=== PATIENT | female | born 1960 | race Caucasian/White ===

== ENCOUNTER → 2018-01-24 14:02 | Outpatient (CLI) | payer MEDICARE, MEDICAID, SELFPAY ==
--- NOTE | 2018-01-24 14:07 | CT_ITS ---
STUDY: CT ABDOMEN AND PELVIS WITH CONTRAST REASON FOR EXAM: Female, 57 years old. Lower abdominal pain history of necrotizing fasciitis, hysterectomy cholecystectomy gastric bypass partial colectomy and small bowel surgery. RADIATION DOSAGE (If Supplied By Facility): CTDIvol = ( 26.17 ) mGy, DLP = ( 1982.56 ) mGycm TECHNIQUE: Transaxial images were obtained from the dome of the diaphragm to the symphysis pubis without oral contrast. 100 ml of Isovue 300 contrast was administered. Sagittal and coronal images were reconstructed. Individualized dose optimization techniques were used for this CT. COMPARISON: May 03, 2012 CT scan abdomen and pelvis FINDINGS: The visualized lung bases are unremarkable. The visualized portions of the heart are within normal limits. Normal liver. There are surgical clips in the gallbladder fossa consistent with a prior cholecystectomy. Normal spleen. There is diffuse atrophy of the pancreas. Normal bilateral adrenal glands. There is a small focus of cortical thinning in the right kidney suggesting old infection or infarction. There are least 2 stones in the lower pole of the right kidney each measuring approximately 4.3 mm. There is mild right-sided pelviectasis tortuosity of the right ureter without evidence of stone along the course of the ureter. Normal left kidney. There is postoperative change at the gastroesophageal junction and stomach which appears to be peristaltic and similar in contour when compared to the prior study. There is a patulous partially contrasted appearance of the duodenum. There is also contrast within the small bowel. There is fairly dense contrast within the colon with a somewhat chronic stasis appearance. There is a moderate amount of stool in the colon. There is postoperative change adjacent to the left side of the distal colon/rectum. There is lobulated focal fat, adjacent to the right side of the sigmoid and rectum. Since prior study there is been development of a anterior lower abdominal wall hernia possibly within a postoperative site for which the large bowel herniates down into the left side of the zackery pubis best appreciated on the sagittal view image #103 where the bowel is anterior to the symphysis pubis. This is also seen on image #122. This area suggestive of the cecum allowing for the remaining bowel. There is no visualize colon on the left side and is been removed. There is postoperative change in the small bowel within the pelvis proximal to this hernia. The opening measures approximately 5.2 cm and is directly above the symphysis pubis. The herniation measures approximately 9.3 x 5.7 cm. The bowel appears distended but not necessarily obstructed at this time. There is non-visualization of the appendix. Normal abdominal aorta. Normal inferior vena cava. There are a few nonspecific perinephric lymph nodes. Bladder is decompressed and low lying. There is absence of the uterus consistent with a prior hysterectomy. There is a visualized scarring in the abdominal wall and a absent or atrophied appearance of the rectus muscle in the lower abdominal wall. Normal osseous structures. CT/Abdomen/Pelvis WITH Contrast IMPRESSION: In an area of prior surgical site or scarring in anterior pelvic wall, there is a hernia above the symphysis pubis extending into the mons pubis region with neck of 5.2 cm, through which large bowel and small bowel herniate up to 9.3 x 5.7 cm. Recommend consideration for surgical consult. Status post operative change stomach, status post partial colectomy, status post cholecystectomy Status post hysterectomy and postoperative change anterior abdominal wall. Nonobstructing lower pole right renal stones. Electronically Signed: Alyssa Quinones MD at 9:21 EDT Tel , Service support ,
== END ==
PROVIDERS: Family Provider Internal Medicine; PCP Internal Medicine
DX: R10.30 Lower abdominal pain, unspecified (principal)
CPT/HCPCS: 74177; Q9967

== ENCOUNTER → 2018-06-09 12:09 | Outpatient (CLI) | payer MEDICARE, MEDICAID, SELFPAY ==
[2018-06-09 12:31] LABS: International Normalized Ratio 2.2; Prothrombin Time (Protime)PT. 24.7 SECONDS (11.7-14.9)
== END ==
PROVIDERS: Family Provider Internal Medicine; PCP Internal Medicine; Referring Provider Internal Medicine; Visit Provider Internal Medicine
DX: I26.99 Other pulmonary embolism without acute cor pulmonale (principal)
CPT/HCPCS: 85610

== ENCOUNTER → 2018-07-04 12:04 | Outpatient (CLI) | payer MEDICARE, MEDICAID, SELFPAY ==
[2018-07-04 12:18] LABS: International Normalized Ratio 1.4; Prothrombin Time (Protime)PT. 17.5 SECONDS (11.7-14.9)
--- OUTSIDE RECORDS SUMMARY | 2018-09-08 01:26 | XMS RPT_ITS ---
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 Jones for large incisional hernia. ?Biomarkers were negative. ?No evidence of right heart strain on CT. LE venous duplex negative. Patient discharged on Lovenox to coumadin bridge to be followed by Marcella OWEN. She is here today for follow up. Subjective: She is here today with . Activity: Back to normal. No plan for surgery in the future. States this was her 47th and final abdominal surgery. Back to driving. Admissions/ED visits since last seen: 06/06 for abdominal discomfort, prescribed flexeril, since has resolved She follows with Marcella OWEN. Last INR 1.3 on 06/26. Home dosage Saturday/Saturday 7.5mg, 5mg daily, next check this Saturday. Missed dosage: none Denies chest pain, SOB, worsening abdominal discomfort, UE/LE swelling. Endorses periodic wheezing while lying down but quickly resolved without medication. Appetite is good. Bleeding: Denies epistaxis, hemoptysis, hematemesis, hematuria, hematochezia or melena. Objective: BP 106/66 (BP Site: Left Arm, BP Cuff Size: Regular Adult) Pulse 110 Temp 36.8 ?C (98.2 ?F) (Oral) Ht 177.8 cm (5' 10) Wt 96.7 kg (213 lb 3.2 oz) SpO2 98% BMI 30.59 kg/m? General: Alert and oriented, in no acute distress, pleasant mood. Skin: Healthy, intact, no ulcerations, no rashes. HEENT: Head normocephalic, neck supple, no JVD, no carotid bruit. Cardiovascular: Heart has a regular rate and rhythm without murmur. Respiratory: Lungs clear auscultation bilaterally. Gastrointestinal: Abdomen soft and nontender. No abdominal bruit or palpable mass. Wearing binder Musculoskeletal: No cyanosis or clubbing. Peripheral vascular: Dorsalis pedis and posterior tibial pulses 2+/2 bilaterally. Feet and toes warm pink and well perfused. Lower extremities: No UE/LE swelling Labs Component INR (POCT) Internal Quality Check Latest Ref Rng AND Units 0.8 - 1.2 06/02/2018 1.4 (H) Acceptable 06/13/2018 2.8 (H) Acceptable 06/20/2018 1.8 (H) Acceptable 06/26/2018 1.3 (H) Acceptable Imaging 05/26/2018 CT Chest PE IMPRESSION: 1. ?The study is positive for pulmonary thromboemboli as described. 2. ?There are bilateral pleural effusions, right greater than left, with associated dependent airspace opacities in both lower lobes most commonly secondary to nonspecific atelectasis. 3. . There is a hiatal hernia. ?The intrathoracic esophagus is mildly distended and fluid-filled. ?Sequelae of a motility disorder such as GERD must be considered. Evaluation for thromboembolic disease: ?? ? - Right heart chambers: ?No thromboembolic disease. ?? ? - Main pulmonary arteries: ?No thromboembolic disease. ?? ? - Lobar pulmonary arteries: ?No thromboembolic disease. ?? ? - Segmental/subsegmental pulmonary arteries: There is an intraluminal filling defect in the anterior segmental artery of the left upper lobe (image 86) with probable extension into subsegmental arteries. ?Filling defects are also suspected in the distal apico-posterior segmental artery of the left upper lobe extending into subsegmental arteries (images 62-72). 05/27/2018 LE Venous Duplex IMPRESSION ? RIGHT SIDE - DEEP VEINS Negative for acute deep vein thrombosis. Only segments visualized of the posterior tibial veins and peroneal veins. RIGHT SIDE - SUPERFICIAL VEINS Unable to visualize the small saphenous vein. ? LEFT SIDE - DEEP VEINS Technically limited study. Negative for acute deep vein thrombosis in vessels visualized. Unable to visualize the peroneal veins. Only segments visualized of the posterior tibial veins. Assessment: 57 year old female found to have provoked PE (left segmental/subsegmental) on 05/26/2018 in the setting of abdominal surgery. LE venous duplex was negative. Currently on coumadin and tolerating. No clinical signs of bleeding. Follows with Marcella CC, INR's have been mostly subtherapeutic. Dose adjusted with next scheduled INR on Saturday. Denies any issues with bleeding. No LE/UE symptoms. Plan: _Continue coumadin being followed by Marcella [facility] -Target INR 2.0-3.0 _Continue to monitor for bleeding _Duration of treatment: at least 3 months for provoked VTE (VTE event 05/26/2018) _Follow up with Dr. Webster in 2 months to discuss duration of treatment JESSICA Pérez Referring Provider: MELINA MAGALLON (JESSICA) [[id number]] Allergies As of Date: 07/02/2018 Noted Allergy Reaction BACTRIM (SULFAMETHOXAZOLE) 08/13/2011 14 - Other: See Comments Comments: Cardiac issues, CIPRO IV only CIPRO I.V. (CIPROFLOXACIN) 06/28/2006 4 - Hives 12 - Shortness of Breath DIMETAPP (PSEUDOEPHEDRINE-DM) 12/04/2005 11 - Vomiting Comments: violently ill when overdosed on it as child ERYTHROMYCIN 11/29/2005 Comments: hives ok with zithromax KEFLEX (CEPHALEXIN) 11/29/2005 Comments: OK to give zosyn per MD 1-12-07 LATEX 11/29/2005 2 - Rash Comments: rash, breaks out everywhere, n/v , feels weak Can still eat food that is considered for latex allergies No allergic to latex foods per patient isaak 05/07/11 TETRACYCLINE 02/05/2006 Comments: hives Date Reviewed: 07/02/2018 Reviewed by: Melina Agarwal) JESSICA Magallon - Fully Assessed Reason for Visit: Follow Up [171] Cmt: PE - hosp f/u Primary Visit Diagnosis:Acute pulmonary embolism without acute cor pulmonale, unspecified pulmonary embolism type (HCC) [I26.99] Other Visit Diagnosis:Anticoagulation management encounter [Z51.81, Z79.01] Prescriptions as of 07/02/2018 Sig: WARFARIN 5 MG TABLET Take 1 tablet by mouth once d* Patient taking differently: Take 5 mg by mouth once daily* CYCLOBENZAPRINE 10 MG TABLET Take 1 tablet by mouth three * ONDANSETRON HCL 4 MG TABLET Take 1 tablet by mouth every * COMPOUNDED PRESCRIPTION KNEE HIGH COMPRESSION STOCKIN* DIAPER,BRIEF,ADULT,DISPOSABLE 1 Each as needed. Dx: N36.0,* ONDANSETRON HCL 4 MG TABLET Take 1 tablet by mouth every * PANTOPRAZOLE 40 MG TABLET,DEL* Take 1 tablet by mouth twice * GABAPENTIN 100 MG CAPSULE 300 mg daily at bedtime METOPROLOL SUCCINATE ER 25 MG* Take 1 tablet by mouth every * FESOTERODINE ER 8 MG TABLET,E* Take 1 tablet by mouth once d* LOSARTAN 50 MG TABLET Take 1 tablet by mouth every * ASPIRIN 81 MG TABLET,DELAYED * Take 1 tablet by mouth every * AMLODIPINE 5 MG TABLET Take 2 tablets by mouth every* INSULIN GLARGINE (U-100) 100 * Inject 10 Units subcutaneousl* MELOXICAM 15 MG TABLET Take 1 tablet by mouth every * QUETIAPINE 100 MG TABLET Take 1 tablet by mouth every * ZOLPIDEM 5 MG TABLET Take 1 tablet by mouth at bed* ESTRADIOL 0.01% (0.1 MG/GRAM)* 1/2 inch of cream to lower va* CLONAZEPAM 1 MG TABLET Take 1 tablet by mouth daily * INSULIN ASPART U-100 100 UNI* 15 units before meals + 2 u p* DULOXETINE 60 MG CAPSULE,JAG* Take 1 capsule by mouth daily* POTASSIUM CHLORIDE ER 10 MEQ * Take 1 tablet by mouth twice * BLOOD SUGAR DIAGNOSTIC STRIPS TEST BLOOD SUGAR 6 TO 8 TIMES* LANCETS Use as instructed to test blo* BLOOD-GLUCOSE METER KIT As directed PEN NEEDLE, DIABETIC 33 GAUGE* 1 Each as directed. Use with * LANCETS REGULAR MISC 1 Each as directed. Use 6 x d* CHOLECALCIFEROL (VITAMIN D3) * Take 1 capsule by mouth once * MULTIVITAMIN WITH CALCIUM AND* Take 1 tablet by mouth twice * BLOOD SUGAR DIAGNOSTIC, DISC * 1 Each as directed. 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 Essential Hypertension, Benign [I10] INVALID FOR* More... Hyperpotassemia [E87.5] INVALID FOR*04/15/2017 Abdominal pain, left lower quadrant [R10.32] INVALID FOR*04/15/2017 Abdominal pain, right lower quadrant [R10.31] INVALID FOR*04/15/2017 Abdominal Pain, Generalized [R10.84] INVALID FOR* HTN (hypertension) [I10] 04/15/2017 More... GERD (Gastroesophageal Reflux Disease) [K21.9] More... Irritable Bowel Syndrome [K58.9] RSD lower limb [G90.529] 04/15/2017 Open wound of abdominal wall, anterior, complic* 04/15/2017 Depressive disorder, not elsewhere classified [* More... Morbid obesity (HCC) [E66.01] INVALID FOR*12/25/2016 Dietary surveillance and counseling [Z71.3] INVALID FOR*04/15/2017 Gastric bypass status for obesity [Z98.84] INVALID FOR*04/15/2017 More... Nausea AND vomiting [R11.2] INVALID FOR*04/15/2017 Other and unspecified postsurgical nonabsorptio*INVALID FOR*04/15/2017 Osteoporosis [M81.0] INVALID FOR*08/20/2013 On total parenteral nutrition (TPN) [Z78.9] INVALID FOR*04/15/2017 Malabsorption [K90.9] INVALID FOR* Fracture [T14.8XXA] INVALID FOR*04/15/2017 Hernia of abdominal wall [K43.9] INVALID FOR* H/O hyperglycemia [Z86.39] INVALID FOR*04/15/2017 Diarrhea [R19.7] INVALID FOR* Insomnia [G47.00] INVALID FOR* More... Diabetic neuropathy, painful (HCC) [E11.40] INVALID FOR* More... DM (diabetes mellitus) (HCC) [E11.9] INVALID FOR* More... Unspecified intestinal malabsorption [K90.9] INVALID FOR* More... Osteoporosis [M81.0] INVALID FOR* More... Vitamin D deficiency [E55.9] INVALID FOR* More... Post-operative state [Z98.890] INVALID FOR*04/15/2017 Obesity (BMI 30.0-34.9) [E66.9] INVALID FOR* More... Chronic pain in right shoulder [M25.511, G89.29]INVALID FOR* More... Impingement syndrome of right shoulder [M75.41] INVALID FOR* More... Migraines [G43.909] INVALID FOR* DDD (degenerative disc disease), lumbar [M51.36]INVALID FOR* Acute pain of right shoulder [M25.511] INVALID FOR* Ventral hernia without obstruction or gangrene *INVALID FOR* More... Mixed stress and urge urinary incontinence [N39*INVALID FOR* Incisional hernia [K43.2] INVALID FOR* Ventral hernia [K43.9] INVALID FOR* Acute pulmonary embolism (HCC) [I26.99] INVALID FOR* Disposition: Return in about 2 months (around 08/30/2018) for Dr. Webster. Follow-up and Disposition History Recorded Encounter Status:Closed by MELINA MAGALLON on 07/02/18 PROGRESS Observed: 07/01/2018 Status: COMPLETED Source: [place] 2:46 PM [facility] REPOSITORY HNO ID: [id number] Author: Melina Lamb (Jessica) JESSICA Magallon Service: (none) Author Type: Physician Programs Assistant Type: Progress Notes Filed: 07/02/2018 1:20 PM Note Text: [facility] [place] [facility] Department of Cardiovascular Medicine SECTION OF VASCULAR MEDICINE OUTPATIENT VISIT DATE July 02, 2018 OUTPATIENT VISIT TYPE ESTABLISHED Follow up regarding: Provoked PE (left segmental/subsegmental) in the setting of surgery 05/26/2018 Allergies: is allergic to bactrim [sulfamethoxazole]; cipro i.v. [ciprofloxacin]; dimetapp [pseudoephedrine-dm]; erythromycin; keflex [cephalexin]; latex; and tetracycline. Medications: warfarin (COUMADIN) 5 mg tablet Take 1 tablet by mouth once daily. cyclobenzaprine (FLEXERIL) 10 mg tablet Take 1 tablet by mouth three times daily as needed for Muscle Spasm or Pain. ondansetron (ZOFRAN) 4 mg tablet Take 1 tablet by mouth every 8 hours as needed for Nausea/Vomiting. Compression Knee Highs KNEE HIGH COMPRESSION STOCKINGS 30- 40 MM. DX: EDEMA Diaper,Brief, Adult,Disposable (PREVAIL ADJUST UNDERWEAR KIMBERLEY- ) misc 1 Each as needed. Dx: N36.0, K58.9 ondansetron (ZOFRAN) 4 mg tablet Take 1 tablet by mouth every 8 hours as needed (for nausea.). pantoprazole DR (PROTONIX) 40 mg tablet Take 1 tablet by mouth twice daily before meals (0600/1600). gabapentin (NEURONTIN) 100 mg capsule 300 mg daily at bedtime metoprolol succinate ER (TOPROL XL) 25 mg 24 hr tablet Take 1 tablet by mouth every evening. Fesoterodine (TOVIAZ) 8 mg Tb24 Take 1 tablet by mouth once daily. losartan (COZAAR) 50 mg tablet Take 1 tablet by mouth every evening. aspirin, enteric coated (ASPIRIN, ENTERIC COATED) 81 mg EC tablet Take 1 tablet by mouth every evening. amLODIPine (NORVASC) 5 mg tablet Take 2 tablets by mouth every evening. insulin glargine (BASAGLAR KWIKPEN U-100 INSULIN) 100 unit/mL (3 mL) inpn Inject 10 Units subcutaneously every 12 hours. 20 units sq twice daily meloxicam (MOBIC) 15 mg tablet Take 1 tablet by mouth every evening. QUEtiapine (SEROQUEL) 100 mg tablet Take 1 tablet by mouth every evening. zolpidem (AMBIEN) 5 mg tablet Take 1 tablet by mouth at bedtime as needed (for insomnia.) for up to 180 days. estradiol (ESTRACE) 0.01 % (0.1 mg/gram) vaginal cream 1/2 inch of cream to lower vagina qhs twice weekly clonazePAM (KLONOPIN) 1 mg tablet Take 1 tablet by mouth daily at bedtime for 30 days. insulin aspart U-100 (NOVOLOG) 100 unit/mL inpn 15 units before meals + 2 u per 50 >200 TDD 75 units DULoxetine (CYMBALTA) 60 mg capsule Take 1 capsule by mouth daily at bedtime. potassium chloride (K-TAB) 10 mEq tablet Take 1 tablet by mouth twice daily. blood sugar diagnostic (ONETOUCH ULTRA TEST) test strip TEST BLOOD SUGAR 6 TO 8 TIMES DAILY Dx: E11.9 Insulin:yes Lancets lancets Use as instructed to test blood sugars 8 times daily E11.9 Blood-Glucose Meter (ONETOUCH ULTRA2) monitoring kit As directed pen needle, diabetic 33 gauge x 5/32 ndle 1 Each as directed. Use with injections 4x daily E11.9 LANCETS REGULAR MISC 1 Each as directed. Use 6 x daily cholecalciferol, Vitamin D3, (VITAMIN D3) 50,000 unit cap capsule Take 1 capsule by mouth once each week. Take with your largest meal of the day Multivits,CalciumAND Minerals-FA 267 mcg tab Take 1 tablet by mouth twice daily. Centrum Adult Chewables MVI with minerals is preferred; must be chewable Blood Sugar Diagnostic, Disc strp 1 Each as directed. CHECK BLOOD GLUCOSE EIGHT TIMES PER DAY/ Review of history: 57 year old female with PMH of multiple abdominal surgeries, DM, GERD, HTN, obesity s/p gastric bypass found to have provoked PE on chest CT in the setting of?bilateral myofasical flap with mesh repair on 05/21/[address] Jones for large incisional hernia. ?Biomarkers were negative. ?No evidence of right heart strain on CT. LE venous duplex negative. Patient discharged on Lovenox to coumadin bridge to be followed by Marcella OWEN. She is here today for follow up. Subjective: She is here today with . Activity: Back to normal. No plan for surgery in the future. States this was her 47th and final abdominal surgery. Back to driving. Admissions/ED visits since last seen: 06/06 for abdominal discomfort, prescribed flexeril, since has resolved She follows with Marcella OWEN. Last INR 1.3 on 06/26. Home dosage Saturday/Saturday 7.5mg, 5mg daily, next check this Saturday. Missed dosage: none Denies chest pain, SOB, worsening abdominal discomfort, UE/LE swelling. Endorses periodic wheezing while lying down but quickly resolved without medication. Appetite is good. Bleeding: Denies epistaxis, hemoptysis, hematemesis, hematuria, hematochezia or melena. Objective: BP 106/66 (BP Site: Left Arm, BP Cuff Size: Regular Adult) Pulse 110 Temp 36.8 ?C (98.2 ?F) (Oral) Ht 177.8 cm (5' 10) Wt 96.7 kg (213 lb 3.2 oz) SpO2 98% BMI 30.59 kg/m? General: Alert and oriented, in no acute distress, pleasant mood. Skin: Healthy, intact, no ulcerations, no rashes. HEENT: Head normocephalic, neck supple, no JVD, no carotid bruit. Cardiovascular: Heart has a regular rate and rhythm without murmur. Respiratory: Lungs clear auscultation bilaterally. Gastrointestinal: Abdomen soft and nontender. No abdominal bruit or palpable mass. Wearing binder Musculoskeletal: No cyanosis or clubbing. Peripheral vascular: Dorsalis pedis and posterior tibial pulses 2+/2 bilaterally. Feet and toes warm pink and well perfused. Lower extremities: No UE/LE swelling Labs Component INR (POCT) Internal Quality Check Latest Ref Rng AND Units 0.8 - 1.2 06/02/2018 1.4 (H) Acceptable 06/13/2018 2.8 (H) Acceptable 06/20/2018 1.8 (H) Acceptable 06/26/2018 1.3 (H) Acceptable Imaging 05/26/2018 CT Chest PE IMPRESSION: 1. ?The study is positive for pulmonary thromboemboli as described. 2. ?There are bilateral pleural effusions, right greater than left, with associated dependent airspace opacities in both lower lobes most commonly secondary to nonspecific atelectasis. 3. . There is a hiatal hernia. ?The intrathoracic esophagus is mildly distended and fluid-filled. ?Sequelae of a motility disorder such as GERD must be considered. Evaluation for thromboembolic disease: ?? ? - Right heart chambers: ?No thromboembolic disease. ?? ? - Main pulmonary arteries: ?No thromboembolic disease. ?? ? - Lobar pulmonary arteries: ?No thromboembolic disease. ?? ? - Segmental/subsegmental pulmonary arteries: There is an intraluminal filling defect in the anterior segmental artery of the left upper lobe (image 86) with probable extension into subsegmental arteries. ?Filling defects are also suspected in the distal apico-posterior segmental artery of the left upper lobe extending into subsegmental arteries (images 62-72). 05/27/2018 LE Venous Duplex IMPRESSION ? RIGHT SIDE - DEEP VEINS Negative for acute deep vein thrombosis. Only segments visualized of the posterior tibial veins and peroneal veins. RIGHT SIDE - SUPERFICIAL VEINS Unable to visualize the small saphenous vein. ? LEFT SIDE - DEEP VEINS Technically limited study. Negative for acute deep vein thrombosis in vessels visualized. Unable to visualize the peroneal veins. Only segments visualized of the posterior tibial veins. Assessment: 57 year old female found to have provoked PE (left segmental/subsegmental) on 05/26/2018 in the setting of abdominal surgery. LE venous duplex was negative. Currently on coumadin and tolerating. No clinical signs of bleeding. Follows with Marcella OWEN, INR's have been mostly subtherapeutic. Dose adjusted with next scheduled INR on Saturday. Denies any issues with bleeding. No LE/UE symptoms. Plan: _Continue coumadin being followed by Marcella OWEN -[facility] INR 2.0-3.0 _Continue to monitor for bleeding _Duration of treatment: at least 3 months for provoked VTE (VTE event 05/26/2018) _Follow up with Dr. Webster in 2 months to discuss duration of treatment JESSICA Pérez PROGRESS Observed: 06/26/2018 Status: COMPLETED Source: [place] 4:18 PM [facility] REPOSITORY HNO ID: [id number] Author: Paulina Rea LPN Service: (none) Author Type: (none) Type: Progress Notes Filed: 06/26/2018 4:21 PM Note Text: Phoned patient and went over coumadin instructions from Ibrahima Sarkar MOUNTER 5 mg daily except Saturday 7.5 mg and recheck INR in one week with understanding. Patient said I have to take so many pills but said coumadin tablets are 5 mg explained to take one and one half pills to make 7.5 mg she thought her pills were lower dose pills. Scheduled appt coumadin clinic for 07/03/2018. PROGRESS Observed: 06/26/2018 Status: COMPLETED Source: [place] 3:41 PM [facility] REPOSITORY HNO ID: [id number] Author: Ibrahima Sarkar Service: (none) Author Type: Nurse Practitioner Type: Progress Notes Filed: 06/26/2018 4:21 PM Note Text: Please have patient begin taking 5mg daily except take 7.5mg on Saturday. Recheck INR in 1 week. Ibrahima Sarkar APRN.CNP PROGRESS Observed: 06/26/2018 Status: COMPLETED Source: [place] 2:21 PM [facility] REPOSITORY HNO ID: [id number] Author: Francoise Zhao RN Service: (none) Author Type: (none) Type: Progress Notes Filed: 06/26/2018 2:23 PM Note Text: patient had inr completed at [facility] patients inr is 1.3(patients inr range is 2.0-3.0) patient is currently taking 2.5mg Sun and 5mg all other days patients last dose change was on 06/20/18 due to a low level of 1.8 (dose at that time was 2.5mg Sat,Sun and 5mg all other days) patient has had no changes in medication except for couamdin and no missed doses and no change in diet Advised patient that they would be contacted regarding medication dose and when to follow up after information is reviewed by provider. After provider review please contact the patient with information and schedule follow up appointment with coumadin clinic. PROGRESS Observed: 06/20/2018 Status: COMPLETED Source: [place] 5:17 PM [facility] REPOSITORY HNO ID: [id number] Author: Francoise Zhao RN Service: (none) Author Type: (none) Type: Progress Notes Filed: 06/20/2018 5:17 PM Note Text: PATIENT NOTIFIED OF INFORMATION PROGRESS Observed: 06/20/2018 Status: COMPLETED Source: [place] 5:01 PM [facility] REPOSITORY HNO ID: [id number] Author: Leon Jimenez Service: (none) Author Type: Physician Type: Progress Notes Filed: 06/20/2018 5:17 PM Note Text: Please ask the patient to take 2.5 mgs only on sundays and 5 mgs the rest of the week Recheck in a couple weeks PROGRESS Observed: 06/20/2018 Status: COMPLETED Source: [place] 2:44 PM [facility] REPOSITORY HNO ID: [id number] Author: Francoise Zhao RN Service: (none) Author Type: (none) Type: Progress Notes Filed: 06/20/2018 2:45 PM Note Text: patient had inr completed at [facility] patients inr is 1.8 (patients inr range is 2.0-3.0) patient is currently taking 2.5mg Sat,Sun and 5mg all other days patients last dose change was on 06/13/18 due to provider choice (level was normal at 2.8, dose was 5mg daily) patient has had no changes in medication except for coumadin and no missed doses and no change in diet Advised patient that they would be contacted regarding medication dose and when to follow up after information is reviewed by provider. After provider review please contact the patient with information and schedule follow up appointment with coumadin clinic. FYI - patient has been scheduled for a 1 week follow up inr on 06/26/18 CNOV Observed: 06/16/2018 Status: COMPLETED Source: [place] 3:20 PM [facility] REPOSITORY Office Visit (GENSMN) ADRI GOYAL ([id number]) 1960 F TPN Date Time Provider Department 06/16/18 3:20 PM DALIA JONES During your visit today, we recorded the following information about you: DALIA JONES MD 06/16/2018 3:16 PM Signed Adri Mcginnis Jay Jay is here for a post-op visit after open ventral hernia repair with mesh on 05/21. Her post-op course was complicated by a PE. she is doing very well and has no complaints. her incision has healed well and there is no evidence of hernia recurrence. We removed her drain, sutures and rona in clinic. I will see her back in 3 months for her next post- operative visit. Referring Provider: LEON JIMENEZ [[id number]] Allergies As of Date: 06/16/2018 Noted Allergy Reaction BACTRIM (SULFAMETHOXAZOLE) 08/13/2011 14 - Other: See Comments Comments: Cardiac issues, CIPRO IV only CIPRO I.V. (CIPROFLOXACIN) 06/28/2006 4 - Hives 12 - Shortness of Breath DIMETAPP (PSEUDOEPHEDRINE-DM) 12/04/2005 11 - Vomiting Comments: violently ill when overdosed on it as child ERYTHROMYCIN 11/29/2005 Comments: hives ok with zithromax KEFLEX (CEPHALEXIN) 11/29/2005 Comments: OK to give zosyn per MD 1--07 LATEX 11/29/2005 2 - Rash Comments: rash, breaks out everywhere, n/v , feels weak Can still eat food that is considered for latex allergies No allergic to latex foods per patient isaak 05/07/11 TETRACYCLINE 02/05/2006 Comments: hives Date Reviewed: 06/16/2018 Reviewed by: Dalia Jones - Fully Assessed Primary Visit Diagnosis:Ventral hernia without obstruction or gangrene [K43.9] Prescriptions as of 06/16/2018 Sig: AMLODIPINE 5 MG TABLET Take 2 tablets by mouth every* ASPIRIN 81 MG TABLET,DELAYED * Take 1 tablet by mouth every * BLOOD SUGAR DIAGNOSTIC STRIPS TEST BLOOD SUGAR 6 TO 8 TIMES* BLOOD SUGAR DIAGNOSTIC, DISC * 1 Each as directed. CHECK BLO* BLOOD-GLUCOSE METER KIT As directed CHOLECALCIFEROL (VITAMIN D3) * Take 1 capsule by mouth once * CLONAZEPAM 1 MG TABLET Take 1 tablet by mouth daily * COMPOUNDED PRESCRIPTION KNEE HIGH COMPRESSION STOCKIN* CYCLOBENZAPRINE 10 MG TABLET Take 1 tablet by mouth three * DIAPER,BRIEF,ADULT,DISPOSABLE 1 Each as needed. Dx: N36.0,* DULOXETINE 60 MG CAPSULE,JAG* Take 1 capsule by mouth daily* ESTRADIOL 0.01% (0.1 MG/GRAM)* 1/2 inch of cream to lower va* FESOTERODINE ER 8 MG TABLET,E* Take 1 tablet by mouth once d* GABAPENTIN 100 MG CAPSULE 300 mg daily at bedtime INSULIN ASPART U-100 100 UNI* 15 units before meals + 2 u p* INSULIN GLARGINE (U-100) 100 * Inject 10 Units subcutaneousl* LANCETS Use as instructed to test blo* LANCETS REGULAR MISC 1 Each as directed. Use 6 x d* LOSARTAN 50 MG TABLET Take 1 tablet by mouth every * MELOXICAM 15 MG TABLET Take 1 tablet by mouth every * METOPROLOL SUCCINATE ER 25 MG* Take 1 tablet by mouth every * MULTIVITAMIN WITH CALCIUM AND* Take 1 tablet by mouth twice * ONDANSETRON HCL 4 MG TABLET Take 1 tablet by mouth every * ONDANSETRON HCL 4 MG TABLET Take 1 tablet by mouth every * PANTOPRAZOLE 40 MG TABLET,DEL* Take 1 tablet by mouth twice * PEN NEEDLE, DIABETIC 33 GAUGE* 1 Each as directed. 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 Essential Hypertension, Benign [I10] INVALID FOR* More... Hyperpotassemia [E87.5] INVALID FOR*04/15/2017 Abdominal pain, left lower quadrant [R10.32] INVALID FOR*04/15/2017 Abdominal pain, right lower quadrant [R10.31] INVALID FOR*04/15/2017 Abdominal Pain, Generalized [R10.84] INVALID FOR* HTN (hypertension) [I10] 04/15/2017 More... GERD (Gastroesophageal Reflux Disease) [K21.9] More... Irritable Bowel Syndrome [K58.9] RSD lower limb [G90.529] 04/15/2017 Open wound of abdominal wall, anterior, complic* 04/15/2017 Depressive disorder, not elsewhere classified [* More... Morbid obesity (HCC) [E66.01] INVALID FOR*12/25/2016 Dietary surveillance and counseling [Z71.3] INVALID FOR*04/15/2017 Gastric bypass status for obesity [Z98.84] INVALID FOR*04/15/2017 More... Nausea AND vomiting [R11.2] INVALID FOR*04/15/2017 Other and unspecified postsurgical nonabsorptio*INVALID FOR*04/15/2017 Osteoporosis [M81.0] INVALID FOR*08/20/2013 On total parenteral nutrition (TPN) [Z78.9] INVALID FOR*04/15/2017 Malabsorption [K90.9] INVALID FOR* Fracture [T14.8XXA] INVALID FOR*04/15/2017 Hernia of abdominal wall [K43.9] INVALID FOR* H/O hyperglycemia [Z86.39] INVALID FOR*04/15/2017 Diarrhea [R19.7] INVALID FOR* Insomnia [G47.00] INVALID FOR* More... Diabetic neuropathy, painful (HCC) [E11.40] INVALID FOR* More... DM (diabetes mellitus) (HCC) [E11.9] INVALID FOR* More... Unspecified intestinal malabsorption [K90.9] INVALID FOR* More... Osteoporosis [M81.0] INVALID FOR* More... Vitamin D deficiency [E55.9] INVALID FOR* More... Post-operative state [Z98.890] INVALID FOR*04/15/2017 Obesity (BMI 30.0-34.9) [E66.9] INVALID FOR* More... Chronic pain in right shoulder [M25.511, G89.29]INVALID FOR* More... Impingement syndrome of right shoulder [M75.41] INVALID FOR* More... Migraines [G43.909] INVALID FOR* DDD (degenerative disc disease), lumbar [M51.36]INVALID FOR* Acute pain of right shoulder [M25.511] INVALID FOR* Ventral hernia without obstruction or gangrene *INVALID FOR* More... Mixed stress and urge urinary incontinence [N39*INVALID FOR* Incisional hernia [K43.2] INVALID FOR* Ventral hernia [K43.9] INVALID FOR* Acute pulmonary embolism (HCC) [I26.99] INVALID FOR* Encounter Status:Closed by DALIA JONES MD on 06/16/18 PROGRESS Observed: 06/16/2018 Status: COMPLETED Source: [place] 3:12 PM [facility] REPOSITORY HNO ID: [id number] Author: Dalia Jones Service: (none) Author Type: Physician Type: Progress Notes Filed: 06/16/2018 3:16 PM Note Text: Adri Goyal is here for a post-op visit after open ventral hernia repair with mesh on 05/21. Her post-op course was complicated by a PE. she is doing very well and has no complaints. her incision has healed well and there is no evidence of hernia recurrence. We removed her drain, sutures and rona in clinic. I will see her back in 3 months for her next post-operative visit. PROGRESS Observed: 06/13/2018 Status: COMPLETED Source: [place] 4:20 PM [facility] REPOSITORY HNO ID: [id number] Author: Ashley Albarran LPN Service: (none) Author Type: (none) Type: Progress Notes Filed: 06/13/2018 4:21 PM Note Text: patient notified with understanding. PROGRESS Observed: 06/13/2018 Status: COMPLETED Source: [place] 3:22 PM [facility] REPOSITORY HNO ID: [id number] Author: Ibrahima Sarkar Service: (none) Author Type: Nurse Practitioner Type: Progress Notes Filed: 06/13/2018 4:21 PM Note Text: Please have patient begin taking 2.5mg on Saturday and Sundays and 5mg all other days and repeat INR in 1 week as scheduled. Ibrahima Sarkar APRN.KIRT PROGRESS Observed: 06/13/2018 Status: COMPLETED Source: [place] 1:48 PM [facility] REPOSITORY HNO ID: [id number] Author: Francoise Zhao RN Service: (none) Author Type: (none) Type: Progress Notes Filed: 06/13/2018 1:50 PM Note Text: patient had inr completed at [facility] patients inr is 2.8 (patients inr range is 2.0-3.0) patient is currently taking 5mg daily patients last dose change was on 06/09/18 due to therapeutic level (lovenox was stopped and pt continued 5mg coumadin daily) patient has had no changes in medication except for stopping lovenox and no missed doses and no change in diet Advised patient to continue on the same dose(s) and that they would only be contacted regarding dosage and follow up instructions after review with provider, if a change is needed. Written instructions given and patient verbalized understanding. Presently scheduled in 1 week (06/20/18) for follow up INR. PROTIME Collected: 06/09/2018 Status: F Source: [place] 11:23 AM [facility] REPOSITORY TYPE CODE TESTS RESULT OUT OF REFERENCE UNITS RANGE LAB PSEC 9.7-13.0 sec Test PT sent to [facility]. Result Comment: Account Credited HIDE LAB INR 0.9-1.3 Test sent to PT INR [facility]. Result Comment: Account Credited HIDE PROTHROMBIN TIME W/INR Collected: 06/09/2018 Status: F Source: [place] 11:23 AM [facility] REPOSITORY TYPE CODE TESTS RESULT OUT OF RANGE REFERENCE UNITS LAB L300.4150 11.7-14.9 SECONDS High PROTIME 24.7 LAB L300.4200 Normal INR 2.2 Performed By: #### L300.3900 #### [facility] [address] [place], [address] ED PROV NOTE Observed: 06/06/2018 Status: COMPLETED Source: [place] 6:08 PM [facility] REPOSITORY HNO ID: [id number] Author: Saba Porras MD Service: Emergency Medicine Author Type: Physician Type: ED Provider Notes Filed: 06/08/2018 12:14 AM Note Text: ED Provider Note Patient Name: Adri Goyal SERVICE DATE: 06/06/18 History Patient presents with: Wound Check: Post op incision on ABD for hernia repair. Noticed increase in drainage, low grade fever and chills. HPI 57 year old female with PMH of multiple abdominal surgeries for bowel section and reconstruction of abdominal wall after necrotizing fascitis who underwent abdominal hernia repair w/ mesh on 05/21 post-operative course c/b PE on lovenox to warfarin bridge that presents to emergency department per recommendations of outpatient general surgeon for evaluation of abdominal pain and nausea that has not improved since operation and hospital discharge. Reports 09/24 sharp incisional abdominal pain that worsens with direct pressure and has not resolved despite tylenol and oxycodone. She also endorses subjective low grade fevers 99-100F, severe nausea and vomiting with clear emesis that has resulted in poor PO intake. Does not take an anti-emetic medications. She has one JUVENTINO drain that has stable output of 2-3 ounces per day of serosanguinous drainage. PAST MEDICAL HISTORY Diagnosis Date - Abdominal pain, generalized CHRONIC PAIN MANAGEMENT - Bacterial overgrowth syndrome - Bowel disease - Depressive disorder, not elsewhere classified on cymbalta - Diabetes mellitus (HCC) 1980s on insulin since 1982 - Fracture - GERD (gastroesophageal reflux disease) resolved since 2004 - HTN (hypertension) resolved since 2004 - Incisional hernia without mention of obstruction or gangrene - Irritable bowel syndrome - Necrotizing fasciitis (HCC) - Obesity, unspecified 05-23-10 STATED BMI 35.91 Ht: 70 Wt: 250 lbs - Open wound of abdominal wall, anterior, complicated 1 - PMH - PAST MEDICAL HISTORY OF irritable bowel syndrome, necrotizing fasciitis, hypertension, diabetes, GERD, gastritis, - PMH - PAST MEDICAL HISTORY OF 09/2009 left foot break - RSD lower limb seen by pain management PAST SURGICAL HISTORY Procedure Laterality Date - ARTHROS SHLDR DX W/WO SYNV BX Right 05/03/2017 Right shoulder arthroscopy, glenoid chondroplasty - FEEDING TUBE-SPECIFY J-tube - GASTRIC BYPASS, LION-EN-Y 04/27/11 - HYSTERECTOMY HX 2003 - MIDLINE INSERTION/CONSULT 05/25/2018 - PAST SURGICAL HISTORY OF colostomy, partial colectomy,OSMAR/BSO, right hand tendon rplaced, fatty tumor excision back and thigh,ulnar nreve surgery bilaterally, tonsillectomy - PAST SURGICAL HISTORY OF 2005 repair of fistulas - PAST SURGICAL HISTORY OF 2005 translupe colostomy - PAST SURGICAL HISTORY OF 2004 debredement due to necratizing fascitis - PAST SURGICAL HISTORY OF 2005 hysterectomy - PAST SURGICAL HISTORY OF STATES > 113 ABDOMINAL SURGERIES - PAST SURGICAL HISTORY OF resversal of colostomy - PAST SURGICAL HISTORY OF 10/2015 hernia repair/abdominal muscle repair - REPAIR COMPL ROTATOR CUFF AVULSN,CHR Right 05/03/2017 Glenoid chondroplasty, labtral debridement, SAD - TONSILLECTOMY HX 1977 FAMILY HISTORY Problem Relation Age of Onset - other (Bipolar) Mother - Diabetes Father Type 2 - Heart Father hypertension - Colon Cancer Paternal Grandfather dx'd age 61? - Hypertension Paternal Grandfather - Diabetes Paternal Grandfather Type 2 - Heart Daughter - Breast Cancer Paternal Aunt - other (Hypoplastic Left heart) Son Social History Social History Main Topics - Smoking status: Never Smoker - Smokeless tobacco: Never Used - Alcohol use No - Drug use: No - Sexual activity: Yes Partners: Male ALLERGIES Allergen Reactions - Bactrim [Sulfametho* Other: See Comments Cardiac issues, CIPRO IV only - Cipro I.V. [Ciprofl* Hives, Shortness of Breath - Dimetapp [Pseudoeph* Vomiting violently ill when overdosed on it as child - Erythromycin hives ok with zithromax - Keflex [Cephalexin] OK to give zosyn per 06-28-06 - Latex Rash rash, breaks out everywhere, n/v , feels weak Can still eat food that is considered for latex allergies No allergic to latex foods per patient [facility] 05/07/11 - Tetracycline hives Review of Systems Constitutional: Positive for appetite change, chills, fatigue and fever. HENT: Negative. Eyes: Negative. Respiratory: Negative for cough and shortness of breath. Cardiovascular: Negative for chest pain and leg swelling. Gastrointestinal: Positive for abdominal pain, diarrhea (chronic), nausea and vomiting. Negative for abdominal distention and blood in stool. Endocrine: Negative. Genitourinary: Negative. Musculoskeletal: Negative. Skin: Negative. Allergic/Immunologic: Negative. Neurological: Negative for dizziness, syncope, weakness, light-headedness and numbness. Hematological: Negative. Psychiatric/Behavioral: Negative. Physical Exam BP 158/84 Pulse 92 Temp (Src) 98.4 (Oral) Resp 17 Ht 5' 10 (1.78m) Wt 220 lb (99.8kg) SpO2 100% BMI 31.57 kg/(m2). Physical Exam Constitutional: She is oriented to person, place, and time. She appears well-developed and well-nourished. No distress. HENT: Head: Normocephalic and atraumatic. Eyes: Pupils are equal, round, and reactive to light. Conjunctivae and EOM are normal. Neck: Normal range of motion. Neck supple. Cardiovascular: Normal rate, regular rhythm, normal heart sounds and intact distal pulses. Exam reveals no gallop and no friction rub. No murmur heard. Pulmonary/Chest: Effort normal and breath sounds normal. No respiratory distress. Abdominal: Bowel sounds are normal. Extensive surgical incision noted that is clear, dry and intact without drainage. Slightly erythema peripheral to incision site. Severe tenderness to palpation along incision. JUVENTINO drainage with serosanguinous fluid. Musculoskeletal: Normal range of motion. She exhibits no edema or tenderness. Neurological: She is alert and oriented to person, place, and time. Skin: Skin is warm and dry. Diagnostic Testing ED Labs Ordered and Reviewed COMP METABOLIC PANEL - Abnormal; Notable for the following: Result Value Ref Range Protein, Total 6.0 (*) 6.3 - 8.0 g/dL Albumin 3.4 (*) 3.9 - 4.9 g/dL Glucose 122 (*) 74 - 99 mg/dL Potassium 3.4 (*) 3.7 - 5.1 mmol/L All other components within normal limits CBC + DIFF - Abnormal; Notable for the following: RBC 3.41 (*) 3.90 - 5.20 m/uL Hemoglobin 9.5 (*) 11.5 - 15.5 g/dL Hematocrit 29.7 (*) 36.0 - 46.0 % Platelet Count 452 (*) 150 - 400 k/uL All other components within normal limits URINALYSIS WITH MICROSCOPIC Procedures ED Course / Clinical Impression Clinical Impressions as of Jun 06 1841 Post-operative pain Ventral hernia without obstruction or gangrene MDM / Disposition / Plan MDM Patient with extensive abdominal surgical history most recently abdominal hernia repair with mesh 2 weeks ago who presents to ER per recommendations of outpatient general surgeon for evaluation of persistent abdominal pain, nausea and subjective low grade fevers. Patient is non-ill appearing and physical exam reveals soft, tender abdominal with intact tender incision without drainage. General surgery was consulted and upon evaluation stated no current indications for re-imaging or admission. CBC and CMP were unremarkable. Symptoms improved with IV fluids, zofran and flexeril. Patient was medical stable and, per general surgery recommendations, discharge home with zofran, flexeril and 3 days of oxycodone. Patient advised if further pain medications needed to contact surgery team or primary care physician. The patient was DISCHARGED: Counseled patient regarding lab results AND suspected diagnosis AND need for follow-up. Discharged home with verbal and written instructions. They were instructed to return as needed for persistent or worsening symptoms or any new concerns. Condition at time of disposition: improved SIGNATURE: DO Nilay Lindsay (Ezekiel) Gunnar Resident 06/06/18 [id number] Attending Note I evaluated the patient and personally participated in the palomo components. I agree with the resident's findings and plan as documented and have discussed the case and management of the patient's care with the resident. 57 yo F s/p repeated abdominal mesh surgery on 05/21 and discharged from [facility] on 05/31 here with her from [facility] because her pain has not improved since discharge and appetitie not good. She is taking PO and is passing stool and flatus. Abd is soft, incision C/D/I. Pain meds and [facility] consult. Patient care endorsed to Dr. Chang at 18:15, pending their consult. Signature: Saba Porras MD Date: 06/08/2018 Time: 12:07 AM Saba Porras MD 06/08/18 0014 CBC AND DIFFERENTIAL Collected: 06/06/2018 Status: F Source: [place] 5:51 PM [facility] TYPE CODE TESTS RESULT OUT OF REFERENCE UNITS RANGE LAB WBC 3.70-11.00 k/uL WBC 6.17 LAB RBC 3.90-5.20 m/uL Low RBC 3.41 LAB HGB 11.5-15.5 g/dL Low Hemoglobin 9.5 LAB HCT 36.0-46.0 % Low Hematocrit 29.7 LAB MCV 80.0-100.0 fL MCV 87.1 LAB MCH 26.0-34.0 pG MCH 27.9 LAB MCHC 30.5-36.0 g/dL MCHC 32.0 LAB RDWCV 11.5-15.0 % RDW-CV 14.8 LAB PLTCT 150-400 k/uL Platelet High Count 452 LAB MPV 9.0-12.7 fL MPV 9.1 LAB ANEUT % Neut% 65.6 LAB AANEUT 1.45-7.50 k/uL Abs Neut 4.05 LAB ALYMP % Lymph% 20.4 LAB AALYMP 1.00-4.00 k/uL Abs Lymph 1.26 LAB AMONO % [place]% 8.3 LAB AAMONO <0.87 k/uL Abs [place] 0.51 LAB AEOS % Eosin% 5.2 LAB AAEOS <0.46 k/uL Abs Eosin 0.32 LAB ABASO % Baso% 0.5 LAB AABASO <0.11 k/uL Abs Baso 0.03 LAB AUNRBC 0 /100 WBC NRBCs 0.0 LAB ABNRBC <0.01 k/uL Absolute nRBC <0.01 LAB DTYP DTYPE Auto Diff Performed By: #### CBCDIF, CMP #### [facility] [address] [place], [place] [address] COMP METABOLIC PANEL Collected: 06/06/2018 Status: F Source: [place] 5:51 PM [facility] REPOSITORY TYPE CODE TESTS RESULT OUT OF REFERENCE UNITS RANGE LAB TP 6.3-8.0 g/dL Low Protein, Total 6.0 LAB ALB 3.9-4.9 g/dL Low Albumin 3.4 LAB CA 8.5-10.2 mg/dL Calcium, Total 8.6 LAB TBIL 0.2-1.3 mg/dL Bilirubin, Total 0.3 LAB ALKP 34-123 U/L Alkaline Phosphatase 81 LAB AST 13-35 U/L AST 14 LAB GLU 74-99 mg/dL Glucose High 122 Result Comment: The [place] [employer] (ADA) provides guidance for cutoff values for fasting glucose and random glucose. The ADA defines fasting as no caloric intake for at least 8 hours. Fas ting plasma glucose results between 100 to 125 mg/dL indicate increased risk for diabetes (prediabetes). Fasting plasma glucose results greater than or equal to 126 mg/dL meet the criteria for diagnosis of diabetes. In the absence of unequivocal hyperglycemia, results should be confirmed by repeat testing. In a patient with classic symptoms of hyperglycemia or hyperglycemic crisis, random plasma glucose results greater than or equal to 200 mg/dL meet the criteria for diagnosis of diabetes. Reference: Standards of Medical Care in Diabetes 2016, [place] [employer]. Diabetes Care. 2016.39(Suppl 1). LAB BUN 7-21 mg/dL BUN 8 LAB CRET 0.58-0.96 mg/dL Creatinine 0.65 LAB NA 136-144 mmol/L Sodium 142 LAB K 3.7-5.1 mmol/L Potassium Low 3.4 LAB CL 97-105 mmol/L Chloride 105 LAB CO2 22-30 mmol/L CO2 25 LAB AGAP 9-18 mmol/L Anion Gap 12 LAB ALT 7-38 U/L ALT 12 LAB GFRAA eGFR- Amer. >60 LAB GFRNAA . eGFR-All Other Races >60 Result Comment: eGFR (Estimated GFR) Units of measure: mL/min/1.73 meters squared eGFR is derived from the reexpressed MDRD Study equation using the following parameters: serum creatinine, age, gender and race. The creatinine assay has been calibrated to be traceable to IDMS. An eGFR <60 mL/min/1.73m2 for >3 months is consistent with chronic kidney disease. Refer to KDOQI guidelines for clinical interpretation. In patients with unstable renal function, e.g. those with acute kidney injury, the eGFR may not accurately reflect actual GFR. Performed By: #### CBCDIF, CMP #### [facility] [address] [place] [address] CONSULT Observed: 06/06/2018 Status: COMPLETED Source: [place] 5:23 PM [facility] REPOSITORY HNO ID: [id number] Author: Shantel Rosenberg Service: General Surgery Author Type: Resident Type: Consults Filed: 06/06/2018 5:32 PM Note Text: CONSULT INITIAL - SURGICAL SERVICES PATIENT NAME: Adri Goyal SERVICE DATE: 06/06/2018 ASSESSMENT AND PLAN 57 year old F hx of RYGB c/b failure to thrive s/p gastric bypass reversal 04/2013. Developed a large ventral hernia s/p primary repair with intestinal transplant team 10/2015 c/b recurrence. Underwent VHR with mesh, b/l TAR with Dr. Jones 05/21/18. Presents to ED with left sided abdomina pain and mild nausea -pain likely MSK d/t transfascial sutures -check CBC. If no leukocytosis and H/H stable, ok for discharge -script for oxycodone, Flexeril, and zofran -follow up in office on 06/16/18 at 3:[address] Jones SUBJECTIVE HISTORY OF PRESENT ILLNESS: Ms. Goyal is a 57 year old female with complex surgical hx. Hx of RYGB c/b failure to thrive s/p gastric bypass reversal 04/2013. Developed a large ventral hernia s/p primary repair with intestinal transplant team 10/2015 c/b recurrence. Underwent VHR with mesh, b/l TAR with Dr. Jones 05/21/18. Post-op course c/b PE--discharged on Lovenox to coumadin bridge. Presents today with left sided abdominal pain. Improved with oxycodone, but she states she is almost out of pain pills. The pain is at site of left transfascial suture and is cramping, nonradiating. Also reports some nausea that started on car ride here. No emesis. No chills or objective fevers. States had Tmax 99F at home. No wound issues. No erythema or drainage. Denies SOB. No chest pain. PAST MEDICAL HISTORY: has a past medical history of Abdominal pain, generalized; Bacterial overgrowth syndrome; Bowel disease; Depressive disorder, not elsewhere classified; Diabetes mellitus (HCC) (); Fracture; GERD (gastroesophageal reflux disease); HTN (hypertension); Incisional hernia without mention of obstruction or gangrene; Irritable bowel syndrome; Necrotizing fasciitis ([facility]); Obesity, unspecified (05-23-10); Open wound of abdominal wall, anterior, complicated (1); PMH - PAST MEDICAL HISTORY OF; PMH - PAST MEDICAL HISTORY OF (09/2009); and RSD lower limb. She also has no past medical history of Asthma; Bleeding ulcer; Chronic obstructive pulmonary disease (COPD) ([facility]); Chronic renal insufficiency; Congestive heart failure (HCC); Dyslipidemia; Myocardial infarct, old; Peripheral vascular disease ([facility]); Personal history of unspecified urinary disorder; Seizures ([facility]); Stroke ([facility]); or Thyroid disorder. PAST SURGICAL HISTORY: has a past surgical history that includes past surgical history of; past surgical history of (2005); past surgical history of (2005); past surgical history of (2004); past surgical history of (2004); past surgical history of; gastric bypass, lion-en-y (04/27/11); past surgical history of; feeding tube-specify; past surgical history of (10/2015); arthros shldr dx w/wo synv bx (Right, 05/03/2017); repair compl rotator cuff avulsn,chr (Right, 05/03/2017); tonsillectomy hx (1977); hysterectomy hx (2003); and midline insertion/consult (05/25/2018). FAMILY HISTORY: family history includes Bipolar in her mother; Breast Cancer in her paternal aunt; Colon Cancer in her paternal grandfather; Diabetes in her father and paternal grandfather; Heart in her daughter and father; Hypertension in her paternal grandfather; Hypoplastic Left heart in her son. SOCIAL HISTORY: Social History Substance Use Topics - Smoking status: Never Smoker - Smokeless tobacco: Never Used - Alcohol use No MEDICATIONS: (Not in a hospital admission) Current hospital medications: cyclobenzaprine 5 mg tab(s) (FLEXERIL) 5 mg ORAL ONCE denosumab 60 mg injection (PROLIA) 60 mg SUBCUTANEOUS Q 6 MONTH NaCl 0.9% 1,000 mL iv bolus 1,000 mL INTRAVENOUS ONCE ALLERGIES: ALLERGIES Allergen Reactions - Bactrim [Sulfametho* Other: See Comments Cardiac issues, CIPRO IV only - Cipro I.V. [Ciprofl* Hives, Shortness of Breath - Dimetapp [Pseudoeph* Vomiting violently ill when overdosed on it as child - Erythromycin hives ok with zithromax - Keflex [Cephalexin] OK to give zosyn per 06-28-06 - Latex Rash rash, breaks out everywhere, n/v , feels weak Can still eat food that is considered for latex allergies No allergic to latex foods per patient isaak 05/07/11 - Tetracycline hives COMPLETE REVIEW OF SYSTEMS: Consitutional: no fevers/chills, no weight loss HEENT: no JUNIOR, no vision changes CV: no chest pain, no palpitations Pulm: no dyspnea, no cough GI: see HPI : no hematuria, no dysuria MSK: no back pain, no joint pain Skin: no rashes/lesions Neuro: no dizziness/syncope, no numbness/tingling Heme: +hx of DVT/PE. Bridging to coumadin. OBJECTIVE PHYSICAL EXAM: BP 158/84 Pulse (!) 104 Temp 36.9 ?C (98.4 ?F) (Oral) Resp 18 Ht 177.8 cm (5' 10) Wt 99.8 kg (220 lb) SpO2 100% BMI 31.57 kg/m? Body mass index is 31.57 kg/m?. General: no acute distress, alert, oriented CV: RRR, wwp Pulm: nonlabored on RA, symmetrical rise Abdomen: soft, non-distended, tender on left side of abdomen near transfascial suture site. Incision intact with sutures in place. No cellulitis or drainage. 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 Pt presents to ED with concerns regarding recent hernia repair. Serous drainage seen in JUVENTINO drain LUQ, drain insertion site free from erythema or drainage. Surgical incision clean and dry, no drainage noted. Sutures and rona in place, no drainage seen from closure sites. Pt denies vomiting. Reports Tmax of 100F today, took Tylenol at 1330. PROGRESS Observed: 06/03/2018 Status: COMPLETED Source: [place] 1:36 PM [facility] REPOSITORY HNO ID: [id number] Author: Ibrahima Sarkar Service: (none) Author Type: Nurse Practitioner Type: Progress Notes Filed: 06/03/2018 3:10 PM Note Text: CC/HPI In follow-up of hospitalization, Adri Goyal is a 57 year old female with the chief complaint s/p bilateral myofasical flap with mesh repair on 05/21/[address] Jones at [facility]. Patient did require overnight intubation and ICU admission. She was transferred to [facility] and experienced chest pain, tachycardia and increased oxygen needs. CT revealed PE. Patient was started on Lovenox and Coumadin bridging. Discharged home with on 05/31/18. Today patient presents with complaints of feeling tired and mildly SOB. She denies any fever, chills, chest pain, or wheezing. Notes phlegm producing cough. Using incentive spirometry at home. Also complains of continued generalized edema, notes it has improved. Weight down ~6lbs since hospital admission. Alternating Tylenol and oxycodone for pain relief. Sutures in place with x1 JUVENTINO drain. Wearing abdominal binder. Appetite is down, but is tolerating small meals. Drinking adequate. Bowels are moving as before surgery. Notes some mild nausea, no vomiting. I have reviewed the patient?s last hospital course including diagnostic testing performed during this hospitalization, their discharge medications, and my assessment and plan with the patient and any family members present at today?s visit. REVIEW OF SYSTEMS GENERAL: Fatigue, Negative for significant weight loss, fever RESPIRATORY: Negative for hemoptysis, wheezing, Positive See HPI CARDIOVASCULAR: Negative for chest pain, hypertension, or palpitations See HPI GI: See HPI : Negative for dysuria and frequency, Positive for incontinence chronic wears depends HEMATOLOGY/LYMPHOLOGY: Negative for prolonged bleeding, bruising easily or swollen nodes PAST MEDICAL HISTORY: Reviewed and updated ALLERGIES: Reviewed and updated MEDICATIONS: Reviewed and updated SOCIAL HISTORY: Reviewed and updated FAMILY HISTORY: Reviewed and updated All other systems reviewed and negative, other than HPI. PHYSICAL EXAMINATION BP 124/78 Pulse 101 Temp (Src) 97.2 (Temporal Artery) Resp 16 Wt 234 lb (106.1kg) SpO2 98% General appearance: well appearing, alert, in no acute distress and well-hydrated, well nourished, motor and sensory appear to be normal Lungs: clear to auscultation no wheezing or rhonchi Heart: Tachycardic RR without murmur, gallop, or rubs. No ectopy Abdomen: Bowel sounds active. Surgically tender. Abdominal binder in place. Positive findings: Drains: Socrates-Harkins - Drainage: serosanguinous left abdomen- large vertical incision extending the length of abdomen with sutures in place, well approximated. Minimal serous drainage from distal aspect of incision. Mild erythema to distal edges of incision without evidence of infection. Extremities: Pulses: 2+, Edema: Generalized non-pitting edema to all extremities 1. I have reviewed the patient record including associated test results during the last hospitalization Yes 2. I have reviewed Lab test Yes 3. I have reviewed Radiology test Yes 4. I reviewed assessment/plan with the patient/family member Yes ASSESSMENT/PLAN: 1. Hospital discharge follow-up - ICD9: V67.59, ICD10: Z09 (primary diagnosis) - Progressing as expected - Requires coumadin therapy r/t post-op PE, repeat INR scheduled in 1 week - Reviewed dietary restrictions and safety precautions with anticoagulants, patient verbalizes understanding - Follow up with surgery and vascular as planned - Routine follow up in 3 months 2. S/P hernia surgery - ICD9: V45.89, ICD10: Z98.890, Z87.19 - Post op follow ups as scheduled - SHOWER CHAIR - CBC 3. Other acute pulmonary embolism without acute cor pulmonale (HCC) - ICD9: 415.19, ICD10: I26.99 - Lovenox with coumadin bridging. INR subtherapeutic yesterday 1.4. Coumadin dosing adjusted accordingly with repeat INR Saturday, 06/09 - Continue incentive spirometry and compression stockings - Discussed red flag s/s and when to seek immediate medical attention - Follow up in 3 months 4. Generalized edema - ICD9: 782.3, ICD10: R60.1 - Discussed post operative etiology and course of resolution - Recommend compression stockings and daily weights - Diuretic therapy used during hospitalization, continued therapy not necessary at this time - Discussed daily weight monitoring and when to notify office - Follow up in 3 months, sooner for new or worsening symptoms - Labs as ordered 5. Postoperative anemia - ICD9: 285.9, ICD10: D64.9 - CBC Ibrahima Sarkar APRN.KIRT June 03, 2018 1:36 PM CNOV Observed: 06/03/2018 Status: COMPLETED Source: [place] 1:20 PM [facility] REPOSITORY Office Visit (INTMWS) ADRI GOYAL ([id number]) 1960 F TPN Date Time Provider Department 06/03/18 1:20 PM IBRAHIMA SARKAR ([facility]) INTMWS During your visit today, we recorded the following information about you: Temperature Pulse Respiration Blood pressure 97.2 degrees 101/minute 16/minute 124/78 Weight 106.1 kg Ibrahima Sarkar APRN.CNP 06/03/2018 3:10 PM Signed CC/HPI In follow-up of hospitalization, Adri Goyal is a 57 year old female with the chief complaint s/p bilateral myofasical flap with mesh repair on 05/21/[address] Jones at [facility]. Patient did require overnight intubation and ICU admission. She was transferred to [facility] and experienced chest pain, tachycardia and increased oxygen needs. CT revealed PE. Patient was started on Lovenox and Coumadin bridging. Discharged home with on 05/31/18. Today patient presents with complaints of feeling tired and mildly SOB. She denies any fever, chills, chest pain, or wheezing. Notes phlegm producing cough. Using incentive spirometry at home. Also complains of continued generalized edema, notes it has improved. Weight down ~6lbs since hospital admission. Alternating Tylenol and oxycodone for pain relief. Sutures in place with x1 JUVENTINO drain. Wearing abdominal binder. Appetite is down, but is tolerating small meals. Drinking adequate. Bowels are moving as before surgery. Notes some mild nausea, no vomiting. I have reviewed the patient?s last hospital course including diagnostic testing performed during this hospitalization, their discharge medications, and my assessment and plan with the patient and any family members present at today?s visit. REVIEW OF SYSTEMS GENERAL: Fatigue, Negative for significant weight loss, fever RESPIRATORY: Negative for hemoptysis, wheezing, Positive See HPI CARDIOVASCULAR: Negative for chest pain, hypertension, or palpitations See HPI GI: See HPI : Negative for dysuria and frequency, Positive for incontinence chronic wears depends HEMATOLOGY/LYMPHOLOGY: Negative for prolonged bleeding, bruising easily or swollen nodes PAST MEDICAL HISTORY: Reviewed and updated ALLERGIES: Reviewed and updated MEDICATIONS: Reviewed and updated SOCIAL HISTORY: Reviewed and updated FAMILY HISTORY: Reviewed and updated All other systems reviewed and negative, other than HPI. PHYSICAL EXAMINATION BP 124/78 Pulse 101 Temp (Src) 97.2 (Temporal Artery) Resp 16 Wt 234 lb (106.1kg) SpO2 98% General appearance: well appearing, alert, in no acute distress and well-hydrated, well nourished, motor and sensory appear to be normal Lungs: clear to auscultation no wheezing or rhonchi Heart: Tachycardic RR without murmur, gallop, or rubs. No ectopy Abdomen: Bowel sounds active. Surgically tender. Abdominal binder in place. Positive findings: Drains: Socrates-Hakrins - Drainage: serosanguinous left abdomen- large vertical incision extending the length of abdomen with sutures in place, well approximated. Minimal serous drainage from distal aspect of incision. Mild erythema to distal edges of incision without evidence of infection. Extremities: Pulses: 2+, Edema: Generalized non-pitting edema to all extremities 1. I have reviewed the patient record including associated test results during the last hospitalization Yes 2. I have reviewed Lab test Yes 3. I have reviewed Radiology test Yes 4. I reviewed assessment/plan with the patient/family member Yes ASSESSMENT/PLAN: 1. Hospital discharge follow-up - ICD9: V67.59, ICD10: Z09 (primary diagnosis) - Progressing as expected - Requires coumadin therapy r/t post-op PE, repeat INR scheduled in 1 week - Reviewed dietary restrictions and safety precautions with anticoagulants, patient verbalizes understanding - Follow up with surgery and vascular as planned - Routine follow up in 3 months 2. S/P hernia surgery - ICD9: V45.89, ICD10: Z98.890, Z87.19 - Post op follow ups as scheduled - SHOWER CHAIR - CBC 3. Other acute pulmonary embolism without acute cor pulmonale (HCC) - ICD9: 415.19, ICD10: I26.99 - Lovenox with coumadin bridging. INR subtherapeutic yesterday 1.4. Coumadin dosing adjusted accordingly with repeat INR Saturday, 06/09 - Continue incentive spirometry and compression stockings - Discussed red flag s/s and when to seek immediate medical attention - Follow up in 3 months 4. Generalized edema - ICD9: 782.3, ICD10: R60.1 - Discussed post operative etiology and course of resolution - Recommend compression stockings and daily weights - Diuretic therapy used during hospitalization, continued therapy not necessary at this time - Discussed daily weight monitoring and when to notify office - Follow up in 3 months, sooner for new or worsening symptoms - Labs as ordered 5. Postoperative anemia - ICD9: 285.9, ICD10: D64.9 - CBC Ibrahima Sarkar APRN.WATER ATTENDANT June 03, 2018 1:36 PM Ibrahima Sarkar APRN.WATER ATTENDANT 06/03/2018 2:18 PM Signed Continue working on your breathing machines. Weigh yourself daily at the same time. Please notify office if you have a weight gain of more than 5 lbs in 24 hours, may need to consider short term water pill. Compression stockings during the day. Elevate legs as much as possible while resting. Should be voiding around 3 times a day. Make sure that you are eating small regular meals/snacks at least 3x a day. Referring Provider: SELF [[id number]] Allergies As of Date: 06/03/2018 Noted Allergy Reaction BACTRIM (SULFAMETHOXAZOLE) 08/13/2011 14 - Other: See Comments Comments: Cardiac issues, CIPRO IV only CIPRO I.V. (CIPROFLOXACIN) 06/28/2006 4 - Hives 12 - Shortness of Breath DIMETAPP (PSEUDOEPHEDRINE-DM) 12/04/2005 11 - Vomiting Comments: violently ill when overdosed on it as child ERYTHROMYCIN 11/29/2005 Comments: hives ok with zithromax KEFLEX (CEPHALEXIN) 11/29/2005 Comments: OK to give zosyn per MD 1--07 LATEX 11/29/2005 2 - Rash Comments: rash, breaks out everywhere, n/v , feels weak Can still eat food that is considered for latex allergies No allergic to latex foods per patient isaak 05/07/11 TETRACYCLINE 02/05/2006 Comments: hives Date Reviewed: 06/03/2018 Reviewed by: Ana Luisa Talley Ma - Fully Assessed Reason for Visit: Recheck [92] Cmt: [facility] follow up, hernia repair and developed PE, patient states trouble breathing Primary Visit Diagnosis:Hospital discharge follow-up [Z09] Other Visit Diagnoses:S/P hernia surgery [Z98.890, Z87.19] Other acute pulmonary embolism without acute cor pulmonale (HCC) [I26.99] Generalized edema [R60.1] Postoperative anemia [D64.9] Order(s):SHOWER CHAIR [3117190] Order #: [id number] Compression Knee HighsKNEE HIGH COMPRESSION STOCKINGS 30-40 MM. DX: EDEMADisp: 1 PackageRfl: 0 Diaper,Brief, Adult,Disposable (PREVAIL ADJUST UNDERWEAR JETT) misc1 Each as needed. Dx: N36.0, K58.9Disp: 250 EachRfl: 11 CBC [SQCBC] Order #: [id number] FUTURE BASIC METABOLIC PNL [SQBMP] Order #: [id number] FUTURE Prescriptions as of 06/03/2018 Sig: AMLODIPINE 5 MG TABLET Take 2 tablets by mouth every* ASPIRIN 81 MG TABLET,DELAYED * Take 1 tablet by mouth every * BLOOD SUGAR DIAGNOSTIC STRIPS TEST BLOOD SUGAR 6 TO 8 TIMES* BLOOD SUGAR DIAGNOSTIC, DISC * 1 Each as directed. CHECK BLO* BLOOD-GLUCOSE METER KIT As directed CHOLECALCIFEROL (VITAMIN D3) * Take 1 capsule by mouth once * CLONAZEPAM 1 MG TABLET Take 1 tablet by mouth daily * COMPOUNDED PRESCRIPTION KNEE HIGH COMPRESSION STOCKIN* DIAPER,BRIEF,ADULT,DISPOSABLE 1 Each as needed. Dx: N36.0,* DULOXETINE 60 MG CAPSULE,JAG* Take 1 capsule by mouth daily* ENOXAPARIN SODIUM 120 MG/0.8 * Inject 0.7 mL subcutaneously * ESTRADIOL 0.01% (0.1 MG/GRAM)* 1/2 inch of cream to lower va* FESOTERODINE ER 8 MG TABLET,E* Take 1 tablet by mouth once d* GABAPENTIN 100 MG CAPSULE 300 mg daily at bedtime INSULIN ASPART U-100 100 UNI* 15 units before meals + 2 u p* INSULIN GLARGINE (U-100) 100 * Inject 10 Units subcutaneousl* LANCETS Use as instructed to test blo* LANCETS REGULAR MISC 1 Each as directed. Use 6 x d* LOSARTAN 50 MG TABLET Take 1 tablet by mouth every * MELOXICAM 15 MG TABLET Take 1 tablet by mouth every * METOPROLOL SUCCINATE ER 25 MG* Take 1 tablet by mouth every * MULTIVITAMIN WITH CALCIUM AND* Take 1 tablet by mouth twice * ONDANSETRON HCL 4 MG TABLET Take 1 tablet by mouth every * OXYCODONE 5 MG TABLET Take 1-2 tablets by mouth january* PANTOPRAZOLE 40 MG TABLET,DEL* Take 1 tablet by mouth twice * PEN NEEDLE, DIABETIC 33 GAUGE* 1 Each as directed. 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 Essential Hypertension, Benign [I10] INVALID FOR* More... Hyperpotassemia [E87.5] INVALID FOR*04/15/2017 Abdominal pain, left lower quadrant [R10.32] INVALID FOR*04/15/2017 Abdominal pain, right lower quadrant [R10.31] INVALID FOR*04/15/2017 Abdominal Pain, Generalized [R10.84] INVALID FOR* HTN (hypertension) [I10] 04/15/2017 More... GERD (Gastroesophageal Reflux Disease) [K21.9] More... Irritable Bowel Syndrome [K58.9] RSD lower limb [G90.529] 04/15/2017 Open wound of abdominal wall, anterior, complic* 04/15/2017 Depressive disorder, not elsewhere classified [* More... Morbid obesity (HCC) [E66.01] INVALID FOR*12/25/2016 Dietary surveillance and counseling [Z71.3] INVALID FOR*04/15/2017 Gastric bypass status for obesity [Z98.84] INVALID FOR*04/15/2017 More... Nausea AND vomiting [R11.2] INVALID FOR*04/15/2017 Other and unspecified postsurgical nonabsorptio*INVALID FOR*04/15/2017 Osteoporosis [M81.0] INVALID FOR*08/20/2013 On total parenteral nutrition (TPN) [Z78.9] INVALID FOR*04/15/2017 Malabsorption [K90.9] INVALID FOR* Fracture [T14.8XXA] INVALID FOR*04/15/2017 Hernia of abdominal wall [K43.9] INVALID FOR* H/O hyperglycemia [Z86.39] INVALID FOR*04/15/2017 Diarrhea [R19.7] INVALID FOR* Insomnia [G47.00] INVALID FOR* More... Diabetic neuropathy, painful (HCC) [E11.40] INVALID FOR* More... DM (diabetes mellitus) (HCC) [E11.9] INVALID FOR* More... Unspecified intestinal malabsorption [K90.9] INVALID FOR* More... Osteoporosis [M81.0] INVALID FOR* More... Vitamin D deficiency [E55.9] INVALID FOR* More... Post-operative state [Z98.890] INVALID FOR*04/15/2017 Obesity (BMI 30.0-34.9) [E66.9] INVALID FOR* More... Chronic pain in right shoulder [M25.511, G89.29]INVALID FOR* More... Impingement syndrome of right shoulder [M75.41] INVALID FOR* More... Migraines [G43.909] INVALID FOR* DDD (degenerative disc disease), lumbar [M51.36]INVALID FOR* Acute pain of right shoulder [M25.511] INVALID FOR* Ventral hernia without obstruction or gangrene *INVALID FOR* More... Mixed stress and urge urinary incontinence [N39*INVALID FOR* Incisional hernia [K43.2] INVALID FOR* Ventral hernia [K43.9] INVALID FOR* Acute pulmonary embolism (HCC) [I26.99] INVALID FOR* Other instructions from your clinician: Continue working on your breathing machines. Weigh yourself daily at the same time. Please notify office if you have a weight gain of more than 5 lbs in 24 hours, may need to consider short term water pill. Compression stockings during the day. Elevate legs as much as possible while resting. Should be voiding around 3 times a day. Make sure that you are eating small regular meals/snacks at least 3x a day. Prescriptions ordered this encounter Disp Refills Start End COMPOUNDED PRESCRIPTION 1 Pa* 0 06/03/2018 Class: Print RX Sig: KNEE HIGH COMPRESSION STOCKINGS 30-40 MM. DX: EDEMA DIAPER,BRIEF,ADULT,DISPOSABLE 250 * 11 06/03/2018 Class: Print RX Route: Misc Si Each as needed. Dx: N36.0, K58.9 Medications Discontinued During This Encounter Diaper,Brief, Adult,Disposable (PREV* 250 * 11 06/26/2017 06/03/2018 Class: Print RX Route: Miscell. (Med.Supl.;Non-Drugs) Si Each as needed. Dx: N36.0, K58.9 Disc: Reason for discontinue is not on file. Disposition: Return in about 3 months (around 2018). Follow-up and Disposition History Recorded Encounter Status:Closed by IBRAHIMA SARKAR CNP on 06/03/18 PROGRESS Observed: 06/02/2018 Status: COMPLETED Source: [place] 5:10 PM [facility] REPOSITORY HNO ID: [id number] Author: Ibrahima Sarkar Service: (none) Author Type: Nurse Practitioner Type: Progress Notes Filed: 06/03/2018 8:57 AM Note Text: New order filed for lab work on 06/09/18. Ibrahima Sarkar APRN.CNP PROGRESS Observed: 06/02/2018 Status: COMPLETED Source: [place] 5:06 PM [facility] HNO ID: [id number] Author: Ana Luisa Talley Ma Service: (none) Author Type: (none) Type: Progress Notes Filed: 06/03/2018 8:57 AM Note Text: Patient notified that both are to be taken and to come to the lab on Saturday. PROGRESS Observed: 06/02/2018 Status: COMPLETED Source: [place] 4:57 PM [facility] REPOSITORY HNO ID: [id number] Author: Ana Luisa Talley Ma Service: (none) Author Type: (none) Type: Progress Notes Filed: 06/03/2018 8:57 AM Note Text: Patient notified and wants to verify that she is to take both lovenox and Coumadin as written below? Also, patient is scheduled for Saturday for INR, coumadin clinic is closed on Saturday, would have to go to lab. Should patient keep Saturday appointment or go to Lab? Please advise PROGRESS Observed: 06/02/2018 Status: COMPLETED Source: [place] 4:51 PM [facility] REPOSITORY HNO ID: [id number] Author: Ibrahima Sarkar Service: (none) Author Type: Nurse Practitioner Type: Progress Notes Filed: 06/03/2018 8:57 AM Note Text: Please have patient take 1.5 tabs or 7.5mg on Mondays including today and 5 mg all other days and repeat INR in 1 week. Ibrahima Sarkar APRN.CNP PROGRESS Observed: 06/02/2018 Status: COMPLETED Source: [place] 4:16 PM [facility] RE[facility]IT[facility] HNO ID: [id number] Author: Francoise Zhao RN Service: (none) Author Type: (none) Type: Progress Notes Filed: 06/02/2018 4:18 PM Note Text: patient had inr completed at [facility] patients inr is 1.4 (patient inr range is 2.0-3.0) patient is currently taking lovenox once daily and 5mg coumadin daily patients last dose change unknown as patient is a new start to medication, patient was discharged on this dosing patient has had no changes in medication and no missed doses and no change in diet Advised patient that they would be contacted regarding medication dose and when to follow up after information is reviewed by provider. After provider review please contact the patient with information and schedule follow up appointment with coumadin clinic. FYI - patient has been scheduled for an inr follow up for this Saturday (06/06/18) CNDS Observed: 05/31/2018 Status: COMPLETED Source: [place] 5:25 PM [facility] RE[facility]IT[facility] HNO ID: [id number] Author: Mehdi Clayton Service: General Surgery Author Type: Resident Type: Discharge Summaries Filed: 05/31/2018 7:54 PM Note Text: DISCHARGE SUMMARY PATIENT NAME: Adri Goyal ADMISSION DATE: 05/21/2018 DISCHARGE DATE: 05/31/2018 ATTENDING PHYSICIAN: No att. providers found Code Status: Not on file Highest Readmission Risk Score: 18 The 30 day readmissions risk score is derived from an internally validated risk model which evaluates patient level characteristics, utilization history, medication orders and lab results up until the day of discharge. Patients with a score of 40 or above are considered highest risk for readmission. Specific patient level drivers will be listed at the bottom of the summary. REASON FOR HOSPITALIZATION: Ventral hernia repair OPERATIONS DURING HOSPITALIZATION: Bilateral TAR and mesh placement PROCEDURES DURING HOSPITALIZATION: Midline placement HOSPITAL COURSE: 57 y/o female with history of ventral hernia admitted on 05/21 for a bilateral TAR with mesh placement. Patient was kept intubated and was transferred to SICU that day, and remained intubated on POD1 and was later extubated later that day and started on a HAND MOLDER AND CASTER. She was transferred to [facility] on POD2 and was started on sips of clears, and was advanced to clear liquid diet on POD3. On POD5 patient had return of BF and was advanced to GISoft and later AMET was called for chest pain and increased O2, CT PE positive for PE and vascular medicine was consulted. She was started on therapeutic Loevnox and bridging to coumadin was initiated. HAND MOLDER AND CASTER was stopped on POD6. Drains were progressively removed and NC was wean off. Patient was discharged with one subcutaneous drain left in, tolerating a diet, pain under control and with Lovenox and Coumadin. Transitions of Care Critical Issues: IMAGING FOLLOW-UP: None LABS AND PROCEDURES PENDING AT DISCHARGE: No pending results. CONSULTING TEAMS DURING HOSPITALIZATION: Vascular medicine PATIENT CONDITION AT DISCHARGE: Stable DISCHARGE DISPOSITION: Home/Self Care Discharge Physical Exam: VITAL SIGNS: BP 122/58 Pulse 93 Temp 36.4 ?C (97.5 ?F) (Oral) Resp 16 Ht 177.8 cm (5' 10) Wt 113 kg (249 lb 1.9 oz) SpO2 93% BMI 35.74 kg/m? GENERAL: Alert, no distress, cooperative SKIN: Skin color, texture, turgor normal. No rashes or lesions. LUNGS: Lungs clear to auscultation, Good diaphragmatic excursion CARDIAC: Normal S1 and S2; no rubs, murmurs, or gallops ABDOMEN: Abdomen soft, non-tender, BS normal, No masses or organomegaly WOUND: Clean, dry and intact DIET: Resume pre-hospital diet ACTIVITY: Lifting is restricted to: 10-15 lbs for 6 weeks WOUND/SURGICAL SITE CARE: Will need to have stitches removed in clinic ALLERGIES Allergen Reactions - Bactrim [Sulfametho* Other: See Comments Cardiac issues, CIPRO IV only - Cipro I.V. [Ciprofl* Hives, Shortness of Breath - Dimetapp [Pseudoeph* Vomiting violently ill when overdosed on it as child - Erythromycin hives ok with zithromax - Keflex [Cephalexin] OK to give zosyn per MD 06-28-06 - Latex Rash rash, breaks out everywhere, n/v , feels weak Can still eat food that is considered for latex allergies No allergic to latex foods per patient isaak 05/07/11 - Tetracycline hives DISCHARGE MEDICATION: Discharge Medication List as of 05/31/2018 4:05 PM START taking these medications enoxaparin (LOVENOX) 120 mg/0.8 mL injection Inject 0.7 mL subcutaneously every 12 hours for 10 days. Print RX, Disp-20 Syringe, R-1 warfarin (COUMADIN) 5 mg tablet Take 1 tablet by mouth once daily. Print RX, Disp-60 tablet, R-2, Long-term CONTINUE these medications which have CHANGED ondansetron (ZOFRAN) 4 mg tablet Take 1 tablet by mouth every 8 hours as needed (for nausea.). Print RX, Disp-30 tablet, R-0 oxyCODONE IR (ROXICODONE) 5 mg immediate release tablet Take 1-2 tablets by mouth every 6 hours as needed for up to 7 days. Earliest Fill Date: 05/31/18 Print RX, Disp-28 tablet, R-0 Dx: 1. Postoperative pain pantoprazole DR (PROTONIX) 40 mg tablet Take 1 tablet by mouth twice daily before meals (0600/1600). Print RX, Disp-60 tablet, R-1, Long-term CONTINUE these medications which have NOT CHANGED amLODIPine (NORVASC) 5 mg tablet Take 2 tablets by mouth every evening. Med Update, Long-term aspirin, enteric coated (ASPIRIN, ENTERIC COATED) 81 mg EC tablet Take 1 tablet by mouth every evening. Med Update, Long-term blood sugar diagnostic (ONETOUCH ULTRA TEST) test strip TEST BLOOD SUGAR 6 TO 8 TIMES DAILY Dx: E11.9 Insulin:yes Normal, Disp-800 Strip, R-3 Please consider 90 day supplies to promote better adherence Dx: 1. 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 CHECK BLOOD GLUCOSE EIGHT TIMES PER DAY/ Historical Med Blood-Glucose Meter (ONETOUCH ULTRA2) monitoring kit As directed Normal, Disp-1 Each, R-0 Dx: 1. 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 Take with your largest meal of the day Normal, Disp-12 capsule, R-4 Dx: 1. Vitamin D deficiency clonazePAM (KLONOPIN) 1 mg tablet Take 1 tablet by mouth daily at bedtime for 30 days. Print RX, Disp-30 tablet, R-3, Long-term Dx: 1. JONATHAN (generalized anxiety disorder) Diaper,Brief, Adult,Disposable (PREVAIL ADJUST UNDERWEAR SHABANA LARA) misc 1 Each as needed. Dx: N36.0, K58.9 Print RX, Disp-250 Each, R-11 Dx: 1. Urethral fistula DULoxetine (CYMBALTA) 60 mg capsule Take 1 capsule by mouth daily at bedtime. Normal, Disp-90 capsule, R-3, Long-term estradiol (ESTRACE) 0.01 % (0.1 mg/gram) vaginal cream 1/2 inch of cream to lower vagina qhs twice weekly Normal, Disp-1 Tube, R-1, Long-term Dx: 1. Urinary frequency 2. Postmenopausal atrophic vaginitis 3. Dyspareunia, female Fesoterodine (TOVIAZ) 8 mg Tb24 Take 1 tablet by mouth once daily. Print RX, Disp-30 tablet, R-11, Long-term gabapentin (NEURONTIN) 100 mg capsule 300 mg daily at bedtime Normal, Disp-90 capsule, R-11, Long-term Please be advised that this is a resubmission of a previous prescription. insulin aspart U-100 (NOVOLOG) 100 unit/mL inpn 15 units before meals + 2 u per 50 >200 TDD 75 units Med Update, Disp-10 Pen, R-11, Long-term Dx: 1. 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 20 units sq twice daily Med Update, Disp-5 Pen, R-5, Long-term Dx: 1. 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 Lancets lancets Use as instructed to test blood sugars 8 times daily E11.9 Normal, Disp-800 Each, R-3 Dx: 1. 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 LANCETS REGULAR MISC 1 Each as directed. Use 6 x daily Historical Med losartan (COZAAR) 50 mg tablet Take 1 tablet by mouth every evening. Med Update, Long-term Dx: 1. Essential hypertension, benign meloxicam (MOBIC) 15 mg tablet Take 1 tablet by mouth every evening. Med Update metoprolol succinate ER (TOPROL XL) 25 mg 24 hr tablet Take 1 tablet by mouth every evening. Normal, Disp-30 tablet, R-11, Long-term Multivits,CalciumAND Minerals-FA 267 mcg tab Take 1 tablet by mouth twice daily. Centrum Adult Chewables MVI with minerals is preferred; must be chewable Normal, Disp-60 tablet, R-99 Dx: 1. Gastric bypass status for obesity 2. Ventral hernia, recurrence not specified pen needle, diabetic 33 gauge x 5/32 ndle 1 Each as directed. Use with injections 4x daily E11.9 Normal, Disp-400 Each, R-3 Dx: 1. 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 Normal, Disp-60 tablet, R-6 QUEtiapine (SEROQUEL) 100 mg tablet Take 1 tablet by mouth every evening. Med Update, Long-term zolpidem (AMBIEN) 5 mg tablet Take 1 tablet by mouth at bedtime as needed (for insomnia.) for up to 180 days. Med Update, Long-term Dx: 1. Insomnia, unspecified type !! - Potential duplicate medications found. Please discuss with provider. STOP taking these medications omeprazole (PRILOSEC) 20 mg capsule Comments: Reason for Stopping: FUTURE APPOINTMENTS: Future Appointments Date Time Provider Department Center 06/02/2018 3:45 PM [facility] 06/03/2018 1:20 PM Ibra[facility]ima Beyer) [facility] 07/02/2018 12:45 PM Melina Agarwal) JESSICA Magallon J/S Bld 07/29/2018 2:30 PM NURSE [facility] JOSE GLOUCESTER JAMARI The patient's risk for 30-day readmission is determined using the following contributing factors: Pt variables contributing to increased readmission risk: 9 Most Recent BUN Result 8.2 First Resulted Calcium During Admission 1 Insurance - Medicare 1 Discharge Disposition - Home 1 Active Anticoagulant TIME OF CARE: Discharge Management: I personally spent greater than 30 minutes involved in the discharge management of this patient. SIGNATURE: Mehdi Clayton MD PAGER/CONTACT #: DATE: May 31, 2018 TIME: 7:41 PM PLAN OF CARE Observed: 05/31/2018 Status: COMPLETED Source: [place] 3:33 PM [facility] REPOSITORY O ID: [id number] Author: Erin Casanova (Hydrochloric Manufacturing Supervisor) Service: (none) Author Type: (none) Type: Plan of Care Filed: 05/31/2018 3:34 PM Note Text: PHARMACY BEDSIDE DELIVERY SERVICE Patient Name: Adri Goyal The marked outpatient medications were Filled at: [facility] and delivered to the patient's bedside to patient Medication List START taking these medications enoxaparin 120 mg/0.8 mL injection X Delivered Commonly known as: LOVENOX Inject 0.7 mL subcutaneously every 12 hours for 10 days. ondansetron 4 mg tablet Commonly known as: ZOFRAN Take 1 tablet by mouth every 8 hours as needed (for nausea.). oxyCODONE IR 5 mg immediate release tablet Commonly known as: ROXICODONE Take 1-2 tablets by mouth every 6 hours as needed for up to 7 days. Earliest Fill Date: 05/31/[address] 40 mg tablet Commonly known as: PROTONIX Take 1 tablet by mouth twice daily before meals (0600/1600). warfarin 5 mg tablet X Delivered Commonly known as: COUMADIN Take 1 tablet by mouth once daily. CONTINUE taking these medications amLODIPine 5 mg tablet Commonly known as: NORVASC Take 2 tablets by mouth every evening. aspirin, enteric coated 81 mg EC tablet Commonly known as: ASPIRIN, ENTERIC COATED Take 1 tablet by mouth every evening. blood sugar diagnostic test strip Commonly known as: ONEPitchEngineUCH ULTRA TEST TEST BLOOD SUGAR 6 TO 8 TIMES DAILY Dx: E11.9 Insulin:yes Blood Sugar Diagnostic, Disc Strp Blood-Glucose Meter monitoring kit Commonly known as: ONETOUCH ULTRA2 As directed cholecalciferol (Vitamin D3) 50,000 unit Cap capsule Commonly known as: VITAMIN D3 Take 1 capsule by mouth once each week. Take with your largest meal of the day clonazePAM 1 mg tablet Commonly known as: KlonoPIN Take 1 tablet by mouth daily at bedtime for 30 days. Diaper,Brief, Adult,Disposable Misc Commonly known as: PREVAIL ADJUST UNDERWEAR SM-MD 1 Each as needed. Dx: N36.0, K58.9 DULoxetine 60 mg capsule Commonly known as: CYMBALTA Take 1 capsule by mouth daily at bedtime. estradiol 0.01 % (0.1 mg/gram) vaginal cream Commonly known as: ESTRACE 1/2 inch of cream to lower vagina qhs twice weekly Fesoterodine 8 mg Tb24 Commonly known as: TOVIAZ Take 1 tablet by mouth once daily. gabapentin 100 mg capsule Commonly known as: NEURONTIN 300 mg daily at bedtime insulin aspart U-100 100 unit/mL Inpn Commonly known as: NovoLOG 15 units before meals + 2 u per 50 >200 TDD 75 units insulin glargine 100 unit/mL (3 mL) Inpn Commonly known as: BASAGLAR KWIKPEN U-100 INSULIN Inject 10 Units subcutaneously every 12 hours. 20 units sq twice daily * Lancets lancets Use as instructed to test blood sugars 8 times daily E11.9 * LANCETS REGULAR MISC losartan 50 mg tablet Commonly known as: COZAAR Take 1 tablet by mouth every evening. meloxicam 15 mg tablet Commonly known as: MOBIC Take 1 tablet by mouth every evening. metoprolol succinate ER 25 mg 24 hr tablet Commonly known as: TOPROL XL Take 1 tablet by mouth every evening. Multivits,CalciumAND Minerals-FA 267 mcg Tab Take 1 tablet by mouth twice daily. Centrum Adult Chewables MVI with minerals is preferred; must be chewable pen needle, diabetic 33 gauge x 5/32 Ndle 1 Each as directed. Use with injections 4x daily E11.9 potassium chloride 10 mEq tablet Commonly known as: K-TAB Take 1 tablet by mouth twice daily. QUEtiapine 100 mg tablet Commonly known as: SEROquel Take 1 tablet by mouth every evening. zolpidem 5 mg tablet Commonly known as: AMBIEN Take 1 tablet by mouth at bedtime as needed (for insomnia.) for up to 180 days. * This list has 2 medication(s) that are the same as other medications prescribed for you. Read the directions carefully, and ask your doctor or other care provider to review them with you. You might also be taking other medications not listed above. If you have questions about any of your other medications, talk to the person who prescribed them or your Primary Care Provider. STOP taking these medications omeprazole 20 mg capsule Commonly known as: Yas Casanova (Zhitu) PAGER: [phone] May 31, 2018 3:33 PM CONSULT PROG Observed: 05/31/2018 Status: COMPLETED Source: [place] 9:41 AM [facility] RE[facility]IT[facility] HNO ID: [id number] Author: Michell Webster Service: Vascular Medicine Author Type: Physician Type: Consult Progress Note Filed: 05/31/2018 11:26 AM Note Text: Vascular Medicine Consult Follow-Up Note: CC/ID: Ms Adri Goyal is a 57 year-old woman with history of multiple abdominal surgeries, DM2, GERD, HTN, obesity s/p gastric bypass found to have provoked PE in the setting of?bilateral myofasical flap with mesh repair on 05/21/2018 for a large incisional hernia. Vascular Medicine was consulted for assistance with AC recommendations. S/IE: - No acute events overnight - Primary team plans on discharging today - Labs this AM: Hgb 9.9 --> 9.4, Plts 301 --> 306, INR 1.1, sCr 0.59. 05/30/18 2129 05/31/18 0325 05/31/18 0608 05/31/18 0929 BP: 147/73 150/69 144/69 128/56 Pulse: 101 106 99 104 Resp: Temp: 37.3 ?C (99.1 ?F) 37.2 ?C (99 ?F) 36.9 ?C (98.5 ?F) TempSrc: Oral Oral Oral SpO2: 96% 94% 93% Weight: Height: General: sitting in bed in NAD, conversational without dyspnea, pleasant HEENT: NCAT, anicteric sclerae Neck: supple Chest: CTAB CV: RRR, nl S1/S2, no M/R/G's ABD: +BS, soft, NT/ND, no rebound or guarding Extremities: WWP, trace LE edema 2+ DP/PT/Radial pulses bilaterally Neuro: AANDOx3 Pertinent Labs, Imaging, AND Studies: CBC, Coags, BMP, Mg, Phos Recent Labs 05/31/18 0551 05/30/18 1100 05/30/18 0606 05/29/18 0821 WBC 5.42 -- 6.85 5.84 HB 9.4* -- 9.9* 9.0* HCT 29.6* -- 31.5* 28.3* PLT 306 -- 301 291 INR 1.1 1.1 -- 1.0 NA 141 -- 141 139 K 3.7 -- 4.4 3.3* CHLOR 100 -- 99 100 CO2 24 -- 22 22 BUN 9 -- 7 7 CREAT 0.59 -- 0.60 0.53* GLUC 155* -- 174* 199* CA 8.3* -- 8.5 8.2* MG 1.8 -- 2.0 1.6* P 4.0 -- 2.7 2.0* Liver Function, Amylase, AND Lipase Impression: Ms Adri Goyal is a 57 year-old woman with history of multiple abdominal surgeries, DM2, GERD, HTN, obesity s/p gastric bypass found to have provoked PE in the setting of?bilateral myofasical flap with mesh repair on 05/21/2018 for a large incisional hernia. Vascular Medicine was consulted for assistance with AC recommendations. Recommendations: - continue therapeutic Lovenox to Coumadin bridge - continue SQ Lovenox 105mg BID (~1mg/kg BID dosing) - Day 5 of Warfarin, INR 1.1 (target 2-3): please order Warfarin 5mg this evening 05/31/18 - SQ Lovenox and Coumadin should overlap for a minimum of 5 days and then continue to be overlapped x24 hours once INR therapeutic before Lovenox may be D/C'd - continue to monitor for bleeding - continue to check daily CBC, BMP (Cr), and INR If the Ms Goyal is being discharged, please ensure she is able to obtain Lovenox and she must continue on SQ Lovenox 105mg BID and Warfarin 5mg daily until her INR is followed up on at the follow-ing outpatient appointment: - Ibrahima Sarkar NP 06/03 @ 1:20pm [facility] CC 06/02 @ 3:45pm Will require at least 3 months of therapeutic AC for a provoked PE Signed: Jose Kidd MD Vascular Medicine Fellow Pager [phone] May 31, 2018 9:41 AM [facility] STAFF PHYSICIAN NOTE OF PERSONAL INVOLVEMENT IN CARE I have reviewed the note obtained and documented by the fellow and I personally participated in the palomo components. I have discussed the case and management of the patient's care. The following comments revise or confirm relevant palomo components of the note. If to be discharged today Please give Warfarin 7.5 mg X 1 tonight and Warfarin 7.5 mg X 1 Saturday evening, INR check Saturday morning. Michell Webster MD PROGRESS Observed: 05/31/2018 Status: COMPLETED Source: [place] 9:31 AM [facility] REPOSITORY HNO ID: [id number] Author: Mehdi Clayton Service: General Surgery Author Type: Resident Type: Progress Notes Filed: 05/31/2018 9:32 AM Note Text: General Surgery Progress Note Service Date: May 31, 2018 Patient Name: Adri Goyal Assessment and Plan: Adri Goyal is a 57 year old female with history of multiple abdominal surgeries complicated by large incisional hernia now s/p bilateral TAR with mesh placement on 05/21. Remained intubated and admitted to SICU. Extubated on 05/22. Transferred to [facility] on 05/23. AM[facility] called on 05/26 for chest pain, tachycardia and increased O2 requirement: CT PE showed subacute on chronic PE, currently on Lovenox bridging to coumadin Neuro/Pain: Flexeril + PO pain meds. Continue home seroquel and cymbalta. Continue gabapentin Cardio/Resp: Continue incentive spirometry, FEN/GI: LR @ 50cc/h. Replete Lytes. Diet: GISoft. Zofran available. Protonix 40 BID, Tums PRN Renal: Strict I/Os. Urine output adequate Heme/DVT PPx: ICDs. Appreciate vascular medicine recs, Lovenox 105 BID brdging with coumadin. Drains: continue JUVENTINO in subQ, remove JP2 (on top of mesh) Wound/ID: No abx Endo: On SSI scale 3 Dispo: Possible DC today pending vascular medicine recs Mehdi Clayton MD General Surgery, PGY-1 Pager: [phone] (Gen Surg Pager) May 31, 2018 9:31 AM Subjective: No acute events overnight. Having issues with heartburn with PO intake. Passing gas, and having BM. Physical Exam: BP 144/69 Pulse 99 Temp 36.9 ?C (98.5 ?F) (Oral) Resp 18 Ht 177.8 cm (5' 10) Wt 113 kg (249 lb 1.9 oz) SpO2 93% BMI 35.74 kg/m? GENERAL/NEURO: Sedated HEENT: Normocephalic, Atraumatic CHEST: Unlabored breathing on RA ABDOMEN: Soft, mildly tender, mildly distended, Incision c/d/i, JPs yielding SS fluid EXTREMITIES: warm, well perfused Labs: CBC, Coags, BMP, Mg, Phos Recent Labs 05/31/18 0551 05/30/18 1100 05/30/18 0606 05/29/18 0821 WBC 5.42 -- 6.85 5.84 HB 9.4* -- 9.9* 9.0* HCT 29.6* -- 31.5* 28.3* PLT 306 -- 301 291 INR 1.1 1.1 -- 1.0 NA 141 -- 141 139 K 3.7 -- 4.4 3.3* CHLOR 100 -- 99 100 CO2 24 -- 22 22 BUN 9 -- 7 7 CREAT 0.59 -- 0.60 0.53* GLUC 155* -- 174* 199* CA 8.3* -- 8.5 8.2* MG 1.8 -- 2.0 1.6* P 4.0 -- 2.7 2.0* Liver Function, Amylase, AND Lipase Intake and Output: Date 05/21/18699 - 05/22/1859 05/22/18 07 - 05/23/18 0659 Shift 0856-5552 7994-9620 8984-9288 24 Hour Total 8825-0217 6563-3021 4804-0202 24 Hour Total I N T A K E IV 4050 891 4941 LR 150 707 857 OR Crystalloid intake (mL) 3900 3900 Propofol IV 184 184 Shift Total 4050 891 4941 O U T P U T Urine 450 395 845 OR Urine Output 160 160 Tube Output ( Indwelling Urinary Catheter 05/21/18 1145 Hong 16 Fr) 290 395 685 Tubes 205 220 425 Drain/Tube Output (Drain/Tube 05/21/18 1524 Socrates Harkins Left Upper Quadrant Drain #1) 40 50 90 Drain/Tube Output (Drain/Tube 05/21/18 1524 Socrates Harkins Left Lower Quadrant Abdomen Drain #2) 90 85 175 Drain/Tube Output (Drain/Tube 05/21/18 1621 Socrates Harkins Right Upper Quadrant Abdomen Drain #3) 20 15 35 Drain/Tube Output (Drain/Tube 05/21/18 1621 Socrates Harkins Right Lower Quadrant Abdomen Drain #4) 55 70 125 Blood 100 100 Estimated Blood loss 100 100 Shift Total 378 265 1946 Weight (kg) 110.7 110.7 110.7 110.7 110.7 110.7 Current Medications: Current hospital medications: acetaminophen 1,000 mg tab(s) (TYLENOL) 1,000 mg ORAL q 6 H aluminum-magnesium hydroxide-simethicone 200-200-20 mg/5 mL 30 mL (MAALOX,MYLANTA,MAG-AL PLUS) 30 mL ORAL q 6 H PRN amLODIPine 10 mg tab(s) (NORVASC) 10 mg ORAL DAILY calcium carbonate 500-1,000 mg chewable tab(s) (TUMS) 500- 1,000 mg ORAL TID PRN cyclobenzaprine 5 mg tab(s) (FLEXERIL) 5 mg ORAL TID PRN dextrose 40 % 15 g 15 g ORAL PRN dextrose 50 % 12.5 g injection 12.5 g INTRAVENOUS PRN diphenhydrAMINE 12.5 mg CUP (BENADRYL) 12.5 mg ORAL q 6 H PRN docusate sodium 100 mg cap(s) (COLACE) 100 mg ORAL BID docusate sodium 100 mg cap(s) (COLACE) 100 mg ORAL BID DULoxetine 60 mg cap(s) (CYMBALTA) 60 mg ORAL AT BEDTIME enoxaparin 105 mg injection (LOVENOX) 1 mg/kg/dose (Order-Specific) SUBCUTANEOUS q 12 HR gabapentin 300 mg cap(s) (NEURONTIN) 300 mg ORAL AT BEDTIME glucagon 1 mg injection (GLUCAGEN) 1 mg INTRAMUSCULAR PRN hydrALAZINE 5 mg injection (APRESOLINE) 5 mg INTRAVENOUS q 6 H PRN HYDROmorphone 0.2 mg injection (DILAUDID) 0.2 mg INTRAVENOUS q 3 H PRN insulin glargine 10 Units pen (long acting) (LANTUS SOLOSTAR, BASAGLAR KWIKPEN) 10 Units SUBCUTANEOUS DAILY (8 AM) insulin lispro injection (rapid acting) (HumaLOG) SUBCUTANEOUS w MEALS AND HS ipratropium-albuterol 3 mL nebulizer solution (DUONEB) 3 mL INHALATION q 4 H while awake losartan 50 mg tab(s) (COZAAR) 50 mg ORAL DAILY metoprolol tartrate (short acting) 12.5 mg tab(s) (LOPRESSOR) 12.5 mg ORAL q 12 H NaCl 0.9% 10 mL 10 mL INTRAVENOUS q 12 H NaCl 0.9% 20 mL 20 mL INTRAVENOUS PRN NaCl 0.9% 3-5 mL 3-5 mL INTRAVENOUS q 12 H ondansetron (PF) 4 mg injection (ZOFRAN) 4 mg INTRAVENOUS q 6 H PRN oxyCODONE IR 5-10 mg tab(s) (ROXICODONE) 5-10 mg ORAL q [address] 40 mg tab(s) (PROTONIX) 40 mg ORAL BID AC (0600/1600) polyethylene glycol 3350 17 g packet (MIRALAX, GLYCOLAX) 17 g ORAL DAILY QUEtiapine 100 mg tab(s) (SEROquel) 100 mg ORAL AT BEDTIME senna 8.6 mg tab(s) (SENOKOT) 8.6 mg ORAL BID warfarin order for discharge OTHER PRN Prior to Admission Medications: amLODIPine (NORVASC) 5 mg tablet Take 2 tablets by mouth every evening. DULoxetine (CYMBALTA) 60 mg capsule Take 1 capsule by mouth daily at bedtime. gabapentin (NEURONTIN) 100 mg capsule 300 mg daily at bedtime insulin aspart U-100 (NOVOLOG) 100 unit/mL inpn 15 units before meals + 2 u per 50 >200 TDD 75 units insulin glargine (BASAGLAR KWIKPEN U-100 INSULIN) 100 unit/mL (3 mL) inpn Inject 10 Units subcutaneously every 12 hours. 20 units sq twice daily Lancets lancets Use as instructed to test blood sugars 8 times daily E11.9 LANCETS REGULAR MISC 1 Each as directed. Use 6 x daily losartan (COZAAR) 50 mg tablet Take 1 tablet by mouth every evening. metoprolol succinate ER (TOPROL XL) 25 mg 24 hr tablet Take 1 tablet by mouth every evening. omeprazole (PRILOSEC) 20 mg capsule Take 1 capsule by mouth every evening. QUEtiapine (SEROQUEL) 100 mg tablet Take 1 tablet by mouth every evening. zolpidem (AMBIEN) 5 mg tablet Take 1 tablet by mouth at bedtime as needed (for insomnia.) for up to 180 days. aspirin, enteric coated (ASPIRIN, ENTERIC COATED) 81 mg EC tablet Take 1 tablet by mouth every evening. blood sugar diagnostic (Budding BiologistTOUCH ULTRA TEST) test strip TEST BLOOD SUGAR 6 TO 8 TIMES DAILY Dx: E11.9 Insulin:yes Blood Sugar Diagnostic, Disc strp 1 Each as directed. CHECK BLOOD GLUCOSE EIGHT TIMES PER DAY/ Blood-Glucose Meter (Budding BiologistTOUCH ULTRA2) monitoring kit As directed cholecalciferol, Vitamin D3, (VITAMIN D3) 50,000 unit cap capsule Take 1 capsule by mouth once each week. Take with your largest meal of the day clonazePAM (KLONOPIN) 1 mg tablet Take 1 tablet by mouth daily at bedtime for 30 days. Diaper,Brief, Adult,Disposable (PREVAIL ADJUST UNDERWEAR SHABANA LARA) misc 1 Each as needed. Dx: N36.0, K58.9 enoxaparin (LOVENOX) 120 mg/0.8 mL injection Inject 0.7 mL subcutaneously every 12 hours for 10 days. estradiol (ESTRACE) 0.01 % (0.1 mg/gram) vaginal cream 1/2 inch of cream to lower vagina qhs twice weekly Fesoterodine (TOVIAZ) 8 mg Tb24 Take 1 tablet by mouth once daily. meloxicam (MOBIC) 15 mg tablet Take 1 tablet by mouth every evening. Multivits,CalciumAND Minerals-FA 267 mcg tab Take 1 tablet by mouth twice daily. Centrum Adult Chewables MVI with minerals is preferred; must be chewable pen needle, diabetic 33 gauge x 5/32 ndle 1 Each as directed. Use with injections 4x daily E11.9 potassium chloride (K-TAB) 10 mEq tablet Take 1 tablet by mouth twice daily. Patient Active Hospital Problem List: Ventral hernia without obstruction or gangrene (03/26/2018) Incisional hernia (05/21/2018) Ventral hernia (05/21/2018) Acute pulmonary embolism (HCC) (05/27/2018) CBC Collected: 05/31/2018 Status: F Source: [place] 5:51 AM [facility] REPOSITORY TYPE CODE TESTS RESULT OUT OF REFERENCE UNITS RANGE LAB WBC 3.70-11.00 k/uL WBC 5.42 LAB RBC 3.90-5.20 m/uL Low RBC 3.24 LAB HGB 11.5-15.5 g/dL Low Hemoglobin 9.4 LAB HCT 36.0-46.0 % Low Hematocrit 29.6 LAB MCV 80.0-100.0 fL MCV 91.4 LAB MCH 26.0-34.0 pG MCH 29.0 LAB MCHC 30.5-36.0 g/dL MCHC 31.8 LAB RDWCV 11.5-15.0 % RDW-CV High 15.8 LAB PLTCT 150-400 k/uL Platelet Count 306 LAB MPV 9.0-12.7 fL MPV 9.1 LAB ABSNUC <0.01 k/uL Absolute High nRBC 0.02 Performed By: #### CBC, PT, BMP, MG1, PHOS #### [facility] [address] [place], [place] [address] PROTIME Collected: 05/31/2018 Status: F Source: [place] 5:51 AM [facility] REPOSITORY TYPE CODE TESTS RESULT OUT OF RANGE REFERENCE UNITS LAB PSEC 9.7-13.0 sec PT Sec 11.9 LAB INR 0.9-1.3 PT INR 1.1 Result Comment: Vitamin K Antagonist (VKA) Therapeutic Range: INR 2 to 3 (Target INR of 2.5) Note: For patients treated with VKA drugs, such as warfarin, the [place] [employer] 2012 Guideline recommends a therapeutic INR range of 2 to 3 (target INR of 2.5). This recommendation includes high-risk patients with antiphospholipid syndrome with previous arterial or venous thromboembolism, current-generation mechanical or bioprosthetic aortic heart valve replacement. Note: Patients with mechanical aortic valve replacement and additional risk factors for thromboembolic events (atrial fibrillation, previous thromboembolism, LV dysfunction, hypercoagulable conditions) or an older generation mechanical AVR (i.e., ball in-Cage) or any mechanical MVR should have a INR therapeutic range of 2.5 to 3.5 (target INR of 3). Guyatt GH, et al. Chest 2012, 141:7S-47S Gurpreet RA, et al. [facility] 2017, 70: 252-289 Performed By: #### CBC, PT, BMP, MG1, PHOS #### [facility] [address] [place], [place] [address] BASIC METABOLIC PANL Collected: 05/31/2018 Status: F Source: [place] 5:51 AM [facility] REPOSITORY TYPE CODE TESTS RESULT OUT OF REFERENCE UNITS RANGE LAB GLU 74-99 mg/dL High Glucose 155 Result Comment: The [place] [employer] (ADA) provides guidance for cutoff values for fasting glucose and random glucose. The ADA defines fasting as no caloric intake for at least 8 hours. Fas ting plasma glucose results between 100 to 125 mg/dL indicate increased risk for diabetes (prediabetes). Fasting plasma glucose results greater than or equal to 126 mg/dL meet the criteria for diagnosis of diabetes. In the absence of unequivocal hyperglycemia, results should be confirmed by repeat testing. In a patient with classic symptoms of hyperglycemia or hyperglycemic crisis, random plasma glucose results greater than or equal to 200 mg/dL meet the criteria for diagnosis of diabetes. Reference: Standards of Medical Care in Diabetes 2016, [place] [employer]. Diabetes Care. 2016.39(Suppl 1). LAB BUN 7-21 mg/dL BUN 9 LAB CRET 0.58-0.96 mg/dL Creatinine 0.59 LAB NA 136-144 mmol/L Sodium 141 LAB K 3.7-5.1 mmol/L Potassium 3.7 LAB CL 97-105 mmol/L Chloride 100 LAB CO2 22-30 mmol/L CO2 24 LAB AGAP 9-18 mmol/L Anion Gap 17 LAB CA 8.5-10.2 mg/dL Calcium, Low Total 8.3 LAB GFRAA eGFR- Amer. >60 LAB GFRNAA . eGFR-All Other Races >60 Result Comment: eGFR (Estimated GFR) Units of measure: mL/min/1.73 meters squared eGFR is derived from the reexpressed MDRD Study equation using the following parameters: serum creatinine, age, gender and race. The creatinine assay has been calibrated to be traceable to IDMS. An eGFR <60 mL/min/1.73m2 for >3 months is consistent with chronic kidney disease. Refer to KDOQI guidelines for clinical interpretation. In patients with unstable renal function, e.g. those with acute kidney injury, the eGFR may not accurately reflect actual GFR. Performed By: #### CBC, PT, BMP, MG1, PHOS #### [facility] [address] [address] MAGNESIUM Collected: 05/31/2018 Status: F Source: [place] 5:51 AM [facility] REPOSITORY TYPE CODE TESTS RESULT OUT OF REFERENCE UNITS RANGE LAB MG 1.7-2.3 mg/dL Magnesium 1.8 Performed By: #### CBC, PT, BMP, MG1, PHOS #### [facility] [address] [place] [id number] PHOSPHORUS Collected: 05/31/2018 Status: F Source: [place] 5:51 AM [facility] REPOSITORY TYPE CODE TESTS RESULT OUT OF REFERENCE UNITS RANGE LAB PHOS 2.7-4.8 mg/dL Phosphorus 4.0 Performed By: #### CBC, PT, BMP, MG1, PHOS #### [facility] [address] [place], [place] [address] PLAN OF CARE Observed: 05/30/2018 Status: COMPLETED Source: [place] 12:48 PM [facility] REPOSITORY HNO ID: [id number] Author: Barbra Krueger (Hydrochloric Manufacturing Supervisor) Service: (none) Author Type: (none) Type: Plan of Care Filed: 05/30/2018 12:48 PM Note Text: LOCOMOTIVE REPAIRER DIESEL BEDSIDE DELIVERY SURVEY 1. Patient to use [facility] Bedside Delivery - YES 2. If fax, patient would like us to fax prescriptions to Pharmacy of choice a. Pharmacy: b. Location: c. Phone: 3. Insurance card on file - YES 4. Credit card for payment - N/A No prescriptions yet. Please page [phone] upon discharge. CASE MANAGEM Observed: 05/30/2018 Status: COMPLETED Source: [place] 12:32 PM [facility] REPOSITORY HNO ID: [id number] Author: Becky GonzalezRn) FERNIE Ledesma Service: Care Management Author Type: Registered Nurse Type: Care Mgt Progress Note Filed: 05/30/2018 12:39 PM Note Text: CARE MANAGEMENT PROGRESS NOTE SERVICE DATE: 05/30/2018 SERVICE TIME: 12:32 PM LOS: 9 days Needs Prior to Discharge: Ready for Discharge from case management standpoint. Likely discharge this weekend. No skilled needs identified at this time. You may page weekend associate merchandise planner at #[phone] if immediate needs should arise. DC Plan: Patient will discharge to home - family to transport Patient tolerating room air. Care management team is following patient for skilled needs and coordination of discharge planning. SIGNATURE: Becky Ledesma RN PATIENT NAME: Adri Goyal DATE: May 30, 2018 TIME: 12:32 PM PAGER/CONTACT #: [phone] CASE MANAGEM Observed: 05/30/2018 Status: COMPLETED Source: [place] 11:41 AM [facility] REPOSITORY HNO ID: [id number] Author: Anastasia Snow Service: Care Management Author Type: Adventure Therapist Type: Care Mgt Progress Note Filed: 05/30/2018 11:42 AM Note Text: CARE MANAGEMENT PROGRESS NOTE SERVICE DATE: 05/30/2018 SERVICE TIME: 1038 LOS: 9 days IM letter given to patient on 05/30/2018. SIGNATURE: Anastasia Snow, PATIENT NAME: Adri Goyal DATE: May 30, 2018 TIME: 11:41 AM PAGER/CONTACT #: [phone] PROTIME Collected: 05/30/2018 Status: F Source: [place] 11:00 AM [facility] REPOSITORY TYPE CODE TESTS RESULT OUT OF RANGE REFERENCE UNITS LAB PSEC 9.7-13.0 sec PT Sec 11.4 LAB INR 0.9-1.3 PT INR 1.1 Result Comment: Vitamin K Antagonist (VKA) Therapeutic Range: INR 2 to 3 (Target INR of 2.5) Note: For patients treated with VKA drugs, such as warfarin, the [place] [employer] 2012 Guideline recommends a therapeutic INR range of 2 to 3 (target INR of 2.5). This recommendation includes high-risk patients with antiphospholipid syndrome with previous arterial or venous thromboembolism, current-generation mechanical or bioprosthetic aortic heart valve replacement. Note: Patients with mechanical aortic valve replacement and additional risk factors for thromboembolic events (atrial fibrillation, previous thromboembolism, LV dysfunction, hypercoagulable conditions) or an older generation mechanical AVR (i.e., ball in-Cage) or any mechanical MVR should have a INR therapeutic range of 2.5 to 3.5 (target INR of 3). David GH, et al. Chest 2012, 141:7S-47S Gurpreet RA, et al. [facility] 2017, 70: 252-289 Performed By: #### PT #### [facility] [address] [address] CONSULT PROG Observed: 05/30/2018 Status: COMPLETED Source: [place] 7:59 AM [facility] REPOSITORY HNO ID: [id number] Author: JESSICA Pérez (Pa) Service: Vascular Medicine Author Type: Physician Programs Assistant Type: Consult Progress Note Filed: 05/30/2018 1:49 PM Note Text: VASCMED CONSULT PROGRESS NOTE Subjective Follow Up Regarding: PE INTERVAL HPI and PERTINENT ROS: No acute overnight events. SOB improved today, oxygen requirement decreased now on 1L NC, trial off oxygen today. Appetite continues to improve. No nausea or vomiting. Denies chest pain or clinical signs of bleeding. +BM Having a difficult time with blood draw for INR today. Hb.9 Platelets: 301 Creatinine: 0.60 INR:pending Estimated Creatinine Clearance: 163.4 mL/min (A) (based on SCr of 0.53 mg/dL (L)). Current Facility-Administered Medications: acetaminophen 1,000 mg tab(s) (TYLENOL) 1,000 mg ORAL q 6 H aluminum-magnesium hydroxide-simethicone 200-200-20 mg/5 mL 30 mL (MAALOX,MYLANTA,MAG-AL PLUS) 30 mL ORAL q 6 H PRN amLODIPine 10 mg tab(s) (NORVASC) 10 mg ORAL DAILY calcium carbonate 500-1,000 mg chewable tab(s) (TUMS) 500- 1,000 mg ORAL TID PRN cyclobenzaprine 5 mg tab(s) (FLEXERIL) 5 mg ORAL TID PRN dextrose 40 % 15 g 15 g ORAL PRN Or glucagon 1 mg injection (GLUCAGEN) 1 mg INTRAMUSCULAR PRN Or dextrose 50 % 12.5 g injection 12.5 g INTRAVENOUS PRN diphenhydrAMINE 12.5 mg CUP (BENADRYL) 12.5 mg ORAL q 6 H PRN docusate sodium 100 mg cap(s) (COLACE) 100 mg ORAL BID docusate sodium 100 mg cap(s) (COLACE) 100 mg ORAL BID DULoxetine 60 mg cap(s) (CYMBALTA) 60 mg ORAL AT BEDTIME enoxaparin 105 mg injection (LOVENOX) 1 mg/kg/dose (Order-Specific) SUBCUTANEOUS q 12 HR furosemide 20 mg injection (LASIX) 20 mg INTRAVENOUS ONCE gabapentin 300 mg cap(s) (NEURONTIN) 300 mg ORAL AT BEDTIME hydrALAZINE 5 mg injection (APRESOLINE) 5 mg INTRAVENOUS q 6 H PRN HYDROmorphone 0.2 mg injection (DILAUDID) 0.2 mg INTRAVENOUS q 3 H PRN insulin lispro injection (rapid acting) (HumaLOG) SUBCUTANEOUS w MEALS AND HS ipratropium-albuterol 3 mL nebulizer solution (DUONEB) 3 mL INHALATION q 4 H while awake losartan 50 mg tab(s) (COZAAR) 50 mg ORAL DAILY metoprolol tartrate (short acting) 12.5 mg tab(s) (LOPRESSOR) 12.5 mg ORAL q 12 H NaCl 0.9% 10 mL 10 mL INTRAVENOUS q 12 H NaCl 0.9% 20 mL 20 mL INTRAVENOUS PRN NaCl 0.9% 3-5 mL 3-5 mL INTRAVENOUS q 12 H ondansetron (PF) 4 mg injection (ZOFRAN) 4 mg INTRAVENOUS q 6 H PRN oxyCODONE IR 5-10 mg tab(s) (ROXICODONE) 5-10 mg ORAL q [address] 40 mg tab(s) (PROTONIX) 40 mg ORAL BID AC (0600/1600) polyethylene glycol 3350 17 g packet (MIRALAX, GLYCOLAX) 17 g ORAL DAILY QUEtiapine 100 mg tab(s) (SEROquel) 100 mg ORAL AT BEDTIME senna 8.6 mg tab(s) (SENOKOT) 8.6 mg ORAL BID warfarin order for discharge OTHER PRN Objective PHYSICAL EXAM: BP 132/67 Pulse 98 Temp 36.9 ?C (98.4 ?F) (Oral) Resp 18 Ht 177.8 cm (5' 10) Wt 113 kg (249 lb 1.9 oz) SpO2 98% BMI 35.74 kg/m? General: alert AND oriented x3, NAD Neck: supple Cardiac: RRR, no murmur Respiratory: CTA anteriorly, 3LNC Abdominal/GI: diffuse tenderness, JUVENTINO drains serosanguinous x3, binder in place Extremity: mild LE swelling Skin: warm, dry Pulse/vascular exam: bilateral +2 radial/ulnar/dp/pt DATA: Diagnostic tests reviewed for today's visit: Most recent labs and imaging results. CBC, Coags, BMP, Mg, Phos Recent Labs 05/30/18 0606 05/29/18 0821 05/28/18 1417 05/28/18 0659 05/27/18 1653 WBC 6.85 5.84 7.25 5.87 < > -- HB 9.9* 9.0* 10.5* 8.4* < > -- HCT 31.5* 28.3* 33.4* 26.7* < > -- PLT 301 291 347 267 < > -- INR -- 1.0 -- 1.0 -- 1.0 NA -- 139 -- 142 -- -- K -- 3.3* -- 3.7 -- -- CHLOR -- 100 -- 100 -- -- CO2 -- 22 -- 24 -- -- BUN -- 7 -- 9 -- -- CREAT -- 0.53* -- 0.55* -- -- GLUC -- 199* -- 146* -- -- CA -- 8.2* -- 8.0* -- -- MG -- 1.6* -- 1.7 -- -- P -- 2.0* -- 2.3* -- -- < > = values in this interval not displayed. Impression/Recommendations 57 year old female with PMH of multiple abdominal surgeries, DM, GERD, HTN, obesity s/p gastric bypass found to have provoked PE on chest CT in the setting of?bilateral myofasical flap with mesh repair on 05/21/[address] Jones for large incisional hernia. Biomarkers were negative. No evidence of right heart strain on CT. LE venous duplex negative. Hemoglobin anemic but stable. Platelets normal. No clinical signs of bleeding. Estimated Creatinine Clearance: 163.4 mL/min (A) (based on SCr of 0.53 mg/dL (L)). Plan discussed with Michell Webster MD: _Continue Lovenox 105mg BID to Coumadin bridge _Day 4 Coumadin: INR pending (INR target 2.0-3.0) -Will dose coumadin once INR results _Lovenox and Coumadin should overlap for a minimum of 5 days and until INR is therapeutic x 24 hrs before Lovenox can be discontinued. _Monitor for bleeding _Daily CBC/platelet, creatinine, INR in the AM _10-day supply Lovenox $0.00 co-pay _Dr. Leon Jimenez PCP will act as referring physician to [facility]. _Appointments have been made pending discharge: -Ibrahima Sarkar NP 06/03 @ 1:20pm [facility] 06/02 @ 3:45pm _Okay from a vascular medicine standpoint to finish bridge as an outpatient _Duration: at least 3 months for situational VTE _Follow up scheduled with vascular medicine _Following Addendum Component Latest Ref Rng AND Units 05/30/2018 PT Sec 9.7 - 13.0 sec 11.4 PT INR 0.9 - 1.3 1.1 Will give coumadin 5mg x 1 tonight _If patient gets discharged over the weekend, please write for Coumadin 5mg tablets (#60, 2 refills) JESSICA Pérez 1:49 PM SIGNATURE: JESSICA Pérez PATIENT NAME: Adri Goyal DATE: May 30, 2018 TIME: 10:58 AM PAGER/CONTACT #: [phone] . CBC Collected: 05/30/2018 Status: F Source: [place] 6:06 AM [facility] REPOSITORY TYPE CODE TESTS RESULT OUT OF RANGE REFERENCE UNITS LAB WBC 3.70-11.00 k/uL WBC 6.85 Result Comment: Microtainer specimen LAB RBC 3.90-5.20 m/uL RBC Low 3.45 LAB HGB 11.5-15.5 g/dL Hemoglobin Low 9.9 LAB HCT 36.0-46.0 % Hematocrit Low 31.5 LAB MCV 80.0-100.0 fL MCV 91.3 LAB MCH 26.0-34.0 pG MCH 28.7 LAB MCHC 30.5-36.0 g/dL MCHC 31.4 LAB RDWCV 11.5-15.0 % RDW-CV High 15.7 LAB PLTCT 150-400 k/uL Platelet Count 301 LAB MPV 9.0-12.7 fL MPV 9.6 LAB ABSNUC <0.01 k/uL Absolute nRBC <0.01 Performed By: #### CBC, BMP, MG1, PHOS #### [facility] [address] [id number] BASIC METABOLIC PANL Collected: 05/30/2018 Status: F Source: [place] 6:06 AM [facility] REPOSITORY TYPE CODE TESTS RESULT OUT OF REFERENCE UNITS RANGE LAB GLU 74-99 mg/dL High Glucose 174 Result Comment: The [place] [employer] (ADA) provides guidance for cutoff values for fasting glucose and random glucose. The ADA defines fasting as no caloric intake for at least 8 hours. Fas ting plasma glucose results between 100 to 125 mg/dL indicate increased risk for diabetes (prediabetes). Fasting plasma glucose results greater than or equal to 126 mg/dL meet the criteria for diagnosis of diabetes. In the absence of unequivocal hyperglycemia, results should be confirmed by repeat testing. In a patient with classic symptoms of hyperglycemia or hyperglycemic crisis, random plasma glucose results greater than or equal to 200 mg/dL meet the criteria for diagnosis of diabetes. Reference: Standards of Medical Care in Diabetes 2016, [place] [employer]. Diabetes Care. 2016.39(Suppl 1). LAB BUN 7-21 mg/dL BUN 7 LAB CRET 0.58-0.96 mg/dL Creatinine 0.60 LAB NA 136-144 mmol/L Sodium 141 LAB K 3.7-5.1 mmol/L Potassium 4.4 LAB CL 97-105 mmol/L Chloride 99 LAB CO2 22-30 mmol/L CO2 22 LAB AGAP 9-18 mmol/L Anion Gap High 20 LAB CA 8.5-10.2 mg/dL Calcium, Total 8.5 LAB GFRAA eGFR- Amer. >60 LAB GFRNAA . eGFR-All Other Races >60 Result Comment: eGFR (Estimated GFR) Units of measure: mL/min/1.73 meters squared eGFR is derived from the reexpressed MDRD Study equation using the following parameters: serum creatinine, age, gender and race. The creatinine assay has been calibrated to be traceable to IDMS. An eGFR <60 mL/min/1.73m2 for >3 months is consistent with chronic kidney disease. Refer to KDOQI guidelines for clinical interpretation. In patients with unstable renal function, e.g. those with acute kidney injury, the eGFR may not accurately reflect actual GFR. Performed By: #### CBC, BMP, MG1, PHOS #### [facility] [address] [address] MAGNESIUM Collected: 05/30/2018 Status: F Source: [place] 6:06 AM [facility] REPOSITORY TYPE CODE TESTS RESULT OUT OF REFERENCE UNITS RANGE LAB MG 1.7-2.3 mg/dL Magnesium 2.0 Performed By: #### CBC, BMP, MG1, PHOS #### [facility] [address] [address] PHOSPHORUS Collected: 05/30/2018 Status: F Source: [place] 6:06 AM [facility] REPOSITORY TYPE CODE TESTS RESULT OUT OF REFERENCE UNITS RANGE LAB PHOS 2.7-4.8 mg/dL Phosphorus 2.7 Performed By: #### CBC, BMP, MG1, PHOS #### [facility] [address] [place] [id number] PROGRESS Observed: 05/30/2018 Status: COMPLETED Source: [place] 5:55 AM [facility] REPOSITORY HNO ID: [id number] Author: eMhdi (Torsten Clayton Service: General Surgery Author Type: Resident Type: Progress Notes Filed: 05/30/2018 7:02 AM Note Text: General Surgery Progress Note Service Date: May 30, 2018 Patient Name: Adri Goyal Assessment and Plan: Adri Goyal is a 57 year old female with history of multiple abdominal surgeries complicated by large incisional hernia now s/p bilateral TAR with mesh placement on 05/21. Remained intubated and admitted to SICU. Extubated on 05/22. Transferred to [facility] on 05/23. AM[facility] called on 05/26 for chest pain, tachycardia and increased O2 requirement: CT PE showed subacute on chronic PE, currently on Lovenox bridging to coumadin Neuro/Pain: Flexeril + PO pain meds. Continue home seroquel and cymbalta. Continue gabapentin Cardio/Resp: Continue incentive spirometry, NC PRN, attempt to wean off O2, Consult respiratory therapy. Will give a dose of Lasix today. FEN/GI: LR @ 50cc/h. Replete Lytes. Diet: GISoft. Zofran available. Protonix 40 BID, Tums PRN Renal: Strict I/Os. Urine output adequate Heme/DVT PPx: ICDs. Appreciate vascular medicine recs, Lovenox 105 BID brdging with coumadin. Drains: continue JUVENTINO to bulb suction Wound/ID: No abx Endo: On SSI scale 3 Dispo: Continue [facility] Mehdi Clayton MD General Surgery, PGY-1 Pager: [phone] (Gen Surg Pager) May 30, 2018 5:56 AM Subjective: No acute events overnight. Having issues with heartburn with PO intake. Passing gas, and having BM. Physical Exam: BP 132/67 Pulse 98 Temp 36.9 ?C (98.4 ?F) (Oral) Resp 18 Ht 177.8 cm (5' 10) Wt 113 kg (249 lb 1.9 oz) SpO2 98% BMI 35.74 kg/m? GENERAL/NEURO: Sedated HEENT: Normocephalic, Atraumatic CHEST: Unlabored breathing on RA ABDOMEN: Soft, mildly tender, mildly distended, Incision c/d/i, JPs yielding SS fluid EXTREMITIES: warm, well perfused Labs: CBC, Coags, BMP, Mg, Phos Recent Labs 05/29/18 0821 05/28/18 1417 05/28/18 0659 05/27/18 1653 05/27/18 0611 WBC 5.84 7.25 5.87 -- 9.78 HB 9.0* 10.5* 8.4* -- 10.3* HCT 28.3* 33.4* 26.7* -- 32.8* PLT 291 347 267 -- 336 INR 1.0 -- 1.0 1.0 -- APTT -- -- -- -- 51.8* NA 139 -- 142 -- 138 K 3.3* -- 3.7 -- 4.1 CHLOR 100 -- 100 -- 99 CO2 22 -- 24 -- 25 BUN 7 -- 9 -- 13 CREAT 0.53* -- 0.55* -- 0.63 GLUC 199* -- 146* -- 170* CA 8.2* -- 8.0* -- 8.4* MG 1.6* -- 1.7 -- 2.0 P 2.0* -- 2.3* -- 2.6* Liver Function, Amylase, AND Lipase Intake and Output: Date 05/21/18699 - 05/22/1865805/22/18 07 - 05/23/18 0659 Shift 6491-9117 7881-4256 4867-7948 24 Hour Total 1754-8877 9247-2164 1789-0692 24 Hour Total I N T A K E IV 4050 891 4941 LR 150 707 857 OR Crystalloid intake (mL) 3900 3900 Propofol IV 184 184 Shift Total 4050 891 4941 O U T P U T Urine 450 395 845 OR Urine Output 160 160 Tube Output ( Indwelling Urinary Catheter 05/21/18 1145 Hong 16 Fr) 290 395 685 Tubes 205 220 425 Drain/Tube Output (Drain/Tube 05/21/18 1524 Socrates Harkins Left Upper Quadrant Drain #1) 40 50 90 Drain/Tube Output (Drain/Tube 05/21/18 1524 Socrates Harkins Left Lower Quadrant Abdomen Drain #2) 90 85 175 Drain/Tube Output (Drain/Tube 05/21/18 1621 Socrates Harkins Right Upper Quadrant Abdomen Drain #3) 20 15 35 Drain/Tube Output (Drain/Tube 05/21/18 1621 Socrates Harkins Right Lower Quadrant Abdomen Drain #4) 55 70 125 Blood 100 100 Estimated Blood loss 100 100 Shift Total 658 188 1246 Weight (kg) 110.7 110.7 110.7 110.7 110.7 110.7 Current Medications: Current hospital medications: acetaminophen 1,000 mg tab(s) (TYLENOL) 1,000 mg ORAL q 6 H aluminum-magnesium hydroxide-simethicone 200-200-20 mg/5 mL 30 mL (MAALOX,MYLANTA,MAG-AL PLUS) 30 mL ORAL q 6 H PRN amLODIPine 10 mg tab(s) (NORVASC) 10 mg ORAL DAILY calcium carbonate 500-1,000 mg chewable tab(s) (TUMS) 500- 1,000 mg ORAL TID PRN cyclobenzaprine 5 mg tab(s) (FLEXERIL) 5 mg ORAL TID PRN dextrose 40 % 15 g 15 g ORAL PRN dextrose 50 % 12.5 g injection 12.5 g INTRAVENOUS PRN diphenhydrAMINE 12.5 mg CUP (BENADRYL) 12.5 mg ORAL q 6 H PRN docusate sodium 100 mg cap(s) (COLACE) 100 mg ORAL BID docusate sodium 100 mg cap(s) (COLACE) 100 mg ORAL BID DULoxetine 60 mg cap(s) (CYMBALTA) 60 mg ORAL AT BEDTIME enoxaparin 105 mg injection (LOVENOX) 1 mg/kg/dose (Order-Specific) SUBCUTANEOUS q 12 HR gabapentin 300 mg cap(s) (NEURONTIN) 300 mg ORAL AT BEDTIME glucagon 1 mg injection (GLUCAGEN) 1 mg INTRAMUSCULAR PRN hydrALAZINE 5 mg injection (APRESOLINE) 5 mg INTRAVENOUS q 6 H PRN HYDROmorphone 0.2 mg injection (DILAUDID) 0.2 mg INTRAVENOUS q 3 H PRN insulin lispro injection (rapid acting) (HumaLOG) SUBCUTANEOUS w MEALS AND HS ipratropium-albuterol 3 mL nebulizer solution (DUONEB) 3 mL INHALATION q 4 H while awake losartan 50 mg tab(s) (COZAAR) 50 mg ORAL DAILY metoprolol tartrate (short acting) 12.5 mg tab(s) (LOPRESSOR) 12.5 mg ORAL q 12 H NaCl 0.9% 10 mL 10 mL INTRAVENOUS q 12 H NaCl 0.9% 20 mL 20 mL INTRAVENOUS PRN NaCl 0.9% 3-5 mL 3-5 mL INTRAVENOUS q 12 H ondansetron (PF) 4 mg injection (ZOFRAN) 4 mg INTRAVENOUS q 6 H PRN oxyCODONE IR 5-10 mg tab(s) (ROXICODONE) 5-10 mg ORAL q [address] 40 mg tab(s) (PROTONIX) 40 mg ORAL BID AC (0600/1600) polyethylene glycol 3350 17 g packet (MIRALAX, GLYCOLAX) 17 g ORAL DAILY QUEtiapine 100 mg tab(s) (SEROquel) 100 mg ORAL AT BEDTIME senna 8.6 mg tab(s) (SENOKOT) 8.6 mg ORAL BID warfarin order for discharge OTHER PRN Prior to Admission Medications: amLODIPine (NORVASC) 5 mg tablet Take 2 tablets by mouth every evening. DULoxetine (CYMBALTA) 60 mg capsule Take 1 capsule by mouth daily at bedtime. gabapentin (NEURONTIN) 100 mg capsule 300 mg daily at bedtime insulin aspart U-100 (NOVOLOG) 100 unit/mL inpn 15 units before meals + 2 u per 50 >200 TDD 75 units insulin glargine (BASAGLAR KWIKPEN U-100 INSULIN) 100 unit/mL (3 mL) inpn Inject 10 Units subcutaneously every 12 hours. 20 units sq twice daily Lancets lancets Use as instructed to test blood sugars 8 times daily E11.9 LANCETS REGULAR MISC 1 Each as directed. Use 6 x daily losartan (COZAAR) 50 mg tablet Take 1 tablet by mouth every evening. metoprolol succinate ER (TOPROL XL) 25 mg 24 hr tablet Take 1 tablet by mouth every evening. omeprazole (PRILOSEC) 20 mg capsule Take 1 capsule by mouth every evening. QUEtiapine (SEROQUEL) 100 mg tablet Take 1 tablet by mouth every evening. zolpidem (AMBIEN) 5 mg tablet Take 1 tablet by mouth at bedtime as needed (for insomnia.) for up to 180 days. aspirin, enteric coated (ASPIRIN, ENTERIC COATED) 81 mg EC tablet Take 1 tablet by mouth every evening. blood sugar diagnostic (ONETOUCH ULTRA TEST) test strip TEST BLOOD SUGAR 6 TO 8 TIMES DAILY Dx: E11.9 Insulin:yes Blood Sugar Diagnostic, Disc strp 1 Each as directed. CHECK BLOOD GLUCOSE EIGHT TIMES PER DAY/ Blood-Glucose Meter (Budding BiologistTOUCH ULTRA2) monitoring kit As directed cholecalciferol, Vitamin D3, (VITAMIN D3) 50,000 unit cap capsule Take 1 capsule by mouth once each week. Take with your largest meal of the day clonazePAM (KLONOPIN) 1 mg tablet Take 1 tablet by mouth daily at bedtime for 30 days. Diaper,Brief, Adult,Disposable (PREVAIL ADJUST UNDERWEAR SHABANA LARA) misc 1 Each as needed. Dx: N36.0, K58.9 enoxaparin (LOVENOX) 120 mg/0.8 mL injection Inject 0.7 mL subcutaneously every 12 hours for 10 days. estradiol (ESTRACE) 0.01 % (0.1 mg/gram) vaginal cream 1/2 inch of cream to lower vagina qhs twice weekly Fesoterodine (TOVIAZ) 8 mg Tb24 Take 1 tablet by mouth once daily. meloxicam (MOBIC) 15 mg tablet Take 1 tablet by mouth every evening. Multivits,CalciumAND Minerals-FA 267 mcg tab Take 1 tablet by mouth twice daily. Centrum Adult Chewables MVI with minerals is preferred; must be chewable pen needle, diabetic 33 gauge x 5/32 ndle 1 Each as directed. Use with injections 4x daily E11.9 potassium chloride (K-TAB) 10 mEq tablet Take 1 tablet by mouth twice daily. Patient Active Hospital Problem List: Ventral hernia without obstruction or gangrene (03/26/2018) Incisional hernia (05/21/2018) Ventral hernia (05/21/2018) Acute pulmonary embolism (HCC) (05/27/2018) CONSULT PROG Observed: 05/29/2018 Status: COMPLETED Source: [place] 2:59 PM [facility] REPOSITORY HNO ID: [id number] Author: May Lo (Kirt) Ethan Service: Vascular Medicine Author Type: Nurse Practitioner Type: Consult Progress Note Filed: 05/29/2018 3:11 PM Note Text: VASCMED CONSULT PROGRESS NOTE Subjective Follow Up Regarding: PE INTERVAL HPI and PERTINENT ROS: INR 1 platelet 291 hgb 9 creatinine 0.53 S: Sitting up in bed. denies hemoptysis, epistaxis, hematuria, hematochezia, or melena had some nausea, small amt of emesis w/am pills and oral potassium supplements. previously tolerating meals ok Current Facility-Administered Medications: acetaminophen 1,000 mg tab(s) (TYLENOL) 1,000 mg ORAL q 6 H aluminum-magnesium hydroxide-simethicone 200-200-20 mg/5 mL 30 mL (MAALOX,MYLANTA,MAG-AL PLUS) 30 mL ORAL q 6 H PRN amLODIPine 10 mg tab(s) (NORVASC) 10 mg ORAL DAILY calcium carbonate 500-1,000 mg chewable tab(s) (TUMS) 500- 1,000 mg ORAL TID PRN cyclobenzaprine 5 mg tab(s) (FLEXERIL) 5 mg ORAL TID PRN dextrose 40 % 15 g 15 g ORAL PRN Or glucagon 1 mg injection (GLUCAGEN) 1 mg INTRAMUSCULAR PRN Or dextrose 50 % 12.5 g injection 12.5 g INTRAVENOUS PRN diphenhydrAMINE 12.5 mg CUP (BENADRYL) 12.5 mg ORAL q 6 H PRN docusate sodium 100 mg cap(s) (COLACE) 100 mg ORAL BID docusate sodium 100 mg cap(s) (COLACE) 100 mg ORAL BID DULoxetine 60 mg cap(s) (CYMBALTA) 60 mg ORAL AT BEDTIME enoxaparin 105 mg injection (LOVENOX) 1 mg/kg/dose (Order-Specific) SUBCUTANEOUS q 12 HR gabapentin 300 mg cap(s) (NEURONTIN) 300 mg ORAL AT BEDTIME hydrALAZINE 5 mg injection (APRESOLINE) 5 mg INTRAVENOUS q 6 H PRN HYDROmorphone 0.2 mg injection (DILAUDID) 0.2 mg INTRAVENOUS q 3 H PRN insulin lispro injection (rapid acting) (HumaLOG) SUBCUTANEOUS w MEALS AND HS ipratropium-albuterol 3 mL nebulizer solution (DUONEB) 3 mL INHALATION q 4 H while awake losartan 50 mg tab(s) (COZAAR) 50 mg ORAL DAILY metoprolol tartrate (short acting) 12.5 mg tab(s) (LOPRESSOR) 12.5 mg ORAL q 12 H NaCl 0.9% 10 mL 10 mL INTRAVENOUS q 12 H NaCl 0.9% 20 mL 20 mL INTRAVENOUS PRN NaCl 0.9% 3-5 mL 3-5 mL INTRAVENOUS q 12 H ondansetron (PF) 4 mg injection (ZOFRAN) 4 mg INTRAVENOUS q 6 H PRN oxyCODONE IR 5-10 mg tab(s) (ROXICODONE) 5-10 mg ORAL q 3 H PRN pantoprazole DR 40 mg tab(s) (PROTONIX) 40 mg ORAL BID AC (0600/1600) polyethylene glycol 3350 17 g packet (MIRALAX, GLYCOLAX) 17 g ORAL DAILY potassium chloride ER 40 mEq tab(s) (K-DUR, KLOR-CON) 40 mEq ORAL ONCE potassium chloride iv piggyback 20 mEq/100 mL 20 mEq INTRAVENOUS q 1 H QUEtiapine 100 mg tab(s) (SEROquel) 100 mg ORAL AT BEDTIME senna 8.6 mg tab(s) (SENOKOT) 8.6 mg ORAL BID sodium glycerophosphate 30 mmol in D5W 250 mL (GLYCOPHOS) 30 mmol INTRAVENOUS ONCE warfarin 4 mg tab(s) (COUMADIN) 4 mg ORAL ONCE - WARFARIN warfarin order for discharge OTHER PRN Objective PHYSICAL EXAM: BP 141/70 Pulse 94 Temp 36.7 ?C (98 ?F) (Oral) Resp 18 Ht 177.8 cm (5' 10) Wt 113 kg (249 lb 1.9 oz) SpO2 94% BMI 35.74 kg/m? General: alert AND oriented x3 Cardiac: RRR, no murmur Respiratory: clear b/l Abdominal/GI: diffuse tenderness, JUVENTINO drains x3, serosanguinous drainage, abdominal binder in place Extremity: +2 B/L LE swelling Skin: warm, dry Pulse/vascular exam: B/L + 2 rad/dp DATA: Diagnostic tests reviewed for today's visit: Most recent labs and imaging results. CBC, Coags, BMP, Mg, Phos Recent Labs 05/29/18 0821 05/28/18 1417 05/28/18 0659 05/27/18 1653 05/27/18 0611 05/26/18 1827 WBC 5.84 7.25 5.87 -- 9.78 < > -- HB 9.0* 10.5* 8.4* -- 10.3* < > -- HCT 28.3* 33.4* 26.7* -- 32.8* < > -- PLT 291 347 267 -- 336 < > -- INR 1.0 -- 1.0 1.0 -- -- -- APTT -- -- -- -- 51.8* -- -- NA 139 -- 142 -- 138 < > -- K 3.3* -- 3.7 -- 4.1 < > -- CHLOR 100 -- 100 -- 99 < > -- CO2 22 -- 24 -- 25 < > -- BUN 7 -- 9 -- 13 < > -- CREAT 0.53* -- 0.55* -- 0.63 < > -- GLUC 199* -- 146* -- 170* < > -- IC -- -- -- -- -- -- 1.12 CA 8.2* -- 8.0* -- 8.4* < > -- MG 1.6* -- 1.7 -- 2.0 -- -- P 2.0* -- 2.3* -- 2.6* -- -- < > = values in this interval not displayed. Impression/Recommendations 57 year old female with PMH of multiple abdominal surgeries, obesity s/p remote gastric bypass s/p?bilateral myofasical flap with mesh repair on 05/21/[address] Jones for large incisional hernia. Post op on 05/26 found to have PE (ADAM segmental/subsegmental). Cardiac biomarkers were negative. No evidence of right heart strain on CT. LE venous duplex negative. She was started on IV UFH, and transitioned to lovenox. Bridging started. Some mild fluctuations in h/h likely in the setting of post-op setting and diuresis. No signs of bleeding on exam. Pt has not been transfused post-op. Hgb fluctuating between 9-10.5. INR 1, Estimated Creatinine Clearance: 163.4 mL/min (A) (based on SCr of 0.53 mg/dL (L)). Plan discussed with Dr. Webster: Continue Lovenox 105 mg SC every 12 hrs Day 3: Coumadin 4 mg x1 Lovenox and Coumadin should overlap for a minimum of 5 days and until INR is therapeutic x 24 hrs before Lovenox can be discontinued. Daily CBC/platelet, creatinine, INR in house 10-day supply Lovenox $0.00 co-pay Duration: at least 3 months for situational VTE INR check Saturday [facility] CC 06/02 @ 3:45pm hospital f/[facility] Sarkar NP 06/03 @ 1:20pm [place] SIGNATURE: May Long APRN.CNP PATIENT NAME: Adri Goyal DATE: May 29, 2018 TIME: 11:30 am PAGER/CONTACT #: [phone] . PROTIME Collected: 05/29/2018 Status: F Source: [place] 8:21 AM [facility] REPOSITORY TYPE CODE TESTS RESULT OUT OF RANGE REFERENCE UNITS LAB PSEC 9.7-13.0 sec PT Sec 10.8 LAB INR 0.9-1.3 PT INR 1.0 Result Comment: Vitamin K Antagonist (VKA) Therapeutic Range: INR 2 to 3 (Target INR of 2.5) Note: For patients treated with VKA drugs, such as warfarin, the [place] [employer] 2012 Guideline recommends a therapeutic INR range of 2 to 3 (target INR of 2.5). This recommendation includes high-risk patients with antiphospholipid syndrome with previous arterial or venous thromboembolism, current-generation mechanical or bioprosthetic aortic heart valve replacement. Note: Patients with mechanical aortic valve replacement and additional risk factors for thromboembolic events (atrial fibrillation, previous thromboembolism, LV dysfunction, hypercoagulable conditions) or an older generation mechanical AVR (i.e., ball in-Cage) or any mechanical MVR should have a INR therapeutic range of 2.5 to 3.5 (target INR of 3). Guyatt GH, et al. Chest 2012, 141:7S-47S Gurpreet RA, et al. JACC 2017, 70: 252-289 Performed By: #### PT, CBC, BMP, MG1, PHOS #### [facility] [address] [address] CBC Collected: 05/29/2018 Status: F Source: [place] 8:21 AM [facility] REPOSITORY TYPE CODE TESTS RESULT OUT OF REFERENCE UNITS RANGE LAB WBC 3.70-11.00 k/uL WBC 5.84 LAB RBC 3.90-5.20 m/uL Low RBC 3.08 LAB HGB 11.5-15.5 g/dL Low Hemoglobin 9.0 LAB HCT 36.0-46.0 % Low Hematocrit 28.3 LAB MCV 80.0-100.0 fL MCV 91.9 LAB MCH 26.0-34.0 pG MCH 29.2 LAB MCHC 30.5-36.0 g/dL MCHC 31.8 LAB RDWCV 11.5-15.0 % RDW-CV High 15.8 LAB PLTCT 150-400 k/uL Platelet Count 291 LAB MPV 9.0-12.7 fL MPV 9.4 LAB ABSNUC <0.01 k/uL Absolute nRBC <0.01 Performed By: #### PT, CBC, BMP, MG1, PHOS #### [facility] [address] [id number] BASIC METABOLIC PANL Collected: 05/29/2018 Status: F Source: [place] 8:21 AM [facility] REPOSITORY TYPE CODE TESTS RESULT OUT OF REFERENCE UNITS RANGE LAB GLU 74-99 mg/dL High Glucose 199 Result Comment: The [place] [employer] (ADA) provides guidance for cutoff values for fasting glucose and random glucose. The ADA defines fasting as no caloric intake for at least 8 hours. Fas ting plasma glucose results between 100 to 125 mg/dL indicate increased risk for diabetes (prediabetes). Fasting plasma glucose results greater than or equal to 126 mg/dL meet the criteria for diagnosis of diabetes. In the absence of unequivocal hyperglycemia, results should be confirmed by repeat testing. In a patient with classic symptoms of hyperglycemia or hyperglycemic crisis, random plasma glucose results greater than or equal to 200 mg/dL meet the criteria for diagnosis of diabetes. Reference: Standards of Medical Care in Diabetes 2016, [place] [employer]. Diabetes Care. 2016.39(Suppl 1). LAB BUN 7-21 mg/dL BUN 7 LAB CRET 0.58-0.96 mg/dL Creatinine Low 0.53 LAB NA 136-144 mmol/L Sodium 139 LAB K 3.7-5.1 mmol/L Potassium Low 3.3 LAB CL 97-105 mmol/L Chloride 100 LAB CO2 22-30 mmol/L CO2 22 LAB AGAP 9-18 mmol/L Anion Gap 17 LAB CA 8.5-10.2 mg/dL Calcium, Low Total 8.2 LAB GFRAA eGFR- Amer. >60 LAB GFRNAA . eGFR-All Other Races >60 Result Comment: eGFR (Estimated GFR) Units of measure: mL/min/1.73 meters squared eGFR is derived from the reexpressed MDRD Study equation using the following parameters: serum creatinine, age, gender and race. The creatinine assay has been calibrated to be traceable to IDMS. An eGFR <60 mL/min/1.73m2 for >3 months is consistent with chronic kidney disease. Refer to KDOQI guidelines for clinical interpretation. In patients with unstable renal function, e.g. those with acute kidney injury, the eGFR may not accurately reflect actual GFR. Performed By: #### PT, CBC, BMP, MG1, PHOS #### [facility] [address] [address] MAGNESIUM Collected: 05/29/2018 Status: F Source: [place] 8:21 AM [facility] REPOSITORY TYPE CODE TESTS RESULT OUT OF REFERENCE UNITS RANGE LAB MG 1.7-2.3 mg/dL Low Magnesium 1.6 Performed By: #### PT, CBC, BMP, MG1, PHOS #### [facility] [address] [address] PHOSPHORUS Collected: 05/29/2018 Status: F Source: [place] 8:21 AM [facility] REPOSITORY TYPE CODE TESTS RESULT OUT OF REFERENCE UNITS RANGE LAB PHOS 2.7-4.8 mg/dL Low Phosphorus 2.0 Performed By: #### PT, CBC, BMP, MG1, PHOS #### [facility] [address] [address] PROGRESS Observed: 05/29/2018 Status: COMPLETED Source: [place] 6:19 AM [facility] REPOSITORY HNO ID: [id number] Author: Mehdi Clayton Service: General Surgery Author Type: Resident Type: Progress Notes Filed: 05/29/2018 6:58 AM Note Text: General Surgery Progress Note Service Date: May 29, 2018 Patient Name: Adri Goyal Assessment and Plan: Adri Goyal is a 57 year old female with history of multiple abdominal surgeries complicated by large incisional hernia now s/p bilateral TAR with mesh placement on 05/21. Remained intubated and admitted to SICU. Extubated on 05/22. Transferred to [facility] on 05/23. [facility] called on 05/26 for chest pain, tachycardia and increased O2 requirement: CT PE showed subacute on chronic PE, currently on Lovenox bridging to coumadin Neuro/Pain: Flexeril + PO pain meds. Continue home seroquel and cymbalta. Continue gabapentin Cardio/Resp: Continue incentive spirometry, NC PRN, attempt to wean off O2, Consult respiratory therapy. Will give a dose of Lasix. FEN/GI: LR @ 50cc/h. Replete Lytes. Diet: GISoft. Zofran available. Protonix 40 BID, Tums PRN Renal: Strict I/Os. Urine output adequate Heme/DVT PPx: ICDs. Appreciate vascular medicine recs, Lovenox 105 BID brdging with coumadin. Drains: continue JUVENTINO to bulb suction Wound/ID: No abx Endo: On SSI scale 3 Dispo: Continue [facility] Mehdi Clayton MD General Surgery, PGY-1 Pager: [phone] (Gen Surg Pager) May 29, 2018 6:19 AM Subjective: No acute events overnight. Having issues with heartburn with PO intake. Passing gas, and having BM Physical Exam: BP 121/65 Pulse 99 Temp 36.9 ?C (98.4 ?F) (Oral) Resp 18 Ht 177.8 cm (5' 10) Wt 113 kg (249 lb 1.9 oz) SpO2 98% BMI 35.74 kg/m? GENERAL/NEURO: Sedated HEENT: Normocephalic, Atraumatic CHEST: Unlabored breathing on RA ABDOMEN: Soft, mildly tender, mildly distended, Incision c/d/i, JPs yielding SS fluid EXTREMITIES: warm, well perfused Labs: CBC, Coags, BMP, Mg, Phos Recent Labs 05/28/18 1417 05/28/18 0659 05/27/18 1653 05/27/18 0611 05/26/18 2104 05/26/18 1827 WBC 7.25 5.87 -- 9.78 8.90 < > -- HB 10.5* 8.4* -- 10.3* 10.2* < > -- HCT 33.4* 26.7* -- 32.8* 32.9* < > -- PLT 347 267 -- 336 269 < > -- INR -- 1.0 1.0 -- -- -- -- APTT -- -- -- 51.8* -- -- -- NA -- 142 -- 138 139 -- -- K -- 3.7 -- 4.1 4.2 -- -- CHLOR -- 100 -- 99 98 -- -- CO2 -- 24 -- 25 24 -- -- BUN -- 9 -- 13 17 -- -- CREAT -- 0.55* -- 0.63 0.70 -- -- GLUC -- 146* -- 170* 185* -- -- IC -- -- -- -- -- -- 1.12 CA -- 8.0* -- 8.4* 8.1* -- -- MG -- 1.7 -- 2.0 -- -- -- P -- 2.3* -- 2.6* -- -- -- < > = values in this interval not displayed. Liver Function, Amylase, AND Lipase Recent Labs 05/26/18 1827 LACT 1.4 Intake and Output: Date 05/21/18 07 - 05/22/1859 05/22/18 07 - 05/23/18 0659 Shift 3603-6921 1106-3642 6708-9351 24 Hour Total 5500-0481 5685-8009 7063-8348 24 Hour Total I N T A K E IV 4050 891 4941 LR 150 707 857 OR Crystalloid intake (mL) 3900 3900 Propofol IV 184 184 Shift Total 4050 891 4941 O U T P U T Urine 450 395 845 OR Urine Output 160 160 Tube Output ( Indwelling Urinary Catheter 05/21/18 1145 Hong 16 Fr) 290 395 685 Tubes 205 220 425 Drain/Tube Output (Drain/Tube 05/21/18 1524 Socrates Harkins Left Upper Quadrant Drain #1) 40 50 90 Drain/Tube Output (Drain/Tube 05/21/18 1524 Socrates Harkins Left Lower Quadrant Abdomen Drain #2) 90 85 175 Drain/Tube Output (Drain/Tube 05/21/18 1621 Socrates Harkins Right Upper Quadrant Abdomen Drain #3) 20 15 35 Drain/Tube Output (Drain/Tube 05/21/18 1621 Socrates Harkins Right Lower Quadrant Abdomen Drain #4) 55 70 125 Blood 100 100 Estimated Blood loss 100 100 Shift Total 263 025 1068 Weight (kg) 110.7 110.7 110.7 110.7 110.7 110.7 Current Medications: Current hospital medications: acetaminophen 1,000 mg tab(s) (TYLENOL) 1,000 mg ORAL q 6 H aluminum-magnesium hydroxide-simethicone 200-200-20 mg/5 mL 30 mL (MAALOX,MYLANTA,MAG-AL PLUS) 30 mL ORAL q 6 H PRN aluminum-magnesium hydroxide-simethicone 200-200-20 mg/5 mL 30 mL (MAALOX,MYLANTA,MAG-AL PLUS) 30 mL ORAL q 6 H PRN amLODIPine 10 mg tab(s) (NORVASC) 10 mg ORAL DAILY calcium carbonate 500-1,000 mg chewable tab(s) (TUMS) 500- 1,000 mg ORAL TID PRN cyclobenzaprine 5 mg tab(s) (FLEXERIL) 5 mg ORAL TID PRN dextrose 40 % 15 g 15 g ORAL PRN dextrose 50 % 12.5 g injection 12.5 g INTRAVENOUS PRN diphenhydrAMINE 12.5 mg CUP (BENADRYL) 12.5 mg ORAL q 6 H PRN docusate sodium 100 mg cap(s) (COLACE) 100 mg ORAL BID docusate sodium 100 mg cap(s) (COLACE) 100 mg ORAL BID DULoxetine 60 mg cap(s) (CYMBALTA) 60 mg ORAL AT BEDTIME enoxaparin 105 mg injection (LOVENOX) 1 mg/kg/dose (Order-Specific) SUBCUTANEOUS q 12 HR gabapentin 300 mg cap(s) (NEURONTIN) 300 mg ORAL AT BEDTIME glucagon 1 mg injection (GLUCAGEN) 1 mg INTRAMUSCULAR PRN hydrALAZINE 5 mg injection (APRESOLINE) 5 mg INTRAVENOUS q 6 H PRN HYDROmorphone 0.2 mg injection (DILAUDID) 0.2 mg INTRAVENOUS q 3 H PRN insulin lispro injection (rapid acting) (HumaLOG) SUBCUTANEOUS w MEALS AND HS ipratropium-albuterol 3 mL nebulizer solution (DUONEB) 3 mL INHALATION q 4 H while awake lactated ringers infusion 50 mL/hr INTRAVENOUS CONTINUOUS losartan 50 mg tab(s) (COZAAR) 50 mg ORAL DAILY metoprolol tartrate (short acting) 12.5 mg tab(s) (LOPRESSOR) 12.5 mg ORAL q 12 H NaCl 0.9% 10 mL 10 mL INTRAVENOUS q 12 H NaCl 0.9% 20 mL 20 mL INTRAVENOUS PRN NaCl 0.9% 3-5 mL 3-5 mL INTRAVENOUS q 12 H ondansetron (PF) 4 mg injection (ZOFRAN) 4 mg INTRAVENOUS q 6 H PRN oxyCODONE IR 5-10 mg tab(s) (ROXICODONE) 5-10 mg ORAL q [address] 40 mg tab(s) (PROTONIX) 40 mg ORAL BID AC (0600/1600) polyethylene glycol 3350 17 g packet (MIRALAX, GLYCOLAX) 17 g ORAL DAILY QUEtiapine 100 mg tab(s) (SEROquel) 100 mg ORAL AT BEDTIME senna 8.6 mg tab(s) (SENOKOT) 8.6 mg ORAL BID warfarin order for discharge OTHER PRN Prior to Admission Medications: amLODIPine (NORVASC) 5 mg tablet Take 2 tablets by mouth every evening. DULoxetine (CYMBALTA) 60 mg capsule Take 1 capsule by mouth daily at bedtime. gabapentin (NEURONTIN) 100 mg capsule 300 mg daily at bedtime insulin aspart U-100 (NOVOLOG) 100 unit/mL inpn 15 units before meals + 2 u per 50 >200 TDD 75 units insulin glargine (BASAGLAR KWIKPEN U-100 INSULIN) 100 unit/mL (3 mL) inpn Inject 10 Units subcutaneously every 12 hours. 20 units sq twice daily Lancets lancets Use as instructed to test blood sugars 8 times daily E11.9 LANCETS REGULAR MISC 1 Each as directed. Use 6 x daily losartan (COZAAR) 50 mg tablet Take 1 tablet by mouth every evening. metoprolol succinate ER (TOPROL XL) 25 mg 24 hr tablet Take 1 tablet by mouth every evening. omeprazole (PRILOSEC) 20 mg capsule Take 1 capsule by mouth every evening. QUEtiapine (SEROQUEL) 100 mg tablet Take 1 tablet by mouth every evening. zolpidem (AMBIEN) 5 mg tablet Take 1 tablet by mouth at bedtime as needed (for insomnia.) for up to 180 days. aspirin, enteric coated (ASPIRIN, ENTERIC COATED) 81 mg EC tablet Take 1 tablet by mouth every evening. blood sugar diagnostic (ONETOUCH ULTRA TEST) test strip TEST BLOOD SUGAR 6 TO 8 TIMES DAILY Dx: E11.9 Insulin:yes Blood Sugar Diagnostic, Disc strp 1 Each as directed. CHECK BLOOD GLUCOSE EIGHT TIMES PER DAY/ Blood-Glucose Meter (Budding BiologistTOUCH ULTRA2) monitoring kit As directed cholecalciferol, Vitamin D3, (VITAMIN D3) 50,000 unit cap capsule Take 1 capsule by mouth once each week. Take with your largest meal of the day clonazePAM (KLONOPIN) 1 mg tablet Take 1 tablet by mouth daily at bedtime for 30 days. Diaper,Brief, Adult,Disposable (PREVAIL ADJUST UNDERWEAR SHABANA LARA) misc 1 Each as needed. Dx: N36.0, K58.9 enoxaparin (LOVENOX) 120 mg/0.8 mL injection Inject 0.7 mL subcutaneously every 12 hours for 10 days. estradiol (ESTRACE) 0.01 % (0.1 mg/gram) vaginal cream 1/2 inch of cream to lower vagina qhs twice weekly Fesoterodine (TOVIAZ) 8 mg Tb24 Take 1 tablet by mouth once daily. meloxicam (MOBIC) 15 mg tablet Take 1 tablet by mouth every evening. Multivits,CalciumAND Minerals-FA 267 mcg tab Take 1 tablet by mouth twice daily. Centrum Adult Chewables MVI with minerals is preferred; must be chewable pen needle, diabetic 33 gauge x 5/32 ndle 1 Each as directed. Use with injections 4x daily E11.9 potassium chloride (K-TAB) 10 mEq tablet Take 1 tablet by mouth twice daily. Patient Active Hospital Problem List: Ventral hernia without obstruction or gangrene (03/26/2018) Incisional hernia (05/21/2018) Ventral hernia (05/21/2018) Acute pulmonary embolism (HCC) (05/27/2018) CBC Collected: 05/28/2018 Status: F Source: [place] 2:17 PM [facility] REPOSITORY TYPE CODE TESTS RESULT OUT OF REFERENCE UNITS RANGE LAB WBC 3.70-11.00 k/uL WBC 7.25 LAB RBC 3.90-5.20 m/uL Low RBC 3.64 LAB HGB 11.5-15.5 g/dL Low Hemoglobin 10.5 LAB HCT 36.0-46.0 % Low Hematocrit 33.4 LAB MCV 80.0-100.0 fL MCV 91.8 LAB MCH 26.0-34.0 pG MCH 28.8 LAB MCHC 30.5-36.0 g/dL MCHC 31.4 LAB RDWCV 11.5-15.0 % RDW-CV High 15.9 LAB PLTCT 150-400 k/uL Platelet Count 347 LAB MPV 9.0-12.7 fL MPV 9.6 LAB ABSNUC <0.01 k/uL Absolute nRBC <0.01 Performed By: #### CBC #### [facility] [address] [id number] PT ED Observed: 05/28/2018 Status: COMPLETED Source: [place] 1:36 PM [facility] REPOSITORY HNO ID: [id number] Author: Rosa Joseph (Pharmacist) Service: Pharmacy Author Type: Pharmacist Type: Patient Education Filed: 05/29/2018 7:22 AM Note Text: PHARMACY WARFARIN EDUCATION Patient Name: Adri Goyal Account #: Data Unavailable Admission Date: 05/21/2018 9:27 AM Date of Contact: May 28, 2018 Time of Contact: 1:36 PM Patient new to warfarin? Yes Outpatient follow-up plan: Follow-up in Anticoagulation Clinic: [facility] ([phone]) Indication for warfarin: pulmonary embolus Target INR range: 2.0 - 3.0 (Target 2.5) Patient received full warfarin education. Initial patient education included: * Reason for taking warfarin * How warfarin works * What the INR test is, frequency of testing, and the importance of monitoring warfarin with scheduled PT/INR blood draws or finger sticks * Information about plans to monitor warfarin post-discharge was reviewed * When to take warfarin and what to do if a dose is missed * Identifying tablet(s) and to notify the doctor/anticoagulation clinic if there is a change in tablet color, shape, or markings * Drug interactions (Rx, OTC, herbal) and importance of notifying the doctor/anticoagulation clinic with any changes. * Do not take or discontinue any medication or over the counter medication except on the advice of the physician or pharmacist because certain medications can affect the PT/INR. * Potential duration of therapy * Signs/symptoms of bleeding and what to do if they occur because warfarin increases the risk of bleeding * Precautionary measures to decrease trauma/bleeding * Signs/symptoms of thrombosis and what to do if they occur * Need to limit or avoid EtOH consumption * Dietary considerations discussing that a ?consistent amount? of foods with vitamin K rather than avoidances should be advised and to avoid major changes in dietary habits, or notify health professional before changing habits because diet can affect the PT/INR * Carrying identification * Importance of notifying healthcare provider and [facility] when hospitalizations occur and when another healthcare provider has asked them to stop/hold warfarin before any procedure * Importance of notifying all healthcare providers they are taking warfarin * Use of control measures if applicable * The importance of taking warfarin as instructed and the potential ramifications of non- compliance were explained to the patient. The patient was provided ?Understanding the Anticoagulant Medication Warfarin? education booklet which includes the following : compliance Issues, dietary advice, follow-up with physician, follow- up monitoring, potential adverse drug reactions and interactions. READINESS TO LEARN COGNITIVE ABILITY: Alert and oriented MOTIVATION TO LEARN: Eager Interested FAMILY SUPPORT: High - Very involved in pt care INSTRUCTION PROVIDED TO: Patient PATIENT LEARNS BEST BY: Individual Instruction FACTORS AFFECTING LEARNING: None PHYSICAL LIMITATIONS AFFECTING LEARNING: None LEARNING RESPONSE DIAGNOSIS: SEE INDICATION(S) ABOVE PATIENT/FAMILY RESPONSE: Verbalizes understanding of: Accurate knowledge of prescribed medication prior to discharge. METHOD OF INSTRUCTION: Individual instruction SUPPLEMENTAL MATERIAL PROVIDED: Warfarin booklet: FURTHER RECOMMENDATIONS (if any) NA EVIDENCE OF LEARNING Outcomes met: Describes/able to restate information and Indicates understanding of topic Outcomes not met: N/A Outpatient Follow-up: [facility] ROSA JOSEPH PHARMACIST BRIGIDA Collected: 05/28/2018 Status: F Source: [place] 6:59 AM [facility] RE[facility] TYPE CODE TESTS RESULT OUT OF RANGE REFERENCE UNITS LAB PSEC 9.7-13.0 sec PT Sec 10.3 LAB INR 0.9-1.3 PT INR 1.0 Result Comment: Vitamin K Antagonist (VKA) Therapeutic Range: INR 2 to 3 (Target INR of 2.5) Note: For patients treated with VKA drugs, such as warfarin, the [place] [employer] 2012 Guideline recommends a therapeutic INR range of 2 to 3 (target INR of 2.5). This recommendation includes high-risk patients with antiphospholipid syndrome with previous arterial or venous thromboembolism, current-generation mechanical or bioprosthetic aortic heart valve replacement. Note: Patients with mechanical aortic valve replacement and additional risk factors for thromboembolic events (atrial fibrillation, previous thromboembolism, LV dysfunction, hypercoagulable conditions) or an older generation mechanical AVR (i.e., ball in-Cage) or any mechanical MVR should have a INR therapeutic range of 2.5 to 3.5 (target INR of 3). David GH, et al. Chest 2012, 141:7S-47S Gurpreet RA, et al. [facility] 2017, 70: 252-289 Performed By: #### PT, CBC, BMP, MG1, PHOS #### [facility] [address] [place], [place] [address] CBC Collected: 05/28/2018 Status: F Source: [place] 6:59 AM [facility] REPOSITORY TYPE CODE TESTS RESULT OUT OF REFERENCE UNITS RANGE LAB WBC 3.70-11.00 k/uL WBC 5.87 LAB RBC 3.90-5.20 m/uL Low RBC 2.97 LAB HGB 11.5-15.5 g/dL Low Hemoglobin 8.4 LAB HCT 36.0-46.0 % Low Hematocrit 26.7 LAB MCV 80.0-100.0 fL MCV 89.9 LAB MCH 26.0-34.0 pG MCH 28.3 LAB MCHC 30.5-36.0 g/dL MCHC 31.5 LAB RDWCV 11.5-15.0 % RDW-CV High 15.8 LAB PLTCT 150-400 k/uL Platelet Count 267 LAB MPV 9.0-12.7 fL MPV 9.3 LAB ABSNUC <0.01 k/uL Absolute nRBC <0.01 Performed By: #### PT, CBC, BMP, MG1, PHOS #### [facility] [address] [place], [place] [address] BASIC METABOLIC PANL Collected: 05/28/2018 Status: F Source: [place] 6:59 AM [facility] REPOSITORY TYPE CODE TESTS RESULT OUT OF REFERENCE UNITS RANGE LAB GLU 74-99 mg/dL High Glucose 146 Result Comment: The [place] [employer] (ADA) provides guidance for cutoff values for fasting glucose and random glucose. The ADA defines fasting as no caloric intake for at least 8 hours. Fas ting plasma glucose results between 100 to 125 mg/dL indicate increased risk for diabetes (prediabetes). Fasting plasma glucose results greater than or equal to 126 mg/dL meet the criteria for diagnosis of diabetes. In the absence of unequivocal hyperglycemia, results should be confirmed by repeat testing. In a patient with classic symptoms of hyperglycemia or hyperglycemic crisis, random plasma glucose results greater than or equal to 200 mg/dL meet the criteria for diagnosis of diabetes. Reference: Standards of Medical Care in Diabetes 2016, [place] [employer]. Diabetes Care. 2016.39(Suppl 1). LAB BUN 7-21 mg/dL BUN 9 LAB CRET 0.58-0.96 mg/dL Creatinine Low 0.55 LAB NA 136-144 mmol/L Sodium 142 LAB K 3.7-5.1 mmol/L Potassium 3.7 LAB CL 97-105 mmol/L Chloride 100 LAB CO2 22-30 mmol/L CO2 24 LAB AGAP 9-18 mmol/L Anion Gap 18 LAB CA 8.5-10.2 mg/dL Calcium, Low Total 8.0 LAB GFRAA eGFR- Amer. >60 LAB GFRNAA . eGFR-All Other Races >60 Result Comment: eGFR (Estimated GFR) Units of measure: mL/min/1.73 meters squared eGFR is derived from the reexpressed MDRD Study equation using the following parameters: serum creatinine, age, gender and race. The creatinine assay has been calibrated to be traceable to IDMS. An eGFR <60 mL/min/1.73m2 for >3 months is consistent with chronic kidney disease. Refer to KDOQI guidelines for clinical interpretation. In patients with unstable renal function, e.g. those with acute kidney injury, the eGFR may not accurately reflect actual GFR. Performed By: #### PT, CBC, BMP, MG1, PHOS #### [facility] [address] [place], [place] [address] MAGNESIUM Collected: 05/28/2018 Status: F Source: [place] 6:59 AM [facility] REPOSITORY TYPE CODE TESTS RESULT OUT OF REFERENCE UNITS RANGE LAB MG 1.7-2.3 mg/dL Magnesium 1.7 Performed By: #### PT, CBC, BMP, MG1, PHOS #### [facility] [address] [place], [place] [id number] PHOSPHORUS Collected: 05/28/2018 Status: F Source: [place] 6:59 AM [facility] REPOSITORY TYPE CODE TESTS RESULT OUT OF REFERENCE UNITS RANGE LAB PHOS 2.7-4.8 mg/dL Low Phosphorus 2.3 Performed By: #### PT, CBC, BMP, MG1, PHOS #### [facility] [address], [place] [address] CONSULT PROG Observed: 05/28/2018 Status: COMPLETED Source: [place] 6:48 AM [facility] REPOSITORY HNO ID: [id number] Author: Melina Agarwal) JESSICA Magallon Service: Vascular Medicine Author Type: Physician Programs Assistant Type: Consult Progress Note Filed: 05/28/2018 2:50 PM Note Text: VASCMED CONSULT PROGRESS NOTE Subjective Follow Up Regarding: PE INTERVAL HPI and PERTINENT ROS: No acute overnight events. SOB improved today, oxygen requirement decreased now on 3L NC. Appetite is low but eating. She will try to increase today. No nausea or vomiting. Denies chest pain or clinical signs of bleeding. +BM Hb.4<<<10.3, repeating this afternoon Platelets: 267 Creatinine: 0.55 INR:1.0 Estimated Creatinine Clearance: 157.5 mL/min (A) (based on SCr of 0.55 mg/dL (L)). Current Facility-Administered Medications: acetaminophen 1,000 mg tab(s) (TYLENOL) 1,000 mg ORAL q 6 H aluminum-magnesium hydroxide-simethicone 200-200-20 mg/5 mL 30 mL (MAALOX,MYLANTA,MAG-AL PLUS) 30 mL ORAL q 6 H PRN amLODIPine 10 mg tab(s) (NORVASC) 10 mg ORAL DAILY calcium carbonate 500-1,000 mg chewable tab(s) (TUMS) 500- 1,000 mg ORAL TID PRN cyclobenzaprine 5 mg tab(s) (FLEXERIL) 5 mg ORAL TID PRN dextrose 40 % 15 g 15 g ORAL PRN Or glucagon 1 mg injection (GLUCAGEN) 1 mg INTRAMUSCULAR PRN Or dextrose 50 % 12.5 g injection 12.5 g INTRAVENOUS PRN diphenhydrAMINE 12.5 mg CUP (BENADRYL) 12.5 mg ORAL q 6 H PRN docusate sodium 100 mg cap(s) (COLACE) 100 mg ORAL BID DULoxetine 60 mg cap(s) (CYMBALTA) 60 mg ORAL AT BEDTIME enoxaparin 105 mg injection (LOVENOX) 1 mg/kg/dose (Order-Specific) SUBCUTANEOUS q 12 HR gabapentin 300 mg cap(s) (NEURONTIN) 300 mg ORAL AT BEDTIME hydrALAZINE 5 mg injection (APRESOLINE) 5 mg INTRAVENOUS q 6 H PRN HYDROmorphone 0.2 mg injection (DILAUDID) 0.2 mg INTRAVENOUS q 3 H PRN insulin lispro injection (rapid acting) (HumaLOG) SUBCUTANEOUS w MEALS AND HS ipratropium-albuterol 3 mL nebulizer solution (DUONEB) 3 mL INHALATION q 4 H while awake lactated ringers infusion 50 mL/hr INTRAVENOUS CONTINUOUS losartan 50 mg tab(s) (COZAAR) 50 mg ORAL DAILY metoprolol tartrate (short acting) 12.5 mg tab(s) (LOPRESSOR) 12.5 mg ORAL q 12 H NaCl 0.9% 10 mL 10 mL INTRAVENOUS q 12 H NaCl 0.9% 20 mL 20 mL INTRAVENOUS PRN NaCl 0.9% 3-5 mL 3-5 mL INTRAVENOUS q 12 H ondansetron (PF) 4 mg injection (ZOFRAN) 4 mg INTRAVENOUS q 6 H PRN oxyCODONE IR 5-10 mg tab(s) (ROXICODONE) 5-10 mg ORAL q [address] 40 mg tab(s) (PROTONIX) 40 mg ORAL BID AC (0600/1600) polyethylene glycol 3350 17 g packet (MIRALAX, GLYCOLAX) 17 g ORAL DAILY QUEtiapine 100 mg tab(s) (SEROquel) 100 mg ORAL AT BEDTIME senna 8.6 mg tab(s) (SENOKOT) 8.6 mg ORAL BID warfarin order for discharge OTHER PRN Objective PHYSICAL EXAM: BP 132/67 Pulse 98 Temp 36.6 ?C (97.8 ?F) (Oral) Resp 18 Ht 177.8 cm (5' 10) Wt 113 kg (249 lb 1.9 oz) SpO2 98% BMI 35.74 kg/m? General: alert AND oriented x3, NAD Neck: supple Cardiac: RRR, no murmur Respiratory: CTA anteriorly, 3LNC Abdominal/GI: diffuse tenderness, JUVENTINO drains serosanguinous, binder in place Extremity: mild LE swelling Skin: warm, dry Pulse/vascular exam: bilateral +2 radial/ulnar/dp/pt DATA: Diagnostic tests reviewed for today's visit: Most recent labs and imaging results. CBC, Coags, BMP, Mg, Phos Recent Labs 05/28/18 0659 05/27/18 1653 05/27/18 0611 05/26/18 2104 05/26/18 1827 05/26/18 0311 WBC 5.87 -- 9.78 8.90 -- 7.56 HB 8.4* -- 10.3* 10.2* -- 9.9* HCT 26.7* -- 32.8* 32.9* -- 31.5* PLT 267 -- 336 269 -- 306 INR 1.0 1.0 -- -- -- -- APTT -- -- 51.8* -- -- -- NA 142 -- 138 139 -- 137 K 3.7 -- 4.1 4.2 -- 4.2 CHLOR 100 -- 99 98 -- 97 CO2 24 -- 25 24 -- 26 BUN 9 -- 13 17 -- 19 CREAT 0.55* -- 0.63 0.70 -- 1.02* GLUC 146* -- 170* 185* -- 171* IC -- -- -- -- 1.12 -- CA 8.0* -- 8.4* 8.1* -- 8.2* MG 1.7 -- 2.0 -- -- 2.9* P 2.3* -- 2.6* -- -- 2.1* Impression/Recommendations 57 year old female with PMH of multiple abdominal surgeries, DM, GERD, HTN, obesity s/p gastric bypass found to have provoked PE on chest CT in the setting of?bilateral myofasical flap with mesh repair on 05/21/[address] Jones for large incisional hernia. Biomarkers were negative. No evidence of right heart strain on CT. LE venous duplex negative. She was started on IV UFH, difficult peripheral sticks for accurate aPTT's transitioned to Lovenox. Patient is on soft diet and tolerating. Platelets normal. No clinical signs of bleeding. Estimated Creatinine Clearance: 137.5 mL/min (based on SCr of 0.63 mg/dL). Lovenox to coumadin bridge commenced 05/27/2018. Drop in hemoglobin today, discussed with primary team. No clinical signs of bleeding, may be 2/2 fluid overload. Will repeat CBC. Plan discussed with Michell Webster MD: _Continue Lovenox 105mg BID to Coumadin bridge _Day 2 Coumadin: INR 1.0 (INR target 2.0-3.0) _Will give Coumadin 2.5mg x 1 tonight _Lovenox and Coumadin should overlap for a minimum of 5 days and until INR is therapeutic x 24 hrs before Lovenox can be discontinued. _Monitor for bleeding _Daily CBC/platelet, creatinine, INR in the AM _10-day supply Lovenox $0.00 co-pay _Awaiting return call from PCP in regards to monitoring coumadin at discharge -patient not to be discharged from a vascular medicine standpoint until plan in place _Duration: at least 3 months for situational VTE _Will schedule follow up with closer to discharge _Following Addendum: Dr. Leon Jimenez PCP will act as referring physician to [facility]. Appointments have been made pending discharge: -Ibrahima Sarkar NP 06/03 @ 1:20pm [facility] 06/02 @ 3:45pm JESSICA Pérez 2:50 PM SIGNATURE: JESSICA Pérez PATIENT NAME: Adri Goyal DATE: May 28, 2018 TIME: 9:52 AM PAGER/CONTACT #: [phone] . PROGRESS Observed: 05/28/2018 Status: COMPLETED Source: [place] 5:56 AM [facility] REPOSITORY HNO ID: [id number] Author: Mehdi Clayton Service: General Surgery Author Type: Resident Type: Progress Notes Filed: 05/28/2018 6:43 AM Note Text: General Surgery Progress Note Service Date: May 28, 2018 Patient Name: Adri Goyal Assessment and Plan: Adri Goyal is a 57 year old female with history of multiple abdominal surgeries complicated by large incisional hernia now s/p bilateral TAR with mesh placement on 05/21. Remained intubated and admitted to SICU. Extubated on 05/22. Transferred to [facility] on 05/23. AMET called on 05/26 for chest pain, tachycardia and increased O2 requirement: CT PE showed subacute on chronic PE, was started on hep gtt. Neuro/Pain: Flexeril + PO pain meds. Continue home seroquel and cymbalta. Continue gabapentin Cardio/Resp: Continue incentive spirometry, NC PRN, attempt to wean off O2, Consult respiratory therapy FEN/GI: LR @ 50cc/h. Replete Lytes. Diet: GISoft. Zofran available. Protonix 40 BID, Tums PRN Renal: Strict I/Os. Urine output adequate Heme/DVT PPx: ICDs. Appreciate vascular medicine recs, Lovenox 105 BID brdging with coumadin. Drains: continue JUVENTINO to bulb suction Wound/ID: No abx Endo: On SSI scale 3 Dispo: Continue RNF Mehdi Clayton MD General Surgery, PGY-1 Pager: [phone] (Gen Surg Pager) May 28, 2018 5:59 AM Subjective: No acute events overnight. Having issues with heartburn. Passing gas, and had liquid bowel movement. Physical Exam: BP 132/67 Pulse 98 Temp 36.6 ?C (97.8 ?F) (Oral) Resp 18 Ht 177.8 cm (5' 10) Wt 113 kg (249 lb 1.9 oz) SpO2 98% BMI 35.74 kg/m? GENERAL/NEURO: Sedated HEENT: Normocephalic, Atraumatic CHEST: Unlabored breathing on RA ABDOMEN: Soft, mildly tender, mildly distended, Incision c/d/i, JPs yielding SS fluid EXTREMITIES: warm, well perfused Labs: CBC, Coags, BMP, Mg, Phos Recent Labs 05/27/18 1653 05/27/18 0611 05/26/18 2104 05/26/18 1827 05/26/18 0311 05/25/18 0602 WBC -- 9.78 8.90 -- 7.56 6.56 HB -- 10.3* 10.2* -- 9.9* 9.9* HCT -- 32.8* 32.9* -- 31.5* 31.0* PLT -- 336 269 -- 306 291 INR 1.0 -- -- -- -- -- APTT -- 51.8* -- -- -- -- NA -- 138 139 -- 137 137 K -- 4.1 4.2 -- 4.2 4.1 CHLOR -- 99 98 -- 97 97 CO2 -- 25 24 -- 26 25 BUN -- 13 17 -- 19 13 CREAT -- 0.63 0.70 -- 1.02* 0.86 GLUC -- 170* 185* -- 171* 176* IC -- -- -- 1.12 -- -- CA -- 8.4* 8.1* -- 8.2* 8.4* MG -- 2.0 -- -- 2.9* 2.9* P -- 2.6* -- -- 2.1* 1.7* Liver Function, Amylase, AND Lipase Recent Labs 05/26/18 1827 LACT 1.4 Intake and Output: Date 05/21/18 0700 - 05/22/18 0659 05/22/18 0700 - 05/23/18 0659 Shift 8291-5111 7931-3263 2570-7260 24 Hour Total 2531-7100 5843-1789 8992-4475 24 Hour Total I N T A K E IV 4050 891 4941 LR 150 707 857 OR Crystalloid intake (mL) 3900 3900 Propofol IV 184 184 Shift Total 4050 891 4941 O U T P U T Urine 450 395 845 OR Urine Output 160 160 Tube Output ( Indwelling Urinary Catheter 05/21/18 1145 Hong 16 Fr) 290 395 685 Tubes 205 220 425 Drain/Tube Output (Drain/Tube 05/21/18 1524 Socrates Harkins Left Upper Quadrant Drain #1) 40 50 90 Drain/Tube Output (Drain/Tube 05/21/18 1524 Socrates Harkins Left Lower Quadrant Abdomen Drain #2) 90 85 175 Drain/Tube Output (Drain/Tube 05/21/18 1621 Socrates Harkins Right Upper Quadrant Abdomen Drain #3) 20 15 35 Drain/Tube Output (Drain/Tube 05/21/18 1621 Socrates Harkins Right Lower Quadrant Abdomen Drain #4) 55 70 125 Blood 100 100 Estimated Blood loss 100 100 Shift Total 602 871 3891 Weight (kg) 110.7 110.7 110.7 110.7 110.7 110.7 Current Medications: Current hospital medications: acetaminophen 1,000 mg tab(s) (TYLENOL) 1,000 mg ORAL q 6 H amLODIPine 10 mg tab(s) (NORVASC) 10 mg ORAL DAILY calcium carbonate 500-1,000 mg chewable tab(s) (TUMS) 500- 1,000 mg ORAL TID PRN cyclobenzaprine 5 mg tab(s) (FLEXERIL) 5 mg ORAL TID PRN dextrose 40 % 15 g 15 g ORAL PRN dextrose 50 % 12.5 g injection 12.5 g INTRAVENOUS PRN diphenhydrAMINE 12.5 mg CUP (BENADRYL) 12.5 mg ORAL q 6 H PRN docusate sodium 100 mg cap(s) (COLACE) 100 mg ORAL BID DULoxetine 60 mg cap(s) (CYMBALTA) 60 mg ORAL AT BEDTIME enoxaparin 105 mg injection (LOVENOX) 1 mg/kg/dose (Order-Specific) SUBCUTANEOUS q 12 HR gabapentin 300 mg cap(s) (NEURONTIN) 300 mg ORAL AT BEDTIME glucagon 1 mg injection (GLUCAGEN) 1 mg INTRAMUSCULAR PRN hydrALAZINE 5 mg injection (APRESOLINE) 5 mg INTRAVENOUS q 6 H PRN HYDROmorphone 0.2 mg injection (DILAUDID) 0.2 mg INTRAVENOUS q 3 H PRN insulin lispro injection (rapid acting) (HumaLOG) SUBCUTANEOUS w MEALS AND HS ipratropium-albuterol 3 mL nebulizer solution (DUONEB) 3 mL INHALATION q 4 H while awake lactated ringers infusion 50 mL/hr INTRAVENOUS CONTINUOUS losartan 50 mg tab(s) (COZAAR) 50 mg ORAL DAILY metoprolol tartrate (short acting) 12.5 mg tab(s) (LOPRESSOR) 12.5 mg ORAL q 12 H NaCl 0.9% 10 mL 10 mL INTRAVENOUS q 12 H NaCl 0.9% 20 mL 20 mL INTRAVENOUS PRN NaCl 0.9% 3-5 mL 3-5 mL INTRAVENOUS q 12 H ondansetron (PF) 4 mg injection (ZOFRAN) 4 mg INTRAVENOUS q 6 H PRN oxyCODONE IR 5-10 mg tab(s) (ROXICODONE) 5-10 mg ORAL q [address] 40 mg tab(s) (PROTONIX) 40 mg ORAL BID AC (0600/1600) polyethylene glycol 3350 17 g packet (MIRALAX, GLYCOLAX) 17 g ORAL DAILY QUEtiapine 100 mg tab(s) (SEROquel) 100 mg ORAL AT BEDTIME senna 8.6 mg tab(s) (SENOKOT) 8.6 mg ORAL BID warfarin order for discharge OTHER PRN Prior to Admission Medications: amLODIPine (NORVASC) 5 mg tablet Take 2 tablets by mouth every evening. DULoxetine (CYMBALTA) 60 mg capsule Take 1 capsule by mouth daily at bedtime. gabapentin (NEURONTIN) 100 mg capsule 300 mg daily at bedtime insulin aspart U-100 (NOVOLOG) 100 unit/mL inpn 15 units before meals + 2 u per 50 >200 TDD 75 units insulin glargine (BASAGLAR KWIKPEN U-100 INSULIN) 100 unit/mL (3 mL) inpn Inject 10 Units subcutaneously every 12 hours. 20 units sq twice daily Lancets lancets Use as instructed to test blood sugars 8 times daily E11.9 LANCETS REGULAR MISC 1 Each as directed. Use 6 x daily losartan (COZAAR) 50 mg tablet Take 1 tablet by mouth every evening. metoprolol succinate ER (TOPROL XL) 25 mg 24 hr tablet Take 1 tablet by mouth every evening. omeprazole (PRILOSEC) 20 mg capsule Take 1 capsule by mouth every evening. QUEtiapine (SEROQUEL) 100 mg tablet Take 1 tablet by mouth every evening. zolpidem (AMBIEN) 5 mg tablet Take 1 tablet by mouth at bedtime as needed (for insomnia.) for up to 180 days. aspirin, enteric coated (ASPIRIN, ENTERIC COATED) 81 mg EC tablet Take 1 tablet by mouth every evening. blood sugar diagnostic (Virtugo SoftwareUCH ULTRA TEST) test strip TEST BLOOD SUGAR 6 TO 8 TIMES DAILY Dx: E11.9 Insulin:yes Blood Sugar Diagnostic, Disc strp 1 Each as directed. CHECK BLOOD GLUCOSE EIGHT TIMES PER DAY/ Blood-Glucose Meter (ONETOUCH ULTRA2) monitoring kit As directed cholecalciferol, Vitamin D3, (VITAMIN D3) 50,000 unit cap capsule Take 1 capsule by mouth once each week. Take with your largest meal of the day clonazePAM (KLONOPIN) 1 mg tablet Take 1 tablet by mouth daily at bedtime for 30 days. Diaper,Brief, Adult,Disposable (PREVAIL ADJUST UNDERWEAR SHABANA LARA) misc 1 Each as needed. Dx: N36.0, K58.9 enoxaparin (LOVENOX) 120 mg/0.8 mL injection Inject 0.7 mL subcutaneously every 12 hours for 10 days. estradiol (ESTRACE) 0.01 % (0.1 mg/gram) vaginal cream 1/2 inch of cream to lower vagina qhs twice weekly Fesoterodine (TOVIAZ) 8 mg Tb24 Take 1 tablet by mouth once daily. meloxicam (MOBIC) 15 mg tablet Take 1 tablet by mouth every evening. Multivits,CalciumAND Minerals-FA 267 mcg tab Take 1 tablet by mouth twice daily. Centrum Adult Chewables MVI with minerals is preferred; must be chewable pen needle, diabetic 33 gauge x 5/32 ndle 1 Each as directed. Use with injections 4x daily E11.9 potassium chloride (K-TAB) 10 mEq tablet Take 1 tablet by mouth twice daily. Patient Active Hospital Problem List: Ventral hernia without obstruction or gangrene (03/26/2018) Incisional hernia (05/21/2018) Ventral hernia (05/21/2018) Acute pulmonary embolism (HCC) (05/27/2018) NURSING PROG Observed: 05/27/2018 Status: COMPLETED Source: [place] 5:15 PM [facility] RE[facility] HNO ID: [id number] Author: Tahira (Rn) FERNIE Wiley Service: (none) Author Type: Registered Nurse Type: Nursing Progress Note Filed: 05/27/2018 6:10 PM Note Text: Nursing Progress Note Patient Name: Adri Goyal Patient Location: H071 001/H071-01 Daily Note: Patient stating heartburn is unbearable and is asking for something other than tums. Notified Dr. Clayton. This note was completed by: Tahira Wiley RN PROTIME Collected: 05/27/2018 Status: F Source: [place] 4:53 PM [facility] [place] REPOSITORY TYPE CODE TESTS RESULT OUT OF RANGE REFERENCE UNITS LAB PSEC 9.7-13.0 sec PT Sec 10.2 LAB INR 0.9-1.3 PT INR 1.0 Result Comment: Vitamin K Antagonist (VKA) Therapeutic Range: INR 2 to 3 (Target INR of 2.5) Note: For patients treated with VKA drugs, such as warfarin, the [place] [employer] 2012 Guideline recommends a therapeutic INR range of 2 to 3 (target INR of 2.5). This recommendation includes high-risk patients with antiphospholipid syndrome with previous arterial or venous thromboembolism, current-generation mechanical or bioprosthetic aortic heart valve replacement. Note: Patients with mechanical aortic valve replacement and additional risk factors for thromboembolic events (atrial fibrillation, previous thromboembolism, LV dysfunction, hypercoagulable conditions) or an older generation mechanical AVR (i.e., ball in-Cage) or any mechanical MVR should have a INR therapeutic range of 2.5 to 3.5 (target INR of 3). David VARGHESE, et al. Chest 2012, 141:7S-47S Gurpreet RA, et al. [facility] 2017, 70: 252-289 Performed By: #### PT #### [facility] [address] [place], [place] [address] NUTRITION Observed: 05/27/2018 Status: COMPLETED Source: [place] 2:24 PM [facility] REPOSITORY HNO ID: [id number] Author: Lesly Wynn (Diet-T) Service: Nutrition Therapy Author Type: Hat Liner Type: Nutrition Filed: 05/27/2018 2:26 PM Note Text: NUTRITION THERAPY FOLLOW-UP NOTE SERVICE DATE: 05/27/2018 SERVICE TIME: 1055 Anthropometrics: Height: 177.8 cm (5' 10) Current Weight: Weight: 113 kg (249 lb 1.9 oz) Body mass index is 35.74 kg/m?. Loss of lean body mass/visual muscle wasting: no Admitting Diagnosis: Ventral hernia without obstruction or gangrene [K43.9] Present Diet Order: Gastrointestinal GISoft Is the patient having any pain that is interfering with oral/enteral intake? No Allergies: ALLERGIES Allergen Reactions - Bactrim [Sulfametho* Other: See Comments Cardiac issues, CIPRO IV only - Cipro I.V. [Ciprofl* Hives, Shortness of Breath - Dimetapp [Pseudoeph* Vomiting violently ill when overdosed on it as child - Erythromycin hives ok with zithromax - Keflex [Cephalexin] OK to give zosyn per MD 06-28-06 - Latex Rash rash, breaks out everywhere, n/v , feels weak Can still eat food that is considered for latex allergies No allergic to latex foods per patient [facility] 05/07/11 - Tetracycline hives Reason for Visit: Nutrition screen: LOS > 6 days Nutrient intake assessment: Current intake of meals: 0 Patient concerns/Issues: the patient diet was just advanced. The patient states she was eating fine prior to admit. She did eat this am. Snacks were declined. Supplements of G2 were pended. Diet education for gi soft was declined. Will continue to monitor. Education needs: Readiness to learn: No/patient declines and Patient provided with diet education materials to review before education is completed Nursing Admission Assessment Malnutrition Score Tool: 0 Plan of Care: Recommendation No problems noted at this time. Will screen again within 7 days Discharge Plan: Gi soft MNT Billing Type: Routine Care/15 min 1 unit SIGNATURE: Lesly Wynn DTR CD PATIENT NAME: Adri Goyal DATE: May 27, 2018 TIME: 2:24 PM PAGER: [phone] PT ED Observed: 05/27/2018 Status: COMPLETED Source: [place] 2:23 PM [facility] REPOSITORY [facility] ID: [id number] Author: Lesly Wynn (Diet-T) Service: Nutrition Therapy Author Type: Hat Liner Type: Patient Education Filed: 05/27/2018 2:24 PM Note Text: NUTRITION PATIENT EDUCATION TOPIC: Survival Skills: Diet PATIENT NAME: Adri Goyal SERVICE DATE: May 27, 2018 Diagnosis: ADULT: ventral hernia with obstruction or gangrene EXEMPTION FROM DIET EDUCATION Patient/family refusal of diet education due to receipt of previous instructions Supplemental Material Provided to Patient: Nutrition Therapy instruction material: Eating Right and Avoiding Dehydration after Bowel Surgery Referral (Recommendation): Nutrition - Outpatient MNT Billing Type: Routine Care/15 min 1 unit Lesly Wynn DTR CDM Pager: [phone] May 27, 2018 2:23 PM CASE MANAGEM Observed: 05/27/2018 Status: COMPLETED Source: [place] 1:24 PM [facility] REPOSITORY HNO ID: [id number] Author: Alia GonzalezRn) FERNIE Corbin Service: Care Management Author Type: Registered Nurse Type: Care Mgt Progress Note Filed: 05/27/2018 1:29 PM Note Text: CARE MANAGEMENT PROGRESS NOTE SERVICE DATE: 05/27/2018 SERVICE TIME: 1:30pm LOS: 6 days AMET called on 05/26 for chest pain, tachycardia and increased O2 requirement: CT PE showed subacute on chronic PE, was started on hep gtt. Possible d/c needs Lovenox and pt may need a desat study. SIGNATURE: Alia Corbin RN PATIENT NAME: Adri Goyal DATE: May 27, 2018 TIME: 1:27 PM PAGER/CONTACT #: [phone] PLAN OF CARE Observed: 05/27/2018 Status: COMPLETED Source: [place] 12:48 PM [facility] REPOSITORY HNO ID: [id number] Author: Barbra Krueger (Hydrochloric Manufacturing Supervisor) Service: (none) Author Type: (none) Type: Plan of Care Filed: 05/27/2018 12:51 PM Note Text: LOCOMOTIVE REPAIRER DIESEL BEDSIDE DELIVERY SURVEY 1. Patient to use [facility] Bedside Delivery - YES DILLARD CHECK 2. If fax, patient would like us to fax prescriptions to Pharmacy of choice a. Pharmacy: b. Location: c. Phone: 3. Insurance card on file - YES 4. Credit card for payment - N/A DILLARD CHECK FOR ENOXAPARIN 120MG/0.8ML 20 SYRINGES/ 10 DAY SUPPLY CO-PAY AMT $0.00. THERAPY NT Observed: 05/27/2018 Status: COMPLETED Source: [place] 12:02 PM [facility] REPOSITORY HNO ID: [id number] Author: Margret Pink) Jose Service: Occupational Therapy Author Type: Mission Assessment Specialist Type: Therapy (PT/OT/Speech/Resp) Filed: 05/27/2018 12:12 PM Note Text: Attestation signed by ROCIO Cano at 05/27/2018 12:49 PM I reviewed and agree with the documentation corresponding to this therapy visit. SIGNATURE: ROCIO Cano DATE: May 27, 2018 TIME: 12:49 PM Occupational Therapy Treatment SERVICE DATE: 05/27/2018 SERVICE TIME: 848 to 928 ROOM: [place] [address] Recommended Discharge Disposition: Home Recommended Discharge Disposition Comments: with 24 hr assist Anticipated Discharge Needs: Physical Assist at Home Physical Assist at Home for: Cleaning;Laundry;Meals Recommended Discharge Equipment: ADL Kit OT Recommendations to Nursing: ADL?s in chair;OOB for meals;Transfer to Chair;With assist of 1 person (progress to bathroom as able with WR) OT 6 Clicks Score: 18 Precautions/Activity Restrictions: Abdominal;Lines/Tubes/Drains Precaution/Activity Restriction Comments: Binder ASSESSMENT: Patient presents with c/o increase ABD during adl transfers and unable to perform le adls post instructions. Pt education on ABD precautions with all functional activities/mobility. Pt rated pain 8/10 with OOB activities. Pt able reported her daughters are able to A as needed. Recommended use of hip kit. 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 Patient Disposition at Start of Session: Supine in Bed;Call Olguin in Reach;Bed Alarm;SCDs Patient Disposition at End of Session: Supine in Bed;Call Olguin in Reach;Bed Alarm;SCDs Tolerated Full Session Occupational Therapy Problem List: Education Deficit;Pain;Impaired Self Care;Decreased Activity Tolerance;Decreased Strength;Functional Mobility Impairment Patient /Caregiver Goals: Go Home;Care For Self Goals for Plan of Care: Upper Body Bathing with: Minimal Assistance Upper Body Dressing with: Minimal Assistance Lower Body Bathing with: Minimal Assistance Lower Body Dressing with: Minimal Assistance Toilet Hygiene with: Modified Independent Chair Transfer with: Supervision Demonstrate Positive Coping Strategies with: Independent Demonstrate Competence With Education with: Independent Progress Toward Goals: Progressing as expected Rehab Potential: Good PLAN: Treatment Frequency (times per week): 2 Treatment Interventions: Education;Self Care / Home Management;Energy Conservation Training;Functional Mobility Training Plan of Care developed with: Patient TREATMENT INTERVENTIONS: Therapy Diagnosis: Reduced mobility-other;Decreased activities of daily living (ADL) Interventions Provided: Self Prison Management (00455) Self Prison Management (21809) Treatment Minutes: 40 3 units Skilled Intervention(s): Pt education on role/benefits of OT and reviewed goals/POC/dc recommendations. Instructed pt on ABD precautions, positioning, safety, body mechanics, energy conservation/work simplification, use of AE, DME. Pt education on use of AE/DME for le adls and lower level functional activities. Provided pt with verbal cues in stance at sink for grooming task. Pt MOD I toilet hygiene post cues for technique seated Provided instruction, cuing and facilitation for upper body dressing seated EOB Provided instruction for lower body dressing/bahting with AE for adherence of ABD precautions. Pt unable to perform task post instructions due to c/o increase ABD pain. Recommended AE for le adls. Instructed patient in log roll technique, supine <--> sit pushing with upper extremities using safe, effective technique and good body mechanics within ABD precautions. HOB elevated for transitioning to/from edge of bed. Recommended use of bed wedge at home. Instruction in sit to stand technique with proper hand placement and body positioning at edge of bed/toilet Instruction in stand to sit technique with lower extremities touching toilet/bed and reaching back for surface for controlled descend Education for adl transfer/chair transfer/functional mobility with IV Pole, cues for hand placement, safety, posture, balance and pacing. Total Timed Code Treatment Minutes: 40 Total Treatment Time (minutes): 40 FUNCTIONAL G CODE: OT 6 Clicks Score: 18 (05/27/18 2906) Self Care Current Status (G8987): CK (05/24/18 1010) Self Care Goal Status (G8988): CJ (05/24/18 1010) Based on clinical assessment and the score on the 6 Clicks Functional Assessment Tool, the G code and corresponding severity modifiers are documented above. SUBJECTIVE: Current Hospital Course: Chart reviewed and no significant medical updates relevant to therapy were noted Reason for Occupational Therapy Consult: Safety, ADLs Relevant Past Medical History: Multiple abdominal sx. DM. HTN. IBS Patient Report: I am having so much pain. Home Environment Patient Lives With: Significant Other Assistance Available: 24 Hour Entry To Home: No Stairs Number Of Stairs To Bed/Bath: 0 Prior Functional Level: (Spouse assists with some dressing - bra and socks) OBJECTIVE: Cognition/Communication Deficits Responsiveness: Alert;Awake Follows Commands: 3-step Commands Cognitive Clinical Tests and Screens: (Cognition WF) Clock Draw Test: 2-Normal Word Recall: 3-recalled words Mini Cog Score: 5 CURRENT FUNCTIONAL STATUS: Current Activities of Daily Living Assist Level Feeding Independent Grooming Verbal Cues Only (Standing) Bathing Upper Body Supervision Bathing Lower Body Dressing Upper Body Stand By Assistance Dressing Lower Body Total Assistance Toileting Modified Independent Instrumental Activities of Daily Living Assist Level Meal/Beverage Prep Light Cleaning Laundry Medication Management with Strategies Functional Mobility Assist Level Rolling Minimal Assistance Supine to Sit Moderate Assistance Sit to Supine Moderate Assistance Scooting Verbal Cues Only Sit to Stand Stand By Assistance Stand to Sit Stand By Assistance Bed to Chair Stand By Assistance Wheeled Walker Toilet/Commode Stand By Assistance Functional Mobility Stand By Assistance IV Pole Balance: Dynamic Standing Dynamic Standing Balance: Contact Guard Assistance Activity Tolerance: Standing Activity;Sitting Activity Sitting Activity: ADLs in chair Sitting Activity Tolerance (in minutes): 20 Standing Activity: 5 Please see discipline specific clinical documentation flowsheet for complete details for this therapy evaluation/treatment. SIGNATURE: MARY JO Camejo PATIENT NAME: Adri Goyal DATE: May 27, 2018 TIME: 12:02 PM CONSULT Observed: 05/27/2018 Status: COMPLETED Source: [place] 10:14 AM [facility] REPOSITORY HNO ID: [id number] Author: Michell Webster Service: Vascular Medicine Author Type: Physician Type: Consults Filed: 05/27/2018 4:31 PM Note Text: VASCULAR MEDICINE INITIAL CONSULT SERVICE DATE: 05/27/2018 SERVICE TIME: PE Subjective CHIEF COMPLAINT: Incisional hernia HPI: This is a 57 year old female who presents with history of multiple abdominal surgeries c/b large incisional hernia now s/p bilateral myofasical flap with mesh repair on 05/21/[address] Jones. She has a PMH of DM type I, GERD, HTN, migraines, depression on cymbalta and obesity s/p gastric bypass with reversal ~2002, uterine/cervical CA s/p hysterectomy c/b necrotizing fascitis 2004. Transferred to [facility] on 05/23. AMET was called yesterday for chest pain, tachycardia and increased oxygen requirements. CT chest PE obtained which showed pulmonary embolism within the anterior segmental/subsegmental artery of the left upper lobe and apico-posterior segmental/subsegmental artery of the left upper lobe. Cardiac biomarkers negative. EKG showed sinus tachycardia with possible anteriory MD (age undetermined). No right heart strain on CT chest. Currently on 6L NC. Patient was started on IV UFH by standard nomogram by primary team. Vascular medicine consulted for home going anticoagulation management. She denies any personal/family VTE history. Has history of requiring at least 20 transfusion over her surgical history (X47 surgical history). Last transfusion ~4 years ago. No history of GI bleed. No thrombophilia's to report. Currently endorses chest pain with swallowing. SOB stable. Still on 6L nasal cannula. Denies any clinical issue with bleeding. Notes bilateral LE swelling since surgery. On soft diet. Up to date on cancer screenings. PAST MEDICAL HISTORY Diagnosis Date - Abdominal pain, generalized CHRONIC PAIN MANAGEMENT - Bacterial overgrowth syndrome - Bowel disease - Depressive disorder, not elsewhere classified on cymbalta - Diabetes mellitus (HCC) 1980s on insulin since 1982 - Fracture - GERD (gastroesophageal reflux disease) resolved since 2004 - HTN (hypertension) resolved since 2004 - Incisional hernia without mention of obstruction or gangrene - Irritable bowel syndrome - Necrotizing fasciitis (HCC) - Obesity, unspecified 05-23-10 STATED BMI 35.91 Ht: 70 Wt: 250 lbs - Open wound of abdominal wall, anterior, complicated 1 - PMH - PAST MEDICAL HISTORY OF irritable bowel syndrome, necrotizing fasciitis, hypertension, diabetes, GERD, gastritis, - PMH - PAST MEDICAL HISTORY OF 09/2009 left foot break - RSD lower limb seen by pain management PAST SURGICAL HISTORY Procedure Laterality Date - ARTHROS SHLDR DX W/WO SYNV BX Right 05/03/2017 Right shoulder arthroscopy, glenoid chondroplasty - FEEDING TUBE-SPECIFY J-tube - GASTRIC BYPASS, LION-EN-Y 04/27/11 - HYSTERECTOMY HX 2003 - MIDLINE INSERTION/CONSULT 05/25/2018 - PAST SURGICAL HISTORY OF colostomy, partial colectomy,OSMAR/BSO, right hand tendon rplaced, fatty tumor excision back and thigh,ulnar nreve surgery bilaterally, tonsillectomy - PAST SURGICAL HISTORY OF 2005 repair of fistulas - PAST SURGICAL HISTORY OF 2005 translupe colostomy - PAST SURGICAL HISTORY OF 2004 debredement due to necratizing fascitis - PAST SURGICAL HISTORY OF 2004 hysterectomy - PAST SURGICAL HISTORY OF STATES > 113 ABDOMINAL SURGERIES - PAST SURGICAL HISTORY OF resversal of colostomy - PAST SURGICAL HISTORY OF 10/2015 hernia repair/abdominal muscle repair - REPAIR COMPL ROTATOR CUFF AVULSN,CHR Right 05/03/2017 Glenoid chondroplasty, labtral debridement, SAD - TONSILLECTOMY HX 1977 FAMILY HISTORY: Mother: No VTE history or CA history, maternal grandfather kidney/liver Father: NO VTE history, +colon cancer Siblings: yes believe +brother colon cancer SOCIAL HISTORY: Smoking: No Drink alcohol: no : yes Children: yes healthy amLODIPine (NORVASC) 5 mg tablet Take 2 tablets by mouth every evening. DULoxetine (CYMBALTA) 60 mg capsule Take 1 capsule by mouth daily at bedtime. gabapentin (NEURONTIN) 100 mg capsule 300 mg daily at bedtime insulin aspart U-100 (NOVOLOG) 100 unit/mL inpn 15 units before meals + 2 u per 50 >200 TDD 75 units insulin glargine (BASAGLAR KWIKPEN U-100 INSULIN) 100 unit/mL (3 mL) inpn Inject 10 Units subcutaneously every 12 hours. 20 units sq twice daily Lancets lancets Use as instructed to test blood sugars 8 times daily E11.9 LANCETS REGULAR MISC 1 Each as directed. Use 6 x daily losartan (COZAAR) 50 mg tablet Take 1 tablet by mouth every evening. metoprolol succinate ER (TOPROL XL) 25 mg 24 hr tablet Take 1 tablet by mouth every evening. omeprazole (PRILOSEC) 20 mg capsule Take 1 capsule by mouth every evening. QUEtiapine (SEROQUEL) 100 mg tablet Take 1 tablet by mouth every evening. zolpidem (AMBIEN) 5 mg tablet Take 1 tablet by mouth at bedtime as needed (for insomnia.) for up to 180 days. aspirin, enteric coated (ASPIRIN, ENTERIC COATED) 81 mg EC tablet Take 1 tablet by mouth every evening. blood sugar diagnostic (ONETOUCH ULTRA TEST) test strip TEST BLOOD SUGAR 6 TO 8 TIMES DAILY Dx: E11.9 Insulin:yes Blood Sugar Diagnostic, Disc strp 1 Each as directed. CHECK BLOOD GLUCOSE EIGHT TIMES PER DAY/ Blood-Glucose Meter (Budding BiologistTOUCH ULTRA2) monitoring kit As directed cholecalciferol, Vitamin D3, (VITAMIN D3) 50,000 unit cap capsule Take 1 capsule by mouth once each week. Take with your largest meal of the day clonazePAM (KLONOPIN) 1 mg tablet Take 1 tablet by mouth daily at bedtime for 30 days. Diaper,Brief, Adult,Disposable (PREVAIL ADJUST UNDERWEAR HSABANA LARA) misc 1 Each as needed. Dx: N36.0, K58.9 enoxaparin (LOVENOX) 120 mg/0.8 mL injection Inject 0.7 mL subcutaneously every 12 hours for 10 days. estradiol (ESTRACE) 0.01 % (0.1 mg/gram) vaginal cream 1/2 inch of cream to lower vagina qhs twice weekly Fesoterodine (TOVIAZ) 8 mg Tb24 Take 1 tablet by mouth once daily. meloxicam (MOBIC) 15 mg tablet Take 1 tablet by mouth every evening. Multivits,CalciumAND Minerals-FA 267 mcg tab Take 1 tablet by mouth twice daily. Centrum Adult Chewables MVI with minerals is preferred; must be chewable pen needle, diabetic 33 gauge x 5/32 ndle 1 Each as directed. Use with injections 4x daily E11.9 potassium chloride (K-TAB) 10 mEq tablet Take 1 tablet by mouth twice daily. Current Facility-Administered Medications: acetaminophen 1,000 mg tab(s) (TYLENOL) 1,000 mg ORAL q 6 H amLODIPine 10 mg tab(s) (NORVASC) 10 mg ORAL DAILY calcium carbonate 500-1,000 mg chewable tab(s) (TUMS) 500- 1,000 mg ORAL TID PRN cyclobenzaprine 5 mg tab(s) (FLEXERIL) 5 mg ORAL TID PRN dextrose 40 % 15 g 15 g ORAL PRN Or glucagon 1 mg injection (GLUCAGEN) 1 mg INTRAMUSCULAR PRN Or dextrose 50 % 12.5 g injection 12.5 g INTRAVENOUS PRN diphenhydrAMINE 12.5 mg CUP (BENADRYL) 12.5 mg ORAL q 6 H PRN docusate sodium 100 mg cap(s) (COLACE) 100 mg ORAL BID DULoxetine 60 mg cap(s) (CYMBALTA) 60 mg ORAL AT BEDTIME enoxaparin 105 mg injection (LOVENOX) 1 mg/kg/dose (Order-Specific) SUBCUTANEOUS q 12 HR gabapentin 300 mg cap(s) (NEURONTIN) 300 mg ORAL AT BEDTIME hydrALAZINE 5 mg injection (APRESOLINE) 5 mg INTRAVENOUS q 6 H PRN HYDROmorphone 0.2 mg injection (DILAUDID) 0.2 mg INTRAVENOUS q 3 H PRN influenza vaccine 60 mcg (Patients 3 to 64 years) (PF) (FLUZONE ) 0.5 mL INTRAMUSCULAR ONCE (IMMUNIZATION) insulin lispro injection (rapid acting) (HumaLOG) SUBCUTANEOUS w MEALS AND HS ipratropium-albuterol 3 mL nebulizer solution (DUONEB) 3 mL INHALATION q 4 H while awake lactated ringers infusion 50 mL/hr INTRAVENOUS CONTINUOUS losartan 50 mg tab(s) (COZAAR) 50 mg ORAL DAILY metoprolol tartrate (short acting) 12.5 mg tab(s) (LOPRESSOR) 12.5 mg ORAL q 12 H NaCl 0.9% 10 mL 10 mL INTRAVENOUS q 12 H NaCl 0.9% 20 mL 20 mL INTRAVENOUS PRN NaCl 0.9% 3-5 mL 3-5 mL INTRAVENOUS q 12 H ondansetron (PF) 4 mg injection (ZOFRAN) 4 mg INTRAVENOUS q 6 H PRN oxyCODONE IR 5-10 mg tab(s) (ROXICODONE) 5-10 mg ORAL q [address] 40 mg tab(s) (PROTONIX) 40 mg ORAL BID AC (0600/1600) phosphorus 500 mg tab(s) (K PHOS NEUTRAL) 500 mg ORAL PC and HS polyethylene glycol 3350 17 g packet (MIRALAX, GLYCOLAX) 17 g ORAL DAILY QUEtiapine 100 mg tab(s) (SEROquel) 100 mg ORAL AT BEDTIME senna 8.6 mg tab(s) (SENOKOT) 8.6 mg ORAL BID ALLERGIES Allergen Reactions - Bactrim [Sulfametho* Other: See Comments Cardiac issues, CIPRO IV only - Cipro I.V. [Ciprofl* Hives, Shortness of Breath - Dimetapp [Pseudoeph* Vomiting violently ill when overdosed on it as child - Erythromycin hives ok with zithromax - Keflex [Cephalexin] OK to give zosyn per MD 06-28-06 - Latex Rash rash, breaks out everywhere, n/v , feels weak Can still eat food that is considered for latex allergies No allergic to latex foods per patient [facility] 05/07/11 - Tetracycline hives CANCER SCREENING QUESTIONS: Colon cancer colonoscopy screening done? Yes, 2-3 years ago Mammogram screening done? Yes, 2 months ago Pap Smear screening done? Yest, 1 year ago Objective REVIEW OF SYSTEMS: GENERAL: Fever: No Chills: No Night sweats: No Changes in weight: No NEUROLOGICAL: Headaches: No Seizures: No Passing out: No Numbness, tingling or sensation of pins and needles: No HEAD, EYES, EARS, NOSE, AND THROAT: Changes in hearing: No Changes in vision: No Nose bleeds: No CARDIOVASCULAR: Chest pain or pressure: No Palpitations: No Irregular heart rate: No RESPIRATORY: Cough: No Wheezing: No Shortness of breath: Some Shortness of breath with exertion: Some Coughing up blood: No GASTROINTESTINAL: Abdominal discomfort: YES Nausea: Some Vomiting: No Diarrhea: No Constipation: No Difficulty swallowing: YES Pain with swallowing: No, Yes Stomach pain after eating: Some Passing blood with bowel movement: No Black tarry stool: No GENITOURINARY: Pain with urination: No Blood in urine: No MONITORING COORDINATOR: Abnormal vaginal bleeding: No History of loss: No EXTREMITY: Edema (swelling): Some Pain with walking: No MUSCULOSKELETAL: Joint pain: No Joint swelling: No Back pain: Some Muscle pain or ache: No SKIN: Rash: No Lesions: No Sores: No Ulcers: No Tenderness: No Skin cancer: No HEMATOLOGY: Easy bruising: No Blood transfusions: YES PSYCHOLOGICAL: Do you ever feel blue or nervous: Some, on Cymbalta OTHER: none PHYSICAL EXAM: Vital Signs: BP 116/63 Pulse 94 Temp 36.7 ?C (98 ?F) (Oral) Resp 18 Ht 177.8 cm (5' 10) Wt 113 kg (249 lb 1.9 oz) SpO2 98% BMI 35.74 kg/m? General: alert AND oriented x3, NAD, on 6L nasal Neck: supple Cardiac: RRR, no murmur Respiratory: CTA anteriorly Abdominal/GI: diffusely tender, in binder, +3 drains serosanguinous Extremity: mild LE swelling, UE bruising at blood draw sites Skin: warm, dry Pulse/vascular exam: +2 radial/ulnar/DP/PT DATA: Diagnostic tests reviewed for today's visit: Most recent labs and imaging results. CBC, Coags, BMP, Mg, Phos Recent Labs 05/27/18 0611 05/26/18 2104 05/26/18 1827 05/26/18 0311 05/25/18 0602 WBC 9.78 8.90 -- 7.56 6.56 HB 10.3* 10.2* -- 9.9* 9.9* HCT 32.8* 32.9* -- 31.5* 31.0* PLT 336 269 -- 306 291 APTT 51.8* -- -- -- -- NA 138 139 -- 137 137 K 4.1 4.2 -- 4.2 4.1 CHLOR 99 98 -- 97 97 CO2 25 24 -- 26 25 BUN 13 17 -- 19 13 CREAT 0.63 0.70 -- 1.02* 0.86 GLUC 170* 185* -- 171* 176* IC -- -- 1.12 -- -- CA 8.4* 8.1* -- 8.2* 8.4* MG 2.0 -- -- 2.9* 2.9* P 2.6* -- -- 2.1* 1.7* Component Latest Ref Rng AND Units 05/26/2018 CK 42 - 196 U/L 663 (H) MB <4.3 ng/mL 4.1 CK MB % 0.0 - 4.0 % 0.6 Troponin T 0.000 - 0.029 ng/mL <0.010 Component Latest Ref Rng AND Units 05/23/2018 Protein, Total 6.3 - 8.0 g/dL 5.8 (L) Albumin 3.9 - 4.9 g/dL 3.4 (L) Calcium 8.5 - 10.2 mg/dL 7.6 (L) Bilirubin, Total 0.2 - 1.3 mg/dL 1.5 (H) Alkaline Phosphatase 34 - 123 U/L 60 AST 13 - 35 U/L 62 (H) Glucose 74 - 99 mg/dL 183 (H) BUN 7 - 21 mg/dL 9 Creatinine 0.58 - 0.96 mg/dL 0.61 Sodium 136 - 144 mmol/L 136 Potassium 3.7 - 5.1 mmol/L Unable to assay. Specimen significantly hemolyzed. Chloride 97 - 105 mmol/L 103 CO2 22 - 30 mmol/L 23 Anion Gap 9 - 18 mmol/L 10 ALT 7 - 38 U/L 29 eGFR- >60 eGFR-All Other Races . >60 05/26/2018 CT chest PE IMPRESSION: 1. ?The study is positive for pulmonary thromboemboli as described. 2. ?There are bilateral pleural effusions, right greater than left, with associated dependent airspace opacities in both lower lobes most commonly secondary to nonspecific atelectasis. 3. . There is a hiatal hernia. ?The intrathoracic esophagus is mildly distended and fluid-filled. ?Sequelae of a motility disorder such as GERD must be considered. Evaluation for thromboembolic disease: ?? ? - Right heart chambers: ?No thromboembolic disease. ?? ? - Main pulmonary arteries: ?No thromboembolic disease. ?? ? - Lobar pulmonary arteries: ?No thromboembolic disease. ?? ? - Segmental/subsegmental pulmonary arteries: There is an intraluminal filling defect in the anterior segmental artery of the left upper lobe (image 86) with probable extension into subsegmental arteries. ?Filling defects are also suspected in the distal apico-posterior segmental artery of the left upper lobe extending into subsegmental arteries (images 62-72). ?? ? - Subsegmental pulmonary arteries: ?See above. ?No additional subsegmental pulmonary thrombi visualized, given limitations. Impression/Recommendations 57 year old female with PMH of multiple abdominal surgeries, DM, GERD, HTN, obesity s/p gastric bypass found to have provoked PE on chest CT in the setting of bilateral myofasical flap with mesh repair on 05/21/[address] Jones for large incisional hernia. Biomarkers were negative. No evidence of right heart strain on CT. She was started on IV UFH, difficult peripheral sticks for accurate aPTT's. She is now POD#6 and primary team ready for homegoing anticoagulation recommendations. Discussed lovenox and okay with transitioning due to difficulty with blood draws. Hemoglobin anemic but stable. Platelets normal. No clinical signs of bleeding. Estimated Creatinine Clearance: 137.5 mL/min (based on SCr of 0.63 mg/dL). Patient is on soft diet and tolerating. Recommendations discussed with Michell Webster MD: _Transition to Lovenox 105mg every 12 hours -Discontinue IV UFH 1 hour after first injection -orders complete _Recommend LE Venous duplex -ordered by primary team _Given patient in acute post operative setting and history of gastric bypass, would not recommend DOAC _Homegoing AC choice would be coumadin, will start bridge tonight -Will give Coumadin 2.5mg x 1 -Lovenox and Coumadin should overlap for a minimum of 5 days and until INR is therapeutic x 24 hrs before lovenox can be discontinued. _Daily CBC/platelet, INR, creatinine in the AM _Continue to monitor for bleeding _Please check on [facility] for Lovenox 120mg syringes for 1-day supply to make sure affordable option if patient is medically cleared before discharge to complete bridge as an outpatient _Will contact PCP for monitoring _Discussed plan with primary team _Following Dr. Webster to make additional comments and recommendations SIGNATURE: JESSICA Pérez PATIENT NAME: Adri Goyal DATE: May 27, 2018 TIME: 10:14 AM PAGER/CONTACT #: [phone] . [facility] STAFF PHYSICIAN NOTE OF PERSONAL INVOLVEMENT IN CARE I have reviewed the note obtained and documented by the PA and I personally participated in the palomo components. I have discussed the case and management of the patient's care. The following comments revise or confirm relevant palomo components of the note. As event was provoked, please consider 3-6 month anticoagulation course, patient to be evaluated prior to discontinuation of anticoagulation at the end of the therapeutic course. Michell Webster MD PROGRESS Observed: 05/27/2018 Status: COMPLETED Source: [place] 6:33 AM [facility] REPOSITORY HNO ID: [id number] Author: Mehdi Clayton Service: General Surgery Author Type: Resident Type: Progress Notes Filed: 05/27/2018 6:38 AM Note Text: General Surgery Progress Note Service Date: May 27, 2018 Patient Name: Adri Goyal Assessment and Plan: Adri Goyal is a 57 year old female with history of multiple abdominal surgeries complicated by large incisional hernia now s/p bilateral TAR with mesh placement on 05/21. Remained intubated and admitted to SICU. Extubated on 05/22. Transferred to [facility] on 05/23. AMET called on 05/26 for chest pain, tachycardia and increased O2 requirement: CT PE showed subacute on chronic PE, was started on hep gtt. 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 Continue home seroquel and cymbalta. Continue gabapentin Cardio/Resp: Incentive spirometry, Wean off O2 FEN/GI: LR @ 50cc/h. Replete Lytes. Diet: GISoft. Zofran available. Protonix 40 BID, Tums PRN Renal: Strict I/Os. Urine output inadequate, give 500cc NS Heme/DVT PPx: ICDs, Hep gtt Drains: continue JUVENTINO to bulb suction, Right drain placed on top of mesh was removed today Wound/ID: No abx Endo: On SSI Dispo: Continue [facility] Mehdi Clayton MD General Surgery, PGY-1 Pager: [phone] (Gen Surg Pager) May 27, 2018 6:33 AM Subjective: Had an episode of chest pain yesterday, no acute events overnight. Having issues with heartburn. Passing gas, no BM. Physical Exam: BP 130/66 Pulse 101 Temp 37 ?C (98.6 ?F) (Oral) Resp 18 Ht 177.8 cm (5' 10) Wt 113 kg (249 lb 1.9 oz) SpO2 97% BMI 35.74 kg/m? GENERAL/NEURO: Sedated HEENT: Normocephalic, Atraumatic CHEST: Unlabored breathing on RA ABDOMEN: Soft, moderately tender, mildly distended, Incision c/d/i, JPs yielding SS fluid EXTREMITIES: warm, well perfused Labs: CBC, Coags, BMP, Mg, Phos Recent Labs 05/26/18 2104 05/26/18 1827 05/26/18 0311 05/25/18 0602 WBC 8.90 -- 7.56 6.56 HB 10.2* -- 9.9* 9.9* HCT 32.9* -- 31.5* 31.0* PLT 269 -- 306 291 NA 139 -- 137 137 K 4.2 -- 4.2 4.1 CHLOR 98 -- 97 97 CO2 24 -- 26 25 BUN 17 -- 19 13 CREAT 0.70 -- 1.02* 0.86 GLUC 185* -- 171* 176* IC -- 1.12 -- -- CA 8.1* -- 8.2* 8.4* MG -- -- 2.9* 2.9* P -- -- 2.1* 1.7* Liver Function, Amylase, AND Lipase Recent Labs 05/26/18 1827 LACT 1.4 Intake and Output: Date 05/21/18 0700 - 05/22/18 0659 05/22/18 0700 - 05/23/18 0659 Shift 0211-9510 8284-4026 4270-9282 24 Hour Total 9213-2911 8270-3814 9976-2472 24 Hour Total I N T A K E IV 4050 891 4941 LR 150 707 857 OR Crystalloid intake (mL) 3900 3900 Propofol IV 184 184 Shift Total 4050 891 4941 O U T P U T Urine 450 395 845 OR Urine Output 160 160 Tube Output ( Indwelling Urinary Catheter 05/21/18 1145 Hong 16 Fr) 290 395 685 Tubes 205 220 425 Drain/Tube Output (Drain/Tube 05/21/18 1524 Socrates Harkins Left Upper Quadrant Drain #1) 40 50 90 Drain/Tube Output (Drain/Tube 05/21/18 1524 Socratse Harkins Left Lower Quadrant Abdomen Drain #2) 90 85 175 Drain/Tube Output (Drain/Tube 05/21/18 1621 Socrates Harkins Right Upper Quadrant Abdomen Drain #3) 20 15 35 Drain/Tube Output (Drain/Tube 05/21/18 1621 Socrates Harkins Right Lower Quadrant Abdomen Drain #4) 55 70 125 Blood 100 100 Estimated Blood loss 100 100 Shift Total 108 349 3819 Weight (kg) 110.7 110.7 110.7 110.7 110.7 110.7 Current Medications: Current hospital medications: HYDROmorphone 0.2 mg injection (DILAUDID) 0.2 mg INTRAVENOUS q [address] 40 mg tab(s) (PROTONIX) 40 mg ORAL BID AC (0600/1600) insulin lispro injection (rapid acting) (HumaLOG) SUBCUTANEOUS w MEALS AND HS senna 8.6 mg tab(s) (SENOKOT) 8.6 mg ORAL BID oxyCODONE IR 5-10 mg tab(s) (ROXICODONE) 5-10 mg ORAL q 3 H PRN ipratropium-albuterol 3 mL nebulizer solution (DUONEB) 3 mL INHALATION q 4 H while awake iv contrast (radiology procedure) INTRAVENOUS DIRECTED PRN iv contrast (radiology procedure) INTRAVENOUS DIRECTED PRN heparin iv infusion (STANDARD NOMOGRAM) 25,000 units in NaCl 0.45% 250 mL PREMIX 0-3,000 Units/hr INTRAVENOUS CONTINUOUS heparin RATE CHANGE bolus 1,000-10,000 Units for subtherapeutic aptt results 1,000-10,000 Units INTRAVENOUS PRN NaCl 0.9% 10 mL 10 mL INTRAVENOUS q 12 H NaCl 0.9% 20 mL 20 mL INTRAVENOUS PRN cyclobenzaprine 5 mg tab(s) (FLEXERIL) 5 mg ORAL TID PRN diphenhydrAMINE 12.5 mg CUP (BENADRYL) 12.5 mg ORAL q 6 H PRN amLODIPine 10 mg tab(s) (NORVASC) 10 mg ORAL DAILY losartan 50 mg tab(s) (COZAAR) 50 mg ORAL DAILY acetaminophen 1,000 mg tab(s) (TYLENOL) 1,000 mg ORAL q 6 H metoprolol tartrate (short acting) 12.5 mg tab(s) (LOPRESSOR) 12.5 mg ORAL q 12 H DULoxetine 60 mg cap(s) (CYMBALTA) 60 mg ORAL AT BEDTIME gabapentin 300 mg cap(s) (NEURONTIN) 300 mg ORAL AT BEDTIME mupirocin 2% 0.5 g nasal ointment (BACTROBAN) 0.5 g NASAL BID QUEtiapine 100 mg tab(s) (SEROquel) 100 mg ORAL AT BEDTIME lactated ringers infusion 50 mL/hr INTRAVENOUS CONTINUOUS docusate sodium 100 mg cap(s) (COLACE) 100 mg ORAL BID ondansetron (PF) 4 mg injection (ZOFRAN) 4 mg INTRAVENOUS q 6 H PRN hydrALAZINE 5 mg injection (APRESOLINE) 5 mg INTRAVENOUS q 6 H PRN NaCl 0.9% 3-5 mL 3-5 mL INTRAVENOUS q 12 H dextrose 40 % 15 g 15 g ORAL PRN glucagon 1 mg injection (GLUCAGEN) 1 mg INTRAMUSCULAR PRN dextrose 50 % 12.5 g injection 12.5 g INTRAVENOUS PRN Prior to Admission Medications: gabapentin (NEURONTIN) 100 mg capsule 300 mg daily at bedtime metoprolol succinate ER (TOPROL XL) 25 mg 24 hr tablet Take 1 tablet by mouth every evening. losartan (COZAAR) 50 mg tablet Take 1 tablet by mouth every evening. amLODIPine (NORVASC) 5 mg tablet Take 2 tablets by mouth every evening. insulin glargine (BASAGLAR KWIKPEN U-100 INSULIN) 100 unit/mL (3 mL) inpn Inject 10 Units subcutaneously every 12 hours. 20 units sq twice daily omeprazole (PRILOSEC) 20 mg capsule Take 1 capsule by mouth every evening. QUEtiapine (SEROQUEL) 100 mg tablet Take 1 tablet by mouth every evening. zolpidem (AMBIEN) 5 mg tablet Take 1 tablet by mouth at bedtime as needed (for insomnia.) for up to 180 days. insulin aspart U-100 (NOVOLOG) 100 unit/mL inpn 15 units before meals + 2 u per 50 >200 TDD 75 units DULoxetine (CYMBALTA) 60 mg capsule Take 1 capsule by mouth daily at bedtime. Lancets lancets Use as instructed to test blood sugars 8 times daily E11.9 LANCETS REGULAR MISC 1 Each as directed. Use 6 x daily Fesoterodine (TOVIAZ) 8 mg Tb24 Take 1 tablet by mouth once daily. aspirin, enteric coated (ASPIRIN, ENTERIC COATED) 81 mg EC tablet Take 1 tablet by mouth every evening. meloxicam (MOBIC) 15 mg tablet Take 1 tablet by mouth every evening. estradiol (ESTRACE) 0.01 % (0.1 mg/gram) vaginal cream 1/2 inch of cream to lower vagina qhs twice weekly clonazePAM (KLONOPIN) 1 mg tablet Take 1 tablet by mouth daily at bedtime for 30 days. potassium chloride (K-TAB) 10 mEq tablet Take 1 tablet by mouth twice daily. Diaper,Brief, Adult,Disposable (PREVAIL ADJUST UNDERWEAR SHABANA LARA) misc 1 Each as needed. Dx: N36.0, K58.9 blood sugar diagnostic (ONETOUCH ULTRA TEST) test strip TEST BLOOD SUGAR 6 TO 8 TIMES DAILY Dx: E11.9 Insulin:yes Blood-Glucose Meter (ONETOUCH ULTRA2) monitoring kit As directed pen needle, diabetic 33 gauge x 5/32 ndle 1 Each as directed. Use with injections 4x daily E11.9 cholecalciferol, Vitamin D3, (VITAMIN D3) 50,000 unit cap capsule Take 1 capsule by mouth once each week. Take with your largest meal of the day Multivits,CalciumAND Minerals-FA 267 mcg tab Take 1 tablet by mouth twice daily. Centrum Adult Chewables MVI with minerals is preferred; must be chewable Blood Sugar Diagnostic, Disc strp 1 Each as directed. CHECK BLOOD GLUCOSE EIGHT TIMES PER DAY/ Patient Active Hospital Problem List: Ventral hernia without obstruction or gangrene (03/26/2018) Incisional hernia (05/21/2018) Ventral hernia (05/21/2018) CBC Collected: 05/27/2018 Status: F Source: [place] 6:11 AM [facility] REPOSITORY TYPE CODE TESTS RESULT OUT OF REFERENCE UNITS RANGE LAB WBC 3.70-11.00 k/uL WBC 9.78 LAB RBC 3.90-5.20 m/uL Low RBC 3.64 LAB HGB 11.5-15.5 g/dL Low Hemoglobin 10.3 LAB HCT 36.0-46.0 % Low Hematocrit 32.8 LAB MCV 80.0-100.0 fL MCV 90.1 LAB MCH 26.0-34.0 pG MCH 28.3 LAB MCHC 30.5-36.0 g/dL MCHC 31.4 LAB RDWCV 11.5-15.0 % RDW-CV High 15.5 LAB PLTCT 150-400 k/uL Platelet Count 336 LAB MPV 9.0-12.7 fL MPV 9.6 LAB ABSNUC <0.01 k/uL Absolute High nRBC 0.02 Performed By: #### CBC, BMP, MG1, PHOS #### [facility] [address] [place], [place] [address] BASIC METABOLIC PANL Collected: 05/27/2018 Status: F Source: [place] 6:11 AM [facility] REPOSITORY TYPE CODE TESTS RESULT OUT OF REFERENCE UNITS RANGE LAB GLU 74-99 mg/dL High Glucose 170 Result Comment: The [place] [employer] (ADA) provides guidance for cutoff values for fasting glucose and random glucose. The ADA defines fasting as no caloric intake for at least 8 hours. Fas ting plasma glucose results between 100 to 125 mg/dL indicate increased risk for diabetes (prediabetes). Fasting plasma glucose results greater than or equal to 126 mg/dL meet the criteria for diagnosis of diabetes. In the absence of unequivocal hyperglycemia, results should be confirmed by repeat testing. In a patient with classic symptoms of hyperglycemia or hyperglycemic crisis, random plasma glucose results greater than or equal to 200 mg/dL meet the criteria for diagnosis of diabetes. Reference: Standards of Medical Care in Diabetes 2016, [place] [employer]. Diabetes Care. 2016.39(Suppl 1). LAB BUN 7-21 mg/dL BUN 13 LAB CRET 0.58-0.96 mg/dL Creatinine 0.63 LAB NA 136-144 mmol/L Sodium 138 LAB K 3.7-5.1 mmol/L Potassium 4.1 LAB CL 97-105 mmol/L Chloride 99 LAB CO2 22-30 mmol/L CO2 25 LAB AGAP 9-18 mmol/L Anion Gap 14 LAB CA 8.5-10.2 mg/dL Calcium, Low Total 8.4 LAB GFRAA eGFR- Amer. >60 LAB GFRNAA . eGFR-All Other Races >60 Result Comment: eGFR (Estimated GFR) Units of measure: mL/min/1.73 meters squared eGFR is derived from the reexpressed MDRD Study equation using the following parameters: serum creatinine, age, gender and race. The creatinine assay has been calibrated to be traceable to IDMS. An eGFR <60 mL/min/1.73m2 for >3 months is consistent with chronic kidney disease. Refer to KDOQI guidelines for clinical interpretation. In patients with unstable renal function, e.g. those with acute kidney injury, the eGFR may not accurately reflect actual GFR. Performed By: #### CBC, BMP, MG1, PHOS #### [facility] [address] [place], [place] [address] MAGNESIUM Collected: 05/27/2018 Status: F Source: [place] 6:11 AM [facility] REPOSITORY TYPE CODE TESTS RESULT OUT OF REFERENCE UNITS RANGE LAB MG 1.7-2.3 mg/dL Magnesium 2.0 Performed By: #### CBC, BMP, MG1, PHOS #### [facility] [address] [place], [place] [address] PHOSPHORUS Collected: 05/27/2018 Status: F Source: [place] 6:11 AM [facility] REPOSITORY TYPE CODE TESTS RESULT OUT OF REFERENCE UNITS RANGE LAB PHOS 2.7-4.8 mg/dL Low Phosphorus 2.6 Performed By: #### CBC, BMP, MG1, PHOS #### [address] [place], [place] [address] PTT,ANTICOAG THERAPY Collected: 05/27/2018 Status: F Source: [place] 6:11 AM [facility] REPOSITORY TYPE CODE TESTS RESULT OUT OF RANGE REFERENCE UNITS LAB APTT 23.0-32.4 sec High APTT 51.8 Result Comment: Unfractionated Heparin Therapeutic Ranges: Standard Heparin Nomogram: 53 to 78 seconds (anti-Xa level of 0.3 to 0.7 U/ml) Low Dose/ACS Nomogram: 49 to 67 seconds (anti-Xa level of 0.2 to 0.5 U/ml) Stroke Treatment Nomogram: 49 to 67 seconds (anti-Xa level of 0.2 to 0.5 U/ml) Note: The APTT therapeutic range has been determined for the current lot of laboratory APTT reagent in use throughout the [facility]. Performed By: #### PTTAC #### [address] [address] TROPONIN T Collected: 05/27/2018 Status: F Source: [place] 6:11 AM [facility] REPOSITORY TYPE CODE TESTS RESULT OUT OF REFERENCE UNITS RANGE LAB TROPT 0.000-0.029 ng/mL Troponin T <0.010 Performed By: #### BRITTANY #### [address] [place], [place] [address] CBC Collected: 05/26/2018 Status: F Source: [place] 9:04 PM [facility] REPOSITORY TYPE CODE TESTS RESULT OUT OF RANGE REFERENCE UNITS LAB WBC 3.70-11.00 k/uL WBC 8.90 Result Comment: Less than optimal volume of specimen received and tested. LAB RBC 3.90-5.20 m/uL RBC Low 3.56 LAB HGB 11.5-15.5 g/dL Hemoglobin Low 10.2 LAB HCT 36.0-46.0 % Hematocrit Low 32.9 LAB MCV 80.0-100.0 fL MCV 92.4 LAB MCH 26.0-34.0 pG MCH 28.7 LAB MCHC 30.5-36.0 g/dL MCHC 31.0 LAB RDWCV 11.5-15.0 % RDW-CV High 15.3 LAB PLTCT 150-400 k/uL Platelet Count 269 LAB MPV 9.0-12.7 fL MPV 9.6 LAB ABSNUC <0.01 k/uL Absolute High nRBC 0.01 Performed By: #### CBC, BMP, CKCKMB, BRITTANY #### [facility] [address] [place], [place] [address] BASIC METABOLIC PANL Collected: 05/26/2018 Status: F Source: [place] 9:04 PM [facility] REPOSITORY TYPE CODE TESTS RESULT OUT OF REFERENCE UNITS RANGE LAB GLU 74-99 mg/dL High Glucose 185 Result Comment: The [place] Diabetes [employer] (ADA) provides guidance for cutoff values for fasting glucose and random glucose. The ADA defines fasting as no caloric intake for at least 8 hours. Fas ting plasma glucose results between 100 to 125 mg/dL indicate increased risk for diabetes (prediabetes). Fasting plasma glucose results greater than or equal to 126 mg/dL meet the criteria for diagnosis of diabetes. In the absence of unequivocal hyperglycemia, results should be confirmed by repeat testing. In a patient with classic symptoms of hyperglycemia or hyperglycemic crisis, random plasma glucose results greater than or equal to 200 mg/dL meet the criteria for diagnosis of diabetes. Reference: Standards of Medical Care in Diabetes 2016, [place] [employer]. Diabetes Care. 2016.39(Suppl 1). LAB BUN 7-21 mg/dL BUN 17 LAB CRET 0.58-0.96 mg/dL Creatinine 0.70 LAB NA 136-144 mmol/L Sodium 139 LAB K 3.7-5.1 mmol/L Potassium 4.2 LAB CL 97-105 mmol/L Chloride 98 LAB CO2 22-30 mmol/L CO2 24 LAB AGAP 9-18 mmol/L Anion Gap 17 LAB CA 8.5-10.2 mg/dL Calcium, Low Total 8.1 LAB GFRAA eGFR- Amer. >60 LAB GFRNAA . eGFR-All Other Races >60 Result Comment: eGFR (Estimated GFR) Units of measure: mL/min/1.73 meters squared eGFR is derived from the reexpressed MDRD Study equation using the following parameters: serum creatinine, age, gender and race. The creatinine assay has been calibrated to be traceable to IDMS. An eGFR <60 mL/min/1.73m2 for >3 months is consistent with chronic kidney disease. Refer to KDOQI guidelines for clinical interpretation. In patients with unstable renal function, e.g. those with acute kidney injury, the eGFR may not accurately reflect actual GFR. Performed By: #### CBC, BMP, CKCKMB, BRITTANY #### [address] [address] CK, TOTAL AND CKMB Collected: 05/26/2018 Status: F Source: [place] 9:04 [facility] REPOSITORY TYPE CODE TESTS RESULT OUT OF REFERENCE UNITS RANGE LAB CK 42-196 U/L High CK 663 LAB MB <4.3 ng/mL MB 4.1 LAB CKMBRI 0.0-4.0 % CK MB % 0.6 Performed By: #### CBC, BMP, CKCKMB, BRITTANY #### [address] [place], [place] [address] TROPONIN T Collected: 05/26/2018 Status: F Source: [place] 9:04 PM [facility] REPOSITORY TYPE CODE TESTS RESULT OUT OF REFERENCE UNITS RANGE LAB TROPT 0.000-0.029 ng/mL Troponin T <0.010 Performed By: #### CBC, BMP, CKCKMB, BRITTANY #### [address] [place], [place] [address] NURSING PROG Observed: 05/26/2018 Status: COMPLETED Source: [place] 7:57 PM [facility] REPOSITORY HNO ID: [id number] Author: Dana (Rn) FERNIE Woo Service: (none) Author Type: Registered Nurse Type: Nursing Progress Note Filed: 05/27/2018 3:53 AM Note Text: Nursing Progress Note Patient Name: Adri Goyal Patient Location: [facility] [id number]/[id number] Daily Note: Phlebotomy and nursing staff unable to draw scheduled labs. On-call ([phone]) notified. Will see if AMET can attempt. Paged on-call MD ([phone]) regarding CT chest results to discuss plan of care. MD returned page, no further orders at this time. Will continue to monitor. Patient resting in bed and denies SOB or difficulty breathing. 2300: Orders placed for continuous heparin gtt. Patient updated on plan of care. This note was completed by: Dana Woo RN CT ABD/PEL W IVCON Observed: 05/26/2018 Status: F Source: [place] 7:29 PM [facility] REPOSITORY * * *Final Report* * * DATE OF EXAM: May 26 2018 7:29PM [facility] 0530 - CT ABD/PEL W IVCON / PROCEDURE REASON: Post operative complication suspected * * * * Physician Interpretation * * * * EXAMINATION: CT ABDOMEN AND PELVIS WITH IV CONTRAST CLINICAL HISTORY: 57 year old female with history of multiple abdominal surgeries complicated by large incisional hernia now s/p bilateral TAR with mesh placement on 05/21, evaluate for postoperative complication TECHNIQUE: CT of the abdomen and pelvis was performed using standard technique, scanning from just above the dome of the diaphragm to the symphysis pubis. MQ: CTAP_3 Contrast: IV: 146 ml of Omnipaque 300 Oral: 900 ml of 50ML Omnipaque [address] Radiation dose: Integrated Dose-length product (DLP) for this visit = 1645 mGy*cm. CT Dose Reduction Employed: Automated exposure control (AEC) COMPARISON: 01/24/2018 RESULT: Liver: No mass. Biliary: Status post cholecystectomy. Mild dilatation the common bile duct, tapers to normal distally. No intrahepatic biliary ductal dilation. Spleen: No mass. No splenomegaly. Pancreas: No mass or duct dilation. Adrenals: No mass. Kidneys: Subcentimeter lesions that are too small to characterize but likely benign. No calculus or hydronephrosis. GI tract: There are colorectal and coloanal anastomoses. Additional suture line noted in the LEFT abdomen. Diffuse fluid-filled mildly dilated colonic loops measuring up to 7.2 cm. There are mildly dilated loops of small bowel measuring up to 3.3 cm. Discrete transition point is not identified. There is no pneumatosis or free intraperitoneal air. Small hiatal hernia, likely type II. Lymph nodes: No abdominal or pelvic lymphadenopathy. Mesentery/Peritoneum: Trace fluid and mild stranding in the mesentery. Retroperitoneum: No mass. Vasculature: The celiac axis and SMA are patent. The portal vein and branches, splenic vein, SMV, and hepatic veins are patent. Pelvis: No mass, ascites or fluid collection. Bones/Soft Tissues: Status post ventral hernia repair ventral hernia repair. Surgical drainage catheters terminate in the ventral abdominal wall. There is subcutaneous infiltration and small amount of fluid. Lower thorax: Trace bilateral pleural effusions and bibasilar atelectasis and/or consolidation. IMPRESSION: FINDINGS FAVORING COLONIC ILEUS. NO INTRA-ABDOMINAL FLUID COLLECTION. TRACE BILATERAL PLEURAL EFFUSIONS AND BIBASILAR ATELECTASIS AND/OR CONSOLIDATION. Warehouse Hand: PSCB Transcribe Date/Time: May 26 2018 7:52P Dictated by : MAX DUGGAN MD This examination was interpreted and the report reviewed and electronically signed by: MAX DUGGAN MD on May 26 2018 8:19PM EST [id number] CT CHEST W IVCON PE Observed: 05/26/2018 Status: F Source: [place] 7:29 PM [facility] REPOSITORY * * *Final Report* * * DATE OF EXAM: May 26 2018 7:29PM [facility] 0540 - CT CHEST W IVCON PE / PROCEDURE REASON: Shortness of breath * * * * Physician Interpretation * * * * EXAMINATION: CHEST CT WITH CONTRAST (PULMONARY EMBOLISM PROTOCOL) CLINICAL HISTORY: Shortness of breath. Assess for pulmonary thromboemboli Technique: Spiral CT acquisition of the chest from the thoracic inlet to the upper abdomen following IV contrast. MQ: CTCPE_4 Contrast: 146 mL Omnipaque [address] Dose-Length Product: 1645 mGy*cm CT Dose Reduction Employed: Automated exposure control (AEC) Comparison: Chest x-ray 05/26/2018, CT chest 05/06/2013 RESULT: Limitations: There is moderately good, but suboptimal opacification of the pulmonary to vasculature. Assessment is also compromised by respiratory motion. Within these limitations -- Evaluation for thromboembolic disease: - Right heart chambers: No thromboembolic disease. - Main pulmonary arteries: No thromboembolic disease. - Lobar pulmonary arteries: No thromboembolic disease. - Segmental/subsegmental pulmonary arteries: There is an intraluminal filling defect in the anterior segmental artery of the left upper lobe (image 86) with probable extension into subsegmental arteries. Filling defects are also suspected in the distal apico-posterior segmental artery of the left upper lobe extending into subsegmental arteries (images 62-72). - Subsegmental pulmonary arteries: See above. No additional subsegmental pulmonary thrombi visualized, given limitations. Lines, tubes, and devices: None. Lung parenchyma and pleura: The trachea and central airways appear patent and devoid of endobronchial lesion. There is slight narrowing of the AP diameter of the intrathoracic trachea and both mainstem bronchi which may be secondary to imaging during expiration. Small bilateral low-density pleural effusions layer dependently, right larger than left. There are associated dependent airspace opacities in both lower lobes most commonly secondary to nonspecific atelectasis. Subsegmental atelectasis of the lingula and right upper lobe are also noted. There is a calcified granuloma in the left lower lobe (image 21). There is relative elevation of the right hemidiaphragm with passive atelectasis of the right lung base. No pneumothorax is identified. Thoracic inlet, heart, and mediastinum: The visualized thyroid gland appears unremarkable. No supraclavicular lymphadenopathy is identified. There is no region of intrathoracic lymphadenopathy, including the axillae. The thoracic aorta appears normal in course and caliber. The left vertebral artery arises from aortic arch, a normal anatomic variant. The main and central pulmonary arteries are within normal limits of diameter. No specific cardiac chamber enlargement is identified. There is nonspecific thickening of the pericardial sac. There are postsurgical changes involving the EG junction. A hiatal hernia is present. The intrathoracic esophagus is mildly distended and fluid-filled. Sequelae of a motility disorder such as GERD must be considered. Bones and soft tissues: The vertebral body heights appear symmetric and well-maintained. No lytic or destructive osseous lesion is identified. The soft tissues of the chest wall appear unremarkable. Upper abdomen: CT examination of the abdomen and pelvis has been interpreted separately. IMPRESSION: 1. The study is positive for pulmonary thromboemboli as described. 2. There are bilateral pleural effusions, right greater than left, with associated dependent airspace opacities in both lower lobes most commonly secondary to nonspecific atelectasis. 3. . There is a hiatal hernia. The intrathoracic esophagus is mildly distended and fluid-filled. Sequelae of a motility disorder such as GERD must be considered. CRITICAL TEST/RESULTS: Pulmonary thromboemboli Communicated with Dr. Gomez on 05/26/2018 at 2117. Warehouse Hand: PSCPollo Transcribe Date/Time: May 26 2018 9:41P Dictated by : LUCY POP MD This examination was interpreted and the report reviewed and electronically signed by: JOSE DAVID STATON MD on May 27 2018 8:11AM EST [id number] CRITICAL!! PROGRESS Observed: 05/26/2018 Status: COMPLETED Source: [place] 6:42 PM [facility] REPOSITORY HNO ID: [id number] Author: Radha Prakash) Franco Flores Service: Radiology Author Type: Director Of Market Intelligence Type: Progress Notes Filed: 05/26/2018 7:16 PM Note Text: Radiology Service Progress Note PATIENT NAME: Adri Goyal DATE OF SERVICE: May 26, 2018 TIME: 6:42 PM PATIENT IDENTITY VERIFICATION COMPLETED USING TWO (2) METHODS: Patient confirmed name verbally and ID band matches.. PATIENT GENDER DATA: Female. status: : No status: NO. PATIENT RELEVANT IMPLANT DATA REVIEWED: Yes RADIOLOGY DEPARTMENT: CT; Exam(s) Completed: Abdomen/Pelvis and PE Study PERIPHERAL IV DATA: Site assessment: Clean,Dry and Intact, Site disposition Left in for next appointment SIGNED BY: Franco Appiah May 26, 2018 6:42 PM GASA + ALL Collected: 05/26/2018 Status: F Source: [facility] 6:27 PM [facility] REPOSITORY TYPE CODE TESTS RESULT OUT OF REFERENCE UNITS RANGE LAB PH 7.35-7.45 pH 7.42 LAB PCO2 34-46 mm Hg pCO2 37 LAB PO2 85-95 mm Hg pO2 71 Low LAB BE mmol/L Base Excess 0 LAB HCO3 22-26 mmol/L Bicarbonate 24 LAB CO2CT 22.0-28.0 mmol/L CO2 Content 25 LAB O2HB 95-98 % 93 Low Oxyhemoglobin, Art. LAB COHB 0-5.0 % 0.2 Carboxyhemoglobin ,Art LAB MHGB 0.4-1.5 % 0.9 Methemoglobin LAB TEMP C 37.0 Temperature, Body LAB PHTC 7.35-7.45 pH, Temp 7.42 Corrected LAB PCO2T 34-46 mm Hg pCO2, Temp 37 Correct LAB PO2T mm Hg pO2, Temp 71 Corrected LAB NAB 132-148 mmol/L 137 Sodium,Whole Bld LAB KWB 3.5-5.0 mmol/L Potassium, 3.6 Whole Bld LAB HGBB 11.5-15.5 g/dL 9.5 Low Hemoglobin,Total, ACL LAB HCTB 36.0-46.0 % Hematocrit, 29 Low ACL LAB IC 1.08-1.30 mmol/L Calcium, 1.12 Ion, WB LAB GLB 60-105 mg/dL 202 High Glucose,Whole Bld LAB LACT 0.5-2.2 mmol/L Lactate 1.4 LAB ABGCOM Blood Gas O2 Comm, Art Administration Result Comment: 40% Performed By: #### ALLBG #### [facility] [address] [place] [id number] MEDICAL MARIANNA Observed: 05/26/2018 Status: COMPLETED Source: [place] 5:55 PM [facility] RE[facility]IT[facility] HNO ID: [id number] Author: Rj Kearney Service: Critical Care Author Type: Nurse Practitioner Type: Chg in Clinical Condition Filed: 05/26/2018 6:06 PM Note Text: MEDICAL EMERGENCY TEAM AMET Date of MET Page: May 26, 2018 Time of MET Page: 1724 hours Time of LIP Arrival: 1728 hours Requesting Provider: [facility] Nursing Unit SUMMARY DIAGNOSIS, ASSESSMENT and RECOMMENDATIONS PLAN, DISPOSITION and OUTCOME Patient to remain on [facility] History of Present Illness: This is a 57 year old woman with a history of multiple abdominal surgeries complicated by large incisional hernia now s/p bilateral TAR with mesh placement on 05/21. Today she developed chest pain on the regular nursing floor and AMET was activated. Upon arrival the patient described her pain as ongoing for the past 15 minutes, starting in the left sternum and radiating to the left chest, accompanied by nausea, 6/10 in severity. She stated it was originally stabbing but then became burning acid. She stated it was improved when she coughed and when she pushed down on her chest. Of note, patient also tachycardic with an increasing oxygen requirement from 3 liters to 5 liters nasal cannula. ECG performed and unchanged from prior except rate increased. Primary team responded to bedside. Primary team stated they intend to draw labs (including cardiac enzymes), ABG, and perform CT PE. Primary team to assume management; no further AMET needs at this time. Bedside nurse notified to contact AMET if any further concerns. PRIMARY REASON FOR CALL Cardiac: Patient complaint of Chest Pain PAST MEDICAL / SURGICAL HISTORY PAST MEDICAL HISTORY Diagnosis Date - Abdominal pain, generalized CHRONIC PAIN MANAGEMENT - Bacterial overgrowth syndrome - Bowel disease - Depressive disorder, not elsewhere classified on cymbalta - Diabetes mellitus (HCC) 1980s on insulin since 1982 - Fracture - GERD (gastroesophageal reflux disease) resolved since 2004 - HTN (hypertension) resolved since 2004 - Incisional hernia without mention of obstruction or gangrene - Irritable bowel syndrome - Necrotizing fasciitis (HCC) - Obesity, unspecified 05-23-10 STATED BMI 35.91 Ht: 70 Wt: 250 lbs - Open wound of abdominal wall, anterior, complicated 1 - PMH - PAST MEDICAL HISTORY OF irritable bowel syndrome, necrotizing fasciitis, hypertension, diabetes, GERD, gastritis, - PMH - PAST MEDICAL HISTORY OF 09/2009 left foot break - RSD lower limb seen by pain management , PAST SURGICAL HISTORY Procedure Laterality Date - ARTHROS SHLDR DX W/WO SYNV BX Right 05/03/2017 Right shoulder arthroscopy, glenoid chondroplasty - FEEDING TUBE-SPECIFY J-tube - GASTRIC BYPASS, LION-EN-Y 04/27/11 - HYSTERECTOMY HX 2003 - MIDLINE INSERTION/CONSULT 05/25/2018 - PAST SURGICAL HISTORY OF colostomy, partial colectomy,OSMAR/BSO, right hand tendon rplaced, fatty tumor excision back and thigh,ulnar nreve surgery bilaterally, tonsillectomy - PAST SURGICAL HISTORY OF 2005 repair of fistulas - PAST SURGICAL HISTORY OF 2005 translupe colostomy - PAST SURGICAL HISTORY OF 2004 debredement due to necratizing fascitis - PAST SURGICAL HISTORY OF 2005 hysterectomy - PAST SURGICAL HISTORY OF STATES > 113 ABDOMINAL SURGERIES - PAST SURGICAL HISTORY OF resversal of colostomy - PAST SURGICAL HISTORY OF 10/2015 hernia repair/abdominal muscle repair - REPAIR COMPL ROTATOR CUFF AVULSN,CHR Right 05/03/2017 Glenoid chondroplasty, labtral debridement, SAD - TONSILLECTOMY HX 1977 MEDICATIONS Current Facility-Administered Medications: HYDROmorphone 0.2 mg injection (DILAUDID) 0.2 mg INTRAVENOUS q [address] 40 mg tab(s) (PROTONIX) 40 mg ORAL BID AC (0600/1600) insulin lispro injection (rapid acting) (HumaLOG) SUBCUTANEOUS w MEALS AND HS senna 8.6 mg tab(s) (SENOKOT) 8.6 mg ORAL BID oxyCODONE IR 5-10 mg tab(s) (ROXICODONE) 5-10 mg ORAL q 3 H PRN ipratropium-albuterol 3 mL nebulizer solution (DUONEB) 3 mL INHALATION q 4 H while awake iv contrast (radiology procedure) INTRAVENOUS DIRECTED PRN iv contrast (radiology procedure) INTRAVENOUS DIRECTED PRN NaCl 0.9% 10 mL 10 mL INTRAVENOUS q 12 H NaCl 0.9% 20 mL 20 mL INTRAVENOUS PRN cyclobenzaprine 5 mg tab(s) (FLEXERIL) 5 mg ORAL TID PRN diphenhydrAMINE 12.5 mg CUP (BENADRYL) 12.5 mg ORAL q 6 H PRN amLODIPine 10 mg tab(s) (NORVASC) 10 mg ORAL DAILY losartan 50 mg tab(s) (COZAAR) 50 mg ORAL DAILY acetaminophen 1,000 mg tab(s) (TYLENOL) 1,000 mg ORAL q 6 H enoxaparin 40 mg injection (LOVENOX) 40 mg SUBCUTANEOUS q 24 HR metoprolol tartrate (short acting) 12.5 mg tab(s) (LOPRESSOR) 12.5 mg ORAL q 12 H DULoxetine 60 mg cap(s) (CYMBALTA) 60 mg ORAL AT BEDTIME gabapentin 300 mg cap(s) (NEURONTIN) 300 mg ORAL AT BEDTIME mupirocin 2% 0.5 g nasal ointment (BACTROBAN) 0.5 g NASAL BID QUEtiapine 100 mg tab(s) (SEROquel) 100 mg ORAL AT BEDTIME lactated ringers infusion 50 mL/hr INTRAVENOUS CONTINUOUS docusate sodium 100 mg cap(s) (COLACE) 100 mg ORAL BID ondansetron (PF) 4 mg injection (ZOFRAN) 4 mg INTRAVENOUS q 6 H PRN hydrALAZINE 5 mg injection (APRESOLINE) 5 mg INTRAVENOUS q 6 H PRN NaCl 0.9% 3-5 mL 3-5 mL INTRAVENOUS q 12 H dextrose 40 % 15 g 15 g ORAL PRN Or glucagon 1 mg injection (GLUCAGEN) 1 mg INTRAMUSCULAR PRN Or dextrose 50 % 12.5 g injection 12.5 g INTRAVENOUS PRN ALLERGIES ALLERGIES Allergen Reactions - Bactrim [Sulfametho* Other: See Comments Cardiac issues, CIPRO IV only - Cipro I.V. [Ciprofl* Hives, Shortness of Breath - Dimetapp [Pseudoeph* Vomiting violently ill when overdosed on it as child - Erythromycin hives ok with zithromax - Keflex [Cephalexin] OK to give zosyn per MD 06-28-06 - Latex Rash rash, breaks out everywhere, n/v , feels weak Can still eat food that is considered for latex allergies No allergic to latex foods per patient isaak 05/07/11 - Tetracycline hives PERTINENT PHYSICAL EXAM and INITIAL ASSESSMENT (For vital signs prior and during MET call, see nursing documentation) Pertinent Vital Signs at Time of MET Call: HR 118, BP 179/95, Resp 20, O2 sat 96% on 5L nasal cannula Appearance: Awake but frequently with eyes closed Airway Patent: Yes Breathing Evaluation: Unlabored Breathing Adequate: Yes Circulation Evaluation: Heart Sounds tachycardic rate, regular rhythm, no murmurs, rubs or gallops detected Circulation Adequate: Yes Neurologic Evaluation: Appropriate and interactive Additional Physical Exam Findings: Skin: Warm Lungs: Clear but diminished in the bilateral bases Abdomen: Soft with ongoing tenderness Extremities: edema: Trace PERTINENT DIAGNOSTICS Labs (Reviewed and include): BMP Recent Labs 05/26/18 0311 GLUC 171* K 4.2 NA 137 CHLOR 97 CO2 26 CREAT 1.02* BUN 19 ANION 14 CA 8.2* CBC Recent Labs 05/26/18 031 HB 9.9* HCT 31.5* RBC 3.46* WBC 7.56 PLT 306 Bedside POC: N/A EKG: Unchanged from previous EKG except increased rate Imaging: N/A INTERVENTIONS ECG performed,monitoring, communication with primary team Intervention Response: No intervention except initiation of work-up; further management per primary team Primary Team Aware/Notified: Yes SIGNATURE: Rj Kearney APRN.CNP PATIENT NAME: Adri Goyal DATE: May 26, 2018 TIME: 5:55 PM PAGER: [phone] [id number] Observed: 05/26/2018 Status: F Source: [place] 5:38 PM [facility] REPOSITORY NAME : ADRI GOYAL PID : [id number] : 1960 Gender : Female Race : ORD : Procedure Date : May 26 2018 17:38:46 Edit Date : May 27 2018 14:52:57 Diagnosis:SINUS TACHYCARDIA POSSIBLE ANTERIOR MYOCARDIAL INFARCTION , AGE UNDETERMINED CANNOT EXCLUDE INFERIOR MYOCARDIAL INFARCTION , AGE UNDETERMINED ABNORMAL ECG Confirmed by MD ALISSON, PhD, MARCIA ([id number]) on 05/27/2018 2:52:54 PM Ventricular Rate : 118 BPM Atrial Rate : 118 BPM P-R Interval : 128 ms QRS Duration : 82 ms Q-T Interval : 322 ms QTC Calculation(Bezet) : 451 ms P [place] : 39 degrees R [place] : -24 degrees T [place] : -17 degrees Test Reason : AMET Location : 74 : H71 1 Overread By : MD ALISSON, PhD,MARCIA Edited By : MD ALISSON, PhD,MARCIA Referred By : , Acquired by : JAVON FONG NURSING PROG Observed: 05/26/2018 Status: COMPLETED Source: [place] 5:28 PM [facility] REPOSITORY HNO ID: [id number] Author: Tahira (Rn) FERNIE Wiley Service: (none) Author Type: Registered Nurse Type: Nursing Progress Note Filed: 05/26/2018 6:05 PM Note Text: Nursing Progress Note Patient Name: Adri Goyal Patient Location: H071 001/H071-01 Daily Note: AMET activated for crushing and stabbing chest pain, 6/10, non radating and nausea. Medicated with zofran, flexeral, and hydralazine. New orders for labs, EKG, ABGs, CT PE and tele This note was completed by: Tahira Wiley RN XR CHEST 1V FRONTAL Observed: 05/26/2018 Status: F Source: [facility] 2:06 PM [facility] REPOSITORY * * *Final Report* * * DATE OF EXAM: May 26 2018 2:06PM RISHABH [id number] - XR CHEST 1V FRONTAL PORT / PROCEDURE REASON: Shortness of breath * * * * Physician Interpretation * * * * EXAMINATION: CHEST RADIOGRAPH (PORTABLE SINGLE VIEW AP) Exam Date/Time: 05/26/2018 2:06 PM Clinical History: Shortness of breath, MQ: [id number] Comparison: 05/21/2018 RESULT: See impression. IMPRESSION: Lines, tubes, and devices: Endotracheal tube out Lungs and pleura: Lung volumes slightly diminished in the interval, mild basal opacities which may represent atelectasis. Obscured bronchovascular margins may be secondary to mild edema or could be accentuated by technique. Cardiomediastinal silhouette: Stable and mildly prominent Other: . Warehouse Hand: PSCB Transcribe Date/Time: May 26 2018 2:57P Dictated by : RAGHAVENDRA PATTERSON MD This examination was interpreted and the report reviewed and electronically signed by: RAGHAVENDRA PATTERSON MD on May 26 2018 2:58PM EST [id number] THERAPY NT Observed: 05/26/2018 Status: COMPLETED Source: [place] 12:45 PM [facility] REPOSITORY HNO ID: [id number] Author: Arielle GonzalezPtAngie Heaton PT Service: Physical Therapy Author Type: Physical Therapist Type: Therapy (PT/OT/Speech/Resp) Filed: 05/26/2018 12:50 PM Note Text: Physical Therapy Treatment SERVICE DATE: 05/26/2018 SERVICE TIME: 1034 to 1057 ROOM: [place] [address] Recommended Discharge Disposition: Home Anticipated Discharge Needs: Physical Assist at Home Physical Assist at Home for: Cleaning;Laundry;Meals Recommended Discharge Equipment: No equipment needs anticipated PT Recommendations to Nursing: Ambulate with device;With assist of 1 person Device: Wheeled Walker PT 6 Clicks Score: 19 Precautions/Activity Restrictions: Abdominal;Lines/Tubes/Drains Precaution/Activity Restriction Comments: Binder ASSESSMENT : The patient was able to ambulate using a rolling walker in the halls. She is very familiar with her post operative precautions/protocol and will have assist from spouse as needed. Updated discharge recommendation to home with a walking program, no skilled PT needs. Will continue to follow during acute care stay. Patient Disposition at Start of Session: Supine in Bed;Call Olguin in Reach Patient Disposition at End of Session: OOB in Chair;Call Olguin in Reach Tolerated Full Session Without limitations Physical Therapy Problem List: Education Deficit;Pain;Decreased Activity Tolerance;Functional Mobility Impairment;Balance Impaired Patient /Caregiver Goals: Go Home Goals for Plan of Care: Rolling with: Independent Transfer supine to/from sit with: Independent Transfer sit to/from stand with: Independent Ambulate with: Independent Distance: 200ft Rehab Potential: Good PLAN: Treatment Frequency (times per week): 2 Current admission Treatment Interventions: Education;Functional Mobility Training Plan of Care developed with: Patient TREATMENT INTERVENTIONS: Therapy Diagnosis: Reduced mobility-other Interventions Provided: Therapeutic Activity (42769);Gait Training (98174) Therapeutic Activity (31129) Treatment Minutes: 12 1 unit Skilled Intervention(s): Instructed patient in supine to sit pushing with upper extremities to sit up Instruction in sit to and from stand technique with proper hand placement and body positioning at edge of bed/chair Patient educated on post op protocol/precautions Patient encouraged to sit up for meals and to ambulate with nursing as able Discussed discharge planning Safety for in bed and out of bed activity Patient educated on antiembolics and use of pneumatic pumps to decrease edema and risk of DVT's. Gait Training (41605) Treatment Minutes: 11 1 unit Skilled Intervention(s): Instruction in use of equipment, cues for sequence and pattern. Fit and adjust the walker for ease with use. Educated the patient in the difference between using the IV poll and a rolling walker. Verbal cues given to correct posture. Total Timed Code Treatment Minutes: 23 Total Treatment Time (minutes): 23 FUNCTIONAL G CODE: PT 6 Clicks Score: 19 (05/26/18 1034) Mobility: Walking and Moving Around Current Status (G8978): CK (05/26/18 1034) Mobility: Walking and Moving Around Goal Status (G8979): CI (05/26/18 1034) Based on clinical assessment and the score on the 6 Clicks Functional Assessment Tool, the G code and corresponding severity modifiers are documented above. SUBJECTIVE: Current Hospital Course: Chart reviewed and no significant medical updates relevant to therapy were noted Reason for Physical Therapy Consult : Crtical care therapy. Relevant Past Medical History: Multiple abdominal sx. DM. HTN. IBS Patient Report: I want to go home. Home Environment Patient Lives With: Significant Other Assistance Available: 24 Hour Entry To Home: No Stairs Number Of Stairs To Bed/Bath: 0 Prior Functional Level: (Spouse assists with some dressing - bra and socks) OBJECTIVE: Mini Cog Score: 5 (05/23/18922) CURRENT FUNCTIONAL STATUS: Current Functional Mobility Assist Level Additional Information Rolling Minimal Assistance Supine to Sit Minimal Assistance Sit to Supine (did not perform) Scooting Stand By Assistance Sit to Stand Contact Guard Assistance Stand to Sit Contact Guard Assistance Bed to Chair Toilet/Commode Gait Stand By Assistance Gait Device: Wheeled Walker Gait Distance (feet): 20 ft x 1, 80 ft x 1 Stairs Curb Step Car Transfer General Gait Deviations: Flexed trunk posture Balance: Static Standing;Dynamic Standing Static Standing Balance: Supervision Dynamic Standing Balance: Stand By Assistance JH-HLM: 7: Walk 25 feet or more Please see discipline specific clinical documentation flowsheet for complete details for this therapy evaluation/treatment. SIGNATURE: Arielle Heaton PT, DPT PATIENT NAME: Adri Goyal DATE: May 26, 2018 TIME: 12:45 PM CASE MANAGEM Observed: 05/26/2018 Status: COMPLETED Source: [place] 11:06 AM [facility] REPOSITORY HNO ID: [id number] Author: Nataly Lofton (Asst) Service: Care Management Author Type: Resource Center Programs Assistant Type: Care Mgt Progress Note Filed: 05/26/2018 11:07 AM Note Text: CARE MANAGEMENT PROGRESS NOTE SERVICE DATE: 05/26/2018 SERVICE TIME: 10:48 LOS: 5 days IM letter given to patient on 05/26/18. SIGNATURE: Asst Lizandro PATIENT NAME: Adri Goyal DATE: May 26, 2018 TIME: 11:06 AM PAGER/CONTACT #: [phone] THERAPY NT Observed: 05/26/2018 Status: COMPLETED Source: [place] 9:06 AM [facility] REPOSITORY HNO ID: [id number] Author: Arielle GonzalezPtAngie Heaton PT Service: Physical Therapy Author Type: Physical Therapist Type: Therapy (PT/OT/Speech/Resp) Filed: 05/26/2018 9:06 AM Note Text: PHYSICAL THERAPY MISSED VISIT SERVICE DATE: 05/26/2018 SERVICE TIME: 0900 to 0900 ROOM: [place] [address] Attempted Treatment. Patient not seen due to Declined. The patient reports too much pain. SIGNATURE: Arielle Heaton PT, DPT PATIENT NAME: Adri Goyal DATE: May 26, 2018 TIME: 9:06 AM THERAPY NT Observed: 05/26/2018 Status: COMPLETED Source: [place] 8:44 AM [facility] REPOSITORY HNO ID: [id number] Author: Joyce GonzalezOtAngie Morrison Service: Occupational Therapy Author Type: Occupational Therapist Type: Therapy (PT/OT/Speech/Resp) Filed: 05/26/2018 8:45 AM Note Text: OCCUPATIONAL THERAPY MISSED VISIT SERVICE DATE: 05/26/2018 SERVICE TIME: 0843 to 0843 ROOM: [place] [address] Attempted Treatment. Patient not seen due to Declined. Pt's pain level is too high, nursing has already provided pain meds. Of note, pt.'s abdomen looks more distended than on previous visit (05/24). SIGNATURE: Joyce Morrison OTR/L PATIENT NAME: Adri Goyal DATE: May 26, 2018 TIME: 8:44 AM NURSING PROG Observed: 05/26/2018 Status: COMPLETED Source: [place] 7:14 AM [facility] REPOSITORY HNO ID: [id number] Author: Tahira (Rn) FERNIE Wiley Service: (none) Author Type: Registered Nurse Type: Nursing Progress Note Filed: 05/26/2018 7:41 AM Note Text: Nursing Progress Note Patient Name: Adri Goyal Patient Location: [facility] Daily Note: Notified Will Gison, MOUNTER or phos level and need for accucheck orders. New orders received. This note was completed by: Tahira Wiley RN PROGRESS Observed: 05/26/2018 Status: COMPLETED Source: [place] 5:40 AM [facility] REPOSITORY HNO ID: [id number] Author: Mehdi Clayton Service: General Surgery Author Type: Resident Type: Progress Notes Filed: 05/26/2018 6:54 AM Note Text: General Surgery Progress Note Service Date: May 23, 2018 Patient Name: Adri Goyal Assessment and Plan: Adri Goyal is a 57 year old female with history of multiple abdominal surgeries complicated by large incisional hernia now s/p bilateral TAR with mesh placement on 05/21. Remained intubated and admitted to SICU. Extubated on 05/22. 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 Continue home seroquel and cymbalta. Continue gabapentin Cardio/Resp: Incentive spirometry, Wean off O2 FEN/GI: LR @ 50cc/h. Replete Lytes. Diet: Start GISoft. Zofran available. Protonix 40 BID. 500 NS bolus this AM Renal: Strict I/Os. Urine output inadequate, give 500cc NS Heme/DVT PPx: ICDs, Lovenox Wound/ID: No abx Endo: On SSI Dispo: Continue [facility] Mehdi Clayton MD General Surgery, PGY-1 Pager: [phone] (Gen Surg Pager) May 26, 2018 5:42 AM Subjective: No acute events overnight. No BF yet. Had low UOP yesterday. Mild nausea, passing gas, no BM Physical Exam: BP 99/67 Pulse 99 Temp 36.8 ?C (98.3 ?F) (Oral) Resp 17 Ht 177.8 cm (5' 10) Wt 113 kg (249 lb 1.9 oz) SpO2 93% BMI 35.74 kg/m? GENERAL/NEURO: Sedated HEENT: Normocephalic, Atraumatic CHEST: Unlabored breathing on RA ABDOMEN: Soft, Non-tender, Non-Distended, Incision c/d/i, JPs yielding SS fluid EXTREMITIES: warm, well perfused Labs: CBC, Coags, BMP, Mg, Phos Recent Labs 05/26/18 0311 05/25/18 0602 05/24/18 0622 WBC 7.56 6.56 6.87 HB 9.9* 9.9* 9.9* HCT 31.5* 31.0* 31.2* PLT 306 291 221 NA 137 137 140 K 4.2 4.1 4.0 CHLOR 97 97 103 CO2 26 25 25 BUN 19 13 10 CREAT 1.02* 0.86 0.60 GLUC 171* 176* 157* CA 8.2* 8.4* 8.1* MG 2.9* 2.9* 2.6* P 2.1* 1.7* 1.4* Liver Function, Amylase, AND Lipase Intake and Output: Date 05/21/18699 - 05/22/1865805/22/18 07 - 05/23/18 0659 Shift 7291-1495 5892-0040 0291-1007 24 Hour Total 0943-4311 5803-6582 8291-7279 24 Hour Total I N T A K E IV 4050 891 4941 LR 150 707 857 OR Crystalloid intake (mL) 3900 3900 Propofol IV 184 184 Shift Total 4050 891 4941 O U T P U T Urine 450 395 845 OR Urine Output 160 160 Tube Output ( Indwelling Urinary Catheter 05/21/18 1145 Hong 16 Fr) 290 395 685 Tubes 205 220 425 Drain/Tube Output (Drain/Tube 05/21/18 1524 Socrates Harkins Left Upper Quadrant Drain #1) 40 50 90 Drain/Tube Output (Drain/Tube 05/21/18 1524 Socrates Harkins Left Lower Quadrant Abdomen Drain #2) 90 85 175 Drain/Tube Output (Drain/Tube 05/21/18 1621 Socrates Harkins Right Upper Quadrant Abdomen Drain #3) 20 15 35 Drain/Tube Output (Drain/Tube 05/21/18 1621 Socrates Harkins Right Lower Quadrant Abdomen Drain #4) 55 70 125 Blood 100 100 Estimated Blood loss 100 100 Shift Total 878 641 6221 Weight (kg) 110.7 110.7 110.7 110.7 110.7 110.7 Current Medications: Current hospital medications: NaCl 0.9% 500 mL iv bolus 500 mL INTRAVENOUS ONCE pantoprazole DR 40 mg tab(s) (PROTONIX) 40 mg ORAL DAILY NaCl 0.9% 10 mL 10 mL INTRAVENOUS q 12 H NaCl 0.9% 20 mL 20 mL INTRAVENOUS PRN cyclobenzaprine 5 mg tab(s) (FLEXERIL) 5 mg ORAL TID PRN diphenhydrAMINE 12.5 mg CUP (BENADRYL) 12.5 mg ORAL q 6 H PRN amLODIPine 10 mg tab(s) (NORVASC) 10 mg ORAL DAILY losartan 50 mg tab(s) (COZAAR) 50 mg ORAL DAILY acetaminophen 1,000 mg tab(s) (TYLENOL) 1,000 mg ORAL q 6 H oxyCODONE IR 10 mg tab(s) (ROXICODONE) 10 mg ORAL q 3 H PRN HYDROmorphone HAND MOLDER AND CASTER 0.5 mg/mL in NaCl 0.9% 100 mL INTRAVENOUS CONTINUOUS enoxaparin 40 mg injection (LOVENOX) 40 mg SUBCUTANEOUS q 24 HR metoprolol tartrate (short acting) 12.5 mg tab(s) (LOPRESSOR) 12.5 mg ORAL q 12 H DULoxetine 60 mg cap(s) (CYMBALTA) 60 mg ORAL AT BEDTIME gabapentin 300 mg cap(s) (NEURONTIN) 300 mg ORAL AT BEDTIME mupirocin 2% 0.5 g nasal ointment (BACTROBAN) 0.5 g NASAL BID insulin lispro injection (rapid acting) (HumaLOG) SUBCUTANEOUS q 6 H QUEtiapine 100 mg tab(s) (SEROquel) 100 mg ORAL AT BEDTIME lactated ringers infusion 75 mL/hr INTRAVENOUS CONTINUOUS docusate sodium 100 mg cap(s) (COLACE) 100 mg ORAL BID magnesium hydroxide 400 mg/5 mL 30 mL (MOM) 30 mL ORAL BID ondansetron (PF) 4 mg injection (ZOFRAN) 4 mg INTRAVENOUS q 6 H PRN hydrALAZINE 5 mg injection (APRESOLINE) 5 mg INTRAVENOUS q 6 H PRN NaCl 0.9% 3-5 mL 3-5 mL INTRAVENOUS q 12 H dextrose 40 % 15 g 15 g ORAL PRN glucagon 1 mg injection (GLUCAGEN) 1 mg INTRAMUSCULAR PRN dextrose 50 % 12.5 g injection 12.5 g INTRAVENOUS PRN Prior to Admission Medications: gabapentin (NEURONTIN) 100 mg capsule 300 mg daily at bedtime metoprolol succinate ER (TOPROL XL) 25 mg 24 hr tablet Take 1 tablet by mouth every evening. losartan (COZAAR) 50 mg tablet Take 1 tablet by mouth every evening. amLODIPine (NORVASC) 5 mg tablet Take 2 tablets by mouth every evening. insulin glargine (BASAGLAR KWIKPEN U-100 INSULIN) 100 unit/mL (3 mL) inpn Inject 10 Units subcutaneously every 12 hours. 20 units sq twice daily omeprazole (PRILOSEC) 20 mg capsule Take 1 capsule by mouth every evening. QUEtiapine (SEROQUEL) 100 mg tablet Take 1 tablet by mouth every evening. zolpidem (AMBIEN) 5 mg tablet Take 1 tablet by mouth at bedtime as needed (for insomnia.) for up to 180 days. insulin aspart U-100 (NOVOLOG) 100 unit/mL inpn 15 units before meals + 2 u per 50 >200 TDD 75 units DULoxetine (CYMBALTA) 60 mg capsule Take 1 capsule by mouth daily at bedtime. Lancets lancets Use as instructed to test blood sugars 8 times daily E11.9 LANCETS REGULAR MISC 1 Each as directed. Use 6 x daily Fesoterodine (TOVIAZ) 8 mg Tb24 Take 1 tablet by mouth once daily. aspirin, enteric coated (ASPIRIN, ENTERIC COATED) 81 mg EC tablet Take 1 tablet by mouth every evening. meloxicam (MOBIC) 15 mg tablet Take 1 tablet by mouth every evening. estradiol (ESTRACE) 0.01 % (0.1 mg/gram) vaginal cream 1/2 inch of cream to lower vagina qhs twice weekly clonazePAM (KLONOPIN) 1 mg tablet Take 1 tablet by mouth daily at bedtime for 30 days. potassium chloride (K-TAB) 10 mEq tablet Take 1 tablet by mouth twice daily. Diaper,Brief, Adult,Disposable (PREVAIL ADJUST UNDERWEAR SHABANA LARA) misc 1 Each as needed. Dx: N36.0, K58.9 blood sugar diagnostic (ONETOUCH ULTRA TEST) test strip TEST BLOOD SUGAR 6 TO 8 TIMES DAILY Dx: E11.9 Insulin:yes Blood-Glucose Meter (ONETOUCH ULTRA2) monitoring kit As directed pen needle, diabetic 33 gauge x 5/32 ndle 1 Each as directed. Use with injections 4x daily E11.9 cholecalciferol, Vitamin D3, (VITAMIN D3) 50,000 unit cap capsule Take 1 capsule by mouth once each week. Take with your largest meal of the day Multivits,CalciumAND Minerals-FA 267 mcg tab Take 1 tablet by mouth twice daily. Centrum Adult Chewables MVI with minerals is preferred; must be chewable Blood Sugar Diagnostic, Disc strp 1 Each as directed. CHECK BLOOD GLUCOSE EIGHT TIMES PER DAY/ Patient Active Hospital Problem List: Ventral hernia without obstruction or gangrene (03/26/2018) Incisional hernia (05/21/2018) Ventral hernia (05/21/2018) BASIC METABOLIC PANL Collected: 05/26/2018 Status: F Source: [place] 3:11 AM [facility] TYPE CODE TESTS RESULT OUT OF REFERENCE UNITS RANGE LAB GLU 74-99 mg/dL High Glucose 171 Result Comment: The [place] [employer] (ADA) provides guidance for cutoff values for fasting glucose and random glucose. The ADA defines fasting as no caloric intake for at least 8 hours. Fas ting plasma glucose results between 100 to 125 mg/dL indicate increased risk for diabetes (prediabetes). Fasting plasma glucose results greater than or equal to 126 mg/dL meet the criteria for diagnosis of diabetes. In the absence of unequivocal hyperglycemia, results should be confirmed by repeat testing. In a patient with classic symptoms of hyperglycemia or hyperglycemic crisis, random plasma glucose results greater than or equal to 200 mg/dL meet the criteria for diagnosis of diabetes. Reference: Standards of Medical Care in Diabetes 2016, [place] [employer]. Diabetes Care. 2016.39(Suppl 1). LAB BUN 7-21 mg/dL BUN 19 LAB CRET 0.58-0.96 mg/dL Creatinine High 1.02 LAB NA 136-144 mmol/L Sodium 137 LAB K 3.7-5.1 mmol/L Potassium 4.2 LAB CL 97-105 mmol/L Chloride 97 LAB CO2 22-30 mmol/L CO2 26 LAB AGAP 9-18 mmol/L Anion Gap 14 LAB CA 8.5-10.2 mg/dL Low Calcium, Total 8.2 LAB GFRAA eGFR- Amer. >60 LAB GFRNAA . eGFR-All Other Races 56 Result Comment: eGFR (Estimated GFR) Units of measure: mL/min/1.73 meters squared eGFR is derived from the reexpressed MDRD Study equation using the following parameters: serum creatinine, age, gender and race. The creatinine assay has been calibrated to be traceable to IDMS. An eGFR <60 mL/min/1.73m2 for >3 months is consistent with chronic kidney disease. Refer to KDOQI guidelines for clinical interpretation. In patients with unstable renal function, e.g. those with acute kidney injury, the eGFR may not accurately reflect actual GFR. Performed By: #### BMP, MG1, PHOS, CBC #### [facility] [address] [place], [place] [address] MAGNESIUM Collected: 05/26/2018 Status: F Source: [place] 3:11 AM [facility] REPOSITORY TYPE CODE TESTS RESULT OUT OF REFERENCE UNITS RANGE LAB MG 1.7-2.3 mg/dL High Magnesium 2.9 Performed By: #### BMP, MG1, PHOS, CBC #### [facility] [address] [place], [place] [address] PHOSPHORUS Collected: 05/26/2018 Status: F Source: [place] 3:11 AM [facility] REPOSITORY TYPE CODE TESTS RESULT OUT OF REFERENCE UNITS RANGE LAB PHOS 2.7-4.8 mg/dL Low Phosphorus 2.1 Performed By: #### BMP, MG1, PHOS, CBC #### [facility] [address] [place], [place] [address] CBC Collected: 05/26/2018 Status: F Source: [place] 3:11 AM [facility] REPOSITORY TYPE CODE TESTS RESULT OUT OF RANGE REFERENCE UNITS LAB WBC 3.70-11.00 k/uL WBC 7.56 Result Comment: Microtainer specimen LAB RBC 3.90-5.20 m/uL RBC Low 3.46 LAB HGB 11.5-15.5 g/dL Hemoglobin Low 9.9 LAB HCT 36.0-46.0 % Hematocrit Low 31.5 LAB MCV 80.0-100.0 fL MCV 91.0 LAB MCH 26.0-34.0 pG MCH 28.6 LAB MCHC 30.5-36.0 g/dL MCHC 31.4 LAB RDWCV 11.5-15.0 % RDW-CV High 15.2 LAB PLTCT 150-400 k/uL Platelet Count 306 LAB MPV 9.0-12.7 fL MPV 10.0 LAB ABSNUC <0.01 k/uL Absolute nRBC <0.01 Performed By: #### BMP, MG1, PHOS, CBC #### [facility] [address] [place] [id number] NURSING PROG Observed: 05/25/2018 Status: COMPLETED Source: [place] 2:11 PM [facility] REPOSITORY HNO ID: [id number] Author: Dyana GonzalezRn) FERNIE Merritt Service: (none) Author Type: Registered Nurse Type: Nursing Progress Note Filed: 05/25/2018 2:12 PM Note Text: Nursing Progress Note Patient Name: Adri Goyal Patient Location: H071 001/H071-01 Daily Note: pt only had 100cc UOP for last 8 hrs. Paged and notified oncall [phone] [address]. Will continue to monitor pt This note was completed by: Dyana Merritt RN PROCEDURE Observed: 05/25/2018 Status: COMPLETED Source: [place] 11:03 AM [facility] REPOSITORY HNO ID: [id number] Author: Brissa Solano RN Service: PICC Team Author Type: Registered Nurse Type: Procedures Filed: 05/25/2018 11:05 AM Note Text: MIDLINE INSERTION PROCEDURE NOTE - PICC TEAM NURSES DATE OF PROCEDURE: 05/25/2018 TIME OF PROCEDURE: 1055 ORDERING PHYSICIAN: Mehdi Clayton Indications for line placement: Multiple IV attempts and restarts Poor veins/circulatory system Condition of line placement: Sterile Primary Proceduralist: Radha eLmon RN Programs Assistant: Brissa Solano RN Pre-procedure Review: ALLERGIES Allergen Reactions - Bactrim [Sulfametho* Other: See Comments Cardiac issues, CIPRO IV only - Cipro I.V. [Ciprofl* Hives, Shortness of Breath - Dimetapp [Pseudoeph* Vomiting violently ill when overdosed on it as child - Erythromycin hives ok with zithromax - Keflex [Cephalexin] OK to give zosyn per MD 1-12-07 - Latex Rash rash, breaks out everywhere, n/v , feels weak Can still eat food that is considered for latex allergies No allergic to latex foods per patient isaak 05/07/11 - Tetracycline hives Known history of Venous Thrombosis: No Known history of Permanent Pacemaker or Automated Implanted Cardiac Device: No Previous breast surgery of lymph node dissection: No History of renal disease with Arterio-Venous fistula in place or planned?: No Ultrasound assessment complete: Yes Procedure Narrative Safe Practice: Hand hygiene per hospital policy: Yes Skin preparation used: Chloraprep (CHG + alcohol), allowed to dry Barriers used by Proceduralist and all assisting personnel: Yes UNIVERSAL PROTOCOL / SAFETY CHECKLIST Procedure to be performed: midline Sign in Communication: Completed Time Out: Team Confirms the Correct Patient, Correct Procedure, Correct Site and Site Marking, Correct Position (if applicable), Prep and Dry Time (if applicable). Time: 1054 Affirmation of Time Out: YES Sign Out Discussion: Completed, patient tolerated well Brissa Solano RN Midline Catheter Placement: Brand: Immunovaccine Lot: [id number] Number of lumens: 1 Type of Midline: Power Injectable Midline Lumen size: 4Fr Placement Technique: Lidocaine: Yes. Strength: 1% Volume 2ml Modified Seldinger Technique use to place line via the: Left Basilic Ultrasound Guidance: Yes Number of attempts at insertion: 1 Ensured control of guidewire during all aspects of the procedure: Yes Accounted for entire guidewire upon removal: Yes Internal length: 15 cm External length: 0 cm Trim length:15 cm Mid-Arm circumference above insertion site: 30 centimeters Post insertion pain level related to procedure: 0 Action taken to address pain: None needed Verified placement: Positive blood return Line was flushed with 20 cc normal saline Line secured with: Securement device Sterile dressing applied and dated: Yes Sterile caps on all ports prior to leaving procedure area: Yes Specimens: None Complications: None Patient education materials: Given to patient Questions or problems: Page [phone] SIGNATURE: Brissa Solano RN PATIENT NAME: Adri Goyal DATE: May 25, 2018 TIME: 11:04 AM PAGER: [phone] PT ED Observed: 05/25/2018 Status: COMPLETED Source: [place] 10:39 AM [facility] REPOSITORY HNO ID: [id number] Author: Radha Balderrama) FERNIE Lemon Service: PICC Team Author Type: Registered Nurse Type: Patient Education Filed: 05/25/2018 10:40 AM Note Text: PATIENT EDUCATION TOPIC: PROCEDURE / SURGERY: Procedure/Surgery: Midline PATIENT NAME: Adri Goyal PATIENT LOCATION: [place] [address]/[place] [address] READINESS TO LEARN COGNITIVE ABILITY: Alert and oriented MOTIVATION TO LEARN: Eager FAMILY SUPPORT: None - Unavailable/disinterested INSTRUCTION PROVIDED TO: Patient PATIENT LEARNS BEST BY: Individual Instruction FACTORS AFFECTING LEARNING: None PHYSICAL LIMITATIONS AFFECTING LEARNING: None LEARNING RESPONSE DIAGNOSIS: ADULT: Midline PATIENT/FAMILY RESPONSE: Verbalizes understanding of: POST-PROCEDURE INSTRUCTIONS-Correct actions to take to reduce post procedure complications Information received as demonstrated by interest and questions METHOD OF INSTRUCTION: Verbal instruction FOLLOW-UP PLAN: Patient instructed to call with any further issues INSTRUCTIONAL AIDS USED: NA SUPPLEMENTAL MATERIAL PROVIDED TO PATIENT: None REFERRAL (RECOMMENDATION): None Electronically Signed By: Radha Lemon RN PROGRESS Observed: 05/25/2018 Status: COMPLETED Source: [place] 9:15 AM [facility] REPOSITORY O ID: [id number] Author: Shantel Rosenberg Service: General Surgery Author Type: Resident Type: Progress Notes Filed: 05/25/2018 9:16 AM Note Text: GENERAL SURGERY PROGRESS NOTE ASSESSMENT AND PLAN Adri Goyal is a 57 year old female with history of multiple abdominal surgeries complicated by large incisional hernia now s/p bilateral TAR with mesh placement on 05/21. Remained intubated and admitted to SICU. Extubated on 05/22. transferred to [facility] 05/23. 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 flexeril + PO pain meds. Continue home seroquel and cymbalta. Continue gabapentin (home med) -CV/Pulm: continue home metoprolol. Continue amlodipine and losartan. -FEN/GI: AROBF. Continue clears. MIVF. Bowel regimen. -ID: no abx -Endo: SSI -encourage IS, OOBA -DVT ppx: SCDs, Lovenox -Lines/Drains: Continue JUVENTINO to bulb suction. Midline placement given poor IV access. -Dispo: continue care on [facility] Shantel Rosenberg MD PGY4 General Surgery Pager: [phone] *After 6pm and on weekends please page general surgery customer relations specialist [phone]* SUBJECTIVE/INTERVAL EVENTS Tolerating clears. Some mild nausea. No emesis -flatus. -BM Pain controlled. Pain better with addition of flexeril OBJECTIVE BP 104/59 Pulse 91 Temp 37.1 ?C (98.8 ?F) (Oral) Resp 16 Ht 177.8 cm (5' 10) Wt 113 kg (249 lb 1.9 oz) SpO2 97% BMI 35.74 kg/m? Intake/Output Summary (Last 24 hours) at 05/25/18 0659 Last data filed at 05/25/18 0605 Gross per 24 hour Intake 2197 ml Output 860 ml Net 1337 ml General: NAD, resting in bed CV: RRR, extremities wwp Pulm: nonlabored breathing, symmetrical rise, no stridor Abdomen: soft, nondistended, ventura TTP. Incision c/d/i. JUVENTINO x 4 SS Neuro: moves all 4 extremities, no focal deficits Labs/Imaging: CBC, BMP, MG, PHOS Recent Labs 05/25/18 0602 05/24/18 0622 05/23/18 0059 05/22/18 1616 05/22/18 0120 WBC 6.56 6.87 Unable to assay. Clotted specimen. -- 14.91* HB 9.9* 9.9* Unable to assay. Clotted specimen. -- 12.1 HCT 31.0* 31.2* Unable to assay. Clotted specimen. -- 36.4 PLT 291 221 Unable to assay. Clotted specimen. -- 320 NA 137 140 136 138 138 K 4.1 4.0 Unable to assay. Specimen significantly hemolyzed. 4.0 4.9 CHLOR 97 103 103 104 105 CO2 25 25 23 23 16* BUN 13 10 9 9 11 CREAT 0.86 0.60 0.61 0.71 0.69 GLUC 176* 157* 183* 192* 284* CA 8.4* 8.1* 7.6* 7.6* 8.2* MG 2.9* 2.6* 2.0 -- 1.8 P 1.7* 1.4* Unable to assay. Specimen significantly hemolyzed. -- 2.9 Liver Function, Amylase, AND Lipase Recent Labs 05/23/18 0059 05/22/18 1616 05/22/18 0120 05/21/18 1814 04/29/18 1210 11/12/14 1136 11/12/14 0932 11/09/14 0633 TPROT 5.8* -- 6.1* 5.5* 7.1 < > -- -- -- ALB 3.4* -- 3.8* 3.5* 4.6 < > -- -- -- ALT 29 -- 33 29 11 < > -- -- -- AST 62* -- 53* 48* 16 < > -- -- -- ALKPHOS 60 -- 57 57 82 < > -- -- -- TBILI 1.5* -- 1.0 1.2 0.9 < > -- -- -- LACT -- 2.2 -- -- -- -- 2.4* 2.1 1.9 < > = values in this interval not displayed. Coags Recent Labs 05/22/18 0120 04/29/18 1210 09/13/15 1246 09/01/15 1234 APTT 23.7 24.5 29.9 29.0 INR 1.0 0.9 1.0 1.0 Active Hospital Problems Diagnosis Date Noted - Ventral hernia without obstruction or gangrene 03/26/2018 Overview Note: Added automatically from request for surgery [id number] - Incisional hernia 05/21/2018 - Ventral hernia 05/21/2018 CBC Collected: 05/25/2018 Status: F Source: [place] 6:02 AM [facility] REPOSITORY TYPE CODE TESTS RESULT OUT OF REFERENCE UNITS RANGE LAB WBC 3.70-11.00 k/uL WBC 6.56 LAB RBC 3.90-5.20 m/uL Low RBC 3.40 LAB HGB 11.5-15.5 g/dL Low Hemoglobin 9.9 LAB HCT 36.0-46.0 % Low Hematocrit 31.0 LAB MCV 80.0-100.0 fL MCV 91.2 LAB MCH 26.0-34.0 pG MCH 29.1 LAB MCHC 30.5-36.0 g/dL MCHC 31.9 LAB RDWCV 11.5-15.0 % RDW-CV High 15.1 LAB PLTCT 150-400 k/uL Platelet Count 291 LAB MPV 9.0-12.7 fL MPV 10.0 LAB ABSNUC <0.01 k/uL Absolute nRBC <0.01 Performed By: #### CBC, BMP, MG1, PHOS #### [facility] [address] [place] [id number] BASIC METABOLIC PANL Collected: 05/25/2018 Status: F Source: [place] 6:02 AM [facility] REPOSITORY TYPE CODE TESTS RESULT OUT OF REFERENCE UNITS RANGE LAB GLU 74-99 mg/dL High Glucose 176 Result Comment: The [place] [employer] (ADA) provides guidance for cutoff values for fasting glucose and random glucose. The ADA defines fasting as no caloric intake for at least 8 hours. Fas ting plasma glucose results between 100 to 125 mg/dL indicate increased risk for diabetes (prediabetes). Fasting plasma glucose results greater than or equal to 126 mg/dL meet the criteria for diagnosis of diabetes. In the absence of unequivocal hyperglycemia, results should be confirmed by repeat testing. In a patient with classic symptoms of hyperglycemia or hyperglycemic crisis, random plasma glucose results greater than or equal to 200 mg/dL meet the criteria for diagnosis of diabetes. Reference: Standards of Medical Care in Diabetes 2016, [place] [employer]. Diabetes Care. 2016.39(Suppl 1). LAB BUN 7-21 mg/dL BUN 13 LAB CRET 0.58-0.96 mg/dL Creatinine 0.86 LAB NA 136-144 mmol/L Sodium 137 LAB K 3.7-5.1 mmol/L Potassium 4.1 LAB CL 97-105 mmol/L Chloride 97 LAB CO2 22-30 mmol/L CO2 25 LAB AGAP 9-18 mmol/L Anion Gap 15 LAB CA 8.5-10.2 mg/dL Calcium, Low Total 8.4 LAB GFRAA eGFR- Amer. >60 LAB GFRNAA . eGFR-All Other Races >60 Result Comment: eGFR (Estimated GFR) Units of measure: mL/min/1.73 meters squared eGFR is derived from the reexpressed MDRD Study equation using the following parameters: serum creatinine, age, gender and race. The creatinine assay has been calibrated to be traceable to IDMS. An eGFR <60 mL/min/1.73m2 for >3 months is consistent with chronic kidney disease. Refer to KDOQI guidelines for clinical interpretation. In patients with unstable renal function, e.g. those with acute kidney injury, the eGFR may not accurately reflect actual GFR. Performed By: #### CBC, BMP, MG1, PHOS #### [facility] [address] [place], [place] [address] MAGNESIUM Collected: 05/25/2018 Status: F Source: [place] 6:02 AM [facility] REPOSITORY TYPE CODE TESTS RESULT OUT OF REFERENCE UNITS RANGE LAB MG 1.7-2.3 mg/dL High Magnesium 2.9 Performed By: #### CBC, BMP, MG1, PHOS #### [facility] [address] [place] [id number] PHOSPHORUS Collected: 05/25/2018 Status: F Source: [place] 6:02 AM [facility] REPOSITORY TYPE CODE TESTS RESULT OUT OF REFERENCE UNITS RANGE LAB PHOS 2.7-4.8 mg/dL Low Phosphorus 1.7 Performed By: #### CBC, BMP, MG1, PHOS #### [facility] [address] [place], [place] [address] PROGRESS Observed: 05/25/2018 Status: COMPLETED Source: [place] 3:15 AM [facility] REPOSITORY HNO ID: [id number] Author: Downtime Note Service: (none) Author Type: (none) Type: Progress Notes Filed: 05/25/2018 3:17 AM Note Text: Epic Scheduled Downtime: 05/25/2018 1:00:00 AM to 05/25/2018 3:07:00 AM THERAPY NT Observed: 05/24/2018 Status: COMPLETED Source: [place] 11:16 AM [facility] REPOSITORY HNO ID: [id number] Author: Joyce (OtAngie Morrison Service: Occupational Therapy Author Type: Occupational Therapist Type: Therapy (PT/OT/Speech/Resp) Filed: 05/24/2018 11:23 AM Note Text: Occupational Therapy Evaluation SERVICE DATE: 05/24/2018 SERVICE TIME: 1010 to 1053 ROOM: [facility] Recommended Discharge Disposition: Home Recommended Discharge Disposition Comments: with 24 hr assist Anticipated Discharge Needs: Physical Assist at Home Physical Assist at Home for: Cleaning;Laundry;Meals;Stairs;Safety;Self Care;Shopping;Transportation OT Recommendations to Nursing: ADL?s in chair;OOB for meals;Transfer to Chair;With assist of 1 person (progress to bathroom as able with WR) OT 6 Clicks Score: 15 Precautions/Activity Restrictions: Abdominal;Lines/Tubes/Drains Precaution/Activity Restriction Comments: Binder ASSESSMENT: Patient presents with high pain levels and mild anxiety with movement. Pt. Responds well to encouragement and praise. Pt's spouse of 36 years is well versed in caring for pt after abdominal surgeries, however he is dealing with CA himself. Other support from two daughters (both are nurses) who are local. Pt. Does have 24 hr. Assist as needed. Pt. Has 20 grandchildren and cares for them in her free time. Handicap housing, no stairs. OT will follow pt. while in house to increase independence in life roles and to educate re: pain management and functional endurance. OT will address the deficits as listed below. Patient Disposition at Start of Session: Supine in Bed Patient Disposition at End of Session: Supine in Bed;Call Olguin in Reach Tolerated Full Session Occupational Therapy Problem List: Education Deficit;Pain;Impaired Self Care;Decreased Activity Tolerance;Decreased Strength;Functional Mobility Impairment Patient /Caregiver Goals: Go Home;Care For Self Goals for Plan of Care: Upper Body Bathing with: Minimal Assistance Upper Body Dressing with: Minimal Assistance Lower Body Bathing with: Minimal Assistance Lower Body Dressing with: Minimal Assistance Toilet Hygiene with: Modified Independent Chair Transfer with: Supervision Demonstrate Positive Coping Strategies with: Independent Demonstrate Competence With Education with: Independent Progress Toward Goals: Progressing as expected Rehab Potential: Good PLAN: Treatment Frequency (times per week): 2 Treatment Interventions: Education;Self Care / Home Management;Energy Conservation Training;Joint Mobility;Strengthening;Functional Mobility Training;Balance Training;Pain Management Plan of Care developed with: Patient TREATMENT INTERVENTIONS: Therapy Diagnosis: Reduced mobility-other;Decreased activities of daily living (ADL);Muscle Weakness (generalized);Unsteadiness on feet;Abnormalities of gait and mobility-other;General symptoms and signs-other;Difficulty walking-musculoskeletal Interventions Provided: Evaluation;Self Prison Management (24801) $ Evaluation-Low (12989) Billed Units: 1 unit Self Prison Management ([id number]) Treatment Minutes: 28 2 units Skilled Intervention(s): Instructed in post-op instructions during ADLs including precautions, rolling for bed mobility, and binder use. Instructed in energy conservation and endurance training for increased participation in life roles. Provided cuing for hand/oral hygiene with rest breaks to cope with pain prn. Education in role of OT, POC and d/c recommendations. Additional time was needed to completed bed mobility and fxnl transfers with pt to cope with high pain levels. Pt. ambulated around bed with WR and CGA to get to bedside chair, sat for 20 min. Grooming before transferring back to bed with assist x 1. Total Timed Code Treatment Minutes: 28 Total Treatment Time (minutes): 43 FUNCTIONAL G CODE: OT 6 Clicks Score: 15 (05/24/18 1010) Self Care Current Status (G8987): CK (05/24/18 1010) Self Care Goal Status (G8988): CJ (05/24/18 1010) Based on clinical assessment and the score on the 6 Clicks Functional Assessment Tool, the G code and corresponding severity modifiers are documented above. SUBJECTIVE: Current Hospital Course: Chart reviewed; . Adri Goyal is a 57 year old female with history of multiple abdominal surgeries complicated by large incisional hernia now s/p bilateral TAR with mesh placement on 05/21. Remained intubated and admitted to SICU. Extubated on 05/22. Reason for Occupational Therapy Consult: Safety, ADLs Relevant Past Medical History: Multiple abdominal sx. DM. HTN. IBS Patient Report: Thanks for your encouragement, I really needed to hear that. Home Environment Patient Lives With: Significant Other Assistance Available: 24 Hour Entry To Home: No Stairs Number Of Stairs To Bed/Bath: 0 Prior Functional Level: (Spouse assists with some dressing - bra and socks) OBJECTIVE: Cognition/Communication Deficits Responsiveness: Alert;Awake Follows Commands: 3-step Commands Cognitive Clinical Tests and Screens: (Cognition [facility]) Clock Draw Test: 2-Normal Word Recall: 3-recalled words Mini Cog Score: 5 CURRENT FUNCTIONAL STATUS: Current Activities of Daily Living Assist Level Feeding Independent Grooming Independent Bathing Upper Body Bathing Lower Body Dressing Upper Body Dressing Lower Body Total Assistance Toileting Maximal Assistance Instrumental Activities of Daily Living Assist Level Meal/Beverage Prep Light Cleaning Laundry Medication Management with Strategies Functional Mobility Assist Level Rolling Minimal Assistance Supine to Sit Moderate Assistance Sit to Supine Moderate Assistance Scooting Verbal Cues Only Sit to Stand Contact Guard Assistance Stand to Sit Contact Guard Assistance Bed to Chair Contact Guard Assistance Wheeled Walker Toilet/Commode Functional Mobility Contact Guard Assistance Wheeled Walker Balance: Dynamic Standing Dynamic Standing Balance: Contact Guard Assistance Activity Tolerance: Standing Activity;Sitting Activity Sitting Activity: ADLs in chair Sitting Activity Tolerance (in minutes): 20 Standing Activity: 5 Please see discipline specific clinical documentation flowsheet for complete details for this therapy evaluation/treatment. SIGNATURE: Joyce Morrison OTR/L PATIENT NAME: Adri Goyal DATE: May 24, 2018 TIME: 11:16 AM PROGRESS Observed: 05/24/2018 Status: COMPLETED Source: [place] 8:32 AM [facility] REPOSITORY HNO ID: [id number] Author: Sylvie Andrew Service: General Surgery Author Type: Resident Type: Progress Notes Filed: 05/24/2018 8:35 AM Note Text: General Surgery Progress Note Service Date: May 22, 2018 Patient Name: Adri Goyal Assessment and Plan: Adri Goyal is a 57 year old female with history of multiple abdominal surgeries complicated by large incisional hernia now s/p bilateral TAR with mesh placement on 05/21. Remained intubated and admitted to SICU. Extubated on 05/22. Transferred to the floor on Neuro/Pain: Theresa, diladid PRN, Cyclobenzaprine Cardio/Resp: Incentive spirometry, On NC PRN FEN/GI: LR @ 75cc/h. Replete Lytes. Diet: CLD. Zofran available. Renal: Strict I/Os. Urine output adequate. DC Hong Heme/DVT PPx: ICDs, Lovenox Wound/ID: No abx Endo: No issues Benadryl PRN Dispo: RUSS Andrew MD General Surgery, PGY-1 Subjective: No acute events overnight. Complaining of pain. Physical Exam: BP 122/60 Pulse 99 Temp 36.8 ?C (98.3 ?F) (Oral) Resp 18 Ht 177.8 cm (5' 10) Wt 113 kg (249 lb 1.9 oz) SpO2 95% BMI 35.74 kg/m? GENERAL/NEURO: Sedated HEENT: Normocephalic, Atraumatic CHEST: Unlabored breathing on RA ABDOMEN: Soft, Non-tender, Non-Distended, Incision c/d/i, JPs yielding SS fluid Labs: CBC, Coags, BMP, Mg, Phos Recent Labs 05/24/18 0622 05/23/18 0059 05/22/18 1616 05/22/18 0120 WBC 6.87 Unable to assay. Clotted specimen. -- 14.91* HB 9.9* Unable to assay. Clotted specimen. -- 12.1 HCT 31.2* Unable to assay. Clotted specimen. -- 36.4 PLT 221 Unable to assay. Clotted specimen. -- 320 INR -- -- -- 1.0 APTT -- -- -- 23.7 NA 140 136 138 138 K 4.0 Unable to assay. Specimen significantly hemolyzed. 4.0 4.9 CHLOR 103 103 104 105 CO2 25 23 23 16* BUN 10 9 9 11 CREAT 0.60 0.61 0.71 0.69 GLUC 157* 183* 192* 284* CA 8.1* 7.6* 7.6* 8.2* MG 2.6* 2.0 -- 1.8 P 1.4* Unable to assay. Specimen significantly hemolyzed. -- 2.9 Liver Function, Amylase, AND Lipase Recent Labs 05/23/18 00505/22/18 1616 05/22/18 0120 05/21/18 1814 TPROT 5.8* -- 6.1* 5.5* ALB 3.4* -- 3.8* 3.5* ALT 29 -- 33 29 AST 62* -- 53* 48* ALKPHOS 60 -- 57 57 TBILI 1.5* -- 1.0 1.2 LACT -- 2.2 -- -- Intake and Output: Intake/Output Summary (Last 24 hours) at 05/24/18 0833 Last data filed at 05/24/18 0546 Gross per 24 hour Intake 3273 ml Output 1200 ml Net 2073 ml Current Medications: Current hospital medications: cyclobenzaprine 5 mg tab(s) (FLEXERIL) 5 mg ORAL TID PRN diphenhydrAMINE 12.5 mg CUP (BENADRYL) 12.5 mg ORAL q 6 H PRN acetaminophen 1,000 mg tab(s) (TYLENOL) 1,000 mg ORAL q 6 H oxyCODONE IR 10 mg tab(s) (ROXICODONE) 10 mg ORAL q 3 H PRN HYDROmorphone HAND MOLDER AND CASTER 0.5 mg/mL in NaCl 0.9% 100 mL INTRAVENOUS CONTINUOUS enoxaparin 40 mg injection (LOVENOX) 40 mg SUBCUTANEOUS q 24 HR metoprolol tartrate (short acting) 12.5 mg tab(s) (LOPRESSOR) 12.5 mg ORAL q 12 H DULoxetine 60 mg cap(s) (CYMBALTA) 60 mg ORAL AT BEDTIME gabapentin 300 mg cap(s) (NEURONTIN) 300 mg ORAL AT BEDTIME mupirocin 2% 0.5 g nasal ointment (BACTROBAN) 0.[address] 20 mg tab(s) (PROTONIX) 20 mg ORAL DAILY insulin lispro injection (rapid acting) (HumaLOG) SUBCUTANEOUS q 6 H QUEtiapine 100 mg tab(s) (SEROquel) 100 mg ORAL AT BEDTIME lactated ringers infusion 75 mL/hr INTRAVENOUS CONTINUOUS docusate sodium 100 mg cap(s) (COLACE) 100 mg ORAL BID magnesium hydroxide 400 mg/5 mL 30 mL (MOM) 30 mL ORAL BID ondansetron (PF) 4 mg injection (ZOFRAN) 4 mg INTRAVENOUS q 6 H PRN hydrALAZINE 5 mg injection (APRESOLINE) 5 mg INTRAVENOUS q 6 H PRN NaCl 0.9% 3-5 mL 3-5 mL INTRAVENOUS q 12 H dextrose 40 % 15 g 15 g ORAL PRN glucagon 1 mg injection (GLUCAGEN) 1 mg INTRAMUSCULAR PRN dextrose 50 % 12.5 g injection 12.5 g INTRAVENOUS PRN Prior to Admission Medications: gabapentin (NEURONTIN) 100 mg capsule 300 mg daily at bedtime metoprolol succinate ER (TOPROL XL) 25 mg 24 hr tablet Take 1 tablet by mouth every evening. losartan (COZAAR) 50 mg tablet Take 1 tablet by mouth every evening. amLODIPine (NORVASC) 5 mg tablet Take 2 tablets by mouth every evening. insulin glargine (BASAGLAR KWIKPEN U-100 INSULIN) 100 unit/mL (3 mL) inpn Inject 10 Units subcutaneously every 12 hours. 20 units sq twice daily omeprazole (PRILOSEC) 20 mg capsule Take 1 capsule by mouth every evening. QUEtiapine (SEROQUEL) 100 mg tablet Take 1 tablet by mouth every evening. zolpidem (AMBIEN) 5 mg tablet Take 1 tablet by mouth at bedtime as needed (for insomnia.) for up to 180 days. insulin aspart U-100 (NOVOLOG) 100 unit/mL inpn 15 units before meals + 2 u per 50 >200 TDD 75 units DULoxetine (CYMBALTA) 60 mg capsule Take 1 capsule by mouth daily at bedtime. Lancets lancets Use as instructed to test blood sugars 8 times daily E11.9 LANCETS REGULAR MISC 1 Each as directed. Use 6 x daily Fesoterodine (TOVIAZ) 8 mg Tb24 Take 1 tablet by mouth once daily. aspirin, enteric coated (ASPIRIN, ENTERIC COATED) 81 mg EC tablet Take 1 tablet by mouth every evening. meloxicam (MOBIC) 15 mg tablet Take 1 tablet by mouth every evening. estradiol (ESTRACE) 0.01 % (0.1 mg/gram) vaginal cream 1/2 inch of cream to lower vagina qhs twice weekly clonazePAM (KLONOPIN) 1 mg tablet Take 1 tablet by mouth daily at bedtime for 30 days. potassium chloride (K-TAB) 10 mEq tablet Take 1 tablet by mouth twice daily. Diaper,Brief, Adult,Disposable (PREVAIL ADJUST UNDERWEAR KIMBERLEY- ) misc 1 Each as needed. Dx: N36.0, K58.9 blood sugar diagnostic (ONETOUCH ULTRA TEST) test strip TEST BLOOD SUGAR 6 TO 8 TIMES DAILY Dx: E11.9 Insulin:yes Blood-Glucose Meter (ONETOUCH ULTRA2) monitoring kit As directed pen needle, diabetic 33 gauge x 5/32 ndle 1 Each as directed. Use with injections 4x daily E11.9 cholecalciferol, Vitamin D3, (VITAMIN D3) 50,000 unit cap capsule Take 1 capsule by mouth once each week. Take with your largest meal of the day Multivits,CalciumAND Minerals-FA 267 mcg tab Take 1 tablet by mouth twice daily. Centrum Adult Chewables MVI with minerals is preferred; must be chewable Blood Sugar Diagnostic, Disc strp 1 Each as directed. CHECK BLOOD GLUCOSE EIGHT TIMES PER DAY/ Patient Active Hospital Problem List: Ventral hernia without obstruction or gangrene (03/26/2018) Incisional hernia (05/21/2018) Ventral hernia (05/21/2018) PROGRESS Observed: 05/24/2018 Status: COMPLETED Source: [place] 6:39 AM [facility] HNO ID: [id number] Author: Shantel Rosenberg Service: General Surgery Author Type: Resident Type: Progress Notes Filed: 05/24/2018 8:46 AM Note Text: GENERAL SURGERY PROGRESS NOTE ASSESSMENT AND PLAN Adri Goyal is a 57 year old female with history of multiple abdominal surgeries complicated by large incisional hernia now s/p bilateral TAR with mesh placement on 05/21. Remained intubated and admitted to SICU. Extubated on 05/22. transferred to [facility] 05/23. -Pain Control: continue HAND MOLDER AND CASTER. Add flexeril + PO pain meds. Continue home seroquel and cymbalta. Continue gabapentin (home med) -CV/Pulm: continue home metoprolol. Resume amlodipine and losartan. -FEN/GI: AROBF. Continue clears. MIVF. Bowel regimen. -ID: no abx -Endo: SSI -encourage IS, OOBA -DVT ppx: SCDs, Lovenox -Lines/Drains: d/c hong. Continue JUVENTINO to bulb suction. -Dispo: continue care on [facility] Shantel Rosenberg MD PGY4 General Surgery Pager: [phone] *After 6pm and on weekends please page general surgery customer relations specialist [phone]* SUBJECTIVE/INTERVAL EVENTS Having breakthrough pain. Tolerating clears. No N/V -flatus, -BM OBJECTIVE BP 122/60 Pulse 99 Temp 36.8 ?C (98.3 ?F) (Oral) Resp 18 Wt 113 kg (249 lb 1.9 oz) SpO2 95% BMI 35.74 kg/m? Intake/Output Summary (Last 24 hours) at 05/23/18 0659 Last data filed at 05/23/18 0600 Gross per 24 hour Intake 947 ml Output 1495 ml Net -548 ml General: NAD, resting in bed CV: RRR, extremities wwp Pulm: nonlabored breathing, symmetrical rise, no stridor Abdomen: soft, nondistended, ventura TTP. Incision c/d/i. JUVENTINO x 4 SS Neuro: moves all 4 extremities, no focal deficits Labs/Imaging: CBC, BMP, MG, PHOS Recent Labs 05/23/18 0059 05/22/18 1616 05/22/18 0120 05/21/18 1814 04/29/18 1210 08/16/17 1507 02/28/16 1321 02/02/16 1140 WBC Unable to assay. Clotted specimen. -- 14.91* 12.37* 6.80 -- 6.83 < > 4.82 6.26 HB Unable to assay. Clotted specimen. -- 12.1 11.9 12.5 -- 13.7 < > 12.1 11.8 HCT Unable to assay. Clotted specimen. -- 36.4 35.5* 38.7 -- 42.1 < > 37.9 36.9 PLT Unable to assay. Clotted specimen. -- 320 273 249 -- 275 < > 244 211 NA 136 138 138 140 142 < > 141 < > 140 141 K Unable to assay. Specimen significantly hemolyzed. 4.0 4.9 4.4 4.7 < > 4.3 < > 4.3 4.2 CHLOR 103 104 105 106* 104 < > 102 < > 100 103 CO2 23 23 16* 16* 24 < > 25 < > 26 23 BUN 9 9 11 11 15 < > 20 < > 15 12 CREAT 0.61 0.71 0.69 0.76 0.90 < > 1.09* < > 0.84 0.69* GLUC 183* 192* 284* 271* 135* < > 85 < > 108* 205* CA 7.6* 7.6* 8.2* 8.2* 9.0 < > 9.3 < > 8.9 8.5 MG 2.0 -- 1.8 -- -- -- 2.0 -- 1.9 1.8 P Unable to assay. Specimen significantly hemolyzed. -- 2.9 -- -- -- -- -- 3.1 2.6 < > = values in this interval not displayed. Liver Function, Amylase, AND Lipase Recent Labs 05/23/18 0059 05/22/18 1616 05/22/18 0120 05/21/18 1814 04/29/18 1210 11/12/14 1136 11/12/14 0932 11/09/14 0633 TPROT 5.8* -- 6.1* 5.5* 7.1 < > -- -- -- ALB 3.4* -- 3.8* 3.5* 4.6 < > -- -- -- ALT 29 -- 33 29 11 < > -- -- -- AST 62* -- 53* 48* 16 < > -- -- -- ALKPHOS 60 -- 57 57 82 < > -- -- -- TBILI 1.5* -- 1.0 1.2 0.9 < > -- -- -- LACT -- 2.2 -- -- -- -- 2.4* 2.1 1.9 < > = values in this interval not displayed. Coags Recent Labs 05/22/18 0120 04/29/18 1210 09/13/15 1246 09/01/15 1234 APTT 23.7 24.5 29.9 29.0 INR 1.0 0.9 1.0 1.0 Active Hospital Problems Diagnosis Date Noted - Ventral hernia without obstruction or gangrene 03/26/2018 Overview Note: Added automatically from request for surgery [id number] - Incisional hernia 05/21/2018 - Ventral hernia 05/21/2018 CBC Collected: 05/24/2018 Status: F Source: [place] 6:22 AM [facility] REPOSITORY TYPE CODE TESTS RESULT OUT OF REFERENCE UNITS RANGE LAB WBC 3.70-11.00 k/uL WBC 6.87 LAB RBC 3.90-5.20 m/uL Low RBC 3.44 LAB HGB 11.5-15.5 g/dL Low Hemoglobin 9.9 LAB HCT 36.0-46.0 % Low Hematocrit 31.2 LAB MCV 80.0-100.0 fL MCV 90.7 LAB MCH 26.0-34.0 pG MCH 28.8 LAB MCHC 30.5-36.0 g/dL MCHC 31.7 LAB RDWCV 11.5-15.0 % RDW-CV 15.0 LAB PLTCT 150-400 k/uL Platelet Count 221 LAB MPV 9.0-12.7 fL MPV 9.9 LAB ABSNUC <0.01 k/uL Absolute nRBC <0.01 Performed By: #### CBC, BMP, MG1, PHOS #### [facility] [address] [place], [place] [address] BASIC METABOLIC PANL Collected: 05/24/2018 Status: F Source: [place] 6:22 AM [facility] REPOSITORY TYPE CODE TESTS RESULT OUT OF REFERENCE UNITS RANGE LAB GLU 74-99 mg/dL High Glucose 157 Result Comment: The [place] [employer] (ADA) provides guidance for cutoff values for fasting glucose and random glucose. The ADA defines fasting as no caloric intake for at least 8 hours. Fas ting plasma glucose results between 100 to 125 mg/dL indicate increased risk for diabetes (prediabetes). Fasting plasma glucose results greater than or equal to 126 mg/dL meet the criteria for diagnosis of diabetes. In the absence of unequivocal hyperglycemia, results should be confirmed by repeat testing. In a patient with classic symptoms of hyperglycemia or hyperglycemic crisis, random plasma glucose results greater than or equal to 200 mg/dL meet the criteria for diagnosis of diabetes. Reference: Standards of Medical Care in Diabetes 2016, [place] [employer]. Diabetes Care. 2016.39(Suppl 1). LAB BUN 7-21 mg/dL BUN 10 LAB CRET 0.58-0.96 mg/dL Creatinine 0.60 LAB NA 136-144 mmol/L Sodium 140 LAB K 3.7-5.1 mmol/L Potassium 4.0 LAB CL 97-105 mmol/L Chloride 103 LAB CO2 22-30 mmol/L CO2 25 LAB AGAP 9-18 mmol/L Anion Gap 12 LAB CA 8.5-10.2 mg/dL Calcium, Low Total 8.1 LAB GFRAA eGFR- Amer. >60 LAB GFRNAA . eGFR-All Other Races >60 Result Comment: eGFR (Estimated GFR) Units of measure: mL/min/1.73 meters squared eGFR is derived from the reexpressed MDRD Study equation using the following parameters: serum creatinine, age, gender and race. The creatinine assay has been calibrated to be traceable to IDMS. An eGFR <60 mL/min/1.73m2 for >3 months is consistent with chronic kidney disease. Refer to KDOQI guidelines for clinical interpretation. In patients with unstable renal function, e.g. those with acute kidney injury, the eGFR may not accurately reflect actual GFR. Performed By: #### CBC, BMP, MG1, PHOS #### [facility] [address], [place] [address] MAGNESIUM Collected: 05/24/2018 Status: F Source: [place] 6:22 AM [facility] REPOSITORY TYPE CODE TESTS RESULT OUT OF REFERENCE UNITS RANGE LAB MG 1.7-2.3 mg/dL High Magnesium 2.6 Performed By: #### CBC, BMP, MG1, PHOS #### [facility] [address] [place] [id number] PHOSPHORUS Collected: 05/24/2018 Status: F Source: [place] 6:22 AM [facility] REPOSITORY TYPE CODE TESTS RESULT OUT OF REFERENCE UNITS RANGE LAB PHOS 2.7-4.8 mg/dL Low Phosphorus 1.4 Performed By: #### CBC, BMP, MG1, PHOS #### [facility] [address] [place], [place] [address] NURSING PROG Observed: 05/23/2018 Status: COMPLETED Source: [place] 10:35 PM [facility] REPOSITORY HNO ID: [id number] Author: Martha Balderrama) FERNIE Singletary Service: (none) Author Type: Registered Nurse Type: Nursing Progress Note Filed: 05/24/2018 12:41 AM Note Text: Nursing Progress Note Patient Name: Adri Goyal Patient Location: [place] [address] Daily Note: 2235: Pt transferred [facility] to [facility] in stable condition. Oriented to call room, call light function, and fall protocol. Skin check performed with FERNIE Jameson. No skin issues noted at this time. Will continue to monitor. This note was completed by: Martha Taveras RN CASE MANAGEM Observed: 05/23/2018 Status: COMPLETED Source: [place] 12:15 PM [facility] REPOSITORY HNO ID: [id number] Author: Sara Crawford (Sw) Service: Care Management Author Type: Scenic Artist Type: Care Mgt Progress Note Filed: 05/23/2018 12:20 PM Note Text: CARE MANAGEMENT PROGRESS NOTE SERVICE DATE: 05/23/2018 SERVICE TIME: 12:15 PM LOS: 2 days Needs Prior to Discharge: To Be Determined Pt remains in SICU with plans for RNF. Pt has high pain and plans for HAND MOLDER AND CASTER. PT was unable to provide recommendations d/t pain. Anticipate d/c with basic needs pending continued course. Pt stated yesterday she feels she will have no HC needs pending wound care (and pt's spouse is competent to handle her previous complicated wounds). No weekend discharge. Care Management following. SIGNATURE: LANEY Juarez PATIENT NAME: Adri Goyal DATE: May 23, 2018 TIME: 12:15 PM PAGER/CONTACT #: [phone] THERAPY NT Observed: 05/23/2018 Status: COMPLETED Source: [place] 11:34 AM [facility] REPOSITORY HNO ID: [id number] Author: Mya (Pt) Lee Service: Physical Therapy Author Type: Physical Therapist Type: Therapy (PT/OT/Speech/Resp) Filed: 05/23/2018 11:40 AM Note Text: Physical Therapy Evaluation SERVICE DATE: 05/23/2018 SERVICE TIME: 922 to 948 ROOM: [place] [address] Recommended Discharge Disposition: Unable to determine due to critical care status PT Recommendations to Nursing: Sit at edge of bed;With assist of 2 people. PT 6 Clicks Score: 8 Precautions/Activity Restrictions: Abdominal;Lines/Tubes/Drains Precaution/Activity Restriction Comments: Binder ASSESSMENT : Patient presents with activity tolerance and functional mobility limitations d/t post op pain. Therapist providedskilled intervention today for monitoring of vital signs to assess fluctuations with activity due to this being the first trial OOB in SICU. Therapist also provided skilled activity dosing and prescription of safe activity intensity in the critical care setting. Able to just sit EOB today. Pain increasing once sitting and patient unable to tolerate standing/OOB. SICU fellow at bedside for assessment The patient will benefit from skilled PT for functional training focusing on the patient's current impairments, and skilled PT to progress and dose activities within safe limits. Will decide DC plan once pt able tolerate functional mobility OOB. Patient Disposition at Start of Session: Supine in Bed Patient Disposition at End of Session: Supine in Bed;SCDs;Call Ol[place] in Reach Tolerance Limited By Pain Physical Therapy Problem List: Education Deficit;Pain;Decreased Activity Tolerance;Functional Mobility Impairment;Balance Impaired Patient /Caregiver Goals: Go Home Goals for Plan of Care: Rolling with: Independent Transfer supine to/from sit with: Independent Transfer sit to/from stand with: Independent Ambulate with: Independent Distance: 200ft Rehab Potential: Good PLAN: Treatment Frequency (times per week): 4 Current admission Treatment Interventions: Education;Functional Mobility Training Plan of Care developed with: Patient TREATMENT INTERVENTIONS: Therapy Diagnosis: Reduced mobility-other Interventions Provided: Evaluation;Therapeutic Activity (42011) $ Evaluation-Low (60266) Billed Units: 1 unit Therapeutic Activity (17223) Treatment Minutes: 10 1 unit Skilled Intervention(s): -Education to patient : PT plan, mobility plan with nursing, post op precs, benefits of OOB activity -Instruction to nursing regarding: mobility recs -Supine to/from sit: Assist and verbal cues to seuqence logroll -EOB static sitting for 2 minutes with cues to hips for scooting for alignment and comfort -Skilled intervention for ICU line/room setup for safe mobility environment -Skilled intervention for vital sign monitoring to assess hemodynamic and respiratory response to activity to prescribe safe intensity and duration of activity/exercise during above interventions -Skilled intervention and time for positioning in supine after session for safety, comfort, and pressure relief: call light, turned, HOB 30deg Total Timed Code Treatment Minutes: 10 Total Treatment Time (minutes): 27 FUNCTIONAL G CODE: PT 6 Clicks Score: 8 (05/23/18922) Mobility: Walking and Moving Around Current Status (G8978): CM (05/23/18922) Mobility: Walking and Moving Around Goal Status (G8979): CL (05/23/18922) Based on clinical assessment and the score on the 6 Clicks Functional Assessment Tool, the G code and corresponding severity modifiers are documented above. SUBJECTIVE: Current Hospital Course: 57 yo female s/p Open incisional hernia repair with bilateral TAR with mesh. SICU admission post op Reason for Physical Therapy Consult : Crtical care therapy. Relevant Past Medical History: Multiple abdominal sx. DM. HTN. IBS Patient Report: I will try to walk Home Environment Patient Lives With: Significant Other Assistance Available: 24 Hour Entry To Home: No Stairs Number Of Stairs To Bed/Bath: 0 Prior Functional Level: Within Functional Limits OBJECTIVE: Mini Cog Score: 5 (05/23/18922) CURRENT FUNCTIONAL STATUS: Current Functional Mobility Assist Level Additional Information Rolling Moderate Assistance Supine to Sit Moderate Assistance 2 assist Increasing pain once sitting w/o relief despite pre medication - pt crying and holding abdomen. Notified SICU team, additional pain meds given, and pt returned to supine. Pt declined a 2nd attempt EOB Sit to Supine Moderate Assistance Scooting Moderate Assistance Sit to Stand Stand to Sit Bed to Chair Toilet/Commode Gait Stairs Curb Step Car Transfer Please see discipline specific clinical documentation flowsheet for complete details for this therapy evaluation/treatment. SIGNATURE: Mya Howard PT PATIENT NAME: Adri Goyal DATE: May 23, 2018 TIME: 11:34 AM PROGRESS Observed: 05/23/2018 Status: COMPLETED Source: [place] 9:20 AM [facility] REPOSITORY HNO ID: [id number] Author: Colten Bermudez Service: Critical Care Author Type: Anesthesiologist Type: Progress Notes Filed: 05/23/2018 3:41 PM Note Text: SURGICAL INTENSIVE CARE UNIT PROGRESS NOTE SERVICE DATE: May 23, 2018 SERVICE TIME: 9:30 AM POD #: 2 CONSULT: Subjective PROCEDURE: Incisional hernia repair now s/p bilateral TAR with mesh placement MAJOR ISSUES: This is a 57 y/o female with hx of multiple abdominal surgeries complicated by large incisional hernia. She is POD 1 for abdominal hernia repair and is admitted to SICU to be intubated overnight. She was originally not extubated immediately due to tight closure of the abdomen with concern for bucking. Also she had infiltration of her EJ with 70mg of Rocuronium. She was successfully extubated yesterday and is currently on 2 liters NC and is sating in the upper 90s. Objective VITAL SIGNS Temp: 37 ?C (98.6 ?F) Pulse: 93 BP: 124/63 MAP Non Invasive (Mean Arterial Pressure): 86 Resp: 15 SpO2: 99 % Not applicable Current Facility-Administered Medications: acetaminophen 1,000 mg tab(s) (TYLENOL) 1,000 mg ORAL q 6 H oxyCODONE IR 10 mg tab(s) (ROXICODONE) 10 mg ORAL q 3 H PRN enoxaparin 40 mg injection (LOVENOX) 40 mg SUBCUTANEOUS q 24 HR metoprolol tartrate (short acting) 12.5 mg tab(s) (LOPRESSOR) 12.5 mg ORAL q 12 H DULoxetine 60 mg cap(s) (CYMBALTA) 60 mg ORAL AT BEDTIME gabapentin 300 mg cap(s) (NEURONTIN) 300 mg ORAL AT BEDTIME mupirocin 2% 0.5 g nasal ointment (BACTROBAN) 0.[address] 20 mg tab(s) (PROTONIX) 20 mg ORAL DAILY HYDROmorphone 0.4 mg injection (DILAUDID) 0.4 mg INTRAVENOUS q 3 H PRN insulin lispro injection (rapid acting) (HumaLOG) SUBCUTANEOUS q 6 H QUEtiapine 100 mg tab(s) (SEROquel) 100 mg ORAL AT BEDTIME [Aug due to Transfer] lactated ringers infusion 75 mL/hr INTRAVENOUS CONTINUOUS lactated ringers infusion 75 mL/hr INTRAVENOUS CONTINUOUS docusate sodium 100 mg cap(s) (COLACE) 100 mg ORAL BID magnesium hydroxide 400 mg/5 mL 30 mL (MOM) 30 mL ORAL BID ondansetron (PF) 4 mg injection (ZOFRAN) 4 mg INTRAVENOUS q 6 H PRN labetalol 5 mg injection syringe (NORMODYNE) 5 mg INTRAVENOUS q 2 H PRN hydrALAZINE 5 mg injection (APRESOLINE) 5 mg INTRAVENOUS q 6 H PRN potassium chloride iv piggyback 20 mEq/100 mL 20 mEq INTRAVENOUS PRN Or potassium chloride 20-80 mEq CUP 20-80 mEq ORAL/FEEDING TUBE PRN magnesium sulfate in water 2 g in sterile water 50 ml 2 g INTRAVENOUS PRN sodium glycerophosphate 15 mmol in D5W 250 mL (GLYCOPHOS) 15 mmol INTRAVENOUS PRN Or sodium glycerophosphate 30 mmol in D5W 250 mL (GLYCOPHOS) 30 mmol INTRAVENOUS PRN Or sodium glycerophosphate 45 mmol in D5W 250 mL (GLYCOPHOS) 45 mmol INTRAVENOUS PRN NaCl 0.9% 3-5 mL 3-5 mL INTRAVENOUS q 12 H dextrose 40 % 15 g 15 g ORAL PRN Or glucagon 1 mg injection (GLUCAGEN) 1 mg INTRAMUSCULAR PRN Or dextrose 50 % 12.5 g injection 12.5 g INTRAVENOUS PRN General: Pt is laying in bed in no slight distress secondary to pain. She is moving all 4 extremities. Neuro: Awake, Follows commands, Alert, Moving all extremities and PERRL Cardiovascular: Regular rhythm and no murmurs, gallops, or rubs Pulm: Clear to ausculation bilaterally with full breath sounds Abdomen: Soft with large abdominal binder in place. There is slight tenderness with palpation diffusely. 4 JUVENTINO drains are present with serosanguinous drainage Extremities: All four extremities are warm and well perfused. 2+ pulses to bilateral radial and DP pulses. No edema or erythema present to bilateral upper and lower extremities. Intake/Output Summary (Last 24 hours) at 05/23/18920 Last data filed at 05/23/18 0900 Gross per 24 hour Intake 947 ml Output 1435 ml Net -488 ml Current Weight: Weight: 110.7 kg (244 lb 0.8 oz) Admission Weight: Weight: 110.7 kg (244 lb 0.8 oz) RESPIRATORY Mechanical Ventilation: N/A Clinical Exam: Clear to auscultation. Breath Sounds Equal: Yes CXR Findings: Unremarkable chest x-ray INFUSION(S): none Patient Lines Assessed: 1 peripheral lines (right lower extremity) Diagnostic tests reviewed for today's visit: Most recent labs and imaging results. Assessment/Plan Neuro: Awake and Follows commands. Pt has 7/10 abdominal pain that has been only slightly improved with pain meds. Switched patient over to scheduled Tylenol (1 gram) q 6 hours. Pt receiving Dilaudid 0.4mg q4 hours PRN and Oxycodone 10 mg - now q 3 hours. Will switch to Dilaudid HAND MOLDER AND CASTER for more appropriate pain control. Will start home Seroquel (100mg), Duloxetine (60mg), and Gabapentin (300mg). Cardiovascular: Hx of HTN and anxiety. HD stable. Pt on home Metoprolol (12.5 mg BID). Pulm: Pt is sating 97 percent on 2 liters NC this morning - (weaned off for the afternoon). She has been using EzPap every 1/2 hour, will encourage up and out of bed as tolerated today. Renal: BUN and creatinine: 9 and 0.61 respectively with adequate urine output. Continue to follow Is and Os. LR at 75ml/hr GI: Hx of GERD on home Omeprazole (20mg). Pt can start clear liquids today, replete electrolytes as needed. Zofran PRN for nausea. Heme: DVT prophylaxis with ICDs and Lovenox (40mg q day). HANDH stable. Fluid/Electrolyte/Nutrition: Labs hemolyzed, Will repeat today Endo: Hx of T2DM - increased ISS scale from 2 to 3. Blood sugars more under control today (maintain between 140-180) ID: Afebrile. No antibiotics currently Medication and Non-Pharmacologic VTE Prophylaxis/Anticoagulants Anticoagulant AND Antiplatelet Medications Start Dose Route Frequency Ordered Stop 05/22/18 0800 enoxaparin 40 mg injection (LOVENOX) 40 mg SUBCUTANEOUS EVERY 24 HOURS 05/22/18 0704 -- 05/21/18 2030 pneumatic compression stockings ([place], [place]) 05/21/18 171 pneumatic compression stockings ([place]) 05/21/18 1715 activity - mobilize patient ([place], [place]) 05/21/18 0930 pneumatic compression stockings ([place], [place]) VTE Prophylaxis: VTE prophylaxis appropriate PATIENT CHECKLIST ? Deep vein thrombosis prophylaxis administered? Yes. ? Stress ulcer prophylaxis? No. ? HOB elevated 45 degrees? Yes. ? Central line or arterial line present? No ? Pain addressed? Yes. ? Plan reviewed with assigned RN? Yes. ? Nutrition: Enteral- No. TPN- No. PO- clear fluids and medications. ? Family updated within last 24 hours? No. SIGNATURE: Paul Cartwright Ms, Student PATIENT NAME: Adri Goyal DATE: May 23, 2018 TIME: 8:50 AM PAGER/CONTACT #: SICU STAFF PHYSICIAN NOTE OF PERSONAL INVOLVEMENT IN CARE I have reviewed this note. Raghavendra Jorgensen MD PGY-3 Anesthesiology [place] Pager: [phone] SICU STAFF PHYSICIAN NOTE OF PERSONAL INVOLVEMENT IN CARE I have reviewed the history and physical examination and progress note obtained and documented by the resident and I personally participated in the palomo components as documented above regarding the following problems or issues and made appropriate changes. These issues or problems included: Close monitoring of the following has been required: respiratory status IMPRESSION : Acute postoperative respiratory insufficiency-> resolved Ventral hernia S/P repair Postop pain Hyperglycemia PLANs as noted above plus : Respiratory status improved.- continue EzPap, OOB Switch to dilaudid HAND MOLDER AND CASTER in attempt to provide better pain control Restart home Seroquel, Duloxetine, and Gabapentin. Transfer to [facility] I devoted my full attention to the direct care of this patient for the amount of time indicated below. Time I spent with family or surrogate(s) is included only if the patient was incapable of providing the necessary information or participating in medical decision making. Time devoted to teaching and to any procedures I billed separately is not included. Time spent providing evaluation and management services: 25 minutes. SEDATION INTERRUPTION -Not applicable CENTRAL ACCESS -Unnecessary RESTRAINTS -Unnecessary SIGNATURE: Colten Bermudez MD DATE: May 23, 2018 ALLIED HEALTH Observed: 05/23/2018 Status: COMPLETED Source: [place] 7:57 AM [facility] REPOSITORY [facility] ID: [id number] Author: Liz (Rn) Eugenio Murray RN Service: Healing Service Author Type: Registered Nurse Type: Allied Health Filed: 05/23/2018 9:49 AM Note Text: HEALING SERVICES THERAPY NOTE SERVICE DATE: 05/23/2018 SERVICE TIME: 07:57 AM INTERVENTIONAL FOCUS: Emotional Support Relaxation Self-directed Care / Patient Experience Visit With: Patient Urgency of Visit: Routine Type of Visit: Initial Visit ASSESSMENT: Diagnosis: Encounter Diagnosis ICD-10-CM 1. Ventral hernia without obstruction or gangrene K43.9 Added automatically from request for surgery [id number] Did the patient have surgery? Yes Patient Pattern Awareness: Patient: Things mentioned: Practical: Housing. Family/Community: Significant Other, Parents / Family and General Community. Emotional: Stress and Worry. What have you done that has worked to make you feel better? music, driving, computers Sleep and Restfulness Home Sleep Pattern: not very well Hospital Sleep Pattern: not very well Patient's Subjective Experience: [facility] admitted 05-21-18 for hernia repair and reconstructive surgery. Family Support: Family not present. INTERVENTION Verbal consent for touch interventions: N/A [place] Goal(s) of Visit: Intro of HS, providing supportive community, increased relaxation and comfort Patient Education: Education about services provided and self care. Written education materials provided. All questions answered. PRACTITIONER VISUAL ASSESSMENT Facial Body Movement Vocal 0 = Smiling 0 = No movement/ appropriate movement 0 = Positive 1 = Neutral 1 = Restless 1 = Neutral/no vocal 2 = Frown/grimace 2 = Pulling at clothes, etc 2 = Crying, moaning, complaining 3 = Clenched teeth/tension 3 = Thrashing, flailing 3 = Screaming, yelling Before: 1 After: 0 Before: 0 After: 0 Before: 1 After: 0 Patient Selected Intervention(s): Aromatherapy for Personal Use: Inhaler: Lavender Written instructions and precautions provided and reviewed with patient No allergies to nuts, trees, carter, fruits or spices Mind/Body Tools: Breathing Techniques, Imagery and Music Intervention Notes: Pt lying in bed. Provided supportive community for pt who is alone in busy ICU. Created an environment of peace and calm using slow, soothing speech and a quiet, gentle, accepting presence to promote pt's healing. Provided empathetic, reflective listening while pt shared some of her story with this nurse, especially that her spouse has stage 3 cancer. Emotional support provided; verbally allowed and encouraged her feelings and tears. Provided education on the healing quality of tears as a healthy release and assurance that pt is in a safe place to release her tears. Was a listening ear as she shared with this nurse. Introduced HS to pt; various HS modalities explained. Suggested aromatherapy could help provide some relief. Pt chose lavender aromatherapy inhaler to promote sleep and relaxation. No allergies to nuts, trees, carter, fruits or spices noted. Provided instruction on use of aromatherapy inhaler along with a 3-minute intentional relaxation breathing exercise, explaining it usually takes just 3 minutes of slow, deep breathing with intention to stop the stress response and instead promote a relaxation response. Pt chose to consciously focus on the word believe while inhaling and gave it the color of gold. Provided education on the benefits of belly breathing: to increase the body's oxygen levels and thus promote relaxation from the calming and rejuvenating effects of controlled, mindful breathing. Demonstrated for pt; she returned the demonstration correctly with slow, comfortably deep breathing as she had abdominal surgery.. Natacha shared about self-care tools she uses at home including breath work and taking a shower and washing pain and anxiety down the drain adding, it works!. Reinforced the healing benefits of incorporating self-care into ones daily routine. Written HS information provided along with our phone number to call if she would like another HS visit. Pt thanked this nurse warmly for the HS visit. Will return upon request. . MUTUAL PLAN Does the patient feel the mutual goal(s) was met? The pt will try a 3 minute intentional relaxation breathing exercise three times daily as a self-care tool to promote relaxation and comfort Re-visit from Healing Services Team: If requested. Healing Services Practitioners Referrals: N/A Healing Services Team Trans-Disciplinary Rounds Called: No SIGNATURE: Liz Johnson RN PATIENT NAME: Adri Goyal DATE: May 23, 2018 TIME: 9:35 AM PAGER/CONTACT #: [phone] PROGRESS Observed: 05/23/2018 Status: COMPLETED Source: [place] 7:01 AM [facility] REPOSITORY HNO ID: [id number] Author: Mehdi (Res) Forrest Service: General Surgery Author Type: Resident Type: Progress Notes Filed: 05/23/2018 7:15 AM Note Text: General Surgery Progress Note Service Date: May 22, 2018 Patient Name: dAri Goyal Assessment and Plan: Adri Goyal is a 57 year old female with history of multiple abdominal surgeries complicated by large incisional hernia now s/p bilateral TAR with mesh placement on 05/21. Remained intubated and admitted to SICU. Extubated on 05/22. Neuro/Pain: Theresa, diladid PRN Cardio/Resp: Incentive spirometry, On NC PRN FEN/GI: LR @ 75cc/h. Replete Lytes. Diet: Start sips of clears and chips. Zofran available. Renal: Strict I/Os. Urine output adequate. No Hong Heme/DVT PPx: ICDs, Lovenox Wound/ID: No abx Endo: No issues Dispo: Can be transferred to [facility] Mehdi Clayton MD General Surgery, PGY-1 Pager: [phone] (Gen Surg Pager) May 23, 2018 7:03 AM Subjective: No acute events overnight. Having mild nausea, no vomiting. No BF yet. Feels pain not well controlled. Dressing taken down Physical Exam: BP 118/63 Pulse 84 Temp 36.9 ?C (98.4 ?F) (Oral) Resp 12 Wt 110.7 kg (244 lb 0.8 oz) SpO2 100% BMI 35.02 kg/m? GENERAL/NEURO: Sedated HEENT: Normocephalic, Atraumatic CHEST: Unlabored breathing on RA ABDOMEN: Soft, Non-tender, Non-Distended, Incision c/d/i, JPs yielding SS fluid EXTREMITIES: warm, well perfused Labs: CBC, Coags, BMP, Mg, Phos Recent Labs 05/23/18 0059 05/22/18 1616 05/22/18 0120 05/21/18 1814 WBC Unable to assay. Clotted specimen. -- 14.91* 12.37* HB Unable to assay. Clotted specimen. -- 12.1 11.9 HCT Unable to assay. Clotted specimen. -- 36.4 35.5* PLT Unable to assay. Clotted specimen. -- 320 273 INR -- -- 1.0 -- APTT -- -- 23.7 -- NA 136 138 138 140 K Unable to assay. Specimen significantly hemolyzed. 4.0 4.9 4.4 CHLOR 103 104 105 106* CO2 23 23 16* 16* BUN 9 9 11 11 CREAT 0.61 0.71 0.69 0.76 GLUC 183* 192* 284* 271* CA 7.6* 7.6* 8.2* 8.2* MG 2.0 -- 1.8 -- P Unable to assay. Specimen significantly hemolyzed. -- 2.9 -- Liver Function, Amylase, AND Lipase Recent Labs 05/23/18 0059 05/22/18 1616 05/22/18 0120 05/21/18 1814 TPROT 5.8* -- 6.1* 5.5* ALB 3.4* -- 3.8* 3.5* ALT 29 -- 33 29 AST 62* -- 53* 48* ALKPHOS 60 -- 57 57 TBILI 1.5* -- 1.0 1.2 LACT -- 2.2 -- -- Intake and Output: Date 05/21/18 07 - 05/22/18 0659 05/22/18 07 - 05/23/18 0659 Shift 5160-4576 3228-5993 8945-2599 24 Hour Total 2982-8978 5133-9312 7418-8230 24 Hour Total I N T A K E IV 4050 891 4941 LR 150 707 857 OR Crystalloid intake (mL) 3900 3900 Propofol IV 184 184 Shift Total 4050 891 4941 O U T P U T Urine 450 395 845 OR Urine Output 160 160 Tube Output ( Indwelling Urinary Catheter 05/21/18 1145 Hong 16 Fr) 290 395 685 Tubes 205 220 425 Drain/Tube Output (Drain/Tube 05/21/18 1524 Socrates Harkins Left Upper Quadrant Drain #1) 40 50 90 Drain/Tube Output (Drain/Tube 05/21/18 1524 Socrates Harkins Left Lower Quadrant Abdomen Drain #2) 90 85 175 Drain/Tube Output (Drain/Tube 05/21/18 1621 Socrates Harkins Right Upper Quadrant Abdomen Drain #3) 20 15 35 Drain/Tube Output (Drain/Tube 05/21/18 1621 Socrates Harkins Right Lower Quadrant Abdomen Drain #4) 55 70 125 Blood 100 100 Estimated Blood loss 100 100 Shift Total 953 639 8020 Weight (kg) 110.7 110.7 110.7 110.7 110.7 110.7 Current Medications: Current hospital medications: enoxaparin 40 mg injection (LOVENOX) 40 mg SUBCUTANEOUS q 24 HR metoprolol tartrate (short acting) 12.5 mg tab(s) (LOPRESSOR) 12.5 mg ORAL q 12 H DULoxetine 60 mg cap(s) (CYMBALTA) 60 mg ORAL AT BEDTIME gabapentin 300 mg cap(s) (NEURONTIN) 300 mg ORAL AT BEDTIME mupirocin 2% 0.5 g nasal ointment (BACTROBAN) 0.[address] 20 mg tab(s) (PROTONIX) 20 mg ORAL DAILY acetaminophen 1,000 mg tab(s) (TYLENOL) 1,000 mg ORAL q 6 HR HYDROmorphone 0.4 mg injection (DILAUDID) 0.4 mg INTRAVENOUS q 3 H PRN insulin lispro injection (rapid acting) (HumaLOG) SUBCUTANEOUS q 6 H oxyCODONE IR 5-10 mg tab(s) (ROXICODONE) 5-10 mg ORAL q 4 H PRN QUEtiapine 100 mg tab(s) (SEROquel) 100 mg ORAL AT BEDTIME [MAR Hold due to Transfer] lactated ringers infusion 75 mL/hr INTRAVENOUS CONTINUOUS lactated ringers infusion 75 mL/hr INTRAVENOUS CONTINUOUS docusate sodium 100 mg cap(s) (COLACE) 100 mg ORAL BID magnesium hydroxide 400 mg/5 mL 30 mL (MOM) 30 mL ORAL BID ondansetron (PF) 4 mg injection (ZOFRAN) 4 mg INTRAVENOUS q 6 H PRN labetalol 5 mg injection syringe (NORMODYNE) 5 mg INTRAVENOUS q 2 H PRN hydrALAZINE 5 mg injection (APRESOLINE) 5 mg INTRAVENOUS q 6 H PRN potassium chloride iv piggyback 20 mEq/100 mL 20 mEq INTRAVENOUS PRN potassium chloride 20-80 mEq CUP 20-80 mEq ORAL/FEEDING TUBE PRN magnesium sulfate in water 2 g in sterile water 50 ml 2 g INTRAVENOUS PRN sodium glycerophosphate 15 mmol in D5W 250 mL (GLYCOPHOS) 15 mmol INTRAVENOUS PRN sodium glycerophosphate 30 mmol in D5W 250 mL (GLYCOPHOS) 30 mmol INTRAVENOUS PRN sodium glycerophosphate 45 mmol in D5W 250 mL (GLYCOPHOS) 45 mmol INTRAVENOUS PRN NaCl 0.9% 3-5 mL 3-5 mL INTRAVENOUS q 12 H dextrose 40 % 15 g 15 g ORAL PRN glucagon 1 mg injection (GLUCAGEN) 1 mg INTRAMUSCULAR PRN dextrose 50 % 12.5 g injection 12.5 g INTRAVENOUS PRN Prior to Admission Medications: gabapentin (NEURONTIN) 100 mg capsule 300 mg daily at bedtime metoprolol succinate ER (TOPROL XL) 25 mg 24 hr tablet Take 1 tablet by mouth every evening. losartan (COZAAR) 50 mg tablet Take 1 tablet by mouth every evening. amLODIPine (NORVASC) 5 mg tablet Take 2 tablets by mouth every evening. insulin glargine (BASAGLAR KWIKPEN U-100 INSULIN) 100 unit/mL (3 mL) inpn Inject 10 Units subcutaneously every 12 hours. 20 units sq twice daily omeprazole (PRILOSEC) 20 mg capsule Take 1 capsule by mouth every evening. QUEtiapine (SEROQUEL) 100 mg tablet Take 1 tablet by mouth every evening. zolpidem (AMBIEN) 5 mg tablet Take 1 tablet by mouth at bedtime as needed (for insomnia.) for up to 180 days. insulin aspart U-100 (NOVOLOG) 100 unit/mL inpn 15 units before meals + 2 u per 50 >200 TDD 75 units DULoxetine (CYMBALTA) 60 mg capsule Take 1 capsule by mouth daily at bedtime. Lancets lancets Use as instructed to test blood sugars 8 times daily E11.9 LANCETS REGULAR MISC 1 Each as directed. Use 6 x daily Fesoterodine (TOVIAZ) 8 mg Tb24 Take 1 tablet by mouth once daily. aspirin, enteric coated (ASPIRIN, ENTERIC COATED) 81 mg EC tablet Take 1 tablet by mouth every evening. meloxicam (MOBIC) 15 mg tablet Take 1 tablet by mouth every evening. estradiol (ESTRACE) 0.01 % (0.1 mg/gram) vaginal cream 1/2 inch of cream to lower vagina qhs twice weekly clonazePAM (KLONOPIN) 1 mg tablet Take 1 tablet by mouth daily at bedtime for 30 days. potassium chloride (K-TAB) 10 mEq tablet Take 1 tablet by mouth twice daily. Diaper,Brief, Adult,Disposable (PREVAIL ADJUST UNDERWEAR SHABANA LARA) misc 1 Each as needed. Dx: N36.0, K58.9 blood sugar diagnostic (ONETOUCH ULTRA TEST) test strip TEST BLOOD SUGAR 6 TO 8 TIMES DAILY Dx: E11.9 Insulin:yes Blood-Glucose Meter (ONETOUCH ULTRA2) monitoring kit As directed pen needle, diabetic 33 gauge x 5/32 ndle 1 Each as directed. Use with injections 4x daily E11.9 cholecalciferol, Vitamin D3, (VITAMIN D3) 50,000 unit cap capsule Take 1 capsule by mouth once each week. Take with your largest meal of the day Multivits,CalciumAND Minerals-FA 267 mcg tab Take 1 tablet by mouth twice daily. Centrum Adult Chewables MVI with minerals is preferred; must be chewable Blood Sugar Diagnostic, Disc strp 1 Each as directed. CHECK BLOOD GLUCOSE EIGHT TIMES PER DAY/ Patient Active Hospital Problem List: Ventral hernia without obstruction or gangrene (03/26/2018) Incisional hernia (05/21/2018) Ventral hernia (05/21/2018) COMP METABOLIC PANEL Collected: 05/23/2018 Status: F Source: [place] 12:59 AM [facility] REPOSITORY TYPE CODE TESTS RESULT OUT OF REFERENCE UNITS RANGE LAB TP 6.3-8.0 g/dL Low Protein, Total 5.8 LAB ALB 3.9-4.9 g/dL Low Albumin 3.4 LAB CA 8.5-10.2 mg/dL Low Calcium, Total 7.6 LAB TBIL 0.2-1.3 mg/dL Bilirubin, High Total 1.5 LAB ALKP 34-123 U/L Alkaline Phosphatase 60 Result Comment: Results may be falsely decreased due to interference by hemolysis. Suggest reorder as clinically indicated. LAB AST 13-35 U/L High AST 62 Result Comment: Results may be falsely increased due to interference by hemolysis. Suggest reorder as clinically indicated. LAB GLU 74-99 mg/dL High Glucose 183 Result Comment: The [place] [employer] (ADA) provides guidance for cutoff values for fasting glucose and random glucose. The ADA defines fasting as no caloric intake for at least 8 hours. Fas ting plasma glucose results between 100 to 125 mg/dL indicate increased risk for diabetes (prediabetes). Fasting plasma glucose results greater than or equal to 126 mg/dL meet the criteria for diagnosis of diabetes. In the absence of unequivocal hyperglycemia, results should be confirmed by repeat testing. In a patient with classic symptoms of hyperglycemia or hyperglycemic crisis, random plasma glucose results greater than or equal to 200 mg/dL meet the criteria for diagnosis of diabetes. Reference: Standards of Medical Care in Diabetes 2016, [place] [employer]. Diabetes Care. 2016.39(Suppl 1). LAB BUN 7-21 mg/dL BUN 9 LAB CRET 0.58-0.96 mg/dL Creatinine 0.61 LAB NA 136-144 mmol/L Sodium 136 LAB K 3.7-5.1 mmol/L Potassium Unable to assay. Specimen significantly hemolyzed. LAB CL 97-105 mmol/L Chloride 103 LAB CO2 22-30 mmol/L CO2 23 LAB AGAP 9-18 mmol/L Anion Gap 10 LAB ALT 7-38 U/L ALT 29 Result Comment: Results may be falsely increased due to interference by hemolysis. Suggest reorder as clinically indicated. LAB GFRAA eGFR- Amer. >60 LAB GFRNAA . eGFR-All Other Races >60 Result Comment: eGFR (Estimated GFR) Units of measure: mL/min/1.73 meters squared eGFR is derived from the reexpressed MDRD Study equation using the following parameters: serum creatinine, age, gender and race. The creatinine assay has been calibrated to be traceable to IDMS. An eGFR <60 mL/min/1.73m2 for >3 months is consistent with chronic kidney disease. Refer to KDOQI guidelines for clinical interpretation. In patients with unstable renal function, e.g. those with acute kidney injury, the eGFR may not accurately reflect actual GFR. Performed By: #### CMP, MG1, CBC, PHOS #### [facility] [address], [place] [address] MAGNESIUM Collected: 05/23/2018 Status: F Source: [place] 12:59 AM [facility] REPOSITORY TYPE CODE TESTS RESULT OUT OF REFERENCE UNITS RANGE LAB MG 1.7-2.3 mg/dL Magnesium 2.0 Result Comment: Results may be falsely increased due to interference by hemolysis. Suggest reorder as clinically indicated. Performed By: #### CMP, MG1, CBC, PHOS #### [facility] [address] [place], [place] [address] CBC Collected: 05/23/2018 Status: F Source: [place] 12:59 AM [facility] REPOSITORY TYPE CODE TESTS RESULT OUT OF REFERENCE UNITS RANGE LAB WBC 3.70-11.00 k/uL WBC Unable to assay. Clotted specimen. Result Comment: Account Credited Called to DD [id number] K FUNNELL LAB RBC 3.90-5.20 m/uL RBC Unable to assay. Clotted specimen. LAB HGB 11.5-15.5 g/dL Hemoglobin Unable to assay. Clotted specimen. LAB HCT 36.0-46.0 % Hematocrit Unable to assay. Clotted specimen. LAB MCV 80.0-100.0 fL MCV Unable to assay. Clotted specimen. LAB MCH 26.0-34.0 pG MCH Unable to assay. Clotted specimen. LAB MCHC 30.5-36.0 g/dL MCHC Unable to assay. Clotted specimen. LAB RDWCV 11.5-15.0 % RDW-CV Unable to assay. Clotted specimen. LAB PLTCT 150-400 k/uL Platelet Count Unable to assay. Clotted specimen. LAB MPV 9.0-12.7 fL MPV Unable to assay. Clotted specimen. LAB GENNY Recheck Unable to assay. Clotted specimen. LAB REVW Review Unable to assay. Clotted specimen. LAB CBCCOM Comment Unable to assay. Clotted specimen. LAB ABSNUC <0.01 k/uL Absolute nRBC Unable to assay. Clotted specimen. Performed By: #### CMP, MG1, CBC, PHOS #### [facility] [address] [place] [id number] PHOSPHORUS Collected: 05/23/2018 Status: F Source: [place] 12:59 AM [facility] REPOSITORY TYPE CODE TESTS RESULT OUT OF REFERENCE UNITS RANGE LAB PHOS 2.7-4.8 mg/dL Unable to Phosphorus assay. Specimen significantly hemolyzed. Result Comment: Account Credited Results may be falsely increased due to interference by hemolysis. Suggest reorder as clinically indicated. Performed By: #### CMP, MG1, CBC, PHOS #### [facility] [address] [place], [place] [address] BASIC METABOLIC PANL Collected: 05/22/2018 Status: F Source: [place] 4:16 PM [facility] REPOSITORY TYPE CODE TESTS RESULT OUT OF REFERENCE UNITS RANGE LAB GLU 74-99 mg/dL High Glucose 192 Result Comment: The [place] Diabetes [employer] (ADA) provides guidance for cutoff values for fasting glucose and random glucose. The ADA defines fasting as no caloric intake for at least 8 hours. Fas ting plasma glucose results between 100 to 125 mg/dL indicate increased risk for diabetes (prediabetes). Fasting plasma glucose results greater than or equal to 126 mg/dL meet the criteria for diagnosis of diabetes. In the absence of unequivocal hyperglycemia, results should be confirmed by repeat testing. In a patient with classic symptoms of hyperglycemia or hyperglycemic crisis, random plasma glucose results greater than or equal to 200 mg/dL meet the criteria for diagnosis of diabetes. Reference: Standards of Medical Care in Diabetes 2016, [place] [employer]. Diabetes Care. 2016.39(Suppl 1). LAB BUN 7-21 mg/dL BUN 9 LAB CRET 0.58-0.96 mg/dL Creatinine 0.71 LAB NA 136-144 mmol/L Sodium 138 LAB K 3.7-5.1 mmol/L Potassium 4.0 LAB CL 97-105 mmol/L Chloride 104 LAB CO2 22-30 mmol/L CO2 23 LAB AGAP 9-18 mmol/L Anion Gap 11 LAB CA 8.5-10.2 mg/dL Calcium, Low Total 7.6 LAB GFRAA eGFR- Amer. >60 LAB GFRNAA . eGFR-All Other Races >60 Result Comment: eGFR (Estimated GFR) Units of measure: mL/min/1.73 meters squared eGFR is derived from the reexpressed MDRD Study equation using the following parameters: serum creatinine, age, gender and race. The creatinine assay has been calibrated to be traceable to IDMS. An eGFR <60 mL/min/1.73m2 for >3 months is consistent with chronic kidney disease. Refer to KDOQI guidelines for clinical interpretation. In patients with unstable renal function, e.g. those with acute kidney injury, the eGFR may not accurately reflect actual GFR. Performed By: #### BMP, LACT #### [facility] [address] [place], [place] [address] LACTATE Collected: 05/22/2018 Status: F Source: [place] 4:16 PM [facility] REPOSITORY TYPE CODE TESTS RESULT OUT OF REFERENCE UNITS RANGE LAB LACT 0.5-2.2 mmol/L Lactate 2.2 Performed By: #### BMP, LACT #### [facility] [address] [place], [place] [address] NURSING PROG Observed: 05/22/2018 Status: COMPLETED Source: [place] 9:25 AM [facility] REPOSITORY HNO ID: [id number] Author: Erendira (Rn) FERNIE Mcmahon Service: (none) Author Type: Registered Nurse Type: Nursing Progress Note Filed: 05/22/2018 12:46 PM Note Text: Nursing Progress Note Patient Name: Adri Goyal Patient Location: [place] [address] Daily Note: 0925: Pt extubated to room air, lung sounds clear bilaterally. Voice intact. VSS. Will continue to monitor. This note was completed by: Erendira Mcmahon RN PROGRESS Observed: 05/22/2018 Status: COMPLETED Source: [place] 8:49 AM [facility] REPOSITORY HNO ID: [id number] Author: Colten Bermudez Service: Critical Care Author Type: Anesthesiologist Type: Progress Notes Filed: 05/22/2018 2:31 PM Note Text: SURGICAL INTENSIVE CARE UNIT PROGRESS NOTE SERVICE DATE: May 22, 2018 SERVICE TIME: 8:50 AM POD #: 1 CONSULT: Subjective PROCEDURE: Incisional hernia repair now s/p bilateral TAR with mesh placement MAJOR ISSUES: This is a 57 y/o female with hx of multiple abdominal surgeries complicated by large incisional hernia. She is POD 1 for abdominal hernia repair and is admitted to SICU to be intubated overnight. She was originally not extubated immediately due to tight closure of the abdomen with concern for bucking. Also she had infiltration of her EJ with 70mg of Rocuronium. Objective VITAL SIGNS Temp: (!) 38.2 ?C (100.8 ?F) Pulse: 103 BP: 129/62 MAP Non Invasive (Mean Arterial Pressure): 89 Resp: 15 SpO2: 97 % Not applicable Current Facility-Administered Medications: enoxaparin 40 mg injection (LOVENOX) 40 mg SUBCUTANEOUS q 24 HR [MAR Hold due to Transfer] lactated ringers infusion 75 mL/hr INTRAVENOUS CONTINUOUS lactated ringers infusion 75 mL/hr INTRAVENOUS CONTINUOUS docusate sodium 100 mg cap(s) (COLACE) 100 mg ORAL BID magnesium hydroxide 400 mg/5 mL 30 mL (MOM) 30 mL ORAL BID ondansetron (PF) 4 mg injection (ZOFRAN) 4 mg INTRAVENOUS q 6 H PRN acetaminophen 1,000 mg tab(s) (TYLENOL) 1,000 mg ORAL q 6 HR gabapentin 300 mg cap(s) (NEURONTIN) 300 mg ORAL q 8 H propofol infusion (DIPRIVAN) 5-60 mcg/kg/min (Order-Specific) INTRAVENOUS CONTINUOUS labetalol 5 mg injection syringe (NORMODYNE) 5 mg INTRAVENOUS q 2 H PRN hydrALAZINE 5 mg injection (APRESOLINE) 5 mg INTRAVENOUS q 6 H PRN potassium chloride iv piggyback 20 mEq/100 mL 20 mEq INTRAVENOUS PRN Or potassium chloride 20-80 mEq CUP 20-80 mEq ORAL/FEEDING TUBE PRN magnesium sulfate in water 2 g in sterile water 50 ml 2 g INTRAVENOUS PRN sodium glycerophosphate 15 mmol in D5W 250 mL (GLYCOPHOS) 15 mmol INTRAVENOUS PRN Or sodium glycerophosphate 30 mmol in D5W 250 mL (GLYCOPHOS) 30 mmol INTRAVENOUS PRN Or sodium glycerophosphate 45 mmol in D5W 250 mL (GLYCOPHOS) 45 mmol INTRAVENOUS PRN NaCl 0.9% 3-5 mL 3-5 mL INTRAVENOUS q 12 H famotidine 20 mg injection (PEPCID) 20 mg INTRAVENOUS q 12 H fentaNYL 50 mcg/mL 25-50 mcg injection (SUBLIMAZE) 25-50 mcg INTRAVENOUS q 1 H PRN Chlorhexidine Gluconate 0.12 % 15 mL (PERIDEX) 15 mL ORAL QID dextrose 40 % 15 g 15 g ORAL PRN Or glucagon 1 mg injection (GLUCAGEN) 1 mg INTRAMUSCULAR PRN Or dextrose 50 % 12.5 g injection 12.5 g INTRAVENOUS PRN insulin lispro injection (rapid acting) (HumaLOG) SUBCUTANEOUS q 6 H General: Pt is laying in bed in no apparent distress. She is currently intubated with plan to extubate today (Porpofol turned off this morning). She is moving all 4 extremities. Neuro: Awake, Follows commands, Alert, Moving all extremities and PERRL Cardiovascular: Regular rhythm and No murmurs, gallops, or rubs Pulm: Clear to ausculation bilaterally with full breath sounds Abdomen: Soft with large abdominal binder in place. There is slight tenderness with palpation diffusely. 3 JUVENTINO drains are present with serosanguinous drainage Extremities: All four extremities are warm and well perfused. 2+ pulses to bilateral radial and DP pulses. No edema or erythema present to bilateral upper and lower extremities. Intake/Output Summary (Last 24 hours) at 05/22/18 0850 Last data filed at 05/22/18 0800 Gross per 24 hour Intake 4941 ml Output 1500 ml Net 3441 ml Current Weight: Weight: 110.7 kg (244 lb 0.8 oz) Admission Weight: Weight: 110.7 kg (244 lb 0.8 oz) RESPIRATORY Mechanical Ventilation: Vent Mode: PSV Tidal Vol (ml): 550 Freq (bpm): 12 PS (cmH20): 5 PEEP / CPAP (cmH20): 5 FIO2 (%): 30 Clinical Exam: Clear to auscultation. Breath Sounds Equal: Yes CXR Findings: Unremarkable chest x-ray INFUSION(S): Turned off Propofol with plan to extubate this morning Patient Lines Assessed: 2 peripheral lines (right upper and lower extremities) Diagnostic tests reviewed for today's visit: Most recent labs and imaging results. Assessment/Plan Neuro: Awake and Follows commands. Fentanyl Q 1 hour PRN for pain while intubated. When extubated, can start pt on 1gram Tylenol q 6 hours. Pt can also receive Dilaudid 0.2mg q4 hours PRN. Cardiovascular: Hx of HTN and anxiety. HD stable. Will start pt on home Metoprolol. Pulm: Wean to extubate today. Currently patient is on PS with settings of 5 and 5 with an FIO2 of 30% and is pulling good tidal volume. Will encourage bronchopulmonary hygiene with IS, EzPap, and (up and out of bed as tolerated) post extubation Renal: BUN and creatinine: 11 and 0.69 respectively with adequate urine output. Continue to follow Is and Os. LR at 75ml/hr GI: Hx of GERD on home Omeprazole (20mg). Currently on pepcid BID for GI prophylaxis can switch to home med. NPO and replete electrolytes as needed. Zofran PRN. Heme: DVT prophylaxis with ICDs and Lovenox (40mg q day). HANDH stable. Fluid/Electrolyte/Nutrition: NPO for the time being Endo: Hx of T2DM - on ISS scale 2. Blood sugars have been in the mid to upper 200s ID: Afebrile, slight leukocytosis at 14.9. No antibiotics currently Medication and Non-Pharmacologic VTE Prophylaxis/Anticoagulants Anticoagulant AND Antiplatelet Medications Start Dose Route Frequency Ordered Stop 05/22/18 0800 enoxaparin 40 mg injection (LOVENOX) 40 mg SUBCUTANEOUS EVERY 24 HOURS 05/22/18 0704 -- 05/21/18 2030 pneumatic compression stockings ([place], [place]) 05/21/18 1715 pneumatic compression stockings ([place]) 05/21/18 1715 activity - mobilize patient ([place]) 05/21/18 0930 pneumatic compression stockings ([place]) VTE Prophylaxis: VTE prophylaxis appropriate PATIENT CHECKLIST ? Deep vein thrombosis prophylaxis administered? Yes. ? Stress ulcer prophylaxis? Yes. ? HOB elevated 45 degrees? Yes. ? Central line or arterial line present? No ? Pain addressed? Yes. ? Plan reviewed with assigned RN? Yes. ? Nutrition: Enteral- No. TPN- No. PO- No. ? Family updated within last 24 hours? No. SIGNATURE: Paul Cartwright Ms, Student PATIENT NAME: Adri Goyal DATE: May 22, 2018 TIME: 8:50 AM PAGER/CONTACT #: SICU STAFF PHYSICIAN NOTE OF PERSONAL INVOLVEMENT IN CARE I have reviewed the history and physical examination and progress note obtained and documented by the resident and I personally participated in the palomo components as documented above regarding the following problems or issues and made appropriate changes. These issues or problems included: Close monitoring of the following has been required: respiratory status IMPRESSION : Acute postoperative respiratory insufficiency Ventral hernia S/P repair Hyperglycemia PLANs as noted above plus : Extubated without issue this morning. Hgb stable. Urine output good Tighten blood sugar control I devoted my full attention to the direct care of this patient for the amount of time indicated below. Time I spent with family or surrogate(s) is included only if the patient was incapable of providing the necessary information or participating in medical decision making. Time devoted to teaching and to any procedures I billed separately is not included. Time spent providing critical care services: 30 minutes. SEDATION INTERRUPTION -Not applicable CENTRAL ACCESS -Unnecessary RESTRAINTS -Unnecessary SIGNATURE: Colten Bermudez MD DATE: May 22, 2018 CASE MGT INIT Observed: 05/22/2018 Status: COMPLETED Source: [place] 8:20 AM [facility] REPOSITORY HNO ID: [id number] Author: Sara Crawford (Sw) Service: Care Management Author Type: Scenic Artist Type: Care Mgt Initial Assessment Filed: 05/22/2018 10:25 AM Note Text: CARE MANAGEMENT: ASSESSMENT AND DISCHARGE PLAN SERVICE DATE: 05/22/2018 SERVICE TIME: 10:19 AM PRIMARY CARE PHYSICIAN: LEON JIMENEZ MD ADMISSION STATUS: Inpatient Needs Prior to Discharge: To Be Determined 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 Last Admission Date: Previous admit date: 10/17/2015 Is this Within the Past 30 days? No Advance Directive: Current Advance Directive: Health Care Power of Computer Networking Instructor Adjunct;Living Will In Chart: Yes Up To Date and Valid: Yes Health Literacy: 1. How often do you need to have someone help you when you read instructions, pamphlets, or other written material from your doctor or pharmacy? Never - 1 2. How confident are you filling out medical forms by yourself? Extremely - 1 If Patient scores > 3 on either question, the following interventions were put into place: Patient did not score > 3 FUNCTIONAL AND COGNITIVE/BEHAVIORAL PRIOR TO ADMISSION: Baseline Mental Status: Alert AND Oriented, Person, Place , Time and Situation Functional Status: Independent Does Patient Currently Receive Any Community Services or Home Care? None Equipment Prior to Admission: None Has the Patient Been in a Prison Facility in the Past 30 days? N/A SOCIAL: Living Arrangement: Home Lives With: Spouse Financial Resources: N/A Primary Contact: Extended Emergency Contact Information Primary Emergency Contact: Dalia Goyal Address: [address] [address] Mobile Relation: Spouse Secondary Emergency Contact: Sobeida Corbin Mobile Relation: Daughter Supportive: Yes Other Important Patient Contacts: see HCPOA document for many additional contacts Caregiver Assessment: Caregiver is ready, willing and able to meet the patient's needs as recommended by the inter-professional team? TBD Patient's transition needs and plan for meeting these needs: TBD. Anticipate d/c to home with possible HC needs. Does the patient have an acute stroke diagnosis, or has the patient had a stroke during this admission? No Medication Adherence: I am convinced of the importance of my prescription medication: Agree completely - 0 I worry that my prescription medication will do more harm than good to me Disagree completely - 0 I feel financially burdened by my [id number]-ai-rdtmmy expenses for my prescription medication: Disagree completely - 0 Patient is categorized as low risk < 2 Are you interested in bedside delivery of your medications? Yes Food Concerns: In the Last Month, Have You had Trouble Getting Food? No trouble getting food During the Last Month, Have You Worried Whether Your Food Would Run Out Before You Had Enough Money to Buy More? No Is the Patient Psychosocially Complex? No ASSESSMENT AND PLAN: Medical Needs: 2 or more chronic diseases Psychosocial Needs: None FREEDOM OF CHOICE EXPLAINED: N/A POTENTIAL TRANSITION PLANS To Be Determined Pt was admitted to SICU s/p open incisional hernia repair with bilateral TAR with mesh. Pt was extubated this morning. SW met with pt who stated she has had 46 surgeries and previously had a hernia repair. She anticipates returning home but may need HC pending her course. Pt lives with her spouse who has cancer and has wound care needs. Pt stated her daughters are RNs and looking after her spouse at this time. She stated her spouse is very supportive and has assisted with her wound care in the past. Family to transport at d/c. Care Management following. SIGNATURE: LANEY Juarez PATIENT NAME: Adri Goyal DATE: May 22, 2018 TIME: 8:20 AM PAGER/CONTACT #: [phone] ALLIED HEALTH Observed: 05/22/2018 Status: COMPLETED Source: [place] 7:40 AM [facility] REPOSITORY HNO ID: [id number] Author: Liz GonzalezRn) Eugenio Murray RN Service: Healing Service Author Type: Registered Nurse Type: Allied Health Filed: 05/22/2018 8:16 AM Note Text: HEALING SERVICES THERAPY NOTE SERVICE DATE: 05/22/2018 SERVICE TIME: 07:40 AM INTERVENTIONAL FOCUS: Self-directed Care / Patient Experience Visit With: Patient Urgency of Visit: Routine Type of Visit: Patient Not Available HS visit attempted; pt unavailable, sedated. Left HS materials and contact information at bedside. Will return upon request. SIGNATURE: Liz Johnson RN PATIENT NAME: Adri Goyal DATE: May 22, 2018 TIME: 8:16 AM PAGER/CONTACT #: [phone] PROGRESS Observed: 05/22/2018 Status: COMPLETED Source: [place] 6:56 AM [facility] REPOSITORY HNO ID: [id number] Author: Mehdi (Torsten Clayton Service: General Surgery Author Type: Resident Type: Progress Notes Filed: 05/22/2018 7:06 AM Note Text: General Surgery Progress Note Service Date: May 22, 2018 Patient Name: Adri Goyal Assessment and Plan: Adri Goyal is a 57 year old female with history of multiple abdominal surgeries complicated by large incisional hernia now s/p bilateral TAR with mesh placement on 05/21. Remained intubated and admitted to SICU. Neuro/Pain: Sedated, Propofol gtt Cardio/Resp: Incentive spirometry, On VENT support FEN/GI: LR @ 75cc/h. Replete Lytes. Diet: NPO. Zofran available. Renal: Strict I/Os. Urine output adequate. No Hong Heme/DVT PPx: ICDs, Lovenox Wound/ID: No abx Endo: No issues Dispo: Continue SICU status Wean to extubate. Mehdi Clayton MD General Surgery, PGY-1 Pager: [phone] (Gen Surg Pager) May 22, 2018 6:57 AM Subjective: Sedated on VENT support Physical Exam: BP 114/60 Pulse 103 Temp 37.8 ?C (100 ?F) (Oral) Resp 13 Wt 110.7 kg (244 lb 0.8 oz) SpO2 97% BMI 35.02 kg/m? GENERAL/NEURO: Sedated HEENT: Normocephalic, Atraumatic CHEST: Unlabored breathing on RA ABDOMEN: Soft, Non-tender, Non-Distended, Dressing dry and intact EXTREMITIES: warm, well perfused Labs: CBC, Coags, BMP, Mg, Phos Recent Labs 05/22/18 0120 05/21/18 1814 WBC 14.91* 12.37* HB 12.1 11.9 HCT 36.4 35.5* PLT 320 273 INR 1.0 -- APTT 23.7 -- NA 138 140 K 4.9 4.4 CHLOR 105 106* CO2 16* 16* BUN 11 11 CREAT 0.69 0.76 GLUC 284* 271* CA 8.2* 8.2* MG 1.8 -- P 2.9 -- Liver Function, Amylase, AND Lipase Recent Labs 05/22/18 0120 05/21/18 1814 TPROT 6.1* 5.5* ALB 3.8* 3.5* ALT 33 29 AST 53* 48* ALKPHOS 57 57 TBILI 1.0 1.2 Intake and Output: Date 05/21/18 07 - 05/22/1859 05/22/18 0700 - 05/23/18 0659 Shift 2001-3566 7764-9998 3978-5607 24 Hour Total 1776-3065 4424-4337 4472-0183 24 Hour Total I N T A K E IV 4050 891 4941 LR 150 707 857 OR Crystalloid intake (mL) 3900 3900 Propofol IV 184 184 Shift Total 4050 891 4941 O U T P U T Urine 450 395 845 OR Urine Output 160 160 Tube Output ( Indwelling Urinary Catheter 05/21/18 1145 Hong 16 Fr) 290 395 685 Tubes 205 220 425 Drain/Tube Output (Drain/Tube 05/21/18 1524 Socrates Harkins Left Upper Quadrant Drain #1) 40 50 90 Drain/Tube Output (Drain/Tube 05/21/18 1524 Socrates Harkins Left Lower Quadrant Abdomen Drain #2) 90 85 175 Drain/Tube Output (Drain/Tube 05/21/18 1621 Socrates Harkins Right Upper Quadrant Abdomen Drain #3) 20 15 35 Drain/Tube Output (Drain/Tube 05/21/18 1621 Socrates Harkins Right Lower Quadrant Abdomen Drain #4) 55 70 125 Blood 100 100 Estimated Blood loss 100 100 Shift Total 333 272 9124 Weight (kg) 110.7 110.7 110.7 110.7 110.7 110.7 Current Medications: Current hospital medications: [MAR Hold due to Transfer] lactated ringers infusion 75 mL/hr INTRAVENOUS CONTINUOUS lactated ringers infusion 75 mL/hr INTRAVENOUS CONTINUOUS docusate sodium 100 mg cap(s) (COLACE) 100 mg ORAL BID magnesium hydroxide 400 mg/5 mL 30 mL (MOM) 30 mL ORAL BID ondansetron (PF) 4 mg injection (ZOFRAN) 4 mg INTRAVENOUS q 6 H PRN acetaminophen 1,000 mg tab(s) (TYLENOL) 1,000 mg ORAL q 6 HR gabapentin 300 mg cap(s) (NEURONTIN) 300 mg ORAL q 8 H propofol infusion (DIPRIVAN) 5-60 mcg/kg/min (Order-Specific) INTRAVENOUS CONTINUOUS labetalol 5 mg injection syringe (NORMODYNE) 5 mg INTRAVENOUS q 2 H PRN hydrALAZINE 5 mg injection (APRESOLINE) 5 mg INTRAVENOUS q 6 H PRN potassium chloride iv piggyback 20 mEq/100 mL 20 mEq INTRAVENOUS PRN potassium chloride 20-80 mEq CUP 20-80 mEq ORAL/FEEDING TUBE PRN magnesium sulfate in water 2 g in sterile water 50 ml 2 g INTRAVENOUS PRN sodium glycerophosphate 15 mmol in D5W 250 mL (GLYCOPHOS) 15 mmol INTRAVENOUS PRN sodium glycerophosphate 30 mmol in D5W 250 mL (GLYCOPHOS) 30 mmol INTRAVENOUS PRN sodium glycerophosphate 45 mmol in D5W 250 mL (GLYCOPHOS) 45 mmol INTRAVENOUS PRN heparin 5,000 Units injection 5,000 Units SUBCUTANEOUS q 12 H NaCl 0.9% 3-5 mL 3-5 mL INTRAVENOUS q 12 H famotidine 20 mg injection (PEPCID) 20 mg INTRAVENOUS q 12 H fentaNYL 50 mcg/mL 25-50 mcg injection (SUBLIMAZE) 25-50 mcg INTRAVENOUS q 1 H PRN Chlorhexidine Gluconate 0.12 % 15 mL (PERIDEX) 15 mL ORAL QID dextrose 40 % 15 g 15 g ORAL PRN glucagon 1 mg injection (GLUCAGEN) 1 mg INTRAMUSCULAR PRN dextrose 50 % 12.5 g injection 12.5 g INTRAVENOUS PRN insulin lispro injection (rapid acting) (HumaLOG) SUBCUTANEOUS q 6 H Prior to Admission Medications: gabapentin (NEURONTIN) 100 mg capsule 300 mg daily at bedtime metoprolol succinate ER (TOPROL XL) 25 mg 24 hr tablet Take 1 tablet by mouth every evening. losartan (COZAAR) 50 mg tablet Take 1 tablet by mouth every evening. amLODIPine (NORVASC) 5 mg tablet Take 2 tablets by mouth every evening. insulin glargine (BASAGLAR KWIKPEN U-100 INSULIN) 100 unit/mL (3 mL) inpn Inject 10 Units subcutaneously every 12 hours. 20 units sq twice daily omeprazole (PRILOSEC) 20 mg capsule Take 1 capsule by mouth every evening. QUEtiapine (SEROQUEL) 100 mg tablet Take 1 tablet by mouth every evening. zolpidem (AMBIEN) 5 mg tablet Take 1 tablet by mouth at bedtime as needed (for insomnia.) for up to 180 days. insulin aspart U-100 (NOVOLOG) 100 unit/mL inpn 15 units before meals + 2 u per 50 >200 TDD 75 units DULoxetine (CYMBALTA) 60 mg capsule Take 1 capsule by mouth daily at bedtime. Lancets lancets Use as instructed to test blood sugars 8 times daily E11.9 LANCETS REGULAR MISC 1 Each as directed. Use 6 x daily Fesoterodine (TOVIAZ) 8 mg Tb24 Take 1 tablet by mouth once daily. aspirin, enteric coated (ASPIRIN, ENTERIC COATED) 81 mg EC tablet Take 1 tablet by mouth every evening. meloxicam (MOBIC) 15 mg tablet Take 1 tablet by mouth every evening. estradiol (ESTRACE) 0.01 % (0.1 mg/gram) vaginal cream 1/2 inch of cream to lower vagina qhs twice weekly clonazePAM (KLONOPIN) 1 mg tablet Take 1 tablet by mouth daily at bedtime for 30 days. potassium chloride (K-TAB) 10 mEq tablet Take 1 tablet by mouth twice daily. Diaper,Brief, Adult,Disposable (PREVAIL ADJUST UNDERWEAR SHABANA LARA) misc 1 Each as needed. Dx: N36.0, K58.9 blood sugar diagnostic (ONETOUCH ULTRA TEST) test strip TEST BLOOD SUGAR 6 TO 8 TIMES DAILY Dx: E11.9 Insulin:yes Blood-Glucose Meter (ONETOUCH ULTRA2) monitoring kit As directed pen needle, diabetic 33 gauge x 32 ndle 1 Each as directed. Use with injections 4x daily E11.9 cholecalciferol, Vitamin D3, (VITAMIN D3) 50,000 unit cap capsule Take 1 capsule by mouth once each week. Take with your largest meal of the day Multivits,CalciumAND Minerals-FA 267 mcg tab Take 1 tablet by mouth twice daily. Centrum Adult Chewables MVI with minerals is preferred; must be chewable Blood Sugar Diagnostic, Disc strp 1 Each as directed. CHECK BLOOD GLUCOSE EIGHT TIMES PER DAY/ Patient Active Hospital Problem List: Ventral hernia without obstruction or gangrene (03/26/2018) Incisional hernia (05/21/2018) Ventral hernia (05/21/2018) CBC Collected: 05/22/2018 Status: F Source: [place] 1:20 AM [facility] REPOSITORY TYPE CODE TESTS RESULT OUT OF REFERENCE UNITS RANGE LAB WBC 3.70-11.00 k/uL WBC High 14.91 LAB RBC 3.90-5.20 m/uL RBC 4.14 LAB HGB 11.5-15.5 g/dL Hemoglobin 12.1 LAB HCT 36.0-46.0 % Hematocrit 36.4 LAB MCV 80.0-100.0 fL MCV 87.9 LAB MCH 26.0-34.0 pG MCH 29.2 LAB MCHC 30.5-36.0 g/dL MCHC 33.2 LAB RDWCV 11.5-15.0 % RDW-CV 14.6 LAB PLTCT 150-400 k/uL Platelet Count 320 LAB MPV 9.0-12.7 fL MPV 10.5 LAB ABSNUC <0.01 k/uL Absolute nRBC <0.01 Performed By: #### CBC, PT, PTT, CMP, MG1, PHOS #### [facility] [address] [place], [place] [address] PROTIME Collected: 05/22/2018 Status: F Source: [place] 1:20 AM [facility] REPOSITORY TYPE CODE TESTS RESULT OUT OF RANGE REFERENCE UNITS LAB PSEC 9.7-13.0 sec PT Sec 10.3 LAB INR 0.9-1.3 PT INR 1.0 Result Comment: Vitamin K Antagonist (VKA) Therapeutic Range: INR 2 to 3 (Target INR of 2.5) Note: For patients treated with VKA drugs, such as warfarin, the [place] [employer] 2012 Guideline recommends a therapeutic INR range of 2 to 3 (target INR of 2.5). This recommendation includes high-risk patients with antiphospholipid syndrome with previous arterial or venous thromboembolism, current-generation mechanical or bioprosthetic aortic heart valve replacement. Note: Patients with mechanical aortic valve replacement and additional risk factors for thromboembolic events (atrial fibrillation, previous thromboembolism, LV dysfunction, hypercoagulable conditions) or an older generation mechanical AVR (i.e., ball in-Cage) or any mechanical MVR should have a INR therapeutic range of 2.5 to 3.5 (target INR of 3). David VARGHESE, et al. Chest 2012, 141:7S-47S Gurpreet ROTH, et al. [facility] 2017, 70: 252-289 Performed By: #### CBC, PT, PTT, CMP, MG1, PHOS #### [facility] [address] [place], [place] [address] APTT Collected: 05/22/2018 Status: F Source: [place] 1:20 [facility] REPOSITORY TYPE CODE TESTS RESULT OUT OF RANGE REFERENCE UNITS LAB APTT 23.0-32.4 sec APTT 23.7 Result Comment: Unfractionated Heparin Therapeutic Ranges: Standard Heparin Nomogram: 53 to 78 seconds (anti-Xa level of 0.3 to 0.7 U/ml) Low Dose/ACS Nomogram: 49 to 67 seconds (anti-Xa level of 0.2 to 0.5 U/ml) Stroke Treatment Nomogram: 49 to 67 seconds (anti-Xa level of 0.2 to 0.5 U/ml) Note: The APTT therapeutic range has been determined for the current lot of laboratory APTT reagent in use throughout the [facility]. Performed By: #### CBC, PT, PTT, CMP, MG1, PHOS #### [facility] [address] [place], [place] [address] COMP METABOLIC PANEL Collected: 05/22/2018 Status: F Source: [place] 1:20 [facility] REPOSITORY TYPE CODE TESTS RESULT OUT OF REFERENCE UNITS RANGE LAB TP 6.3-8.0 g/dL Low Protein, Total 6.1 LAB ALB 3.9-4.9 g/dL Low Albumin 3.8 LAB CA 8.5-10.2 mg/dL Low Calcium, Total 8.2 LAB TBIL 0.2-1.3 mg/dL Bilirubin, Total 1.0 LAB ALKP 34-123 U/L Alkaline Phosphatase 57 LAB AST 13-35 U/L AST High 53 Result Comment: Results may be falsely increased due to interference by hemolysis. Suggest reorder as clinically indicated. LAB GLU 74-99 mg/dL High Glucose 284 Result Comment: The [place] [employer] (ADA) provides guidance for cutoff values for fasting glucose and random glucose. The ADA defines fasting as no caloric intake for at least 8 hours. Fas ting plasma glucose results between 100 to 125 mg/dL indicate increased risk for diabetes (prediabetes). Fasting plasma glucose results greater than or equal to 126 mg/dL meet the criteria for diagnosis of diabetes. In the absence of unequivocal hyperglycemia, results should be confirmed by repeat testing. In a patient with classic symptoms of hyperglycemia or hyperglycemic crisis, random plasma glucose results greater than or equal to 200 mg/dL meet the criteria for diagnosis of diabetes. Reference: Standards of Medical Care in Diabetes 2016, [place] [employer]. Diabetes Care. 2016.39(Suppl 1). LAB BUN 7-21 mg/dL BUN 11 LAB CRET 0.58-0.96 mg/dL Creatinine 0.69 LAB NA 136-144 mmol/L Sodium 138 LAB K 3.7-5.1 mmol/L Potassium 4.9 Result Comment: Results may be falsely increased due to interference by hemolysis. Suggest reorder as clinically indicated. LAB CL 97-105 mmol/L Chloride 105 LAB CO2 22-30 mmol/L CO2 Low 16 LAB AGAP 9-18 mmol/L Anion Gap 17 LAB ALT 7-38 U/L ALT 33 Result Comment: Results may be falsely increased due to interference by hemolysis. Suggest reorder as clinically indicated. LAB GFRAA eGFR- Amer. >60 LAB GFRNAA . eGFR-All Other Races >60 Result Comment: eGFR (Estimated GFR) Units of measure: mL/min/1.73 meters squared eGFR is derived from the reexpressed MDRD Study equation using the following parameters: serum creatinine, age, gender and race. The creatinine assay has been calibrated to be traceable to IDMS. An eGFR <60 mL/min/1.73m2 for >3 months is consistent with chronic kidney disease. Refer to KDOQI guidelines for clinical interpretation. In patients with unstable renal function, e.g. those with acute kidney injury, the eGFR may not accurately reflect actual GFR. Performed By: #### CBC, PT, PTT, CMP, MG1, PHOS #### [facility] [address] [place] [address] MAGNESIUM Collected: 05/22/2018 Status: F Source: [place] 1:20 AM [facility] REPOSITORY TYPE CODE TESTS RESULT OUT OF REFERENCE UNITS RANGE LAB MG 1.7-2.3 mg/dL Magnesium 1.8 Result Comment: Results may be falsely increased due to interference by hemolysis. Suggest reorder as clinically indicated. Performed By: #### CBC, PT, PTT, CMP, MG1, PHOS #### [place] [address] PHOSPHORUS Collected: 05/22/2018 Status: F Source: [place] 1:20 AM [facility] REPOSITORY TYPE CODE TESTS RESULT OUT OF REFERENCE UNITS RANGE LAB PHOS 2.7-4.8 mg/dL Phosphorus 2.9 Result Comment: Results may be falsely increased due to interference by hemolysis. Suggest reorder as clinically indicated. Performed By: #### CBC, PT, PTT, CMP, MG1, PHOS #### [place] [address] TYPE AND SCREEN Collected: 05/22/2018 Status: F Source: [place] 1:20 AM [facility] TYPE CODE TESTS RESULT OUT OF REFERENCE UNITS RANGE LAB %ABR O ABO/RH(D) POSITIVE LAB % Antibody POS Screen Performed By: #### TSCR #### [place] [address] STAPH AUREUS PCR Collected: 05/22/2018 Status: F Source: [place] 1:20 AM [facility] REPOSITORY TYPE CODE TESTS RESULT OUT OF RANGE REFERENCE UNITS LAB [facility] Nasal S aureus Spec Source LAB MRSRES Negative for MRSA MRSA by PCR. PCR LAB SARES Positive for Abnormal Staph Staphylococcus Alert aureus PCR aureus by PCR. Performed By: #### SAPCR #### [place] [address] XR CHEST 1V FRONTAL Observed: 05/21/2018 Status: F Source: [facility] 7:28 PM [facility] REPOSITORY * * *Final Report* * * DATE OF EXAM: May 21 2018 7:28PM ESX [id number] - XR CHEST 1V FRONTAL PORT / PROCEDURE REASON: Evaluate tube, line or lead position * * * * Physician Interpretation * * * * EXAMINATION: CHEST RADIOGRAPH (PORTABLE SINGLE VIEW AP) Exam Date/Time: 05/21/2018 7:28 PM Clinical History: Evaluate tube, line or lead position, Post- operative / post-procedure assessment, asymptomatic, MQ: [id number] Comparison: 2016 RESULT: See impression. IMPRESSION: Lines, tubes, and devices: Endotracheal tube in satisfactory position Lungs and pleura: The lungs are well-inflated . No pleural effusion or pneumothorax Cardiomediastinal silhouette: Cardiac silhouette unremarkable for the portable projection Other: . Warehouse Hand: PSCB Transcribe Date/Time: May 21 2018 7:29P Dictated by : HENRIQUE HURLEY MD This examination was interpreted and the report reviewed and electronically signed by: HENRIQUE HURLEY MD on May 21 2018 7:30PM EST [id number] NURSING PROG Observed: 05/21/2018 Status: COMPLETED Source: [place] 7:22 PM [facility] REPOSITORY HNO ID: [id number] Author: Keysha (Rn) FERNIE Kuo Service: (none) Author Type: Registered Nurse Type: Nursing Progress Note Filed: 05/21/2018 7:22 PM Note Text: Nursing Progress: Topic: RESTRAINT NON-VIOLENT PATIENT NAME: Adri Goyal PATIENT LOCATION: [place] [address] The patient demonstrates Lack of Understanding/Ability to Comply with Safety Directions, Attempting to Remove Medical Devices Vital to Medical Stability, Impulsive Behavior, Inability to be Redirected, Inability to Retain Information Regarding Safety Directions as evidenced by the following behaviors, attempting to remove medical devices which pose an imminent danger to self or others. The following interventions were attempted but were not effective in protecting the patient's safety: Contraindicated - Imminent Safety Risk Next, a comprehensive assessment was performed and warranted placing the patient in Soft Bilateral Wrists, the least restrictive restraint needed to protect the patient's safety. Ongoing safety assessments and evaluation for earliest removal of restraints will be performed. DATE: May 21, 2018 TIME: 7:22 PM Keysha Kuo RN ANES POST Observed: 05/21/2018 Status: COMPLETED Source: [place] 6:21 PM [facility] REPOSITORY HNO ID: [id number] Author: Mio Obrien Service: Anesthesiology Author Type: Anesthesiologist Type: Anesthesia PostOp Filed: 05/21/2018 6:22 PM Note Text: REGIONAL ANESTHESIOLOGY POST ANESTHESIA NOTE PATIENT NAME: Adri Goyal Vitals: 05/21/18 0930 05/21/18 1754 BP: 150/74 Pulse: 75 104 Resp: 22 Temp: 36.4 ?C (97.5 ?F) 36.3 ?C (97.3 ?F) TempSrc: Temporal Artery Temporal Artery SpO2: 100% No apparent anesthetic complications. The patient is appropriately hydrated with stable respiratory and cardiovascular status. Patient has safe and adequate airway control. The patient has appropriate pain relief and no significant post operative nausea or vomiting. The patient has achieved baseline mental status. Further assessment by Anesthesia Service: None Other remarks: None SIGNATURE: Mio Holbrook MD DATE: May 21, 2018 TIME: 6:22 PM CBC AND DIFFERENTIAL Collected: 05/21/2018 Status: F Source: [place] 6:14 PM [facility] REPOSITORY TYPE CODE TESTS RESULT OUT OF REFERENCE UNITS RANGE LAB WBC 3.70-11.00 k/uL WBC High 12.37 LAB RBC 3.90-5.20 m/uL RBC 4.02 LAB HGB 11.5-15.5 g/dL Hemoglobin 11.9 LAB HCT 36.0-46.0 % Low Hematocrit 35.5 LAB MCV 80.0-100.0 fL MCV 88.3 LAB MCH 26.0-34.0 pG MCH 29.6 LAB MCHC 30.5-36.0 g/dL MCHC 33.5 LAB RDWCV 11.5-15.0 % RDW-CV 14.4 LAB PLTCT 150-400 k/uL Platelet Count 273 LAB MPV 9.0-12.7 fL MPV 10.4 LAB ANEUT % Neut% 85.0 LAB AANEUT 1.45-7.50 k/uL Abs Neut High 10.52 LAB ALYMP % Lymph% 7.0 LAB AALYMP 1.00-4.00 k/uL Low Abs Lymph 0.87 LAB AMONO % [place]% 7.7 LAB AAMONO <0.87 k/uL Abs [place] High 0.95 LAB AEOS % Eosin% 0.1 LAB AAEOS <0.46 k/uL Abs Eosin <0.03 LAB ABASO % Baso% 0.2 LAB AABASO <0.11 k/uL Abs Baso <0.03 LAB AUNRBC 0 /100 WBC NRBCs 0.0 LAB ABNRBC <0.01 k/uL Absolute nRBC <0.01 LAB DTYP DTYPE Auto Diff Performed By: #### CBCDIF, CMP #### [facility] [address] [place], [place] [address] COMP METABOLIC PANEL Collected: 05/21/2018 Status: F Source: [place] 6:14 PM [facility] REPOSITORY TYPE CODE TESTS RESULT OUT OF REFERENCE UNITS RANGE LAB TP 6.3-8.0 g/dL Low Protein, Total 5.5 LAB ALB 3.9-4.9 g/dL Low Albumin 3.5 LAB CA 8.5-10.2 mg/dL Low Calcium, Total 8.2 LAB TBIL 0.2-1.3 mg/dL Bilirubin, Total 1.2 LAB ALKP 34-123 U/L Alkaline Phosphatase 57 LAB AST 13-35 U/L AST High 48 LAB GLU 74-99 mg/dL Glucose High 271 Result Comment: The [place] Diabetes [employer] (ADA) provides guidance for cutoff values for fasting glucose and random glucose. The ADA defines fasting as no caloric intake for at least 8 hours. Fas ting plasma glucose results between 100 to 125 mg/dL indicate increased risk for diabetes (prediabetes). Fasting plasma glucose results greater than or equal to 126 mg/dL meet the criteria for diagnosis of diabetes. In the absence of unequivocal hyperglycemia, results should be confirmed by repeat testing. In a patient with classic symptoms of hyperglycemia or hyperglycemic crisis, random plasma glucose results greater than or equal to 200 mg/dL meet the criteria for diagnosis of diabetes. Reference: Standards of Medical Care in Diabetes 2016, [place] [employer]. Diabetes Care. 2016.39(Suppl 1). LAB BUN 7-21 mg/dL BUN 11 LAB CRET 0.58-0.96 mg/dL Creatinine 0.76 LAB NA 136-144 mmol/L Sodium 140 LAB K 3.7-5.1 mmol/L Potassium 4.4 LAB CL 97-105 mmol/L Chloride High 106 LAB CO2 22-30 mmol/L Low CO2 16 LAB AGAP 9-18 mmol/L Anion Gap 18 LAB ALT 7-38 U/L ALT 29 LAB GFRAA eGFR- Amer. >60 LAB GFRNAA . eGFR-All Other Races >60 Result Comment: eGFR (Estimated GFR) Units of measure: mL/min/1.73 meters squared eGFR is derived from the reexpressed MDRD Study equation using the following parameters: serum creatinine, age, gender and race. The creatinine assay has been calibrated to be traceable to IDMS. An eGFR <60 mL/min/1.73m2 for >3 months is consistent with chronic kidney disease. Refer to KDOQI guidelines for clinical interpretation. In patients with unstable renal function, e.g. those with acute kidney injury, the eGFR may not accurately reflect actual GFR. Performed By: #### CBCDIF, CMP #### [facility] [address] [place], [place] [address] HISTORY PHYSICAL Observed: 05/21/2018 Status: COMPLETED Source: [place] 6:12 PM [facility] REPOSITORY HNO ID: [id number] Author: Saba Mcdaniel Service: Critical Care Author Type: Physician Type: HANDP Filed: 05/21/2018 11:02 PM Note Text: SICU HANDP NOTE SERVICE DATE: 05/21/2018 SERVICE TIME: 6:12 PM Subjective HPI: 57 yo F s/p incisional hernia repair. admitted to sicu for vent management. Primary team would like patient to remain intubated overnight due to tight closure. PMH recurrent symptomatic ventral hernia, HTN, T2DM, GERD, anxiety/depression. PAST MEDICAL HISTORY Diagnosis Date - Abdominal pain, generalized CHRONIC PAIN MANAGEMENT - Bacterial overgrowth syndrome - Bowel disease - Depressive disorder, not elsewhere classified on cymbalta - Diabetes mellitus (HCC) 1980s on insulin since 1982 - Fracture - GERD (gastroesophageal reflux disease) resolved since 2004 - HTN (hypertension) resolved since 2004 - Incisional hernia without mention of obstruction or gangrene - Irritable bowel syndrome - Necrotizing fasciitis (HCC) - Obesity, unspecified 05-23-10 STATED BMI 35.91 Ht: 70 Wt: 250 lbs - Open wound of abdominal wall, anterior, complicated 1 - PMH - PAST MEDICAL HISTORY OF irritable bowel syndrome, necrotizing fasciitis, hypertension, diabetes, GERD, gastritis, - PMH - PAST MEDICAL HISTORY OF 09/2009 left foot break - RSD lower limb seen by pain management PAST SURGICAL HISTORY Procedure Laterality Date - ARTHROS SHLDR DX W/WO SYNV BX Right 05/03/2017 Right shoulder arthroscopy, glenoid chondroplasty - FEEDING TUBE-SPECIFY J-tube - GASTRIC BYPASS, LION-EN-Y 04/27/11 - HYSTERECTOMY HX 2003 - PAST SURGICAL HISTORY OF colostomy, partial colectomy,OSMAR/BSO, right hand tendon rplaced, fatty tumor excision back and thigh,ulnar nreve surgery bilaterally, tonsillectomy - PAST SURGICAL HISTORY OF 2005 repair of fistulas - PAST SURGICAL HISTORY OF 2005 translupe colostomy - PAST SURGICAL HISTORY OF 2004 debredement due to necratizing fascitis - PAST SURGICAL HISTORY OF 2004 hysterectomy - PAST SURGICAL HISTORY OF STATES > 113 ABDOMINAL SURGERIES - PAST SURGICAL HISTORY OF resversal of colostomy - PAST SURGICAL HISTORY OF 10/2015 hernia repair/abdominal muscle repair - REPAIR COMPL ROTATOR CUFF AVULSN,CHR Right 05/03/2017 Glenoid chondroplasty, labtral debridement, SAD - TONSILLECTOMY HX 1977 FAMILY HISTORY Problem Relation Age of Onset - other (Bipolar) Mother - Diabetes Father Type 2 - Heart Father hypertension - Colon Cancer Paternal Grandfather dx'd age 61? - Hypertension Paternal Grandfather - Diabetes Paternal Grandfather Type 2 - Heart Daughter - Breast Cancer Paternal Aunt - other (Hypoplastic Left heart) Son Social History Substance Use Topics - Smoking status: Never Smoker - Smokeless tobacco: Never Used - Alcohol use No PRIOR TO ADMISSION MEDICATIONS @PTAMED@ ALLERGIES Allergen Reactions - Bactrim [Sulfametho* Other: See Comments Cardiac issues, CIPRO IV only - Cipro I.V. [Ciprofl* Hives, Shortness of Breath - Dimetapp [Pseudoeph* Vomiting violently ill when overdosed on it as child - Erythromycin hives ok with zithromax - Keflex [Cephalexin] OK to give zosyn per MD 06-28-06 - Latex Rash rash, breaks out everywhere, n/v , feels weak Can still eat food that is considered for latex allergies No allergic to latex foods per patient isaak 05/07/11 - Tetracycline hives Admission Weight: Objective VITAL SIGNS Temp: 36.3 ?C (97.3 ?F) Pulse: 104 BP: (P) 143/76 Resp: 22 SpO2: 100 % RESPIRATORY Mechanical Ventilation: Vent Mode: PC SIMV Freq (bpm): 12 PS (cmH20): 8 PEEP / CPAP (cmH20): 5 FIO2 (%): 40 PHYSICAL EXAM Neuro: Sedated Pulmonary: Clear to auscultation. Breath Sounds Equal: Yes Cardiovascular: Regular rhythm Abdomen: Soft Extremities: Edema- No Peripheral pulses- Present all extremities CXR Findings: Clear lung mullen Infusions: Propofol Current Facility-Administered Medications: [MAR Hold due to Transfer] lactated ringers infusion 75 mL/hr INTRAVENOUS CONTINUOUS lactated ringers infusion 100 mL/hr INTRAVENOUS (PACU) CONTINUOUS HYDROmorphone 0.2-0.4 mg injection (DILAUDID) 0.2-0.4 mg INTRAVENOUS (PACU) PRN fentaNYL 50 mcg/mL 50 mcg injection (SUBLIMAZE) 50 mcg INTRAVENOUS (PACU) PRN prochlorperazine 10 mg injection (COMPAZINE) 10 mg INTRAVENOUS (PACU) PRN ondansetron (PF) 4 mg injection (ZOFRAN) 4 mg INTRAVENOUS (PACU) PRN lactated ringers infusion 75 mL/hr INTRAVENOUS CONTINUOUS potassium chloride ER 20-40 mEq tab(s) (K-DUR, KLOR-CON) 20- 40 mEq ORAL PRN Or potassium chloride iv piggyback 20 mEq/100 mL 20 mEq INTRAVENOUS PRN magnesium sulfate in water 2 g in sterile water 50 ml 2 g INTRAVENOUS PRN(NO DISPENSE) sodium glycerophosphate 45 mmol in NaCl 0.9% 250 mL (GLYCOPHOS) 45 mmol INTRAVENOUS PRN(NO DISPENSE) ondansetron (PF) 4 mg injection (ZOFRAN) 4 mg INTRAVENOUS q 6 H PRN acetaminophen 1,000 mg tab(s) (TYLENOL) 1,000 mg ORAL q 6 HR clindamycin iv piggyback 600 mg in D5W 50 mL (CLEOCIN) 600 mg INTRAVENOUS q 8 H enoxaparin 40 mg injection (LOVENOX) 40 mg SUBCUTANEOUS DAILY propofol infusion (DIPRIVAN) 5-60 mcg/kg/min (Order-Specific) INTRAVENOUS CONTINUOUS labetalol 5 mg injection syringe (NORMODYNE) 5 mg INTRAVENOUS q 2 H PRN hydrALAZINE 5 mg injection (APRESOLINE) 5 mg INTRAVENOUS q 6 H PRN lactated ringers infusion 5-30 mL/hr INTRAVENOUS CONTINUOUS fentaNYL 50 mcg/mL 25-50 mcg injection (SUBLIMAZE) 25-50 mcg INTRAVENOUS q 1 H PRN dextrose 40 % 15 g 15 g ORAL PRN Or glucagon 1 mg injection (GLUCAGEN) 1 mg INTRAMUSCULAR PRN Or dextrose 50 % 12.5 g injection 12.5 g INTRAVENOUS PRN insulin lispro injection (rapid acting) (HumaLOG) SUBCUTANEOUS q 6 H RECENT LABS Invalid input(s): TRANSFERRIN, PT DATA: Diagnostic tests reviewed for today's visit: Most recent labs and imaging results. Assessment/Plan 57 yo F s/p incisional hernia repair. admitted to sicu for vent management. Primary team would like patient to remain intubated overnight due to tight closure. PMH recurrent symptomatic ventral hernia, HTN, T2DM, GERD, anxiety/depression. Seen and discussed on rounds with SICU staff: Dr. Avendaño Neuro: intubated and sedated CV: HDS not on pressors Pulm: keep intubated overnight per primary team Renal: no active issues, CTM UOP, BUN/Cr GI: s/p incisional hernia repair Heme: No s/s active bleeding, CTM H/H Endo: Hx T2DM: SSI ID: no active issues, afebirle Fluid/Electrolyte/Nutrition: mIVF, NPO, SICU electrolytes protocol Medication and Non-Pharmacologic VTE Prophylaxis/Anticoagulants Anticoagulant AND Antiplatelet Medications Start Dose Route Frequency Ordered Stop 05/21/181999 enoxaparin 40 mg injection (LOVENOX) (Surgical High Risk ) 40 mg SUBCUTANEOUS DAILY 05/21/18 1709 -- 05/21/18 1715 pneumatic compression stockings ([place] 05/21/18 1715 activity - mobilize patient ([place]) 05/21/18 0930 pneumatic compression stockings ([place] PATIENT CHECKLIST ? Are Restraints Necessary? No ? Central Line Present on Admission to SICU? No ? Stress Ulcer Prophylaxis? Yes. ? HOB Elevated 45 Degrees? Yes. ? On Sedation? Yes. Able to reduce: No ? Pain Addressed? Yes. ? Plan Reviewed with assigned RN? Yes. SIGNATURE: Fanny Calix MD, PGY-4 PATIENT NAME: Adri Goyal DATE: May 21, 2018 TIME: 6:12 PM PAGER/CONTACT #: [email or web address] SICU STAFF PHYSICIAN NOTE OF PERSONAL INVOLVEMENT IN CARE I have reviewed the history and physical examination obtained and documented by the resident and I personally participated in the palomo components as documented above regarding the following problems or issues and made appropriate changes below. Upon my evaluation, this patient had a high probability of imminent or life-threatening deterioration, which required my direct attention, intervention, personal management and decision making. PERTINENT HISTORY: 57 yo female with PMH of recurrent symptomatic ventral hernia, HTN, T2DM, GERD, anxiety/depression. PROCEDURE: Open incisional hernia repair with bilateral TAR with mesh EXAMINATION: sedated but arousable, lungs clear bilat, reg rhythm CXR ETT slightly high, lung mullen clear ACTIVE ISSUES AND PLAN: Neuro: Sedated and intubated - cont sedation while intubated Resp: Adv ETT 1-2 cm, cont vent and WTE tomorrow am. Adeq sat on 40% +5 Car: Hemodynamically stable - follow Renal: Cr 0.76 with adeq uop - follow GI / FEN / NTN: NPO, IVF and replete lytes prn Endo: Tight glucose control Heme: Stable H/H and platelets - follow ID: Completed periop abx Prophylaxis Gi AND dvt DIAGNOSiS / ISSUES / PROBLEMS:: Ventral hernia Acute postoperative respiratory insufficiency from hernia repair HTN DM II Close monitoring of the following has been required: respiratory status, cardiac status, urinary output and renal function DISPOSITION: SICU I devoted my full attention to the direct care of this patient for the amount of time indicated below, time includes review of laboratory data, radiology results, discussion with consultants, and monitoring for potential decompensation. Time I spent with family or surrogate(s) is included only if the patient was incapable of providing the necessary information or participating in medical decision making. Time devoted to teaching and to any procedures I billed separately is not included. Time spent providing critical care services: Level 3 SIGNATURE: SABA MCDANIEL MD DATE: May 21, 2018 11:01 PM BRIEF OP NOT Observed: 05/21/2018 Status: COMPLETED Source: [place] 4:40 PM [facility] REPOSITORY HNO ID: [id number] Author: Raghavendra Sidhu (Fel) Service: (none) Author Type: Fellow Type: Brief Op Note Filed: 05/21/2018 4:44 PM Note Text: BRIEF OPERATIVE NOTE SURGERY DATE: 05/21/2018 Incision/Procedure Start Time: 1201 Incision Close/Procedure End Time: 1641 Surgeon(s)/Proceduralist(s) and Programs Assistant(s): MD Raghavendra Rodriguez MD (fellow) Procedures: Open incisional hernia repair with bilateral TAR with mesh Anesthesia: General Findings: 30 x 19cm defect closed with Prolene mesh. 2x Jeromy drains placed above mesh, and 2x Jeromy drains placed in subcutaneous space Estimated Blood Loss: 100 mls Specimens: None Complications: None Preop Diagnosis: incisional hernia Postop Diagnosis: same SIGNATURE: Raghavendra Sidhu MD PATIENT NAME: Adri Goyal DATE: May 21, 2018 TIME: 4:40 PM PAGER/CONTACT #: [id number] OPERATIVE NO Observed: 05/21/2018 Status: COMPLETED Source: [place] 4:36 PM [facility] REPOSITORY O ID: [id number] Author: Dalia Jones Service: General Surgery Author Type: Physician Type: Operative Report Filed: 05/22/2018 1:09 PM Note Text: OPERATIVE REPORT NAME: Adri Goyal [facility] #: [id number] DATE: May 21, 2018 AGE: [age] year old SURGEON 1: DALIA JONES MD SURGEON 2: CLOUD SERVICES ARCHITECT 1: Raghavendra Sidhu MD CLOUD SERVICES ARCHITECT 2: Please note, there was no available qualified resident. Dr. Sidhu was my miller first given the complexity of the procedure. OPERATION: 1. Open right myofascial advancement flap. 2. Open left myofascial advancement flap. 3. Repair of recurrent incisional hernia. 4. Implantation of 30 x 30 cm of Prolene mesh. 5. Resection of skin and subcutaneous tissue. 6. Transverse abdominis block with long acting bupivicaine ANESTHESIA: General. PREOPERATIVE DIAGNOSIS: Recurrent incisional hernia. POSTOPERATIVE DIAGNOSIS: Recurrent incisional hernia. OPERATIVE INDICATIONS: This is a 57 year [id number] female with a histroy of necrotizing fascitis of her abdominal wall and who has undergone multiple prior hernia repairs with mesh. The patient now has a large symptomatic recurrence. The risks, benefits, and outcomes of open complex abdominal wall reconstruction were discussed in detail, understood and the patient wished to proceed. OPERATIVE FINDINGS: 19 x 30 cm defect OPERATIVE PROCEDURE: The patient was identified, brought to the operating room, and placed in supine position. After general endotracheal anesthesia was administered and all appropriate padding secured to the table, the abdomen was prepped and draped in the usual sterile fashion. Preoperative antibiotics and SCDs were administered. We then began with a midline incision, entered the abdomen sharply. I then took down all the bowel and omentum off the entire anterior abdominal wall. The remainder of the bowel looked okay. I then placed towel over the viscera. I measured the defect to be 19 cm wide x 30 cm long. This certainly would not come back together primarily. Then, in order to repair this, I ended up, starting on the left side, incised the posterior rectus sheath, off the rectus muscle, carefully preserving neurovascular bundles, incised the transverse abdominis muscle in the preperitoneal plane, heading back to the psoas down the costal margin down to the center tendon of the diaphragm and into the space of Retzius. This gave us excellent advancement. I then began on the right side, incised the posterior rectus sheath, off the rectus muscle, carefully preserving neurovascular bundles, incised the transverse abdominis muscle, entered the preperitoneal plane, heading back to the psoas on the costal margin down to the center tendon of the diaphragm and heading down into the space of Retzius. We then closed posterior rectus sheath, completely excluding the mesh from the bowel. A bilateral TAP block was performed with Exparel. I then fashioned a 30 x 30 cm piece of Prolene mesh in a julisa configuration using ten #1 PDS sutures, securing it to the xiphoid, tucking down the central tendon of the diaphragm and to the pubis. The mesh was fixated to bilateral Coopers and to the pubis it self. This gave us excellent coverage. I then closed the midline with interrupted figure of eight #1 PDS. I then removed some skin and scar, then closed the skin in layers with vertical mattress nylons at the skin. The patient was awoken from anesthesia and taken to the recovery room in stable condition. Please note, Dr. Dalia Jones, the attending surgeon was present and scrubbed for the entire procedure. INTRAVENOUS FLUIDS: . ESTIMATED BLOOD LOSS:100 cc. DRAINS: 2 JUVENTINO Drains placed above the mesh but below the fascia SPECIMENS: None COMPLICATIONS: None. ERAS Protocol: Yes DALIA JONES MD PT ED Observed: 05/21/2018 Status: COMPLETED Source: [place] 9:34 AM [facility] REPOS[facility] HNO ID: [id number] Author: Yazmin Taylor (Rn) Cristina, RN Service: Nursing Author Type: Registered Nurse Type: Patient Education Filed: 05/21/2018 9:34 AM Note Text: PRE OP LEARNING ASSESSMENT PROCEDURE/SURGERY: SURGERY: Open ventral hernia repair with mesh READINESS TO LEARN COGNITIVE ABILITY: Alert and oriented MOTIVATION TO LEARN: Eager FAMILY SUPPORT: High - Very involved in pt care PATIENT LEARNS BEST BY: Individual Instruction FACTORS AFFECTING LEARNING: None PHYSICAL LIMITATIONS AFFECTING LEARNING: None Electronically Signed By: Yazmin Evans, RN In Department: HOSP MAIN M023 CNOV Observed: 05/01/2018 Status: COMPLETED Source: [place] 2:00 PM [facility] REPOSIT[facility] Office Visit (UROLMN) ADRI GOYAL ([id number]) 1960 F TPN Date Time Provider Department 05/01/18 2:00 PM AMINA JORGENSEN During your visit today, we recorded the following information about you: Temperature Pulse Blood pressure Weight 98.1 degrees 84/minute 128/84 104.6 kg Height 1.778 m Amina Jorgensen MD 05/01/2018 2:14 PM Signed [facility] PATIENT HISTORY AND PHYSICAL EXAM PATIENT INFO: Adri Goyal is a 57 year old female. REFERRING M.D.: Joie Morrow APRN.WATER ATTENDANT [address] [facility] [address] HISTORY CHIEF COMPLAINT: prolapsed bladder HPI : Adri Goyal is a 57 year old female for evaluation of pelvic organ prolapse PMH significant for: HTN, DM (a1c: 5.9, 04/29/18), GERD, obesity PSH significant for: hysterectomy, partial colectomy, hernia repair, colostomy -> then reversal TVH/BSO (2004) complicated by nec fasc S/p anterior abdominal wall resection, numerous abdominal wall reconstructions S/p partial colectomy, colostomy and colostomy reversal. Scheduled for repair of large ventral hernia with mesh for recurrent symptomatic ventral hernia Requesting evaluation for cystocele that if needs corrected may be done concomitantly Denies any pelvic fullness or bulge No pain upon sitting, splinting, or urinary retention Additionally with complaints of SUMAN (UUI > GABY) Moderately bothersome, mainly because she is struggling with fecal incontinence was well GABY: Yes URGENCY: No UI: Yes PADS: yes, uses mainly for fecal incontinence FREQUENCY:>20 per day NOCTURIA: 4 per night STRAINING TO VOID: Yes EMPTIES COMPLETELY: Unsure UTI: No FLUIDS: 60 oz Caffeine: 20 oz SEXUALLY ACTIVE: no DYSPAREUNIA: NO PREGNANCIES: >6, Para 5, Vaginal births 5 Post-menopause: yes Have you had a hysterectomy:YES Postmenopausal bleeding:No Sense of vaginal bulge:NO HEMATURIA HX: No STONES: Yes, No GI: Fecal incontinence Do you have any new weakness,balance or coordination problems:YES Do you have a history of any diagnosed back or Neurological problems:YES COLLIN-6 Frequency:3 UUI:1 GABY:1 Drops:2 Difficulty:0 Pain:3 HISTORIES: PAST MEDICAL HISTORY Diagnosis Date - Abdominal pain, generalized CHRONIC PAIN MANAGEMENT - Bacterial overgrowth syndrome - Bowel disease - Depressive disorder, not elsewhere classified on cymbalta - Diabetes mellitus (HCC) 1980s on insulin since 1982 - Fracture - GERD (gastroesophageal reflux disease) resolved since 2004 - HTN (hypertension) resolved since 2004 - Incisional hernia without mention of obstruction or gangrene - Irritable bowel syndrome - Necrotizing fasciitis (HCC) - Obesity, unspecified 05-23-10 STATED BMI 35.91 Ht: 70 Wt: 250 lbs - Open wound of abdominal wall, anterior, complicated 1 - PMH - PAST MEDICAL HISTORY OF irritable bowel syndrome, necrotizing fasciitis, hypertension, diabetes, GERD, gastritis, - PMH - PAST MEDICAL HISTORY OF 09/2009 left foot break - RSD lower limb seen by pain management PAST SURGICAL HISTORY Procedure Laterality Date - ARTHROS SHLDR DX W/WO SYNV BX Right 05/03/2017 Right shoulder arthroscopy, glenoid chondroplasty - FEEDING TUBE-SPECIFY J-tube - GASTRIC BYPASS, LION-EN-Y 04/27/11 - HYSTERECTOMY HX 2004 - PAST SURGICAL HISTORY OF colostomy, partial colectomy,OSMAR/BSO, right hand tendon rplaced, fatty tumor excision back and thigh,ulnar nreve surgery bilaterally, tonsillectomy - PAST SURGICAL HISTORY OF 2005 repair of fistulas - PAST SURGICAL HISTORY OF 2005 translupe colostomy - PAST SURGICAL HISTORY OF 2004 debredement due to necratizing fascitis - PAST SURGICAL HISTORY OF 2004 hysterectomy - PAST SURGICAL HISTORY OF STATES > 113 ABDOMINAL SURGERIES - PAST SURGICAL HISTORY OF resversal of colostomy - PAST SURGICAL HISTORY OF 10/2015 hernia repair/abdominal muscle repair - REPAIR COMPL ROTATOR CUFF AVULSN,CHR Right 05/03/2017 Glenoid chondroplasty, labtral debridement, SAD - TONSILLECTOMY HX 1977 FAMILY HISTORY Problem Relation Age of Onset - other (Bipolar) Mother - Diabetes Father Type 2 - Heart Father hypertension - Colon Cancer Paternal Grandfather dx'd age 61? - Hypertension Paternal Grandfather - Diabetes Paternal Grandfather Type 2 - Heart Daughter - Breast Cancer Paternal Aunt - other (Hypoplastic Left heart) Son Social History Marital status: Spouse name: dalia Years of education: 13 Number of children: 4 Occupational History Occupation Employer Comment disabled Social History Main Topics Smoking status: Never Smoker Smokeless tobacco: Never Used Alcohol use: No Drug use: No Sexual activity: Yes Partners with: Male The patient's family history is not related to the condition for which the patient is being seen MEDICATIONS: Current Outpatient Prescriptions: losartan (COZAAR) 50 mg tablet Take 1 tablet by mouth every evening. metoprolol succinate ER (TOPROL XL) 25 mg 24 hr tablet Take 1 tablet by mouth every evening. aspirin, enteric coated (ASPIRIN, ENTERIC COATED) 81 mg EC tablet Take 1 tablet by mouth every evening. amLODIPine (NORVASC) 5 mg tablet Take 2 tablets by mouth every evening. insulin glargine (BASAGLAR KWIKPEN U-100 INSULIN) 100 unit/mL (3 mL) inpn Inject 10 Units subcutaneously every 12 hours. 20 units sq twice daily omeprazole (PRILOSEC) 20 mg capsule Take 1 capsule by mouth every evening. meloxicam (MOBIC) 15 mg tablet Take 1 tablet by mouth every evening. QUEtiapine (SEROQUEL) 100 mg tablet Take 1 tablet by mouth every evening. zolpidem (AMBIEN) 5 mg tablet Take 1 tablet by mouth at bedtime as needed (for insomnia.) for up to 180 days. estradiol (ESTRACE) 0.01 % (0.1 mg/gram) vaginal cream 1/2 inch of cream to lower vagina qhs twice weekly clonazePAM (KLONOPIN) 1 mg tablet Take 1 tablet by mouth daily at bedtime for 30 days. insulin aspart U-100 (NOVOLOG) 100 unit/mL inpn 15 units before meals + 2 u per 50 >200 TDD 75 units DULoxetine (CYMBALTA) 60 mg capsule Take 1 capsule by mouth daily at bedtime. potassium chloride (K-TAB) 10 mEq tablet Take 1 tablet by mouth twice daily. gabapentin (NEURONTIN) 100 mg capsule 300 mg daily at bedtime Diaper,Brief, Adult,Disposable (PREVAIL ADJUST UNDERWEAR SHABANA LARA) misc 1 Each as needed. Dx: N36.0, K58.9 blood sugar diagnostic (ONETOUCH ULTRA TEST) test strip TEST BLOOD SUGAR 6 TO 8 TIMES DAILY Dx: E11.9 Insulin:yes Lancets lancets Use as instructed to test blood sugars 8 times daily E11.9 Blood-Glucose Meter (ONETOUCH ULTRA2) monitoring kit As directed pen needle, diabetic 33 gauge x 5/32 ndle 1 Each as directed. Use with injections 4x daily E11.9 LANCETS REGULAR MISC 1 Each as directed. Use 6 x daily cholecalciferol, Vitamin D3, (VITAMIN D3) 50,000 unit cap capsule Take 1 capsule by mouth once each week. Take with your largest meal of the day Multivits,CalciumAND Minerals-FA 267 mcg tab Take 1 tablet by mouth twice daily. Centrum Adult Chewables MVI with minerals is preferred; must be chewable Blood Sugar Diagnostic, Disc strp 1 Each as directed. CHECK BLOOD GLUCOSE EIGHT TIMES PER DAY/ Current Facility-Administered Medications: denosumab 60 mg injection (PROLIA) 60 mg SUBCUTANEOUS Q 6 MONTH ALLERGIES: Bactrim [Sulfamethoxazole]; Cipro I.V. [Ciprofloxacin]; Dimetapp [Pseudoephedrine-Dm]; Erythromycin; Keflex [Cephalexin]; Latex; Tetracycline GENERAL REVIEW OF SYSTEMS: GENERAL: negative for malaise, significant weight loss and fever HEAD AND NECK: No blurred vision or Sjogren's syndrome SKIN: Negative for lesions, rash, and itching. RESPIRATORY: Negative for cough and shortness of breath CARDIOVASCULAR: Negative for chest pain or [place] GI: SEE HPI GENITOURINARY: SEE HPI ENDOCRINE:Positive for diabetes NEURO: Negative for numbness, tingling, tremors MUSCULOSKELETAL: joint pain or swelling, back pain and muscle pain BLOOD/LYMPHATIC: No easy bleeding, easy bruising, transfusion Hx PSYCH: depression PHYSICAL EXAM: VITAL SIGNS: BP 128/84 (BP Site: Left Arm, BP Position: Sitting, BP Cuff Size: Large Adult) Pulse 84 Temp 36.7 ?C (98.1 ?F) (Tympanic) Ht 177.8 cm (5' 10) Wt 104.6 kg (230 lb 11.2 oz) BMI 33.10 kg/m? GENERAL: Well appearing, alert, in no acute distress, well- hydrated, well nourished. HEAD AND NECK: No masses, adenopathy, icterus. Thyroid nonpalpable RESP: NL effort, no retractions or purse-lip breathing. CV: No extremity swelling, varices, edema, pallor, or erythema ABDOMEN: large ventral hernia, extending into the R mons SKIN/LYMPH: No rash, lesions NEURO/PSYCH: Gait normal, AANDOx3 EXTREMITIES: Extremities normal. No deformities, edema, clubbing or skin discoloration. GENITOURINARY: External genitalia: nl. Hair distribution, no lesions Urethra without mass, tenderness, scarring. Vaginal appearance normal without discharge. Estrogen normal limit No tenderness to palpation Cystocele:none Rectocele:none Stress Incontinence: no POP-Q: Prolapse noted: No CYSTOMETRICS: no PVR: 0 mL via bladder US UA: Positive for: Nitrites and Leukest IMPRESSION AND PLAN: -Overactive Bladder (OAB)-We discussed the following treatment modalities for OAB ? Lifestyle modifications including avoiding caffeine intake and dietary bladder irritants, decreasing total fluid intake, timed voiding, etc ? Pelvic floor exercises ? Medical therapy (anticholinergic medication/beta 3 agonist medication) ? Sacral neuromodulation (including risk of infection) - if conservative measures unsuccessful ? At this point, the patient would like to proceed with:Medical therapy (anticholinergic medication/beta 3 agonist medication) will dispense Toviaz. Patient to follow up after hernia repair at her convenience to discuss options further. May be a good candidate for SNM given OAB sxs and fecal incontinence. -Stress Urinary Incontinence (GABY)-We reviewed the following treatment options for GABY ? Observation -urine culture sent for UA suggestive of UTI. Will follow and prescribe antibiotics to treat if necessary. Electronically signed: Ector Aaron MD STAFF NOTE: I have personally modified the HPI AND ROS, performed a PE AND a face to face diagnostic evaluation on this patient AND discussed the above plan. Amina Jorgensen MD [facility] Electronically signed Referring Provider: JOIE MORROW ([facility]) [[id number]] Allergies As of Date: 05/01/2018 Noted Allergy Reaction BACTRIM (SULFAMETHOXAZOLE) 08/13/2011 14 - Other: See Comments Comments: Cardiac issues, CIPRO IV only CIPRO I.V. (CIPROFLOXACIN) 06/28/2006 4 - Hives 12 - Shortness of Breath DIMETAPP (PSEUDOEPHEDRINE-DM) 12/04/2005 11 - Vomiting Comments: violently ill when overdosed on it as child ERYTHROMYCIN 11/29/2005 Comments: hives ok with zithromax KEFLEX (CEPHALEXIN) 11/29/2005 Comments: OK to give zosyn per MD --07 LATEX 11/29/2005 2 - Rash Comments: rash, breaks out everywhere, n/v , feels weak Can still eat food that is considered for latex allergies No allergic to latex foods per patient isaak 05/07/11 TETRACYCLINE 02/05/2006 Comments: hives Date Reviewed: 04/29/2018 Reviewed by: Magy Hatfield RN - Fully Assessed Primary Visit Diagnosis:OAB (overactive bladder) [N32.81] Other Visit Diagnoses:Acute cystitis without hematuria [N30.00] Mixed stress and urge urinary incontinence [N39.46] Order(s):UA DIP, URINE (POC) [4699010] Order #: [id number]. #:[id number] URINE CULTURE [SQURCUL] Order #: [id number]. #:[id number] Fesoterodine (TOVIAZ) 8 mg [id number] 1 tablet by mouth once daily.Disp: 30 tabletRfl: 11 Prescriptions as of 05/01/2018 Sig: FESOTERODINE ER 8 MG TABLET,E* Take 1 tablet by mouth once d* LOSARTAN 50 MG TABLET Take 1 tablet by mouth every * METOPROLOL SUCCINATE ER 25 MG* Take 1 tablet by mouth every * ASPIRIN 81 MG TABLET,DELAYED * Take 1 tablet by mouth every * AMLODIPINE 5 MG TABLET Take 2 tablets by mouth every* INSULIN GLARGINE (U-100) 100 * Inject 10 Units subcutaneousl* OMEPRAZOLE 20 MG CAPSULE,JAG* Take 1 capsule by mouth every* MELOXICAM 15 MG TABLET Take 1 tablet by mouth every * QUETIAPINE 100 MG TABLET Take 1 tablet by mouth every * ZOLPIDEM 5 MG TABLET Take 1 tablet by mouth at bed* ESTRADIOL 0.01% (0.1 MG/GRAM)* 1/2 inch of cream to lower va* CLONAZEPAM 1 MG TABLET Take 1 tablet by mouth daily * INSULIN ASPART U-100 100 UNI* 15 units before meals + 2 u p* DULOXETINE 60 MG CAPSULE,JAG* Take 1 capsule by mouth daily* POTASSIUM CHLORIDE ER 10 MEQ * Take 1 tablet by mouth twice * GABAPENTIN 100 MG CAPSULE 300 mg daily at bedtime DIAPER,BRIEF,ADULT,DISPOSABLE 1 Each as needed. Dx: N36.0,* BLOOD SUGAR DIAGNOSTIC STRIPS TEST BLOOD SUGAR 6 TO 8 TIMES* LANCETS Use as instructed to test blo* BLOOD-GLUCOSE METER KIT As directed PEN NEEDLE, DIABETIC 33 GAUGE* 1 Each as directed. Use with * LANCETS REGULAR MISC 1 Each as directed. Use 6 x d* CHOLECALCIFEROL (VITAMIN D3) * Take 1 capsule by mouth once * MULTIVITAMIN WITH CALCIUM AND* Take 1 tablet by mouth twice * BLOOD SUGAR DIAGNOSTIC, DISC * 1 Each as directed. 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 Essential Hypertension, Benign [I10] INVALID FOR* More... Hyperpotassemia [E87.5] INVALID FOR*04/15/2017 Abdominal pain, left lower quadrant [R10.32] INVALID FOR*04/15/2017 Abdominal pain, right lower quadrant [R10.31] INVALID FOR*04/15/2017 Abdominal Pain, Generalized [R10.84] INVALID FOR* HTN (hypertension) [I10] 04/15/2017 More... GERD (Gastroesophageal Reflux Disease) [K21.9] More... Irritable Bowel Syndrome [K58.9] RSD lower limb [G90.529] 04/15/2017 Open wound of abdominal wall, anterior, complic* 04/15/2017 Depressive disorder, not elsewhere classified [* More... Morbid obesity (HCC) [E66.01] INVALID FOR*12/25/2016 Dietary surveillance and counseling [Z71.3] INVALID FOR*04/15/2017 Gastric bypass status for obesity [Z98.84] INVALID FOR*04/15/2017 More... Nausea AND vomiting [R11.2] INVALID FOR*04/15/2017 Other and unspecified postsurgical nonabsorptio*INVALID FOR*04/15/2017 Osteoporosis [M81.0] INVALID FOR*08/20/2013 On total parenteral nutrition (TPN) [Z78.9] INVALID FOR*04/15/2017 Malabsorption [K90.9] INVALID FOR* Fracture [T14.8XXA] INVALID FOR*04/15/2017 Hernia of abdominal wall [K43.9] INVALID FOR* H/O hyperglycemia [Z86.39] INVALID FOR*04/15/2017 Diarrhea [R19.7] INVALID FOR* Insomnia [G47.00] INVALID FOR* More... Diabetic neuropathy, painful (HCC) [E11.40] INVALID FOR* More... DM (diabetes mellitus) (HCC) [E11.9] INVALID FOR* More... Unspecified intestinal malabsorption [K90.9] INVALID FOR* More... Osteoporosis [M81.0] INVALID FOR* More... Vitamin D deficiency [E55.9] INVALID FOR* More... Post-operative state [Z98.890] INVALID FOR*04/15/2017 Obesity (BMI 30.0-34.9) [E66.9] INVALID FOR* More... Chronic pain in right shoulder [M25.511, G89.29]INVALID FOR* More... Impingement syndrome of right shoulder [M75.41] INVALID FOR* More... Migraines [G43.909] INVALID FOR* DDD (degenerative disc disease), lumbar [M51.36]INVALID FOR* Acute pain of right shoulder [M25.511] INVALID FOR* Ventral hernia without obstruction or gangrene *INVALID FOR* More... Mixed stress and urge urinary incontinence [N39*INVALID FOR* Prescriptions ordered this encounter Disp Refills Start End FESOTERODINE ER 8 MG TABLET,EXTENDED* 30 t* 11 05/01/2018 Class: Print RX Route: ORAL Sig: Take 1 tablet by mouth once daily. Follow-up and Disposition History Recorded Encounter Status:Closed by AMINA JORGENSEN MD on 05/01/18 Observed: 05/01/2018 Status: F Source: [place] URINE CULTURE 1:29 PM [facility] REPOSITORY Sp. Request/Comment: - Specimen received in preservative Culture Result - >=100,000 CFU/ml Klebsiella pneumoniae --> ABNORMAL ALERT ORGANISM: Klebsiella pneumoniae METHOD: Minimum inhibitory concentration(Vitek) Antibiotic Interp MELCHOR Status Ampicillin RESISTANT F Gentamicin SUSCEPTIBLE <=1 F Trimeth sulfameth SUSCEPTIBLE <=20 F Cefazolin SUSCEPTIBLE <=4 F CLSI breakpoints for therapy of uncomplicated UTI's due to E.coli, K.pneumoniae, and P.mirabilis were applied and may be used to predict the activity of oral agents(cefaclor, cefdinir, cefpodoxime, cefp rozil, cefuroxime, cephalexin, loracarbef). Ciprofloxacin SUSCEPTIBLE <=0.25 F Nitrofurantoin SUSCEPTIBLE <=16 F Cefepime SUSCEPTIBLE <=1 F Piperacillin/Tazobac SUSCEPTIBLE <=4 F Ampicillin Sulbact SUSCEPTIBLE 4 F Ceftriaxone SUSCEPTIBLE <=1 F Meropenem SUSCEPTIBLE <=0.25 F Ertapenem SUSCEPTIBLE <=0.5 F Performed By: #### URCUL #### [facility] [id number] PROGRESS Observed: 05/01/2018 Status: COMPLETED Source: [place] 1:07 PM [facility] REPOSITORY HNO ID: [id number] Author: Amina Jorgensen Service: (none) Author Type: Physician Type: Progress Notes Filed: 05/01/2018 2:14 PM Note Text: [facility] PATIENT HISTORY AND PHYSICAL EXAM PATIENT INFO: Adri Goyal is a 57 year old female. REFERRING M.D.: Joie Morrow APRN.WATER ATTENDANT [address] [facility] [id number] HISTORY CHIEF COMPLAINT: prolapsed bladder HPI : Adri Goyal is a 57 year old female for evaluation of pelvic organ prolapse PMH significant for: HTN, DM (a1c: 5.9, 04/29/18), GERD, obesity PSH significant for: hysterectomy, partial colectomy, hernia repair, colostomy -> then reversal TVH/BSO (2004) complicated by nec fasc S/p anterior abdominal wall resection, numerous abdominal wall reconstructions S/p partial colectomy, colostomy and colostomy reversal. Scheduled for repair of large ventral hernia with mesh for recurrent symptomatic ventral hernia Requesting evaluation for cystocele that if needs corrected may be done concomitantly Denies any pelvic fullness or bulge No pain upon sitting, splinting, or urinary retention Additionally with complaints of SUMAN (UUI > GABY) Moderately bothersome, mainly because she is struggling with fecal incontinence was well GABY: Yes URGENCY: No UI: Yes PADS: yes, uses mainly for fecal incontinence FREQUENCY:>20 per day NOCTURIA: 4 per night STRAINING TO VOID: Yes EMPTIES COMPLETELY: Unsure UTI: No FLUIDS: 60 oz Caffeine: 20 oz SEXUALLY ACTIVE: no DYSPAREUNIA: NO PREGNANCIES: >6, Para 5, Vaginal births 5 Post-menopause: yes Have you had a hysterectomy:YES Postmenopausal bleeding:No Sense of vaginal bulge:NO HEMATURIA HX: No STONES: Yes, No GI: Fecal incontinence Do you have any new weakness,balance or coordination problems:YES Do you have a history of any diagnosed back or Neurological problems:YES COLLIN-6 Frequency:3 UUI:1 GABY:1 Drops:2 Difficulty:0 Pain:3 HISTORIES: PAST MEDICAL HISTORY Diagnosis Date - Abdominal pain, generalized CHRONIC PAIN MANAGEMENT - Bacterial overgrowth syndrome - Bowel disease - Depressive disorder, not elsewhere classified on cymbalta - Diabetes mellitus (HCC) 1980s on insulin since 1982 - Fracture - GERD (gastroesophageal reflux disease) resolved since 2004 - HTN (hypertension) resolved since 2004 - Incisional hernia without mention of obstruction or gangrene - Irritable bowel syndrome - Necrotizing fasciitis (HCC) - Obesity, unspecified 05-23-10 STATED BMI 35.91 Ht: 70 Wt: 250 lbs - Open wound of abdominal wall, anterior, complicated 1 - PMH - PAST MEDICAL HISTORY OF irritable bowel syndrome, necrotizing fasciitis, hypertension, diabetes, GERD, gastritis, - PMH - PAST MEDICAL HISTORY OF 09/2009 left foot break - RSD lower limb seen by pain management PAST SURGICAL HISTORY Procedure Laterality Date - ARTHROS SHLDR DX W/WO SYNV BX Right 05/03/2017 Right shoulder arthroscopy, glenoid chondroplasty - FEEDING TUBE-SPECIFY J-tube - GASTRIC BYPASS, LION-EN-Y 04/27/11 - HYSTERECTOMY HX 2003 - PAST SURGICAL HISTORY OF colostomy, partial colectomy,OSMAR/BSO, right hand tendon rplaced, fatty tumor excision back and thigh,ulnar nreve surgery bilaterally, tonsillectomy - PAST SURGICAL HISTORY OF 2005 repair of fistulas - PAST SURGICAL HISTORY OF 2005 translupe colostomy - PAST SURGICAL HISTORY OF 2004 debredement due to necratizing fascitis - PAST SURGICAL HISTORY OF 2004 hysterectomy - PAST SURGICAL HISTORY OF STATES > 113 ABDOMINAL SURGERIES - PAST SURGICAL HISTORY OF resversal of colostomy - PAST SURGICAL HISTORY OF 10/2015 hernia repair/abdominal muscle repair - REPAIR COMPL ROTATOR CUFF AVULSN,CHR Right 05/03/2017 Glenoid chondroplasty, labtral debridement, SAD - TONSILLECTOMY HX 1977 FAMILY HISTORY Problem Relation Age of Onset - other (Bipolar) Mother - Diabetes Father Type 2 - Heart Father hypertension - Colon Cancer Paternal Grandfather dx'd age 61? - Hypertension Paternal Grandfather - Diabetes Paternal Grandfather Type 2 - Heart Daughter - Breast Cancer Paternal Aunt - other (Hypoplastic Left heart) Son Social History Marital status: Spouse name: dalia Years of education: 13 Number of children: 4 Occupational History Occupation Employer Comment disabled Social History Main Topics Smoking status: Never Smoker Smokeless tobacco: Never Used Alcohol use: No Drug use: No Sexual activity: Yes Partners with: Male The patient's family history is not related to the condition for which the patient is being seen MEDICATIONS: Current Outpatient Prescriptions: losartan (COZAAR) 50 mg tablet Take 1 tablet by mouth every evening. metoprolol succinate ER (TOPROL XL) 25 mg 24 hr tablet Take 1 tablet by mouth every evening. aspirin, enteric coated (ASPIRIN, ENTERIC COATED) 81 mg EC tablet Take 1 tablet by mouth every evening. amLODIPine (NORVASC) 5 mg tablet Take 2 tablets by mouth every evening. insulin glargine (BASAGLAR KWIKPEN U-100 INSULIN) 100 unit/mL (3 mL) inpn Inject 10 Units subcutaneously every 12 hours. 20 units sq twice daily omeprazole (PRILOSEC) 20 mg capsule Take 1 capsule by mouth every evening. meloxicam (MOBIC) 15 mg tablet Take 1 tablet by mouth every evening. QUEtiapine (SEROQUEL) 100 mg tablet Take 1 tablet by mouth every evening. zolpidem (AMBIEN) 5 mg tablet Take 1 tablet by mouth at bedtime as needed (for insomnia.) for up to 180 days. estradiol (ESTRACE) 0.01 % (0.1 mg/gram) vaginal cream 1/2 inch of cream to lower vagina qhs twice weekly clonazePAM (KLONOPIN) 1 mg tablet Take 1 tablet by mouth daily at bedtime for 30 days. insulin aspart U-100 (NOVOLOG) 100 unit/mL inpn 15 units before meals + 2 u per 50 >200 TDD 75 units DULoxetine (CYMBALTA) 60 mg capsule Take 1 capsule by mouth daily at bedtime. potassium chloride (K-TAB) 10 mEq tablet Take 1 tablet by mouth twice daily. gabapentin (NEURONTIN) 100 mg capsule 300 mg daily at bedtime Diaper,Brief, Adult,Disposable (PREVAIL ADJUST UNDERWEAR SHABANA LARA) misc 1 Each as needed. Dx: N36.0, K58.9 blood sugar diagnostic (ONETOUCH ULTRA TEST) test strip TEST BLOOD SUGAR 6 TO 8 TIMES DAILY Dx: E11.9 Insulin:yes Lancets lancets Use as instructed to test blood sugars 8 times daily E11.9 Blood-Glucose Meter (ONETOUCH ULTRA2) monitoring kit As directed pen needle, diabetic 33 gauge x 5/32 ndle 1 Each as directed. Use with injections 4x daily E11.9 LANCETS REGULAR MISC 1 Each as directed. Use 6 x daily cholecalciferol, Vitamin D3, (VITAMIN D3) 50,000 unit cap capsule Take 1 capsule by mouth once each week. Take with your largest meal of the day Multivits,CalciumAND Minerals-FA 267 mcg tab Take 1 tablet by mouth twice daily. Centrum Adult Chewables MVI with minerals is preferred; must be chewable Blood Sugar Diagnostic, Disc strp 1 Each as directed. CHECK BLOOD GLUCOSE EIGHT TIMES PER DAY/ Current Facility-Administered Medications: denosumab 60 mg injection (PROLIA) 60 mg SUBCUTANEOUS Q 6 MONTH ALLERGIES: Bactrim [Sulfamethoxazole]; Cipro I.V. [Ciprofloxacin]; Dimetapp [Pseudoephedrine-Dm]; Erythromycin; Keflex [Cephalexin]; Latex; Tetracycline GENERAL REVIEW OF SYSTEMS: GENERAL: negative for malaise, significant weight loss and fever HEAD AND NECK: No blurred vision or Sjogren's syndrome SKIN: Negative for lesions, rash, and itching. RESPIRATORY: Negative for cough and shortness of breath CARDIOVASCULAR: Negative for chest pain or UT GI: SEE HPI GENITOURINARY: SEE HPI ENDOCRINE:Positive for diabetes NEURO: Negative for numbness, tingling, tremors MUSCULOSKELETAL: joint pain or swelling, back pain and muscle pain BLOOD/LYMPHATIC: No easy bleeding, easy bruising, transfusion Hx PSYCH: depression PHYSICAL EXAM: VITAL SIGNS: BP 128/84 (BP Site: Left Arm, BP Position: Sitting, BP Cuff Size: Large Adult) Pulse 84 Temp 36.7 ?C (98.1 ?F) (Tympanic) Ht 177.8 cm (5' 10) Wt 104.6 kg (230 lb 11.2 oz) BMI 33.10 kg/m? GENERAL: Well appearing, alert, in no acute distress, well- hydrated, well nourished. HEAD AND NECK: No masses, adenopathy, icterus. Thyroid nonpalpable RESP: NL effort, no retractions or purse-lip breathing. CV: No extremity swelling, varices, edema, pallor, or erythema ABDOMEN: large ventral hernia, extending into the R mons SKIN/LYMPH: No rash, lesions NEURO/PSYCH: Gait normal, AANDOx3 EXTREMITIES: Extremities normal. No deformities, edema, clubbing or skin discoloration. GENITOURINARY: External genitalia: nl. Hair distribution, no lesions Urethra without mass, tenderness, scarring. Vaginal appearance normal without discharge. Estrogen normal limit No tenderness to palpation Cystocele:none Rectocele:none Stress Incontinence: no POP-Q: Prolapse noted: No CYSTOMETRICS: no PVR: 0 mL via bladder US UA: Positive for: Nitrites and Leukest IMPRESSION AND PLAN: -Overactive Bladder (OAB)-We discussed the following treatment modalities for OAB ? Lifestyle modifications including avoiding caffeine intake and dietary bladder irritants, decreasing total fluid intake, timed voiding, etc ? Pelvic floor exercises ? Medical therapy (anticholinergic medication/beta 3 agonist medication) ? Sacral neuromodulation (including risk of infection) - if conservative measures unsuccessful ? At this point, the patient would like to proceed with:Medical therapy (anticholinergic medication/beta 3 agonist medication) will dispense Toviaz. Patient to follow up after hernia repair at her convenience to discuss options further. May be a good candidate for SNM given OAB sxs and fecal incontinence. -Stress Urinary Incontinence (GABY)-We reviewed the following treatment options for GABY ? Observation -urine culture sent for UA suggestive of UTI. Will follow and prescribe antibiotics to treat if necessary. Electronically signed: Ector Aaron MD STAFF NOTE: I have personally modified the HPI AND ROS, performed a PE AND a face to face diagnostic evaluation on this patient AND discussed the above plan. Amina Jorgensen MD [facility] Electronically signed PROGRESS Observed: 04/29/2018 Status: COMPLETED Source: [place] 2:22 PM [facility] REPOSITORY HNO ID: [id number] Author: Magy Hatfield RN Service: (none) Author Type: (none) Type: Progress Notes Filed: 05/05/2018 9:26 AM Note Text: ANESTHESIA PRE-OPERATIVE ASSESSMENT (PACE) SERVICE DATE: 04/29/2018 SERVICE TIME: 2 pm ASSESSMENT AND PLAN: Adri Goyal is a 57 year old female scheduled for repair of large ventral hernia with mesh per Surgery Request Case in MAIN on 05/21/18. PMH: 1. recurrent symptomatic ventral hernia s/p multiple abdominal surgeries for bowel resection with reconstructed abdominal wall after necrotizing fasciitis. + has dumping syndrome which is chronic + 4 to 6 times per day 2. HTN takes cozaar and toprol xl 3. DM 2. Pt has peripheral neuropathy, takes insulin 4. GERD takes prilosec 5.anxiety/depression- klonopin, seroquel and cymbalta 6. PONV 7. Discussed TAP block with pt [facility]: 3 FC: I METS: Walk a block or two on level ground (2.75 METs) Do moderate work around the house such as vacuuming, sweeping floors, or carrying in groceries (3.50 METs) Climb a flight of stairs or walk up a hill (5.50 METs) Patient denies any chest pain or undue shortness of breath with the above physical activity. Patient WILL accept blood products. BLOOD WORK/PRODUCTS ORDERED: Type and Screen , Con ABO HISTORY OF CHRONIC PAIN: No PAIN MANAGEMENT OPTIONS: Routine/PRN IV and Final pain management plan will be discussed on the day of surgery. ANESTHETIC OPTIONS: General and Final anesthesia management options will be discussed on day of surgery. PRE-OP PLAN ORDERED: Aspiration prophylaxis, Diabetes orders, Day of surgery Labs: accucheck Patient Instructed: ? No solid food or non-clear liquids after midnight. Clear liquids allowed until two hours before scheduled arrival. Vital Signs: BP 113/65 Pulse 75 Temp 36.9 ?C (98.4 ?F) Ht 178 cm (5' 10.08) Wt 103 kg (227 lb 1.2 oz) SpO2 98% BMI 32.51 kg/m? BMI 32.51 kg/(m2) Vital signs completed by: IMPACT Weight acquired: per HANDP. Height acquired: per HANDP Airway Exam: MOUTH OPENING/TMJ: Full jaw ROM MICROGNATHIA/OVERBITE: No MALLAMPATI SCORE is CLASS II UPPER LIP BITE TEST: Class II - Lower incisors can bite the upper lip below the johnson line DENTITION: Edentulous/dentures uppers THYROMENTAL DIST: WNL SHORT NECK: Yes - short/thick secondary to obesity. NECK CIRCUMFERENCE >40 cm: Neck Circumference measured at 44 cm NECK FLEX: Full ROM NECK EXTENSION: Full ROM AIRWAY HISTORY: No history of difficult intubation ARKS AIRWAY DETAIL: Date of ARKS: 10/17/15 Airway Adjunct Oral Size: N/A Mask:Yes. Mask Size: 4 Easy Mask:Yes Intubation: Asleep Airway: ETT Oral Size :7 mm #Trials: 1. Stylette: No. Cricoid pressure:No Intubating Devices: Quiñonez Size: 2. Teaching Purpose: No Grade: I Difficulty Comments: N/A DATA: EKG READING: Unconfirmed - Procedure Date : Apr 29 2018 12:27:19 Edit Date : Apr 29 2018 12:28:03 ? Diagnosis:NORMAL SINUS RHYTHM NORMAL ECG ? OTHER TESTS: ECHO 08/2017: - Exam indication: SVT - The left ventricle is normal in size. There is no left ventricular hypertrophy. Left ventricular systolic function is normal. EF = 66 ? 5% (2D biplane) Normal left ventricular diastolic function. - The right ventricle is normal in size. Right ventricular systolic function is normal. - There are no significant valvular abnormalities. - Estimated right ventricular systolic pressure is 25 mmHg consistent with normal pulmonary artery pressures. Estimated right atrial pressure is 5 mmHg. - Exam was compared with the prior echocardiographic exam performed on 02/10/2013 There is no significant change. ? ? DOBUTAMINE STRESS ECHO 2012 CONCLUSIONS: - Exam indication: Preop evaluation for noncardiac surgery with low/intermediate clinical risk - The dobutamine stress echo was negative for ischemia at 86 % of MPHR. - The left ventricle is normal in size. Left ventricular systolic function is normal. EF = 65 ? 5% (2D biplane) - The right ventricle is normal in size. Right ventricular systolic function is normal. - Normal valvular function on 2D and Doppler parameters. Aortic valve morphology not visualized. - No prior echocardiographic exam available for comparison.? Lab Value Units Date High Low HB 12.5 g/dL 04/29/2018 15.5 11.5 HCT 38.7 % 04/29/2018 46.0 36.0 WBC 6.80 k/uL 04/29/2018 11.00 3.70 PLT 249 k/uL 04/29/2018 400 150 NA 142 mmol/L 04/29/2018 144 136 K 4.7 mmol/L 04/29/2018 5.1 3.7 GLUC 135 mg/dL 04/29/2018 99 74 BUN 15 mg/dL 04/29/2018 21 7 CREAT 0.90 mg/dL 04/29/2018 0.96 0.58 PTSEC 9.9 sec 04/29/2018 13.0 9.7 INR 0.9 no uni* 04/29/2018 1.3 0.9 APTT 24.5 sec 04/29/2018 32.4 23.0 ALT 11 U/L 04/29/2018 38 7 AST 16 U/L 04/29/2018 35 13 TBILI 0.9 mg/dL 04/29/2018 1.3 0.2 TSH No results within date range. Lab Value Units Date High Low HCGQT No results within date range. UHCG No results within date range. HCG, BODY* No results within date range. Lab Value Units Date High Low ABORHD O POSI* no uni* 04/29/2018 ABSCREEN POS no uni* 04/29/2018 Ref Range AND Units 6d ago (04/29/18) 2yr ago (10/13/15) 2yr ago (10/07/15) 2yr ago (09/01/15) 3yr ago (11/12/14) 3yr ago (11/09/14) 3yr ago (10/28/14) ABO/RH(D) O POSITIVE O POSITIVE O POSITIVE O POSITIVE O POSITIVE O POSITIVE O POSITIVE Antibody Screen POS POS POS POS POS POS POS Order Type Blood Bank Blood Bank Blood Bank Blood Bank Blood Bank Blood Bank Blood Bank Blood Bank BB Free Text Comment See Physician's... See Physician's Report under Antibody Interpretation ON 2015. Historical Ab Scr Status POSITIVE POSITIVE POSITIVE POSITIVE Resulting Agency CCM [facility] CCM Specimen Collected: 04/29/18 12:10 PM Last Resulted: 05/01/18 12:57 PM : HBA1C: Hemoglobin A1C (%) Date Value 06/26/2017 7.2 03/27/2017 7.9 Hemoglobin A1C (POCT) (%) Date Value 01/21/2018 7.1 10/15/2017 6.7 ) Patient accompanied by self Case Discussed with Dr Esteves OPTIMIZATION STATUS: Patient optimization pending Labs IMPACT EKG IMPACT SIGNATURE: Magy Hatfield RN PATIENT NAME: Adri Goyal DATE: April 29, 2018 TIME: 2:22 PM PAGER/CONTACT #: 05/05/2018 Addendum (Liz Babb RN) TANDS results to note. Notified Dr. Jones's midlevel of results. URINALYSIS WITH Collected: 04/29/2018 Status: F Source: [place] MICROSCOPIC 12:54 PM [facility] REPOSITORY TYPE CODE TESTS RESULT OUT OF RANGE REFERENCE UNITS LAB UCOL Yellow Color Yellow LAB [facility] Clear Clarity Abnormal Cloudy Alert LAB UGLUC Negative mg/dL Glucose, Urine Negative LAB UBIL Negative Bilirubin, Urine Negative LAB UKET Negative Ketones, Urine Negative LAB USPG 1.005-1.030 Specific [place], Ur 1.023 LAB UHGB Negative Hemoglobin/Blood, Negative Ur LAB UPH 4.5-8.0 pH 7.0 LAB UPROT Negative mg/dL Protein, Abnormal Urine 100 Alert LAB UUROB Normal Urobilinogen Normal LAB UNITR Negative Nitrites Abnormal Positive Alert LAB ULKEST Negative Leukest Abnormal 2+ Alert LAB UCOM Comments SEE COMMENT Result Comment: N/A LAB UMCOM Urine SEE Melchor Comment COMMENT Result Comment: N/A LAB UWBC 0-5 /HPF Abnormal WBC Alert 11-25 LAB URBC 0-3 /HPF RBC 0-3 LAB UEPI /HPF Epithelial Cells SEE COMMENT Result Comment: Few Squamous Epithelial Cells Few Non-Squamous Epithelial Cells Performed By: #### UAWMIC #### [facility] [address] [place], [place] [address] ECG COMPLETE W Observed: 04/29/2018 Status: F Source: [place] INTERPRETATION 12:27 PM [facility] REPOSITORY NAME : ADRI GOYAL PID : [id number] : 1960 Gender : Female Race : ORD : [id number] Procedure Date : Apr 29 2018 12:27:19 Edit Date : May 01 2018 14:03:25 Diagnosis:NORMAL SINUS RHYTHM NORMAL ECG Confirmed by Yariel MORENO M.D. ([id number]) on 05/01/2018 1:54:16 PM Ventricular Rate : 69 BPM Atrial Rate : 69 BPM P-R Interval : 142 ms QRS Duration : 84 ms Q-T Interval : 388 ms QTC Calculation(Bezet) : 415 ms P [place] : 64 degrees R [place] : -2 degrees T [place] : 33 degrees Test Reason : Location : 119 : A17 Overread By : Yariel MORENO M.D. Edited By : Yariel MORENO M.D. Referred By : DALIA JONES Acquired by : SOPHIE RAZO CBC AND DIFFERENTIAL Collected: 04/29/2018 Status: F Source: [place] 12:10 PM [facility] REPOSITORY TYPE CODE TESTS RESULT OUT OF REFERENCE UNITS RANGE LAB WBC 3.70-11.00 k/uL WBC 6.80 LAB RBC 3.90-5.20 m/uL RBC 4.37 LAB HGB 11.5-15.5 g/dL Hemoglobin 12.5 LAB HCT 36.0-46.0 % Hematocrit 38.7 LAB MCV 80.0-100.0 fL MCV 88.6 LAB MCH 26.0-34.0 pG MCH 28.6 LAB MCHC 30.5-36.0 g/dL MCHC 32.3 LAB RDWCV 11.5-15.0 % RDW-CV 14.3 LAB PLTCT 150-400 k/uL Platelet Count 249 LAB MPV 9.0-12.7 fL MPV 9.9 LAB ANEUT % Neut% 72.0 LAB AANEUT 1.45-7.50 k/uL Abs Neut 4.88 LAB ALYMP % Lymph% 20.7 LAB AALYMP 1.00-4.00 k/uL Abs Lymph 1.41 LAB AMONO % [place]% 4.9 LAB AAMONO <0.87 k/uL Abs [place] 0.33 LAB AEOS % Eosin% 2.1 LAB AAEOS <0.46 k/uL Abs Eosin 0.14 LAB ABASO % Baso% 0.3 LAB AABASO <0.11 k/uL Abs Baso <0.03 LAB AUNRBC 0 /100 WBC NRBCs 0.0 LAB ABNRBC <0.01 k/uL Absolute nRBC <0.01 LAB DTYP DTYPE Auto Diff Performed By: #### CBCDIF, PT, PTT, CMP, HBA1C #### [facility] [address] [place], [place] [address] PROTIME Collected: 04/29/2018 Status: F Source: [place] 12:10 PM [facility] REPOSITORY TYPE CODE TESTS RESULT OUT OF RANGE REFERENCE UNITS LAB PSEC 9.7-13.0 sec PT Sec 9.9 LAB INR 0.9-1.3 PT INR 0.9 Result Comment: Vitamin K Antagonist (VKA) Therapeutic Range: INR 2 to 3 (Target INR of 2.5) Note: For patients treated with VKA drugs, such as warfarin, the [place] [employer] 2012 Guideline recommends a therapeutic INR range of 2 to 3 (target INR of 2.5). This recommendation includes high-risk patients with antiphospholipid syndrome with previous arterial or venous thromboembolism, current-generation mechanical or bioprosthetic aortic heart valve replacement. Note: Patients with mechanical aortic valve replacement and additional risk factors for thromboembolic events (atrial fibrillation, previous thromboembolism, LV dysfunction, hypercoagulable conditions) or an older generation mechanical AVR (i.e., ball in-Cage) or any mechanical MVR should have a INR therapeutic range of 2.5 to 3.5 (target INR of 3). David GH, et al. Chest 2012, 141:7S-47S Gurpreet RA, et al. [facility] 2017, 70: 252-289 Performed By: #### CBCDIF, PT, PTT, CMP, HBA1C #### [facility] [address] [place], [place] [address] APTT Collected: 04/29/2018 Status: F Source: [place] 12:10 PM [facility] REPOSITORY TYPE CODE TESTS RESULT OUT OF RANGE REFERENCE UNITS LAB APTT 23.0-32.4 sec APTT 24.5 Result Comment: Unfractionated Heparin Therapeutic Ranges: Standard Heparin Nomogram: 53 to 78 seconds (anti-Xa level of 0.3 to 0.7 U/ml) Low Dose/ACS Nomogram: 49 to 67 seconds (anti-Xa level of 0.2 to 0.5 U/ml) Stroke Treatment Nomogram: 49 to 67 seconds (anti-Xa level of 0.2 to 0.5 U/ml) Note: The APTT therapeutic range has been determined for the current lot of laboratory APTT reagent in use throughout the [facility]. Performed By: #### CBCDIF, PT, PTT, CMP, HBA1C #### [facility] [address] [place], [place] [address] COMP METABOLIC PANEL Collected: 04/29/2018 Status: F Source: [place] 12:10 PM [facility] REPOSITORY TYPE CODE TESTS RESULT OUT OF REFERENCE UNITS RANGE LAB TP 6.3-8.0 g/dL Protein, Total 7.1 LAB ALB 3.9-4.9 g/dL Albumin 4.6 LAB CA 8.5-10.2 mg/dL Calcium, Total 9.0 LAB TBIL 0.2-1.3 mg/dL Bilirubin, Total 0.9 LAB ALKP 34-123 U/L Alkaline Phosphatase 82 LAB AST 13-35 U/L AST 16 LAB GLU 74-99 mg/dL Glucose High 135 Result Comment: The [place] [employer] (ADA) provides guidance for cutoff values for fasting glucose and random glucose. The ADA defines fasting as no caloric intake for at least 8 hours. Fas ting plasma glucose results between 100 to 125 mg/dL indicate increased risk for diabetes (prediabetes). Fasting plasma glucose results greater than or equal to 126 mg/dL meet the criteria for diagnosis of diabetes. In the absence of unequivocal hyperglycemia, results should be confirmed by repeat testing. In a patient with classic symptoms of hyperglycemia or hyperglycemic crisis, random plasma glucose results greater than or equal to 200 mg/dL meet the criteria for diagnosis of diabetes. Reference: Standards of Medical Care in Diabetes 2016, [place] [employer]. Diabetes Care. 2016.39(Suppl 1). LAB BUN 7-21 mg/dL BUN 15 LAB CRET 0.58-0.96 mg/dL Creatinine 0.90 LAB NA 136-144 mmol/L Sodium 142 LAB K 3.7-5.1 mmol/L Potassium 4.7 LAB CL 97-105 mmol/L Chloride 104 LAB CO2 22-30 mmol/L CO2 24 LAB AGAP 9-18 mmol/L Anion Gap 14 LAB ALT 7-38 U/L ALT 11 LAB GFRAA eGFR- Amer. >60 LAB GFRNAA . eGFR-All Other Races >60 Result Comment: eGFR (Estimated GFR) Units of measure: mL/min/1.73 meters squared eGFR is derived from the reexpressed MDRD Study equation using the following parameters: serum creatinine, age, gender and race. The creatinine assay has been calibrated to be traceable to IDMS. An eGFR <60 mL/min/1.73m2 for >3 months is consistent with chronic kidney disease. Refer to KDOQI guidelines for clinical interpretation. In patients with unstable renal function, e.g. those with acute kidney injury, the eGFR may not accurately reflect actual GFR. Performed By: #### CBCDIF, PT, PTT, CMP, HBA1C #### [facility] [address] [place], [place] [address] HEMOGLOBIN A1C Collected: 04/29/2018 Status: F Source: [place] 12:10 PM [facility] REPOSITORY TYPE CODE TESTS RESULT OUT OF REFERENCE UNITS RANGE LAB HGBA1C 4.3-5.6 % High Hemoglobin A1c 5.9 Result Comment: [place] [employer] guidelines indicate that patients with HgbA1c in the range 5.7-6.4% are at increased risk for development of diabetes, and intervention by lifestyle modification may be beneficial. HgbA1c greater or equal to 6.5% is considered diagnostic of diabetes. LAB HBA0 mg/dL Est. Average Glucose 123 Result Comment: eAG: (Estimated average glucose) is a calculated value from HgbA1c and is airport representative of the average blood glucose level in the last 2-3 month period. Performed By: #### CBCDIF, PT, PTT, CMP, HBA1C #### [facility] [address] [place], [place] [address] TYPE AND SCR (30D) Collected: 04/29/2018 Status: F Source: [place] 12:10 PM [facility] REPOSITORY TYPE CODE TESTS RESULT OUT OF REFERENCE UNITS RANGE LAB %ABR O ABO/RH(D) POSITIVE LAB % Antibody POS Screen Performed By: #### [id number] #### [facility] [address] [place], [place] [address] CNOV Observed: 04/29/2018 Status: COMPLETED Source: [place] 11:30 AM [facility] REPOSITORY Office Visit (PSSCMN) ADRI GOYAL ([id number]) 1960 F TPN Date Time Provider Department 04/29/18 11:30 AM [facility] During your visit today, we recorded the following information about you: Temperature Pulse Blood pressure Weight 98.4 degrees 75/minute 113/65 103 kg Height 1.78 m Magy Hatfield RN 04/29/2018 2:31 PM Addendum ANESTHESIA PRE-OPERATIVE ASSESSMENT (PACE) SERVICE DATE: 04/29/2018 SERVICE TIME: 2 pm ASSESSMENT AND PLAN: Adri Rahel Jay Jay is a 57 year old female scheduled for repair of large ventral hernia with mesh per Surgery Request Case in MAIN on 05/21/18. PMH: 1. recurrent symptomatic ventral hernia s/p multiple abdominal surgeries for bowel resection with reconstructed abdominal wall after necrotizing fasciitis. + has dumping syndrome which is chronic + 4 to 6 times per day 2. HTN takes cozaar and toprol xl 3. DM 2. Pt has peripheral neuropathy, takes insulin 4. GERD takes prilosec 5.anxiety/depression- klonopin, seroquel and cymbalta 6. PONV 7. Discussed TAP block with pt [employer]: 3 FC: I METS: Walk a block or two on level ground (2.75 METs) Do moderate work around the house such as vacuuming, sweeping floors, or carrying in groceries (3.50 METs) Climb a flight of stairs or walk up a hill (5.50 METs) Patient denies any chest pain or undue shortness of breath with the above physical activity. Patient WILL accept blood products. BLOOD WORK/PRODUCTS ORDERED: Type and Screen , Con ABO HISTORY OF CHRONIC PAIN: No PAIN MANAGEMENT OPTIONS: Routine/PRN IV and Final pain management plan will be discussed on the day of surgery. ANESTHETIC OPTIONS: General and Final anesthesia management options will be discussed on day of surgery. PRE-OP PLAN ORDERED: Aspiration prophylaxis, Diabetes orders, Day of surgery Labs: accucheck Patient Instructed: ? No solid food or non-clear liquids after midnight. Clear liquids allowed until two hours before scheduled arrival. Vital Signs: BP 113/65 Pulse 75 Temp 36.9 ?C (98.4 ?F) Ht 178 cm (5' 10.08) Wt 103 kg (227 lb 1.2 oz) SpO2 98% BMI 32.51 kg/m? BMI 32.51 kg/(m2) Vital signs completed by: IMPACT Weight acquired: per HANDP. Height acquired: per HANDP Airway Exam: MOUTH OPENING/TMJ: Full jaw ROM MICROGNATHIA/OVERBITE: No MALLAMPATI SCORE is CLASS II UPPER LIP BITE TEST: Class II - Lower incisors can bite the upper lip below the johnson line DENTITION: Edentulous/dentures uppers THYROMENTAL DIST: WNL SHORT NECK: Yes - short/thick secondary to obesity. NECK CIRCUMFERENCE >40 cm: Neck Circumference measured at 44 cm NECK FLEX: Full ROM NECK EXTENSION: Full ROM AIRWAY HISTORY: No history of difficult intubation ARKS AIRWAY DETAIL: Date of ARKS: 10/17/15 Airway Adjunct Oral Size: N/A Mask:Yes. Mask Size: 4 Easy Mask:Yes Intubation: Asleep Airway: ETT Oral Size :7 mm #Trials: 1. Stylette: No. Cricoid pressure:No Intubating Devices: Quiñonez Size: 2. Teaching Purpose: No Grade: I Difficulty Comments: N/A DATA: EKG READING: Unconfirmed - Procedure Date : Apr 29 2018 12:27:19 Edit Date : Apr 29 2018 12:28:03 ? Diagnosis:NORMAL SINUS RHYTHM NORMAL ECG ? OTHER TESTS: ECHO 08/2017: - Exam indication: SVT - The left ventricle is normal in size. There is no left ventricular hypertrophy. Left ventricular systolic function is normal. EF = 66 ? 5% (2D biplane) Normal left ventricular diastolic function. - The right ventricle is normal in size. Right ventricular systolic function is normal. - There are no significant valvular abnormalities. - Estimated right ventricular systolic pressure is 25 mmHg consistent with normal pulmonary artery pressures. Estimated right atrial pressure is 5 mmHg. - Exam was compared with the prior echocardiographic exam performed on 02/10/2013 There is no significant change. ? ? DOBUTAMINE STRESS ECHO 2012 CONCLUSIONS: - Exam indication: Preop evaluation for noncardiac surgery with low/intermediate clinical risk - The dobutamine stress echo was negative for ischemia at 86 % of MPHR. - The left ventricle is normal in size. Left ventricular systolic function is normal. EF = 65 ? 5% (2D biplane) - The right ventricle is normal in size. Right ventricular systolic function is normal. - Normal valvular function on 2D and Doppler parameters. Aortic valve morphology not visualized. - No prior echocardiographic exam available for comparison.? Lab Value Units Date High Low HB 12.5 g/dL 04/29/2018 15.5 11.5 HCT 38.7 % 04/29/2018 46.0 36.0 WBC 6.80 k/uL 04/29/2018 11.00 3.70 PLT 249 k/uL 04/29/2018 400 150 NA 142 mmol/L 04/29/2018 144 136 K 4.7 mmol/L 04/29/2018 5.1 3.7 GLUC 135 mg/dL 04/29/2018 99 74 BUN 15 mg/dL 04/29/2018 21 7 CREAT 0.90 mg/dL 04/29/2018 0.96 0.58 PTSEC 9.9 sec 04/29/2018 13.0 9.7 INR 0.9 no uni* 04/29/2018 1.3 0.9 APTT 24.5 sec 04/29/2018 32.4 23.0 ALT 11 U/L 04/29/2018 38 7 AST 16 U/L 04/29/2018 35 13 TBILI 0.9 mg/dL 04/29/2018 1.3 0.2 TSH No results within date range. Lab Value Units Date High Low HCGQT No results within date range. UHCG No results within date range. HCG, BODY* No results within date range. Lab Value Units Date High Low ABORHD O POSI* no uni* 04/29/2018 ABSCREEN POS no uni* 04/29/2018 Ref Range AND Units 6d ago (04/29/18) 2yr ago (10/13/15) 2yr ago (10/07/15) 2yr ago (09/01/15) 3yr ago (11/12/14) 3yr ago (11/09/14) 3yr ago (10/28/14) ABO/RH(D) O POSITIVE O POSITIVE O POSITIVE O POSITIVE O POSITIVE O POSITIVE O POSITIVE Antibody Screen POS POS POS POS POS POS POS Order Type Blood Bank Blood Bank Blood Bank Blood Bank Blood Bank Blood Bank Blood Bank Blood Bank BB Free Text Comment See Physician's... See Physician's Report under Antibody Interpretation ON 2015. Historical Ab Scr Status POSITIVE POSITIVE POSITIVE POSITIVE Resulting Agency [facility] Specimen Collected: 04/29/18 12:10 PM Last Resulted: 05/01/18 12:57 PM : HBA1C: Hemoglobin A1C (%) Date Value 06/26/2017 7.2 03/27/2017 7.9 Hemoglobin A1C (POCT) (%) Date Value 01/21/2018 7.1 10/15/2017 6.7 ) Patient accompanied by self Case Discussed with Dr Esteves OPTIMIZATION STATUS: Patient optimization pending Labs IMPACT EKG IMPACT SIGNATURE: Magy Hatfield RN PATIENT NAME: Adri Goyal DATE: April 29, 2018 TIME: 2:22 PM PAGER/CONTACT #: 05/05/2018 Addendum (Liz Babb, FERNIE) TANDS results to note. Notified Dr. Jones's midlevel of results. Referring Provider: DALIA JONES [[id number]] Allergies As of Date: 04/29/2018 Noted Allergy Reaction BACTRIM (SULFAMETHOXAZOLE) 08/13/2011 14 - Other: See Comments Comments: Cardiac issues, CIPRO IV only CIPRO I.V. (CIPROFLOXACIN) 06/28/2006 4 - Hives 12 - Shortness of Breath DIMETAPP (PSEUDOEPHEDRINE-DM) 12/04/2005 11 - Vomiting Comments: violently ill when overdosed on it as child ERYTHROMYCIN 11/29/2005 Comments: hives ok with zithromax KEFLEX (CEPHALEXIN) 11/29/2005 Comments: OK to give zosyn per MD 1-12-07 LATEX 11/29/2005 2 - Rash Comments: rash, breaks out everywhere, n/v , feels weak Can still eat food that is considered for latex allergies No allergic to latex foods per patient isaak 05/07/11 TETRACYCLINE 02/05/2006 Comments: hives Date Reviewed: 04/29/2018 Reviewed by: Magy Hatfield RN - Fully Assessed Primary Visit Diagnosis:Pre-op evaluation [Z01.818] Prescriptions as of 04/29/2018 Sig: LOSARTAN 50 MG TABLET Take 1 tablet by mouth every * METOPROLOL SUCCINATE ER 25 MG* Take 1 tablet by mouth every * ASPIRIN 81 MG TABLET,DELAYED * Take 1 tablet by mouth every * AMLODIPINE 5 MG TABLET Take 2 tablets by mouth every* INSULIN GLARGINE (U-100) 100 * Inject 10 Units subcutaneousl* OMEPRAZOLE 20 MG CAPSULE,JAG* Take 1 capsule by mouth every* MELOXICAM 15 MG TABLET Take 1 tablet by mouth every * QUETIAPINE 100 MG TABLET Take 1 tablet by mouth every * ZOLPIDEM 5 MG TABLET Take 1 tablet by mouth at bed* X INSULIN GLARGINE (U-100) 100 * 20 units sq twice daily Patient taking differently: Inject 10 Units subcutaneousl* X LOSARTAN 50 MG TABLET Take 1 tablet by mouth once d* ESTRADIOL 0.01% (0.1 MG/GRAM)* 1/2 inch of cream to lower va* CLONAZEPAM 1 MG TABLET Take 1 tablet by mouth daily * X METOPROLOL SUCCINATE ER 25 MG* TAKE ONE TABLET BY MOUTH DAILY X ASPIRIN 81 MG TABLET,DELAYED * TAKE ONE TABLET BY MOUTH DAILY X AMLODIPINE 5 MG TABLET Take 2 tablets by mouth once * X OMEPRAZOLE 20 MG CAPSULE,JAG* Take 1 capsule by mouth twice* X MELOXICAM 15 MG TABLET Take 1 tablet by mouth once d* X QUETIAPINE 100 MG TABLET Take 1 tablet by mouth twice * INSULIN ASPART U-100 100 UNI* 15 units before meals + 2 u p* DULOXETINE 60 MG CAPSULE,JAG* Take 1 capsule by mouth daily* POTASSIUM CHLORIDE ER 10 MEQ * Take 1 tablet by mouth twice * GABAPENTIN 100 MG CAPSULE 300 mg daily at bedtime DIAPER,BRIEF,ADULT,DISPOSABLE 1 Each as needed. Dx: N36.0,* BLOOD SUGAR DIAGNOSTIC STRIPS TEST BLOOD SUGAR 6 TO 8 TIMES* LANCETS Use as instructed to test blo* BLOOD-GLUCOSE METER KIT As directed PEN NEEDLE, DIABETIC 33 GAUGE* 1 Each as directed. Use with * LANCETS REGULAR MISC 1 Each as directed. Use 6 x d* CHOLECALCIFEROL (VITAMIN D3) * Take 1 capsule by mouth once * MULTIVITAMIN WITH CALCIUM AND* Take 1 tablet by mouth twice * BLOOD SUGAR DIAGNOSTIC, DISC * 1 Each as directed. 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 Essential Hypertension, Benign [I10] INVALID FOR* More... Hyperpotassemia [E87.5] INVALID FOR*04/15/2017 Abdominal pain, left lower quadrant [R10.32] INVALID FOR*04/15/2017 Abdominal pain, right lower quadrant [R10.31] INVALID FOR*04/15/2017 Abdominal Pain, Generalized [R10.84] INVALID FOR* HTN (hypertension) [I10] 04/15/2017 More... GERD (Gastroesophageal Reflux Disease) [K21.9] More... Irritable Bowel Syndrome [K58.9] RSD lower limb [G90.529] 04/15/2017 Open wound of abdominal wall, anterior, complic* 04/15/2017 Depressive disorder, not elsewhere classified [* More... Morbid obesity (HCC) [E66.01] INVALID FOR*12/25/2016 Dietary surveillance and counseling [Z71.3] INVALID FOR*04/15/2017 Gastric bypass status for obesity [Z98.84] INVALID FOR*04/15/2017 More... Nausea AND vomiting [R11.2] INVALID FOR*04/15/2017 Other and unspecified postsurgical nonabsorptio*INVALID FOR*04/15/2017 Osteoporosis [M81.0] INVALID FOR*08/20/2013 On total parenteral nutrition (TPN) [Z78.9] INVALID FOR*04/15/2017 Malabsorption [K90.9] INVALID FOR* Fracture [T14.8XXA] INVALID FOR*04/15/2017 Hernia of abdominal wall [K43.9] INVALID FOR* H/O hyperglycemia [Z86.39] INVALID FOR*04/15/2017 Diarrhea [R19.7] INVALID FOR* Insomnia [G47.00] INVALID FOR* More... Diabetic neuropathy, painful (HCC) [E11.40] INVALID FOR* More... DM (diabetes mellitus) (HCC) [E11.9] INVALID FOR* More... Unspecified intestinal malabsorption [K90.9] INVALID FOR* More... Osteoporosis [M81.0] INVALID FOR* More... Vitamin D deficiency [E55.9] INVALID FOR* More... Post-operative state [Z98.890] INVALID FOR*04/15/2017 Obesity (BMI 30.0-34.9) [E66.9] INVALID FOR* More... Chronic pain in right shoulder [M25.511, G89.29]INVALID FOR* More... Impingement syndrome of right shoulder [M75.41] INVALID FOR* More... Migraines [G43.909] INVALID FOR* DDD (degenerative disc disease), lumbar [M51.36]INVALID FOR* Acute pain of right shoulder [M25.511] INVALID FOR* Ventral hernia without obstruction or gangrene *INVALID FOR* More... Encounter Status:Closed by MAGY HATFIELD RN on 04/29/18 Chart Close Cosign Accepted by: MARISSA ESTEVES MD[[id number]] Chart Close Cosign Accepted on: SatApr 29, 2018 6:05 PM CNOV Observed: 04/29/2018 Status: COMPLETED Source: [place] 10:15 AM [facility] REPOSITORY Office Visit (IMPAMN) ADRI GOYAL ([id number]) 1960 F TPN Date Time Provider Department 04/29/18 10:15 AM SATYA KING During your visit today, we recorded the following information about you: Temperature Pulse Blood pressure Weight 98.4 degrees 75/minute 113/65 103.4 kg Height 1.778 m Satya King MD 05/02/2018 7:18 AM Signed HISTORY AND PHYSICAL EXAMINATION (IMPACT) SERVICE DATE: 04/29/2018 SERVICE TIME: 10:38 AM PRIMARY CARE PHYSICIAN: LEON JIMENEZ MD CHIEF COMPLAINT/HISTORY OF PRESENT ILLNESS: Ms. Goyal is a 57 year old female referred to me for preoperative evaluation. My final recommendations will be communicated back to the requesting physician/surgeon by the way of the shared medical record. Referring Surgeon: Dr. Jones Date of Surgery: 05/21 Planned Surgery/Procedure: repair of large ventral hernia with mesh Indication for Planned Surgery / Procedure: recurrent symptomatic ventral hernia s/p multiple abdominal surgeries for bowel resection with reconstructed abdominal wall after necrotizing fasciitis. + has dumping syndrome which is chronic + 4 to 6 times per day Refer to Assessment section for details of any comorbidities. Patient is Able to Perform the Following Physical Activity: Do light work around the house, such as dusting or washing dishes (2.70 METs) Walk a block or two on level ground (2.75 METs) Climb a flight of stairs or walk up a hill (5.50 METs) Patient's functional class is I based on self-reported physical activity. Significant Anesthesia Considerations: Postop nausea/vomiting. PAST MEDICAL/SURGICAL/FAMILY/SOCIAL HISTORY PAST MEDICAL HISTORY Diagnosis Date - Abdominal pain, generalized CHRONIC PAIN MANAGEMENT - Bacterial overgrowth syndrome - Bowel disease - Depressive disorder, not elsewhere classified on cymbalta - Diabetes mellitus (HCC) 1980s on insulin since 1982 - Fracture - GERD (gastroesophageal reflux disease) resolved since 2004 - HTN (hypertension) resolved since 2004 - Incisional hernia without mention of obstruction or gangrene - Irritable bowel syndrome - Necrotizing fasciitis (HCC) - Obesity, unspecified 05-23-10 STATED BMI 35.91 Ht: 70 Wt: 250 lbs - Open wound of abdominal wall, anterior, complicated 1 - PMH - PAST MEDICAL HISTORY OF irritable bowel syndrome, necrotizing fasciitis, hypertension, diabetes, GERD, gastritis, - PMH - PAST MEDICAL HISTORY OF 09/2009 left foot break - RSD lower limb seen by pain management PAST SURGICAL HISTORY Procedure Laterality Date - ARTHROS SHLDR DX W/WO SYNV BX Right 05/03/2017 Right shoulder arthroscopy, glenoid chondroplasty - FEEDING TUBE-SPECIFY J-tube - GASTRIC BYPASS, LION-EN-Y 04/27/11 - HYSTERECTOMY HX 2003 - PAST SURGICAL HISTORY OF colostomy, partial colectomy,OSMAR/BSO, right hand tendon rplaced, fatty tumor excision back and thigh,ulnar nreve surgery bilaterally, tonsillectomy - PAST SURGICAL HISTORY OF 2005 repair of fistulas - PAST SURGICAL HISTORY OF 2005 translupe colostomy - PAST SURGICAL HISTORY OF 2004 debredement due to necratizing fascitis - PAST SURGICAL HISTORY OF 2004 hysterectomy - PAST SURGICAL HISTORY OF STATES > 113 ABDOMINAL SURGERIES - PAST SURGICAL HISTORY OF resversal of colostomy - PAST SURGICAL HISTORY OF 10/2015 hernia repair/abdominal muscle repair - REPAIR COMPL ROTATOR CUFF AVULSN,CHR Right 05/03/2017 Glenoid chondroplasty, labtral debridement, SAD - TONSILLECTOMY HX 1975 FAMILY HISTORY Problem Relation Age of Onset - other (Bipolar) Mother - Diabetes Father Type 2 - Heart Father hypertension - Colon Cancer Paternal Grandfather dx'd age 61? 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 Per pt 04/29/18 ) Disp: 5 Pen Rfl: 5 losartan (COZAAR) 50 mg tablet Take 1 tablet by mouth once daily. Disp: 30 tablet Rfl: 11 metoprolol succinate ER (TOPROL XL) 25 mg 24 hr tablet TAKE ONE TABLET BY MOUTH DAILY Disp: 30 tablet Rfl: 0 aspirin, enteric coated (ASPIRIN, ENTERIC COATED) 81 mg EC tablet TAKE ONE TABLET BY MOUTH DAILY Disp: 30 tablet Rfl: 0 amLODIPine (NORVASC) 5 mg tablet Take 2 tablets by mouth once daily. Disp: 180 tablet Rfl: 5 omeprazole (PRILOSEC) 20 mg capsule Take 1 capsule by mouth twice daily. Disp: 180 capsule Rfl: 3 meloxicam (MOBIC) 15 mg tablet Take 1 tablet by mouth once daily. Disp: 30 tablet Rfl: 5 clonazePAM (KLONOPIN) 1 mg tablet Take 1 tablet by mouth daily at bedtime for 30 days. Disp: 30 tablet Rfl: 3 QUEtiapine (SEROQUEL) 100 mg tablet Take 1 tablet by mouth twice daily. Disp: 180 tablet Rfl: 3 insulin aspart U-100 (NOVOLOG) 100 unit/mL inpn 15 units before meals + 2 u per 50 >200 TDD 75 units Disp: 10 Pen Rfl: 11 DULoxetine (CYMBALTA) 60 mg capsule Take 1 capsule by mouth daily at bedtime. Disp: 90 capsule Rfl: 3 gabapentin (NEURONTIN) 100 mg capsule 300 mg daily at bedtime Disp: 90 capsule Rfl: 11 Diaper,Brief, Adult,Disposable (PREVAIL ADJUST UNDERWEAR SHABANA LARA) misc 1 Each as needed. Dx: N36.0, K58.9 Disp: 250 Each Rfl: 11 blood sugar diagnostic (ONETOUCH ULTRA TEST) test strip TEST BLOOD SUGAR 6 TO 8 TIMES DAILY Dx: E11.9 Insulin:yes Disp: 800 Strip Rfl: 3 Lancets lancets Use as instructed to test blood sugars 8 times daily E11.9 Disp: 800 Each Rfl: 3 Blood-Glucose Meter (ONETOUCH ULTRA2) monitoring kit As directed Disp: 1 Each Rfl: 0 pen needle, diabetic 33 gauge x 5/32 ndle 1 Each as directed. Use with injections 4x daily E11.9 Disp: 400 Each Rfl: 3 LANCETS REGULAR MISC 1 Each as directed. Use 6 x daily Disp: Rfl: cholecalciferol, Vitamin D3, (VITAMIN D3) 50,000 unit cap capsule Take 1 capsule by mouth once each week. Take with your largest meal of the day Disp: 12 capsule Rfl: 4 Multivits,CalciumAND Minerals-FA 267 mcg tab Take 1 tablet by mouth twice daily. Centrum Adult Chewables MVI with minerals is preferred; must be chewable Disp: 60 tablet Rfl: 99 Blood Sugar Diagnostic, Disc strp 1 Each as directed. CHECK BLOOD GLUCOSE EIGHT TIMES PER DAY/ Disp: Rfl: estradiol (ESTRACE) 0.01 % (0.1 mg/gram) vaginal cream 1/2 inch of cream to lower vagina qhs twice weekly Disp: 1 Tube Rfl: 1 potassium chloride (K-TAB) 10 mEq tablet Take 1 tablet by mouth twice daily. Disp: 60 tablet Rfl: 6 Current Facility-Administered Medications: denosumab 60 mg injection (PROLIA) 60 mg SUBCUTANEOUS Q 6 MONTH Pool [place] 60 mg at 01/21/18 1356 ALLERGIES Allergen Reactions - Bactrim [Sulfametho* Other: See Comments Cardiac issues, CIPRO IV only - Cipro I.V. [Ciprofl* Hives, Shortness of Breath - Dimetapp [Pseudoeph* Vomiting violently ill when overdosed on it as child - Erythromycin hives ok with zithromax - Keflex [Cephalexin] OK to give zosyn per MD 06-28-06 - Latex Rash rash, breaks out everywhere, n/v , feels weak Can still eat food that is considered for latex allergies No allergic to latex foods per patient [facility] 05/07/11 - Tetracycline hives REVIEW OF SYSTEMS General: No weight loss, malaise or fevers. 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 No neurological symptoms or problems. Respiratory: No history of current cough or dyspnea, or pneumonia in the past 6 weeks. No history of respiratory/pulmonary symptoms or problems. Cardiovascular: Hypertension requiring meds, No CAD/CHF/VTE GI: per HPI : No history of UTI in past 6 weeks. No history of renal failure. Not currently on or requiring dialysis. 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 No history of hematological symptoms or problems. Oncology: distant uterine + cx cancer, s/p OSMAR + BSO in 2003 Psych: Depression, helped by med s Skin: Negative for lesions, rash, and itching. PHYSICAL EXAM VITALS: BP 113/65 Pulse 75 Temp (Src) 98.4 (Oral) Ht 5' 10 (1.78m) Wt 228 lb (103.4kg) SpO2 98% BMI 32.71 kg/(m2). General: Alert and oriented Skin: Normal color, no rash, no lesions. HEENT: EOM, pupils equal, round and reactive. Cardiovascular: Normal S1 AND S2, no rubs, murmurs or gallops. No JVD. Pulse regular. Lungs: Normal breath sounds, no wheezes or crackles. Abdomen: Soft, + tender LLQ, no rigidity. Extremities: No deformity,+1 LE edema , no joint swelling or clubbing. Neurological: Normal cognition and motor skills. Pulses: Carotid and radial pulses normal +2. ASSESSMENT Ms. Goyal is a 57 year old female referred to me for preoperative evaluation. Patient has the following medical comorbidities which might affect the perioperative course: - Type II Diabetes with peripheral neuropathy. Patient is on insulin. - Hypertension, well controlled. - Patient is overweight related to excessive caloric intake. Body mass index is 32.71 kg/m?. - GERD controlled - SIBO in the past + currently has dumping syndrome which is chronic Patient's RCRI (Revised Cardiac Risk Index: CAD/CHF/Stroke or TIA/SCr>2/DM on Insulin/High Risk Surgery) score is 1 and is at low risk for major adverse cardiac events in the perioperative period. Diagnostic tests reviewed for today's visit: PENDING + ECHO 08/2017: - Exam indication: SVT - The left ventricle is normal in size. There is no left ventricular hypertrophy. Left ventricular systolic function is normal. EF = 66 ? 5% (2D biplane) Normal left ventricular diastolic function. - The right ventricle is normal in size. Right ventricular systolic function is normal. - There are no significant valvular abnormalities. - Estimated right ventricular systolic pressure is 25 mmHg consistent with normal pulmonary artery pressures. Estimated right atrial pressure is 5 mmHg. - Exam was compared with the prior echocardiographic exam performed on 02/10/2013 There is no significant change. ? TAMINE STRESS ECHO 2013: Stress protocol consisted of dobutamine up to 40 mcg/kg/min with hand director of surgery and atropine. Test was terminated due to completed protocol. Rest HR 67 bpm. Peak HR 146 bpm. (86 % MPHR) Rest BP 133 mmHg/69 mmHg. Peak BP 167 mmHg/71 mmHg. Patient experienced no symptoms during stress. Rest ECG normal. Stress ECG normal ST segment response and premature ventricular contraction. Stress complications: none. The left ventricular cavity size is decreased with stress. + CONCLUSIONS: - Exam indication: Preop evaluation for noncardiac surgery with low/intermediate clinical risk - The dobutamine stress echo was negative for ischemia at 86 % of MPHR. - The left ventricle is normal in size. Left ventricular systolic function is normal. EF = 65 ? 5% (2D biplane) - The right ventricle is normal in size. Right ventricular systolic function is normal. - Normal valvular function on 2D and Doppler parameters. Aortic valve morphology not visualized. - No prior echocardiographic exam available for comparison.? /RECOMMENDATIONS CARDIAC: Patient is at optimal cardiac condition for scheduled surgery / procedure. PULMONARY: Patient is at optimal Pulmonary status for scheduled surgery / procedure. Suggest the following in the post-operative period: Aggressive bronchopulmonary hygiene and Early ambulation ENDOCRINE: DIABETES: - Initiate [facility] Guidelines for perioperative diabetes management. Check finger stick glucose on the morning of surgery. - Patient has been instructed on Preoperative DM medication management. - see below Needs post op glucose monitoring + sliding scale Insulin for coverage. Add Lantus Insulin 10 units qAM this admission Resume pre admission Insulin regimen at time of DC VASCULAR/ANTICOAGULATION: VTE prophylaxis as deemed appropriate by the surgical service. Patient is optimally prepared for surgery pending labs and EKG Patient Instructions: As per patient instructions section. I have discussed the above recommendations with the patient in detail, in hai and lay terms, and provided a written summary of instructions as needed. We have discussed that no surgery is without risk, but that the goal of preoperative assessment is to optimize that risk, and that was clearly understood by the patient. I have given ample opportunity for the patient to ask questions, and answered all questions to their stated satisfaction. SIGNATURE: Satya King MD PATIENT NAME: Adri Goyal DATE: April 29, 2018 TIME: 10:38 AM Addendum 04/29 PM EKG: NSR, normal axis, no acute changes + Labs: Component Latest Ref Rng AND Units 04/29/2018 WBC 3.70 - 11.00 k/uL 6.80 RBC 3.90 - 5.20 m/uL 4.37 Hemoglobin 11.5 - 15.5 g/dL 12.5 Hematocrit 36.0 - 46.0 % 38.7 MCV 80.0 - 100.0 fL 88.6 MCH 26.0 - 34.0 pG 28.6 MCHC 30.5 - 36.0 g/dL 32.3 RDW-CV 11.5 - 15.0 % 14.3 Platelet Count 150 - 400 k/uL 249 MPV 9.0 - 12.7 fL 9.9 Neut% % 72.0 Abs Neut (ANC) 1.45 - 7.50 k/uL 4.88 Lymph% % 20.7 Abs Lymph 1.00 - 4.00 k/uL 1.41 [place]% % 4.9 Abs [place] <0.87 k/uL 0.33 Eosin% % 2.1 Abs Eosin <0.46 k/uL 0.14 Baso% % 0.3 Abs Baso <0.11 k/uL <0.03 Nucleated Reds 0 /100 WBC 0.0 Absolute nRBC <0.01 k/uL <0.01 Diff Type Auto Diff Protein, Total 6.3 - 8.0 g/dL 7.1 Albumin 3.9 - 4.9 g/dL 4.6 Calcium 8.5 - 10.2 mg/dL 9.0 Bilirubin, Total 0.2 - 1.3 mg/dL 0.9 Alkaline Phosphatase 34 - 123 U/L 82 AST 13 - 35 U/L 16 Glucose 74 - 99 mg/dL 135 (H) BUN 7 - 21 mg/dL 15 Creatinine 0.58 - 0.96 mg/dL 0.90 Sodium 136 - 144 mmol/L 142 Potassium 3.7 - 5.1 mmol/L 4.7 Chloride 97 - 105 mmol/L 104 CO2 22 - 30 mmol/L 24 Anion Gap 9 - 18 mmol/L 14 ALT 7 - 38 U/L 11 eGFR- >60 eGFR-All Other Races . >60 Hemoglobin A1C 4.3 - 5.6 % 5.9 (H) Estimated Average Glucose mg/dL 123 PT Sec 9.7 - 13.0 sec 9.9 PT INR 0.9 - 1.3 0.9 APTT 23.0 - 32.4 sec 24.5 + UA + WBC + nitrites, as of 05/02 Urine CANDS still NEG OK to proceed with surgery. MD Maru Ho LPN 05/02/2018 7:18 AM Signed Adri Goyal is a 57 year old female here today for visit in [place] Referring Surgeon: Dr. Jones Date of Surgery: 05/21/2018 Planned Surgery/Procedure: HERNIORRHAPHY INCISIONAL Allergies have been reviewed and verified. They include the following: Bactrim [Sulfamethoxazole]; Cipro I.V. [Ciprofloxacin]; Dimetapp [Pseudoephedrine-Dm]; Erythromycin; Keflex [Cephalexin]; Latex; Tetracycline Social History Substance Use Topics - Smoking status: Never Smoker - Smokeless tobacco: Never Used - Alcohol use No Medications reviewed and updated: Yes [facility] Hospital[facility] King MD 04/29/2018 11:08 AM Addendum [facility] Patient Instructions for Surgery FOOD INSTRUCTIONS: NO solid food or non-clear liquids for 8 hours prior to the arrival time for your surgery. Unless you are instructed otherwise, you are allowed to drink up to 12 ounces of clear liquids (e.g. water, black tea/coffee, fruit juice without pulp, Yvonne Jesusita, etc.) up until 2 hours prior to the arrival time for surgery. MEDICATION INSTRUCTIONS: Prior to Surgery: Do not take the following medications for 7 days prior to surgery: Last dose May 13 - any NSAID's (e.g. Motrin, Aleve, Arthrotec, Naproxen,etc) - any herbal preparations - Aspirin or aspirin containing products + Do not take any Vitamin E / multivitamins for 10 days before surgery: Last dose May 10 + Stop Mobic 5 days prior to surgery, Last dose May 16 You are allowed to take Tylenol if needed until the day of surgery. On the night before surgery, decrease Basaglar to Insulin to 6 units (instead of 10 units) MEDICATION INSTRUCTIONS: Day/Morning of Surgery: The following medications should be taken with sips of water: see below NONE Tylenol if needed If you have any questions or concerns regarding today's visit please do not hesitate to contact the [facility] at [phone] or [phone], ext [phone]. Signature: Satya King MD Date: April 29, 2018 Satya King MD 05/02/2018 2:18 PM Signed Addended by: SATYA KING MD on: 05/02/2018 02:18 PM Modules accepted: Orders Referring Provider: DALIA JONES [[id number]] Allergies As of Date: 04/29/2018 Noted Allergy Reaction BACTRIM (SULFAMETHOXAZOLE) 08/13/2011 14 - Other: See Comments Comments: Cardiac issues, CIPRO IV only CIPRO I.V. (CIPROFLOXACIN) 06/28/2006 4 - Hives 12 - Shortness of Breath DIMETAPP (PSEUDOEPHEDRINE-DM) 12/04/2005 11 - Vomiting Comments: violently ill when overdosed on it as child ERYTHROMYCIN 11/29/2005 Comments: hives ok with zithromax KEFLEX (CEPHALEXIN) 11/29/2005 Comments: OK to give zosyn per MD 1-12-07 LATEX 11/29/2005 2 - Rash Comments: rash, breaks out everywhere, n/v , feels weak Can still eat food that is considered for latex allergies No allergic to latex foods per patient isaak 05/07/11 TETRACYCLINE 02/05/2006 Comments: hives Date Reviewed: 04/29/2018 Reviewed by: Magy Hatfield RN - Fully Assessed Primary Visit Diagnosis:Pre-op evaluation [Z01.818] Other Visit Diagnoses:Hernia of abdominal wall [K43.9] Obesity (BMI 30.0-34.9) [E66.9] Essential hypertension, benign [I10] Controlled type 2 diabetes mellitus with diabetic neuropathy, with long-term current use of insulin (HCC) [E11.40, Z79.4] Gastroesophageal reflux disease with esophagitis [K21.0] Irritable bowel syndrome with diarrhea [K58.0] Anxiety and depression [F41.9, F32.9] Pre-operative examination [Z01.818] Uncontrolled type 2 diabetes with neuropathy (HCC) [E11.40, E11.65] Insomnia, unspecified type [G47.00] Order(s):losartan (COZAAR) 50 mg tabletTake 1 tablet by mouth every evening.Disp: Rfl: metoprolol succinate ER (TOPROL XL) 25 mg 24 hr tabletTake 1 tablet by mouth every evening.Disp: Rfl: aspirin, enteric coated (ASPIRIN, ENTERIC COATED) 81 mg EC tabletTake 1 tablet by mouth every evening.Disp: Rfl: amLODIPine (NORVASC) 5 mg tabletTake 2 tablets by mouth every evening.Disp: Rfl: insulin glargine (BASAGLAR KWIKPEN U-100 INSULIN) 100 unit/mL (3 mL) inpnInject 10 Units subcutaneously every 12 hours. 20 units sq twice dailyDisp: 5 PenRfl: 5 omeprazole (PRILOSEC) 20 mg capsuleTake 1 capsule by mouth every evening.Disp: Rfl: meloxicam (MOBIC) 15 mg tabletTake 1 tablet by mouth every evening.Disp: Rfl: QUEtiapine (SEROQUEL) 100 mg tabletTake 1 tablet by mouth every evening.Disp: Rfl: zolpidem (AMBIEN) 5 mg tabletTake 1 tablet by mouth at bedtime as needed (for insomnia.) for up to 180 days.Disp: Rfl: ciprofloxacin HCl (CIPRO) 500 mg tabletTake 1 tablet by mouth twice daily for 5 days. She has tolerated the oral Cipro numerous times in the past without complicationsDisp: 10 tabletRfl: 0 Prescriptions as of 04/29/2018 Sig: LOSARTAN 50 MG TABLET Take 1 tablet by mouth every * METOPROLOL SUCCINATE ER 25 MG* Take 1 tablet by mouth every * ASPIRIN 81 MG TABLET,DELAYED * Take 1 tablet by mouth every * AMLODIPINE 5 MG TABLET Take 2 tablets by mouth every* INSULIN GLARGINE (U-100) 100 * Inject 10 Units subcutaneousl* OMEPRAZOLE 20 MG CAPSULE,JAG* Take 1 capsule by mouth every* MELOXICAM 15 MG TABLET Take 1 tablet by mouth every * QUETIAPINE 100 MG TABLET Take 1 tablet by mouth every * CLONAZEPAM 1 MG TABLET Take 1 tablet by mouth daily * INSULIN ASPART U-100 100 UNI* 15 units before meals + 2 u p* DULOXETINE 60 MG CAPSULE,JAG* Take 1 capsule by mouth daily* GABAPENTIN 100 MG CAPSULE 300 mg daily at bedtime DIAPER,BRIEF,ADULT,DISPOSABLE 1 Each as needed. Dx: N36.0,* BLOOD SUGAR DIAGNOSTIC STRIPS TEST BLOOD SUGAR 6 TO 8 TIMES* LANCETS Use as instructed to test blo* BLOOD-GLUCOSE METER KIT As directed PEN NEEDLE, DIABETIC 33 GAUGE* 1 Each as directed. Use with * LANCETS REGULAR MISC 1 Each as directed. Use 6 x d* CHOLECALCIFEROL (VITAMIN D3) * Take 1 capsule by mouth once * MULTIVITAMIN WITH CALCIUM AND* Take 1 tablet by mouth twice * BLOOD SUGAR DIAGNOSTIC, DISC * 1 Each as directed. 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 Essential Hypertension, Benign [I10] INVALID FOR* More... Hyperpotassemia [E87.5] INVALID FOR*04/15/2017 Abdominal pain, left lower quadrant [R10.32] INVALID FOR*04/15/2017 Abdominal pain, right lower quadrant [R10.31] INVALID FOR*04/15/2017 Abdominal Pain, Generalized [R10.84] INVALID FOR* HTN (hypertension) [I10] 04/15/2017 More... GERD (Gastroesophageal Reflux Disease) [K21.9] More... Irritable Bowel Syndrome [K58.9] RSD lower limb [G90.529] 04/15/2017 Open wound of abdominal wall, anterior, complic* 04/15/2017 Depressive disorder, not elsewhere classified [* More... Morbid obesity (HCC) [E66.01] INVALID FOR*12/25/2016 Dietary surveillance and counseling [Z71.3] INVALID FOR*04/15/2017 Gastric bypass status for obesity [Z98.84] INVALID FOR*04/15/2017 More... Nausea AND vomiting [R11.2] INVALID FOR*04/15/2017 Other and unspecified postsurgical nonabsorptio*INVALID FOR*04/15/2017 Osteoporosis [M81.0] INVALID FOR*08/20/2013 On total parenteral nutrition (TPN) [Z78.9] INVALID FOR*04/15/2017 Malabsorption [K90.9] INVALID FOR* Fracture [T14.8XXA] INVALID FOR*04/15/2017 Hernia of abdominal wall [K43.9] INVALID FOR* H/O hyperglycemia [Z86.39] INVALID FOR*04/15/2017 Diarrhea [R19.7] INVALID FOR* Insomnia [G47.00] INVALID FOR* More... Diabetic neuropathy, painful (HCC) [E11.40] INVALID FOR* More... DM (diabetes mellitus) (HCC) [E11.9] INVALID FOR* More... Unspecified intestinal malabsorption [K90.9] INVALID FOR* More... Osteoporosis [M81.0] INVALID FOR* More... Vitamin D deficiency [E55.9] INVALID FOR* More... Post-operative state [Z98.890] INVALID FOR*04/15/2017 Obesity (BMI 30.0-34.9) [E66.9] INVALID FOR* More... Chronic pain in right shoulder [M25.511, G89.29]INVALID FOR* More... Impingement syndrome of right shoulder [M75.41] INVALID FOR* More... Migraines [G43.909] INVALID FOR* DDD (degenerative disc disease), lumbar [M51.36]INVALID FOR* Acute pain of right shoulder [M25.511] INVALID FOR* Ventral hernia without obstruction or gangrene *INVALID FOR* More... Other instructions from your clinician: [facility] Patient Instructions for Surgery FOOD INSTRUCTIONS: NO solid food or non-clear liquids for 8 hours prior to the arrival time for your surgery. Unless you are instructed otherwise, you are allowed to drink up to 12 ounces of clear liquids (e.g. water, black tea/coffee, fruit juice without pulp, Yvonne Jesusita, etc.) up until 2 hours prior to the arrival time for surgery. MEDICATION INSTRUCTIONS: Prior to Surgery: Do not take the following medications for 7 days prior to surgery: Last dose May 13 - any NSAID's (e.g. Motrin, Aleve, Arthrotec, Naproxen,etc) - any herbal preparations - Aspirin or aspirin containing products + Do not take any Vitamin E / multivitamins for 10 days before surgery: Last dose May 10 + Stop Mobic 5 days prior to surgery, Last dose May 16 You are allowed to take Tylenol if needed until the day of surgery. On the night before surgery, decrease Basaglar to Insulin to 6 units (instead of 10 units) MEDICATION INSTRUCTIONS: Day/Morning of Surgery: The following medications should be taken with sips of water: see below NONE Tylenol if needed If you have any questions or concerns regarding today's visit please do not hesitate to contact the [facility] at [phone] or [phone], ext [phone]. Signature: Satya King MD Date: April 29, 2018 Prescriptions ordered this encounter Disp Refills Start End LOSARTAN 50 MG TABLET 04/29/2018 Class: Med Update Route: ORAL Sig: Take 1 tablet by mouth every evening. METOPROLOL SUCCINATE ER 25 MG TABLET* 04/29/2018 Class: Med Update Route: ORAL Sig: Take 1 tablet by mouth every evening. ASPIRIN 81 MG TABLET,DELAYED RELEASE 04/29/2018 Class: Med Update Route: ORAL Sig: Take 1 tablet by mouth every evening. AMLODIPINE 5 MG TABLET 04/29/2018 Class: Med Update Route: ORAL Sig: Take 2 tablets by mouth every evening. INSULIN GLARGINE (U-100) 100 UNIT/ML* 5 Pen 5 04/29/2018 Class: Med Update Route: SUBCUTANEOUS Sig: Inject 10 Units subcutaneously every 12 hours. 20 units sq twice daily OMEPRAZOLE 20 MG CAPSULE,DELAYED REL* 04/29/2018 Class: Med Update Route: ORAL Sig: Take 1 capsule by mouth every evening. MELOXICAM 15 MG TABLET 04/29/2018 Class: Med Update Route: ORAL Sig: Take 1 tablet by mouth every evening. QUETIAPINE 100 MG TABLET 04/29/2018 Class: Med Update Route: ORAL Sig: Take 1 tablet by mouth every evening. ZOLPIDEM 5 MG TABLET 04/29/2018 10/26/2018 Class: Med Update Route: ORAL Sig: Take 1 tablet by mouth at bedtime as needed (for insomnia.) for up to 180 days. CIPROFLOXACIN 500 MG TABLET 10 t* 0 05/02/2018 05/07/2018 Route: ORAL Sig: Take 1 tablet by mouth twice daily for 5 days. She has tolerated the oral Cipro numerous times in the past without complications Medications Discontinued During This Encounter losartan (COZAAR) 50 mg tablet 30 t* 11 04/10/2018 04/29/2018 Route: ORAL Sig: Take 1 tablet by mouth once daily. Disc: Reason for discontinue is not on file. metoprolol succinate ER (TOPROL XL) * 30 t* 0 04/07/2018 04/29/2018 Sig: TAKE ONE TABLET BY MOUTH DAILY Disc: Reason for discontinue is not on file. aspirin, enteric coated (ASPIRIN, EN* 30 t* 0 04/07/2018 04/29/2018 Sig: TAKE ONE TABLET BY MOUTH DAILY Disc: Reason for discontinue is not on file. amLODIPine (NORVASC) 5 mg tablet 180 * 5 04/07/2018 04/29/2018 Route: ORAL Sig: Take 2 tablets by mouth once daily. Disc: Reason for discontinue is not on file. insulin glargine (BASAGLAR KWIKPEN U* 5 Pen 5 04/16/2018 04/29/2018 Si units sq twice daily Patient taking differently: Inject 10 Units subcutaneously twice daily. Per pt 04/29/18 Disc: Reason for discontinue is not on file. omeprazole (PRILOSEC) 20 mg capsule 180 * 3 04/07/2018 04/29/2018 Route: ORAL Sig: Take 1 capsule by mouth twice daily. Disc: Reason for discontinue is not on file. meloxicam (MOBIC) 15 mg tablet 30 t* 5 04/07/2018 04/29/2018 Route: ORAL Sig: Take 1 tablet by mouth once daily. Disc: Reason for discontinue is not on file. QUEtiapine (SEROQUEL) 100 mg tablet 180 * 3 02/25/2018 04/29/2018 Route: ORAL Sig: Take 1 tablet by mouth twice daily. Disc: Reason for discontinue is not on file. Encounter Status:Closed by SATYA KING MD on 05/02/18 PROGRESS Observed: 04/29/2018 Status: COMPLETED Source: [place] 10:14 AM [facility] REPOSITORY HNO ID: [id number] Author: Maru Puente LPN Service: (none) Author Type: (none) Type: Progress Notes Filed: 05/02/2018 7:18 AM Note Text: Adri Goyal is a 57 year old female here today for visit in [place] Referring Surgeon: Dr. Jones Date of Surgery: 05/21/2018 Planned Surgery/Procedure: HERNIORRHAPHY INCISIONAL Allergies have been reviewed and verified. They include the following: Bactrim [Sulfamethoxazole]; Cipro I.V. [Ciprofloxacin]; Dimetapp [Pseudoephedrine-Dm]; Erythromycin; Keflex [Cephalexin]; Latex; Tetracycline Social History Substance Use Topics - Smoking status: Never Smoker - Smokeless tobacco: Never Used - Alcohol use No Medications reviewed and updated: Yes Maru Puente LPN CNNURSE Observed: 04/29/2018 Status: COMPLETED Source: [place] 9:00 AM [facility] REPOSITORY Nurse Visit (GENN) JAY JAYADRI D ([id number]) 1960 F TPN Date Time Provider Department 04/29/18 9:00 AM NURSE PATRICIA PINO During your visit today, we recorded the following information about you: Raghavendra Garcia RN, RN 04/29/2018 11:25 AM Signed AMBULATORY PATIENT EDUCATION NOTE TOPIC: Preop Teaching READINESS TO LEARN COGNITIVE ABILITY: Alert and oriented MOTIVATION TO LEARN: Eager FAMILY SUPPORT: High - Very involved in pt care INSTRUCTION PROVIDED TO: Patient and family member PATIENT LEARNS BEST BY: Multiple Methods FACTORS AFFECTING LEARNING: None PHYSICAL LIMITATIONS AFFECTING LEARNING: None LEARNING RESPONSE DIAGNOSIS: Ventral Hernia METHOD OF INSTRUCTION: Individual instruction Group class instruction Written instruction - handouts Verbal instruction PATIENT / FAMILY RESPONSE: Verbalizes understanding of: PAIN MANAGEMENT-Effective strategies to manage pain in addition to pain medication PHYSICAL RESTRICTIONS-Physical restrictions and recommendations after discharge from the hospital POST-OPERATIVE INSTRUCTIONS-Correct actions to take to reduce postoperative complications PRE-OPERATIVE INSTRUCTIONS-Correct action to take to follow pre-operative instructions FOLLOW-UP PLAN: Patient instructed to call with any further issues SUPPLEMENTAL MATERIAL: Your Surgical Guide REFERRAL (RECOMMENDATION): None Electronically Signed By: Raghavendra Garcia RN In Department: GENERAL SURGERY Referring Provider: DALIA JONES [[id number]] Allergies As of Date: 04/29/2018 Noted Allergy Reaction BACTRIM (SULFAMETHOXAZOLE) 08/13/2011 14 - Other: See Comments Comments: Cardiac issues, CIPRO IV only CIPRO I.V. (CIPROFLOXACIN) 06/28/2006 4 - Hives 12 - Shortness of Breath DIMETAPP (PSEUDOEPHEDRINE-DM) 12/04/2005 11 - Vomiting Comments: violently ill when overdosed on it as child ERYTHROMYCIN 11/29/2005 Comments: hives ok with zithromax KEFLEX (CEPHALEXIN) 11/29/2005 Comments: OK to give zosyn per MD 1-12-07 LATEX 11/29/2005 2 - Rash Comments: rash, breaks out everywhere, n/v , feels weak Can still eat food that is considered for latex allergies No allergic to latex foods per patient isaak 05/07/11 TETRACYCLINE 02/05/2006 Comments: hives Date Reviewed: 04/29/2018 Reviewed by: Maru Puente LPN - Fully Assessed Reason for Visit: Pre-Op Teaching [134] Primary Visit Diagnosis:Ventral hernia without obstruction or gangrene [K43.9] Prescriptions as of 04/29/2018 Sig: X INSULIN GLARGINE (U-100) 100 * 20 units sq twice daily Patient taking differently: Inject 10 Units subcutaneousl* X LOSARTAN 50 MG TABLET Take 1 tablet by mouth once d* ESTRADIOL 0.01% (0.1 MG/GRAM)* 1/2 inch of cream to lower va* CLONAZEPAM 1 MG TABLET Take 1 tablet by mouth daily * X METOPROLOL SUCCINATE ER 25 MG* TAKE ONE TABLET BY MOUTH DAILY X ASPIRIN 81 MG TABLET,DELAYED * TAKE ONE TABLET BY MOUTH DAILY X AMLODIPINE 5 MG TABLET Take 2 tablets by mouth once * X OMEPRAZOLE 20 MG CAPSULE,JAG* Take 1 capsule by mouth twice* X MELOXICAM 15 MG TABLET Take 1 tablet by mouth once d* X QUETIAPINE 100 MG TABLET Take 1 tablet by mouth twice * INSULIN ASPART U-100 100 UNI* 15 units before meals + 2 u p* DULOXETINE 60 MG CAPSULE,JAG* Take 1 capsule by mouth daily* POTASSIUM CHLORIDE ER 10 MEQ * Take 1 tablet by mouth twice * GABAPENTIN 100 MG CAPSULE 300 mg daily at bedtime DIAPER,BRIEF,ADULT,DISPOSABLE 1 Each as needed. Dx: N36.0,* BLOOD SUGAR DIAGNOSTIC STRIPS TEST BLOOD SUGAR 6 TO 8 TIMES* LANCETS Use as instructed to test blo* BLOOD-GLUCOSE METER KIT As directed PEN NEEDLE, DIABETIC 33 GAUGE* 1 Each as directed. Use with * LANCETS REGULAR MISC 1 Each as directed. Use 6 x d* CHOLECALCIFEROL (VITAMIN D3) * Take 1 capsule by mouth once * MULTIVITAMIN WITH CALCIUM AND* Take 1 tablet by mouth twice * BLOOD SUGAR DIAGNOSTIC, DISC * 1 Each as directed. 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 Essential Hypertension, Benign [I10] INVALID FOR* More... Hyperpotassemia [E87.5] INVALID FOR*04/15/2017 Abdominal pain, left lower quadrant [R10.32] INVALID FOR*04/15/2017 Abdominal pain, right lower quadrant [R10.31] INVALID FOR*04/15/2017 Abdominal Pain, Generalized [R10.84] INVALID FOR* HTN (hypertension) [I10] 04/15/2017 More... GERD (Gastroesophageal Reflux Disease) [K21.9] More... Irritable Bowel Syndrome [K58.9] RSD lower limb [G90.529] 04/15/2017 Open wound of abdominal wall, anterior, complic* 04/15/2017 Depressive disorder, not elsewhere classified [* More... Morbid obesity (HCC) [E66.01] INVALID FOR*12/25/2016 Dietary surveillance and counseling [Z71.3] INVALID FOR*04/15/2017 Gastric bypass status for obesity [Z98.84] INVALID FOR*04/15/2017 More... Nausea AND vomiting [R11.2] INVALID FOR*04/15/2017 Other and unspecified postsurgical nonabsorptio*INVALID FOR*04/15/2017 Osteoporosis [M81.0] INVALID FOR*08/20/2013 On total parenteral nutrition (TPN) [Z78.9] INVALID FOR*04/15/2017 Malabsorption [K90.9] INVALID FOR* Fracture [T14.8XXA] INVALID FOR*04/15/2017 Hernia of abdominal wall [K43.9] INVALID FOR* H/O hyperglycemia [Z86.39] INVALID FOR*04/15/2017 Diarrhea [R19.7] INVALID FOR* Insomnia [G47.00] INVALID FOR* More... Diabetic neuropathy, painful (HCC) [E11.40] INVALID FOR* More... DM (diabetes mellitus) (HCC) [E11.9] INVALID FOR* More... Unspecified intestinal malabsorption [K90.9] INVALID FOR* More... Osteoporosis [M81.0] INVALID FOR* More... Vitamin D deficiency [E55.9] INVALID FOR* More... Post-operative state [Z98.890] INVALID FOR*04/15/2017 Obesity (BMI 30.0-34.9) [E66.9] INVALID FOR* More... Chronic pain in right shoulder [M25.511, G89.29]INVALID FOR* More... Impingement syndrome of right shoulder [M75.41] INVALID FOR* More... Migraines [G43.909] INVALID FOR* DDD (degenerative disc disease), lumbar [M51.36]INVALID FOR* Acute pain of right shoulder [M25.511] INVALID FOR* Ventral hernia without obstruction or gangrene *INVALID FOR* More... Visit Notes: >> Raghavendra (Rn) FERNIE Garcia rosalee Apr 29, 2018 11:24 AM Status: Signed AMBULATORY PATIENT EDUCATION NOTE TOPIC: Preop Teaching READINESS TO LEARN COGNITIVE ABILITY: Alert and oriented MOTIVATION TO LEARN: Eager FAMILY SUPPORT: High - Very involved in pt care INSTRUCTION PROVIDED TO: Patient and family member PATIENT LEARNS BEST BY: Multiple Methods FACTORS AFFECTING LEARNING: None PHYSICAL LIMITATIONS AFFECTING LEARNING: None LEARNING RESPONSE DIAGNOSIS: Ventral Hernia METHOD OF INSTRUCTION: Individual instruction Group class instruction Written instruction - handouts Verbal instruction PATIENT / FAMILY RESPONSE: Verbalizes understanding of: PAIN MANAGEMENT-Effective strategies to manage pain in addition to pain medication PHYSICAL RESTRICTIONS-Physical restrictions and recommendations after discharge from the hospital POST-OPERATIVE INSTRUCTIONS-Correct actions to take to reduce postoperative complications PRE-OPERATIVE INSTRUCTIONS-Correct action to take to follow pre-operative instructions FOLLOW-UP PLAN: Patient instructed to call with any further issues SUPPLEMENTAL MATERIAL: Your Surgical Guide REFERRAL (RECOMMENDATION): None Electronically Signed By: Raghavendra Garcia RN In Department: GENERAL SURGERY Encounter Status:Closed by RAGHAVENDRA GARCIA on 04/29/18 PROGRESS Observed: 04/29/2018 Status: COMPLETED Source: [place] 6:53 AM [facility] REPOSITORY [facility] ID: [id number] Author: Satya King Service: (none) Author Type: Physician Type: Progress Notes Filed: 05/02/2018 7:18 AM Note Text: HISTORY AND PHYSICAL EXAMINATION (IMPACT) SERVICE DATE: 04/29/2018 SERVICE TIME: 10:38 AM PRIMARY CARE PHYSICIAN: LEON JIMENEZ MD CHIEF COMPLAINT/HISTORY OF PRESENT ILLNESS: Ms. Goyal is a 57 year old female referred to de for preoperative evaluation. My final recommendations will be communicated back to the requesting physician/surgeon by the way of the shared medical record. Referring Surgeon: Dr. Jones Date of Surgery: 05/21 Planned Surgery/Procedure: repair of large ventral hernia with mesh Indication for Planned Surgery / Procedure: recurrent symptomatic ventral hernia s/p multiple abdominal surgeries for bowel resection with reconstructed abdominal wall after necrotizing fasciitis. + has dumping syndrome which is chronic + 4 to 6 times per day Refer to Assessment section for details of any comorbidities. Patient is Able to Perform the Following Physical Activity: Do light work around the house, such as dusting or washing dishes (2.70 METs) Walk a block or two on level ground (2.75 METs) Climb a flight of stairs or walk up a hill (5.50 METs) Patient's functional class is I based on self-reported physical activity. Significant Anesthesia Considerations: Postop nausea/vomiting. PAST MEDICAL/SURGICAL/FAMILY/SOCIAL HISTORY PAST MEDICAL HISTORY Diagnosis Date - Abdominal pain, generalized CHRONIC PAIN MANAGEMENT - Bacterial overgrowth syndrome - Bowel disease - Depressive disorder, not elsewhere classified on cymbalta - Diabetes mellitus (HCC) 1980s on insulin since 1982 - Fracture - GERD (gastroesophageal reflux disease) resolved since 2004 - HTN (hypertension) resolved since 2004 - Incisional hernia without mention of obstruction or gangrene - Irritable bowel syndrome - Necrotizing fasciitis (HCC) - Obesity, unspecified 05-23-10 STATED BMI 35.91 Ht: 70 Wt: 250 lbs - Open wound of abdominal wall, anterior, complicated 1 - PMH - PAST MEDICAL HISTORY OF irritable bowel syndrome, necrotizing fasciitis, hypertension, diabetes, GERD, gastritis, - PMH - PAST MEDICAL HISTORY OF 09/2009 left foot break - RSD lower limb seen by pain management PAST SURGICAL HISTORY Procedure Laterality Date - ARTHROS SHLDR DX W/WO SYNV BX Right 05/03/2017 Right shoulder arthroscopy, glenoid chondroplasty - FEEDING TUBE-SPECIFY J-tube - GASTRIC BYPASS, LION-EN-Y 04/27/11 - HYSTERECTOMY HX 2003 - PAST SURGICAL HISTORY OF colostomy, partial colectomy,OSMAR/BSO, right hand tendon rplaced, fatty tumor excision back and thigh,ulnar nreve surgery bilaterally, tonsillectomy - PAST SURGICAL HISTORY OF 2005 repair of fistulas - PAST SURGICAL HISTORY OF 2005 translupe colostomy - PAST SURGICAL HISTORY OF 2004 debredement due to necratizing fascitis - PAST SURGICAL HISTORY OF 2005 hysterectomy - PAST SURGICAL HISTORY OF STATES > 113 ABDOMINAL SURGERIES - PAST SURGICAL HISTORY OF resversal of colostomy - PAST SURGICAL HISTORY OF 10/2015 hernia repair/abdominal muscle repair - REPAIR COMPL ROTATOR CUFF AVULSN,CHR Right 05/03/2017 Glenoid chondroplasty, labtral debridement, SAD - TONSILLECTOMY HX 1977 FAMILY HISTORY Problem Relation Age of Onset - other (Bipolar) Mother - Diabetes Father Type 2 - Heart Father hypertension - Colon Cancer Paternal Grandfather dx'd age 61? 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 Per pt 04/29/18 ) Disp: 5 Pen Rfl: 5 losartan (COZAAR) 50 mg tablet Take 1 tablet by mouth once daily. Disp: 30 tablet Rfl: 11 metoprolol succinate ER (TOPROL XL) 25 mg 24 hr tablet TAKE ONE TABLET BY MOUTH DAILY Disp: 30 tablet Rfl: 0 aspirin, enteric coated (ASPIRIN, ENTERIC COATED) 81 mg EC tablet TAKE ONE TABLET BY MOUTH DAILY Disp: 30 tablet Rfl: 0 amLODIPine (NORVASC) 5 mg tablet Take 2 tablets by mouth once daily. Disp: 180 tablet Rfl: 5 omeprazole (PRILOSEC) 20 mg capsule Take 1 capsule by mouth twice daily. Disp: 180 capsule Rfl: 3 meloxicam (MOBIC) 15 mg tablet Take 1 tablet by mouth once daily. Disp: 30 tablet Rfl: 5 clonazePAM (KLONOPIN) 1 mg tablet Take 1 tablet by mouth daily at bedtime for 30 days. Disp: 30 tablet Rfl: 3 QUEtiapine (SEROQUEL) 100 mg tablet Take 1 tablet by mouth twice daily. Disp: 180 tablet Rfl: 3 insulin aspart U-100 (NOVOLOG) 100 unit/mL inpn 15 units before meals + 2 u per 50 >200 TDD 75 units Disp: 10 Pen Rfl: 11 DULoxetine (CYMBALTA) 60 mg capsule Take 1 capsule by mouth daily at bedtime. Disp: 90 capsule Rfl: 3 gabapentin (NEURONTIN) 100 mg capsule 300 mg daily at bedtime Disp: 90 capsule Rfl: 11 Diaper,Brief, Adult,Disposable (PREVAIL ADJUST UNDERWEAR SHABANA LARA) misc 1 Each as needed. Dx: N36.0, K58.9 Disp: 250 Each Rfl: 11 blood sugar diagnostic (ONETOUCH ULTRA TEST) test strip TEST BLOOD SUGAR 6 TO 8 TIMES DAILY Dx: E11.9 Insulin:yes Disp: 800 Strip Rfl: 3 Lancets lancets Use as instructed to test blood sugars 8 times daily E11.9 Disp: 800 Each Rfl: 3 Blood-Glucose Meter (ONETOUCH ULTRA2) monitoring kit As directed Disp: 1 Each Rfl: 0 pen needle, diabetic 33 gauge x 5/32 ndle 1 Each as directed. Use with injections 4x daily E11.9 Disp: 400 Each Rfl: 3 LANCETS REGULAR MISC 1 Each as directed. Use 6 x daily Disp: Rfl: cholecalciferol, Vitamin D3, (VITAMIN D3) 50,000 unit cap capsule Take 1 capsule by mouth once each week. Take with your largest meal of the day Disp: 12 capsule Rfl: 4 Multivits,CalciumAND Minerals-FA 267 mcg tab Take 1 tablet by mouth twice daily. Centrum Adult Chewables MVI with minerals is preferred; must be chewable Disp: 60 tablet Rfl: 99 Blood Sugar Diagnostic, Disc strp 1 Each as directed. CHECK BLOOD GLUCOSE EIGHT TIMES PER DAY/ Disp: Rfl: estradiol (ESTRACE) 0.01 % (0.1 mg/gram) vaginal cream 1/2 inch of cream to lower vagina qhs twice weekly Disp: 1 Tube Rfl: 1 potassium chloride (K-TAB) 10 mEq tablet Take 1 tablet by mouth twice daily. Disp: 60 tablet Rfl: 6 Current Facility-Administered Medications: denosumab 60 mg injection (PROLIA) 60 mg SUBCUTANEOUS Q 6 MONTH Pool [place] 60 mg at 01/21/18 1356 ALLERGIES Allergen Reactions - Bactrim [Sulfametho* Other: See Comments Cardiac issues, CIPRO IV only - Cipro I.V. [Ciprofl* Hives, Shortness of Breath - Dimetapp [Pseudoeph* Vomiting violently ill when overdosed on it as child - Erythromycin hives ok with zithromax - Keflex [Cephalexin] OK to give zosyn per 06-28-06 - Latex Rash rash, breaks out everywhere, n/v , feels weak Can still eat food that is considered for latex allergies No allergic to latex foods per patient isaak 05/07/11 - Tetracycline hives REVIEW OF SYSTEMS General: No weight loss, malaise or fevers. 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 No neurological symptoms or problems. Respiratory: No history of current cough or dyspnea, or pneumonia in the past 6 weeks. No history of respiratory/pulmonary symptoms or problems. Cardiovascular: Hypertension requiring meds, No CAD/CHF/VTE GI: per HPI : No history of UTI in past 6 weeks. No history of renal failure. Not currently on or requiring dialysis. 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 No history of hematological symptoms or problems. Oncology: distant uterine + cx cancer, s/p OSMAR + BSO in 2003 Psych: Depression, helped by med s Skin: Negative for lesions, rash, and itching. PHYSICAL EXAM VITALS: BP 113/65 Pulse 75 Temp (Src) 98.4 (Oral) Ht 5' 10 (1.78m) Wt 228 lb (103.4kg) SpO2 98% BMI 32.71 kg/(m2). General: Alert and oriented Skin: Normal color, no rash, no lesions. HEENT: EOM, pupils equal, round and reactive. Cardiovascular: Normal S1 AND S2, no rubs, murmurs or gallops. No JVD. Pulse regular. Lungs: Normal breath sounds, no wheezes or crackles. Abdomen: Soft, + tender LLQ, no rigidity. Extremities: No deformity,+1 LE edema , no joint swelling or clubbing. Neurological: Normal cognition and motor skills. Pulses: Carotid and radial pulses normal +2. ASSESSMENT Ms. Goyal is a 57 year old female referred to me for preoperative evaluation. Patient has the following medical comorbidities which might affect the perioperative course: - Type II Diabetes with peripheral neuropathy. Patient is on insulin. - Hypertension, well controlled. - Patient is overweight related to excessive caloric intake. Body mass index is 32.71 kg/m?. - GERD controlled - SIBO in the past + currently has dumping syndrome which is chronic Patient's RCRI (Revised Cardiac Risk Index: CAD/CHF/Stroke or TIA/SCr>2/DM on Insulin/High Risk Surgery) score is 1 and is at low risk for major adverse cardiac events in the perioperative period. Diagnostic tests reviewed for today's visit: PENDING + ECHO 08/2017: - Exam indication: SVT - The left ventricle is normal in size. There is no left ventricular hypertrophy. Left ventricular systolic function is normal. EF = 66 ? 5% (2D biplane) Normal left ventricular diastolic function. - The right ventricle is normal in size. Right ventricular systolic function is normal. - There are no significant valvular abnormalities. - Estimated right ventricular systolic pressure is 25 mmHg consistent with normal pulmonary artery pressures. Estimated right atrial pressure is 5 mmHg. - Exam was compared with the prior CC echocardiographic exam performed on 02/10/2013 There is no significant change. ? TAMINE STRESS ECHO 2012: Stress protocol consisted of dobutamine up to 40 mcg/kg/min with hand director of surgery and atropine. Test was terminated due to completed protocol. Rest HR 67 bpm. Peak HR 146 bpm. (86 % MPHR) Rest BP 133 mmHg/69 mmHg. Peak BP 167 mmHg/71 mmHg. Patient experienced no symptoms during stress. Rest ECG normal. Stress ECG normal ST segment response and premature ventricular contraction. Stress complications: none. The left ventricular cavity size is decreased with stress. + CONCLUSIONS: - Exam indication: Preop evaluation for noncardiac surgery with low/intermediate clinical risk - The dobutamine stress echo was negative for ischemia at 86 % of MPHR. - The left ventricle is normal in size. Left ventricular systolic function is normal. EF = 65 ? 5% (2D biplane) - The right ventricle is normal in size. Right ventricular systolic function is normal. - Normal valvular function on 2D and Doppler parameters. Aortic valve morphology not visualized. - No prior echocardiographic exam available for comparison.? /RECOMMENDATIONS CARDIAC: Patient is at optimal cardiac condition for scheduled surgery / procedure. PULMONARY: Patient is at optimal Pulmonary status for scheduled surgery / procedure. Suggest the following in the post-operative period: Aggressive bronchopulmonary hygiene and Early ambulation ENDOCRINE: DIABETES: - Initiate [facility] Guidelines for perioperative diabetes management. Check finger stick glucose on the morning of surgery. - Patient has been instructed on Preoperative DM medication management. - see below Needs post op glucose monitoring + sliding scale Insulin for coverage. Add Lantus Insulin 10 units qAM this admission Resume pre admission Insulin regimen at time of DC VASCULAR/ANTICOAGULATION: VTE prophylaxis as deemed appropriate by the surgical service. Patient is optimally prepared for surgery pending labs and EKG Patient Instructions: As per patient instructions section. I have discussed the above recommendations with the patient in detail, in hai and lay terms, and provided a written summary of instructions as needed. We have discussed that no surgery is without risk, but that the goal of preoperative assessment is to optimize that risk, and that was clearly understood by the patient. I have given ample opportunity for the patient to ask questions, and answered all questions to their stated satisfaction. SIGNATURE: Satya King MD PATIENT NAME: Adri Goyal DATE: April 29, 2018 TIME: 10:38 AM Addendum 04/29 PM EKG: NSR, normal axis, no acute changes + Labs: Component Latest Ref Rng AND Units 04/29/2018 WBC 3.70 - 11.00 k/uL 6.80 RBC 3.90 - 5.20 m/uL 4.37 Hemoglobin 11.5 - 15.5 g/dL 12.5 Hematocrit 36.0 - 46.0 % 38.7 MCV 80.0 - 100.0 fL 88.6 MCH 26.0 - 34.0 pG 28.6 MCHC 30.5 - 36.0 g/dL 32.3 RDW-CV 11.5 - 15.0 % 14.3 Platelet Count 150 - 400 k/uL 249 MPV 9.0 - 12.7 fL 9.9 Neut% % 72.0 Abs Neut (ANC) 1.45 - 7.50 k/uL 4.88 Lymph% % 20.7 Abs Lymph 1.00 - 4.00 k/uL 1.41 [place]% % 4.9 Abs [place] <0.87 k/uL 0.33 Eosin% % 2.1 Abs Eosin <0.46 k/uL 0.14 Baso% % 0.3 Abs Baso <0.11 k/uL <0.03 Nucleated Reds 0 /100 WBC 0.0 Absolute nRBC <0.01 k/uL <0.01 Diff Type Auto Diff Protein, Total 6.3 - 8.0 g/dL 7.1 Albumin 3.9 - 4.9 g/dL 4.6 Calcium 8.5 - 10.2 mg/dL 9.0 Bilirubin, Total 0.2 - 1.3 mg/dL 0.9 Alkaline Phosphatase 34 - 123 U/L 82 AST 13 - 35 U/L 16 Glucose 74 - 99 mg/dL 135 (H) BUN 7 - 21 mg/dL 15 Creatinine 0.58 - 0.96 mg/dL 0.90 Sodium 136 - 144 mmol/L 142 Potassium 3.7 - 5.1 mmol/L 4.7 Chloride 97 - 105 mmol/L 104 CO2 22 - 30 mmol/L 24 Anion Gap 9 - 18 mmol/L 14 ALT 7 - 38 U/L 11 eGFR- >60 eGFR-All Other Races . >60 Hemoglobin A1C 4.3 - 5.6 % 5.9 (H) Estimated Average Glucose mg/dL 123 PT Sec 9.7 - 13.0 sec 9.9 PT INR 0.9 - 1.3 0.9 APTT 23.0 - 32.4 sec 24.5 + UA + WBC + nitrites, as of 05/02 Urine CANDS still NEG OK to proceed with surgery. Satya King MD CNCO Observed: 04/09/2018 Status: COMPLETED Source: [place] 3:42 PM [facility] REPOSITORY [facility] ID: [id number] Author: Mammography Coordinator Service: (none) Author Type: Physician Type: Letter Filed: 04/10/2018 11:32 PM Note Text: April 09, 2018 PID: [id number] Adri Goyal [address] [place] [address] [address] [place] [address] Dear Ms. Goyal, We are pleased to inform you that the results of your recent breast imaging exam on 04/09/2018 are normal. Early detection of cancer is very important. We also understand recommendations regarding breast cancer screening are controversial. Please discuss with your primary care provider which strategy is best for you and whether a mammogram is right for you. Your imaging studies and report will be kept on file at [facility] as part of your permanent medical record and are available for your continuing care. Thank you for allowing us to help in meeting your health care needs. Sincerely, Dr. Davis Interpreting Radiologist [facility] (Normal over 40) PROGRESS Observed: 04/09/2018 Status: COMPLETED Source: [place] 2:32 PM [facility] RE[facility]IT[facility] ID: [id number] Author: Patrice Valdes Service: (none) Author Type: Physician Type: Progress Notes Filed: 04/09/2018 3:22 PM Note Text: Adri Goyal is a 57 year old who presents for her annual gynecologic exam with complaints, vaginal pruritis and vulvar pruritis several months. . Hasn't used any meds. Has tried benadryl in past w/o relief. Does bother her more at night. Does seem to flare and wane but never completely resolve. No leaking of urine. Doesn't feel like she empties completely. Has h/o kidney stones. Has some burning w/ urination at times. Gets up 5-6 times a night. Some urge w/ small amount of urine. Was on estrogen patches up until 3 months ago and started getting rash from them so stopped them. However, even w/ those intercourse was very painful. Postmenopausal: yes HRT use: Yes Last Pap: n/a s/p hysterectomy abnormal, HPV: N/A History of abnormal pap: Yes Last mammogram: 2018 pending History of abnormal mammogram: No Sexually active: occas Obstetric History T0 L5 SAB0 TAB0 Ectopic0 Multiple0 Live Births0 PAST MEDICAL HISTORY Diagnosis Date - Abdominal pain, generalized CHRONIC PAIN MANAGEMENT - Bacterial overgrowth syndrome - Bowel disease - Depressive disorder, not elsewhere classified on cymbalta - Diabetes mellitus (HCC) 1980s on insulin since 1982 - Fracture - GERD (gastroesophageal reflux disease) resolved since 2004 - HTN (hypertension) resolved since 2004 - Incisional hernia without mention of obstruction or gangrene - Irritable bowel syndrome - Necrotizing fasciitis (HCC) - Obesity, unspecified 05-23-10 STATED BMI 35.91 Ht: 70 Wt: 250 lbs - Open wound of abdominal wall, anterior, complicated 1 - PMH - PAST MEDICAL HISTORY OF irritable bowel syndrome, necrotizing fasciitis, hypertension, diabetes, GERD, gastritis, - PMH - PAST MEDICAL HISTORY OF 09/2009 left foot break - RSD lower limb seen by pain management PAST SURGICAL HISTORY Procedure Laterality Date - ARTHROS SHLDR DX W/WO SYNV BX Right 05/03/2017 Right shoulder arthroscopy, glenoid chondroplasty - FEEDING TUBE-SPECIFY J-tube - GASTRIC BYPASS, LION-EN-Y 04/27/11 - HYSTERECTOMY HX 2003 - PAST SURGICAL HISTORY OF colostomy, partial colectomy,OSMAR/BSO, right hand tendon rplaced, fatty tumor excision back and thigh,ulnar nreve surgery bilaterally, tonsillectomy - PAST SURGICAL HISTORY OF 2005 repair of fistulas - PAST SURGICAL HISTORY OF 2005 translupe colostomy - PAST SURGICAL HISTORY OF 2004 debredement due to necratizing fascitis - PAST SURGICAL HISTORY OF 2004 hysterectomy - PAST SURGICAL HISTORY OF STATES > 113 ABDOMINAL SURGERIES - PAST SURGICAL HISTORY OF resversal of colostomy - PAST SURGICAL HISTORY OF 10/2015 hernia repair/abdominal muscle repair - REPAIR COMPL ROTATOR CUFF AVULSN,CHR Right 05/03/2017 Glenoid chondroplasty, labtral debridement, SAD - TONSILLECTOMY HX 1977 FAMILY HISTORY Problem Relation Age of Onset - other (Bipolar) Mother - Diabetes Father Type 2 - Heart Father hypertension - Colon Cancer Paternal Grandfather dx'd age 61? - Hypertension Paternal Grandfather - Diabetes Paternal Grandfather Type 2 - Heart Daughter - Breast Cancer Paternal Aunt - other (Hypoplastic Left heart) Son SOCIAL HISTORY Social History Substance Use Topics - Smoking status: Never Smoker - Smokeless tobacco: Never Used - Alcohol use No REVIEW OF SYSTEMS Abdomen: no constipation, has chronic loose stools. Heartburn Bladder: see HPI, some frequency, discomfort, h/o kidney stones Breast: No breast lumps, nipple d/c, overlying skin changes, redness or skin retraction Allergies and current medication updated:Yes EXAM: There were no vitals taken for this visit. GENERAL: pleasant, female in no apparent distress HEENT: Normocephalic, atraumatic, mucus membranes moist and no lesions NECK: Supple, full range of motion, no adenopathy and thyroid normal DERMATOLOGY: Normal, without lesions, non-icteric and non-hirsute BREAST: soft, non-tender, symmetric, no dominant mass, normal nipple-areolar complex, no lymphadenopathy and no nipple discharge CHEST: Normal inspiratory effort ABDOMEN: soft, non-tender, no masses, pannus moderate and hernia lower abdomen, large scar from previous surgeries w/ resulting indentation of skin from scarring PELVIC: external genitalia normal, normal Bartholin's glands, urethra, [place]'s glands, no vulvar lesions, good vaginal support, physiologic discharge present, normal appearing perineal body and perianal region, cervix surgically absent, cystocele 1st degree, rectocele 1st degree, good support of cuff BIMANUAL: no adnexal masses, non-tender and uterus surgically absent RECTOVAGINAL: deferred. NEURO: alert and oriented x3,exam grossly non-focal EXTREMITIES: normal ASSESSMENT/PLAN: 1) Health maintenance: Pap/HPV screening no longer needed Mammogram ordered consider urogyn consult, was going to see urology. Has midline cystocele, but good cuff wupport. May need urodynamics, order in. Atrophic vaginitis- symptomatic w/ intercourse and worsening bladder symptoms since she stopped estrogen patch. will try vaginal estrogen. 2) Follow up one year or sooner as needed Patrice Valdes MD CNOV Observed: 04/09/2018 Status: COMPLETED Source: [place] 2:30 PM [facility] REPOSITORY Office Visit (WOOB) ADRI GOYAL ([id number]) 1960 F TPN Date Time Provider Department 04/09/18 2:30 PM PATRICE VALDES WOOB During your visit today, we recorded the following information about you: Blood pressure Weight Height 110/66 105.2 kg 1.753 m Patrice Valdes MD 04/09/2018 3:22 PM Signed Adri Mcginnis Jay Jay is a 57 year old who presents for her annual gynecologic exam with complaints, vaginal pruritis and vulvar pruritis several months. . Hasn't used any meds. Has tried benadryl in past w/o relief. Does bother her more at night. Does seem to flare and wane but never completely resolve. No leaking of urine. Doesn't feel like she empties completely. Has h/o kidney stones. Has some burning w/ urination at times. Gets up 5-6 times a night. Some urge w/ small amount of urine. Was on estrogen patches up until 3 months ago and started getting rash from them so stopped them. However, even w/ those intercourse was very painful. Postmenopausal: yes HRT use: Yes Last Pap: n/a s/p hysterectomy abnormal, HPV: N/A History of abnormal pap: Yes Last mammogram: 2018 pending History of abnormal mammogram: No Sexually active: occas Obstetric History T0 L5 SAB0 TAB0 Ectopic0 Multiple0 Live Births0 PAST MEDICAL HISTORY Diagnosis Date - Abdominal pain, generalized CHRONIC PAIN MANAGEMENT - Bacterial overgrowth syndrome - Bowel disease - Depressive disorder, not elsewhere classified on cymbalta - Diabetes mellitus (HCC) 1980s on insulin since 1982 - Fracture - GERD (gastroesophageal reflux disease) resolved since 2004 - HTN (hypertension) resolved since 2004 - Incisional hernia without mention of obstruction or gangrene - Irritable bowel syndrome - Necrotizing fasciitis (HCC) - Obesity, unspecified 05-23-10 STATED BMI 35.91 Ht: 70 Wt: 250 lbs - Open wound of abdominal wall, anterior, complicated 1 - PMH - PAST MEDICAL HISTORY OF irritable bowel syndrome, necrotizing fasciitis, hypertension, diabetes, GERD, gastritis, - PMH - PAST MEDICAL HISTORY OF 09/2009 left foot break - RSD lower limb seen by pain management PAST SURGICAL HISTORY Procedure Laterality Date - ARTHROS SHLDR DX W/WO SYNV BX Right 05/03/2017 Right shoulder arthroscopy, glenoid chondroplasty - FEEDING TUBE-SPECIFY J-tube - GASTRIC BYPASS, LION-EN-Y 04/27/11 - HYSTERECTOMY HX 2003 - PAST SURGICAL HISTORY OF colostomy, partial colectomy,OSMAR/BSO, right hand tendon rplaced, fatty tumor excision back and thigh,ulnar nreve surgery bilaterally, tonsillectomy - PAST SURGICAL HISTORY OF 2005 repair of fistulas - PAST SURGICAL HISTORY OF 2005 translupe colostomy - PAST SURGICAL HISTORY OF 2004 debredement due to necratizing fascitis - PAST SURGICAL HISTORY OF 2005 hysterectomy - PAST SURGICAL HISTORY OF STATES > 113 ABDOMINAL SURGERIES - PAST SURGICAL HISTORY OF resversal of colostomy - PAST SURGICAL HISTORY OF 10/2015 hernia repair/abdominal muscle repair - REPAIR COMPL ROTATOR CUFF AVULSN,CHR Right 05/03/2017 Glenoid chondroplasty, labtral debridement, SAD - TONSILLECTOMY HX 1977 FAMILY HISTORY Problem Relation Age of Onset - other (Bipolar) Mother - Diabetes Father Type 2 - Heart Father hypertension - Colon Cancer Paternal Grandfather dx'd age 61? - Hypertension Paternal Grandfather - Diabetes Paternal Grandfather Type 2 - Heart Daughter - Breast Cancer Paternal Aunt - other (Hypoplastic Left heart) Son SOCIAL HISTORY Social History Substance Use Topics - Smoking status: Never Smoker - Smokeless tobacco: Never Used - Alcohol use No REVIEW OF SYSTEMS Abdomen: no constipation, has chronic loose stools. Heartburn Bladder: see HPI, some frequency, discomfort, h/o kidney stones Breast: No breast lumps, nipple d/c, overlying skin changes, redness or skin retraction Allergies and current medication updated:Yes EXAM: There were no vitals taken for this visit. GENERAL: pleasant, female in no apparent distress HEENT: Normocephalic, atraumatic, mucus membranes moist and no lesions NECK: Supple, full range of motion, no adenopathy and thyroid normal DERMATOLOGY: Normal, without lesions, non-icteric and non-hirsute BREAST: soft, non-tender, symmetric, no dominant mass, normal nipple-areolar complex, no lymphadenopathy and no nipple discharge CHEST: Normal inspiratory effort ABDOMEN: soft, non-tender, no masses, pannus moderate and hernia lower abdomen, large scar from previous surgeries w/ resulting indentation of skin from scarring PELVIC: external genitalia normal, normal Bartholin's glands, urethra, [place]'s glands, no vulvar lesions, good vaginal support, physiologic discharge present, normal appearing perineal body and perianal region, cervix surgically absent, cystocele 1st degree, rectocele 1st degree, good support of cuff BIMANUAL: no adnexal masses, non-tender and uterus surgically absent RECTOVAGINAL: deferred. NEURO: alert and oriented x3,exam grossly non-focal EXTREMITIES: normal ASSESSMENT/PLAN: 1) Health maintenance: Pap/HPV screening no longer needed Mammogram ordered consider urogyn consult, was going to see urology. Has midline cystocele, but good cuff wupport. May need urodynamics, order in. Atrophic vaginitis- symptomatic w/ intercourse and worsening bladder symptoms since she stopped estrogen patch. will try vaginal estrogen. 2) Follow up one year or sooner as needed Patrice Valdes MD Referring Provider: SELF [[id number]] Allergies As of Date: 04/09/2018 Noted Allergy Reaction BACTRIM (SULFAMETHOXAZOLE) 08/13/2011 14 - Other: See Comments Comments: Cardiac issues, CIPRO IV only CIPRO I.V. (CIPROFLOXACIN) 06/28/2006 4 - Hives 12 - Shortness of Breath DIMETAPP (PSEUDOEPHEDRINE-DM) 12/04/2005 11 - Vomiting Comments: violently ill when overdosed on it as child ERYTHROMYCIN 11/29/2005 Comments: hives ok with zithromax KEFLEX (CEPHALEXIN) 11/29/2005 Comments: OK to give zosyn per MD 1-12-07 LATEX 11/29/2005 2 - Rash Comments: rash, breaks out everywhere, n/v , feels weak Can still eat food that is considered for latex allergies No allergic to latex foods per patient isaak 05/07/11 TETRACYCLINE 02/05/2006 Comments: hives Date Reviewed: 04/09/2018 Reviewed by: Patrice Valdes - Fully Assessed Reason for Visit: Yearly Exam [187] Primary Visit Diagnosis:Encounter for gynecological examination with abnormal finding [Z01.411] Other Visit Diagnoses:Encounter for screening mammogram for breast cancer [Z12.31] Urinary frequency [R35.0] Cystocele, midline [N81.11] Postmenopausal atrophic vaginitis [N95.2] Dyspareunia, female [N94.10] Order(s):MOO SCREENING [[id number]] Order #: [id number] FUTURE CONSULT TO URO GYNECOLOGY [[id number]] Order #: [id number]: 1 URODYNAMICS WHI [[id number]] Order #: [id number] estradiol (ESTRACE) 0.01 % (0.1 mg/gram) vaginal cream1/2 inch of cream to lower vagina qhs twice weeklyDisp: 1 TubeRfl: 1 Prescriptions as of 04/09/2018 Sig: ESTRADIOL 0.01% (0.1 MG/GRAM)* 1/2 inch of cream to lower va* METOPROLOL SUCCINATE ER 25 MG* TAKE ONE TABLET BY MOUTH DAILY ASPIRIN 81 MG TABLET,DELAYED * TAKE ONE TABLET BY MOUTH DAILY AMLODIPINE 5 MG TABLET Take 2 tablets by mouth once * OMEPRAZOLE 20 MG CAPSULE,JAG* Take 1 capsule by mouth twice* MELOXICAM 15 MG TABLET Take 1 tablet by mouth once d* CLONAZEPAM 1 MG TABLET Take 1 tablet by mouth daily * QUETIAPINE 100 MG TABLET Take 1 tablet by mouth twice * INSULIN ASPART U-100 100 UNI* 15 units before meals + 2 u p* INSULIN GLARGINE (U-100) 100 * 20 units sq twice daily DULOXETINE 60 MG CAPSULE,JAG* Take 1 capsule by mouth daily* LOSARTAN 50 MG TABLET Take 1 tablet by mouth once d* POTASSIUM CHLORIDE ER 10 MEQ * Take 1 tablet by mouth twice * GABAPENTIN 100 MG CAPSULE 300 mg daily at bedtime DIAPER,BRIEF,ADULT,DISPOSABLE 1 Each as needed. Dx: N36.0,* BLOOD SUGAR DIAGNOSTIC STRIPS TEST BLOOD SUGAR 6 TO 8 TIMES* LANCETS Use as instructed to test blo* BLOOD-GLUCOSE METER KIT As directed PEN NEEDLE, DIABETIC 33 GAUGE* 1 Each as directed. Use with * LANCETS REGULAR MISC 1 Each as directed. Use 6 x d* CHOLECALCIFEROL (VITAMIN D3) * Take 1 capsule by mouth once * MULTIVITAMIN WITH CALCIUM AND* Take 1 tablet by mouth twice * BLOOD SUGAR DIAGNOSTIC, DISC * 1 Each as directed. 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 Essential Hypertension, Benign [I10] INVALID FOR* More... Hyperpotassemia [E87.5] INVALID FOR*04/15/2017 Abdominal pain, left lower quadrant [R10.32] INVALID FOR*04/15/2017 Abdominal pain, right lower quadrant [R10.31] INVALID FOR*04/15/2017 Abdominal Pain, Generalized [R10.84] INVALID FOR* HTN (hypertension) [I10] 04/15/2017 More... GERD (Gastroesophageal Reflux Disease) [K21.9] More... Irritable Bowel Syndrome [K58.9] RSD lower limb [G90.529] 04/15/2017 Open wound of abdominal wall, anterior, complic* 04/15/2017 Depressive disorder, not elsewhere classified [* More... Morbid obesity (HCC) [E66.01] INVALID FOR*12/25/2016 Dietary surveillance and counseling [Z71.3] INVALID FOR*04/15/2017 Gastric bypass status for obesity [Z98.84] INVALID FOR*04/15/2017 More... Nausea AND vomiting [R11.2] INVALID FOR*04/15/2017 Other and unspecified postsurgical nonabsorptio*INVALID FOR*04/15/2017 Osteoporosis [M81.0] INVALID FOR*08/20/2013 On total parenteral nutrition (TPN) [Z78.9] INVALID FOR*04/15/2017 Malabsorption [K90.9] INVALID FOR* Fracture [T14.8XXA] INVALID FOR*04/15/2017 Hernia of abdominal wall [K43.9] INVALID FOR* H/O hyperglycemia [Z86.39] INVALID FOR*04/15/2017 Diarrhea [R19.7] INVALID FOR* Insomnia [G47.00] INVALID FOR* More... Diabetic neuropathy, painful (HCC) [E11.40] INVALID FOR* More... DM (diabetes mellitus) (HCC) [E11.9] INVALID FOR* More... Unspecified intestinal malabsorption [K90.9] INVALID FOR* More... Osteoporosis [M81.0] INVALID FOR* More... Vitamin D deficiency [E55.9] INVALID FOR* More... Post-operative state [Z98.890] INVALID FOR*04/15/2017 Obesity (BMI 30.0-34.9) [E66.9] INVALID FOR* More... Chronic pain in right shoulder [M25.511, G89.29]INVALID FOR* More... Impingement syndrome of right shoulder [M75.41] INVALID FOR* More... Migraines [G43.909] INVALID FOR* DDD (degenerative disc disease), lumbar [M51.36]INVALID FOR* Acute pain of right shoulder [M25.511] INVALID FOR* Ventral hernia without obstruction or gangrene *INVALID FOR* More... Prescriptions ordered this encounter Disp Refills Start End ESTRADIOL 0.01% (0.1 MG/GRAM) VAGINA* 1 Tu* 1 04/09/2018 Si/2 inch of cream to lower vagina qhs twice weekly Medications Discontinued During This Encounter omeprazole (PRILOSEC) 20 mg capsule 180 * 0 04/07/2018 04/09/2018 Sig: TAKE ONE CAPSULE BY MOUTH TWICE DAILY Disc: Reason for discontinue is not on file. fluticasone (FLONASE) 50 mcg/actuati* 3 Jun* 3 04/07/2018 04/09/2018 Route: EACH NOSTRIL Sig: Use 2 Sprays in each nostril once daily. Disc: Reason for discontinue is not on file. zolpidem (AMBIEN) 10 mg tab 30 t* 2 04/07/2018 04/09/2018 Class: Print RX Route: ORAL Sig: Take 1 tablet by mouth at bedtime as needed for up to 30 days. Disc: Reason for discontinue is not on file. Disposition: Return in 1 year (on 04/09/2019) for Annual Exam. Follow-up and Disposition History Recorded Encounter Status:Closed by PATRICE VALDES MD on 04/09/18 [facility] SCREENING Observed: 04/09/2018 Status: F Source: [place] 2:22 PM [facility] REPOSITORY * * *Final Report* * * DATE OF EXAM: Apr 09 2018 2:22PM [facility] [id number] - [facility] SCREENING / PROCEDURE REASON: Encounter for screening mammogram for malignant neoplasm of breast * * * * Physician Interpretation * * * * RESULT: #[id number] - [facility] SCREENING BILATERAL DIGITAL SCREENING MAMMOGRAM WITH CAD: 04/09/2018 HISTORY: Encounter For Screening Mammogram For Malignant Neoplasm Of Breast /patient reports NO breast symptoms /priors available for comparison. RESULT: TECHNIQUE: The study was acquired using full field digital technology and interpreted from soft copy. Current study was also evaluated with a Computer Aided Detection (CAD). Comparison is made to exams dated: 04/22/2017 mammogram, 04/19/2016 mammogram, and 02/16/2015 mammogram - [facility]. There are scattered fibroglandular elements in both breasts. No significant masses, calcifications, or other findings are seen in either breast. There has been no significant interval change. IMPRESSION: NEGATIVE There is no mammographic evidence of malignancy.A 1 year screening mammogram is recommended. Silva Davis M.D. fa/penrad:04/09/2018 15:42:01 Web Content Specialist: Bertha CARMICHAEL(Zainab)(Lauren), [facility] letter sent: Normal over 40 Mammogram BI-RADS: 1 Negative Multiple national specialty organizations have released breast cancer screening guidelines for women at average risk for developing breast cancer - guidelines that are based on both evidence and opinion, yet differ on when to start and how often to screen for breast cancer. With representation from Breast Imaging, Internal Medicine, Women's Health, Family Medicine, and Medical/Surgical Oncology, the [facility] has carefully reviewed the data and reached the following consensus: 1) All women should engage in shared decision-making with their providers to decide when to start and how often to screen; 2) All women should have the opportunity to start screening mammography at age 40; 3) For women ages 45-55, we recommend annual screening mammograms; 4) For women ages 55 and over, we support both the transition from an annual to a biennial interval if this aligns more with patient's values and preferences, or continuation with annual screening; 5) All women should discuss with their providers when to stop screening mammograms. Warehouse Hand: John Transcribe Date/Time: Apr 09 2018 2:07P Dictated by: SILVA DAVIS MD This examination was interpreted and the report reviewed and electronically signed by: SILVA DAVIS MD on Apr 09 2018 3:43PM EST [id number] Observed: 04/09/2018 Status: COMPLETED Source: [place] 2:06 PM [facility] REPOSITORY O ID: [id number] Author: Elvia Carmichael Service: (none) Author Type: (none) Type: Progress Notes Filed: 04/09/2018 2:25 PM Note Text: Radiology Service Progress Note PATIENT NAME: Adri Goyal DATE OF SERVICE: April 09, 2018 TIME: 2:06 PM PATIENT IDENTITY VERIFICATION COMPLETED USING TWO (2) METHODS: Patient confirmed name verbally and Date of . PATIENT GENDER DATA: Female. status: : No status: NO. PATIENT RELEVANT IMPLANT DATA REVIEWED: Not Applicable RADIOLOGY DEPARTMENT: [facility] niles scr mammogram PERIPHERAL IV DATA: Not applicable SIGNED BY: Elvia Carmichael April 09, 2018 2:06 PM HOSP Observed: 03/26/2018 Status: COMPLETED Source: [place] 12:00 AM [facility] REPOSITORY Patient Update (ODETTE) ADRI GOYAL ([id number]) 1960 F TPN Date Time Provider Department 03/26/18 DALIA JONES During your visit today, we recorded the following information about you: Allergies As of Date: 03/26/2018 Noted Allergy Reaction BACTRIM (SULFAMETHOXAZOLE) 08/13/2011 14 - Other: See Comments Comments: Cardiac issues, CIPRO IV only CIPRO I.V. (CIPROFLOXACIN) 06/28/2006 4 - Hives 12 - Shortness of Breath DIMETAPP (PSEUDOEPHEDRINE-DM) 12/04/2005 11 - Vomiting Comments: violently ill when overdosed on it as child ERYTHROMYCIN 11/29/2005 Comments: hives ok with zithromax KEFLEX (CEPHALEXIN) 11/29/2005 Comments: OK to give zosyn per MD -05-23 LATEX 11/29/2005 2 - Rash Comments: rash, breaks out everywhere, n/v , feels weak Can still eat food that is considered for latex allergies No allergic to latex foods per patient isaak 05/07/11 TETRACYCLINE 02/05/2006 Comments: hives Date Reviewed: 03/24/2018 Reviewed by: Dalia Jones - Fully Assessed Reason for Visit: 05/21/2018 CURE [Other] Cmt: OVH Primary Visit Diagnosis:Preoperative examination [Z01.818] Other Visit Diagnoses:Generalized abdominal pain [R10.84] Postsurgical malabsorption, 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] Order(s):REFER FOR ADMIT INTERVIEW [[id number]] Order #: [id number] CONSULT TO ANESTHESIOLOGY [9002] Order #: [id number]: 1 CONSULT TO [facility]IC[facility] [[id number]] Order #: [id number]: 1 ECG COMPLETE W INTERPRETATION [ECG01] Order #: [id number] FUTURE CONSULT TO INT MED-IMPACT [] Order #: [id number]: 1 CONSULT TO PATIENT EDUCATION [[id number]] Order #: [id number]: 1 KATIE PT ED GENERAL SURG [[id number]] Order #: [id number]: 1 KATIE WHAT TO EXPECT DURING YOUR HOSPITAL STAY [] Order #: [id number]: 1 KATIE PT ED ANESTHESIA [[id number]] Order #: [id number]: 1 KATIE PT ED GENERAL SURG [[id number]] Order #: [id number]: 1 KATIE PT ED MISC [] Order #: [id number]: 1 ACTIVATED PTT [SQPTT] Order #: [id number] FUTURE CBC + DIFF [SQCBCDIF] Order #: [id number] FUTURE COMP METABOLIC PANEL [SQCMP] Order #: [id number] FUTURE CONFIRM BLOOD TYPE [SQCONABO] Order #: [id number] FUTURE HEPATIC FUNCTION PNL [SQHFP] Order #: [id number] FUTURE HGB A1C [HHPNZ0V] Order #: [id number] FUTURE PROTHROMBIN TIME/PT [SQPT] Order #: [id number] FUTURE TYPE + SCREEN,30 DAY [XPHENK19] Order #: [id number] FUTURE URINALYSIS WITH MICROSCOPIC [SQUAWMIC] Order #: [id number] FUTURE SURGICAL REQUEST - ELECTIVE [[id number]] Order #: [id number]: 1 Prescriptions as of 03/26/2018 Sig: MELOXICAM 15 MG TABLET Take 1 tablet by mouth once d* CLONAZEPAM 1 MG TABLET Take 1 tablet by mouth daily * ZOLPIDEM 10 MG TABLET Take 1 tablet by mouth at bed* QUETIAPINE 100 MG TABLET Take 1 tablet by mouth twice * INSULIN ASPART U-100 100 UNI* 15 units before meals + 2 u p* INSULIN GLARGINE (U-100) 100 * 20 units sq twice daily DULOXETINE 60 MG CAPSULE,JAG* Take 1 capsule by mouth daily* LOSARTAN 50 MG TABLET Take 1 tablet by mouth once d* POTASSIUM CHLORIDE ER 10 MEQ * Take 1 tablet by mouth twice * GABAPENTIN 100 MG CAPSULE 300 mg daily at bedtime ASPIRIN 81 MG TABLET,DELAYED * TAKE ONE TABLET BY MOUTH DAILY METOPROLOL SUCCINATE ER 25 MG* TAKE ONE TABLET BY MOUTH DAILY FLUTICASONE 50 MCG/ACTUATION * Use 2 Sprays in each nostril * OMEPRAZOLE 20 MG CAPSULE,JAG* Take 1 capsule by mouth twice* DIAPER,BRIEF,ADULT,DISPOSABLE 1 Each as needed. Dx: N36.0,* BLOOD SUGAR DIAGNOSTIC STRIPS TEST BLOOD SUGAR 6 TO 8 TIMES* LANCETS Use as instructed to test blo* BLOOD-GLUCOSE METER KIT As directed PEN NEEDLE, DIABETIC 33 GAUGE* 1 Each as directed. Use with * AMLODIPINE 5 MG TABLET TAKE TWO TABLETS BY MOUTH WILIAN* LANCETS REGULAR MISC 1 Each as directed. Use 6 x d* CHOLECALCIFEROL (VITAMIN D3) * Take 1 capsule by mouth once * MULTIVITAMIN WITH CALCIUM AND* Take 1 tablet by mouth twice * BLOOD SUGAR DIAGNOSTIC, DISC * 1 Each as directed. 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 Essential Hypertension, Benign [I10] INVALID FOR* More... Hyperpotassemia [E87.5] INVALID FOR*04/15/2017 Abdominal pain, left lower quadrant [R10.32] INVALID FOR*04/15/2017 Abdominal pain, right lower quadrant [R10.31] INVALID FOR*04/15/2017 Abdominal Pain, Generalized [R10.84] INVALID FOR* HTN (hypertension) [I10] 04/15/2017 More... GERD (Gastroesophageal Reflux Disease) [K21.9] More... Irritable Bowel Syndrome [K58.9] RSD lower limb [G90.529] 04/15/2017 Open wound of abdominal wall, anterior, complic* 04/15/2017 Depressive disorder, not elsewhere classified [* More... Morbid obesity (HCC) [E66.01] INVALID FOR*12/25/2016 Dietary surveillance and counseling [Z71.3] INVALID FOR*04/15/2017 Gastric bypass status for obesity [Z98.84] INVALID FOR*04/15/2017 More... Nausea AND vomiting [R11.2] INVALID FOR*04/15/2017 Other and unspecified postsurgical nonabsorptio*INVALID FOR*04/15/2017 Osteoporosis [M81.0] INVALID FOR*08/20/2013 On total parenteral nutrition (TPN) [Z78.9] INVALID FOR*04/15/2017 Malabsorption [K90.9] INVALID FOR* Fracture [T14.8XXA] INVALID FOR*04/15/2017 Hernia of abdominal wall [K43.9] INVALID FOR* H/O hyperglycemia [Z86.39] INVALID FOR*04/15/2017 Diarrhea [R19.7] INVALID FOR* Insomnia [G47.00] INVALID FOR* More... Diabetic neuropathy, painful (HCC) [E11.40] INVALID FOR* More... DM (diabetes mellitus) (HCC) [E11.9] INVALID FOR* More... Unspecified intestinal malabsorption [K90.9] INVALID FOR* More... Osteoporosis [M81.0] INVALID FOR* More... Vitamin D deficiency [E55.9] INVALID FOR* More... Post-operative state [Z98.890] INVALID FOR*04/15/2017 Obesity (BMI 30.0-34.9) [E66.9] INVALID FOR* More... Chronic pain in right shoulder [M25.511, G89.29]INVALID FOR* More... Impingement syndrome of right shoulder [M75.41] INVALID FOR* More... Migraines [G43.909] INVALID FOR* DDD (degenerative disc disease), lumbar [M51.36]INVALID FOR* Acute pain of right shoulder [M25.511] INVALID FOR* Ventral hernia without obstruction or gangrene *INVALID FOR* More... Follow-up and Disposition History Recorded Encounter Status:Closed by DALIA JONES MD on 03/26/18 HOSP Observed: 03/26/2018 Status: COMPLETED Source: [place] 12:00 AM [facility] REPOSITORY Patient:Adri Goyal MRN: <[id number]> Height:5' 10(1.778 m) Weight:230 lb 11.2 oz (104.645 kg) Outpatient Medications as of 05/21/18: gabapentin (NEURONTIN) 100 mg capsule metoprolol succinate ER (TOPROL XL) 25 mg 24 hr tablet Fesoterodine (TOVIAZ) 8 mg Tb24 losartan (COZAAR) 50 mg tablet aspirin, enteric coated (ASPIRIN, ENTERIC COATED) 81 mg EC tablet amLODIPine (NORVASC) 5 mg tablet insulin glargine (BASAGLAR KWIKPEN U-100 INSULIN) 100 unit/mL (3 mL) inpn omeprazole (PRILOSEC) 20 mg capsule meloxicam (MOBIC) 15 mg tablet QUEtiapine (SEROQUEL) 100 mg tablet zolpidem (AMBIEN) 5 mg tablet estradiol (ESTRACE) 0.01 % (0.1 mg/gram) vaginal cream clonazePAM (KLONOPIN) 1 mg tablet insulin aspart U-100 (NOVOLOG) 100 unit/mL inpn DULoxetine (CYMBALTA) 60 mg capsule potassium chloride (K-TAB) 10 mEq tablet Diaper,Brief, Adult,Disposable (PREVAIL ADJUST UNDERWEAR SHABANA LARA) misc blood sugar diagnostic (ONEPitchEngineUCH ULTRA TEST) test strip Lancets lancets Blood-Glucose Meter (ONETOUCH ULTRA2) monitoring kit pen needle, diabetic 33 gauge x 5/32 ndle LANCETS REGULAR MISC cholecalciferol, Vitamin D3, (VITAMIN D3) 50,000 unit cap capsule Multivits,CalciumAND Minerals-FA 267 mcg tab Blood Sugar Diagnostic, Disc strp Admission/Clinic Administered Medications as of 05/21/18: lactated ringers infusion clindamycin iv piggyback 900 mg in D5W 50 mL (CLEOCIN) Problem List: Essential hypertension, benign [I10] Abdominal pain, generalized [R10.84] GERD (gastroesophageal reflux disease) [K21.9] Irritable bowel syndrome [K58.9] Depressive disorder, not elsewhere classified [F32.9] Malabsorption [K90.9] Hernia of abdominal wall [K43.9] Diarrhea [R19.7] Insomnia [G47.00] Diabetic neuropathy, painful (HCC) [E11.40] DM (diabetes mellitus) (HCC) [E11.9] Unspecified intestinal malabsorption [K90.9] Osteoporosis [M81.0] Vitamin D deficiency [E55.9] Obesity (BMI 30.0-34.9) [E66.9] Chronic pain in right shoulder [M25.511, G89.29] Impingement syndrome of right shoulder [M75.41] Migraines [G43.909] DDD (degenerative disc disease), lumbar [M51.36] Acute pain of right shoulder [M25.511] Ventral hernia without obstruction or gangrene [K43.9] Mixed stress and urge urinary incontinence [N39.46] Allergies: Bactrim [Sulfamethoxazole] Cipro I.V. [Ciprofloxacin] Dimetapp [Pseudoephedrine-Dm] Erythromycin Keflex [Cephalexin] Latex Tetracycline Date Verified: 05/21/18 Lab Values Lab Value Units Date High Low POTA* 4.7 mmol/L 04/29/2018 5.1 3.7 CISCO* 38.7 % 04/29/2018 46.0 36.0 Progress Notes ([facility]): Satya King MD 05/02/2018 7:18 AM Signed HISTORY AND PHYSICAL EXAMINATION (IMPACT) SERVICE DATE: 04/29/2018 SERVICE TIME: 10:38 AM PRIMARY CARE PHYSICIAN: LEON JIMENEZ MD CHIEF COMPLAINT/HISTORY OF PRESENT ILLNESS: Ms. Goyal is a 57 year old female referred to me for preoperative evaluation. My final recommendations will be communicated back to the requesting physician/surgeon by the way of the shared medical record. Referring Surgeon: Dr. Jones Date of Surgery: 05/21 Planned Surgery/Procedure: repair of large ventral hernia with mesh Indication for Planned Surgery / Procedure: recurrent symptomatic ventral hernia s/p multiple abdominal surgeries for bowel resection with reconstructed abdominal wall after necrotizing fasciitis. + has dumping syndrome which is chronic + 4 to 6 times per day Refer to Assessment section for details of any comorbidities. Patient is Able to Perform the Following Physical Activity: Do light work around the house, such as dusting or washing dishes (2.70 METs) Walk a block or two on level ground (2.75 METs) Climb a flight of stairs or walk up a hill (5.50 METs) Patient's functional class is I based on self-reported physical activity. Significant Anesthesia Considerations: Postop nausea/vomiting. PAST MEDICAL/SURGICAL/FAMILY/SOCIAL HISTORY PAST MEDICAL HISTORY Diagnosis Date - Abdominal pain, generalized CHRONIC PAIN MANAGEMENT - Bacterial overgrowth syndrome - Bowel disease - Depressive disorder, not elsewhere classified on cymbalta - Diabetes mellitus (HCC) 1980s on insulin since 1982 - Fracture - GERD (gastroesophageal reflux disease) resolved since 2004 - HTN (hypertension) resolved since 2004 - Incisional hernia without mention of obstruction or gangrene - Irritable bowel syndrome - Necrotizing fasciitis (HCC) - Obesity, unspecified 05-23-10 STATED BMI 35.91 Ht: 70 Wt: 250 lbs - Open wound of abdominal wall, anterior, complicated 1 - PMH - PAST MEDICAL HISTORY OF irritable bowel syndrome, necrotizing fasciitis, hypertension, diabetes, GERD, gastritis, - PMH - PAST MEDICAL HISTORY OF 09/2009 left foot break - RSD lower limb seen by pain management PAST SURGICAL HISTORY Procedure Laterality Date - ARTHROS SHLDR DX W/WO SYNV BX Right 05/03/2017 Right shoulder arthroscopy, glenoid chondroplasty - FEEDING TUBE-SPECIFY J-tube - GASTRIC BYPASS, LION-EN-Y 04/27/11 - HYSTERECTOMY HX 2003 - PAST SURGICAL HISTORY OF colostomy, partial colectomy,OSMAR/BSO, right hand tendon rplaced, fatty tumor excision back and thigh,ulnar nreve surgery bilaterally, tonsillectomy - PAST SURGICAL HISTORY OF 2005 repair of fistulas - PAST SURGICAL HISTORY OF 2005 translupe colostomy - PAST SURGICAL HISTORY OF 2004 debredement due to necratizing fascitis - PAST SURGICAL HISTORY OF 2004 hysterectomy - PAST SURGICAL HISTORY OF STATES > 113 ABDOMINAL SURGERIES - PAST SURGICAL HISTORY OF resversal of colostomy - PAST SURGICAL HISTORY OF 10/2015 hernia repair/abdominal muscle repair - REPAIR COMPL ROTATOR CUFF AVULSN,CHR Right 05/03/2017 Glenoid chondroplasty, labtral debridement, SAD - TONSILLECTOMY HX 1977 FAMILY HISTORY Problem Relation Age of Onset - other (Bipolar) Mother - Diabetes Father Type 2 - Heart Father hypertension - Colon Cancer Paternal Grandfather dx'd age 61? 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 Per pt 04/29/18 ) Disp: 5 Pen Rfl: 5 losartan (COZAAR) 50 mg tablet Take 1 tablet by mouth once daily. Disp: 30 tablet Rfl: 11 metoprolol succinate ER (TOPROL XL) 25 mg 24 hr tablet TAKE ONE TABLET BY MOUTH DAILY Disp: 30 tablet Rfl: 0 aspirin, enteric coated (ASPIRIN, ENTERIC COATED) 81 mg EC tablet TAKE ONE TABLET BY MOUTH DAILY Disp: 30 tablet Rfl: 0 amLODIPine (NORVASC) 5 mg tablet Take 2 tablets by mouth once daily. Disp: 180 tablet Rfl: 5 omeprazole (PRILOSEC) 20 mg capsule Take 1 capsule by mouth twice daily. Disp: 180 capsule Rfl: 3 meloxicam (MOBIC) 15 mg tablet Take 1 tablet by mouth once daily. Disp: 30 tablet Rfl: 5 clonazePAM (KLONOPIN) 1 mg tablet Take 1 tablet by mouth daily at bedtime for 30 days. Disp: 30 tablet Rfl: 3 QUEtiapine (SEROQUEL) 100 mg tablet Take 1 tablet by mouth twice daily. Disp: 180 tablet Rfl: 3 insulin aspart U-100 (NOVOLOG) 100 unit/mL inpn 15 units before meals + 2 u per 50 >200 TDD 75 units Disp: 10 Pen Rfl: 11 DULoxetine (CYMBALTA) 60 mg capsule Take 1 capsule by mouth daily at bedtime. Disp: 90 capsule Rfl: 3 gabapentin (NEURONTIN) 100 mg capsule 300 mg daily at bedtime Disp: 90 capsule Rfl: 11 Diaper,Brief, Adult,Disposable (PREVAIL ADJUST UNDERWEAR SM- MD) misc 1 Each as needed. Dx: N36.0, K58.9 Disp: 250 Each Rfl: 11 blood sugar diagnostic (ONETOUCH ULTRA TEST) test strip TEST BLOOD SUGAR 6 TO 8 TIMES DAILY Dx: E11.9 Insulin:yes Disp: 800 Strip Rfl: 3 Lancets lancets Use as instructed to test blood sugars 8 times daily E11.9 Disp: 800 Each Rfl: 3 Blood-Glucose Meter (ONETOUCH ULTRA2) monitoring kit As directed Disp: 1 Each Rfl: 0 pen needle, diabetic 33 gauge x 5/32 ndle 1 Each as directed. Use with injections 4x daily E11.9 Disp: 400 Each Rfl: 3 LANCETS REGULAR MISC 1 Each as directed. Use 6 x daily Disp: Rfl: cholecalciferol, Vitamin D3, (VITAMIN D3) 50,000 unit cap capsule Take 1 capsule by mouth once each week. Take with your largest meal of the day Disp: 12 capsule Rfl: 4 Multivits,CalciumAND Minerals-FA 267 mcg tab Take 1 tablet by mouth twice daily. Centrum Adult Chewables MVI with minerals is preferred; must be chewable Disp: 60 tablet Rfl: 99 Blood Sugar Diagnostic, Disc strp 1 Each as directed. CHECK BLOOD GLUCOSE EIGHT TIMES PER DAY/ Disp: Rfl: estradiol (ESTRACE) 0.01 % (0.1 mg/gram) vaginal cream 1/2 inch of cream to lower vagina qhs twice weekly Disp: 1 Tube Rfl: 1 potassium chloride (K-TAB) 10 mEq tablet Take 1 tablet by mouth twice daily. Disp: 60 tablet Rfl: 6 Current Facility-Administered Medications: denosumab 60 mg injection (PROLIA) 60 mg SUBCUTANEOUS Q 6 MONTH Pool [place] 60 mg at 01/21/18 1356 ALLERGIES Allergen Reactions - Bactrim [Sulfametho* Other: See Comments Cardiac issues, CIPRO IV only - Cipro I.V. [Ciprofl* Hives, Shortness of Breath - Dimetapp [Pseudoeph* Vomiting violently ill when overdosed on it as child - Erythromycin hives ok with zithromax - Keflex [Cephalexin] OK to give zosyn per 06-28-06 - Latex Rash rash, breaks out everywhere, n/v , feels weak Can still eat food that is considered for latex allergies No allergic to latex foods per patient isaak 05/07/11 - Tetracycline hives REVIEW OF SYSTEMS General: No weight loss, malaise or fevers. 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 No neurological symptoms or problems. Respiratory: No history of current cough or dyspnea, or pneumonia in the past 6 weeks. No history of respiratory/pulmonary symptoms or problems. Cardiovascular: Hypertension requiring meds, No CAD/CHF/VTE GI: per HPI : No history of UTI in past 6 weeks. No history of renal failure. Not currently on or requiring dialysis. 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 No history of hematological symptoms or problems. Oncology: distant uterine + cx cancer, s/p OSMAR + BSO in 2003 Psych: Depression, helped by med s Skin: Negative for lesions, rash, and itching. PHYSICAL EXAM VITALS: BP 113/65 Pulse 75 Temp (Src) 98.4 (Oral) Ht 5' 10 (1.78m) Wt 228 lb (103.4kg) SpO2 98% BMI 32.71 kg/(m2). General: Alert and oriented Skin: Normal color, no rash, no lesions. HEENT: EOM, pupils equal, round and reactive. Cardiovascular: Normal S1 AND S2, no rubs, murmurs or gallops. No JVD. Pulse regular. Lungs: Normal breath sounds, no wheezes or crackles. Abdomen: Soft, + tender LLQ, no rigidity. Extremities: No deformity,+1 LE edema , no joint swelling or clubbing. Neurological: Normal cognition and motor skills. Pulses: Carotid and radial pulses normal +2. ASSESSMENT Ms. Goyal is a 57 year old female referred to me for preoperative evaluation. Patient has the following medical comorbidities which might affect the perioperative course: - Type II Diabetes with peripheral neuropathy. Patient is on insulin. - Hypertension, well controlled. - Patient is overweight related to excessive caloric intake. Body mass index is 32.71 kg/m?. - GERD controlled - SIBO in the past + currently has dumping syndrome which is chronic Patient's RCRI (Revised Cardiac Risk Index: CAD/CHF/Stroke or TIA/SCr>2/DM on Insulin/High Risk Surgery) score is 1 and is at low risk for major adverse cardiac events in the perioperative period. Diagnostic tests reviewed for today's visit: PENDING + ECHO 08/2017: - Exam indication: SVT - The left ventricle is normal in size. There is no left ventricular hypertrophy. Left ventricular systolic function is normal. EF = 66 ? 5% (2D biplane) Normal left ventricular diastolic function. - The right ventricle is normal in size. Right ventricular systolic function is normal. - There are no significant valvular abnormalities. - Estimated right ventricular systolic pressure is 25 mmHg consistent with normal pulmonary artery pressures. Estimated right atrial pressure is 5 mmHg. - Exam was compared with the prior echocardiographic exam performed on 02/10/2013 There is no significant change. ? TAMINE STRESS ECHO 2012: Stress protocol consisted of dobutamine up to 40 mcg/kg/min with hand director of surgery and atropine. Test was terminated due to completed protocol. Rest HR 67 bpm. Peak HR 146 bpm. (86 % MPHR) Rest BP 133 mmHg/69 mmHg. Peak BP 167 mmHg/71 mmHg. Patient experienced no symptoms during stress. Rest ECG normal. Stress ECG normal ST segment response and premature ventricular contraction. Stress complications: none. The left ventricular cavity size is decreased with stress. + CONCLUSIONS: - Exam indication: Preop evaluation for noncardiac surgery with low/intermediate clinical risk - The dobutamine stress echo was negative for ischemia at 86 % of MPHR. - The left ventricle is normal in size. Left ventricular systolic function is normal. EF = 65 ? 5% (2D biplane) - The right ventricle is normal in size. Right ventricular systolic function is normal. - Normal valvular function on 2D and Doppler parameters. Aortic valve morphology not visualized. - No prior echocardiographic exam available for comparison.? /RECOMMENDATIONS CARDIAC: Patient is at optimal cardiac condition for scheduled surgery / procedure. PULMONARY: Patient is at optimal Pulmonary status for scheduled surgery / procedure. Suggest the following in the post-operative period: Aggressive bronchopulmonary hygiene and Early ambulation ENDOCRINE: DIABETES: - Initiate [facility] Guidelines for perioperative diabetes management. Check finger stick glucose on the morning of surgery. - Patient has been instructed on Preoperative DM medication management. - see below Needs post op glucose monitoring + sliding scale Insulin for coverage. Add Lantus Insulin 10 units qAM this admission Resume pre admission Insulin regimen at time of DC VASCULAR/ANTICOAGULATION: VTE prophylaxis as deemed appropriate by the surgical service. Patient is optimally prepared for surgery pending labs and EKG Patient Instructions: As per patient instructions section. I have discussed the above recommendations with the patient in detail, in hai and lay terms, and provided a written summary of instructions as needed. We have discussed that no surgery is without risk, but that the goal of preoperative assessment is to optimize that risk, and that was clearly understood by the patient. I have given ample opportunity for the patient to ask questions, and answered all questions to their stated satisfaction. SIGNATURE: Satya King MD PATIENT NAME: Adri Goyal DATE: April 29, 2018 TIME: 10:38 AM Addendum 04/29 PM EKG: NSR, normal axis, no acute changes + Labs: Component Latest Ref Rng AND Units 04/29/2018 WBC 3.70 - 11.00 k/uL 6.80 RBC 3.90 - 5.20 m/uL 4.37 Hemoglobin 11.5 - 15.5 g/dL 12.5 Hematocrit 36.0 - 46.0 % 38.7 MCV 80.0 - 100.0 fL 88.6 MCH 26.0 - 34.0 pG 28.6 MCHC 30.5 - 36.0 g/dL 32.3 RDW-CV 11.5 - 15.0 % 14.3 Platelet Count 150 - 400 k/uL 249 MPV 9.0 - 12.7 fL 9.9 Neut% % 72.0 Abs Neut (ANC) 1.45 - 7.50 k/uL 4.88 Lymph% % 20.7 Abs Lymph 1.00 - 4.00 k/uL 1.41 [place]% % 4.9 Abs [place] <0.87 k/uL 0.33 Eosin% % 2.1 Abs Eosin <0.46 k/uL 0.14 Baso% % 0.3 Abs Baso <0.11 k/uL <0.03 Nucleated Reds 0 /100 WBC 0.0 Absolute nRBC <0.01 k/uL <0.01 Diff Type Auto Diff Protein, Total 6.3 - 8.0 g/dL 7.1 Albumin 3.9 - 4.9 g/dL 4.6 Calcium 8.5 - 10.2 mg/dL 9.0 Bilirubin, Total 0.2 - 1.3 mg/dL 0.9 Alkaline Phosphatase 34 - 123 U/L 82 AST 13 - 35 U/L 16 Glucose 74 - 99 mg/dL 135 (H) BUN 7 - 21 mg/dL 15 Creatinine 0.58 - 0.96 mg/dL 0.90 Sodium 136 - 144 mmol/L 142 Potassium 3.7 - 5.1 mmol/L 4.7 Chloride 97 - 105 mmol/L 104 CO2 22 - 30 mmol/L 24 Anion Gap 9 - 18 mmol/L 14 ALT 7 - 38 U/L 11 eGFR- >60 eGFR-All Other Races . >60 Hemoglobin A1C 4.3 - 5.6 % 5.9 (H) Estimated Average Glucose mg/dL 123 PT Sec 9.7 - 13.0 sec 9.9 PT INR 0.9 - 1.3 0.9 APTT 23.0 - 32.4 sec 24.5 + UA + WBC + nitrites, as of 05/02 Urine CANDS still NEG OK to proceed with surgery. MD Maru Ho LPN 05/02/2018 7:18 AM Signed Adri Goyal is a 57 year old female here today for visit in [facility] Referring Surgeon: Dr. Jones Date of Surgery: 05/21/2018 Planned Surgery/Procedure: HERNIORRHAPHY INCISIONAL Allergies have been reviewed and verified. They include the following: Bactrim [Sulfamethoxazole]; Cipro I.V. [Ciprofloxacin]; Dimetapp [Pseudoephedrine-Dm]; Erythromycin; Keflex [Cephalexin]; Latex; Tetracycline Social History Substance Use Topics - Smoking status: Never Smoker - Smokeless tobacco: Never Used - Alcohol use No Medications reviewed and updated: Yes Maru King MD 04/29/2018 11:08 AM Addendum [facility] Patient Instructions for Surgery FOOD INSTRUCTIONS: NO solid food or non-clear liquids for 8 hours prior to the arrival time for your surgery. Unless you are instructed otherwise, you are allowed to drink up to 12 ounces of clear liquids (e.g. water, black tea/coffee, fruit juice without pulp, Yvonne Jesusita, etc.) up until 2 hours prior to the arrival time for surgery. MEDICATION INSTRUCTIONS: Prior to Surgery: Do not take the following medications for 7 days prior to surgery: Last dose May 13 - any NSAID's (e.g. Motrin, Aleve, Arthrotec, Naproxen,etc) - any herbal preparations - Aspirin or aspirin containing products + Do not take any Vitamin E / multivitamins for 10 days before surgery: Last dose May 10 + Stop Mobic 5 days prior to surgery, Last dose May 16 You are allowed to take Tylenol if needed until the day of surgery. On the night before surgery, decrease Basaglar to Insulin to 6 units (instead of 10 units) MEDICATION INSTRUCTIONS: Day/Morning of Surgery: The following medications should be taken with sips of water: see below NONE Tylenol if needed If you have any questions or concerns regarding today's visit please do not hesitate to contact the [facility] at [phone] or [phone], ext [phone]. Signature: Satya King MD Date: April 29, 2018 Previous Version Satya King MD 05/02/2018 2:18 PM Signed Addended by: SATYA KING MD on: 05/02/2018 02:18 PM Modules accepted: Orders Progress Notes ([facility]IN): Magy Hatfield RN 04/29/2018 2:31 PM Addendum ANESTHESIA PRE-OPERATIVE ASSESSMENT (PACE) SERVICE DATE: 04/29/2018 SERVICE TIME: 2 pm ASSESSMENT AND PLAN: Adri Goyal is a 57 year old female scheduled for repair of large ventral hernia with mesh per Surgery Request Case in MAIN on 05/21/18. PMH: 1. recurrent symptomatic ventral hernia s/p multiple abdominal surgeries for bowel resection with reconstructed abdominal wall after necrotizing fasciitis. + has dumping syndrome which is chronic + 4 to 6 times per day 2. HTN takes cozaar and toprol xl 3. DM 2. Pt has peripheral neuropathy, takes insulin 4. GERD takes prilosec 5.anxiety/depression- klonopin, seroquel and cymbalta 6. PONV 7. Discussed TAP block with pt [facility]: 3 FC: I METS: Walk a block or two on level ground (2.75 METs) Do moderate work around the house such as vacuuming, sweeping floors, or carrying in groceries (3.50 METs) Climb a flight of stairs or walk up a hill (5.50 METs) Patient denies any chest pain or undue shortness of breath with the above physical activity. Patient WILL accept blood products. BLOOD WORK/PRODUCTS ORDERED: Type and Screen , Con ABO HISTORY OF CHRONIC PAIN: No PAIN MANAGEMENT OPTIONS: Routine/PRN IV and Final pain management plan will be discussed on the day of surgery. ANESTHETIC OPTIONS: General and Final anesthesia management options will be discussed on day of surgery. PRE-OP PLAN ORDERED: Aspiration prophylaxis, Diabetes orders, Day of surgery Labs: accucheck Patient Instructed: ? No solid food or non-clear liquids after midnight. Clear liquids allowed until two hours before scheduled arrival. Vital Signs: BP 113/65 Pulse 75 Temp 36.9 ?C (98.4 ?F) Ht 178 cm (5' 10.08) Wt 103 kg (227 lb 1.2 oz) SpO2 98% BMI 32.51 kg/m? BMI 32.51 kg/(m2) Vital signs completed by: IMPACT Weight acquired: per HANDP. Height acquired: per HANDP Airway Exam: MOUTH OPENING/TMJ: Full jaw ROM MICROGNATHIA/OVERBITE: No MALLAMPATI SCORE is CLASS II UPPER LIP BITE TEST: Class II - Lower incisors can bite the upper lip below the johnson line DENTITION: Edentulous/dentures uppers THYROMENTAL DIST: WNL SHORT NECK: Yes - short/thick secondary to obesity. NECK CIRCUMFERENCE >40 cm: Neck Circumference measured at 44 cm NECK FLEX: Full ROM NECK EXTENSION: Full ROM AIRWAY HISTORY: No history of difficult intubation ARKS AIRWAY DETAIL: Date of ARKS: 10/17/15 Airway Adjunct Oral Size: N/A Mask:Yes. Mask Size: 4 Easy Mask:Yes Intubation: Asleep Airway: ETT Oral Size :7 mm #Trials: 1. Stylette: No. Cricoid pressure:No Intubating Devices: Quiñonez Size: 2. Teaching Purpose: No Grade: I Difficulty Comments: N/A DATA: EKG READING: Unconfirmed - Procedure Date : Apr 29 2018 12:27:19 Edit Date : Apr 29 2018 12:28:03 ? Diagnosis:NORMAL SINUS RHYTHM NORMAL ECG ? OTHER TESTS: ECHO 08/2017: - Exam indication: SVT - The left ventricle is normal in size. There is no left ventricular hypertrophy. Left ventricular systolic function is normal. EF = 66 ? 5% (2D biplane) Normal left ventricular diastolic function. - The right ventricle is normal in size. Right ventricular systolic function is normal. - There are no significant valvular abnormalities. - Estimated right ventricular systolic pressure is 25 mmHg consistent with normal pulmonary artery pressures. Estimated right atrial pressure is 5 mmHg. - Exam was compared with the prior echocardiographic exam performed on 02/10/2013 There is no significant change. ? ? DOBUTAMINE STRESS ECHO 2012 CONCLUSIONS: - Exam indication: Preop evaluation for noncardiac surgery with low/intermediate clinical risk - The dobutamine stress echo was negative for ischemia at 86 % of MPHR. - The left ventricle is normal in size. Left ventricular systolic function is normal. EF = 65 ? 5% (2D biplane) - The right ventricle is normal in size. Right ventricular systolic function is normal. - Normal valvular function on 2D and Doppler parameters. Aortic valve morphology not visualized. - No prior echocardiographic exam available for comparison.? Lab Value Units Date High Low HB 12.5 g/dL 04/29/2018 15.5 11.5 HCT 38.7 % 04/29/2018 46.0 36.0 WBC 6.80 k/uL 04/29/2018 11.00 3.70 PLT 249 k/uL 04/29/2018 400 150 NA 142 mmol/L 04/29/2018 144 136 K 4.7 mmol/L 04/29/2018 5.1 3.7 GLUC 135 mg/dL 04/29/2018 99 74 BUN 15 mg/dL 04/29/2018 21 7 CREAT 0.90 mg/dL 04/29/2018 0.96 0.58 PTSEC 9.9 sec 04/29/2018 13.0 9.7 INR 0.9 no uni* 04/29/2018 1.3 0.9 APTT 24.5 sec 04/29/2018 32.4 23.0 ALT 11 U/L 04/29/2018 38 7 AST 16 U/L 04/29/2018 35 13 TBILI 0.9 mg/dL 04/29/2018 1.3 0.2 TSH No results within date range. Lab Value Units Date High Low HCGQT No results within date range. UHCG No results within date range. HCG, BODY* No results within date range. Lab Value Units Date High Low ABORHD O POSI* no uni* 04/29/2018 ABSCREEN POS no uni* 04/29/2018 Ref Range AND Units 6d ago (04/29/18) 2yr ago (10/13/15) 2yr ago (10/07/15) 2yr ago (09/01/15) 3yr ago (11/12/14) 3yr ago (11/09/14) 3yr ago (10/28/14) ABO/RH(D) O POSITIVE O POSITIVE O POSITIVE O POSITIVE O POSITIVE O POSITIVE O POSITIVE Antibody Screen POS POS POS POS POS POS POS Order Type Blood Bank Blood Bank Blood Bank Blood Bank Blood Bank Blood Bank Blood Bank Blood Bank BB Free Text Comment See Physician's... See Physician's Report under Antibody Interpretation ON 2015. Historical Ab Scr Status POSITIVE POSITIVE POSITIVE POSITIVE Resulting Agency [facility] Specimen Collected: 04/29/18 12:10 PM Last Resulted: 05/01/18 12:57 PM : HBA1C: Hemoglobin A1C (%) Date Value 06/26/2017 7.2 03/27/2017 7.9 Hemoglobin A1C (POCT) (%) Date Value 01/21/2018 7.1 10/15/2017 6.7 ) Patient accompanied by self Case Discussed with Dr Esteves OPTIMIZATION STATUS: Patient optimization pending Labs IMPACT EKG IMPACT SIGNATURE: Magy Hatfield RN PATIENT NAME: Adri Goyal DATE: April 29, 2018 TIME: 2:22 PM PAGER/CONTACT #: [email or web address] Addendum (Liz Babb, FERNIE) TANDS results to note. Notified Dr. Jones's midlevel of results. Previous Version PROGRESS Observed: 03/24/2018 Status: COMPLETED Source: [place] 2:53 PM [facility] REPOSITORY HNO ID: [id number] Author: Dalia Jones Service: (none) Author Type: Physician Type: Progress Notes Filed: 03/24/2018 2:54 PM Note Text: Mrs Goyal is here to discuss her surgical options for her ventral hernia. Last time I saw her she did not have her CT scan. She has it today and after reviewing the images she will require on open complex ventral hernia repair with mesh. I discussed the risks, benefits and alternatives with her and she signed consent in the office. INFORMED CONSENT STUDY TITLE: Long-Term Results of Heavy Weight versus Medium Weight Mesh in Ventral Hernia Repair IRB NO.: #[id number] SWITCHBOARD CLERK: Raghavendra Ortiz MD COORDINATOR/Research Nurse/Uppers Edge Burnisher: Leland Knox MD Prior to consent discussion, the patient?s medical record was reviewed for evidence of participation in other clinical research studies. Patient was asked about participation in other studies and states that they are willing to participate. Discussed above research protocol with patient and Dr. Ortiz. The risks, benefits, alternatives, and costs were discussed. The study requirements and follow up procedures were reviewed and the importance of follow up compliance was stressed. All patient questions were addressed and answered. Patient has read and understands the study procedures and requirements. Patient has agreed to proceed with trial participation and consent signed. Copy of the signed consent provided to the patient. IRB# [id number]: Long-Term Results of Heavy Weight versus Medium Weight Mesh in Ventral Hernia Repair PI: Dr. Raghavendra Ortiz INCLUSION CRITERIA Yes No 1. The subject is > 18 years of age [x] [] 2. The patient is presenting for a midline abdominal wall defect [x] [] 3. CDC Wound Class 1 [] [] TBD [x] 4. Ventral hernia repair will be performed on an elective basis as a single-stage surgery in an open fashion [x] [] 5. The patient is a candidate for retromuscular ventral hernia repair [] [] TBD [x] 6. Midline fascial closure will be achieved [] [] TBD [x] 7. The patient's hernia defect measures < 20 cm in width (measured intraoperatively) [] [] TBD [x] 8. The patient is able to tolerate general anesthesia [x] [] 9. The patient is willing and able to give informed consent [x] [] EXCLUSION CRITERIA Yes No 1. The subject is < 18 years of age [] [x] 2. CDC Wound Class 2, 3, or 4 [] [] TBD [x] 3. The patient's ventral hernia is repaired in an emergent fashion [] [x] 4. The patient's hernia must be repaired in a staged fashion [] [x] 5. The patient will undergo a laparoscopic or robotic ventral hernia repair [] [x] 6. Midline fascial closure is unable to be achieved [] [] TBD [x] 7. The patient's ventral hernia measures > 20cm in width (measured intraoperatively) [] [] TBD [x] 8. The patient is [] [] TBD [x] 9. The patient is unable to give informed consent [] [x] CNOV Observed: 03/24/2018 Status: COMPLETED Source: [place] 2:50 PM [facility] REPOSITORY Office Visit (ODETTE) ADRI GOYAL ([id number]) 1960 F TPN Date Time Provider Department 03/24/18 2:50 PM DALIA JONES During your visit today, we recorded the following information about you: Matthew Londono MD 03/24/2018 2:54 PM Signed General Surgery Clinic Note Interval History: 57 year old female presenting with recurrent symptomatic ventral hernia s/p multiple abdominal surgeries for bowel resection with reconstructed abdominal wall after necrotizing fasciitis. She was seen recently by us, but we were not able to make a final decision regarding the hernia due to lack of imaging. She is now here for follow up with the CT scan. CT scan showing multiple ventral defects with largest in the lower abdominal wall above public symphysis measuring 5.2 cm containing large and small bowel. She has continued to have pain and difficulty walking since her last clinic visit. No obstructive symptoms in the past week but has had nausea occasionally in the past. Nonsmoker, occasional EtOH. BMI 32. Physical Exam: There were no vitals taken for this visit. General: awake, alert, no acute distress Respiratory: non-labored breathing, no shortness of breath Abdomen: large hernia in lower mid abdomen, non reducible, nontender on palpation. No obvious acute skin changes. Multiple abdominal scars from prior abdominal surgery. Extremities: no cyanosis or edema Neuro: grossly nonfocal Assessment/Plan: 57F w/ symptomatic ventral hernia s/p multiple abdominal surgeries w/ reconstructed abdominal wall. Multiple ventral hernia defects noted on CT scan. - Open ventral hernia repair w/ TAR and mesh placement - Consent obtained Patient seen and discussed with Dr. Jones. Matthew Londono MD General Surgery, PGY-1 Pager: [phone] DALIA JONES MD 03/24/2018 2:54 PM Signed Mrs Goyal is here to discuss her surgical options for her ventral hernia. Last time I saw her she did not have her CT scan. She has it today and after reviewing the images she will require on open complex ventral hernia repair with mesh. I discussed the risks, benefits and alternatives with her and she signed consent in the office. INFORMED CONSENT STUDY TITLE: Long-Term Results of Heavy Weight versus Medium Weight Mesh in Ventral Hernia Repair IRB NO.: #[id number] SWITCHBOARD CLERK: Raghavendra Ortiz MD COORDINATOR/Research Nurse/Uppers Edge Burnisher: Leland Knox MD Prior to consent discussion, the patient?s medical record was reviewed for evidence of participation in other clinical research studies. Patient was asked about participation in other studies and states that they are willing to participate. Discussed above research protocol with patient and Dr. Ortiz. The risks, benefits, alternatives, and costs were discussed. The study requirements and follow up procedures were reviewed and the importance of follow up compliance was stressed. All patient questions were addressed and answered. Patient has read and understands the study procedures and requirements. Patient has agreed to proceed with trial participation and consent signed. Copy of the signed consent provided to the patient. IRB# [id number]: Long-Term Results of Heavy Weight versus Medium Weight Mesh in Ventral Hernia Repair PI: Dr. Raghavendra Ortiz INCLUSION CRITERIA Yes No 1. The subject is > 18 years of age [x] [] 2. The patient is presenting for a midline abdominal wall defect [x] [] 3. CDC Wound Class 1 [] [] TBD [x] 4. Ventral hernia repair will be performed on an elective basis as a single-stage surgery in an open fashion [x] [] 5. The patient is a candidate for retromuscular ventral hernia repair [] [] TBD [x] 6. Midline fascial closure will be achieved [] [] TBD [x] 7. The patient's hernia defect measures < 20 cm in width (measured intraoperatively) [] [] TBD [x] 8. The patient is able to tolerate general anesthesia [x] [] 9. The patient is willing and able to give informed consent [x] [] EXCLUSION CRITERIA Yes No 1. The subject is < 18 years of age [] [x] 2. CDC Wound Class 2, 3, or 4 [] [] TBD [x] 3. The patient's ventral hernia is repaired in an emergent fashion [] [x] 4. The patient's hernia must be repaired in a staged fashion [] [x] 5. The patient will undergo a laparoscopic or robotic ventral hernia repair [] [x] 6. Midline fascial closure is unable to be achieved [] [] TBD [x] 7. The patient's ventral hernia measures > 20cm in width (measured intraoperatively) [] [] TBD [x] 8. The patient is [] [] TBD [x] 9. The patient is unable to give informed consent [] [x] Referring Provider: FILIBERTO MULLEN [[id number]] Allergies As of Date: 03/24/2018 Noted Allergy Reaction BACTRIM (SULFAMETHOXAZOLE) 08/13/2011 14 - Other: See Comments Comments: Cardiac issues, CIPRO IV only CIPRO I.V. (CIPROFLOXACIN) 06/28/2006 4 - Hives 12 - Shortness of Breath DIMETAPP (PSEUDOEPHEDRINE-DM) 12/04/2005 11 - Vomiting Comments: violently ill when overdosed on it as child ERYTHROMYCIN 11/29/2005 Comments: hives ok with zithromax KEFLEX (CEPHALEXIN) 11/29/2005 Comments: OK to give zosyn per MD -05-23 LATEX 11/29/2005 2 - Rash Comments: rash, breaks out everywhere, n/v , feels weak Can still eat food that is considered for latex allergies No allergic to latex foods per patient isaak 05/07/11 TETRACYCLINE 02/05/2006 Comments: hives Date Reviewed: 03/24/2018 Reviewed by: Dalia Jones - Fully Assessed Primary Visit Diagnosis:Recurrent ventral hernia [K43.2] Prescriptions as of 03/24/2018 Sig: MELOXICAM 15 MG TABLET Take 1 tablet by mouth once d* CLONAZEPAM 1 MG TABLET Take 1 tablet by mouth daily * ZOLPIDEM 10 MG TABLET Take 1 tablet by mouth at bed* QUETIAPINE 100 MG TABLET Take 1 tablet by mouth twice * INSULIN ASPART U-100 100 UNI* 15 units before meals + 2 u p* INSULIN GLARGINE (U-100) 100 * 20 units sq twice daily DULOXETINE 60 MG CAPSULE,JAG* Take 1 capsule by mouth daily* LOSARTAN 50 MG TABLET Take 1 tablet by mouth once d* POTASSIUM CHLORIDE ER 10 MEQ * Take 1 tablet by mouth twice * GABAPENTIN 100 MG CAPSULE 300 mg daily at bedtime ASPIRIN 81 MG TABLET,DELAYED * TAKE ONE TABLET BY MOUTH DAILY METOPROLOL SUCCINATE ER 25 MG* TAKE ONE TABLET BY MOUTH DAILY FLUTICASONE 50 MCG/ACTUATION * Use 2 Sprays in each nostril * OMEPRAZOLE 20 MG CAPSULE,JAG* Take 1 capsule by mouth twice* DIAPER,BRIEF,ADULT,DISPOSABLE 1 Each as needed. Dx: N36.0,* BLOOD SUGAR DIAGNOSTIC STRIPS TEST BLOOD SUGAR 6 TO 8 TIMES* LANCETS Use as instructed to test blo* BLOOD-GLUCOSE METER KIT As directed PEN NEEDLE, DIABETIC 33 GAUGE* 1 Each as directed. Use with * AMLODIPINE 5 MG TABLET TAKE TWO TABLETS BY MOUTH WILIAN* LANCETS REGULAR MISC 1 Each as directed. Use 6 x d* CHOLECALCIFEROL (VITAMIN D3) * Take 1 capsule by mouth once * MULTIVITAMIN WITH CALCIUM AND* Take 1 tablet by mouth twice * BLOOD SUGAR DIAGNOSTIC, DISC * 1 Each as directed. 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 Essential Hypertension, Benign [I10] INVALID FOR* More... Hyperpotassemia [E87.5] INVALID FOR*04/15/2017 Abdominal pain, left lower quadrant [R10.32] INVALID FOR*04/15/2017 Abdominal pain, right lower quadrant [R10.31] INVALID FOR*04/15/2017 Abdominal Pain, Generalized [R10.84] INVALID FOR* HTN (hypertension) [I10] 04/15/2017 More... GERD (Gastroesophageal Reflux Disease) [K21.9] More... Irritable Bowel Syndrome [K58.9] RSD lower limb [G90.529] 04/15/2017 Open wound of abdominal wall, anterior, complic* 04/15/2017 Depressive disorder, not elsewhere classified [* More... Morbid obesity (HCC) [E66.01] INVALID FOR*12/25/2016 Dietary surveillance and counseling [Z71.3] INVALID FOR*04/15/2017 Gastric bypass status for obesity [Z98.84] INVALID FOR*04/15/2017 More... Nausea AND vomiting [R11.2] INVALID FOR*04/15/2017 Other and unspecified postsurgical nonabsorptio*INVALID FOR*04/15/2017 Osteoporosis [M81.0] INVALID FOR*08/20/2013 On total parenteral nutrition (TPN) [Z78.9] INVALID FOR*04/15/2017 Malabsorption [K90.9] INVALID FOR* Fracture [T14.8XXA] INVALID FOR*04/15/2017 Hernia of abdominal wall [K43.9] INVALID FOR* H/O hyperglycemia [Z86.39] INVALID FOR*04/15/2017 Diarrhea [R19.7] INVALID FOR* Insomnia [G47.00] INVALID FOR* More... Diabetic neuropathy, painful (HCC) [E11.40] INVALID FOR* More... DM (diabetes mellitus) (HCC) [E11.9] INVALID FOR* More... Unspecified intestinal malabsorption [K90.9] INVALID FOR* More... Osteoporosis [M81.0] INVALID FOR* More... Vitamin D deficiency [E55.9] INVALID FOR* More... Post-operative state [Z98.890] INVALID FOR*04/15/2017 Obesity (BMI 30.0-34.9) [E66.9] INVALID FOR* More... Chronic pain in right shoulder [M25.511, G89.29]INVALID FOR* More... Impingement syndrome of right shoulder [M75.41] INVALID FOR* More... Migraines [G43.909] INVALID FOR* DDD (degenerative disc disease), lumbar [M51.36]INVALID FOR* Acute pain of right shoulder [M25.511] INVALID FOR* Encounter Status:Closed by DALIA JONES MD on 03/24/18 PROGRESS Observed: 03/24/2018 Status: COMPLETED Source: [place] 2:47 PM [facility] RE[facility] HNO ID: [id number] Author: Matthew Londono Service: (none) Author Type: Resident Type: Progress Notes Filed: 03/24/2018 2:54 PM Note Text: General Surgery Clinic Note Interval History: 57 year old female presenting with recurrent symptomatic ventral hernia s/p multiple abdominal surgeries for bowel resection with reconstructed abdominal wall after necrotizing fasciitis. She was seen recently by us, but we were not able to make a final decision regarding the hernia due to lack of imaging. She is now here for follow up with the CT scan. CT scan showing multiple ventral defects with largest in the lower abdominal wall above public symphysis measuring 5.2 cm containing large and small bowel. She has continued to have pain and difficulty walking since her last clinic visit. No obstructive symptoms in the past week but has had nausea occasionally in the past. Nonsmoker, occasional EtOH. BMI 32. Physical Exam: There were no vitals taken for this visit. General: awake, alert, no acute distress Respiratory: non-labored breathing, no shortness of breath Abdomen: large hernia in lower mid abdomen, non reducible, nontender on palpation. No obvious acute skin changes. Multiple abdominal scars from prior abdominal surgery. Extremities: no cyanosis or edema Neuro: grossly nonfocal Assessment/Plan: 57F w/ symptomatic ventral hernia s/p multiple abdominal surgeries w/ reconstructed abdominal wall. Multiple ventral hernia defects noted on CT scan. - Open ventral hernia repair w/ TAR and mesh placement - Consent obtained Patient seen and discussed with Dr. Jones. Matthew Londono MD General Surgery, PGY-1 Pager: [phone] PROGRESS Observed: 03/18/2018 Status: COMPLETED Source: [place] 12:39 PM [facility] REPOSITORY [facility] ID: [id number] Author: Dalia Jones Service: (none) Author Type: Physician Type: Progress Notes Filed: 03/18/2018 12:44 PM Note Text: Consultation requested by Dr. Mullen for an opinion regarding ventral hernia. My final recommendations will be communicated back to the requesting physician by way of shared medical record or letter via [place] mail I have seen and evaluated the patient and discussed the case with the resident physician. I agree with the assessment and plan as documented in the resident?s note. Adri Goyal is a 57 year old female who is here for evaluation of a recurrent ventral hernia. Her past surgical history includes multiple abdominal operations for bowel resection and reconstruction of abdominal wall after necrotizing fasciitis. She reports increased pain over the past 2 years since recurrence of the hernia and has had trouble walking due to hernia. On exam, she has a large hernia. Unfortunately she does not have her CT scan with her today so it is difficult to determine what she will need. Most likely this fredrick be an open repair but I would like to review her Ct scan before committing to a surgical approach. Once I review her CT scan we can discuss this further. HISTORY PHYSICAL Observed: 03/13/2018 Status: COMPLETED Source: [place] 2:31 PM [facility] REPOSITORY HNO ID: [id number] Author: Matthew Londono Service: (none) Author Type: Resident Type: HANDP Filed: 03/18/2018 12:44 PM Note Text: HISTORY AND PHYSICAL EXAMINATION PLEASE DO NOT REMOVE FROM THE CHART OR MODIFY PRINTED COPY Patient Name: Adri Goyal PRIMARY CARE PHYSICIAN: LEON JIMENEZ MD CHIEF COMPLAINT: Recurrent ventral hernia HPI: This is a 57 year old female w/ PMH multiple abdominal operations for bowel resection and reconstruction of abdominal wall after necrotizing fasciitis who presents today for recurrently ventral hernia in lower abdomen. She reports increased pain over the past 2 years since recurrence of the hernia and has had trouble walking due to hernia. More recently, she has developed N/V, however she has still been able to eat and has had bowel movements regularly. Denies CP, SOB, bloating, and dysuria. Never smoker, no EtOH abuse. BMI 33. PAST MEDICAL HISTORY: PAST MEDICAL HISTORY Diagnosis Date - Abdominal pain, generalized CHRONIC PAIN MANAGEMENT - Bacterial overgrowth syndrome - Bowel disease - Depressive disorder, not elsewhere classified on cymbalta - Diabetes mellitus (HCC) 1980s on insulin since 1982 - Fracture - GERD (gastroesophageal reflux disease) resolved since 2004 - HTN (hypertension) resolved since 2004 - Incisional hernia without mention of obstruction or gangrene - Irritable bowel syndrome - Necrotizing fasciitis (HCC) - Obesity, unspecified 05-23-10 STATED BMI 35.91 Ht: 70 Wt: 250 lbs - Open wound of abdominal wall, anterior, complicated 1 - PMH - PAST MEDICAL HISTORY OF irritable bowel syndrome, necrotizing fasciitis, hypertension, diabetes, GERD, gastritis, - PMH - PAST MEDICAL HISTORY OF 09/2009 left foot break - RSD lower limb seen by pain management PAST SURGICAL HISTORY: PAST SURGICAL HISTORY Procedure Laterality Date - ARTHROS SHLDR DX W/WO SYNV BX Right 05/03/2017 Right shoulder arthroscopy, glenoid chondroplasty - FEEDING TUBE-SPECIFY J-tube - GASTRIC BYPASS, LION-EN-Y 04/27/11 - HYSTERECTOMY HX 2004 - PAST SURGICAL HISTORY OF colostomy, partial colectomy,OSMAR/BSO, right hand tendon rplaced, fatty tumor excision back and thigh,ulnar nreve surgery bilaterally, tonsillectomy - PAST SURGICAL HISTORY OF 2005 repair of fistulas - PAST SURGICAL HISTORY OF 2006 translupe colostomy - PAST SURGICAL HISTORY OF 2004 debredement due to necratizing fascitis - PAST SURGICAL HISTORY OF 2005 hysterectomy - PAST SURGICAL HISTORY OF STATES > 113 ABDOMINAL SURGERIES - PAST SURGICAL HISTORY OF resversal of colostomy - PAST SURGICAL HISTORY OF 10/2015 hernia repair/abdominal muscle repair - REPAIR COMPL ROTATOR CUFF AVULSN,CHR Right 05/03/2017 Glenoid chondroplasty, labtral debridement, SAD - TONSILLECTOMY HX 1977 FAMILY HISTORY: FAMILY HISTORY Problem Relation Age of Onset - other (Bipolar) Mother - Diabetes Father Type 2 - Heart Father hypertension - Colon Cancer Paternal Grandfather dx'd age 61? - Hypertension Paternal Grandfather - Diabetes Paternal Grandfather Type 2 - Heart Daughter - Breast Cancer Paternal Aunt - other (Hypoplastic Left heart) Son SOCIAL HISTORY: Social History Substance Use Topics - Smoking status: Never Smoker - Smokeless tobacco: Never Used - Alcohol use No MEDICATIONS: Prior to Admission Medications: meloxicam (MOBIC) 15 mg tablet Take 1 tablet by mouth once daily. clonazePAM (KLONOPIN) 1 mg tablet Take 1 tablet by mouth daily at bedtime for 30 days. zolpidem (AMBIEN) 10 mg tab Take 1 tablet by mouth at bedtime as needed for up to 30 days. QUEtiapine (SEROQUEL) 100 mg tablet Take 1 tablet by mouth twice daily. insulin aspart U-100 (NOVOLOG) 100 unit/mL inpn 15 units before meals + 2 u per 50 >200 TDD 75 units insulin glargine (BASAGLAR KWIKPEN U-100 INSULIN) 100 unit/mL (3 mL) inpn 20 units sq twice daily DULoxetine (CYMBALTA) 60 mg capsule Take 1 capsule by mouth daily at bedtime. losartan (COZAAR) 50 mg tablet Take 1 tablet by mouth once daily. potassium chloride (K-TAB) 10 mEq tablet Take 1 tablet by mouth twice daily. gabapentin (NEURONTIN) 100 mg capsule 300 mg daily at bedtime aspirin, enteric coated (ASPIRIN, ENTERIC COATED) 81 mg EC tablet TAKE ONE TABLET BY MOUTH DAILY metoprolol succinate ER (TOPROL XL) 25 mg 24 hr tablet TAKE ONE TABLET BY MOUTH DAILY fluticasone (FLONASE) 50 mcg/actuation nasal spray Use 2 Sprays in each nostril once daily. omeprazole (PRILOSEC) 20 mg capsule Take 1 capsule by mouth twice daily. Diaper,Brief, Adult,Disposable (PREVAIL ADJUST UNDERWEAR SM- ) misc 1 Each as needed. Dx: N36.0, K58.9 blood sugar diagnostic (ONETOUCH ULTRA TEST) test strip TEST BLOOD SUGAR 6 TO 8 TIMES DAILY Dx: E11.9 Insulin:yes Lancets lancets Use as instructed to test blood sugars 8 times daily E11.9 Blood-Glucose Meter (Budding BiologistTOUCH ULTRA2) monitoring kit As directed pen needle, diabetic 33 gauge x 5/32 ndle 1 Each as directed. Use with injections 4x daily E11.9 amLODIPine (NORVASC) 5 mg tablet TAKE TWO TABLETS BY MOUTH DAILY LANCETS REGULAR MISC 1 Each as directed. Use 6 x daily cholecalciferol, Vitamin D3, (VITAMIN D3) 50,000 unit cap capsule Take 1 capsule by mouth once each week. Take with your largest meal of the day Multivits,CalciumAND Minerals-FA 267 mcg tab Take 1 tablet by mouth twice daily. Centrum Adult Chewables MVI with minerals is preferred; must be chewable Blood Sugar Diagnostic, Disc strp 1 Each as directed. CHECK BLOOD GLUCOSE EIGHT TIMES PER DAY/ Current hospital medications: denosumab 60 mg injection (PROLIA) 60 mg SUBCUTANEOUS Q 6 MONTH ALLERGIES: ALLERGIES Allergen Reactions - Bactrim [Sulfametho* Other: See Comments Cardiac issues, CIPRO IV only - Cipro I.V. [Ciprofl* Hives, Shortness of Breath - Dimetapp [Pseudoeph* Vomiting violently ill when overdosed on it as child - Erythromycin hives ok with zithromax - Keflex [Cephalexin] OK to give zosyn per MD 06-28-06 - Latex Rash rash, breaks out everywhere, n/v , feels weak Can still eat food that is considered for latex allergies No allergic to latex foods per patient isaak 05/07/11 - Tetracycline hives COMPLETE REVIEW OF SYSTEMS: GENERAL: Negative for malaise, significant weight loss and fever RESPIRATORY: Negative for cough, wheezing and shortness of breath CARDIOVASCULAR: Negative for chest pain, leg swelling and palpitations GI: pain at hernia site, N/V All other systems negative. PHYSICAL EXAM: BP 126/67 (BP Site: Right Arm, BP Position: Sitting, BP Cuff Size: Regular Adult) Pulse 85 Temp 36.3 ?C (97.3 ?F) (Temporal Artery) Resp 16 Ht 177.8 cm (5' 10) Wt 105.7 kg (233 lb) BMI 33.43 kg/m? General Appearance: Well appearing, alert, in no acute distress, well-hydrated, well nourished. Respiratory: Lungs clear to auscultation. No wheezing, rhonchi, rales Heart: RRR without murmur, gallop, or rubs. No ectopy Abdomen: large hernia in lower mid abdomen, non reducible, nontender on palpation. No obvious acute skin changes. Multiple abdominal scars from prior abdominal surgery. DATA: Radiology: none Laboratory:No new labs ASSESSMENT AND PLAN: 57 year old female presenting with recurrent ventral hernia s/p multiple abdominal surgeries with reconstructed abdominal wall. Not able to obtain most recent CT imaging for visualization of abdomen and hernia. - Will likely need operative intervention for ventral hernia repair given symptoms - Will need CT imaging prior to deciding approach for repair The patient understands and agrees with the plan. Matthew Londono MD General Surgery, PGY-1 Pager: [phone] CNOV Observed: 03/13/2018 Status: COMPLETED Source: [place] 1:30 PM [facility] REPOSITORY Office Visit (ODETTE) ADRI GOYAL ([id number]) 1960 F TPN Date Time Provider Department 03/13/18 1:30 PM DALIA JONES During your visit today, we recorded the following information about you: Temperature Pulse Respiration Blood pressure 97.3 degrees 85/minute 16/minute 126/67 Weight Height 105.7 kg 1.778 m Diallo Crowell 03/13/2018 1:58 PM Signed What is the reason for your visit today? Consult Who is your referring physician? Dr. Mullen Are you having poor oral intake? NO Have you had unintentional weight loss of 15 lbs/7 Kg in the last 3-6 months? NO Bowels: regular Wound: clean AND dry Temperature: No Drains: No Matthew Londono MD 03/18/2018 12:44 PM Signed HISTORY AND PHYSICAL EXAMINATION PLEASE DO NOT REMOVE FROM THE CHART OR MODIFY PRINTED COPY Patient Name: Adri Goyal PRIMARY CARE PHYSICIAN: LEON JIMENEZ MD CHIEF COMPLAINT: Recurrent ventral hernia HPI: This is a 57 year old female w/ PMH multiple abdominal operations for bowel resection and reconstruction of abdominal wall after necrotizing fasciitis who presents today for recurrently ventral hernia in lower abdomen. She reports increased pain over the past 2 years since recurrence of the hernia and has had trouble walking due to hernia. More recently, she has developed N/V, however she has still been able to eat and has had bowel movements regularly. Denies CP, SOB, bloating, and dysuria. Never smoker, no EtOH abuse. BMI 33. PAST MEDICAL HISTORY: PAST MEDICAL HISTORY Diagnosis Date - Abdominal pain, generalized CHRONIC PAIN MANAGEMENT - Bacterial overgrowth syndrome - Bowel disease - Depressive disorder, not elsewhere classified on cymbalta - Diabetes mellitus (HCC) 1980s on insulin since 1982 - Fracture - GERD (gastroesophageal reflux disease) resolved since 2004 - HTN (hypertension) resolved since 2004 - Incisional hernia without mention of obstruction or gangrene - Irritable bowel syndrome - Necrotizing fasciitis (HCC) - Obesity, unspecified 05-23-10 STATED BMI 35.91 Ht: 70 Wt: 250 lbs - Open wound of abdominal wall, anterior, complicated 1 - PMH - PAST MEDICAL HISTORY OF irritable bowel syndrome, necrotizing fasciitis, hypertension, diabetes, GERD, gastritis, - PMH - PAST MEDICAL HISTORY OF 09/2009 left foot break - RSD lower limb seen by pain management PAST SURGICAL HISTORY: PAST SURGICAL HISTORY Procedure Laterality Date - ARTHROS SHLDR DX W/WO SYNV BX Right 05/03/2017 Right shoulder arthroscopy, glenoid chondroplasty - FEEDING TUBE-SPECIFY J-tube - GASTRIC BYPASS, LION-EN-Y 04/27/11 - HYSTERECTOMY HX 2003 - PAST SURGICAL HISTORY OF colostomy, partial colectomy,OSMAR/BSO, right hand tendon rplaced, fatty tumor excision back and thigh,ulnar nreve surgery bilaterally, tonsillectomy - PAST SURGICAL HISTORY OF 2006 repair of fistulas - PAST SURGICAL HISTORY OF 2006 translupe colostomy - PAST SURGICAL HISTORY OF 2005 debredement due to necratizing fascitis - PAST SURGICAL HISTORY OF 2005 hysterectomy - PAST SURGICAL HISTORY OF STATES > 113 ABDOMINAL SURGERIES - PAST SURGICAL HISTORY OF resversal of colostomy - PAST SURGICAL HISTORY OF 10/2015 hernia repair/abdominal muscle repair - REPAIR COMPL ROTATOR CUFF AVULSN,CHR Right 05/03/2017 Glenoid chondroplasty, labtral debridement, SAD - TONSILLECTOMY HX 1978 FAMILY HISTORY: FAMILY HISTORY Problem Relation Age of Onset - other (Bipolar) Mother - Diabetes Father Type 2 - Heart Father hypertension - Colon Cancer Paternal Grandfather dx'd age 61? - Hypertension Paternal Grandfather - Diabetes Paternal Grandfather Type 2 - Heart Daughter - Breast Cancer Paternal Aunt - other (Hypoplastic Left heart) Son SOCIAL HISTORY: Social History Substance Use Topics - Smoking status: Never Smoker - Smokeless tobacco: Never Used - Alcohol use No MEDICATIONS: Prior to Admission Medications: meloxicam (MOBIC) 15 mg tablet Take 1 tablet by mouth once daily. clonazePAM (KLONOPIN) 1 mg tablet Take 1 tablet by mouth daily at bedtime for 30 days. zolpidem (AMBIEN) 10 mg tab Take 1 tablet by mouth at bedtime as needed for up to 30 days. QUEtiapine (SEROQUEL) 100 mg tablet Take 1 tablet by mouth twice daily. insulin aspart U-100 (NOVOLOG) 100 unit/mL inpn 15 units before meals + 2 u per 50 >200 TDD 75 units insulin glargine (BASAGLAR KWIKPEN U-100 INSULIN) 100 unit/mL (3 mL) inpn 20 units sq twice daily DULoxetine (CYMBALTA) 60 mg capsule Take 1 capsule by mouth daily at bedtime. losartan (COZAAR) 50 mg tablet Take 1 tablet by mouth once daily. potassium chloride (K-TAB) 10 mEq tablet Take 1 tablet by mouth twice daily. gabapentin (NEURONTIN) 100 mg capsule 300 mg daily at bedtime aspirin, enteric coated (ASPIRIN, ENTERIC COATED) 81 mg EC tablet TAKE ONE TABLET BY MOUTH DAILY metoprolol succinate ER (TOPROL XL) 25 mg 24 hr tablet TAKE ONE TABLET BY MOUTH DAILY fluticasone (FLONASE) 50 mcg/actuation nasal spray Use 2 Sprays in each nostril once daily. omeprazole (PRILOSEC) 20 mg capsule Take 1 capsule by mouth twice daily. Diaper,Brief, Adult,Disposable (PREVAIL ADJUST UNDERWEAR SHABANA LARA) misc 1 Each as needed. Dx: N36.0, K58.9 blood sugar diagnostic (ONETOUCH ULTRA TEST) test strip TEST BLOOD SUGAR 6 TO 8 TIMES DAILY Dx: E11.9 Insulin:yes Lancets lancets Use as instructed to test blood sugars 8 times daily E11.9 Blood-Glucose Meter (ONETOUCH ULTRA2) monitoring kit As directed pen needle, diabetic 33 gauge x 5/32 ndle 1 Each as directed. Use with injections 4x daily E11.9 amLODIPine (NORVASC) 5 mg tablet TAKE TWO TABLETS BY MOUTH DAILY LANCETS REGULAR MISC 1 Each as directed. Use 6 x daily cholecalciferol, Vitamin D3, (VITAMIN D3) 50,000 unit cap capsule Take 1 capsule by mouth once each week. Take with your largest meal of the day Multivits,CalciumAND Minerals-FA 267 mcg tab Take 1 tablet by mouth twice daily. Centrum Adult Chewables MVI with minerals is preferred; must be chewable Blood Sugar Diagnostic, Disc strp 1 Each as directed. CHECK BLOOD GLUCOSE EIGHT TIMES PER DAY/ Current hospital medications: denosumab 60 mg injection (PROLIA) 60 mg SUBCUTANEOUS Q 6 MONTH ALLERGIES: ALLERGIES Allergen Reactions - Bactrim [Sulfametho* Other: See Comments Cardiac issues, CIPRO IV only - Cipro I.V. [Ciprofl* Hives, Shortness of Breath - Dimetapp [Pseudoeph* Vomiting violently ill when overdosed on it as child - Erythromycin hives ok with zithromax - Keflex [Cephalexin] OK to give zosyn per MD 06-28-06 - Latex Rash rash, breaks out everywhere, n/v , feels weak Can still eat food that is considered for latex allergies No allergic to latex foods per patient isaak 05/07/11 - Tetracycline hives COMPLETE REVIEW OF SYSTEMS: GENERAL: Negative for malaise, significant weight loss and fever RESPIRATORY: Negative for cough, wheezing and shortness of breath CARDIOVASCULAR: Negative for chest pain, leg swelling and palpitations GI: pain at hernia site, N/V All other systems negative. PHYSICAL EXAM: BP 126/67 (BP Site: Right Arm, BP Position: Sitting, BP Cuff Size: Regular Adult) Pulse 85 Temp 36.3 ?C (97.3 ?F) (Temporal Artery) Resp 16 Ht 177.8 cm (5' 10) Wt 105.7 kg (233 lb) BMI 33.43 kg/m? General Appearance: Well appearing, alert, in no acute distress, well-hydrated, well nourished. Respiratory: Lungs clear to auscultation. No wheezing, rhonchi, rales Heart: RRR without murmur, gallop, or rubs. No ectopy Abdomen: large hernia in lower mid abdomen, non reducible, nontender on palpation. No obvious acute skin changes. Multiple abdominal scars from prior abdominal surgery. DATA: Radiology: none Laboratory:No new labs ASSESSMENT AND PLAN: 57 year old female presenting with recurrent ventral hernia s/p multiple abdominal surgeries with reconstructed abdominal wall. Not able to obtain most recent CT imaging for visualization of abdomen and hernia. - Will likely need operative intervention for ventral hernia repair given symptoms - Will need CT imaging prior to deciding approach for repair The patient understands and agrees with the plan. Mtathew Londono MD General Surgery, PGY-1 Pager: [phone] DALIA JONES MD 03/18/2018 12:44 PM Signed Consultation requested by Dr. Mullen for an opinion regarding ventral hernia. My final recommendations will be communicated back to the requesting physician by way of shared medical record or letter via US mail I have seen and evaluated the patient and discussed the case with the resident physician. I agree with the assessment and plan as documented in the resident?s note. Adri Goyal is a 57 year old female who is here for evaluation of a recurrent ventral hernia. Her past surgical history includes multiple abdominal operations for bowel resection and reconstruction of abdominal wall after necrotizing fasciitis. She reports increased pain over the past 2 years since recurrence of the hernia and has had trouble walking due to hernia. On exam, she has a large hernia. Unfortunately she does not have her CT scan with her today so it is difficult to determine what she will need. Most likely this fredrick be an open repair but I would like to review her Ct scan before committing to a surgical approach. Once I review her CT scan we can discuss this further. Referring Provider: FILIBERTO MULLEN [[id number]] Allergies As of Date: 03/13/2018 Noted Allergy Reaction BACTRIM (SULFAMETHOXAZOLE) 08/13/2011 14 - Other: See Comments Comments: Cardiac issues, CIPRO IV only CIPRO I.V. (CIPROFLOXACIN) 06/28/2006 4 - Hives 12 - Shortness of Breath DIMETAPP (PSEUDOEPHEDRINE-DM) 12/04/2005 11 - Vomiting Comments: violently ill when overdosed on it as child ERYTHROMYCIN 11/29/2005 Comments: hives ok with zithromax KEFLEX (CEPHALEXIN) 11/29/2005 Comments: OK to give zosyn per MD -05-23 LATEX 11/29/2005 2 - Rash Comments: rash, breaks out everywhere, n/v , feels weak Can still eat food that is considered for latex allergies No allergic to latex foods per patient isaak 05/07/11 TETRACYCLINE 02/05/2006 Comments: hives Date Reviewed: 03/13/2018 Reviewed by: Dalia Jones - Fully Assessed Reason for Visit: Consult [173] Primary Visit Diagnosis:Recurrent ventral hernia [K43.2] Prescriptions as of 03/13/2018 Sig: MELOXICAM 15 MG TABLET Take 1 tablet by mouth once d* CLONAZEPAM 1 MG TABLET Take 1 tablet by mouth daily * ZOLPIDEM 10 MG TABLET Take 1 tablet by mouth at bed* QUETIAPINE 100 MG TABLET Take 1 tablet by mouth twice * INSULIN ASPART U-100 100 UNI* 15 units before meals + 2 u p* INSULIN GLARGINE (U-100) 100 * 20 units sq twice daily DULOXETINE 60 MG CAPSULE,JAG* Take 1 capsule by mouth daily* LOSARTAN 50 MG TABLET Take 1 tablet by mouth once d* POTASSIUM CHLORIDE ER 10 MEQ * Take 1 tablet by mouth twice * GABAPENTIN 100 MG CAPSULE 300 mg daily at bedtime ASPIRIN 81 MG TABLET,DELAYED * TAKE ONE TABLET BY MOUTH DAILY METOPROLOL SUCCINATE ER 25 MG* TAKE ONE TABLET BY MOUTH DAILY FLUTICASONE 50 MCG/ACTUATION * Use 2 Sprays in each nostril * OMEPRAZOLE 20 MG CAPSULE,JAG* Take 1 capsule by mouth twice* DIAPER,BRIEF,ADULT,DISPOSABLE 1 Each as needed. Dx: N36.0,* BLOOD SUGAR DIAGNOSTIC STRIPS TEST BLOOD SUGAR 6 TO 8 TIMES* LANCETS Use as instructed to test blo* BLOOD-GLUCOSE METER KIT As directed PEN NEEDLE, DIABETIC 33 GAUGE* 1 Each as directed. Use with * AMLODIPINE 5 MG TABLET TAKE TWO TABLETS BY MOUTH WILIAN* LANCETS REGULAR MISC 1 Each as directed. Use 6 x d* CHOLECALCIFEROL (VITAMIN D3) * Take 1 capsule by mouth once * MULTIVITAMIN WITH CALCIUM AND* Take 1 tablet by mouth twice * BLOOD SUGAR DIAGNOSTIC, DISC * 1 Each as directed. 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 Essential Hypertension, Benign [I10] INVALID FOR* More... Hyperpotassemia [E87.5] INVALID FOR*04/15/2017 Abdominal pain, left lower quadrant [R10.32] INVALID FOR*04/15/2017 Abdominal pain, right lower quadrant [R10.31] INVALID FOR*04/15/2017 Abdominal Pain, Generalized [R10.84] INVALID FOR* HTN (hypertension) [I10] 04/15/2017 More... GERD (Gastroesophageal Reflux Disease) [K21.9] More... Irritable Bowel Syndrome [K58.9] RSD lower limb [G90.529] 04/15/2017 Open wound of abdominal wall, anterior, complic* 04/15/2017 Depressive disorder, not elsewhere classified [* More... Morbid obesity (HCC) [E66.01] INVALID FOR*12/25/2016 Dietary surveillance and counseling [Z71.3] INVALID FOR*04/15/2017 Gastric bypass status for obesity [Z98.84] INVALID FOR*04/15/2017 More... Nausea AND vomiting [R11.2] INVALID FOR*04/15/2017 Other and unspecified postsurgical nonabsorptio*INVALID FOR*04/15/2017 Osteoporosis [M81.0] INVALID FOR*08/20/2013 On total parenteral nutrition (TPN) [Z78.9] INVALID FOR*04/15/2017 Malabsorption [K90.9] INVALID FOR* Fracture [T14.8XXA] INVALID FOR*04/15/2017 Hernia of abdominal wall [K43.9] INVALID FOR* H/O hyperglycemia [Z86.39] INVALID FOR*04/15/2017 Diarrhea [R19.7] INVALID FOR* Insomnia [G47.00] INVALID FOR* More... Diabetic neuropathy, painful (HCC) [E11.40] INVALID FOR* More... DM (diabetes mellitus) (HCC) [E11.9] INVALID FOR* More... Unspecified intestinal malabsorption [K90.9] INVALID FOR* More... Osteoporosis [M81.0] INVALID FOR* More... Vitamin D deficiency [E55.9] INVALID FOR* More... Post-operative state [Z98.890] INVALID FOR*04/15/2017 Obesity (BMI 30.0-34.9) [E66.9] INVALID FOR* More... Chronic pain in right shoulder [M25.511, G89.29]INVALID FOR* More... Impingement syndrome of right shoulder [M75.41] INVALID FOR* More... Migraines [G43.909] INVALID FOR* DDD (degenerative disc disease), lumbar [M51.36]INVALID FOR* Acute pain of right shoulder [M25.511] INVALID FOR* Visit Notes: >> Diallo Crowell [facility] Mar 13, 2018 1:56 PM Status: Signed What is the reason for your visit today? Consult Who is your referring physician? Dr. Mullen Are you having poor oral intake? NO Have you had unintentional weight loss of 15 lbs/7 Kg in the last 3-6 months? NO Bowels: regular Wound: clean AND dry Temperature: No Drains: No Encounter Status:Closed by DALIA JONES MD on 03/18/18 PROGRESS Observed: 03/11/2018 Status: COMPLETED Source: [place] 3:23 PM [facility] REPOSITORY HNO ID: [id number] Author: Mary (Rn) FERNIE Batista Service: (none) Author Type: Registered Nurse Type: Progress Notes Filed: 03/11/2018 3:36 PM Note Text: BMI SPECIALTY CARE COORDINATION CHART PREP Nature of upcoming visit -abdominal hernia. Symptoms and duration-ongoing. Current treatment none. Recent testing: CT Pertinent surgical history- multiple ex lap and VHR, cristine, creation of gastroesophageal anastomosis. Estimated BMI 33. Records: received, report scanned into epic ABDOMEN/PELVIS WITH Observed: 01/24/2018 Status: F Source: [place] 2:07 PM [facility] REPOSITORY [facility] Imaging Services [address] [place] [address] Abdomen/Pelvis WITH Contrast MR#: [id number] Acct: [id number] Name: ADRI GOYAL Rep #: [id number] : 1960 F 57 From: Alyssa Quinones MD PCP: Leon Jimenez MD Status: REG CLI Study: Abdomen/Pelvis WITH Contrast Date of Exam: 01/24/18 Exam# [id number] Ordering Dr: SANDRA ROBERTSON STUDY: CT ABDOMEN AND PELVIS WITH CONTRAST REASON FOR EXAM: Female, 57 years old. Lower abdominal pain history of necrotizing fasciitis, hysterectomy cholecystectomy gastric bypass partial colectomy and small bowel surgery. RADIATION DOSAGE (If Supplied By Facility): CTDIvol = ( 26.17 ) mGy, DLP = ( 1982.56 ) mGycm TECHNIQUE: Transaxial images were obtained from the dome of the diaphragm to the symphysis pubis without oral contrast. 100 ml of Isovue 300 contrast was administered. Sagittal and coronal images were reconstructed. Individualized dose optimization techniques were used for this CT. COMPARISON: May 03, 2012 CT scan abdomen and pelvis FINDINGS: The visualized lung bases are unremarkable. The visualized portions of the heart are within normal limits. Normal liver. There are surgical clips in the gallbladder fossa consistent with a prior cholecystectomy. Normal spleen. There is diffuse atrophy of the pancreas. Normal bilateral adrenal glands. There is a small focus of cortical thinning in the right kidney suggesting old infection or infarction. There are least 2 stones in the lower pole of the right kidney each measuring approximately 4.3 mm. There is mild right-sided pelviectasis tortuosity of the right ureter without evidence of stone along the course of the ureter. Normal left kidney. There is postoperative change at the gastroesophageal junction and stomach which appears to be peristaltic and similar in contour when compared to the prior study. There is a patulous partially contrasted appearance of the duodenum. There is also contrast within the small bowel. There is fairly dense contrast within the colon with a somewhat chronic stasis appearance. There is a moderate amount of stool in the colon. There is postoperative change adjacent to the left side of the distal colon/rectum. There is lobulated focal fat, adjacent to the right side of the sigmoid and rectum. Since prior study there is been development of a anterior lower abdominal wall hernia possibly within a postoperative site for which the large bowel herniates down into the left side of the zackery pubis best appreciated on the sagittal view image #103 where the bowel is anterior to the symphysis pubis. This is also seen on image #122. This area suggestive of the cecum allowing for the remaining bowel. There is no visualize colon on the left side and is been removed. There is postoperative change in the small bowel within the pelvis proximal to this hernia. The opening measures approximately 5.2 cm and is directly above the symphysis pubis. The herniation measures approximately 9.3 x 5.7 cm. The bowel appears distended but not necessarily obstructed at this time. There is non-visualization of the appendix. Normal abdominal aorta. Normal inferior vena cava. There are a few nonspecific perinephric lymph nodes. Bladder is decompressed and low lying. There is absence of the uterus consistent with a prior hysterectomy. There is a visualized scarring in the abdominal wall and a absent or atrophied appearance of the rectus muscle in the lower abdominal wall. Normal osseous structures. CT/Abdomen/Pelvis WITH Contrast IMPRESSION: In an area of prior surgical site or scarring in anterior pelvic wall, there is a hernia above the symphysis pubis extending into the mons pubis region with neck of 5.2 cm, through which large bowel and small bowel herniate up to 9.3 x 5.7 cm. Recommend consideration for surgical consult. Status post operative change stomach, status post partial colectomy, status post cholecystectomy Status post hysterectomy and postoperative change anterior abdominal wall. Nonobstructing lower pole right renal stones. Electronically Signed: Alyssa Quinones MD at 9:21 EDT Tel , Service support , CC: Leon Jimenez MD; SANDRA PODLOGRNEY Warehouse Hand: Signed SR-ABDOMEN/PELVIS WITH Observed: 01/24/2018 Status: F Source: [place] [facility] 12:00 AM [facility] REPOSITORY Images were obtained outside of [facility] [id number] SR-ABDOMEN/PELVIS WITH Observed: 01/24/2018 Status: F Source: [place] [facility] [place] 12:00 AM [facility] REPOSITORY Images were obtained outside of [facility] [id number] SR-ABDOMEN/PELVIS WITH Observed: 01/24/2018 Status: F Source: [place] [facility] 12:00 AM [facility] RE[facility]IT[facility] Images were obtained outside of [facility] [id number] PROGRESS Observed: 01/21/2018 Status: COMPLETED Source: [place] 1:23 PM [facility] HNO ID: [id number] Author: Pool Quigley Service: (none) Author Type: Physician Type: Progress Notes Filed: 01/21/2018 1:53 PM Note Text: [facility] Last seen 10-15-2017 Prolia Injection: 07-10-2017 Last DXA: 12-22-2015 - may not repeat - will not change tx at this point in time RE: Osteoporosis + DM - post RNYGB - 2010; with reversal for severe malnutrition/malabsorption requiring TPN 2012 CC: Osteoporosis AND post bariatric surgery with complications; + DM HPI: Adri Goyal is a 57 year old female who first presented in follow up for osteoporosis 09-23-2014, having seen a colleague in the department about a year prior - L ankle fx - missed a step - 2008 - numerous ankle fractures - elbows bilat - R wrist - fell on the ice with ORIF - She notes that after she received the Reclast injection last time she had severe painful cramping that lasted for weeks off and on FOLLOW UP VISIT 10-15-2017: Here today for DM follow up. She was prescribed phentermine by her pcp but is not on a formal weight loss program and states she has not lost any weight. Jake the prolia well without s/s.. FOLLOW UP VISIT 01-21-2018: Here in follow up for DM -- numerous issues including MOUNTER adjusting insulin recently -- now with some LBS. But not testing before all meals and so not getting the full benefit of the SSI insulin - working to clear a property some days so is more active -- may be an explanation for the LBS - also here for Prolia injection SMBG Meter: One Touch Ultra 2 Frequency: FBS NOON DINNER HS OTHER: RANGE 48 - 380 - some lbs [address] REVIEW OF SYSTEMS GENERAL: Wt - gradual gain persists HEENT: Negative for frequent or significant headaches NECK: Neg RESPIRATORY: Neg CARDIOVASCULAR: Neg GI: dumping 3-4x per week historically - not so much currently : neg MUSCULOSKELETAL: neg SKIN: Negative for lesions, rash, and itching. HEMATOLOGY/LYMPHOLOGY: Neg NEURO: notes tingling in her feet overnight that will wake her up sometimes Medical History PAST MEDICAL HISTORY Diagnosis Date - Abdominal pain, generalized CHRONIC PAIN MANAGEMENT - Bacterial overgrowth syndrome - Bowel disease - Depressive disorder, not elsewhere classified on cymbalta - Diabetes mellitus (HCC) 1980s on insulin since 1982 - Fracture - GERD (gastroesophageal reflux disease) resolved since 2004 - HTN (hypertension) resolved since 2004 - Incisional hernia without mention of obstruction or gangrene - Irritable bowel syndrome - Necrotizing fasciitis (HCC) - Obesity, unspecified 05-23-10 STATED BMI 35.91 Ht: 70 Wt: 250 lbs - Open wound of abdominal wall, anterior, complicated 1 - PMH - PAST MEDICAL HISTORY OF irritable bowel syndrome, necrotizing fasciitis, hypertension, diabetes, GERD, gastritis, - PMH - PAST MEDICAL HISTORY OF 09/2009 left foot break - RSD lower limb seen by pain management Surgical History PAST SURGICAL HISTORY Procedure Laterality Date - ARTHROS SHLDR DX W/WO SYNV BX Right 05/03/2017 Right shoulder arthroscopy, glenoid chondroplasty - FEEDING TUBE-SPECIFY J-tube - GASTRIC BYPASS, LION-EN-Y 04/27/11 - HYSTERECTOMY HX 2004 - PAST SURGICAL HISTORY OF colostomy, partial colectomy,OSMAR/BSO, right hand tendon rplaced, fatty tumor excision back and thigh,ulnar nreve surgery bilaterally, tonsillectomy - PAST SURGICAL HISTORY OF 2005 repair of fistulas - PAST SURGICAL HISTORY OF 2005 translupe colostomy - PAST SURGICAL HISTORY OF 2004 debredement due to necratizing fascitis - PAST SURGICAL HISTORY OF 2004 hysterectomy - PAST SURGICAL HISTORY OF STATES > 113 ABDOMINAL SURGERIES - PAST SURGICAL HISTORY OF resversal of colostomy - PAST SURGICAL HISTORY OF 10/2015 hernia repair/abdominal muscle repair - REPAIR COMPL ROTATOR CUFF AVULSN,CHR Right 05/03/2017 Glenoid chondroplasty, labtral debridement, SAD - TONSILLECTOMY HX 1977 Family History FAMILY HISTORY Problem Relation Age of Onset - Bipolar [OTHER] Mother - Diabetes Father Type 2 - Heart Father hypertension - Colon Cancer Paternal Grandfather dx'd age 61? - Hypertension Paternal Grandfather - Diabetes Paternal Grandfather Type 2 - Heart Daughter - Breast Cancer Paternal Aunt - Hypoplastic Left heart [OTHER] Son Social History Tobacco Use: Never Alcohol Use: No Supplements AND Compliance: as noted in her Med List Current Medications Current Outpatient Prescriptions on File Prior to Visit: clonazePAM (KLONOPIN) 1 mg tablet Take 1 tablet by mouth daily at bedtime for 30 days. meloxicam (MOBIC) 15 mg tablet Take 1 tablet by mouth once daily. Phentermine HCl (ADIPEX-P) 37.5 mg capsule Take 1 capsule by mouth once daily for 30 days. losartan (COZAAR) 25 mg tablet Take 1 tablet by mouth once daily. aspirin, enteric coated (ASPIRIN, ENTERIC COATED) 81 mg EC tablet TAKE ONE TABLET BY MOUTH DAILY metoprolol succinate ER (TOPROL XL) 25 mg 24 hr tablet TAKE ONE TABLET BY MOUTH DAILY fluticasone (FLONASE) 50 mcg/actuation nasal spray Use 2 Sprays in each nostril once daily. omeprazole (PRILOSEC) 20 mg capsule Take 1 capsule by mouth twice daily. Diaper,Brief, Adult,Disposable (PREVAIL ADJUST UNDERWEAR SHABANA LARA) misc 1 Each as needed. Dx: N36.0, K58.9 gabapentin (NEURONTIN) 100 mg capsule 300 mg daily at bedtime zolpidem (AMBIEN) 10 mg tab Take 1 tablet by mouth at bedtime as needed. blood sugar diagnostic (ONETOUCH ULTRA TEST) test strip TEST BLOOD SUGAR 6 TO 8 TIMES DAILY Dx: E11.9 Insulin:yes Lancets lancets Use as instructed to test blood sugars 8 times daily E11.9 Blood-Glucose Meter (ONETOUCH ULTRA2) monitoring kit As directed insulin glargine (LANTUS SOLOSTAR) 100 unit/mL (3 mL) inpn 30 u twice daily insulin aspart (NOVOLOG) 100 unit/mL inpn 18 units before meals + 2 u per 50 >150 pen needle, diabetic 33 gauge x 5/32 ndle 1 Each as directed. Use with injections 4x daily E11.9 amLODIPine (NORVASC) 5 mg tablet TAKE TWO TABLETS BY MOUTH DAILY QUEtiapine (SEROQUEL) 100 mg tablet Take 1 tablet by mouth twice daily. DULoxetine (CYMBALTA) 60 mg capsule Take 1 capsule by mouth daily at bedtime. LANCETS REGULAR MISC 1 Each as directed. Use 6 x daily cholecalciferol, Vitamin D3, (VITAMIN D3) 50,000 unit cap capsule Take 1 capsule by mouth once each week. Take with your largest meal of the day Multivits,CalciumAND Minerals-FA 267 mcg tab Take 1 tablet by mouth twice daily. Centrum Adult Chewables MVI with minerals is preferred; must be chewable Blood Sugar Diagnostic, Disc strp 1 Each as directed. CHECK BLOOD GLUCOSE EIGHT TIMES PER DAY/ estradiol (CLIMARA) 0.025 mg/24 hr Apply 1 Patch as directed once each week. gabapentin (NEURONTIN) 100 mg capsule Take 1 capsule by mouth once daily. No current facility-administered medications on file prior to visit. DXA: DATE OF EXAM: Dec 22 2015 DXA Model: Narus [facility] [employer] (S/N: [id number]) Site Scanned: Lumbar spine and left hip Date Scanned: 12/22/2015 11:35 AM RISK FACTORS FOR OSTEOPOROSIS AND ASSOCIATED FRACTURES REPORTED BY THIS PATIENT: Family history of osteoporosis in a first degree relative, postmenopausal female, rib, ankle, elbow and cheek bone fractures, kidney stones, disordered eating, vitamin D deficiency, Bariatric surgery CURRENT THERAPY: Calcium supplement, vitamin D , multivitamin and Reclast TECHNICAL LIMITATIONS: Degenerative disease of the spine RESULTS: Lumbar spine (L1-L4): 1.001 g/cm2, T-score -1.5, Z-score -0.8 Lumbar spine: 2013: 0.974 g/cm2 No statistically significant change Left Femoral Neck: 0.722 g/cm2, T-score -2.3, Z-score -1.3 Left Femoral Neck: 2013: 0.656 g/cm2 Statistically significant increase Left Total Hip: 0.679 g/cm2, T-score -2.6, Z-score -2.0 Left Total Hip: 2013: 0.604 g/cm2 Statistically significant increase CHANGE IS STATISTICALLY SIGNIFICANT IN THE SPINE OR HIP IF GREATER THAN OR EQUAL TO 0.04g/cm2 IMPRESSION: THE LOWEST T-SCORE IS -2.6 1) DIAGNOSIS (based on BMD alone): OSTEOPOROSIS - Caution: Medical conditions other than osteoporosis may cause low bone density, such as osteomalacia or renal osteodystrophy. Clinical correlation is necessary. 2) FRACTURE RISK (based on BMD alone): INCREASED RECOMMENDATIONS: All patients should receive the recommended daily allowance of calcium and vitamin D, as clinically indicated. Weight bearing exercises and strength training should be considered. Cessation of smoking and moderation of intake of alcohol, caffeine and carbonated beverages are recommended. NOF treatment recommendations (2008) Postmenopausal women and men age 50 and older presenting with the following should be treated: A hip or vertebral (clinical or morphometric) fracture T-score less than or equal to -2.5 at the femoral neck, total hip or spine after appropriate evaluation to exclude secondary causes Follow-up in 2 years or as clinically indicated. Follow-up scans should always be done on the same machine for accurate comparison. FOR MORE INFORMATION: [facility] Osteoporosis and Metabolic Bone Disease: [email or web address] National Osteoporosis Foundation: www.nof.org International Society of Clinical Densitometry www.iscd.org I have reviewed this images extensively and concur with the above noted assessment - on the date noted LABS: Component Latest Ref Rng AND Units 08/30/2017 10/15/2017 01/21/2018 Glucose 74 - 99 mg/dL 230 (H) BUN 7 - 21 mg/dL 19 Creatinine 0.58 - 0.96 mg/dL 0.80 Sodium 136 - 144 mmol/L 139 Potassium 3.7 - 5.1 mmol/L 4.6 Chloride 97 - 105 mmol/L 100 CO2 22 - 30 mmol/L 24 Anion Gap 9 - 18 mmol/L 15 Calcium 8.5 - 10.2 mg/dL 9.0 eGFR- >60 eGFR-All Other Races . >60 Hemoglobin A1C (POCT) 4.2 - 5.6 % 6.7 (A) 7.1 (A) 10-15-2017 A1c 6.7 Component Latest Ref Rng AND Units 06/27/2016 03/27/2017 Hemoglobin A1C 4.3 - 5.6 % 8.1 (H) 7.9 (H) Estimated Average Glucose mg/dL 186 180 Component Latest Ref Rng 01/07/2015 05/11/2015 06/24/2015 12/15/2015 06/27/2016 Hemoglobin A1C 4.3 - 5.6 % 7.4 (H) 7.2 (H) 6.7 (H) 6.6 (H) 8.1 (H) Estimated Average Glucose mg/dL 166 160 146 143 186 Component Latest Ref Rng 12/27/2015 12/31/2015 WBC 3.70 - 11.00 k/uL 4.66 RBC 3.90 - 5.20 m/uL 4.79 Hemoglobin 11.5 - 15.5 g/dL 11.9 Hematocrit 36.0 - 46.0 % 39.2 38.3 MCV 80.0 - 100.0 fL 80.0 MCH 26.0 - 34.0 pG 24.8 (L) MCHC 30.5 - 36.0 g/dL 31.1 RDW-CV 11.5 - 15.0 % 15.5 (H) Platelet Count 150 - 400 k/uL 229 MPV 9.0 - 12.7 fL 9.9 Neut% 68.4 Abs Neut (ANC) 1.45 - 7.50 k/uL 3.19 Lymph% 26.0 Abs Lymph 1.00 - 4.00 k/uL 1.21 [place]% 4.3 Abs [place] 0.00 - 0.86 k/uL 0.20 Eosin% 1.1 Abs Eosin 0.00 - 0.45 k/uL 0.05 Baso% 0.2 Abs Baso 0.00 - 0.10 k/uL 0.01 Diff Type Auto Diff Protein, Total 6.0 - 8.4 g/dL 7.2 Albumin 3.5 - 5.0 g/dL 4.2 Calcium 8.5 - 10.5 mg/dL 9.1 Bilirubin, Total 0.0 - 1.5 mg/dL 0.5 Alkaline Phosphatase 40 - 150 U/L 133 AST 7 - 40 U/L 22 Glucose 65 - 100 mg/dL 164 (H) BUN 8 - 25 mg/dL 15 Creatinine 0.70 - 1.40 mg/dL 0.72 Sodium 132 - 148 mmol/L 141 Potassium 3.5 - 5.0 mmol/L 4.0 Chloride 98 - 110 mmol/L 101 CO2 23 - 32 mmol/L 20 (L) Anion Gap 0 - 15 mmol/L 20 (H) ALT 0 - 45 U/L 10 eGFR- >60 eGFR-All Other Races >60 RBC Folate 257 - 800 ng/mL 501 Prealbumin 18 - 45 mg/dL 25 CRP 0.0 - 1.0 mg/dL 0.3 Vitamin A 0.30 - 1.20 mg/L 0.52 Vitamin B1, WB 70 - 180 nmol/L 126 Vitamin B12 221 - 700 pg/mL 294 Magnesium 1.7 - 2.6 mg/dL 1.9 Phosphorus 2.5 - 4.5 mg/dL 3.3 Vitamin D 25 Hydroxy 31.0 - 80.0 ng/mL 43.0 PHYSICAL EXAMINATION: General appearance: well appearing, alert, in no acute distress, obese with Body mass index is 33.15 kg/m?. Neck: Supple, no adenopathy; thyroid symmetric, normal size, no bruits Back: no pain to palpation over spine or costovertebral angles; shins no longer tender to deep palpation Musculoskeletal: Spine range of motion normal. Muscular strength intact; Neuro: grossly intact ASSESSMENT/PLAN: 1. 829.0 Multiple fractures 1b: Osteoporosis - multiple fractures that she reports starting in her late teen years - improved DXA as noted above-- likely due at least in part to concerted effort to consume adequate calcium, D and protein - Continue Prolia inj q 6 mo - will not repeat DXA at this point tho due -- will not change the course of tx 2. V45.86 Gastric bypass status for obesity 3. 579.3 Other and unspecified postsurgical nonabsorption - continues to take supplements - will continue to periodically check selected minerals as well as prealbumin to help guide her dietary selections - labs placed today - needs to be following a formal Kcal/R and get back to lean prot and vegetables in addition to routine physical activity - discussed at length with her today - ok to start PSMF diet - but to date has not started the diet 3. Incontinence of stool - persistent issue - wt loss is next step in the process because she is not a candidate for sx due to her weight status and this was discussed again today 4. B12 deficiency OTC 1000 mcg daily is recommended at this time - will monitor levels and may or may not require snf supplement vs getting sufficient B12 from diet + MVI 5. Vitamin D deficiency - 50,000 IU D3 weekly - to continue 6. Diabetes - Type 2 (confirmed by testing)- not at goal with interval worsening noted per A1c - reviewed SMBG today - adjusted insulins as follows in response to LBS and also counseled regarding need to routinely test and inject before EACH meal and not guess the needed dosage - PSMF Diet would substantially improve her bs and this was discussed again today Lantus 20 units bid Novolo units before meals + Sliding Scale Insulin to be used before meals for blood sugars > 200 150 - 200 - inject 0 additional units 201 - 250 - 2 units 251 - 300 -- 4 units 301 - 350 -- 6 units 351 - 400 -- 8 units The patient has my card, and knows how to reach my office. I thank you for the opportunity to participate in the continued care of this patient. Please do not hesitate to contact me if you have further concerns or questions. Pool Quigley, MS, RD, MD, CCD, FACN, FACP, FACE Diplomate, [place] [employer] Obesity Medicine Diplomate, [place] [employer] [facility] F-20 / [phone] / [id number] CNOV Observed: 01/21/2018 Status: COMPLETED Source: [place] 1:05 PM [facility] REPOSITORY Office Visit (ENDMED) ADRI GOYAL ([id number]) 1960 F TPN Date Time Provider Department 01/21/18 1:05 PM POOL QUIGLEY During your visit today, we recorded the following information about you: Pulse Blood pressure Weight Height 88/minute 118/78 104.1 kg 1.772 m Pool Quigley MD 01/21/2018 1:53 PM Signed [facility] Last seen 10-15-2017 Prolia Injection: 07-10-2017 Last DXA: 12-22-2015 - may not repeat - will not change tx at this point in time RE: Osteoporosis + DM - post RNYGB - 2010; with reversal for severe malnutrition/malabsorption requiring TPN 2012 CC: Osteoporosis AND post bariatric surgery with complications; + DM HPI: Adri Mcginnis Jay Jay is a 57 year old female who first presented in follow up for osteoporosis 09-23-2014, having seen a colleague in the department about a year prior - L ankle fx - missed a step - 2008 - numerous ankle fractures - elbows bilat - R wrist - fell on the ice with ORIF - She notes that after she received the Reclast injection last time she had severe painful cramping that lasted for weeks off and on FOLLOW UP VISIT 10-15-2017: Here today for DM follow up. She was prescribed phentermine by her pcp but is not on a formal weight loss program and states she has not lost any weight. Jake the prolia well without s/s.. FOLLOW UP VISIT 01-21-2018: Here in follow up for DM -- numerous issues including MOUNTER adjusting insulin recently -- now with some LBS. But not testing before all meals and so not getting the full benefit of the SSI insulin - working to clear a property some days so is more active -- may be an explanation for the LBS - also here for Prolia injection SMBG Meter: One Touch Ultra 2 Frequency: FBS NOON DINNER HS OTHER: RANGE 48 - 380 - some lbs [address] REVIEW OF SYSTEMS GENERAL: Wt - gradual gain persists HEENT: Negative for frequent or significant headaches NECK: Neg RESPIRATORY: Neg CARDIOVASCULAR: Neg GI: dumping 3-4x per week historically - not so much currently : neg MUSCULOSKELETAL: neg SKIN: Negative for lesions, rash, and itching. HEMATOLOGY/LYMPHOLOGY: Neg NEURO: notes tingling in her feet overnight that will wake her up sometimes Medical History PAST MEDICAL HISTORY Diagnosis Date - Abdominal pain, generalized CHRONIC PAIN MANAGEMENT - Bacterial overgrowth syndrome - Bowel disease - Depressive disorder, not elsewhere classified on cymbalta - Diabetes mellitus (HCC) 1980s on insulin since 1982 - Fracture - GERD (gastroesophageal reflux disease) resolved since 2004 - HTN (hypertension) resolved since 2004 - Incisional hernia without mention of obstruction or gangrene - Irritable bowel syndrome - Necrotizing fasciitis (HCC) - Obesity, unspecified 05-23-10 STATED BMI 35.91 Ht: 70 Wt: 250 lbs - Open wound of abdominal wall, anterior, complicated 1 - PMH - PAST MEDICAL HISTORY OF irritable bowel syndrome, necrotizing fasciitis, hypertension, diabetes, GERD, gastritis, - PMH - PAST MEDICAL HISTORY OF 09/2009 left foot break - RSD lower limb seen by pain management Surgical History PAST SURGICAL HISTORY Procedure Laterality Date - ARTHROS SHLDR DX W/WO SYNV BX Right 05/03/2017 Right shoulder arthroscopy, glenoid chondroplasty - FEEDING TUBE-SPECIFY J-tube - GASTRIC BYPASS, LION-EN-Y 04/27/11 - HYSTERECTOMY HX 2003 - PAST SURGICAL HISTORY OF colostomy, partial colectomy,OSMAR/BSO, right hand tendon rplaced, fatty tumor excision back and thigh,ulnar nreve surgery bilaterally, tonsillectomy - PAST SURGICAL HISTORY OF 2005 repair of fistulas - PAST SURGICAL HISTORY OF 2005 translupe colostomy - PAST SURGICAL HISTORY OF 2004 debredement due to necratizing fascitis - PAST SURGICAL HISTORY OF 2004 hysterectomy - PAST SURGICAL HISTORY OF STATES > 113 ABDOMINAL SURGERIES - PAST SURGICAL HISTORY OF resversal of colostomy - PAST SURGICAL HISTORY OF 10/2015 hernia repair/abdominal muscle repair - REPAIR COMPL ROTATOR CUFF AVULSN,CHR Right 05/03/2017 Glenoid chondroplasty, labtral debridement, SAD - TONSILLECTOMY HX 1978 Family History FAMILY HISTORY Problem Relation Age of Onset - Bipolar [OTHER] Mother - Diabetes Father Type 2 - Heart Father hypertension - Colon Cancer Paternal Grandfather dx'd age 61? - Hypertension Paternal Grandfather - Diabetes Paternal Grandfather Type 2 - Heart Daughter - Breast Cancer Paternal Aunt - Hypoplastic Left heart [OTHER] Son Social History Tobacco Use: Never Alcohol Use: No Supplements AND Compliance: as noted in her Med List Current Medications Current Outpatient Prescriptions on File Prior to Visit: clonazePAM (KLONOPIN) 1 mg tablet Take 1 tablet by mouth daily at bedtime for 30 days. meloxicam (MOBIC) 15 mg tablet Take 1 tablet by mouth once daily. Phentermine HCl (ADIPEX-P) 37.5 mg capsule Take 1 capsule by mouth once daily for 30 days. losartan (COZAAR) 25 mg tablet Take 1 tablet by mouth once daily. aspirin, enteric coated (ASPIRIN, ENTERIC COATED) 81 mg EC tablet TAKE ONE TABLET BY MOUTH DAILY metoprolol succinate ER (TOPROL XL) 25 mg 24 hr tablet TAKE ONE TABLET BY MOUTH DAILY fluticasone (FLONASE) 50 mcg/actuation nasal spray Use 2 Sprays in each nostril once daily. omeprazole (PRILOSEC) 20 mg capsule Take 1 capsule by mouth twice daily. Diaper,Brief, Adult,Disposable (PREVAIL ADJUST UNDERWEAR KIMBERLEY- ) misc 1 Each as needed. Dx: N36.0, K58.9 gabapentin (NEURONTIN) 100 mg capsule 300 mg daily at bedtime zolpidem (AMBIEN) 10 mg tab Take 1 tablet by mouth at bedtime as needed. blood sugar diagnostic (Budding BiologistTOUCH ULTRA TEST) test strip TEST BLOOD SUGAR 6 TO 8 TIMES DAILY Dx: E11.9 Insulin:yes Lancets lancets Use as instructed to test blood sugars 8 times daily E11.9 Blood-Glucose Meter (Budding BiologistTOUCH ULTRA2) monitoring kit As directed insulin glargine (LANTUS SOLOSTAR) 100 unit/mL (3 mL) inpn 30 u twice daily insulin aspart (NOVOLOG) 100 unit/mL inpn 18 units before meals + 2 u per 50 >150 pen needle, diabetic 33 gauge x 32 ndle 1 Each as directed. Use with injections 4x daily E11.9 amLODIPine (NORVASC) 5 mg tablet TAKE TWO TABLETS BY MOUTH DAILY QUEtiapine (SEROQUEL) 100 mg tablet Take 1 tablet by mouth twice daily. DULoxetine (CYMBALTA) 60 mg capsule Take 1 capsule by mouth daily at bedtime. LANCETS REGULAR MISC 1 Each as directed. Use 6 x daily cholecalciferol, Vitamin D3, (VITAMIN D3) 50,000 unit cap capsule Take 1 capsule by mouth once each week. Take with your largest meal of the day Multivits,CalciumAND Minerals-FA 267 mcg tab Take 1 tablet by mouth twice daily. Centrum Adult Chewables MVI with minerals is preferred; must be chewable Blood Sugar Diagnostic, Disc strp 1 Each as directed. CHECK BLOOD GLUCOSE EIGHT TIMES PER DAY/ estradiol (CLIMARA) 0.025 mg/24 hr Apply 1 Patch as directed once each week. gabapentin (NEURONTIN) 100 mg capsule Take 1 capsule by mouth once daily. No current facility-administered medications on file prior to visit. DXA: DATE OF EXAM: Dec 22 2015 DXA Model: Narus [facility] [employer] (S/N: [id number]) Site Scanned: Lumbar spine and left hip Date Scanned: 12/22/2015 11:35 AM RISK FACTORS FOR OSTEOPOROSIS AND ASSOCIATED FRACTURES REPORTED BY THIS PATIENT: Family history of osteoporosis in a first degree relative, postmenopausal female, rib, ankle, elbow and cheek bone fractures, kidney stones, disordered eating, vitamin D deficiency, Bariatric surgery CURRENT THERAPY: Calcium supplement, vitamin D , multivitamin and Reclast TECHNICAL LIMITATIONS: Degenerative disease of the spine RESULTS: Lumbar spine (L1-L4): 1.001 g/cm2, T-score -1.5, Z-score -0.8 Lumbar spine: 2012: 0.974 g/cm2 No statistically significant change Left Femoral Neck: 0.722 g/cm2, T-score -2.3, Z-score -1.3 Left Femoral Neck: 2013: 0.656 g/cm2 Statistically significant increase Left Total Hip: 0.679 g/cm2, T-score -2.6, Z-score -2.0 Left Total Hip: 2013: 0.604 g/cm2 Statistically significant increase CHANGE IS STATISTICALLY SIGNIFICANT IN THE SPINE OR HIP IF GREATER THAN OR EQUAL TO 0.04g/cm2 IMPRESSION: THE LOWEST T-SCORE IS -2.6 1) DIAGNOSIS (based on BMD alone): OSTEOPOROSIS - Caution: Medical conditions other than osteoporosis may cause low bone density, such as osteomalacia or renal osteodystrophy. Clinical correlation is necessary. 2) FRACTURE RISK (based on BMD alone): INCREASED RECOMMENDATIONS: All patients should receive the recommended daily allowance of calcium and vitamin D, as clinically indicated. Weight bearing exercises and strength training should be considered. Cessation of smoking and moderation of intake of alcohol, caffeine and carbonated beverages are recommended. NOF treatment recommendations (2008) Postmenopausal women and men age 50 and older presenting with the following should be treated: A hip or vertebral (clinical or morphometric) fracture T-score less than or equal to -2.5 at the femoral neck, total hip or spine after appropriate evaluation to exclude secondary causes Follow-up in 2 years or as clinically indicated. Follow-up scans should always be done on the same machine for accurate comparison. FOR MORE INFORMATION: [facility] for Osteoporosis and Metabolic Bone Disease: [email or web address] National Osteoporosis Foundation: www.nof.org International Society of Clinical Densitometry www.iscd.org I have reviewed this images extensively and concur with the above noted assessment - on the date noted LABS: Component Latest Ref Rng AND Units 08/30/2017 10/15/2017 01/21/2018 Glucose 74 - 99 mg/dL 230 (H) BUN 7 - 21 mg/dL 19 Creatinine 0.58 - 0.96 mg/dL 0.80 Sodium 136 - 144 mmol/L 139 Potassium 3.7 - 5.1 mmol/L 4.6 Chloride 97 - 105 mmol/L 100 CO2 22 - 30 mmol/L 24 Anion Gap 9 - 18 mmol/L 15 Calcium 8.5 - 10.2 mg/dL 9.0 eGFR- >60 eGFR-All Other Races . >60 Hemoglobin A1C (POCT) 4.2 - 5.6 % 6.7 (A) 7.1 (A) 10-15-2017 A1c 6.7 Component Latest Ref Rng AND Units 06/27/2016 03/27/2017 Hemoglobin A1C 4.3 - 5.6 % 8.1 (H) 7.9 (H) Estimated Average Glucose mg/dL 186 180 Component Latest Ref Rng 01/07/2015 05/11/2015 06/24/2015 12/15/2015 06/27/2016 Hemoglobin A1C 4.3 - 5.6 % 7.4 (H) 7.2 (H) 6.7 (H) 6.6 (H) 8.1 (H) Estimated Average Glucose mg/dL 166 160 146 143 186 Component Latest Ref Rng 12/27/2015 12/31/2015 WBC 3.70 - 11.00 k/uL 4.66 RBC 3.90 - 5.20 m/uL 4.79 Hemoglobin 11.5 - 15.5 g/dL 11.9 Hematocrit 36.0 - 46.0 % 39.2 38.3 MCV 80.0 - 100.0 fL 80.0 MCH 26.0 - 34.0 pG 24.8 (L) MCHC 30.5 - 36.0 g/dL 31.1 RDW-CV 11.5 - 15.0 % 15.5 (H) Platelet Count 150 - 400 k/uL 229 MPV 9.0 - 12.7 fL 9.9 Neut% 68.4 Abs Neut (ANC) 1.45 - 7.50 k/uL 3.19 Lymph% 26.0 Abs Lymph 1.00 - 4.00 k/uL 1.21 [place]% 4.3 Abs [place] 0.00 - 0.86 k/uL 0.20 Eosin% 1.1 Abs Eosin 0.00 - 0.45 k/uL 0.05 Baso% 0.2 Abs Baso 0.00 - 0.10 k/uL 0.01 Diff Type Auto Diff Protein, Total 6.0 - 8.4 g/dL 7.2 Albumin 3.5 - 5.0 g/dL 4.2 Calcium 8.5 - 10.5 mg/dL 9.1 Bilirubin, Total 0.0 - 1.5 mg/dL 0.5 Alkaline Phosphatase 40 - 150 U/L 133 AST 7 - 40 U/L 22 Glucose 65 - 100 mg/dL 164 (H) BUN 8 - 25 mg/dL 15 Creatinine 0.70 - 1.40 mg/dL 0.72 Sodium 132 - 148 mmol/L 141 Potassium 3.5 - 5.0 mmol/L 4.0 Chloride 98 - 110 mmol/L 101 CO2 23 - 32 mmol/L 20 (L) Anion Gap 0 - 15 mmol/L 20 (H) ALT 0 - 45 U/L 10 eGFR- >60 eGFR-All Other Races >60 RBC Folate 257 - 800 ng/mL 501 Prealbumin 18 - 45 mg/dL 25 CRP 0.0 - 1.0 mg/dL 0.3 Vitamin A 0.30 - 1.20 mg/L 0.52 Vitamin B1, WB 70 - 180 nmol/L 126 Vitamin B12 221 - 700 pg/mL 294 Magnesium 1.7 - 2.6 mg/dL 1.9 Phosphorus 2.5 - 4.5 mg/dL 3.3 Vitamin D 25 Hydroxy 31.0 - 80.0 ng/mL 43.0 PHYSICAL EXAMINATION: General appearance: well appearing, alert, in no acute distress, obese with Body mass index is 33.15 kg/m?. Neck: Supple, no adenopathy; thyroid symmetric, normal size, no bruits Back: no pain to palpation over spine or costovertebral angles; shins no longer tender to deep palpation Musculoskeletal: Spine range of motion normal. Muscular strength intact; Neuro: grossly intact ASSESSMENT/PLAN: 1. 829.0 Multiple fractures 1b: Osteoporosis - multiple fractures that she reports starting in her late teen years - improved DXA as noted above-- likely due at least in part to concerted effort to consume adequate calcium, D and protein - Continue Prolia inj q 6 mo - will not repeat DXA at this point tho due -- will not change the course of tx 2. V45.86 Gastric bypass status for obesity 3. 579.3 Other and unspecified postsurgical nonabsorption - continues to take supplements - will continue to periodically check selected minerals as well as prealbumin to help guide her dietary selections - labs placed today - needs to be following a formal Kcal/R and get back to lean prot and vegetables in addition to routine physical activity - discussed at length with her today - ok to start PSMF diet - but to date has not started the diet 3. Incontinence of stool - persistent issue - wt loss is next step in the process because she is not a candidate for sx due to her weight status and this was discussed again today 4. B12 deficiency OTC 1000 mcg daily is recommended at this time - will monitor levels and may or may not require snf supplement vs getting sufficient B12 from diet + MVI 5. Vitamin D deficiency - 50,000 IU D3 weekly - to continue 6. Diabetes - Type 2 (confirmed by testing)- not at goal with interval worsening noted per A1c - reviewed SMBG today - adjusted insulins as follows in response to LBS and also counseled regarding need to routinely test and inject before EACH meal and not guess the needed dosage - PSMF Diet would substantially improve her bs and this was discussed again today Lantus 20 units bid Novolo units before meals + Sliding Scale Insulin to be used before meals for blood sugars > 200 150 - 200 - inject 0 additional units 201 - 250 - 2 units 251 - 300 -- 4 units 301 - 350 -- 6 units 351 - 400 -- 8 units The patient has my card, and knows how to reach my office. I thank you for the opportunity to participate in the continued care of this patient. Please do not hesitate to contact me if you have further concerns or questions. Pool Quigley, MS, RD, MD, CCD, FACN, FACP, FACE Diplomate, [place] [employer] Obesity Medicine Diplomate, [place] [employer] [facility] F-20 / [phone] / [id number] Shantel Hargrove RN 01/21/2018 1:57 PM Signed The patient is here for an injection of Prolia Dose: 60 mg / mL Route: Subcutaneous Lot# [id number] Expiration date 01/2020 ND: [id number] Given without incident. Site: left arm Dr. Quigley present in clinic at time of injection. The date due for the next injection is 6 months. On or after 07/24/18. No PA required patient has Medicare as primary insurance. Patient education was given by nurse. Patient tolerated well in NAD and no reactions noted. Medication supplied by [facility] stock pharmacy Shantel Hargrove RN Referring Provider: SELF [[id number]] Allergies As of Date: 01/21/2018 Noted Allergy Reaction BACTRIM (SULFAMETHOXAZOLE) 08/13/2011 14 - Other: See Comments Comments: Cardiac issues, CIPRO IV only CIPRO I.V. (CIPROFLOXACIN) 06/28/2006 4 - Hives 12 - Shortness of Breath DIMETAPP (PSEUDOEPHEDRINE-DM) 12/04/2005 11 - Vomiting Comments: violently ill when overdosed on it as child ERYTHROMYCIN 11/29/2005 Comments: hives ok with zithromax KEFLEX (CEPHALEXIN) 11/29/2005 Comments: OK to give zosyn per MD 1-- LATEX 11/29/2005 2 - Rash Comments: rash, breaks out everywhere, n/v , feels weak Can still eat food that is considered for latex allergies No allergic to latex foods per patient isaak 05/07/11 TETRACYCLINE 02/05/2006 Comments: hives Date Reviewed: 01/21/2018 Reviewed by: Violetta Garland Ma - Fully Assessed Reason for Visit: prolia and diabetes [Other] Cmt: Patient brought meter Primary Visit Diagnosis:Intestinal malabsorption, unspecified type [K90.9] Other Visit Diagnoses: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 #:[id number] insulin aspart U-100 (NOVOLOG) 100 unit/mL inpn15 units before meals + 2 u per 50 >200 TDD 75 unitsDisp: 10 PenRfl: 11 insulin glargine (BASAGLAR KWIKPEN U-100 INSULIN) 100 unit/mL (3 mL) inpn20 units sq twice dailyDisp: 5 PenRfl: 5 Prescriptions as of 01/21/2018 Sig: INSULIN GLARGINE (U-100) 100 * 20 units sq twice daily CLONAZEPAM 1 MG TABLET Take 1 tablet by mouth daily * MELOXICAM 15 MG TABLET Take 1 tablet by mouth once d* ZOLPIDEM 10 MG TABLET Take 1 tablet by mouth at bed* DULOXETINE 60 MG CAPSULE,JAG* Take 1 capsule by mouth daily* LOSARTAN 50 MG TABLET Take 1 tablet by mouth once d* POTASSIUM CHLORIDE ER 10 MEQ * Take 1 tablet by mouth twice * GABAPENTIN 100 MG CAPSULE 300 mg daily at bedtime ASPIRIN 81 MG TABLET,DELAYED * TAKE ONE TABLET BY MOUTH DAILY METOPROLOL SUCCINATE ER 25 MG* TAKE ONE TABLET BY MOUTH DAILY FLUTICASONE 50 MCG/ACTUATION * Use 2 Sprays in each nostril * OMEPRAZOLE 20 MG CAPSULE,JAG* Take 1 capsule by mouth twice* DIAPER,BRIEF,ADULT,DISPOSABLE 1 Each as needed. Dx: N36.0,* BLOOD SUGAR DIAGNOSTIC STRIPS TEST BLOOD SUGAR 6 TO 8 TIMES* LANCETS Use as instructed to test blo* BLOOD-GLUCOSE METER KIT As directed PEN NEEDLE, DIABETIC 33 GAUGE* 1 Each as directed. Use with * AMLODIPINE 5 MG TABLET TAKE TWO TABLETS BY MOUTH WILIAN* QUETIAPINE 100 MG TABLET Take 1 tablet by mouth twice * LANCETS REGULAR MISC 1 Each as directed. Use 6 x d* CHOLECALCIFEROL (VITAMIN D3) * Take 1 capsule by mouth once * MULTIVITAMIN WITH CALCIUM AND* Take 1 tablet by mouth twice * BLOOD SUGAR DIAGNOSTIC, DISC * 1 Each as directed. 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 Essential Hypertension, Benign [I10] INVALID FOR* More... Hyperpotassemia [E87.5] INVALID FOR*04/15/2017 Abdominal pain, left lower quadrant [R10.32] INVALID FOR*04/15/2017 Abdominal pain, right lower quadrant [R10.31] INVALID FOR*04/15/2017 Abdominal Pain, Generalized [R10.84] INVALID FOR* HTN (hypertension) [I10] 04/15/2017 More... GERD (Gastroesophageal Reflux Disease) [K21.9] More... Irritable Bowel Syndrome [K58.9] RSD lower limb [G90.529] 04/15/2017 Open wound of abdominal wall, anterior, complic* 04/15/2017 Depressive disorder, not elsewhere classified [* More... Morbid obesity (HCC) [E66.01] INVALID FOR*12/25/2016 Dietary surveillance and counseling [Z71.3] INVALID FOR*04/15/2017 Gastric bypass status for obesity [Z98.84] INVALID FOR*04/15/2017 More... Nausea AND vomiting [R11.2] INVALID FOR*04/15/2017 Other and unspecified postsurgical nonabsorptio*INVALID FOR*04/15/2017 Osteoporosis [M81.0] INVALID FOR*08/20/2013 On total parenteral nutrition (TPN) [Z78.9] INVALID FOR*04/15/2017 Malabsorption [K90.9] INVALID FOR* Fracture [T14.8XXA] INVALID FOR*04/15/2017 Hernia of abdominal wall [K43.9] INVALID FOR* H/O hyperglycemia [Z86.39] INVALID FOR*04/15/2017 Diarrhea [R19.7] INVALID FOR* Insomnia [G47.00] INVALID FOR* More... Diabetic neuropathy, painful (HCC) [E11.40] INVALID FOR* More... DM (diabetes mellitus) (HCC) [E11.9] INVALID FOR* More... Unspecified intestinal malabsorption [K90.9] INVALID FOR* More... Osteoporosis [M81.0] INVALID FOR* More... Vitamin D deficiency [E55.9] INVALID FOR* More... Post-operative state [Z98.890] INVALID FOR*04/15/2017 Obesity (BMI 30.0-34.9) [E66.9] INVALID FOR* More... Chronic pain in right shoulder [M25.511, G89.29]INVALID FOR* More... Impingement syndrome of right shoulder [M75.41] INVALID FOR* More... Migraines [G43.909] INVALID FOR* DDD (degenerative disc disease), lumbar [M51.36]INVALID FOR* Acute pain of right shoulder [M25.511] INVALID FOR* Visit Notes: >> Shantel Kothari Jan 21, 2018 1:54 PM Status: Signed The patient is here for an injection of Prolia Dose: 60 mg / mL Route: Subcutaneous Lot# [id number] Expiration date 01/2020 [facility]: 79697-272-28 Given without incident. Site: left arm Dr. Quigley present in clinic at time of injection. The date due for the next injection is 6 months. On or after 07/24/18. No PA required patient has Medicare as primary insurance. Patient education was given by nurse. Patient tolerated well in NAD and no reactions noted. Medication supplied by [facility] stock pharmacy Shantel Hargrove RN Prescriptions ordered this encounter Disp Refills Start End INSULIN ASPART U-100 100 UNIT/ML [place]* 10 P* 11 01/21/2018 Class: Med Update Si units before meals + 2 u per 50 >200 TDD 75 units INSULIN GLARGINE (U-100) 100 UNIT/ML* 5 Pen 5 01/21/2018 Class: Med Update Si units sq twice daily Medications Discontinued During This Encounter insulin aspart U-100 (NOVOLOG) 100 u* 10 P* 11 10/15/2017 01/21/2018 Class: Med Update Si units before meals + 2 u per 50 >200 Patient not taking: Reported on 01/21/2018 Disc: Reason for discontinue is not on file. insulin glargine (BASAGLAR KWIKPEN U* 5 Pen 5 10/18/2017 01/21/2018 Si units sq each evening Disc: Reason for discontinue is not on file. Disposition: Return in about 2 months (around 03/23/2018) for diabetes / PSMF . Follow-up and Disposition History Recorded Encounter Status:Closed by POOL QUIGLEY MD on 01/21/18 Observed: 01/14/2018 Status: F Source: [place] STOOL CULTURE 9:00 PM [facility] REPOSITORY Campylobacter EIA - Test method has changed. Incorrect order replaced with order for new test. Shiga Toxin - Test method has changed. Incorrect order replaced with order for new test. Account Credited [facility] SEE ACC [id number] Culture Result - Test method has changed. Incorrect order replaced with order for new test. Account Credited [facility] SEE ACC [id number] Performed By: #### STCUL #### [place] [id number] C DIFFICILE PCR Collected: 01/14/2018 Status: F Source: [place] 9:00 PM [facility] REPOSITORY TYPE CODE TESTS RESULT OUT OF REFERENCE UNITS RANGE LAB CDFRES C difficile PCR Negative for C. difficile toxin by PCR Performed By: #### CDPCR #### [place] [id number] OCCULT BLOOD DIAG. Collected: 01/14/2018 Status: F Source: [place] 9:00 PM [facility] REPOSITORY TYPE CODE TESTS RESULT OUT OF REFERENCE UNITS RANGE LAB OBSRCE Stool Occult Blood Source: LAB OBD Unable Occult to assay. Blood Diag. Specimen improperly collected/handle d. Result Comment: Account Credited Called to Kirk at [facility] on 01.16.18 at 0816 by Ferny. Performed By: #### OBDX #### [place] [address] ENTERIC BACT PNL PCR Collected: 01/14/2018 Status: F Source: [place] 9:00 PM [facility] TYPE CODE TESTS RESULT OUT OF REFERENCE UNITS RANGE LAB PCRSHG Shigella/EIEC Not Detected DNA LAB PCRCMP Campy jejun/coli DNA Not Detected LAB PCRSTX Shiga toxin gene(s) Not Detected LAB PCRSAL Salmonella spp. Not Detected DNA Performed By: #### STLPCR #### [place] [address] Observed: 01/14/2018 Status: F Source: [place] FECAL LACTOFERRIN 9:00 PM [facility] REPOSITORY Test Result - Positive for lactoferrin, which may indicate presence of fecal white blood cells Performed By: #### STLWBC #### [place] [address] CNOV Observed: 01/14/2018 Status: COMPLETED Source: [place] 11:45 AM [facility] REPOSITORY Office Visit (WOOB) ADRI GOYAL ([id number]) 1960 F TPN Date Time Provider Department 01/14/18 11:45 AM JOIE MORROW ([facility]) [facility]OO[facility] During your visit today, we recorded the following information about you: Blood pressure Weight 118/80 103.2 kg Joie Morrow APRN.[facility] 01/14/2018 12:44 PM Signed Adri Mcginnis Jay Jay is a 57 year old female who presents for problem visit Bladder prolapse. HPI: pt has notice more pressure in the vagina and is having some trouble completely emptying her bladder at times. No recent UTI infections or symptoms. Pt has had multiple abdominal surgeries and currently has a hernia and large lump on the mons pubis. Would like to try a pessary fitting today. PAST MEDICAL HISTORY Diagnosis Date - Abdominal pain, generalized CHRONIC PAIN MANAGEMENT - Bacterial overgrowth syndrome - Bowel disease - Depressive disorder, not elsewhere classified on cymbalta - Diabetes mellitus (HCC) 1980s on insulin since 1982 - Fracture - GERD (gastroesophageal reflux disease) resolved since 2004 - HTN (hypertension) resolved since 2004 - Incisional hernia without mention of obstruction or gangrene - Irritable bowel syndrome - Necrotizing fasciitis (HCC) - Obesity, unspecified 05-23-10 STATED BMI 35.91 Ht: 70 Wt: 250 lbs - Open wound of abdominal wall, anterior, complicated 1 - PMH - PAST MEDICAL HISTORY OF irritable bowel syndrome, necrotizing fasciitis, hypertension, diabetes, GERD, gastritis, - PMH - PAST MEDICAL HISTORY OF 09/2009 left foot break - RSD lower limb seen by pain management PAST SURGICAL HISTORY Procedure Laterality Date - ARTHROS SHLDR DX W/WO SYNV BX Right 05/03/2017 Right shoulder arthroscopy, glenoid chondroplasty - FEEDING TUBE-SPECIFY J-tube - GASTRIC BYPASS, LION-EN-Y 04/27/11 - HYSTERECTOMY HX 2003 - PAST SURGICAL HISTORY OF colostomy, partial colectomy,OSMAR/BSO, right hand tendon rplaced, fatty tumor excision back and thigh,ulnar nreve surgery bilaterally, tonsillectomy - PAST SURGICAL HISTORY OF 2005 repair of fistulas - PAST SURGICAL HISTORY OF 2005 translupe colostomy - PAST SURGICAL HISTORY OF 2004 debredement due to necratizing fascitis - PAST SURGICAL HISTORY OF 2004 hysterectomy - PAST SURGICAL HISTORY OF STATES > 113 ABDOMINAL SURGERIES - PAST SURGICAL HISTORY OF resversal of colostomy - PAST SURGICAL HISTORY OF 10/2015 hernia repair/abdominal muscle repair - REPAIR COMPL ROTATOR CUFF AVULSN,CHR Right 05/03/2017 Glenoid chondroplasty, labtral debridement, SAD - TONSILLECTOMY HX 1978 FAMILY HISTORY Problem Relation Age of Onset - Bipolar [OTHER] Mother - Diabetes Father Type 2 - Heart Father hypertension - Colon Cancer Paternal Grandfather dx'd age 61? - Hypertension Paternal Grandfather - Diabetes Paternal Grandfather Type 2 - Heart Daughter - Breast Cancer Paternal Aunt - Hypoplastic Left heart [OTHER] Son Social History Marital status: Spouse name: dalia Years of education: 13 Number of children: 4 Occupational History Occupation Employer Comment disabled Social History Main Topics Smoking status: Never Smoker Smokeless tobacco: Never Used Alcohol use: No Drug use: No Sexual activity: Yes Partners with: Male Current Outpatient Prescriptions: clonazePAM (KLONOPIN) 1 mg tablet Take 1 tablet by mouth daily at bedtime for 30 days. meloxicam (MOBIC) 15 mg tablet Take 1 tablet by mouth once daily. zolpidem (AMBIEN) 10 mg tab Take 1 tablet by mouth at bedtime as needed for up to 30 days. DULoxetine (CYMBALTA) 60 mg capsule Take 1 capsule by mouth daily at bedtime. losartan (COZAAR) 50 mg tablet Take 1 tablet by mouth once daily. insulin glargine (BASAGLAR KWIKPEN U-100 INSULIN) 100 unit/mL (3 mL) inpn 15 units sq each evening potassium chloride (K-TAB) 10 mEq tablet Take 1 tablet by mouth twice daily. insulin aspart U-100 (NOVOLOG) 100 unit/mL inpn 8 units before meals + 2 u per 50 >200 gabapentin (NEURONTIN) 100 mg capsule 300 mg daily at bedtime aspirin, enteric coated (ASPIRIN, ENTERIC COATED) 81 mg EC tablet TAKE ONE TABLET BY MOUTH DAILY metoprolol succinate ER (TOPROL XL) 25 mg 24 hr tablet TAKE ONE TABLET BY MOUTH DAILY fluticasone (FLONASE) 50 mcg/actuation nasal spray Use 2 Sprays in each nostril once daily. omeprazole (PRILOSEC) 20 mg capsule Take 1 capsule by mouth twice daily. Diaper,Brief, Adult,Disposable (PREVAIL ADJUST UNDERWEAR SHABANA LARA) misc 1 Each as needed. Dx: N36.0, K58.9 estradiol (CLIMARA) 0.025 mg/24 hr Apply 1 Patch as directed once each week. blood sugar diagnostic (ONETOUCH ULTRA TEST) test strip TEST BLOOD SUGAR 6 TO 8 TIMES DAILY Dx: E11.9 Insulin:yes Lancets lancets Use as instructed to test blood sugars 8 times daily E11.9 Blood-Glucose Meter (ONETOUCH ULTRA2) monitoring kit As directed pen needle, diabetic 33 gauge x 5/32 ndle 1 Each as directed. Use with injections 4x daily E11.9 amLODIPine (NORVASC) 5 mg tablet TAKE TWO TABLETS BY MOUTH DAILY QUEtiapine (SEROQUEL) 100 mg tablet Take 1 tablet by mouth twice daily. LANCETS REGULAR MISC 1 Each as directed. Use 6 x daily cholecalciferol, Vitamin D3, (VITAMIN D3) 50,000 unit cap capsule Take 1 capsule by mouth once each week. Take with your largest meal of the day Multivits,CalciumAND Minerals-FA 267 mcg tab Take 1 tablet by mouth twice daily. Centrum Adult Chewables MVI with minerals is preferred; must be chewable Blood Sugar Diagnostic, Disc strp 1 Each as directed. CHECK BLOOD GLUCOSE EIGHT TIMES PER DAY/ Current Facility-Administered Medications: denosumab 60 mg injection (PROLIA) 60 mg SUBCUTANEOUS Q 6 MONTH Allergies As of Date: 01/14/2018 Allergen Noted Reaction BACTRIM [SULFAMETHOXAZOLE] 08/13/2011 Other: See Comments CIPRO I.V. [CIPROFLOXACIN] 06/28/2006 Hives and Shortness of Breath DIMETAPP [PSEUDOEPHEDRINE-DM] 12/04/2005 Vomiting ERYTHROMYCIN 11/29/2005 KEFLEX [CEPHALEXIN] 11/29/2005 LATEX 11/29/2005 Rash TETRACYCLINE 02/05/2006 Fully Assessed 01/08/2018 REVIEW OF SYSTEMS Abdomen: No bloating, early satiety, indigestion, or increased flatulence. No abdominal pain, nausea, vomiting, diarrhea, or constipation. Bladder: No dysuria, gross hematuria, urinary frequency, urinary urgency, or incontinence. Expanded ROS: N/A Allergies and current medication updated:Yes EXAM: There were no vitals taken for this visit. GENERAL: pleasant, female in no apparent distress HEENT: Normocephalic, atraumatic, mucus membranes moist and no lesions CHEST: Normal inspiratory effort PELVIC: external genitalia normal, normal Bartholin's glands, urethra, [place]'s glands, physiologic discharge present, normal appearing perineal body and perianal region, cervix surgically absent, cystocele 2nd degree BIMANUAL: non-tender and uterus surgically absent NEURO: alert and oriented x3,exam grossly non-focal ASSESSMENT AND PLAN: Bladder prolapse Several pessaries tried with no success in achieving comfort for the pt Referral to Uro/Show Host/Hostess made Joie Morrow APRN.WATER ATTENDANT Referring Provider: CHERRILOGSANDRA OGLESBY ([facility]) [[id number]] Allergies As of Date: 01/14/2018 Noted Allergy Reaction BACTRIM (SULFAMETHOXAZOLE) 08/13/2011 14 - Other: See Comments Comments: Cardiac issues, CIPRO IV only CIPRO I.V. (CIPROFLOXACIN) 06/28/2006 4 - Hives 12 - Shortness of Breath DIMETAPP (PSEUDOEPHEDRINE-DM) 12/04/2005 11 - Vomiting Comments: violently ill when overdosed on it as child ERYTHROMYCIN 11/29/2005 Comments: hives ok with zithromax KEFLEX (CEPHALEXIN) 11/29/2005 Comments: OK to give zosyn per MD -05-23 LATEX 11/29/2005 2 - Rash Comments: rash, breaks out everywhere, n/v , feels weak Can still eat food that is considered for latex allergies No allergic to latex foods per patient isaak 05/07/11 TETRACYCLINE 02/05/2006 Comments: hives Date Reviewed: 01/14/2018 Reviewed by: Joie Beyer) Odalys - Fully Assessed Reason for Visit: Vaginal Problem [117] Primary Visit Diagnosis:Bladder prolapse, female, acquired [N81.10] Order(s):CONSULT TO FEMALE UROLOGY/URO GYNECOLOGY [[id number]] Order #: [id number]: 1 Prescriptions as of 01/14/2018 Sig: CLONAZEPAM 1 MG TABLET Take 1 tablet by mouth daily * MELOXICAM 15 MG TABLET Take 1 tablet by mouth once d* ZOLPIDEM 10 MG TABLET Take 1 tablet by mouth at bed* DULOXETINE 60 MG CAPSULE,JAG* Take 1 capsule by mouth daily* LOSARTAN 50 MG TABLET Take 1 tablet by mouth once d* INSULIN GLARGINE (U-100) 100 * 15 units sq each evening INSULIN ASPART U-100 100 UNI* 8 units before meals + 2 u pe* GABAPENTIN 100 MG CAPSULE 300 mg daily at bedtime ASPIRIN 81 MG TABLET,DELAYED * TAKE ONE TABLET BY MOUTH DAILY METOPROLOL SUCCINATE ER 25 MG* TAKE ONE TABLET BY MOUTH DAILY FLUTICASONE 50 MCG/ACTUATION * Use 2 Sprays in each nostril * OMEPRAZOLE 20 MG CAPSULE,JAG* Take 1 capsule by mouth twice* DIAPER,BRIEF,ADULT,DISPOSABLE 1 Each as needed. Dx: N36.0,* BLOOD SUGAR DIAGNOSTIC STRIPS TEST BLOOD SUGAR 6 TO 8 TIMES* LANCETS Use as instructed to test blo* BLOOD-GLUCOSE METER KIT As directed PEN NEEDLE, DIABETIC 33 GAUGE* 1 Each as directed. Use with * AMLODIPINE 5 MG TABLET TAKE TWO TABLETS BY MOUTH WILIAN* QUETIAPINE 100 MG TABLET Take 1 tablet by mouth twice * LANCETS REGULAR MISC 1 Each as directed. Use 6 x d* CHOLECALCIFEROL (VITAMIN D3) * Take 1 capsule by mouth once * MULTIVITAMIN WITH CALCIUM AND* Take 1 tablet by mouth twice * BLOOD SUGAR DIAGNOSTIC, DISC * 1 Each as directed. 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 Essential Hypertension, Benign [I10] INVALID FOR* More... Hyperpotassemia [E87.5] INVALID FOR*04/15/2017 Abdominal pain, left lower quadrant [R10.32] INVALID FOR*04/15/2017 Abdominal pain, right lower quadrant [R10.31] INVALID FOR*04/15/2017 Abdominal Pain, Generalized [R10.84] INVALID FOR* HTN (hypertension) [I10] 04/15/2017 More... GERD (Gastroesophageal Reflux Disease) [K21.9] More... Irritable Bowel Syndrome [K58.9] RSD lower limb [G90.529] 04/15/2017 Open wound of abdominal wall, anterior, complic* 04/15/2017 Depressive disorder, not elsewhere classified [* More... Morbid obesity (HCC) [E66.01] INVALID FOR*12/25/2016 Dietary surveillance and counseling [Z71.3] INVALID FOR*04/15/2017 Gastric bypass status for obesity [Z98.84] INVALID FOR*04/15/2017 More... Nausea AND vomiting [R11.2] INVALID FOR*04/15/2017 Other and unspecified postsurgical nonabsorptio*INVALID FOR*04/15/2017 Osteoporosis [M81.0] INVALID FOR*08/20/2013 On total parenteral nutrition (TPN) [Z78.9] INVALID FOR*04/15/2017 Malabsorption [K90.9] INVALID FOR* Fracture [T14.8XXA] INVALID FOR*04/15/2017 Hernia of abdominal wall [K43.9] INVALID FOR* H/O hyperglycemia [Z86.39] INVALID FOR*04/15/2017 Diarrhea [R19.7] INVALID FOR* Insomnia [G47.00] INVALID FOR* More... Diabetic neuropathy, painful (HCC) [E11.40] INVALID FOR* More... DM (diabetes mellitus) (HCC) [E11.9] INVALID FOR* More... Unspecified intestinal malabsorption [K90.9] INVALID FOR* More... Osteoporosis [M81.0] INVALID FOR* More... Vitamin D deficiency [E55.9] INVALID FOR* More... Post-operative state [Z98.890] INVALID FOR*04/15/2017 Obesity (BMI 30.0-34.9) [E66.9] INVALID FOR* More... Chronic pain in right shoulder [M25.511, G89.29]INVALID FOR* More... Impingement syndrome of right shoulder [M75.41] INVALID FOR* More... Migraines [G43.909] INVALID FOR* DDD (degenerative disc disease), lumbar [M51.36]INVALID FOR* Acute pain of right shoulder [M25.511] INVALID FOR* Medications Discontinued During This Encounter estradiol (CLIMARA) 0.025 mg/24 hr 4 Pa* 12 05/28/2017 01/14/2018 Route: TRANSDERMAL Sig: Apply 1 Patch as directed once each week. Disc: Reason for discontinue is not on file. Encounter Status:Closed by JOIE MORROW on 01/14/18 PROGRESS Observed: 01/14/2018 Status: COMPLETED Source: [place] 11:40 AM [facility] REPOSITORY O ID: [id number] Author: Joie Beyer) Odalys Service: (none) Author Type: Nurse Practitioner Type: Progress Notes Filed: 01/14/2018 12:44 PM Note Text: Adri Goyal is a 57 year old female who presents for problem visit Bladder prolapse. HPI: pt has notice more pressure in the vagina and is having some trouble completely emptying her bladder at times. No recent UTI infections or symptoms. Pt has had multiple abdominal surgeries and currently has a hernia and large lump on the mons pubis. Would like to try a pessary fitting today. PAST MEDICAL HISTORY Diagnosis Date - Abdominal pain, generalized CHRONIC PAIN MANAGEMENT - Bacterial overgrowth syndrome - Bowel disease - Depressive disorder, not elsewhere classified on cymbalta - Diabetes mellitus (HCC) 1980s on insulin since 1982 - Fracture - GERD (gastroesophageal reflux disease) resolved since 2004 - HTN (hypertension) resolved since 2004 - Incisional hernia without mention of obstruction or gangrene - Irritable bowel syndrome - Necrotizing fasciitis (HCC) - Obesity, unspecified 05-23-10 STATED BMI 35.91 Ht: 70 Wt: 250 lbs - Open wound of abdominal wall, anterior, complicated 1 - PMH - PAST MEDICAL HISTORY OF irritable bowel syndrome, necrotizing fasciitis, hypertension, diabetes, GERD, gastritis, - PMH - PAST MEDICAL HISTORY OF 09/2009 left foot break - RSD lower limb seen by pain management PAST SURGICAL HISTORY Procedure Laterality Date - ARTHROS SHLDR DX W/WO SYNV BX Right 05/03/2017 Right shoulder arthroscopy, glenoid chondroplasty - FEEDING TUBE-SPECIFY J-tube - GASTRIC BYPASS, LION-EN-Y 04/27/11 - HYSTERECTOMY HX 2003 - PAST SURGICAL HISTORY OF colostomy, partial colectomy,OSMAR/BSO, right hand tendon rplaced, fatty tumor excision back and thigh,ulnar nreve surgery bilaterally, tonsillectomy - PAST SURGICAL HISTORY OF 2005 repair of fistulas - PAST SURGICAL HISTORY OF 2006 translupe colostomy - PAST SURGICAL HISTORY OF 2004 debredement due to necratizing fascitis - PAST SURGICAL HISTORY OF 2005 hysterectomy - PAST SURGICAL HISTORY OF STATES > 113 ABDOMINAL SURGERIES - PAST SURGICAL HISTORY OF resversal of colostomy - PAST SURGICAL HISTORY OF 10/2015 hernia repair/abdominal muscle repair - REPAIR COMPL ROTATOR CUFF AVULSN,CHR Right 05/03/2017 Glenoid chondroplasty, labtral debridement, SAD - TONSILLECTOMY HX 1977 FAMILY HISTORY Problem Relation Age of Onset - Bipolar [OTHER] Mother - Diabetes Father Type 2 - Heart Father hypertension - Colon Cancer Paternal Grandfather dx'd age 61? - Hypertension Paternal Grandfather - Diabetes Paternal Grandfather Type 2 - Heart Daughter - Breast Cancer Paternal Aunt - Hypoplastic Left heart [OTHER] Son Social History Marital status: Spouse name: dalia Years of education: 13 Number of children: 4 Occupational History Occupation Employer Comment disabled Social History Main Topics Smoking status: Never Smoker Smokeless tobacco: Never Used Alcohol use: No Drug use: No Sexual activity: Yes Partners with: Male Current Outpatient Prescriptions: clonazePAM (KLONOPIN) 1 mg tablet Take 1 tablet by mouth daily at bedtime for 30 days. meloxicam (MOBIC) 15 mg tablet Take 1 tablet by mouth once daily. zolpidem (AMBIEN) 10 mg tab Take 1 tablet by mouth at bedtime as needed for up to 30 days. DULoxetine (CYMBALTA) 60 mg capsule Take 1 capsule by mouth daily at bedtime. losartan (COZAAR) 50 mg tablet Take 1 tablet by mouth once daily. insulin glargine (BASAGLAR KWIKPEN U-100 INSULIN) 100 unit/mL (3 mL) inpn 15 units sq each evening potassium chloride (K-TAB) 10 mEq tablet Take 1 tablet by mouth twice daily. insulin aspart U-100 (NOVOLOG) 100 unit/mL inpn 8 units before meals + 2 u per 50 >200 gabapentin (NEURONTIN) 100 mg capsule 300 mg daily at bedtime aspirin, enteric coated (ASPIRIN, ENTERIC COATED) 81 mg EC tablet TAKE ONE TABLET BY MOUTH DAILY metoprolol succinate ER (TOPROL XL) 25 mg 24 hr tablet TAKE ONE TABLET BY MOUTH DAILY fluticasone (FLONASE) 50 mcg/actuation nasal spray Use 2 Sprays in each nostril once daily. omeprazole (PRILOSEC) 20 mg capsule Take 1 capsule by mouth twice daily. Diaper,Brief, Adult,Disposable (PREVAIL ADJUST UNDERWEAR SM- MD) misc 1 Each as needed. Dx: N36.0, K58.9 estradiol (CLIMARA) 0.025 mg/24 hr Apply 1 Patch as directed once each week. blood sugar diagnostic (ONETOUCH ULTRA TEST) test strip TEST BLOOD SUGAR 6 TO 8 TIMES DAILY Dx: E11.9 Insulin:yes Lancets lancets Use as instructed to test blood sugars 8 times daily E11.9 Blood-Glucose Meter (ONETOUCH ULTRA2) monitoring kit As directed pen needle, diabetic 33 gauge x 5/32 ndle 1 Each as directed. Use with injections 4x daily E11.9 amLODIPine (NORVASC) 5 mg tablet TAKE TWO TABLETS BY MOUTH DAILY QUEtiapine (SEROQUEL) 100 mg tablet Take 1 tablet by mouth twice daily. LANCETS REGULAR MISC 1 Each as directed. Use 6 x daily cholecalciferol, Vitamin D3, (VITAMIN D3) 50,000 unit cap capsule Take 1 capsule by mouth once each week. Take with your largest meal of the day Multivits,CalciumAND Minerals-FA 267 mcg tab Take 1 tablet by mouth twice daily. Centrum Adult Chewables MVI with minerals is preferred; must be chewable Blood Sugar Diagnostic, Disc strp 1 Each as directed. CHECK BLOOD GLUCOSE EIGHT TIMES PER DAY/ Current Facility-Administered Medications: denosumab 60 mg injection (PROLIA) 60 mg SUBCUTANEOUS Q 6 MONTH Allergies As of Date: 01/14/2018 Allergen Noted Reaction BACTRIM [SULFAMETHOXAZOLE] 08/13/2011 Other: See Comments CIPRO I.V. [CIPROFLOXACIN] 06/28/2006 Hives and Shortness of Breath DIMETAPP [PSEUDOEPHEDRINE-DM] 12/04/2005 Vomiting ERYTHROMYCIN 11/29/2005 KEFLEX [CEPHALEXIN] 11/29/2005 LATEX 11/29/2005 Rash TETRACYCLINE 02/05/2006 Fully Assessed 01/08/2018 REVIEW OF SYSTEMS Abdomen: No bloating, early satiety, indigestion, or increased flatulence. No abdominal pain, nausea, vomiting, diarrhea, or constipation. Bladder: No dysuria, gross hematuria, urinary frequency, urinary urgency, or incontinence. Expanded ROS: N/A Allergies and current medication updated:Yes EXAM: There were no vitals taken for this visit. GENERAL: pleasant, female in no apparent distress HEENT: Normocephalic, atraumatic, mucus membranes moist and no lesions CHEST: Normal inspiratory effort PELVIC: external genitalia normal, normal Bartholin's glands, urethra, [place]'s glands, physiologic discharge present, normal appearing perineal body and perianal region, cervix surgically absent, cystocele 2nd degree BIMANUAL: non-tender and uterus surgically absent NEURO: alert and oriented x3,exam grossly non-focal ASSESSMENT AND PLAN: Bladder prolapse Several pessaries tried with no success in achieving comfort for the pt Referral to Uro/Show Host/Hostess made Joie Morrow APRN.CNP [place] CBC AND DIFF Collected: 01/07/2018 Status: F Source: [place] 2:40 PM [facility] REPOSITORY TYPE CODE TESTS RESULT OUT OF REFERENCE UNITS RANGE LAB WWBC 3.70-11.00 k/uL [place] WBC 6.99 LAB WRBC 3.90-5.20 m/uL [place] RBC 4.19 LAB WHGB 11.5-15.5 g/dL [place] Hemoglobin 12.0 LAB WHCT 36.0-46.0 % [place] Hematocrit 36.3 LAB WMCV 80.0-100.0 fL [place] MCV 86.6 LAB WMCH 26.0-34.0 pg [place] MCH 28.6 LAB WMCHC 30.5-36.0 g/dL [place] MCHC 33.1 LAB WRDW 11.5-15.0 % [place] RDW 14.5 LAB WPLT 150-400 k/uL [place] Platelet Cnt 236 LAB WMPV 9.0-12.7 fL [place] MPV 9.8 Result Comment: Test performed by: [facility] [place], [address] [place] [address]. LAB WNEUT % [place] Neut% 72.8 LAB WLYMP % [place] Lymp% 20.2 LAB WMONOC % [place]% 4.4 LAB WEOS % [place] Eos% 2.3 LAB WBASO % [place] Baso% 0.3 LAB WANEUT 1.45-7.50 k/uL [place] Abs Neut 5.09 LAB WALYMP 1.00-4.00 k/uL [place] Abs Lymp 1.41 LAB WAMONO <0.87 k/uL [place] Abs [place] 0.31 LAB WAEOS <0.46 k/uL [place] Abs Eos 0.16 LAB WABASO <0.11 k/uL [place] Abs [place] <0.03 CREATININE Collected: 01/07/2018 Status: F Source: [place] [id number] PM [facility] REPOSITORY TYPE CODE TESTS RESULT OUT OF REFERENCE UNITS RANGE LAB CRET 0.58-0.96 mg/dL Creatinine 0.68 LAB GFRAA eGFR- >60 Amer. LAB GFRNAA . eGFR-All Other Races >60 Result Comment: eGFR (Estimated GFR) Units of measure: mL/min/1.73 meters squared eGFR is derived from the reexpressed MDRD Study equation using the following parameters: serum creatinine, age, gender and race. The creatinine assay has been calibrated to be traceable to IDMS. An eGFR <60 mL/min/1.73m2 for >3 months is consistent with chronic kidney disease. Refer to KDOQI guidelines for clinical interpretation. In patients with unstable renal function, e.g. those with acute kidney injury, the eGFR may not accurately reflect actual GFR. Performed By: #### CRET1 #### [facility] [address] [place], [place] [address] PROGRESS Observed: 01/07/2018 Status: COMPLETED Source: [place] 1:02 PM [facility] REPOSITORY HNO ID: [id number] Author: Sandra ([employer]) Podlogar Service: (none) Author Type: Nurse Practitioner Type: Progress Notes Filed: 01/08/2018 7:34 PM Note Text: 01/07/2018 Patient presents with: Abdominal Pain: and diarrhea for about a month and about 2 weeks ago felt something ripp in abdomin. has had hernisa surgery and feels it was thre mesh SUBJECTIVE: This is a 57 year old that is here today for Above Complaints. Approximately 2 weeks ago patient had diarrhea attack and felt something rip in lower abdominal area when she was going to bathroom. Reports she has new bulging in lower abdominal region. Patient believes it was her mesh from prior hernia surgery. Per patient reports she has had 54 major abdominal surgeries due to necrotizing fascitis. Reports she is having pain lower abdominal pain, non-radiating that is described as constant burning. Pain is aggravated by her chronic diarrhea. Has tried meloxicam and tylenol and anti-diarrheal medications with no relief. She does reports she has chronic abdominal pain since 2003. She is further reporting although she has chronic diarrhea with acute onset of explosive diarrhea up to five times a day over the last 2 weeks. Diarrhea is described as watery and brown, sometimes a pudding consistency. Reports no formed bowel movements in 2 months. Denies weight loss, fatigue, chills, SOB, dyspnea, chest pain, palpitations, nausea, vomiting, hematochezia, melena, mucous in stools, dysuria, urinary frequency, urgency, or hematuria. Eating and drinking without difficulty. Patient is also requesting refill for clonazepam and ambien for sleep. Reports she has been taking these for years and they work well for her her insomnia and anxiety. PAST MEDICAL HISTORY Diagnosis Date - Abdominal pain, generalized CHRONIC PAIN MANAGEMENT - Bacterial overgrowth syndrome - Bowel disease - Depressive disorder, not elsewhere classified on cymbalta - Diabetes mellitus (HCC) 1980s on insulin since 1982 - Fracture - GERD (gastroesophageal reflux disease) resolved since 2004 - HTN (hypertension) resolved since 2004 - Incisional hernia without mention of obstruction or gangrene - Irritable bowel syndrome - Necrotizing fasciitis (HCC) - Obesity, unspecified 05-23-10 STATED BMI 35.91 Ht: 70 Wt: 250 lbs - Open wound of abdominal wall, anterior, complicated 1 - PMH - PAST MEDICAL HISTORY OF irritable bowel syndrome, necrotizing fasciitis, hypertension, diabetes, GERD, gastritis, - PMH - PAST MEDICAL HISTORY OF 09/2009 left foot break - RSD lower limb seen by pain management ALLERGIES Bactrim [Sulfamethoxazole]; Cipro I.V. [Ciprofloxacin]; Dimetapp [Pseudoephedrine-Dm]; Erythromycin; Keflex [Cephalexin]; Latex; Tetracycline MEDICATIONS Current Outpatient Prescriptions: clonazePAM (KLONOPIN) 1 mg tablet Take 1 tablet by mouth daily at bedtime for 30 days. meloxicam (MOBIC) 15 mg tablet Take 1 tablet by mouth once daily. DULoxetine (CYMBALTA) 60 mg capsule Take 1 capsule by mouth daily at bedtime. losartan (COZAAR) 50 mg tablet Take 1 tablet by mouth once daily. insulin glargine (BASAGLAR KWIKPEN U-100 INSULIN) 100 unit/mL (3 mL) inpn 15 units sq each evening potassium chloride (K-TAB) 10 mEq tablet Take 1 tablet by mouth twice daily. insulin aspart U-100 (NOVOLOG) 100 unit/mL inpn 8 units before meals + 2 u per 50 >200 aspirin, enteric coated (ASPIRIN, ENTERIC COATED) 81 mg EC tablet TAKE ONE TABLET BY MOUTH DAILY metoprolol succinate ER (TOPROL XL) 25 mg 24 hr tablet TAKE ONE TABLET BY MOUTH DAILY omeprazole (PRILOSEC) 20 mg capsule Take 1 capsule by mouth twice daily. Diaper,Brief, Adult,Disposable (PREVAIL ADJUST UNDERWEAR SHABANA LARA) misc 1 Each as needed. Dx: N36.0, K58.9 blood sugar diagnostic (ONETOUCH ULTRA TEST) test strip TEST BLOOD SUGAR 6 TO 8 TIMES DAILY Dx: E11.9 Insulin:yes Lancets lancets Use as instructed to test blood sugars 8 times daily E11.9 Blood-Glucose Meter (Budding BiologistTOUCH ULTRA2) monitoring kit As directed pen needle, diabetic 33 gauge x 5/32 ndle 1 Each as directed. Use with injections 4x daily E11.9 amLODIPine (NORVASC) 5 mg tablet TAKE TWO TABLETS BY MOUTH DAILY QUEtiapine (SEROQUEL) 100 mg tablet Take 1 tablet by mouth twice daily. LANCETS REGULAR MISC 1 Each as directed. Use 6 x daily cholecalciferol, Vitamin D3, (VITAMIN D3) 50,000 unit cap capsule Take 1 capsule by mouth once each week. Take with your largest meal of the day Multivits,CalciumAND Minerals-FA 267 mcg tab Take 1 tablet by mouth twice daily. Centrum Adult Chewables MVI with minerals is preferred; must be chewable Blood Sugar Diagnostic, Disc strp 1 Each as directed. CHECK BLOOD GLUCOSE EIGHT TIMES PER DAY/ zolpidem (AMBIEN) 10 mg tab Take 1 tablet by mouth at bedtime as needed for up to 30 days. gabapentin (NEURONTIN) 100 mg capsule 300 mg daily at bedtime fluticasone (FLONASE) 50 mcg/actuation nasal spray Use 2 Sprays in each nostril once daily. estradiol (CLIMARA) 0.025 mg/24 hr Apply 1 Patch as directed once each week. No current facility-administered medications for this visit. Medications and allergies reviewed by this provider. SOCIAL HISTORY Social History Marital status: Spouse name: dalia Years of education: 13 Number of children: 4 Occupational History Occupation Employer Comment disabled Social History Main Topics Smoking status: Never Smoker Smokeless tobacco: Never Used Alcohol use: No Drug use: No Sexual activity: Yes Partners with: Male REVIEW OF SYSTEMS All other reviewed and negative other than HPI. OBJECTIVE: BP 120/62 (BP Site: Left Arm, BP Position: Sitting, BP Cuff Size: Large Adult) Pulse 64 Resp 18 Wt 102.5 kg (226 lb) BMI 32.90 kg/m? . Vital signs reviewed by this provider. APPEARANCE Well appearing, alert, in no acute distress, well-hydrated, well nourished. and Overweight HEART RRR with normal S1 and S2, no murmurs, no gallops, no JVD appreciated LUNG clear to auscultation. No wheezes, rhonchi, or rales ABDOMEN bowel sounds normoactive, no bruits, soft, non-distended. TTP over lower abdomen. Two small bulging areas to lower abdomen and one to suprapubic area on the right. Patient with extensive scarring form previous surgeries FEMALE Normal external genitalia. No vulvar lesions. No cervix on exam. Small bulging to right in vaginal canal with bearing down. SKIN Skin color, texture, turgor normal, no suspicious rashes or lesions to exposed skin ASSESSMENT/PLAN: 1. Diarrhea, unspecified type - ICD9: 787.91, ICD10: R19.7 (primary diagnosis) - acute on chronic - reports hx of c-diff - no red flag exam findings - red flag symptoms discussed, verbalizes understanding - C. DIFFICILE PCR - STOOL CULTURE/EIA - FECAL LACTOFERRIN/LEUKOCYTES - OCCULT BLD EXAM-DIAG - [place] CBC AND DIFF - follow-up pending stool studies 2. Insomnia, unspecified type - ICD9: 780.52, ICD10: G47.00 - stable on current regime PDMP website checked and validated. All prescriptions have been APPROPRIATELY filled. No suspicious activity was identified. 01/08/2018 by Sanrda Robertson APRN.WATER ATTENDANT - ZOLPIDEM 10 MG TABLET 3. Lower abdominal pain - ICD9: 789.09, ICD10: R10.30 - consider hernia reoccurrence consider inguinal hernia and mesh failure - patient with extensive abdominal surgical hx - CT ABD/PEL W IVCON - CREATININE BLD - follow-up pending testing 4. Female bladder prolapse - ICD9: 618.01, ICD10: N81.10 - consult to OB for opinion- possibly inguinal hernia - may need to see urology - no red flag exam findings - red flag symptoms discussed, verbalizes understanding - CONSULT TO CLOTH MERCERIZING SUPERVISOR 5. JONATHAN (generalized anxiety disorder) - ICD9: 300.02, ICD10: F41.1 - stable [facility] All prescriptions have been APPROPRIATELY filled. No suspicious activity was identified. 01/08/2018 by Sandra Robertson APRN.CNP - CLONAZEPAM 1 MG TABLET Sandra Robertson APRN.[facility] Prescription instructions reviewed with patient as applicable. Patient advised if symptoms do not improve or if symptoms worsen sooner, to contact their primary care physician. Potential red flag symptoms discussed with the patient. Reviewed appropriate action plan to take if red flag symptoms occur. Patient agreeable to treatment plan. CNOV Observed: 01/07/2018 Status: COMPLETED Source: [place] 1:00 PM [facility] REPOSITORY [facility] ADRI GOYAL ([id number]) 1960 F TPN Date Time Provider Department 01/07/18 1:00 PM SANDRA ROBERTSON (KIRT) [place] During your visit today, we recorded the following information about you: Pulse Respiration Blood pressure Weight 64/minute 18/minute 120/62 102.5 kg Sandra Robertson APRN.CNP 01/08/2018 7:34 PM Signed 01/07/2018 Patient presents with: Abdominal Pain: and diarrhea for about a month and about 2 weeks ago felt something ripp in abdomin. has had hernisa surgery and feels it was thre mesh SUBJECTIVE: This is a 57 year old that is here today for Above Complaints. Approximately 2 weeks ago patient had diarrhea attack and felt something rip in lower abdominal area when she was going to bathroom. Reports she has new bulging in lower abdominal region. Patient believes it was her mesh from prior hernia surgery. Per patient reports she has had 54 major abdominal surgeries due to necrotizing fascitis. Reports she is having pain lower abdominal pain, non-radiating that is described as constant burning. Pain is aggravated by her chronic diarrhea. Has tried meloxicam and tylenol and anti-diarrheal medications with no relief. She does reports she has chronic abdominal pain since 2003. She is further reporting although she has chronic diarrhea with acute onset of explosive diarrhea up to five times a day over the last 2 weeks. Diarrhea is described as watery and brown, sometimes a pudding consistency. Reports no formed bowel movements in 2 months. Denies weight loss, fatigue, chills, SOB, dyspnea, chest pain, palpitations, nausea, vomiting, hematochezia, melena, mucous in stools, dysuria, urinary frequency, urgency, or hematuria. Eating and drinking without difficulty. Patient is also requesting refill for clonazepam and ambien for sleep. Reports she has been taking these for years and they work well for her her insomnia and anxiety. PAST MEDICAL HISTORY Diagnosis Date - Abdominal pain, generalized CHRONIC PAIN MANAGEMENT - Bacterial overgrowth syndrome - Bowel disease - Depressive disorder, not elsewhere classified on cymbalta - Diabetes mellitus (HCC) 1980s on insulin since 1982 - Fracture - GERD (gastroesophageal reflux disease) resolved since 2004 - HTN (hypertension) resolved since 2004 - Incisional hernia without mention of obstruction or gangrene - Irritable bowel syndrome - Necrotizing fasciitis (HCC) - Obesity, unspecified 05-23-10 STATED BMI 35.91 Ht: 70 Wt: 250 lbs - Open wound of abdominal wall, anterior, complicated 1 - PMH - PAST MEDICAL HISTORY OF irritable bowel syndrome, necrotizing fasciitis, hypertension, diabetes, GERD, gastritis, - PMH - PAST MEDICAL HISTORY OF 09/2009 left foot break - RSD lower limb seen by pain management ALLERGIES Bactrim [Sulfamethoxazole]; Cipro I.V. [Ciprofloxacin]; Dimetapp [Pseudoephedrine-Dm]; Erythromycin; Keflex [Cephalexin]; Latex; Tetracycline MEDICATIONS Current Outpatient Prescriptions: clonazePAM (KLONOPIN) 1 mg tablet Take 1 tablet by mouth daily at bedtime for 30 days. meloxicam (MOBIC) 15 mg tablet Take 1 tablet by mouth once daily. DULoxetine (CYMBALTA) 60 mg capsule Take 1 capsule by mouth daily at bedtime. losartan (COZAAR) 50 mg tablet Take 1 tablet by mouth once daily. insulin glargine (BASAGLAR KWIKPEN U-100 INSULIN) 100 unit/mL (3 mL) inpn 15 units sq each evening potassium chloride (K-TAB) 10 mEq tablet Take 1 tablet by mouth twice daily. insulin aspart U-100 (NOVOLOG) 100 unit/mL inpn 8 units before meals + 2 u per 50 >200 aspirin, enteric coated (ASPIRIN, ENTERIC COATED) 81 mg EC tablet TAKE ONE TABLET BY MOUTH DAILY metoprolol succinate ER (TOPROL XL) 25 mg 24 hr tablet TAKE ONE TABLET BY MOUTH DAILY omeprazole (PRILOSEC) 20 mg capsule Take 1 capsule by mouth twice daily. Diaper,Brief, Adult,Disposable (PREVAIL ADJUST UNDERWEAR SHABANA LARA) misc 1 Each as needed. Dx: N36.0, K58.9 blood sugar diagnostic (ONETOUCH ULTRA TEST) test strip TEST BLOOD SUGAR 6 TO 8 TIMES DAILY Dx: E11.9 Insulin:yes Lancets lancets Use as instructed to test blood sugars 8 times daily E11.9 Blood-Glucose Meter (ONETOUCH ULTRA2) monitoring kit As directed pen needle, diabetic 33 gauge x 5/32 ndle 1 Each as directed. Use with injections 4x daily E11.9 amLODIPine (NORVASC) 5 mg tablet TAKE TWO TABLETS BY MOUTH DAILY QUEtiapine (SEROQUEL) 100 mg tablet Take 1 tablet by mouth twice daily. LANCETS REGULAR MISC 1 Each as directed. Use 6 x daily cholecalciferol, Vitamin D3, (VITAMIN D3) 50,000 unit cap capsule Take 1 capsule by mouth once each week. Take with your largest meal of the day Multivits,CalciumAND Minerals-FA 267 mcg tab Take 1 tablet by mouth twice daily. Centrum Adult Chewables MVI with minerals is preferred; must be chewable Blood Sugar Diagnostic, Disc strp 1 Each as directed. CHECK BLOOD GLUCOSE EIGHT TIMES PER DAY/ zolpidem (AMBIEN) 10 mg tab Take 1 tablet by mouth at bedtime as needed for up to 30 days. gabapentin (NEURONTIN) 100 mg capsule 300 mg daily at bedtime fluticasone (FLONASE) 50 mcg/actuation nasal spray Use 2 Sprays in each nostril once daily. estradiol (CLIMARA) 0.025 mg/24 hr Apply 1 Patch as directed once each week. No current facility-administered medications for this visit. Medications and allergies reviewed by this provider. SOCIAL HISTORY Social History Marital status: Spouse name: dalia Years of education: 13 Number of children: 4 Occupational History Occupation Employer Comment disabled Social History Main Topics Smoking status: Never Smoker Smokeless tobacco: Never Used Alcohol use: No Drug use: No Sexual activity: Yes Partners with: Male REVIEW OF SYSTEMS All other reviewed and negative other than HPI. OBJECTIVE: BP 120/62 (BP Site: Left Arm, BP Position: Sitting, BP Cuff Size: Large Adult) Pulse 64 Resp 18 Wt 102.5 kg (226 lb) BMI 32.90 kg/m? . Vital signs reviewed by this provider. APPEARANCE Well appearing, alert, in no acute distress, well- hydrated, well nourished. and Overweight HEART RRR with normal S1 and S2, no murmurs, no gallops, no JVD appreciated LUNG clear to auscultation. No wheezes, rhonchi, or rales ABDOMEN bowel sounds normoactive, no bruits, soft, non-distended. TTP over lower abdomen. Two small bulging areas to lower abdomen and one to suprapubic area on the right. Patient with extensive scarring form previous surgeries FEMALE Normal external genitalia. No vulvar lesions. No cervix on exam. Small bulging to right in vaginal canal with bearing down. SKIN Skin color, texture, turgor normal, no suspicious rashes or lesions to exposed skin ASSESSMENT/PLAN: 1. Diarrhea, unspecified type - ICD9: 787.91, ICD10: R19.7 (primary diagnosis) - acute on chronic - reports hx of c-diff - no red flag exam findings - red flag symptoms discussed, verbalizes understanding - C. DIFFICILE PCR - STOOL CULTURE/EIA - FECAL LACTOFERRIN/LEUKOCYTES - OCCULT BLD EXAM-DIAG - [place] CBC AND DIFF - follow-up pending stool studies 2. Insomnia, unspecified type - ICD9: 780.52, ICD10: G47.00 - stable on current regime PDMP website checked and validated. All prescriptions have been APPROPRIATELY filled. No suspicious activity was identified. 01/08/2018 by Sandra Robertson APRN.WATER ATTENDANT - ZOLPIDEM 10 MG TABLET 3. Lower abdominal pain - ICD9: 789.09, ICD10: R10.30 - consider hernia reoccurrence consider inguinal hernia and mesh failure - patient with extensive abdominal surgical hx - CT ABD/PEL W IVCON - CREATININE BLD - follow-up pending testing 4. Female bladder prolapse - ICD9: 618.01, ICD10: N81.10 - consult to OB for opinion- possibly inguinal hernia - may need to see urology - no red flag exam findings - red flag symptoms discussed, verbalizes understanding - CONSULT TO CLOTH MERCERIZING SUPERVISOR 5. JONATHAN (generalized anxiety disorder) - ICD9: 300.02, ICD10: F41.1 - stable on current regime PDMP website checked and validated. All prescriptions have been APPROPRIATELY filled. No suspicious activity was identified. 01/08/2018 by Sandra Robertson APRN.CNP - CLONAZEPAM 1 MG TABLET Sandra Robertson APRN.CNP Prescription instructions reviewed with patient as applicable. Patient advised if symptoms do not improve or if symptoms worsen sooner, to contact their primary care physician. Potential red flag symptoms discussed with the patient. Reviewed appropriate action plan to take if red flag symptoms occur. Patient agreeable to treatment plan. Sandra Robertson APRN.CNP 01/07/2018 1:55 PM Signed If you develop fever, sever abdominal pain, Shortness of breath, chest pain, no urinary out put go to ER Referring Provider: SELF [[id number]] Allergies As of Date: 01/07/2018 Noted Allergy Reaction BACTRIM (SULFAMETHOXAZOLE) 08/13/2011 14 - Other: See Comments Comments: Cardiac issues, CIPRO IV only CIPRO I.V. (CIPROFLOXACIN) 06/28/2006 4 - Hives 12 - Shortness of Breath DIMETAPP (PSEUDOEPHEDRINE-DM) 12/04/2005 11 - Vomiting Comments: violently ill when overdosed on it as child ERYTHROMYCIN 11/29/2005 Comments: hives ok with zithromax KEFLEX (CEPHALEXIN) 11/29/2005 Comments: OK to give zosyn per MD 1-12-07 LATEX 11/29/2005 2 - Rash Comments: rash, breaks out everywhere, n/v , feels weak Can still eat food that is considered for latex allergies No allergic to latex foods per patient isaak 05/07/11 TETRACYCLINE 02/05/2006 Comments: hives Date Reviewed: 01/07/2018 Reviewed by: Sylwia Ramsay LPN - Fully Assessed Reason for Visit: Abdominal Pain [1] Cmt: and diarrhea for about a month and about 2 weeks ago felt something ripp in abdomin. has had hernisa surgery and feels it was thre mesh Primary Visit Diagnosis:Diarrhea, unspecified type [R19.7] Other Visit Diagnoses:Insomnia, unspecified type [G47.00] Lower abdominal pain [R10.30] Female bladder prolapse [N81.10] JONATHAN (generalized anxiety disorder) [F41.1] Order(s):clonazePAM (KLONOPIN) 1 mg tabletTake 1 tablet by mouth daily at bedtime for 30 days.Disp: 30 tabletRfl: 0 meloxicam (MOBIC) 15 mg tabletTake 1 tablet by mouth once daily.Disp: 30 tabletRfl: 0 zolpidem (AMBIEN) 10 mg tabTake 1 tablet by mouth at bedtime as needed for up to 30 days.Disp: 30 tabletRfl: 2 CT ABD/PEL W IVCON [[id number]] Order #: [id number] FUTURE iv contrast (will be provided with radiology test)CT ABD/PEL -Inject, intravenously, once for 1 dose.No IV access, insert saline lock prior to the beginning of sedation, infusion, injection of imaging exam. Discontinue saline lock post exam. If Pt. has a central line or IVAD, may access for administration according to line specific nursing protocol. Once exam is complete flush line and de- access according to line specific nursing protocol in the CT contrast administration guidelines link.Disp: 1 EachRfl: 0 enteric contrast (will be provided with radiology test)For CT ABD/PEL W IVCON Routine order Administer, As Directed One Time Only, via Oral, Rectal, both Oral and Rectal, Enteric Tube, Stoma or Indwelling Catheter, Enteric Contrast as designated per enteric contrast guidelinesDisp: 1 EachRfl: 0 CREATININE BLD [SQCRET] Order #: [id number] FUTURE C. DIFFICILE PCR [SQCDPCR] Order #: [id number] STOOL CULTURE/EIA [SQSTOCUL] Order #: [id number] FUTURE FECAL LACTOFERRIN/LEUKOCYTES [SQFECWBC] Order #: [id number] OCCULT BLD EXAM-DIAG [SQOB] Order #: [id number] CONSULT TO CLOTH MERCERIZING SUPERVISOR [9021] Order #: [id number]: 1 MARCELLA CBC AND DIFF [SQWCBCDF] Order #: [id number] FUTURE Prescriptions as of 01/07/2018 Sig: CLONAZEPAM 1 MG TABLET Take 1 tablet by mouth daily * MELOXICAM 15 MG TABLET Take 1 tablet by mouth once d* DULOXETINE 60 MG CAPSULE,JAG* Take 1 capsule by mouth daily* LOSARTAN 50 MG TABLET Take 1 tablet by mouth once d* INSULIN GLARGINE (U-100) 100 * 15 units sq each evening POTASSIUM CHLORIDE ER 10 MEQ * Take 1 tablet by mouth twice * INSULIN ASPART U-100 100 UNI* 8 units before meals + 2 u pe* ASPIRIN 81 MG TABLET,DELAYED * TAKE ONE TABLET BY MOUTH DAILY METOPROLOL SUCCINATE ER 25 MG* TAKE ONE TABLET BY MOUTH DAILY OMEPRAZOLE 20 MG CAPSULE,JAG* Take 1 capsule by mouth twice* DIAPER,BRIEF,ADULT,DISPOSABLE 1 Each as needed. Dx: N36.0,* BLOOD SUGAR DIAGNOSTIC STRIPS TEST BLOOD SUGAR 6 TO 8 TIMES* LANCETS Use as instructed to test blo* BLOOD-GLUCOSE METER KIT As directed PEN NEEDLE, DIABETIC 33 GAUGE* 1 Each as directed. Use with * AMLODIPINE 5 MG TABLET TAKE TWO TABLETS BY MOUTH WILIAN* QUETIAPINE 100 MG TABLET Take 1 tablet by mouth twice * LANCETS REGULAR MISC 1 Each as directed. Use 6 x d* CHOLECALCIFEROL (VITAMIN D3) * Take 1 capsule by mouth once * MULTIVITAMIN WITH CALCIUM AND* Take 1 tablet by mouth twice * BLOOD SUGAR DIAGNOSTIC, DISC * 1 Each as directed. 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 Essential Hypertension, Benign [I10] INVALID FOR* More... Hyperpotassemia [E87.5] INVALID FOR*04/15/2017 Abdominal pain, left lower quadrant [R10.32] INVALID FOR*04/15/2017 Abdominal pain, right lower quadrant [R10.31] INVALID FOR*04/15/2017 Abdominal Pain, Generalized [R10.84] INVALID FOR* HTN (hypertension) [I10] 04/15/2017 More... GERD (Gastroesophageal Reflux Disease) [K21.9] More... Irritable Bowel Syndrome [K58.9] RSD lower limb [G90.529] 04/15/2017 Open wound of abdominal wall, anterior, complic* 04/15/2017 Depressive disorder, not elsewhere classified [* More... Morbid obesity (HCC) [E66.01] INVALID FOR*12/25/2016 Dietary surveillance and counseling [Z71.3] INVALID FOR*04/15/2017 Gastric bypass status for obesity [Z98.84] INVALID FOR*04/15/2017 More... Nausea AND vomiting [R11.2] INVALID FOR*04/15/2017 Other and unspecified postsurgical nonabsorptio*INVALID FOR*04/15/2017 Osteoporosis [M81.0] INVALID FOR*08/20/2013 On total parenteral nutrition (TPN) [Z78.9] INVALID FOR*04/15/2017 Malabsorption [K90.9] INVALID FOR* Fracture [T14.8XXA] INVALID FOR*04/15/2017 Hernia of abdominal wall [K43.9] INVALID FOR* H/O hyperglycemia [Z86.39] INVALID FOR*04/15/2017 Diarrhea [R19.7] INVALID FOR* Insomnia [G47.00] INVALID FOR* More... Diabetic neuropathy, painful (HCC) [E11.40] INVALID FOR* More... DM (diabetes mellitus) (HCC) [E11.9] INVALID FOR* More... Unspecified intestinal malabsorption [K90.9] INVALID FOR* More... Osteoporosis [M81.0] INVALID FOR* More... Vitamin D deficiency [E55.9] INVALID FOR* More... Post-operative state [Z98.890] INVALID FOR*04/15/2017 Obesity (BMI 30.0-34.9) [E66.9] INVALID FOR* More... Chronic pain in right shoulder [M25.511, G89.29]INVALID FOR* More... Impingement syndrome of right shoulder [M75.41] INVALID FOR* More... Migraines [G43.909] INVALID FOR* DDD (degenerative disc disease), lumbar [M51.36]INVALID FOR* Acute pain of right shoulder [M25.511] INVALID FOR* Other instructions from your clinician: If you develop fever, sever abdominal pain, Shortness of breath, chest pain, no urinary out put go to ER Prescriptions ordered this encounter Disp Refills Start End CLONAZEPAM 1 MG TABLET 30 t* 0 01/07/2018 02/06/2018 Class: Print RX Route: ORAL Sig: Take 1 tablet by mouth daily at bedtime for 30 days. MELOXICAM 15 MG TABLET 30 t* 0 01/07/2018 Class: Print RX Route: ORAL Sig: Take 1 tablet by mouth once daily. ZOLPIDEM 10 MG TABLET 30 t* 2 01/07/2018 02/06/2018 Class: Print RX Route: ORAL Sig: Take 1 tablet by mouth at bedtime as needed for up to 30 days. IV CONTRAST (RADIOLOGY PROCEDURE) 1 Ea* 0 01/07/2018 01/08/2018 Class: In Office Sig: CT ABD/PEL -Inject, intravenously, once for 1 dose.No IV access, insert saline lock prior to the beginning of sedation, infusion, injection of imaging exam. Discontinue saline lock post exam. If Pt. has a central line or IVAD, may access for administration according to line specific nursing protocol. Once exam is complete flush line and de-access according to line specific nursing protocol in the CT contrast administration guidelines link. ENTERIC CONTRAST (RADIOLOGY PROCEDUR* 1 Ea* 0 01/07/2018 01/08/2018 Class: In Office Sig: For CT ABD/PEL W IVCON Routine order Administer, As Directed One Time Only, via Oral, Rectal, both Oral and Rectal, Enteric Tube, Stoma or Indwelling Catheter, Enteric Contrast as designated per enteric contrast guidelines Medications Discontinued During This Encounter clonazePAM (KLONOPIN) 1 mg tablet 30 t* 0 12/05/2017 01/07/2018 Class: Print RX Route: ORAL Sig: Take 1 tablet by mouth daily at bedtime for 30 days. Disc: Reason for discontinue is not on file. meloxicam (MOBIC) 15 mg tablet 30 t* 0 12/05/2017 01/07/2018 Route: ORAL Sig: Take 1 tablet by mouth once daily. Disc: Reason for discontinue is not on file. zolpidem (AMBIEN) 10 mg tab 30 t* 2 10/18/2017 01/07/2018 Class: Print RX Route: ORAL Sig: Take 1 tablet by mouth at bedtime as needed for up to 30 days. Disc: Reason for discontinue is not on file. LOS history recorded Follow-up and Disposition History Recorded Encounter Status:Closed by SANDRA ROBERTOSN CNP on 01/08/18 EMERGENCY REPORT Observed: 11/21/2017 Status: F Source: [facility] AN 10:06 AM [facility] [place] EMERGENCY ROOM REPORT NAME ACCOUNT SEX AGE ADMIT DISCHARGE PT MED. RECORD# NUMBER DATE DATE TYPE ADRI GOYAL [id number] F 57 11/19/17 11/19/17 3 D [id number] ROOM: ER DATE OF : 1960 DICTATING PHYSICIAN: Dalia Ortega TIME SEEN: 5:20 p.m. CHIEF COMPLAINT/HISTORY OF PRESENT ILLNESS: This is a 57-year-old white female complaining of pain, swelling, and ecchymosis to 2nd digit left foot after she accidentally kicked a threshold between the linoleum and carpet. She was walking in bare feet. She is a diabetic so she was concerned when she saw the toe becoming swollen. PAST MEDICAL HISTORY: Lzq-ysfagys-ucodvtmit diabetes. 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 She also has a history of hypertension and osteoporosis. PAST SURGICAL HISTORY: Includes hysterectomy, tonsillectomy, colostomy reversal, shoulder surgery. She sees Dr. Riley for her shoulder surgery. ALLERGIES: Keflex, tetracycline, Augmentin, latex, Cipro, Dimetapp. SOCIAL HISTORY: She is not a smoker, denies any use of alcohol. She lives at home with her family. REVIEW OF SYSTEMS: The patient denies any chest pain, shortness of breath, cough, sputum, wheezing, abdominal pain, nausea, vomiting, diarrhea, constipation, melena, hematochezia, headache, numbness, unsteady gait, weakness, neck or back pain. Does complain of left 2nd toe pain, swelling, and discoloration. Further review of systems is negative. PHYSICAL EXAMINATION: Blood pressure 145/80, pulse 93, respirations 18, temperature 97.0, pulse oximetry 93%. Patient is alert and oriented x 3. She appears in some mild distress secondary to toe pain but she is pleasant and cooperative. HEENT: Head appears atraumatic. Pupils are equal and reactive to light. Red reflex is intact bilaterally. Extraocular muscles are intact. No conjunctival injection. Nose exhibits no rhinorrhea or epistaxis. Mouth: Mucous membranes are moist. No pharyngeal erythema. Uvula is midline and elevates. Neck is supple with trachea midline. No JVD or lymphadenopathy. No posterior cervical tenderness. No nuchal rigidity. Lungs are clear to auscultation in all lung mullen. No adventitious sounds noted. No accessory muscle use. CVS: Heart rate and rhythm regular without Page 1 of 2 ADRI GOYAL Emergency Room Report murmur. Abdomen is soft, obese, and nontender with normoactive bowel sounds x4 quadrants. No guarding or rigidity. No rebound. No palpable abdominal mass. No hepatosplenomegaly. Back exhibits no midline or paraspinal region tenderness. No increased paraspinal muscle rigidity. Negative Oneal's sign. Extremities: Focal exam of the 2nd toe left foot does show swelling and ecchymosis with associated tenderness to the distal phalanx region of the left 2nd toe. She does have good sensation to light touch of all digits of the left foot. She has a good intact left dorsalis pedis pulse and capillary refill is less than 2 seconds. There is some decreased range of motion to the affected digit with flexion and extension due to pain with movement but I note no crepitus. There is no open skin abrasion or laceration. No erythema. No discharge. No lymphangitic streaking. Patient is alert and oriented x4. No motor or sensory deficits are noted. Normal speech. Skin is warm and dry. No diaphoresis or rash. Patient is pleasant and cooperative with normal affect. DIAGNOSTIC DATA: X-rays obtained of the left foot showed a nondisplaced transverse fracture at the base of the distal phalanx of the 2nd digit. Soft tissue swelling of the 2nd digit is noted. No joint effusion. No foreign body. EMERGENCY DEPARTMENT COURSE AND TREATMENT: Patient was placed in a postop shoe and given naren-taping of the 1st and 2nd digits of the left foot. DIAGNOSIS: Acute fracture distal phalanx left second toe. PLAN/DISPOSITION: Since she does have an orthopedic doctor, I asked her to follow up with Dr. Riley. She can call his office tomorrow to arrange followup. Since she has had problems with infections in the past, I placed her on Clindamycin 150 mg 1 p.o. q6 hours dispense #30 with no refill. She can weight bear but only as tolerated, otherwise use crutches. The patient was discharged in a clinically stable condition. Nurses notes were reviewed . Dictated By: Dalia Ortega DO 11/19/17 17:54 JOB #: [id number] Transcribed By: aicha 11/19/17 21:19 Electronically signed by: E-Sign: Dr. Dalia Ortega D.O. 11/21/17 10:06 Page 2 of 2 JAY JAY, ADRI D Emergency Room Report TOES LT Observed: 11/19/2017 Status: F Source: [facility] 3:18 PM [place] [id number] Patient: ADRI GOYAL. Phone#: : [phone] Age: 57 Gender: F Pt. Type: ER Account: [id number] Location: 2 Ordering: DALIA ORTEGA Exam Date: 11/19/2017/15:06 Family Phys: LEON JIMENEZ Charge Code: [id number] Physician: Cass Order #: [id number] DLP Dose#: PROCEDURE: X-RAY TOES LT MIN 2 VIEWS COMPARISON: None. INDICATIONS: Toe injury FINDINGS: BONES: Nondisplaced transverse fracture at the base of the distal phalanx of the second digit is present. The joints are maintained. SOFT TISSUES: Soft tissue swelling of the second digit is present. EFFUSION: None visible. OTHER: Negative. CONCLUSION: 1. Nondisplaced fracture at the base of the distal phalanx of the second digit. Dictated by: Ashley Ross MD on 11/19/2017 at 15:31 Approved by: Ashley Ross MD on 11/19/2017 at 15:31 CNNURSE Observed: 11/08/2017 Status: COMPLETED Source: [place] 1:15 PM [facility] Nurse Visit (FAMPWS) ADRI GOYAL ([id number]) 1960 F TPN Date Time Provider Department 11/08/17 1:15 PM [facility] During your visit today, we recorded the following information about you: Pulse Blood pressure 92/minute 116/74 Matilda Beaver LPN 11/08/2017 1:15 PM Signed Manual Readin/74 Pulse: 92 Reason for blood pressure check - Last BP elevated and Medication adjustment Patient is: Taking medication as prescribed Yes Took medication today Yes If no, date medication last taken N/A Experiencing side effects No BP was elevated at last appt 10/18/17. Losartan was increased to 50mg daily. Tolerating medication change well. Denies any chest pain, shortness of breath, dizziness, or headaches. Daily caffeine use. No personal history of tobacco use; no current exposure. Alert and oriented. Pt has been identified by name and birthdate: Yes Allergies reviewed: Yes Latex allergy: no. Medication - prescribed and OTC reviewed and updated: Yes Do you need any prescription refills prior to your next visit: No Health Maintenance: Reviewed and not up to date and provider notified Patient advised to continue with current medications and would be contacted with any further instructions after review by PCP. Matilda Beaver LPN Referring Provider: SELF [[id number]] Allergies As of Date: 11/08/2017 Noted Allergy Reaction BACTRIM (SULFAMETHOXAZOLE) 08/13/2011 14 - Other: See Comments Comments: Cardiac issues, CIPRO IV only CIPRO I.V. (CIPROFLOXACIN) 06/28/2006 4 - Hives 12 - Shortness of Breath DIMETAPP (PSEUDOEPHEDRINE-DM) 12/04/2005 11 - Vomiting Comments: violently ill when overdosed on it as child ERYTHROMYCIN 11/29/2005 Comments: hives ok with zithromax KEFLEX (CEPHALEXIN) 11/29/2005 Comments: OK to give zosyn per MD 1-12- LATEX 11/29/2005 2 - Rash Comments: rash, breaks out everywhere, n/v , feels weak Can still eat food that is considered for latex allergies No allergic to latex foods per patient isaak 05/07/11 TETRACYCLINE 02/05/2006 Comments: hives Date Reviewed: 10/18/2017 Reviewed by: Ana Luisa Talley Ma - Fully Assessed Reason for Visit: Blood Pressure Check [195] Primary Visit Diagnosis:Essential hypertension, benign [I10] Prescriptions as of 11/08/2017 Sig: DULOXETINE 60 MG CAPSULE,JAG* Take 1 capsule by mouth daily* ZOLPIDEM 10 MG TABLET Take 1 tablet by mouth at bed* LOSARTAN 50 MG TABLET Take 1 tablet by mouth once d* INSULIN GLARGINE (U-100) 100 * 15 units sq each evening POTASSIUM CHLORIDE ER 10 MEQ * Take 1 tablet by mouth twice * INSULIN ASPART U-100 100 UNI* 8 units before meals + 2 u pe* GABAPENTIN 100 MG CAPSULE 300 mg daily at bedtime CLONAZEPAM 1 MG TABLET Take 1 tablet by mouth daily * MELOXICAM 15 MG TABLET Take 1 tablet by mouth once d* ASPIRIN 81 MG TABLET,DELAYED * TAKE ONE TABLET BY MOUTH DAILY METOPROLOL SUCCINATE ER 25 MG* TAKE ONE TABLET BY MOUTH DAILY FLUTICASONE 50 MCG/ACTUATION * Use 2 Sprays in each nostril * OMEPRAZOLE 20 MG CAPSULE,JAG* Take 1 capsule by mouth twice* DIAPER,BRIEF,ADULT,DISPOSABLE 1 Each as needed. Dx: N36.0,* BLOOD SUGAR DIAGNOSTIC STRIPS TEST BLOOD SUGAR 6 TO 8 TIMES* LANCETS Use as instructed to test blo* BLOOD-GLUCOSE METER KIT As directed PEN NEEDLE, DIABETIC 33 GAUGE* 1 Each as directed. Use with * AMLODIPINE 5 MG TABLET TAKE TWO TABLETS BY MOUTH WILIAN* QUETIAPINE 100 MG TABLET Take 1 tablet by mouth twice * LANCETS REGULAR MISC 1 Each as directed. Use 6 x d* CHOLECALCIFEROL (VITAMIN D3) * Take 1 capsule by mouth once * MULTIVITAMIN WITH CALCIUM AND* Take 1 tablet by mouth twice * BLOOD SUGAR DIAGNOSTIC, DISC * 1 Each as directed. 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 Essential Hypertension, Benign [I10] INVALID FOR* More... Hyperpotassemia [E87.5] INVALID FOR*04/15/2017 Abdominal pain, left lower quadrant [R10.32] INVALID FOR*04/15/2017 Abdominal pain, right lower quadrant [R10.31] INVALID FOR*04/15/2017 Abdominal Pain, Generalized [R10.84] INVALID FOR* HTN (hypertension) [I10] 04/15/2017 More... GERD (Gastroesophageal Reflux Disease) [K21.9] More... Irritable Bowel Syndrome [K58.9] RSD lower limb [G90.529] 04/15/2017 Open wound of abdominal wall, anterior, complic* 04/15/2017 Depressive disorder, not elsewhere classified [* More... Morbid obesity (HCC) [E66.01] INVALID FOR*12/25/2016 Dietary surveillance and counseling [Z71.3] INVALID FOR*04/15/2017 Gastric bypass status for obesity [Z98.84] INVALID FOR*04/15/2017 More... Nausea AND vomiting [R11.2] INVALID FOR*04/15/2017 Other and unspecified postsurgical nonabsorptio*INVALID FOR*04/15/2017 Osteoporosis [M81.0] INVALID FOR*08/20/2013 On total parenteral nutrition (TPN) [Z78.9] INVALID FOR*04/15/2017 Malabsorption [K90.9] INVALID FOR* Fracture [T14.8XXA] INVALID FOR*04/15/2017 Hernia of abdominal wall [K43.9] INVALID FOR* H/O hyperglycemia [Z86.39] INVALID FOR*04/15/2017 Diarrhea [R19.7] INVALID FOR* Insomnia [G47.00] INVALID FOR* More... Diabetic neuropathy, painful (HCC) [E11.40] INVALID FOR* More... DM (diabetes mellitus) (HCC) [E11.9] INVALID FOR* More... Unspecified intestinal malabsorption [K90.9] INVALID FOR* More... Osteoporosis [M81.0] INVALID FOR* More... Vitamin D deficiency [E55.9] INVALID FOR* More... Post-operative state [Z98.890] INVALID FOR*04/15/2017 Obesity (BMI 30.0-34.9) [E66.9] INVALID FOR* More... Chronic pain in right shoulder [M25.511, G89.29]INVALID FOR* More... Impingement syndrome of right shoulder [M75.41] INVALID FOR* More... Migraines [G43.909] INVALID FOR* DDD (degenerative disc disease), lumbar [M51.36]INVALID FOR* Acute pain of right shoulder [M25.511] INVALID FOR* Encounter Status:Closed by MATILDA BEAVER LPN on 11/08/17 PROGRESS Observed: 11/08/2017 Status: COMPLETED Source: [place] 1:10 PM [facility] HNO ID: [id number] Author: Matilda Beaver LPN Service: (none) Author Type: (none) Type: Progress Notes Filed: 11/08/2017 1:15 PM Note Text: Manual Readin/74 Pulse: 92 Reason for blood pressure check - Last BP elevated and Medication adjustment Patient is: Taking medication as prescribed Yes Took medication today Yes If no, date medication last taken N/A Experiencing side effects No BP was elevated at last appt 10/18/17. Losartan was increased to 50mg daily. Tolerating medication change well. Denies any chest pain, shortness of breath, dizziness, or headaches. Daily caffeine use. No personal history of tobacco use; no current exposure. Alert and oriented. Pt has been identified by name and birthdate: Yes Allergies reviewed: Yes Latex allergy: no. Medication - prescribed and OTC reviewed and updated: Yes Do you need any prescription refills prior to your next visit: No Health Maintenance: Reviewed and not up to date and provider notified Patient advised to continue with current medications and would be contacted with any further instructions after review by PCP. Matilda Beaver LPN CNOV Observed: 10/18/2017 Status: COMPLETED Source: [place] 2:00 PM [facility] Office Visit (INTMWS) ADRI GOYAL ([id number]) 1960 F TPN Date Time Provider Department 10/18/17 2:00 PM IBRAHIMA SARKAR ([facility]) INTMWS During your visit today, we recorded the following information about you: Temperature Pulse Respiration Blood pressure 97.1 degrees 96/minute 16/minute 138/86 Weight 100.7 kg Ibrahima Sarkar ([facility]) 10/18/2017 2:21 PM Signed CC: Patient presents with: Weight Problem: 1 month follow up Blood Pressure: follow up HPI Adri Goyal is a 57 year old female who presents today for BP follow up and weight check after completing 3 months of Adipex. Weight is unchanged since starting Adipex. However patient states she notices a difference in her midsection and she is down a pant size. She recently met with the dietitian and started a high protein diet ~2 days ago. HTN: Ms. Goyal indicates that she is feeling well and denies any symptoms referable to elevated blood pressure. Specifically denies headache, chest pain, palpitations, dyspnea and peripheral edema. Patient denies any side effects of her medication(s) and is compliant with their regimen. She does check BP's away from this office with average BP's in the 130/80s range. Adri works out regularly times per week with . Started protein sparing diet with the help of . Last 3 Encounter BP Readings: Date: BP: 10/15/2017 151/86 09/19/2017 118/72 08/19/2017 118/70 REVIEW OF SYSTEMS General: no fevers, no chills, no recurrent infections, no change in appetite, no change in energy and no significant changes in weight Respiratory: no cough, no wheezing, no shortness of breath, no hemoptysis Cardiovascular: no chest pain, no chest pressure, no palpitations and no swelling Neurologic: No headache, weakness, numbness, tingling, neck stiffness, tremor, vertigo, dizziness, memory loss, syncope. PAST MEDICAL HISTORY Diagnosis Date - Abdominal pain, generalized CHRONIC PAIN MANAGEMENT - Bacterial overgrowth syndrome - Bowel disease - Depressive disorder, not elsewhere classified on cymbalta - Diabetes mellitus (HCC) 1980s on insulin since 1982 - Fracture - GERD (gastroesophageal reflux disease) resolved since 2004 - HTN (hypertension) resolved since 2004 - Incisional hernia without mention of obstruction or gangrene - Irritable bowel syndrome - Necrotizing fasciitis (HCC) - Obesity, unspecified 05-23-10 STATED BMI 35.91 Ht: 70 Wt: 250 lbs - Open wound of abdominal wall, anterior, complicated 1 - PMH - PAST MEDICAL HISTORY OF irritable bowel syndrome, necrotizing fasciitis, hypertension, diabetes, GERD, gastritis, - PMH - PAST MEDICAL HISTORY OF 09/2009 left foot break - RSD lower limb seen by pain management PAST SURGICAL HISTORY Procedure Laterality Date - ARTHROS SHLDR DX W/WO SYNV BX Right 05/03/2017 Right shoulder arthroscopy, glenoid chondroplasty - FEEDING TUBE-SPECIFY J-tube - GASTRIC BYPASS, LION-EN-Y 04/27/11 - HYSTERECTOMY HX 2003 - PAST SURGICAL HISTORY OF colostomy, partial colectomy,OSMAR/BSO, right hand tendon rplaced, fatty tumor excision back and thigh,ulnar nreve surgery bilaterally, tonsillectomy - PAST SURGICAL HISTORY OF 2005 repair of fistulas - PAST SURGICAL HISTORY OF 2005 translupe colostomy - PAST SURGICAL HISTORY OF 2004 debredement due to necratizing fascitis - PAST SURGICAL HISTORY OF 2004 hysterectomy - PAST SURGICAL HISTORY OF STATES > 113 ABDOMINAL SURGERIES - PAST SURGICAL HISTORY OF resversal of colostomy - PAST SURGICAL HISTORY OF 10/2015 hernia repair/abdominal muscle repair - REPAIR COMPL ROTATOR CUFF AVULSN,CHR Right 05/03/2017 Glenoid chondroplasty, labtral debridement, SAD - TONSILLECTOMY HX 1977 ALLERGIES Bactrim [Sulfamethoxazole]; Cipro I.V. [Ciprofloxacin]; Dimetapp [Pseudoephedrine-Dm]; Erythromycin; Keflex [Cephalexin]; Latex; Tetracycline MEDICATIONS potassium chloride (K-TAB) 10 mEq tablet Take 1 tablet by mouth twice daily. insulin glargine (LANTUS SOLOSTAR U-100 INSULIN) 100 unit/mL (3 mL) inpn 15 units once daily each evening insulin aspart U-100 (NOVOLOG) 100 unit/mL inpn 8 units before meals + 2 u per 50 >200 gabapentin (NEURONTIN) 100 mg capsule 300 mg daily at bedtime clonazePAM (KLONOPIN) 1 mg tablet Take 1 tablet by mouth daily at bedtime for 30 days. meloxicam (MOBIC) 15 mg tablet Take 1 tablet by mouth once daily. Phentermine HCl (ADIPEX-P) 37.5 mg capsule Take 1 capsule by mouth once daily for 30 days. losartan (COZAAR) 25 mg tablet Take 1 tablet by mouth once daily. aspirin, enteric coated (ASPIRIN, ENTERIC COATED) 81 mg EC tablet TAKE ONE TABLET BY MOUTH DAILY metoprolol succinate ER (TOPROL XL) 25 mg 24 hr tablet TAKE ONE TABLET BY MOUTH DAILY fluticasone (FLONASE) 50 mcg/actuation nasal spray Use 2 Sprays in each nostril once daily. omeprazole (PRILOSEC) 20 mg capsule Take 1 capsule by mouth twice daily. Diaper,Brief, Adult,Disposable (PREVAIL ADJUST UNDERWEAR KIMBERLEY- ) misc 1 Each as needed. Dx: N36.0, K58.9 zolpidem (AMBIEN) 10 mg tab Take 1 tablet by mouth at bedtime as needed. estradiol (CLIMARA) 0.025 mg/24 hr Apply 1 Patch as directed once each week. blood sugar diagnostic (Budding BiologistTOUCH ULTRA TEST) test strip TEST BLOOD SUGAR 6 TO 8 TIMES DAILY Dx: E11.9 Insulin:yes Lancets lancets Use as instructed to test blood sugars 8 times daily E11.9 Blood-Glucose Meter (Budding BiologistTOUCH ULTRA2) monitoring kit As directed pen needle, diabetic 33 gauge x 5/32 ndle 1 Each as directed. Use with injections 4x daily E11.9 amLODIPine (NORVASC) 5 mg tablet TAKE TWO TABLETS BY MOUTH DAILY QUEtiapine (SEROQUEL) 100 mg tablet Take 1 tablet by mouth twice daily. DULoxetine (CYMBALTA) 60 mg capsule Take 1 capsule by mouth daily at bedtime. LANCETS REGULAR MISC 1 Each as directed. Use 6 x daily cholecalciferol, Vitamin D3, (VITAMIN D3) 50,000 unit cap capsule Take 1 capsule by mouth once each week. Take with your largest meal of the day Multivits,CalciumAND Minerals-FA 267 mcg tab Take 1 tablet by mouth twice daily. Centrum Adult Chewables MVI with minerals is preferred; must be chewable Blood Sugar Diagnostic, Disc strp 1 Each as directed. CHECK BLOOD GLUCOSE EIGHT TIMES PER DAY/ insulin glargine (LANTUS) 100 unit/mL (3 mL) inpn Inject 10 Units subcutaneously as needed. FAMILY HISTORY Problem Relation Age of Onset - Bipolar [OTHER] Mother - Diabetes Father Type 2 - Heart Father hypertension - Colon Cancer Paternal Grandfather dx'd age 61? - Hypertension Paternal Grandfather - Diabetes Paternal Grandfather Type 2 - Heart Daughter - Breast Cancer Paternal Aunt - Hypoplastic Left heart [OTHER] Son Social History Substance Use Topics - Smoking status: Never Smoker - Smokeless tobacco: Never Used - Alcohol use No PHYSICAL EXAM There were no vitals taken for this visit. General Appearance: well appearing, in no acute distress, alert Head: normocephalic, atraumatic Lungs: Lungs clear to auscultation. No wheezing, rhonchi, rales Heart: RRR without murmur, gallop, or rubs. No ectopy Bilateral Lower Extremities: No deformities, edema, skin discoloration DTAP,TDAP,TD(1 - Tdap) due on 1981 HPV EVERY 5 YEARS due on 1992 PAP EVERY 5 YEARS due on 02/12/2018 DIABETIC FOOT EXAM due on 12/26/2017 HBA1C due on 04/17/2018 MAMMOGRAM due on 04/22/2018 URINE ALBUMIN CREATININE RATIO due on 07/25/2018 LDL due on 07/25/2018 DILATED RETINAL EXAM due on 08/28/2018 COLORECTAL CANCER SCREENING,SEE MODIFIER due on 07/04/2022 ONE PNEUMOVAX PRIOR TO AGE 65 Completed INFLUENZA Completed HEPATITIS C SCREENING Completed ASSESSMENT/PLAN: 1. Essential hypertension, benign - ICD9: 401.1, ICD10: I10 (primary diagnosis) - suboptimal control - Increase losartan(Cozaar) - Recommended regular aerobic exercise. - Recommend home blood pressure monitoring, to bring results in on next visit - Goal of BP <130/80 - LOSARTAN 50 MG TABLET 2. Insomnia, unspecified type - ICD9: 780.52, ICD10: G47.00 - ZOLPIDEM 10 MG TABLET - OARRS website checked and validated. All prescriptions have been APPROPRIATELY filled. No suspicious activity was identified.- 10/18/2017 by SHILO Krishna APRN.KIRT Prescription instructions reviewed with patient as applicable. Potential red flag symptoms discussed with the patient. Reviewed appropriate action plan to take if red flag symptoms occur. Patient agreeable to treatment plan. Referring Provider: IBRAHIMA SARKAR ([facility]) [[id number]] Allergies As of Date: 10/18/2017 Noted Allergy Reaction BACTRIM (SULFAMETHOXAZOLE) 08/13/2011 14 - Other: See Comments Comments: Cardiac issues, CIPRO IV only CIPRO I.V. (CIPROFLOXACIN) 06/28/2006 4 - Hives 12 - Shortness of Breath DIMETAPP (PSEUDOEPHEDRINE-DM) 12/04/2005 11 - Vomiting Comments: violently ill when overdosed on it as child ERYTHROMYCIN 11/29/2005 Comments: hives ok with zithromax KEFLEX (CEPHALEXIN) 11/29/2005 Comments: OK to give zosyn per MD 1-12-07 LATEX 11/29/2005 2 - Rash Comments: rash, breaks out everywhere, n/v , feels weak Can still eat food that is considered for latex allergies No allergic to latex foods per patient isaak 05/07/11 TETRACYCLINE 02/05/2006 Comments: hives Date Reviewed: 10/18/2017 Reviewed by: Ana Luisa Talley Ma - Fully Assessed Reason for Visit: Weight Problem [121] Cmt: 1 month follow up Blood Pressure [15] Cmt: follow up Reason For Visit History Recorded Primary Visit Diagnosis:Essential hypertension, benign [I10] Other Visit Diagnosis:Insomnia, unspecified type [G47.00] Order(s):zolpidem (AMBIEN) 10 mg tabTake 1 tablet by mouth at bedtime as needed for up to 30 days.Disp: 30 tabletRfl: 2 losartan (COZAAR) 50 mg tabletTake 1 tablet by mouth once daily.Disp: 30 tabletRfl: 5 Prescriptions as of 10/18/2017 Sig: ZOLPIDEM 10 MG TABLET Take 1 tablet by mouth at bed* LOSARTAN 50 MG TABLET Take 1 tablet by mouth once d* POTASSIUM CHLORIDE ER 10 MEQ * Take 1 tablet by mouth twice * INSULIN GLARGINE (U-100) 100 * 15 units once daily each even* INSULIN ASPART U-100 100 UNI* 8 units before meals + 2 u pe* GABAPENTIN 100 MG CAPSULE 300 mg daily at bedtime CLONAZEPAM 1 MG TABLET Take 1 tablet by mouth daily * MELOXICAM 15 MG TABLET Take 1 tablet by mouth once d* PHENTERMINE 37.5 MG CAPSULE Take 1 capsule by mouth once * ASPIRIN 81 MG TABLET,DELAYED * TAKE ONE TABLET BY MOUTH DAILY METOPROLOL SUCCINATE ER 25 MG* TAKE ONE TABLET BY MOUTH DAILY FLUTICASONE 50 MCG/ACTUATION * Use 2 Sprays in each nostril * OMEPRAZOLE 20 MG CAPSULE,JAG* Take 1 capsule by mouth twice* DIAPER,BRIEF,ADULT,DISPOSABLE 1 Each as needed. Dx: N36.0,* ESTRADIOL 0.025 MG/24 HR WEEK* Apply 1 Patch as directed onc* BLOOD SUGAR DIAGNOSTIC STRIPS TEST BLOOD SUGAR 6 TO 8 TIMES* LANCETS Use as instructed to test blo* BLOOD-GLUCOSE METER KIT As directed PEN NEEDLE, DIABETIC 33 GAUGE* 1 Each as directed. Use with * AMLODIPINE 5 MG TABLET TAKE TWO TABLETS BY MOUTH WILIAN* QUETIAPINE 100 MG TABLET Take 1 tablet by mouth twice * DULOXETINE 60 MG CAPSULE,JAG* Take 1 capsule by mouth daily* LANCETS REGULAR MISC 1 Each as directed. Use 6 x d* CHOLECALCIFEROL (VITAMIN D3) * Take 1 capsule by mouth once * MULTIVITAMIN WITH CALCIUM AND* Take 1 tablet by mouth twice * BLOOD SUGAR DIAGNOSTIC, DISC * 1 Each as directed. 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 Essential Hypertension, Benign [I10] INVALID FOR* More... Hyperpotassemia [E87.5] INVALID FOR*04/15/2017 Abdominal pain, left lower quadrant [R10.32] INVALID FOR*04/15/2017 Abdominal pain, right lower quadrant [R10.31] INVALID FOR*04/15/2017 Abdominal Pain, Generalized [R10.84] INVALID FOR* HTN (hypertension) [I10] 04/15/2017 More... GERD (Gastroesophageal Reflux Disease) [K21.9] More... Irritable Bowel Syndrome [K58.9] RSD lower limb [G90.529] 04/15/2017 Open wound of abdominal wall, anterior, complic* 04/15/2017 Depressive disorder, not elsewhere classified [* More... Morbid obesity (HCC) [E66.01] INVALID FOR*12/25/2016 Dietary surveillance and counseling [Z71.3] INVALID FOR*04/15/2017 Gastric bypass status for obesity [Z98.84] INVALID FOR*04/15/2017 More... Nausea AND vomiting [R11.2] INVALID FOR*04/15/2017 Other and unspecified postsurgical nonabsorptio*INVALID FOR*04/15/2017 Osteoporosis [M81.0] INVALID FOR*08/20/2013 On total parenteral nutrition (TPN) [Z78.9] INVALID FOR*04/15/2017 Malabsorption [K90.9] INVALID FOR* Fracture [T14.8XXA] INVALID FOR*04/15/2017 Hernia of abdominal wall [K43.9] INVALID FOR* H/O hyperglycemia [Z86.39] INVALID FOR*04/15/2017 Diarrhea [R19.7] INVALID FOR* Insomnia [G47.00] INVALID FOR* More... Diabetic neuropathy, painful (HCC) [E11.40] INVALID FOR* More... DM (diabetes mellitus) (HCC) [E11.9] INVALID FOR* More... Unspecified intestinal malabsorption [K90.9] INVALID FOR* More... Osteoporosis [M81.0] INVALID FOR* More... Vitamin D deficiency [E55.9] INVALID FOR* More... Post-operative state [Z98.890] INVALID FOR*04/15/2017 Obesity (BMI 30.0-34.9) [E66.9] INVALID FOR* More... Chronic pain in right shoulder [M25.511, G89.29]INVALID FOR* More... Impingement syndrome of right shoulder [M75.41] INVALID FOR* More... Migraines [G43.909] INVALID FOR* DDD (degenerative disc disease), lumbar [M51.36]INVALID FOR* Acute pain of right shoulder [M25.511] INVALID FOR* Prescriptions ordered this encounter Disp Refills Start End ZOLPIDEM 10 MG TABLET 30 t* 2 10/18/2017 11/17/2017 Class: Print RX Route: ORAL Sig: Take 1 tablet by mouth at bedtime as needed for up to 30 days. LOSARTAN 50 MG TABLET 30 t* 5 10/18/2017 Route: ORAL Sig: Take 1 tablet by mouth once daily. Medications Discontinued During This Encounter losartan (COZAAR) 25 mg tablet 30 t* 2 09/19/2017 10/18/2017 Route: ORAL Sig: Take 1 tablet by mouth once daily. Disc: Reason for discontinue is not on file. zolpidem (AMBIEN) 10 mg tab 30 t* 3 05/29/2017 10/18/2017 Class: Print RX Route: ORAL Sig: Take 1 tablet by mouth at bedtime as needed. Disc: Reason for discontinue is not on file. Disposition: Return in about 3 weeks (around 11/08/2017). Follow-up and Disposition History Recorded Encounter Status:Closed by IBRAHIMA SARKAR CNP on 10/18/17 PROGRESS Observed: 10/18/2017 Status: COMPLETED Source: [place] 1:52 PM [facility] REPOSITORY HNO ID: [id number] Author: Ibrahima Sarkar (Kirt) Service: (none) Author Type: Nurse Practitioner Type: Progress Notes Filed: 10/18/2017 2:21 PM Note Text: CC: Patient presents with: Weight Problem: 1 month follow up Blood Pressure: follow up HPI Adri Goyal is a 57 year old female who presents today for BP follow up and weight check after completing 3 months of Adipex. Weight is unchanged since starting Adipex. However patient states she notices a difference in her midsection and she is down a pant size. She recently met with the dietitian and started a high protein diet ~2 days ago. HTN: Ms. Goyal indicates that she is feeling well and denies any symptoms referable to elevated blood pressure. Specifically denies headache, chest pain, palpitations, dyspnea and peripheral edema. Patient denies any side effects of her medication(s) and is compliant with their regimen. She does check BP's away from this office with average BP's in the 130/80s range. Adri works out regularly times per week with . Started protein sparing diet with the help of . Last 3 Encounter BP Readings: Date: BP: 10/15/2017 151/86 09/19/2017 118/72 08/19/2017 118/70 REVIEW OF SYSTEMS General: no fevers, no chills, no recurrent infections, no change in appetite, no change in energy and no significant changes in weight Respiratory: no cough, no wheezing, no shortness of breath, no hemoptysis Cardiovascular: no chest pain, no chest pressure, no palpitations and no swelling Neurologic: No headache, weakness, numbness, tingling, neck stiffness, tremor, vertigo, dizziness, memory loss, syncope. PAST MEDICAL HISTORY Diagnosis Date - Abdominal pain, generalized CHRONIC PAIN MANAGEMENT - Bacterial overgrowth syndrome - Bowel disease - Depressive disorder, not elsewhere classified on cymbalta - Diabetes mellitus (HCC) 1980s on insulin since 1982 - Fracture - GERD (gastroesophageal reflux disease) resolved since 2004 - HTN (hypertension) resolved since 2004 - Incisional hernia without mention of obstruction or gangrene - Irritable bowel syndrome - Necrotizing fasciitis (HCC) - Obesity, unspecified 05-23-10 STATED BMI 35.91 Ht: 70 Wt: 250 lbs - Open wound of abdominal wall, anterior, complicated 1 - PMH - PAST MEDICAL HISTORY OF irritable bowel syndrome, necrotizing fasciitis, hypertension, diabetes, GERD, gastritis, - PMH - PAST MEDICAL HISTORY OF 09/2009 left foot break - RSD lower limb seen by pain management PAST SURGICAL HISTORY Procedure Laterality Date - ARTHROS SHLDR DX W/WO SYNV BX Right 05/03/2017 Right shoulder arthroscopy, glenoid chondroplasty - FEEDING TUBE-SPECIFY J-tube - GASTRIC BYPASS, LION-EN-Y 04/27/11 - HYSTERECTOMY HX 2003 - PAST SURGICAL HISTORY OF colostomy, partial colectomy,OSMAR/BSO, right hand tendon rplaced, fatty tumor excision back and thigh,ulnar nreve surgery bilaterally, tonsillectomy - PAST SURGICAL HISTORY OF 2005 repair of fistulas - PAST SURGICAL HISTORY OF 2006 translupe colostomy - PAST SURGICAL HISTORY OF 2004 debredement due to necratizing fascitis - PAST SURGICAL HISTORY OF 2004 hysterectomy - PAST SURGICAL HISTORY OF STATES > 113 ABDOMINAL SURGERIES - PAST SURGICAL HISTORY OF resversal of colostomy - PAST SURGICAL HISTORY OF 10/2015 hernia repair/abdominal muscle repair - REPAIR COMPL ROTATOR CUFF AVULSN,CHR Right 05/03/2017 Glenoid chondroplasty, labtral debridement, SAD - TONSILLECTOMY HX 1977 ALLERGIES Bactrim [Sulfamethoxazole]; Cipro I.V. [Ciprofloxacin]; Dimetapp [Pseudoephedrine-Dm]; Erythromycin; Keflex [Cephalexin]; Latex; Tetracycline MEDICATIONS potassium chloride (K-TAB) 10 mEq tablet Take 1 tablet by mouth twice daily. insulin glargine (LANTUS SOLOSTAR U-100 INSULIN) 100 unit/mL (3 mL) inpn 15 units once daily each evening insulin aspart U-100 (NOVOLOG) 100 unit/mL inpn 8 units before meals + 2 u per 50 >200 gabapentin (NEURONTIN) 100 mg capsule 300 mg daily at bedtime clonazePAM (KLONOPIN) 1 mg tablet Take 1 tablet by mouth daily at bedtime for 30 days. meloxicam (MOBIC) 15 mg tablet Take 1 tablet by mouth once daily. Phentermine HCl (ADIPEX-P) 37.5 mg capsule Take 1 capsule by mouth once daily for 30 days. losartan (COZAAR) 25 mg tablet Take 1 tablet by mouth once daily. aspirin, enteric coated (ASPIRIN, ENTERIC COATED) 81 mg EC tablet TAKE ONE TABLET BY MOUTH DAILY metoprolol succinate ER (TOPROL XL) 25 mg 24 hr tablet TAKE ONE TABLET BY MOUTH DAILY fluticasone (FLONASE) 50 mcg/actuation nasal spray Use 2 Sprays in each nostril once daily. omeprazole (PRILOSEC) 20 mg capsule Take 1 capsule by mouth twice daily. Diaper,Brief, Adult,Disposable (PREVAIL ADJUST UNDERWEAR KIMBERLEY- ) misc 1 Each as needed. Dx: N36.0, K58.9 zolpidem (AMBIEN) 10 mg tab Take 1 tablet by mouth at bedtime as needed. estradiol (CLIMARA) 0.025 mg/24 hr Apply 1 Patch as directed once each week. blood sugar diagnostic (ONETOUCH ULTRA TEST) test strip TEST BLOOD SUGAR 6 TO 8 TIMES DAILY Dx: E11.9 Insulin:yes Lancets lancets Use as instructed to test blood sugars 8 times daily E11.9 Blood-Glucose Meter (ONETOUCH ULTRA2) monitoring kit As directed pen needle, diabetic 33 gauge x 5/32 ndle 1 Each as directed. Use with injections 4x daily E11.9 amLODIPine (NORVASC) 5 mg tablet TAKE TWO TABLETS BY MOUTH DAILY QUEtiapine (SEROQUEL) 100 mg tablet Take 1 tablet by mouth twice daily. DULoxetine (CYMBALTA) 60 mg capsule Take 1 capsule by mouth daily at bedtime. LANCETS REGULAR MISC 1 Each as directed. Use 6 x daily cholecalciferol, Vitamin D3, (VITAMIN D3) 50,000 unit cap capsule Take 1 capsule by mouth once each week. Take with your largest meal of the day Multivits,CalciumAND Minerals-FA 267 mcg tab Take 1 tablet by mouth twice daily. Centrum Adult Chewables MVI with minerals is preferred; must be chewable Blood Sugar Diagnostic, Disc strp 1 Each as directed. CHECK BLOOD GLUCOSE EIGHT TIMES PER DAY/ insulin glargine (LANTUS) 100 unit/mL (3 mL) inpn Inject 10 Units subcutaneously as needed. FAMILY HISTORY Problem Relation Age of Onset - Bipolar [OTHER] Mother - Diabetes Father Type 2 - Heart Father hypertension - Colon Cancer Paternal Grandfather dx'd age 61? - Hypertension Paternal Grandfather - Diabetes Paternal Grandfather Type 2 - Heart Daughter - Breast Cancer Paternal Aunt - Hypoplastic Left heart [OTHER] Son Social History Substance Use Topics - Smoking status: Never Smoker - Smokeless tobacco: Never Used - Alcohol use No PHYSICAL EXAM There were no vitals taken for this visit. General Appearance: well appearing, in no acute distress, alert Head: normocephalic, atraumatic Lungs: Lungs clear to auscultation. No wheezing, rhonchi, rales Heart: RRR without murmur, gallop, or rubs. No ectopy Bilateral Lower Extremities: No deformities, edema, skin discoloration DTAP,TDAP,TD(1 - Tdap) due on 1981 HPV EVERY 5 YEARS due on 1992 PAP EVERY 5 YEARS due on 02/12/2018 DIABETIC FOOT EXAM due on 12/26/2017 HBA1C due on 04/17/2018 MAMMOGRAM due on 04/22/2018 URINE ALBUMIN CREATININE RATIO due on 07/25/2018 LDL due on 07/25/2018 DILATED RETINAL EXAM due on 08/28/2018 COLORECTAL CANCER SCREENING,SEE MODIFIER due on 07/04/2022 ONE PNEUMOVAX PRIOR TO AGE 65 Completed INFLUENZA Completed HEPATITIS C SCREENING Completed ASSESSMENT/PLAN: 1. Essential hypertension, benign - ICD9: 401.1, ICD10: I10 (primary diagnosis) - suboptimal control - Increase losartan(Cozaar) - Recommended regular aerobic exercise. - Recommend home blood pressure monitoring, to bring results in on next visit - Goal of BP <130/80 - LOSARTAN 50 MG TABLET 2. Insomnia, unspecified type - ICD9: 780.52, ICD10: G47.00 - ZOLPIDEM 10 MG TABLET - OARRS website checked and validated. All prescriptions have been APPROPRIATELY filled. No suspicious activity was identified.- 10/18/2017 by Ibrahima Sarkar APRN.KIRT Sarkar APRN.KIRT Prescription instructions reviewed with patient as applicable. Potential red flag symptoms discussed with the patient. Reviewed appropriate action plan to take if red flag symptoms occur. Patient agreeable to treatment plan. PROGRESS Observed: 10/16/2017 Status: COMPLETED Source: [place] 2:16 PM [facility] REPOSITORY HNO ID: [id number] Author: Priya Acuna ([place]) Service: (none) Author Type: Registered Dietitian Type: Progress Notes Filed: 10/17/2017 12:12 PM Note Text: [facility] Nutrition Therapy: Initial Assessment Patient states reason for visit: Weightloss Activity: Patient's exercise is: more active 7 days per week - 30-45 min Generally active rest of the time Patient's symptoms are: Weight Concerns: failure to lose weight HgA1c 6.5 Pain: Is the patient having any pain that is interfering with oral/enteral intake? No 0 on a scale of 0 to 10 Diet History: Breakfast - oatmeal with raisins or apples, cinnomon, almond milk unsweet Snack - no Lunch - no Snack - no Dinner - 5-chicken, fish, turkey, veggies, cheese Snack - sometimes cheese and crackers Beverages - unsweet iced tea or iced coffee unsweet Vitamins/Supplements - MVI, calcium, D3 Allergies: Bactrim [Sulfamethoxazole]; Cipro I.V. [Ciprofloxacin]; Dimetapp [Pseudoephedrine-Dm]; Erythromycin; Keflex [Cephalexin]; Latex; Tetracycline Medications: Current Outpatient Prescriptions: potassium chloride (K-TAB) 10 mEq tablet Take 1 tablet by mouth twice daily. Disp: 60 tablet Rfl: 6 insulin glargine (LANTUS SOLOSTAR U-100 INSULIN) 100 unit/mL (3 mL) inpn 15 units once daily each evening Disp: 10 Pen Rfl: 11 insulin aspart U-100 (NOVOLOG) 100 unit/mL inpn 8 units before meals + 2 u per 50 >200 Disp: 10 Pen Rfl: 11 gabapentin (NEURONTIN) 100 mg capsule 300 mg daily at bedtime Disp: 90 capsule Rfl: 11 clonazePAM (KLONOPIN) 1 mg tablet Take 1 tablet by mouth daily at bedtime for 30 days. Disp: 30 tablet Rfl: 0 meloxicam (MOBIC) 15 mg tablet Take 1 tablet by mouth once daily. Disp: 30 tablet Rfl: 0 Phentermine HCl (ADIPEX-P) 37.5 mg capsule Take 1 capsule by mouth once daily for 30 days. Disp: 30 capsule Rfl: 0 losartan (COZAAR) 25 mg tablet Take 1 tablet by mouth once daily. Disp: 30 tablet Rfl: 2 aspirin, enteric coated (ASPIRIN, ENTERIC COATED) 81 mg EC tablet TAKE ONE TABLET BY MOUTH DAILY Disp: 30 tablet Rfl: 5 metoprolol succinate ER (TOPROL XL) 25 mg 24 hr tablet TAKE ONE TABLET BY MOUTH DAILY Disp: 30 tablet Rfl: 5 fluticasone (FLONASE) 50 mcg/actuation nasal spray Use 2 Sprays in each nostril once daily. Disp: 3 Bottle Rfl: 3 omeprazole (PRILOSEC) 20 mg capsule Take 1 capsule by mouth twice daily. Disp: 180 capsule Rfl: 3 Diaper,Brief, Adult,Disposable (PREVAIL ADJUST UNDERWEAR KIMBERLEY- ) misc 1 Each as needed. Dx: N36.0, K58.9 Disp: 250 Each Rfl: 11 zolpidem (AMBIEN) 10 mg tab Take 1 tablet by mouth at bedtime as needed. Disp: 30 tablet Rfl: 3 estradiol (CLIMARA) 0.025 mg/24 hr Apply 1 Patch as directed once each week. Disp: 4 Patch Rfl: 12 blood sugar diagnostic (ONETOUCH ULTRA TEST) test strip TEST BLOOD SUGAR 6 TO 8 TIMES DAILY Dx: E11.9 Insulin:yes Disp: 800 Strip Rfl: 3 Lancets lancets Use as instructed to test blood sugars 8 times daily E11.9 Disp: 800 Each Rfl: 3 Blood-Glucose Meter (ONETOUCH ULTRA2) monitoring kit As directed Disp: 1 Each Rfl: 0 pen needle, diabetic 33 gauge x 5/32 ndle 1 Each as directed. Use with injections 4x daily E11.9 Disp: 400 Each Rfl: 3 amLODIPine (NORVASC) 5 mg tablet TAKE TWO TABLETS BY MOUTH DAILY Disp: 180 tablet Rfl: 5 QUEtiapine (SEROQUEL) 100 mg tablet Take 1 tablet by mouth twice daily. Disp: 180 tablet Rfl: 3 DULoxetine (CYMBALTA) 60 mg capsule Take 1 capsule by mouth daily at bedtime. Disp: 90 capsule Rfl: 3 LANCETS REGULAR MISC 1 Each as directed. Use 6 x daily Disp: Rfl: cholecalciferol, Vitamin D3, (VITAMIN D3) 50,000 unit cap capsule Take 1 capsule by mouth once each week. Take with your largest meal of the day Disp: 12 capsule Rfl: 4 Multivits,CalciumAND Minerals-FA 267 mcg tab Take 1 tablet by mouth twice daily. Centrum Adult Chewables MVI with minerals is preferred; must be chewable Disp: 60 tablet Rfl: 99 Blood Sugar Diagnostic, Disc strp 1 Each as directed. CHECK BLOOD GLUCOSE EIGHT TIMES PER DAY/ Disp: Rfl: insulin glargine (LANTUS) 100 unit/mL (3 mL) inpn Inject 10 Units subcutaneously as needed. Disp: Rfl: No current facility-administered medications for this visit. Anthropometrics: Height: Last 1 Encounter Ht Readings: Date: Ht: 10/15/2017 176.5 cm (5' 9.49) Current weight: Last 1 Encounter Wt Readings: Date: Wt: 10/15/2017 99.7 kg (219 lb 12.8 oz) There is no height or weight on file to calculate BMI. Resting Metabolic Rate: 1667 NUTRITION ASSESSMENT: Malnutrition Screening Significant unintentional weight loss? No Eating less than 75% of usual intake for more than 2 weeks? No RECOMMENDED MALNUTRITION DIAGNOSIS: NO MALNUTRITION IDENTIFIED Educational materials provided: Protein Sparing Modified Fast Booklet and [facility] Recipes READINESS TO LEARN Cognitive ability: Alert and oriented Motivation to learn: Interested Family support: Unable to assess - Family not present Instruction provided to: Patient Patient learns best by: Individual Instruction Factors affecting learning: None Physical limitations affecting learning: None Patient presents for initial MNT as relates to weight control. S/P gastric bypass 2010; s/p coma 2003 multiple surgeries. Needs to have a hernia surgery and to lose weight prior. Intake noted for usually two meals per day and an evening snack. Takes calorie free beverages. Nutrition Diagnosis: Overweight Obesity, related to; excess energy intake and physical inactivity, as evidenced by BMI above normative standard for age and gender. Nutrition Intervention 10/16/2017: modify type and amount of food or beverage 1. Read over entire [facility] booklet prior to starting [facility] diet program 2. Follow Protein Sparing Modified Fast meal plan 15 ounces protein and 2 vegetable servings per day 3. Keep Food diary for 1 month to evaluate diet/supplement compliance and monitor any side effects 4. Take the following supplements: Potassium as prescribed by Dr. Quigley Calcium 7803-6619 milligram /day. Limit calcium supplements to 600 mg per dose for best absorption. Calcium Carbonate needs to be taken with food for absorption. Calcium Citrate does not need to be taken with food. Multivitamin/mineral daily Magnesium 500 milligram per day Sodium (salt)1500 milligram per day Bring in all vitamin bottles next visit to review labels 5. Drink 64 ounces calorie free beverages per day 6. Check ketones daily to ensure you are in ketosis (with Ketostix or Chemstrips) 7. Have labs drawn at Week #2 and Week #4. 8. Exercise goal: 150 - 250 minutes aerobic activity per week Resistance training two times per week for 10 - 20 minutes Nutrition Monitoring AND Evaluation: weight loss Criteria: patient update Need for Follow up: 1 month Referred/Supervised by: Zack/Misha FORD Billing Type: Initial Assess/15 min 2 units SIGNATURE: Priya Acuna MS RD LD PATIENT NAME: Adri Goyal DATE: October 16, 2017 TIME: 2:17 PM CNCNPATED Observed: 10/16/2017 Status: COMPLETED Source: [place] 2:00 PM [facility] REPOSITORY Education (NUTRMM) ADRI GOYAL ([id number]) 1960 F TPN Date Time Provider Department 10/16/17 2:00 PM PRIYA ACUNA) NUTRMM Reason for Visit: Patient Education [91] Assessment [673] Reason For Visit History Recorded Progress Notes: Priya Acuna) 10/17/2017 12:12 PM Signed [facility] Nutrition Therapy: Initial Assessment Patient states reason for visit: Weightloss Activity: Patient's exercise is: more active 7 days per week - 30-45 min Generally active rest of the time Patient's symptoms are: Weight Concerns: failure to lose weight HgA1c 6.5 Pain: Is the patient having any pain that is interfering with oral/enteral intake? No 0 on a scale of 0 to 10 Diet History: Breakfast - oatmeal with raisins or apples, cinnomon, almond milk unsweet Snack - no Lunch - no Snack - no Dinner - 5-chicken, fish, turkey, veggies, cheese Snack - sometimes cheese and crackers Beverages - unsweet iced tea or iced coffee unsweet Vitamins/Supplements - MVI, calcium, D3 Allergies: Bactrim [Sulfamethoxazole]; Cipro I.V. [Ciprofloxacin]; Dimetapp [Pseudoephedrine-Dm]; Erythromycin; Keflex [Cephalexin]; Latex; Tetracycline Medications: Current Outpatient Prescriptions: potassium chloride (K-TAB) 10 mEq tablet Take 1 tablet by mouth twice daily. Disp: 60 tablet Rfl: 6 insulin glargine (LANTUS SOLOSTAR U-100 INSULIN) 100 unit/mL (3 mL) inpn 15 units once daily each evening Disp: 10 Pen Rfl: 11 insulin aspart U-100 (NOVOLOG) 100 unit/mL inpn 8 units before meals + 2 u per 50 >200 Disp: 10 Pen Rfl: 11 gabapentin (NEURONTIN) 100 mg capsule 300 mg daily at bedtime Disp: 90 capsule Rfl: 11 clonazePAM (KLONOPIN) 1 mg tablet Take 1 tablet by mouth daily at bedtime for 30 days. Disp: 30 tablet Rfl: 0 meloxicam (MOBIC) 15 mg tablet Take 1 tablet by mouth once daily. Disp: 30 tablet Rfl: 0 Phentermine HCl (ADIPEX-P) 37.5 mg capsule Take 1 capsule by mouth once daily for 30 days. Disp: 30 capsule Rfl: 0 losartan (COZAAR) 25 mg tablet Take 1 tablet by mouth once daily. Disp: 30 tablet Rfl: 2 aspirin, enteric coated (ASPIRIN, ENTERIC COATED) 81 mg EC tablet TAKE ONE TABLET BY MOUTH DAILY Disp: 30 tablet Rfl: 5 metoprolol succinate ER (TOPROL XL) 25 mg 24 hr tablet TAKE ONE TABLET BY MOUTH DAILY Disp: 30 tablet Rfl: 5 fluticasone (FLONASE) 50 mcg/actuation nasal spray Use 2 Sprays in each nostril once daily. Disp: 3 Bottle Rfl: 3 omeprazole (PRILOSEC) 20 mg capsule Take 1 capsule by mouth twice daily. Disp: 180 capsule Rfl: 3 Diaper,Brief, Adult,Disposable (PREVAIL ADJUST UNDERWEAR SHABANA LARA) misc 1 Each as needed. Dx: N36.0, K58.9 Disp: 250 Each Rfl: 11 zolpidem (AMBIEN) 10 mg tab Take 1 tablet by mouth at bedtime as needed. Disp: 30 tablet Rfl: 3 estradiol (CLIMARA) 0.025 mg/24 hr Apply 1 Patch as directed once each week. Disp: 4 Patch Rfl: 12 blood sugar diagnostic (ONETOUCH ULTRA TEST) test strip TEST BLOOD SUGAR 6 TO 8 TIMES DAILY Dx: E11.9 Insulin:yes Disp: 800 Strip Rfl: 3 Lancets lancets Use as instructed to test blood sugars 8 times daily E11.9 Disp: 800 Each Rfl: 3 Blood-Glucose Meter (ONETOUCH ULTRA2) monitoring kit As directed Disp: 1 Each Rfl: 0 pen needle, diabetic 33 gauge x 5/32 ndle 1 Each as directed. Use with injections 4x daily E11.9 Disp: 400 Each Rfl: 3 amLODIPine (NORVASC) 5 mg tablet TAKE TWO TABLETS BY MOUTH DAILY Disp: 180 tablet Rfl: 5 QUEtiapine (SEROQUEL) 100 mg tablet Take 1 tablet by mouth twice daily. Disp: 180 tablet Rfl: 3 DULoxetine (CYMBALTA) 60 mg capsule Take 1 capsule by mouth daily at bedtime. Disp: 90 capsule Rfl: 3 LANCETS REGULAR MISC 1 Each as directed. Use 6 x daily Disp: Rfl: cholecalciferol, Vitamin D3, (VITAMIN D3) 50,000 unit cap capsule Take 1 capsule by mouth once each week. Take with your largest meal of the day Disp: 12 capsule Rfl: 4 Multivits,CalciumAND Minerals-FA 267 mcg tab Take 1 tablet by mouth twice daily. Centrum Adult Chewables MVI with minerals is preferred; must be chewable Disp: 60 tablet Rfl: 99 Blood Sugar Diagnostic, Disc strp 1 Each as directed. CHECK BLOOD GLUCOSE EIGHT TIMES PER DAY/ Disp: Rfl: insulin glargine (LANTUS) 100 unit/mL (3 mL) inpn Inject 10 Units subcutaneously as needed. Disp: Rfl: No current facility-administered medications for this visit. Anthropometrics: Height: Last 1 Encounter Ht Readings: Date: Ht: 10/15/2017 176.5 cm (5' 9.49) Current weight: Last 1 Encounter Wt Readings: Date: Wt: 10/15/2017 99.7 kg (219 lb 12.8 oz) There is no height or weight on file to calculate BMI. Resting Metabolic Rate: 1667 NUTRITION ASSESSMENT: Malnutrition Screening Significant unintentional weight loss? No Eating less than 75% of usual intake for more than 2 weeks? No RECOMMENDED MALNUTRITION DIAGNOSIS: NO MALNUTRITION IDENTIFIED Educational materials provided: Protein Sparing Modified Fast Booklet and PSMF Recipes READINESS TO LEARN Cognitive ability: Alert and oriented Motivation to learn: Interested Family support: Unable to assess - Family not present Instruction provided to: Patient Patient learns best by: Individual Instruction Factors affecting learning: None Physical limitations affecting learning: None Patient presents for initial MNT as relates to weight control. S/P gastric bypass 2010; s/p coma 2003 multiple surgeries. Needs to have a hernia surgery and to lose weight prior. Intake noted for usually two meals per day and an evening snack. Takes calorie free beverages. Nutrition Diagnosis: Overweight Obesity, related to; excess energy intake and physical inactivity, as evidenced by BMI above normative standard for age and gender. Nutrition Intervention 10/16/2017: modify type and amount of food or beverage 1. Read over entire PSMF booklet prior to starting PSMF diet program 2. Follow Protein Sparing Modified Fast meal plan 15 ounces protein and 2 vegetable servings per day 3. Keep Food diary for 1 month to evaluate diet/supplement compliance and monitor any side effects 4. Take the following supplements: Potassium as prescribed by Dr. Quigley Calcium 2454-4587 milligram /day. Limit calcium supplements to 600 mg per dose for best absorption. Calcium Carbonate needs to be taken with food for absorption. Calcium Citrate does not need to be taken with food. Multivitamin/mineral daily Magnesium 500 milligram per day Sodium (salt)1500 milligram per day Bring in all vitamin bottles next visit to review labels 5. Drink 64 ounces calorie free beverages per day 6. Check ketones daily to ensure you are in ketosis (with Ketostix or Chemstrips) 7. Have labs drawn at Week #2 and Week #4. 8. Exercise goal: 150 - 250 minutes aerobic activity per week Resistance training two times per week for 10 - 20 minutes Nutrition Monitoring AND Evaluation: weight loss Criteria: patient update Need for Follow up: 1 month Referred/Supervised by: Zack/Misha STEWARTT Billing Type: Initial Assess/15 min 2 units SIGNATURE: Priya Acuna MS RD LD PATIENT NAME: Adri Goyal DATE: October 16, 2017 TIME: 2:17 PM Priya Acuan (Robson) 10/16/2017 2:41 PM Signed 1. Read over entire PSMF booklet prior to starting PSMF diet program 2. Follow Protein Sparing Modified Fast meal plan 15 ounces protein and 2 vegetable servings per day 3. Keep Food diary for 1 month to evaluate diet/supplement compliance and monitor any side effects 4. Take the following supplements: Potassium as prescribed by Dr. Quigley Calcium 1585-8855 milligram /day. Limit calcium supplements to 600 mg per dose for best absorption. Calcium Carbonate needs to be taken with food for absorption. Calcium Citrate does not need to be taken with food. Multivitamin/mineral daily Magnesium 500 milligram per day Sodium (salt)1500 milligram per day Bring in all vitamin bottles next visit to review labels 5. Drink 64 ounces calorie free beverages per day 6. Check ketones daily to ensure you are in ketosis (with Ketostix or Chemstrips) 7. Have labs drawn at Week #2 and Week #4. 8. Exercise goal: 150 - 250 minutes aerobic activity per week Resistance training two times per week for 10 - 20 minutes Document on: 10/16/2017 by: Priya Acuna (Rd) [[id number]] of: After Visit Summary Other instructions from your clinician: 1. Read over entire PSMF booklet prior to starting PSMF diet program 2. Follow Protein Sparing Modified Fast meal plan 15 ounces protein and 2 vegetable servings per day 3. Keep Food diary for 1 month to evaluate diet/supplement compliance and monitor any side effects 4. Take the following supplements: Potassium as prescribed by Dr. Quigley Calcium 5588-2564 milligram /day. Limit calcium supplements to 600 mg per dose for best absorption. Calcium Carbonate needs to be taken with food for absorption. Calcium Citrate does not need to be taken with food. Multivitamin/mineral daily Magnesium 500 milligram per day Sodium (salt)1500 milligram per day Bring in all vitamin bottles next visit to review labels 5. Drink 64 ounces calorie free beverages per day 6. Check ketones daily to ensure you are in ketosis (with Ketostix or Chemstrips) 7. Have labs drawn at Week #2 and Week #4. 8. Exercise goal: 150 - 250 minutes aerobic activity per week Resistance training two times per week for 10 - 20 minutes Primary Visit Diagnosis:Obesity (BMI 30.0-34.9) [E66.9] Other Visit Diagnoses:Type 1 diabetes mellitus with diabetic polyneuropathy (HCC) [E10.42] Dietary counseling [Z71.3] During your visit today, we recorded the following information about you: Weight Height 99.9 kg 1.765 m Allergies As of Date: 10/16/2017 Noted Allergy Reaction BACTRIM (SULFAMETHOXAZOLE) 08/13/2011 14 - Other: See Comments Comments: Cardiac issues, CIPRO IV only CIPRO I.V. (CIPROFLOXACIN) 06/28/2006 4 - Hives 12 - Shortness of Breath DIMETAPP (PSEUDOEPHEDRINE-DM) 12/04/2005 11 - Vomiting Comments: violently ill when overdosed on it as child ERYTHROMYCIN 11/29/2005 Comments: hives ok with zithromax KEFLEX (CEPHALEXIN) 11/29/2005 Comments: OK to give zosyn per MD -05-23 LATEX 11/29/2005 2 - Rash Comments: rash, breaks out everywhere, n/v , feels weak Can still eat food that is considered for latex allergies No allergic to latex foods per patient isaak 05/07/11 TETRACYCLINE 02/05/2006 Comments: hives Date Reviewed: 10/16/2017 Reviewed by: Priya Acuna (Rd) - Fully Assessed Prescriptions as of 10/16/2017 Sig: POTASSIUM CHLORIDE ER 10 MEQ * Take 1 tablet by mouth twice * INSULIN GLARGINE (U-100) 100 * 15 units once daily each even* INSULIN ASPART U-100 100 UNI* 8 units before meals + 2 u pe* GABAPENTIN 100 MG CAPSULE 300 mg daily at bedtime CLONAZEPAM 1 MG TABLET Take 1 tablet by mouth daily * MELOXICAM 15 MG TABLET Take 1 tablet by mouth once d* PHENTERMINE 37.5 MG CAPSULE Take 1 capsule by mouth once * LOSARTAN 25 MG TABLET Take 1 tablet by mouth once d* ASPIRIN 81 MG TABLET,DELAYED * TAKE ONE TABLET BY MOUTH DAILY METOPROLOL SUCCINATE ER 25 MG* TAKE ONE TABLET BY MOUTH DAILY FLUTICASONE 50 MCG/ACTUATION * Use 2 Sprays in each nostril * OMEPRAZOLE 20 MG CAPSULE,JAG* Take 1 capsule by mouth twice* DIAPER,BRIEF,ADULT,DISPOSABLE 1 Each as needed. Dx: N36.0,* ZOLPIDEM 10 MG TABLET Take 1 tablet by mouth at bed* ESTRADIOL 0.025 MG/24 HR WEEK* Apply 1 Patch as directed onc* BLOOD SUGAR DIAGNOSTIC STRIPS TEST BLOOD SUGAR 6 TO 8 TIMES* LANCETS Use as instructed to test blo* BLOOD-GLUCOSE METER KIT As directed PEN NEEDLE, DIABETIC 33 GAUGE* 1 Each as directed. Use with * AMLODIPINE 5 MG TABLET TAKE TWO TABLETS BY MOUTH WILIAN* QUETIAPINE 100 MG TABLET Take 1 tablet by mouth twice * DULOXETINE 60 MG CAPSULE,JAG* Take 1 capsule by mouth daily* LANCETS REGULAR MISC 1 Each as directed. Use 6 x d* CHOLECALCIFEROL (VITAMIN D3) * Take 1 capsule by mouth once * MULTIVITAMIN WITH CALCIUM AND* Take 1 tablet by mouth twice * BLOOD SUGAR DIAGNOSTIC, DISC * 1 Each as directed. CHECK BLO* INSULIN GLARGINE (U-100) 100 * Inject 10 Units subcutaneousl* Encounter Status:Closed by PRIYA WHEATLEY MS, RD on 10/17/17 PROGRESS Observed: 10/15/2017 Status: COMPLETED Source: [place] 1:02 PM [facility] REPOSITORY HNO ID: [id number] Author: Pool Quigley Service: (none) Author Type: Physician Type: Progress Notes Filed: 10/16/2017 8:19 AM Note Text: [facility] Last seen 05-07-2017 Prolia Injection: 07-10-2017 Last DXA: 12-22-2015 - may not repeat - will not change tx at this point in time RE: Osteoporosis + DM - post RNYGB - 2010; with reversal for severe malnutrition/malabsorption requiring TPN 2012 CC: Osteoporosis AND post bariatric surgery with complications; + DM HPI: Adri Goyal is a 57 year old female who first presented in follow up for osteoporosis 09-23-2014, having seen a colleague in the department about a year prior - L ankle fx - missed a step - 2008 - numerous ankle fractures - elbows bilat - R wrist - fell on the ice with ORIF - She notes that after she received the Reclast injection last time she had severe painful cramping that lasted for weeks off and on FOLLOW UP VISIT 05-07-2017: here today for DM. Notes that her highest bs are in the morning. Has increased prandial insulin to 25 tid. Will recalc to more evenly split basal and bolus insulins FOLLOW UP VISIT 10-15-2017: Here today for DM follow up. She was prescribed phentermine by her pcp but is not on a formal weight loss program and states she has not lost any weight. Jake the prolia well without s/s.. SMBG Meter: One Touch Ultra 2 Frequency: FBS NOON DINNER HS OTHER: A[address] with some LBS when she is more active REVIEW OF SYSTEMS GENERAL: Wt - gradual gain persists HEENT: Negative for frequent or significant headaches NECK: Neg RESPIRATORY: Neg CARDIOVASCULAR: Neg GI: dumping 3-4x per week historically - not so much currently : neg MUSCULOSKELETAL: neg SKIN: Negative for lesions, rash, and itching. HEMATOLOGY/LYMPHOLOGY: Neg NEURO: notes tingling in her feet overnight that will wake her up sometimes Medical History PAST MEDICAL HISTORY Diagnosis Date - Abdominal pain, generalized CHRONIC PAIN MANAGEMENT - Bacterial overgrowth syndrome - Bowel disease - Depressive disorder, not elsewhere classified on cymbalta - Diabetes mellitus (HCC) 1980s on insulin since 1982 - Fracture - GERD (gastroesophageal reflux disease) resolved since 2004 - HTN (hypertension) resolved since 2004 - Incisional hernia without mention of obstruction or gangrene - Irritable bowel syndrome - Necrotizing fasciitis (HCC) - Obesity, unspecified 05-23-10 STATED BMI 35.91 Ht: 70 Wt: 250 lbs - Open wound of abdominal wall, anterior, complicated 1 - PMH - PAST MEDICAL HISTORY OF irritable bowel syndrome, necrotizing fasciitis, hypertension, diabetes, GERD, gastritis, - PMH - PAST MEDICAL HISTORY OF 09/2009 left foot break - RSD lower limb seen by pain management Surgical History PAST SURGICAL HISTORY Procedure Laterality Date - ARTHROS SHLDR DX W/WO SYNV BX Right 05/03/2017 Right shoulder arthroscopy, glenoid chondroplasty - FEEDING TUBE-SPECIFY J-tube - GASTRIC BYPASS, LION-EN-Y 04/27/11 - HYSTERECTOMY HX 2004 - PAST SURGICAL HISTORY OF colostomy, partial colectomy,OSMAR/BSO, right hand tendon rplaced, fatty tumor excision back and thigh,ulnar nreve surgery bilaterally, tonsillectomy - PAST SURGICAL HISTORY OF 2005 repair of fistulas - PAST SURGICAL HISTORY OF 2005 translupe colostomy - PAST SURGICAL HISTORY OF 2004 debredement due to necratizing fascitis - PAST SURGICAL HISTORY OF 2005 hysterectomy - PAST SURGICAL HISTORY OF STATES > 113 ABDOMINAL SURGERIES - PAST SURGICAL HISTORY OF resversal of colostomy - PAST SURGICAL HISTORY OF 10/2015 hernia repair/abdominal muscle repair - REPAIR COMPL ROTATOR CUFF AVULSN,CHR Right 05/03/2017 Glenoid chondroplasty, labtral debridement, SAD - TONSILLECTOMY HX 1978 Family History FAMILY HISTORY Problem Relation Age of Onset - Bipolar [OTHER] Mother - Diabetes Father Type 2 - Heart Father hypertension - Colon Cancer Paternal Grandfather dx'd age 61? - Hypertension Paternal Grandfather - Diabetes Paternal Grandfather Type 2 - Heart Daughter - Breast Cancer Paternal Aunt - Hypoplastic Left heart [OTHER] Son Social History Tobacco Use: Never Alcohol Use: No Supplements AND Compliance: as noted in her Med List Current Medications Current Outpatient Prescriptions on File Prior to Visit: clonazePAM (KLONOPIN) 1 mg tablet Take 1 tablet by mouth daily at bedtime for 30 days. meloxicam (MOBIC) 15 mg tablet Take 1 tablet by mouth once daily. Phentermine HCl (ADIPEX-P) 37.5 mg capsule Take 1 capsule by mouth once daily for 30 days. losartan (COZAAR) 25 mg tablet Take 1 tablet by mouth once daily. aspirin, enteric coated (ASPIRIN, ENTERIC COATED) 81 mg EC tablet TAKE ONE TABLET BY MOUTH DAILY metoprolol succinate ER (TOPROL XL) 25 mg 24 hr tablet TAKE ONE TABLET BY MOUTH DAILY fluticasone (FLONASE) 50 mcg/actuation nasal spray Use 2 Sprays in each nostril once daily. omeprazole (PRILOSEC) 20 mg capsule Take 1 capsule by mouth twice daily. Diaper,Brief, Adult,Disposable (PREVAIL ADJUST UNDERWEAR SHABANA LARA) misc 1 Each as needed. Dx: N36.0, K58.9 gabapentin (NEURONTIN) 100 mg capsule 300 mg daily at bedtime zolpidem (AMBIEN) 10 mg tab Take 1 tablet by mouth at bedtime as needed. blood sugar diagnostic (ONETOUCH ULTRA TEST) test strip TEST BLOOD SUGAR 6 TO 8 TIMES DAILY Dx: E11.9 Insulin:yes Lancets lancets Use as instructed to test blood sugars 8 times daily E11.9 Blood-Glucose Meter (ONETOUCH ULTRA2) monitoring kit As directed insulin glargine (LANTUS SOLOSTAR) 100 unit/mL (3 mL) inpn 30 u twice daily insulin aspart (NOVOLOG) 100 unit/mL inpn 18 units before meals + 2 u per 50 >150 pen needle, diabetic 33 gauge x 5/32 ndle 1 Each as directed. Use with injections 4x daily E11.9 amLODIPine (NORVASC) 5 mg tablet TAKE TWO TABLETS BY MOUTH DAILY QUEtiapine (SEROQUEL) 100 mg tablet Take 1 tablet by mouth twice daily. DULoxetine (CYMBALTA) 60 mg capsule Take 1 capsule by mouth daily at bedtime. LANCETS REGULAR MISC 1 Each as directed. Use 6 x daily cholecalciferol, Vitamin D3, (VITAMIN D3) 50,000 unit cap capsule Take 1 capsule by mouth once each week. Take with your largest meal of the day Multivits,CalciumAND Minerals-FA 267 mcg tab Take 1 tablet by mouth twice daily. Centrum Adult Chewables MVI with minerals is preferred; must be chewable Blood Sugar Diagnostic, Disc strp 1 Each as directed. CHECK BLOOD GLUCOSE EIGHT TIMES PER DAY/ estradiol (CLIMARA) 0.025 mg/24 hr Apply 1 Patch as directed once each week. gabapentin (NEURONTIN) 100 mg capsule Take 1 capsule by mouth once daily. No current facility-administered medications on file prior to visit. DXA: DATE OF EXAM: Dec 22 2015 DXA Model: Narus [facility] [employer] (S/N: [id number]) Site Scanned: Lumbar spine and left hip Date Scanned: 12/22/2015 11:35 AM RISK FACTORS FOR OSTEOPOROSIS AND ASSOCIATED FRACTURES REPORTED BY THIS PATIENT: Family history of osteoporosis in a first degree relative, postmenopausal female, rib, ankle, elbow and cheek bone fractures, kidney stones, disordered eating, vitamin D deficiency, Bariatric surgery CURRENT THERAPY: Calcium supplement, vitamin D , multivitamin and Reclast TECHNICAL LIMITATIONS: Degenerative disease of the spine RESULTS: Lumbar spine (L1-L4): 1.001 g/cm2, T-score -1.5, Z-score -0.8 Lumbar spine: 2013: 0.974 g/cm2 No statistically significant change Left Femoral Neck: 0.722 g/cm2, T-score -2.3, Z-score -1.3 Left Femoral Neck: 2013: 0.656 g/cm2 Statistically significant increase Left Total Hip: 0.679 g/cm2, T-score -2.6, Z-score -2.0 Left Total Hip: 2013: 0.604 g/cm2 Statistically significant increase CHANGE IS STATISTICALLY SIGNIFICANT IN THE SPINE OR HIP IF GREATER THAN OR EQUAL TO 0.04g/cm2 IMPRESSION: THE LOWEST T-SCORE IS -2.6 1) DIAGNOSIS (based on BMD alone): OSTEOPOROSIS - Caution: Medical conditions other than osteoporosis may cause low bone density, such as osteomalacia or renal osteodystrophy. Clinical correlation is necessary. 2) FRACTURE RISK (based on BMD alone): INCREASED RECOMMENDATIONS: All patients should receive the recommended daily allowance of calcium and vitamin D, as clinically indicated. Weight bearing exercises and strength training should be considered. Cessation of smoking and moderation of intake of alcohol, caffeine and carbonated beverages are recommended. NOF treatment recommendations (2008) Postmenopausal women and men age 50 and older presenting with the following should be treated: A hip or vertebral (clinical or morphometric) fracture T-score less than or equal to -2.5 at the femoral neck, total hip or spine after appropriate evaluation to exclude secondary causes Follow-up in 2 years or as clinically indicated. Follow-up scans should always be done on the same machine for accurate comparison. FOR MORE INFORMATION: [facility]osis [facility] Metabolic [facility] Disease: www.ccf.org/arthritis/osteo National Osteoporosis Foundation: www.nof.org International Society of Clinical Densitometry www.iscd.org I have reviewed this images extensively and concur with the above noted assessment - on the date noted LABS: 10-15-2017 A1c 6.7 Component Latest Ref Rng AND Units 06/27/2016 03/27/2017 Hemoglobin A1C 4.3 - 5.6 % 8.1 (H) 7.9 (H) Estimated Average Glucose mg/dL 186 180 Component Latest Ref Rng 01/07/2015 05/11/2015 06/24/2015 12/15/2015 06/27/2016 Hemoglobin A1C 4.3 - 5.6 % 7.4 (H) 7.2 (H) 6.7 (H) 6.6 (H) 8.1 (H) Estimated Average Glucose mg/dL 166 160 146 143 186 Component Latest Ref Rng 12/27/2015 12/31/2015 WBC 3.70 - 11.00 k/uL 4.66 RBC 3.90 - 5.20 m/uL 4.79 Hemoglobin 11.5 - 15.5 g/dL 11.9 Hematocrit 36.0 - 46.0 % 39.2 38.3 MCV 80.0 - 100.0 fL 80.0 MCH 26.0 - 34.0 pG 24.8 (L) MCHC 30.5 - 36.0 g/dL 31.1 RDW-CV 11.5 - 15.0 % 15.5 (H) Platelet Count 150 - 400 k/uL 229 MPV 9.0 - 12.7 fL 9.9 Neut% 68.4 Abs Neut (ANC) 1.45 - 7.50 k/uL 3.19 Lymph% 26.0 Abs Lymph 1.00 - 4.00 k/uL 1.21 [place]% 4.3 Abs [place] 0.00 - 0.86 k/uL 0.20 Eosin% 1.1 Abs Eosin 0.00 - 0.45 k/uL 0.05 Baso% 0.2 Abs Baso 0.00 - 0.10 k/uL 0.01 Diff Type Auto Diff Protein, Total 6.0 - 8.4 g/dL 7.2 Albumin 3.5 - 5.0 g/dL 4.2 Calcium 8.5 - 10.5 mg/dL 9.1 Bilirubin, Total 0.0 - 1.5 mg/dL 0.5 Alkaline Phosphatase 40 - 150 U/L 133 AST 7 - 40 U/L 22 Glucose 65 - 100 mg/dL 164 (H) BUN 8 - 25 mg/dL 15 Creatinine 0.70 - 1.40 mg/dL 0.72 Sodium 132 - 148 mmol/L 141 Potassium 3.5 - 5.0 mmol/L 4.0 Chloride 98 - 110 mmol/L 101 CO2 23 - 32 mmol/L 20 (L) Anion Gap 0 - 15 mmol/L 20 (H) ALT 0 - 45 U/L 10 eGFR- >60 eGFR-All Other Races >60 RBC Folate 257 - 800 ng/mL 501 Prealbumin 18 - 45 mg/dL 25 CRP 0.0 - 1.0 mg/dL 0.3 Vitamin A 0.30 - 1.20 mg/L 0.52 Vitamin B1, WB 70 - 180 nmol/L 126 Vitamin B12 221 - 700 pg/mL 294 Magnesium 1.7 - 2.6 mg/dL 1.9 Phosphorus 2.5 - 4.5 mg/dL 3.3 Vitamin D 25 Hydroxy 31.0 - 80.0 ng/mL 43.0 PHYSICAL EXAMINATION: General appearance: well appearing, alert, in no acute distress, obese with Body mass index is 32 kg/m?. Neck: Supple, no adenopathy; thyroid symmetric, normal size, no bruits Back: no pain to palpation over spine or costovertebral angles; shins no longer tender to deep palpation Musculoskeletal: Spine range of motion normal. Muscular strength intact; Neuro: grossly intact ASSESSMENT/PLAN: 1. 829.0 Multiple fractures 1b: Osteoporosis - multiple fractures that she reports starting in her late teen years - improved DXA as noted above-- likely due at least in part to concerted effort to consume adequate calcium, D and protein - Continue Prolia inj q 6 mo - will not repeat DXA at this point tho due -- will not change the course of tx 2. V45.86 Gastric bypass status for obesity 3. 579.3 Other and unspecified postsurgical nonabsorption - continues to take supplements - will continue to periodically check selected minerals as well as prealbumin to help guide her dietary selections - labs placed today - needs to be following a formal Kcal/R and get back to lean prot and vegetables in addition to routine physical activity - discussed at length with her today - ok to start PSMF diet - referred today 3. Incontinence of stool - persistent issue - wt loss is next step in the process because she is not a candidate for sx due to her weight status 4. B12 deficiency OTC 1000 mcg daily is recommended at this time - will monitor levels and may or may not require snf supplement vs getting sufficient B12 from diet + MVI 5. Vitamin D deficiency - 50,000 IU D3 weekly - to continue 6. Diabetes - Type 2 (confirmed by testing)- not at goal with interval worsening noted per A1c - reviewed SMBG today - adjusted insulins as follows in response to LBS Lantus 15 units each evening Novolo units before meals + Sliding Scale Insulin to be used before meals for blood sugars > 200 150 - 200 - inject 0 additional units 201 - 250 - 2 units 251 - 300 -- 4 units 301 - 350 -- 6 units 351 - 400 -- 8 units The patient has my card, and knows how to reach my office. I thank you for the opportunity to participate in the continued care of this patient. Please do not hesitate to contact me if you have further concerns or questions. Pool Quigley, MS, RD, MD, CCD, FACN, FACP, FACE Diplomate, [place] [employer] Diplomate, [place] [employer] [facility] F-20 / [phone] / [id number] CNOV Observed: 10/15/2017 Status: COMPLETED Source: [place] 12:45 PM [facility] REPOSITORY Office Visit (JOSE) ADRI GOYAL ([id number]) 1960 F TPN Date Time Provider Department 10/15/17 12:45 PM POOL QUIGLEY During your visit today, we recorded the following information about you: Pulse Blood pressure Weight Height 95/minute 151/86 99.7 kg 1.765 m Pool Quigley MD 10/16/2017 8:19 AM Signed [facility] Last seen 05-07-2017 Prolia Injection: 07-10-2017 Last DXA: 12-22-2015 - may not repeat - will not change tx at this point in time RE: Osteoporosis + DM - post RNYGB - 2010; with reversal for severe malnutrition/malabsorption requiring TPN 2012 CC: Osteoporosis AND post bariatric surgery with complications; + DM HPI: Adri Goyal is a 57 year old female who first presented in follow up for osteoporosis 09-23-2014, having seen a colleague in the department about a year prior - L ankle fx - missed a step - 2008 - numerous ankle fractures - elbows bilat - R wrist - fell on the ice with ORIF - She notes that after she received the Reclast injection last time she had severe painful cramping that lasted for weeks off and on FOLLOW UP VISIT 05-07-2017: here today for DM. Notes that her highest bs are in the morning. Has increased prandial insulin to 25 tid. Will recalc to more evenly split basal and bolus insulins FOLLOW UP VISIT 10-15-2017: Here today for DM follow up. She was prescribed phentermine by her pcp but is not on a formal weight loss program and states she has not lost any weight. Jake the prolia well without s/s.. SMBG Meter: One Touch Ultra 2 Frequency: FBS NOON DINNER HS OTHER: [address] with some LBS when she is more active REVIEW OF SYSTEMS GENERAL: Wt - gradual gain persists HEENT: Negative for frequent or significant headaches NECK: Neg RESPIRATORY: Neg CARDIOVASCULAR: Neg GI: dumping 3-4x per week historically - not so much currently : neg MUSCULOSKELETAL: neg SKIN: Negative for lesions, rash, and itching. HEMATOLOGY/LYMPHOLOGY: Neg NEURO: notes tingling in her feet overnight that will wake her up sometimes Medical History PAST MEDICAL HISTORY Diagnosis Date - Abdominal pain, generalized CHRONIC PAIN MANAGEMENT - Bacterial overgrowth syndrome - Bowel disease - Depressive disorder, not elsewhere classified on cymbalta - Diabetes mellitus (HCC) 1980s on insulin since 1982 - Fracture - GERD (gastroesophageal reflux disease) resolved since 2004 - HTN (hypertension) resolved since 2004 - Incisional hernia without mention of obstruction or gangrene - Irritable bowel syndrome - Necrotizing fasciitis (HCC) - Obesity, unspecified 05-23-10 STATED BMI 35.91 Ht: 70 Wt: 250 lbs - Open wound of abdominal wall, anterior, complicated 1 - PMH - PAST MEDICAL HISTORY OF irritable bowel syndrome, necrotizing fasciitis, hypertension, diabetes, GERD, gastritis, - PMH - PAST MEDICAL HISTORY OF 09/2009 left foot break - RSD lower limb seen by pain management Surgical History PAST SURGICAL HISTORY Procedure Laterality Date - ARTHROS SHLDR DX W/WO SYNV BX Right 05/03/2017 Right shoulder arthroscopy, glenoid chondroplasty - FEEDING TUBE-SPECIFY J-tube - GASTRIC BYPASS, LION-EN-Y 04/27/11 - HYSTERECTOMY HX 2003 - PAST SURGICAL HISTORY OF colostomy, partial colectomy,OSMAR/BSO, right hand tendon rplaced, fatty tumor excision back and thigh,ulnar nreve surgery bilaterally, tonsillectomy - PAST SURGICAL HISTORY OF 2005 repair of fistulas - PAST SURGICAL HISTORY OF 2005 translupe colostomy - PAST SURGICAL HISTORY OF 2004 debredement due to necratizing fascitis - PAST SURGICAL HISTORY OF 2004 hysterectomy - PAST SURGICAL HISTORY OF STATES > 113 ABDOMINAL SURGERIES - PAST SURGICAL HISTORY OF resversal of colostomy - PAST SURGICAL HISTORY OF 10/2015 hernia repair/abdominal muscle repair - REPAIR COMPL ROTATOR CUFF AVULSN,CHR Right 05/03/2017 Glenoid chondroplasty, labtral debridement, SAD - TONSILLECTOMY HX 1978 Family History FAMILY HISTORY Problem Relation Age of Onset - Bipolar [OTHER] Mother - Diabetes Father Type 2 - Heart Father hypertension - Colon Cancer Paternal Grandfather dx'd age 61? - Hypertension Paternal Grandfather - Diabetes Paternal Grandfather Type 2 - Heart Daughter - Breast Cancer Paternal Aunt - Hypoplastic Left heart [OTHER] Son Social History Tobacco Use: Never Alcohol Use: No Supplements AND Compliance: as noted in her Med List Current Medications Current Outpatient Prescriptions on File Prior to Visit: clonazePAM (KLONOPIN) 1 mg tablet Take 1 tablet by mouth daily at bedtime for 30 days. meloxicam (MOBIC) 15 mg tablet Take 1 tablet by mouth once daily. Phentermine HCl (ADIPEX-P) 37.5 mg capsule Take 1 capsule by mouth once daily for 30 days. losartan (COZAAR) 25 mg tablet Take 1 tablet by mouth once daily. aspirin, enteric coated (ASPIRIN, ENTERIC COATED) 81 mg EC tablet TAKE ONE TABLET BY MOUTH DAILY metoprolol succinate ER (TOPROL XL) 25 mg 24 hr tablet TAKE ONE TABLET BY MOUTH DAILY fluticasone (FLONASE) 50 mcg/actuation nasal spray Use 2 Sprays in each nostril once daily. omeprazole (PRILOSEC) 20 mg capsule Take 1 capsule by mouth twice daily. Diaper,Brief, Adult,Disposable (PREVAIL ADJUST UNDERWEAR KIMBERLEY- ) misc 1 Each as needed. Dx: N36.0, K58.9 gabapentin (NEURONTIN) 100 mg capsule 300 mg daily at bedtime zolpidem (AMBIEN) 10 mg tab Take 1 tablet by mouth at bedtime as needed. blood sugar diagnostic (ONETOUCH ULTRA TEST) test strip TEST BLOOD SUGAR 6 TO 8 TIMES DAILY Dx: E11.9 Insulin:yes Lancets lancets Use as instructed to test blood sugars 8 times daily E11.9 Blood-Glucose Meter (Budding BiologistTOUCH ULTRA2) monitoring kit As directed insulin glargine (LANTUS SOLOSTAR) 100 unit/mL (3 mL) inpn 30 u twice daily insulin aspart (NOVOLOG) 100 unit/mL inpn 18 units before meals + 2 u per 50 >150 pen needle, diabetic 33 gauge x 5/32 ndle 1 Each as directed. Use with injections 4x daily E11.9 amLODIPine (NORVASC) 5 mg tablet TAKE TWO TABLETS BY MOUTH DAILY QUEtiapine (SEROQUEL) 100 mg tablet Take 1 tablet by mouth twice daily. DULoxetine (CYMBALTA) 60 mg capsule Take 1 capsule by mouth daily at bedtime. LANCETS REGULAR MISC 1 Each as directed. Use 6 x daily cholecalciferol, Vitamin D3, (VITAMIN D3) 50,000 unit cap capsule Take 1 capsule by mouth once each week. Take with your largest meal of the day Multivits,CalciumAND Minerals-FA 267 mcg tab Take 1 tablet by mouth twice daily. Centrum Adult Chewables MVI with minerals is preferred; must be chewable Blood Sugar Diagnostic, Disc strp 1 Each as directed. CHECK BLOOD GLUCOSE EIGHT TIMES PER DAY/ estradiol (CLIMARA) 0.025 mg/24 hr Apply 1 Patch as directed once each week. gabapentin (NEURONTIN) 100 mg capsule Take 1 capsule by mouth once daily. No current facility-administered medications on file prior to visit. DXA: DATE OF EXAM: Dec 22 2015 DXA Model: Narus Hiveoo (S/N: [id number]) Site Scanned: Lumbar spine and left hip Date Scanned: 12/22/2015 11:35 AM RISK FACTORS FOR OSTEOPOROSIS AND ASSOCIATED FRACTURES REPORTED BY THIS PATIENT: Family history of osteoporosis in a first degree relative, postmenopausal female, rib, ankle, elbow and cheek bone fractures, kidney stones, disordered eating, vitamin D deficiency, Bariatric surgery CURRENT THERAPY: Calcium supplement, vitamin D , multivitamin and Reclast TECHNICAL LIMITATIONS: Degenerative disease of the spine RESULTS: Lumbar spine (L1-L4): 1.001 g/cm2, T-score -1.5, Z-score -0.8 Lumbar spine: 2012: 0.974 g/cm2 No statistically significant change Left Femoral Neck: 0.722 g/cm2, T-score -2.3, Z-score -1.3 Left Femoral Neck: 2012: 0.656 g/cm2 Statistically significant increase Left Total Hip: 0.679 g/cm2, T-score -2.6, Z-score -2.0 Left Total Hip: 2013: 0.604 g/cm2 Statistically significant increase CHANGE IS STATISTICALLY SIGNIFICANT IN THE SPINE OR HIP IF GREATER THAN OR EQUAL TO 0.04g/cm2 IMPRESSION: THE LOWEST T-SCORE IS -2.6 1) DIAGNOSIS (based on BMD alone): OSTEOPOROSIS - Caution: Medical conditions other than osteoporosis may cause low bone density, such as osteomalacia or renal osteodystrophy. Clinical correlation is necessary. 2) FRACTURE RISK (based on BMD alone): INCREASED RECOMMENDATIONS: All patients should receive the recommended daily allowance of calcium and vitamin D, as clinically indicated. Weight bearing exercises and strength training should be considered. Cessation of smoking and moderation of intake of alcohol, caffeine and carbonated beverages are recommended. NOF treatment recommendations (2008) Postmenopausal women and men age 50 and older presenting with the following should be treated: A hip or vertebral (clinical or morphometric) fracture T-score less than or equal to -2.5 at the femoral neck, total hip or spine after appropriate evaluation to exclude secondary causes Follow-up in 2 years or as clinically indicated. Follow-up scans should always be done on the same machine for accurate comparison. FOR MORE INFORMATION: [facility]osis [facility] Metabolic [facility] Disease: www.ccf.org/arthritis/osteo National Osteoporosis Foundation: www.nof.org International Society of Clinical Densitometry www.iscd.org I have reviewed this images extensively and concur with the above noted assessment - on the date noted LABS: 10-15-2017 A1c 6.7 Component Latest Ref Rng AND Units 06/27/2016 03/27/2017 Hemoglobin A1C 4.3 - 5.6 % 8.1 (H) 7.9 (H) Estimated Average Glucose mg/dL 186 180 Component Latest Ref Rng 01/07/2015 05/11/2015 06/24/2015 12/15/2015 06/27/2016 Hemoglobin A1C 4.3 - 5.6 % 7.4 (H) 7.2 (H) 6.7 (H) 6.6 (H) 8.1 (H) Estimated Average Glucose mg/dL 166 160 146 143 186 Component Latest Ref Rng 12/27/2015 12/31/2015 WBC 3.70 - 11.00 k/uL 4.66 RBC 3.90 - 5.20 m/uL 4.79 Hemoglobin 11.5 - 15.5 g/dL 11.9 Hematocrit 36.0 - 46.0 % 39.2 38.3 MCV 80.0 - 100.0 fL 80.0 MCH 26.0 - 34.0 pG 24.8 (L) MCHC 30.5 - 36.0 g/dL 31.1 RDW-CV 11.5 - 15.0 % 15.5 (H) Platelet Count 150 - 400 k/uL 229 MPV 9.0 - 12.7 fL 9.9 Neut% 68.4 Abs Neut (ANC) 1.45 - 7.50 k/uL 3.19 Lymph% 26.0 Abs Lymph 1.00 - 4.00 k/uL 1.21 [place]% 4.3 Abs [place] 0.00 - 0.86 k/uL 0.20 Eosin% 1.1 Abs Eosin 0.00 - 0.45 k/uL 0.05 Baso% 0.2 Abs Baso 0.00 - 0.10 k/uL 0.01 Diff Type Auto Diff Protein, Total 6.0 - 8.4 g/dL 7.2 Albumin 3.5 - 5.0 g/dL 4.2 Calcium 8.5 - 10.5 mg/dL 9.1 Bilirubin, Total 0.0 - 1.5 mg/dL 0.5 Alkaline Phosphatase 40 - 150 U/L 133 AST 7 - 40 U/L 22 Glucose 65 - 100 mg/dL 164 (H) BUN 8 - 25 mg/dL 15 Creatinine 0.70 - 1.40 mg/dL 0.72 Sodium 132 - 148 mmol/L 141 Potassium 3.5 - 5.0 mmol/L 4.0 Chloride 98 - 110 mmol/L 101 CO2 23 - 32 mmol/L 20 (L) Anion Gap 0 - 15 mmol/L 20 (H) ALT 0 - 45 U/L 10 eGFR- >60 eGFR-All Other Races >60 RBC Folate 257 - 800 ng/mL 501 Prealbumin 18 - 45 mg/dL 25 CRP 0.0 - 1.0 mg/dL 0.3 Vitamin A 0.30 - 1.20 mg/L 0.52 Vitamin B1, WB 70 - 180 nmol/L 126 Vitamin B12 221 - 700 pg/mL 294 Magnesium 1.7 - 2.6 mg/dL 1.9 Phosphorus 2.5 - 4.5 mg/dL 3.3 Vitamin D 25 Hydroxy 31.0 - 80.0 ng/mL 43.0 PHYSICAL EXAMINATION: General appearance: well appearing, alert, in no acute distress, obese with Body mass index is 32 kg/m?. Neck: Supple, no adenopathy; thyroid symmetric, normal size, no bruits Back: no pain to palpation over spine or costovertebral angles; shins no longer tender to deep palpation Musculoskeletal: Spine range of motion normal. Muscular strength intact; Neuro: grossly intact ASSESSMENT/PLAN: 1. 829.0 Multiple fractures 1b: Osteoporosis - multiple fractures that she reports starting in her late teen years - improved DXA as noted above-- likely due at least in part to concerted effort to consume adequate calcium, D and protein - Continue Prolia inj q 6 mo - will not repeat DXA at this point tho due -- will not change the course of tx 2. V45.86 Gastric bypass status for obesity 3. 579.3 Other and unspecified postsurgical nonabsorption - continues to take supplements - will continue to periodically check selected minerals as well as prealbumin to help guide her dietary selections - labs placed today - needs to be following a formal Kcal/R and get back to lean prot and vegetables in addition to routine physical activity - discussed at length with her today - ok to start PSMF diet - referred today 3. Incontinence of stool - persistent issue - wt loss is next step in the process because she is not a candidate for sx due to her weight status 4. B12 deficiency OTC 1000 mcg daily is recommended at this time - will monitor levels and may or may not require snf supplement vs getting sufficient B12 from diet + MVI 5. Vitamin D deficiency - 50,000 IU D3 weekly - to continue 6. Diabetes - Type 2 (confirmed by testing)- not at goal with interval worsening noted per A1c - reviewed SMBG today - adjusted insulins as follows in response to LBS Lantus 15 units each evening Novolo units before meals + Sliding Scale Insulin to be used before meals for blood sugars > 200 150 - 200 - inject 0 additional units 201 - 250 - 2 units 251 - 300 -- 4 units 301 - 350 -- 6 units 351 - 400 -- 8 units The patient has my card, and knows how to reach my office. I thank you for the opportunity to participate in the continued care of this patient. Please do not hesitate to contact me if you have further concerns or questions. Pool Quigley, MS, RD, MD, CCD, FACN, FACP, FACE Diplomate, [place] [employer] Diplomate, [place] [employer] [facility] F-20 / [phone] / [id number] Pool Quigley MD 10/15/2017 1:39 PM Addendum Lantus 15 units each evening Novolo units before meals + Sliding Scale Insulin to be used before meals for blood sugars > 150 150 - 200 - inject 0 additional units 201 - 250 - 2 units 251 - 300 -- 4 units 301 - 350 -- 6 units 351 - 400 -- 8 units Protein sparing modified fast Referring Provider: SELF [200] Allergies As of Date: 10/15/2017 Noted Allergy Reaction BACTRIM (SULFAMETHOXAZOLE) 08/13/2011 14 - Other: See Comments Comments: Cardiac issues, CIPRO IV only CIPRO I.V. (CIPROFLOXACIN) 06/28/2006 4 - Hives 12 - Shortness of Breath DIMETAPP (PSEUDOEPHEDRINE-DM) 12/04/2005 11 - Vomiting Comments: violently ill when overdosed on it as child ERYTHROMYCIN 11/29/2005 Comments: hives ok with zithromax KEFLEX (CEPHALEXIN) 11/29/2005 Comments: OK to give zosyn per MD -- LATEX 11/29/2005 2 - Rash Comments: rash, breaks out everywhere, n/v , feels weak Can still eat food that is considered for latex allergies No allergic to latex foods per patient isaak 05/07/11 TETRACYCLINE 02/05/2006 Comments: hives Date Reviewed: 10/15/2017 Reviewed by: Pool Quigley - Fully Assessed Reason for Visit: Diabetes [34] Primary Visit Diagnosis: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 #:[id number] CONSULT TO NUTRITION THERAPY [1427] Order #: [id number]: 1 potassium chloride (K-TAB) 10 mEq tabletTake 1 tablet by mouth twice daily.Disp: 60 tabletRfl: 6 COMP METABOLIC PANEL [SQCMP] Order #: [id number] STANDING insulin glargine (LANTUS SOLOSTAR U-100 INSULIN) 100 unit/mL (3 mL) inpn15 units once daily each eveningDisp: 10 PenRfl: 11 insulin aspart U-100 (NOVOLOG) 100 unit/mL inpn8 units before meals + 2 u per 50 >200Disp: 10 PenRfl: 11 gabapentin (NEURONTIN) 100 mg [id number] mg daily at bedtimeDisp: 90 capsuleRfl: 11 Prescriptions as of 10/15/2017 Sig: INSULIN GLARGINE (U-100) 100 * 15 units once daily each even* INSULIN ASPART U-100 100 UNI* 8 units before meals + 2 u pe* GABAPENTIN 100 MG CAPSULE 300 mg daily at bedtime CLONAZEPAM 1 MG TABLET Take 1 tablet by mouth daily * MELOXICAM 15 MG TABLET Take 1 tablet by mouth once d* PHENTERMINE 37.5 MG CAPSULE Take 1 capsule by mouth once * LOSARTAN 25 MG TABLET Take 1 tablet by mouth once d* ASPIRIN 81 MG TABLET,DELAYED * TAKE ONE TABLET BY MOUTH DAILY METOPROLOL SUCCINATE ER 25 MG* TAKE ONE TABLET BY MOUTH DAILY FLUTICASONE 50 MCG/ACTUATION * Use 2 Sprays in each nostril * OMEPRAZOLE 20 MG CAPSULE,JAG* Take 1 capsule by mouth twice* DIAPER,BRIEF,ADULT,DISPOSABLE 1 Each as needed. Dx: N36.0,* ZOLPIDEM 10 MG TABLET Take 1 tablet by mouth at bed* BLOOD SUGAR DIAGNOSTIC STRIPS TEST BLOOD SUGAR 6 TO 8 TIMES* LANCETS Use as instructed to test blo* BLOOD-GLUCOSE METER KIT As directed PEN NEEDLE, DIABETIC 33 GAUGE* 1 Each as directed. Use with * AMLODIPINE 5 MG TABLET TAKE TWO TABLETS BY MOUTH WILIAN* QUETIAPINE 100 MG TABLET Take 1 tablet by mouth twice * DULOXETINE 60 MG CAPSULE,JAG* Take 1 capsule by mouth daily* LANCETS REGULAR MISC 1 Each as directed. Use 6 x d* CHOLECALCIFEROL (VITAMIN D3) * Take 1 capsule by mouth once * MULTIVITAMIN WITH CALCIUM AND* Take 1 tablet by mouth twice * BLOOD SUGAR DIAGNOSTIC, DISC * 1 Each as directed. 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 Essential Hypertension, Benign [I10] INVALID FOR* More... Hyperpotassemia [E87.5] INVALID FOR*04/15/2017 Abdominal pain, left lower quadrant [R10.32] INVALID FOR*04/15/2017 Abdominal pain, right lower quadrant [R10.31] INVALID FOR*04/15/2017 Abdominal Pain, Generalized [R10.84] INVALID FOR* HTN (hypertension) [I10] 04/15/2017 More... GERD (Gastroesophageal Reflux Disease) [K21.9] More... Irritable Bowel Syndrome [K58.9] RSD lower limb [G90.529] 04/15/2017 Open wound of abdominal wall, anterior, complic* 04/15/2017 Depressive disorder, not elsewhere classified [* More... Morbid obesity (HCC) [E66.01] INVALID FOR*12/25/2016 Dietary surveillance and counseling [Z71.3] INVALID FOR*04/15/2017 Gastric bypass status for obesity [Z98.84] INVALID FOR*04/15/2017 More... Nausea AND vomiting [R11.2] INVALID FOR*04/15/2017 Other and unspecified postsurgical nonabsorptio*INVALID FOR*04/15/2017 Osteoporosis [M81.0] INVALID FOR*08/20/2013 On total parenteral nutrition (TPN) [Z78.9] INVALID FOR*04/15/2017 Malabsorption [K90.9] INVALID FOR* Fracture [T14.8XXA] INVALID FOR*04/15/2017 Hernia of abdominal wall [K43.9] INVALID FOR* H/O hyperglycemia [Z86.39] INVALID FOR*04/15/2017 Diarrhea [R19.7] INVALID FOR* Insomnia [G47.00] INVALID FOR* More... Diabetic neuropathy, painful (HCC) [E11.40] INVALID FOR* More... DM (diabetes mellitus) (HCC) [E11.9] INVALID FOR* More... Unspecified intestinal malabsorption [K90.9] INVALID FOR* More... Osteoporosis [M81.0] INVALID FOR* More... Vitamin D deficiency [E55.9] INVALID FOR* More... Post-operative state [Z98.890] INVALID FOR*04/15/2017 Obesity (BMI 30.0-34.9) [E66.9] INVALID FOR* More... Chronic pain in right shoulder [M25.511, G89.29]INVALID FOR* More... Impingement syndrome of right shoulder [M75.41] INVALID FOR* More... Migraines [G43.909] INVALID FOR* DDD (degenerative disc disease), lumbar [M51.36]INVALID FOR* Acute pain of right shoulder [M25.511] INVALID FOR* Other instructions from your clinician: Lantus 15 units each evening Novolo units before meals + Sliding Scale Insulin to be used before meals for blood sugars > 150 150 - 200 - inject 0 additional units 201 - 250 - 2 units 251 - 300 -- 4 units 301 - 350 -- 6 units 351 - 400 -- 8 units Protein sparing modified fast Prescriptions ordered this encounter Disp Refills Start End POTASSIUM CHLORIDE ER 10 MEQ TABLET,* 60 t* 6 10/15/2017 Route: ORAL Sig: Take 1 tablet by mouth twice daily. INSULIN GLARGINE (U-100) 100 UNIT/ML* 10 P* 11 10/15/2017 Class: Med Update Si units once daily each evening INSULIN ASPART U-100 100 UNIT/ML [place]* 10 P* 11 10/15/2017 Class: Med Update Si units before meals + 2 u per 50 >200 GABAPENTIN 100 MG CAPSULE 90 c* 11 10/15/2017 10/15/2018 Si mg daily at bedtime Medications Discontinued During This Encounter gabapentin (NEURONTIN) 100 mg capsule 90 c* 3 05/17/2017 10/15/2017 Cmt: This prescription was filled on 03/12/2017. Any refills authorized will be placed on file. Route: ORAL Sig: Take 1 capsule by mouth once daily. Disc: Erroneous entry insulin glargine (LANTUS SOLOSTAR) 1* 10 P* 11 05/07/2017 10/15/2017 Si u twice daily Disc: Reason for discontinue is not on file. insulin aspart (NOVOLOG) 100 unit/mL* 10 P* 11 05/07/2017 10/15/2017 Si units before meals + 2 u per 50 >150 Disc: Reason for discontinue is not on file. gabapentin (NEURONTIN) 100 mg capsule 90 c* 11 05/31/2017 10/15/2017 Si mg daily at bedtime Disc: Reason for discontinue is not on file. Disposition: Return in about 3 months (around 01/15/2018) for diabetes / PSMF / osteoporosis . Follow-up and Disposition History Recorded Encounter Status:Closed by POOL QUIGLEY MD on 10/16/17 CNOV Observed: 09/19/2017 Status: COMPLETED Source: [place] 1:00 PM [facility] REPOSITORY Office Visit (INTMWS) ADRI GOYAL ([id number]) 1960 F TPN Date Time Provider Department 09/19/17 1:00 PM IBRAHIMA SARKAR ([facility]) IN[facility] During your visit today, we recorded the following information about you: Pulse Respiration Blood pressure Weight 88/minute 16/minute 118/72 99.3 kg Ibrahima Sarkar APRN.KIRT 09/19/2017 1:42 PM Signed CC: Adri Goyal is a 57 year old female who presents for weight loss medication follow up. HPI Currently taking Adipex. Starting Month 3 of 3 Denies: abdominal pain, nausea, vomiting, diarrhea, fevers, constipation, headache, change in urination, lightheadedness, weakness, numbness or tingling to arms or legs, edema, palpitations, sleep disturbances, impairment of concentration/attention, difficulty with memory, speech or language problems (particularly word-finding difficulties). Reports: Only a 1 pound weight loss since last visit. Reports being out of town the past 3 [address] a [address] trip to [place], [place] and [place]. Notes that although she avoided bread, mauritanian fries and fast food she did eat at restaurants quite often and was unable to participate in regular exercise and was confined to the car for much of the trip. If DM any hypo/hyperglycemia: Yes- had an episode of hyperglycemia with a reading of 300 while in [place] At the end of the visit patient made mention that since being on the lisinopril she has had an ongoing cough that disrupts her and her 's sleep. She is already taking Ambien for sleep, but the cough has become a concern. She also notes recent evaluation by [facility] and is a candidate for bilateral hearing aids and will be obtaining them soon. DIET Serving of fruits:1-2 Servings of vegetables:ANDgt;5 Servings of protein:1-2 Fluid intake:Water: 8 glasses per day and continues to drink 32 oz iced coffee per day. Do you Skip meals:YES Which meals do you tend to skip? Lunch, d/t stomach issues Eating away from home:YES while out of town. Has resumed her normal dietary habits Exercise routine: YES Frequency: 7 times per week walking on the treadmill at least 3 miles and walking the track at work when the weather is accecptable Weight/BMI Last 1 Encounter Wt Readings: Date: Wt: 08/19/2017 99.8 kg (220 lb) BMI 31.42 kg/(m2) Last visit Wt: 99.8 kg (220 lb) BMI: 31.57 kg/(m2) Weight change since last visit: How much: 7, How lon months Percent of Weight Loss: 4% Over 2 months ROS as above, otherwise non-contributory. Reviewed PMHx, PSHx, social Hx, medications and allergies. PHYSICAL EXAM BP 118/72 Pulse 88 Resp 16 Wt 99.3 kg (219 lb) BMI 31.42 kg/m2 General Appearance: well appearing, in no acute distress, alert Pysch: mood and affect broad and appropriate Skin: Skin color, texture, turgor normal for age; positives: healing bruise noted to patient right forearm with evidence of small abrasion. (patient reports falling into her fish tank at home) Lungs: Lungs clear to auscultation. No wheezing, rhonchi, rales Heart: RRR with faint murmur noted, gallop, or rubs. No ectopy ASSESSMENT/PLAN: 1. Essential hypertension - ICD9: 401.9, ICD10: I10 (primary diagnosis) - good control - Add losartan(Cozaar) - Discontinue lisinopril (Zestril/Prinivil) - Encouraged dietary sodium restriction/DASH diet - Recommended regular aerobic exercise. - Recommend home blood pressure monitoring, to bring results in on next visit - Follow up in 1 month for BP recheck. - Goal of BP ANDlt;140/90 2. Class 1 obesity without serious comorbidity with body mass index (BMI) of 31.0 to 31.9 in adult, unspecified obesity type - ICD9: 278.00, V85.31, ICD10: E66.9, Z68.31 - PHENTERMINE 37.5 MG CAPSULE - Continue diet consisting of counting carbohydrates. - Reduce sugary drinks of artificial juices and sodas and replace with water and low calorie Crystal Light. - Healthy Snack alternatives have been discussed and will attempt more fruits and vegetables. - encouraged 3 meals a day - Continueexercise or meaningful activity for 20 minutes at lest 3 times a day [employer] website checked and validated. All prescriptions have been APPROPRIATELY filled. No suspicious activity was identified.- 09/19/2017 by Ibrahima Sarkar APRN.WATER ATTENDANT - reviewed SE, medication expectations, required weight loss of 5%, monthly monitoring and medication duration of use (3 months on 6 months off) Prescription instructions reviewed with patient as applicable. Potential red flag symptoms discussed with the patient. Reviewed appropriate action plan to take if red flag symptoms occur. Patient agreeable to treatment plan. Ibrahima Sarkar APRN.WATER ATTENDANT Referring Provider: IBRAHIMA SARKAR ([facility]) [[id number]] Allergies As of Date: 09/19/2017 Noted Allergy Reaction BACTRIM (SULFAMETHOXAZOLE) 08/13/2011 14 - Other: See Comments Comments: Cardiac issues, CIPRO IV only CIPRO I.V. (CIPROFLOXACIN) 06/28/2006 4 - Hives 12 - Shortness of Breath DIMETAPP (PSEUDOEPHEDRINE-DM) 12/04/2005 11 - Vomiting Comments: violently ill when overdosed on it as child ERYTHROMYCIN 11/29/2005 Comments: hives ok with zithromax KEFLEX (CEPHALEXIN) 11/29/2005 Comments: OK to give zosyn per MD 06-28-06 LATEX 11/29/2005 2 - Rash Comments: rash, breaks out everywhere, n/v , feels weak Can still eat food that is considered for latex allergies No allergic to latex foods per patient isaak 05/07/11 TETRACYCLINE 02/05/2006 Comments: hives Date Reviewed: 09/19/2017 Reviewed by: Dorothy Gordillo Radio Adjuster - Fully Assessed Reason for Visit: Recheck [92] Primary Visit Diagnosis:Essential hypertension [I10] Other Visit Diagnoses:Class 1 obesity without serious comorbidity with body mass index (BMI) of 31.0 to 31.9 in adult, unspecified obesity type [E66.9, Z68.31] Obesity (BMI 30.0-34.9) [E66.9] Order(s):Phentermine HCl (ADIPEX-P) 37.5 mg capsuleTake 1 capsule by mouth once daily for 30 days.Disp: 30 capsuleRfl: 0 losartan (COZAAR) 25 mg tabletTake 1 tablet by mouth once daily.Disp: 30 tabletRfl: 2 Prescriptions as of 09/19/2017 Sig: PHENTERMINE 37.5 MG CAPSULE Take 1 capsule by mouth once * LOSARTAN 25 MG TABLET Take 1 tablet by mouth once d* ASPIRIN 81 MG TABLET,DELAYED * TAKE ONE TABLET BY MOUTH DAILY METOPROLOL SUCCINATE ER 25 MG* TAKE ONE TABLET BY MOUTH DAILY CLONAZEPAM 1 MG TABLET TAKE ONE TABLET BY MOUTH BRIAN* FLUTICASONE 50 MCG/ACTUATION * Use 2 Sprays in each nostril * OMEPRAZOLE 20 MG CAPSULE,JAG* Take 1 capsule by mouth twice* DIAPER,BRIEF,ADULT,DISPOSABLE 1 Each as needed. Dx: N36.0,* GABAPENTIN 100 MG CAPSULE 300 mg daily at bedtime ZOLPIDEM 10 MG TABLET Take 1 tablet by mouth at bed* ESTRADIOL 0.025 MG/24 HR WEEK* Apply 1 Patch as directed onc* GABAPENTIN 100 MG CAPSULE Take 1 capsule by mouth once * BLOOD SUGAR DIAGNOSTIC STRIPS TEST BLOOD SUGAR 6 TO 8 TIMES* LANCETS Use as instructed to test blo* BLOOD-GLUCOSE METER KIT As directed INSULIN GLARGINE (U-100) 100 * 30 u twice daily INSULIN ASPART U-100 100 UNI* 18 units before meals + 2 u p* PEN NEEDLE, DIABETIC 33 GAUGE* 1 Each as directed. Use with * MELOXICAM 15 MG TABLET Take 1 tablet by mouth once d* AMLODIPINE 5 MG TABLET TAKE TWO TABLETS BY MOUTH WILIAN* QUETIAPINE 100 MG TABLET Take 1 tablet by mouth twice * DULOXETINE 60 MG CAPSULE,JAG* Take 1 capsule by mouth daily* ETODOLAC 300 MG CAPSULE Take 1 capsule by mouth every* LANCETS REGULAR MISC 1 Each as directed. Use 6 x d* CHOLECALCIFEROL (VITAMIN D3) * Take 1 capsule by mouth once * MULTIVITAMIN WITH CALCIUM AND* Take 1 tablet by mouth twice * BLOOD SUGAR DIAGNOSTIC, DISC * 1 Each as directed. 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 Essential Hypertension, Benign [I10] INVALID FOR* More... Hyperpotassemia [E87.5] INVALID FOR*04/15/2017 Abdominal pain, left lower quadrant [R10.32] INVALID FOR*04/15/2017 Abdominal pain, right lower quadrant [R10.31] INVALID FOR*04/15/2017 Abdominal Pain, Generalized [R10.84] INVALID FOR* HTN (hypertension) [I10] 04/15/2017 More... GERD (Gastroesophageal Reflux Disease) [K21.9] More... Irritable Bowel Syndrome [K58.9] RSD lower limb [G90.529] 04/15/2017 Open wound of abdominal wall, anterior, complic* 04/15/2017 Depressive disorder, not elsewhere classified [* More... Morbid obesity (HCC) [E66.01] INVALID FOR*12/25/2016 Dietary surveillance and counseling [Z71.3] INVALID FOR*04/15/2017 Gastric bypass status for obesity [Z98.84] INVALID FOR*04/15/2017 More... Nausea AND vomiting [R11.2] INVALID FOR*04/15/2017 Other and unspecified postsurgical nonabsorptio*INVALID FOR*04/15/2017 Osteoporosis [M81.0] INVALID FOR*08/20/2013 On total parenteral nutrition (TPN) [Z78.9] INVALID FOR*04/15/2017 Malabsorption [K90.9] INVALID FOR* Fracture [T14.8XXA] INVALID FOR*04/15/2017 Hernia of abdominal wall [K43.9] INVALID FOR* H/O hyperglycemia [Z86.39] INVALID FOR*04/15/2017 Diarrhea [R19.7] INVALID FOR* Insomnia [G47.00] INVALID FOR* More... Diabetic neuropathy, painful (HCC) [E11.40] INVALID FOR* More... DM (diabetes mellitus) (HCC) [E11.9] INVALID FOR* More... Unspecified intestinal malabsorption [K90.9] INVALID FOR* More... Osteoporosis [M81.0] INVALID FOR* More... Vitamin D deficiency [E55.9] INVALID FOR* More... Post-operative state [Z98.890] INVALID FOR*04/15/2017 Obesity (BMI 30.0-34.9) [E66.9] INVALID FOR* More... Chronic pain in right shoulder [M25.511, G89.29]INVALID FOR* More... Impingement syndrome of right shoulder [M75.41] INVALID FOR* More... Migraines [G43.909] INVALID FOR* DDD (degenerative disc disease), lumbar [M51.36]INVALID FOR* Acute pain of right shoulder [M25.511] INVALID FOR* Prescriptions ordered this encounter Disp Refills Start End PHENTERMINE 37.5 MG CAPSULE 30 c* 0 09/19/2017 10/19/2017 Class: Print RX Route: ORAL Sig: Take 1 capsule by mouth once daily for 30 days. LOSARTAN 25 MG TABLET 30 t* 2 09/19/2017 Route: ORAL Sig: Take 1 tablet by mouth once daily. Medications Discontinued During This Encounter lisinopril (ZESTRIL, PRINIVIL) 10 mg* 30 t* 5 09/09/2017 09/19/2017 Cmt: This prescription was filled on 09/06/2017. Any refills authorized will be placed on file. Sig: TAKE ONE TABLET BY MOUTH DAILY Disc: Side Effects Phentermine HCl (ADIPEX-P) 37.5 mg c* 30 c* 0 08/19/2017 09/19/2017 Class: Print RX Route: ORAL Sig: Take 1 capsule by mouth once daily for 30 days. Disc: Reason for discontinue is not on file. Encounter Status:Closed by IBRAHIMA SARKAR CNP on 09/19/17 PROGRESS Observed: 09/19/2017 Status: COMPLETED Source: [place] 12:56 PM [facility] REPOSITORY HNO ID: [id number] Author: Ibrahima (Kirt) Antonina Service: (none) Author Type: Nurse Practitioner Type: Progress Notes Filed: 09/19/2017 1:42 PM Note Text: CC: Adri Goyal is a 57 year old female who presents for weight loss medication follow up. HPI Currently taking Adipex. Starting Month 3 of 3 Denies: abdominal pain, nausea, vomiting, diarrhea, fevers, constipation, headache, change in urination, lightheadedness, weakness, numbness or tingling to arms or legs, edema, palpitations, sleep disturbances, impairment of concentration/attention, difficulty with memory, speech or language problems (particularly word-finding difficulties). Reports: Only a 1 pound weight loss since last visit. Reports being out of town the past 3 [address] on a [address] trip to [place], [place] and [place]. Notes that although she avoided bread, mauritanian fries and fast food she did eat at restaurants quite often and was unable to participate in regular exercise and was confined to the car for much of the trip. If DM any hypo/hyperglycemia: Yes- had an episode of hyperglycemia with a reading of 300 while in [place] At the end of the visit patient made mention that since being on the lisinopril she has had an ongoing cough that disrupts her and her 's sleep. She is already taking Ambien for sleep, but the cough has become a concern. She also notes recent evaluation by [facility] and is a candidate for bilateral hearing aids and will be obtaining them soon. DIET Serving of fruits:1-2 Servings of vegetables:>5 Servings of protein:1-2 Fluid intake:Water: 8 glasses per day and continues to drink 32 oz iced coffee per day. Do you Skip meals:YES Which meals do you tend to skip? Lunch, d/t stomach issues Eating away from home:YES while out of town. Has resumed her normal dietary habits Exercise routine: YES Frequency: 7 times per week walking on the treadmill at least 3 miles and walking the track at work when the weather is accecptable Weight/BMI Last 1 Encounter Wt Readings: Date: Wt: 08/19/2017 99.8 kg (220 lb) BMI 31.42 kg/(m2) Last visit Wt: 99.8 kg (220 lb) BMI: 31.57 kg/(m2) Weight change since last visit: How much: 7, How lon months Percent of Weight Loss: 4% Over 2 months ROS as above, otherwise non-contributory. Reviewed PMHx, PSHx, social Hx, medications and allergies. PHYSICAL EXAM BP 118/72 Pulse 88 Resp 16 Wt 99.3 kg (219 lb) BMI 31.42 kg/m2 General Appearance: well appearing, in no acute distress, alert Pysch: mood and affect broad and appropriate Skin: Skin color, texture, turgor normal for age; positives: healing bruise noted to patient right forearm with evidence of small abrasion. (patient reports falling into her fish tank at home) Lungs: Lungs clear to auscultation. No wheezing, rhonchi, rales Heart: RRR with faint murmur noted, gallop, or rubs. No ectopy ASSESSMENT/PLAN: 1. Essential hypertension - ICD9: 401.9, ICD10: I10 (primary diagnosis) - good control - Add losartan(Cozaar) - Discontinue lisinopril (Zestril/Prinivil) - Encouraged dietary sodium restriction/DASH diet - Recommended regular aerobic exercise. - Recommend home blood pressure monitoring, to bring results in on next visit - Follow up in 1 month for BP recheck. - Goal of BP <140/90 2. Class 1 obesity without serious comorbidity with body mass index (BMI) of 31.0 to 31.9 in adult, unspecified obesity type - ICD9: 278.00, V85.31, ICD10: E66.9, Z68.31 - PHENTERMINE 37.5 MG CAPSULE - Continue diet consisting of counting carbohydrates. - Reduce sugary drinks of artificial juices and sodas and replace with water and low calorie Crystal Light. - Healthy Snack alternatives have been discussed and will attempt more fruits and vegetables. - encouraged 3 meals a day - Continueexercise or meaningful activity for 20 minutes at lest 3 times a day OARRS website checked and validated. All prescriptions have been APPROPRIATELY filled. No suspicious activity was identified.- 09/19/2017 by Ibrahima Sarkar APRN.WATER ATTENDANT - reviewed SE, medication expectations, required weight loss of 5%, monthly monitoring and medication duration of use (3 months on 6 months off) Prescription instructions reviewed with patient as applicable. Potential red flag symptoms discussed with the patient. Reviewed appropriate action plan to take if red flag symptoms occur. Patient agreeable to treatment plan. Ibrahima Sarkar APRN.[facility] BASIC METABOLIC PANL Collected: 08/30/2017 Status: F Source: [place] 1:44 PM [facility] REPOSITORY TYPE CODE TESTS RESULT OUT OF REFERENCE UNITS RANGE LAB GLU 74-99 mg/dL High Glucose 230 Result Comment: The [place] [employer] (ADA) provides guidance for cutoff values for fasting glucose and random glucose. The ADA defines fasting as no caloric intake for at least 8 hours. Fas ting plasma glucose results between 100 to 125 mg/dL indicate increased risk for diabetes (prediabetes). Fasting plasma glucose results greater than or equal to 126 mg/dL meet the criteria for diagnosis of diabetes. In the absence of unequivocal hyperglycemia, results should be confirmed by repeat testing. In a patient with classic symptoms of hyperglycemia or hyperglycemic crisis, random plasma glucose results greater than or equal to 200 mg/dL meet the criteria for diagnosis of diabetes. Reference: Standards of Medical Care in Diabetes 2016, [place] [employer]. Diabetes Care. 2016.39(Suppl 1). LAB BUN 7-21 mg/dL BUN 19 LAB CRET 0.58-0.96 mg/dL Creatinine 0.80 LAB NA 136-144 mmol/L Sodium 139 LAB K 3.7-5.1 mmol/L Potassium 4.6 LAB CL 97-105 mmol/L Chloride 100 LAB CO2 22-30 mmol/L CO2 24 LAB AGAP 9-18 mmol/L Anion Gap 15 LAB CA 8.5-10.2 mg/dL Calcium, Total 9.0 LAB GFRAA eGFR- Amer. >60 LAB GFRNAA . eGFR-All Other Races >60 Result Comment: eGFR (Estimated GFR) Units of measure: mL/min/1.73 meters squared eGFR is derived from the reexpressed MDRD Study equation using the following parameters: serum creatinine, age, gender and race. The creatinine assay has been calibrated to be traceable to IDMS. An eGFR <60 mL/min/1.73m2 for >3 months is consistent with chronic kidney disease. Refer to KDOQI guidelines for clinical interpretation. In patients with unstable renal function, e.g. those with acute kidney injury, the eGFR may not accurately reflect actual GFR. Performed By: #### BMP #### [facility] [address] [place], [place] [address] PROGRESS Observed: 08/19/2017 Status: COMPLETED Source: [place] 6:49 PM [facility] REPOSITORY HNO ID: [id number] Author: Sarai (PtAngie Santiago Service: (none) Author Type: Physical Therapist Type: Progress Notes Filed: 08/19/2017 6:50 PM Note Text: [facility] PHYSICAL THERAPY DISCONTINUANCE OF CARE Plan of Care Period: First Visit 06/13/2018 Last Visit Date:06/27/2017 Therapy Program: Patient did not return for follow up care as planned. Please refer to last visit note for interventions provided for this episode of care. Assessment: Unable to formally assess goal achievement due to non-compliance with therapy plan of care. Reason for Discontinuation of Care: Patient has not returned to therapy or scheduled additional follow-up appointments. Sarai Santiago, PT CNOV Observed: 08/19/2017 Status: COMPLETED Source: [place] 2:00 PM [facility] REPOSITORY Office Visit (INTMWS) ADRI GOYAL ([id number]) 1960 F TPN Date Time Provider Department 08/19/17 2:00 PM IBRAHIMA SARKAR ([facility]) INTMWS During your visit today, we recorded the following information about you: Temperature Pulse Respiration Blood pressure 97.8 degrees 82/minute 16/minute 118/70 Weight 99.8 kg Ibrahima Sarkar CNP 08/19/2017 2:26 PM Signed CC: Adri Smither is a 56 year old female who presents for weight loss medication follow up. HPI Currently taking Adipex. Starting Month 2 of 3 Denies: abdominal pain, nausea, vomiting, diarrhea, fevers, constipation, headache, change in urination, lightheadedness, weakness, numbness or tingling to arms or legs, edema, palpitations, sleep disturbances, impairment of concentration/attention, difficulty with memory, speech or language problems (particularly word-finding difficulties). Reports: 6lb weight loss. Recent bilateral ear infection which has impacted her ability to workout. Patient reports that she may require eustachian tubes to be placed d/t recurrent ear infections. If DM any hypo/hyperglycemia: Yes DIET Serving of fruits:1-2 Servings of vegetables:ANDgt;5 Servings of protein:1-2 Fluid intake:Water: 10 glasses per day, 2 24oz iced coffees Do you Skip meals:YES Which meals do you tend to skip? Breakfast Food Behaviors: Eat until full, has cut down on portions and does not allow her to prepare her meal portions Eating away from home:NO Nutrition consult placed No, insurance will not cover Exercise routine: YES Frequency: 4 times per week. Started taking stairs instead of elveator when applicable. Weight/BMI Last 1 Encounter Wt Readings: Date: Wt: 08/19/2017 99.8 kg (220 lb) BMI 31.57 kg/(m2) Last visit Wt: 99.7 kg (219 lb 11.2 oz) BMI: 31.52 kg/(m2) Weight change since last visit: How much: 6lbs, How lon month Percent of Weight Loss: ~3% Over 1 months ROS as above, otherwise non-contributory. Reviewed PMHx, PSHx, social Hx, medications and allergies. PHYSICAL EXAM BP 118/70 Pulse 82 Temp 36.6 ?C (97.8 ?F) (Temporal Artery) Resp 16 Wt 99.8 kg (220 lb) SpO2 99% BMI 31.57 kg/m2 General Appearance: well appearing, in no acute distress, alert Skin: Skin color, texture, turgor normal for age; Eyes: conjunctiva pink and moist, no icterus, sclera white, non-injected Lungs: Lungs clear to auscultation. No wheezing, rhonchi, rales Heart: RRR without murmur, gallop, or rubs. No ectopy - Continue diet consisting of counting calories and counting carbohydrates. - Reduce sugary drinks of artificial juices and sodas and replace with water and low calorie Crystal Light. - Healthy Snack alternatives have been discussed and will attempt more fruits and vegetables. - encouraged 3 meals a day - Continueexercise or meaningful activity for 20 minutes at lest 3 times a day OARRS website checked and validated. All prescriptions have been APPROPRIATELY filled. No suspicious activity was identified.- 08/19/2017 by Ibrahima Sarkar CNP - reviewed SE, medication expectations, required weight loss of 5%, monthly monitoring and medication duration of use (3 months on 6 months off) - Follow up in 1 month Prescription instructions reviewed with patient as applicable. Potential red flag symptoms discussed with the patient. Reviewed appropriate action plan to take if red flag symptoms occur. Patient agreeable to treatment plan. Ibrahima Sarkar CNP Referring Provider: IBRAHMIA SARKAR ([facility]) [[id number]] Allergies As of Date: 08/19/2017 Noted Allergy Reaction BACTRIM (SULFAMETHOXAZOLE) 08/13/2011 14 - Other: See Comments Comments: Cardiac issues, CIPRO IV only CIPRO I.V. (CIPROFLOXACIN) 06/28/2006 4 - Hives 12 - Shortness of Breath DIMETAPP (PSEUDOEPHEDRINE-DM) 12/04/2005 11 - Vomiting Comments: violently ill when overdosed on it as child ERYTHROMYCIN 11/29/2005 Comments: hives ok with zithromax KEFLEX (CEPHALEXIN) 11/29/2005 Comments: OK to give zosyn per MD 1-12-07 LATEX 11/29/2005 2 - Rash Comments: rash, breaks out everywhere, n/v , feels weak Can still eat food that is considered for latex allergies No allergic to latex foods per patient isaak 05/07/11 TETRACYCLINE 02/05/2006 Comments: hives Date Reviewed: 08/19/2017 Reviewed by: Ana Luisa Talley Ma - Fully Assessed Reason for Visit: Recheck [92] Cmt: 1 month follow up, currently taking Z- pac for double ear infection Reason For Visit History Recorded Visit Diagnoses:Class 1 obesity without serious comorbidity with body mass index (BMI) of 31.0 to 31.9 in adult, unspecified obesity type [E66.9, Z68.31] Obesity (BMI 30.0-34.9) [E66.9] Order(s):Phentermine HCl (ADIPEX-P) 37.5 mg capsuleTake 1 capsule by mouth once daily for 30 days.Disp: 30 capsuleRfl: 0 Prescriptions as of 08/19/2017 Sig: PHENTERMINE 37.5 MG CAPSULE Take 1 capsule by mouth once * METOPROLOL SUCCINATE ER 25 MG* Take 1 tablet by mouth once d* CLONAZEPAM 1 MG TABLET TAKE ONE TABLET BY MOUTH BRIAN* FLUTICASONE 50 MCG/ACTUATION * Use 2 Sprays in each nostril * OMEPRAZOLE 20 MG CAPSULE,JAG* Take 1 capsule by mouth twice* DIAPER,BRIEF,ADULT,DISPOSABLE 1 Each as needed. Dx: N36.0,* ASPIRIN 81 MG TABLET,DELAYED * Take 1 tablet by mouth once d* LISINOPRIL 10 MG TABLET Take 1 tablet by mouth once d* GABAPENTIN 100 MG CAPSULE 300 mg daily at bedtime ZOLPIDEM 10 MG TABLET Take 1 tablet by mouth at bed* ESTRADIOL 0.025 MG/24 HR WEEK* Apply 1 Patch as directed onc* GABAPENTIN 100 MG CAPSULE Take 1 capsule by mouth once * BLOOD SUGAR DIAGNOSTIC STRIPS TEST BLOOD SUGAR 6 TO 8 TIMES* LANCETS Use as instructed to test blo* BLOOD-GLUCOSE METER KIT As directed INSULIN GLARGINE (U-100) 100 * 30 u twice daily INSULIN ASPART U-100 100 UNI* 18 units before meals + 2 u p* PEN NEEDLE, DIABETIC 33 GAUGE* 1 Each as directed. Use with * MELOXICAM 15 MG TABLET Take 1 tablet by mouth once d* AMLODIPINE 5 MG TABLET TAKE TWO TABLETS BY MOUTH WILIAN* QUETIAPINE 100 MG TABLET Take 1 tablet by mouth twice * DULOXETINE 60 MG CAPSULE,JAG* Take 1 capsule by mouth daily* ETODOLAC 300 MG CAPSULE Take 1 capsule by mouth every* LANCETS REGULAR MISC 1 Each as directed. Use 6 x d* CHOLECALCIFEROL (VITAMIN D3) * Take 1 capsule by mouth once * MULTIVITAMIN WITH CALCIUM AND* Take 1 tablet by mouth twice * BLOOD SUGAR DIAGNOSTIC, DISC * 1 Each as directed. 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 Essential Hypertension, Benign [I10] INVALID FOR* More... Hyperpotassemia [E87.5] INVALID FOR*04/15/2017 Abdominal pain, left lower quadrant [R10.32] INVALID FOR*04/15/2017 Abdominal pain, right lower quadrant [R10.31] INVALID FOR*04/15/2017 Abdominal Pain, Generalized [R10.84] INVALID FOR* HTN (hypertension) [I10] 04/15/2017 More... GERD (Gastroesophageal Reflux Disease) [K21.9] More... Irritable Bowel Syndrome [K58.9] RSD lower limb [G90.529] 04/15/2017 Open wound of abdominal wall, anterior, complic* 04/15/2017 Depressive disorder, not elsewhere classified [* More... Morbid obesity (HCC) [E66.01] INVALID FOR*12/25/2016 Dietary surveillance and counseling [Z71.3] INVALID FOR*04/15/2017 Gastric bypass status for obesity [Z98.84] INVALID FOR*04/15/2017 More... Nausea AND vomiting [R11.2] INVALID FOR*04/15/2017 Other and unspecified postsurgical nonabsorptio*INVALID FOR*04/15/2017 Osteoporosis [M81.0] INVALID FOR*08/20/2013 On total parenteral nutrition (TPN) [Z78.9] INVALID FOR*04/15/2017 Malabsorption [K90.9] INVALID FOR* Fracture [T14.8XXA] INVALID FOR*04/15/2017 Hernia of abdominal wall [K43.9] INVALID FOR* H/O hyperglycemia [Z86.39] INVALID FOR*04/15/2017 Diarrhea [R19.7] INVALID FOR* Insomnia [G47.00] INVALID FOR* More... Diabetic neuropathy, painful (HCC) [E11.40] INVALID FOR* More... DM (diabetes mellitus) (HCC) [E11.9] INVALID FOR* More... Unspecified intestinal malabsorption [K90.9] INVALID FOR* More... Osteoporosis [M81.0] INVALID FOR* More... Vitamin D deficiency [E55.9] INVALID FOR* More... Post-operative state [Z98.890] INVALID FOR*04/15/2017 Obesity (BMI 30.0-34.9) [E66.9] INVALID FOR* More... Chronic pain in right shoulder [M25.511, G89.29]INVALID FOR* More... Impingement syndrome of right shoulder [M75.41] INVALID FOR* More... Migraines [G43.909] INVALID FOR* DDD (degenerative disc disease), lumbar [M51.36]INVALID FOR* Acute pain of right shoulder [M25.511] INVALID FOR* Prescriptions ordered this encounter Disp Refills Start End PHENTERMINE 37.5 MG CAPSULE 30 c* 0 08/19/2017 09/18/2017 Class: Print RX Route: ORAL Sig: Take 1 capsule by mouth once daily for 30 days. Medications Discontinued During This Encounter Phentermine HCl (ADIPEX-P) 37.5 mg c* 30 c* 0 07/25/2017 08/19/2017 Class: Print RX Route: ORAL Sig: Take 1 capsule by mouth once daily for 30 days. Disc: Reason for discontinue is not on file. Encounter Status:Closed by IBRAHIMA SARKAR CNP on 08/19/17 PROGRESS Observed: 08/19/2017 Status: COMPLETED Source: [place] 1:59 PM [facility] REPOSITORY HNO ID: [id number] Author: Ibrahima Sarkar Service: (none) Author Type: Nurse Practitioner Type: Progress Notes Filed: 08/19/2017 2:26 PM Note Text: CC: Adri Goyal is a 56 year old female who presents for weight loss medication follow up. HPI Currently taking Adipex. Starting Month 2 of 3 Denies: abdominal pain, nausea, vomiting, diarrhea, fevers, constipation, headache, change in urination, lightheadedness, weakness, numbness or tingling to arms or legs, edema, palpitations, sleep disturbances, impairment of concentration/attention, difficulty with memory, speech or language problems (particularly word-finding difficulties). Reports: 6lb weight loss. Recent bilateral ear infection which has impacted her ability to workout. Patient reports that she may require eustachian tubes to be placed d/t recurrent ear infections. If DM any hypo/hyperglycemia: Yes DIET Serving of fruits:1-2 Servings of vegetables:>5 Servings of protein:1-2 Fluid intake:Water: 10 glasses per day, 2 24oz iced coffees Do you Skip meals:YES Which meals do you tend to skip? Breakfast Food Behaviors: Eat until full, has cut down on portions and does not allow her to prepare her meal portions Eating away from home:NO Nutrition consult placed No, insurance will not cover Exercise routine: YES Frequency: 4 times per week. Started taking stairs instead of elveator when applicable. Weight/BMI Last 1 Encounter Wt Readings: Date: Wt: 08/19/2017 99.8 kg (220 lb) BMI 31.57 kg/(m2) Last visit Wt: 99.7 kg (219 lb 11.2 oz) BMI: 31.52 kg/(m2) Weight change since last visit: How much: 6lbs, How lon month Percent of Weight Loss: ~3% Over 1 months ROS as above, otherwise non-contributory. Reviewed PMHx, PSHx, social Hx, medications and allergies. PHYSICAL EXAM BP 118/70 Pulse 82 Temp 36.6 ?C (97.8 ?F) (Temporal Artery) Resp 16 Wt 99.8 kg (220 lb) SpO2 99% BMI 31.57 kg/m2 General Appearance: well appearing, in no acute distress, alert Skin: Skin color, texture, turgor normal for age; Eyes: conjunctiva pink and moist, no icterus, sclera white, non-injected Lungs: Lungs clear to auscultation. No wheezing, rhonchi, rales Heart: RRR without murmur, gallop, or rubs. No ectopy - Continue diet consisting of counting calories and counting carbohydrates. - Reduce sugary drinks of artificial juices and sodas and replace with water and low calorie Crystal Light. - Healthy Snack alternatives have been discussed and will attempt more fruits and vegetables. - encouraged 3 meals a day - Continueexercise or meaningful activity for 20 minutes at lest 3 times a day OARRS website checked and validated. All prescriptions have been APPROPRIATELY filled. No suspicious activity was identified.- 08/19/2017 by Ibrahima Sarkar CNP - reviewed SE, medication expectations, required weight loss of 5%, monthly monitoring and medication duration of use (3 months on 6 months off) - Follow up in 1 month Prescription instructions reviewed with patient as applicable. Potential red flag symptoms discussed with the patient. Reviewed appropriate action plan to take if red flag symptoms occur. Patient agreeable to treatment plan. Ibrahima Sarkar CNP CBC Collected: 08/16/2017 Status: F Source: [place] 3:07 PM [facility] RE[facility] TYPE CODE TESTS RESULT OUT OF REFERENCE UNITS RANGE LAB WBC 3.70-11.00 k/uL WBC 6.83 LAB RBC 3.90-5.20 m/uL RBC 4.72 LAB HGB 11.5-15.5 g/dL Hemoglobin 13.7 LAB HCT 36.0-46.0 % Hematocrit 42.1 LAB MCV 80.0-100.0 fL MCV 89.2 LAB MCH 26.0-34.0 pG MCH 29.0 LAB MCHC 30.5-36.0 g/dL MCHC 32.5 LAB RDWCV 11.5-15.0 % RDW-CV 14.0 LAB PLTCT 150-400 k/uL Platelet Count 275 LAB MPV 9.0-12.7 fL MPV 10.5 LAB ABSNUC <0.01 k/uL Absolute nRBC <0.01 Performed By: #### CBC, BMP, MG1 #### [facility] [address] [place], [place] [address] BASIC METABOLIC PANL Collected: 08/16/2017 Status: F Source: [place] 3:07 PM [facility] REPOSITORY TYPE CODE TESTS RESULT OUT OF REFERENCE UNITS RANGE LAB GLU 74-99 mg/dL Glucose 85 Result Comment: The [place] Diabetes [employer] (ADA) provides guidance for cutoff values for fasting glucose and random glucose. The ADA defines fasting as no caloric intake for at least 8 hours. Fas ting plasma glucose results between 100 to 125 mg/dL indicate increased risk for diabetes (prediabetes). Fasting plasma glucose results greater than or equal to 126 mg/dL meet the criteria for diagnosis of diabetes. In the absence of unequivocal hyperglycemia, results should be confirmed by repeat testing. In a patient with classic symptoms of hyperglycemia or hyperglycemic crisis, random plasma glucose results greater than or equal to 200 mg/dL meet the criteria for diagnosis of diabetes. Reference: Standards of Medical Care in Diabetes 2016, [place] [employer]. Diabetes Care. 2016.39(Suppl 1). LAB BUN 7-21 mg/dL BUN 20 LAB CRET 0.58-0.96 mg/dL Creatinine High 1.09 LAB NA 136-144 mmol/L Sodium 141 LAB K 3.7-5.1 mmol/L Potassium 4.3 LAB CL 97-105 mmol/L Chloride 102 LAB CO2 22-30 mmol/L CO2 25 LAB AGAP 9-18 mmol/L Anion Gap 14 LAB CA 8.5-10.2 mg/dL Calcium, Total 9.3 LAB GFRAA eGFR- Amer. >60 LAB GFRNAA . eGFR-All Other Races 52 Result Comment: eGFR (Estimated GFR) Units of measure: mL/min/1.73 meters squared eGFR is derived from the reexpressed MDRD Study equation using the following parameters: serum creatinine, age, gender and race. The creatinine assay has been calibrated to be traceable to IDMS. An eGFR <60 mL/min/1.73m2 for >3 months is consistent with chronic kidney disease. Refer to KDOQI guidelines for clinical interpretation. In patients with unstable renal function, e.g. those with acute kidney injury, the eGFR may not accurately reflect actual GFR. Performed By: #### CBC, BMP, MG1 #### [facility] [address] [place], [place] [address] MAGNESIUM Collected: 08/16/2017 Status: F Source: [place] 3:07 PM [facility] REPOSITORY TYPE CODE TESTS RESULT OUT OF REFERENCE UNITS RANGE LAB MG 1.7-2.3 mg/dL Magnesium 2.0 Performed By: #### CBC, BMP, MG1 #### [facility] [address] [place], [place] [address] PROGRESS Observed: 08/16/2017 Status: COMPLETED Source: [place] 2:46 PM [facility] REPOSITORY HNO ID: [id number] Author: Yady Sutherland Service: (none) Author Type: Stretch Machine Operator Type: Progress Notes Filed: 08/16/2017 2:48 PM Note Text: 48hr Lifewatch holter applied. Instructions given and patient verbalized understanding. Yady Sutherland MA CNNURSE Observed: 08/16/2017 Status: COMPLETED Source: [place] 2:45 PM [facility] REPOSITORY Nurse Visit (AGCARDWST) ADRI GOYAL ([id number]) 1960 F TPN Date Time Provider Department 08/16/17 2:45 PM NURSE [facility]ARD [facility] AGCARDWST During your visit today, we recorded the following information about you: Yady Sutherland MA 08/16/2017 2:48 PM Signed 48hr Lifewatch holter applied. Instructions given and patient verbalized understanding. Yady Sutherland MA Referring Provider: HARRISON STOUT [[id number]] Allergies As of Date: 08/16/2017 Noted Allergy Reaction BACTRIM (SULFAMETHOXAZOLE) 08/13/2011 14 - Other: See Comments Comments: Cardiac issues, CIPRO IV only CIPRO I.V. (CIPROFLOXACIN) 06/28/2006 4 - Hives 12 - Shortness of Breath DIMETAPP (PSEUDOEPHEDRINE-DM) 12/04/2005 11 - Vomiting Comments: violently ill when overdosed on it as child ERYTHROMYCIN 11/29/2005 Comments: hives ok with zithromax KEFLEX (CEPHALEXIN) 11/29/2005 Comments: OK to give zosyn per MD 1-12-07 LATEX 11/29/2005 2 - Rash Comments: rash, breaks out everywhere, n/v , feels weak Can still eat food that is considered for latex allergies No allergic to latex foods per patient isaak 05/07/11 TETRACYCLINE 02/05/2006 Comments: hives Date Reviewed: 08/16/2017 Reviewed by: Yady Sutherland - Fully Assessed Reason for Visit: Nurse Visit [792] Primary Visit Diagnosis:Palpitations [R00.2] Prescriptions as of 08/16/2017 Sig: PHENTERMINE 37.5 MG CAPSULE Take 1 capsule by mouth once * METOPROLOL SUCCINATE ER 25 MG* Take 1 tablet by mouth once d* CLONAZEPAM 1 MG TABLET TAKE ONE TABLET BY MOUTH BRIAN* FLUTICASONE 50 MCG/ACTUATION * Use 2 Sprays in each nostril * OMEPRAZOLE 20 MG CAPSULE,JAG* Take 1 capsule by mouth twice* DIAPER,BRIEF,ADULT,DISPOSABLE 1 Each as needed. Dx: N36.0,* ASPIRIN 81 MG TABLET,DELAYED * Take 1 tablet by mouth once d* LISINOPRIL 10 MG TABLET Take 1 tablet by mouth once d* GABAPENTIN 100 MG CAPSULE 300 mg daily at bedtime ZOLPIDEM 10 MG TABLET Take 1 tablet by mouth at bed* ESTRADIOL 0.025 MG/24 HR WEEK* Apply 1 Patch as directed onc* GABAPENTIN 100 MG CAPSULE Take 1 capsule by mouth once * BLOOD SUGAR DIAGNOSTIC STRIPS TEST BLOOD SUGAR 6 TO 8 TIMES* LANCETS Use as instructed to test blo* BLOOD-GLUCOSE METER KIT As directed INSULIN GLARGINE (U-100) 100 * 30 u twice daily INSULIN ASPART U-100 100 UNI* 18 units before meals + 2 u p* PEN NEEDLE, DIABETIC 33 GAUGE* 1 Each as directed. Use with * MELOXICAM 15 MG TABLET Take 1 tablet by mouth once d* AMLODIPINE 5 MG TABLET TAKE TWO TABLETS BY MOUTH WILIAN* QUETIAPINE 100 MG TABLET Take 1 tablet by mouth twice * DULOXETINE 60 MG CAPSULE,JAG* Take 1 capsule by mouth daily* ETODOLAC 300 MG CAPSULE Take 1 capsule by mouth every* LANCETS REGULAR MISC 1 Each as directed. Use 6 x d* CHOLECALCIFEROL (VITAMIN D3) * Take 1 capsule by mouth once * MULTIVITAMIN WITH CALCIUM AND* Take 1 tablet by mouth twice * BLOOD SUGAR DIAGNOSTIC, DISC * 1 Each as directed. 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 Essential Hypertension, Benign [I10] INVALID FOR* More... Hyperpotassemia [E87.5] INVALID FOR*04/15/2017 Abdominal pain, left lower quadrant [R10.32] INVALID FOR*04/15/2017 Abdominal pain, right lower quadrant [R10.31] INVALID FOR*04/15/2017 Abdominal Pain, Generalized [R10.84] INVALID FOR* HTN (hypertension) [I10] 04/15/2017 More... GERD (Gastroesophageal Reflux Disease) [K21.9] More... Irritable Bowel Syndrome [K58.9] RSD lower limb [G90.529] 04/15/2017 Open wound of abdominal wall, anterior, complic* 04/15/2017 Depressive disorder, not elsewhere classified [* More... Morbid obesity (HCC) [E66.01] INVALID FOR*12/25/2016 Dietary surveillance and counseling [Z71.3] INVALID FOR*04/15/2017 Gastric bypass status for obesity [Z98.84] INVALID FOR*04/15/2017 More... Nausea AND vomiting [R11.2] INVALID FOR*04/15/2017 Other and unspecified postsurgical nonabsorptio*INVALID FOR*04/15/2017 Osteoporosis [M81.0] INVALID FOR*08/20/2013 On total parenteral nutrition (TPN) [Z78.9] INVALID FOR*04/15/2017 Malabsorption [K90.9] INVALID FOR* Fracture [T14.8XXA] INVALID FOR*04/15/2017 Hernia of abdominal wall [K43.9] INVALID FOR* H/O hyperglycemia [Z86.39] INVALID FOR*04/15/2017 Diarrhea [R19.7] INVALID FOR* Insomnia [G47.00] INVALID FOR* More... Diabetic neuropathy, painful (HCC) [E11.40] INVALID FOR* More... DM (diabetes mellitus) (HCC) [E11.9] INVALID FOR* More... Unspecified intestinal malabsorption [K90.9] INVALID FOR* More... Osteoporosis [M81.0] INVALID FOR* More... Vitamin D deficiency [E55.9] INVALID FOR* More... Post-operative state [Z98.890] INVALID FOR*04/15/2017 Obesity (BMI 30.0-34.9) [E66.9] INVALID FOR* More... Chronic pain in right shoulder [M25.511, G89.29]INVALID FOR* More... Impingement syndrome of right shoulder [M75.41] INVALID FOR* More... Migraines [G43.909] INVALID FOR* DDD (degenerative disc disease), lumbar [M51.36]INVALID FOR* Acute pain of right shoulder [M25.511] INVALID FOR* Encounter Status:Closed by YADY SUTHERLAND MA on 08/16/17 PROGRESS Observed: 08/16/2017 Status: COMPLETED Source: [place] 2:27 PM [facility] REPOSITORY HNO ID: [id number] Author: Harrison Stout Service: (none) Author Type: Physician Type: Progress Notes Filed: 08/16/2017 2:55 PM Note Text: PERTINENT CARDIAC HISTORY Tachycardia DM HTN HL - diet controlled ADHERENCE TO GUIDELINES ARBEN-I or ARB for HF with prior LVEF<40 (NQF 0081) - N/A ASA or Plavix for ASHD (NQF 0067) - N/A Beta izaiah for ASHD with prior UT or prior LVEF<40 (NQF 0070) - N/A Beta izaiah for HF with prior LVEF<40 (NQF 0083) - N/A ARBEN-I or ARB for ASHD with DM or prior LVEF<40 (NQF 0066) - N/A Statin therapy for ASHD or FHL or DM - N/A BMI documented and plan if >25 (NQF 0421) - lifestyle recommendation form Tobacco use screening and referral (NQ 0028) - lifestyle recommendation form Recommendation for whole food, plant based diet - lifestyle recommendation form CLINICAL IMPRESSION/PLAN: Adri Goyal has persistent sinus tachycardia which is likely physiologic. There is no evidence of any active metabolic or physiologic stress. We will check echocardiogram to assess LV function. I recommend weaning her Norvasc and increasing lisinopril as needed for blood pressure control. Small dose of beta izaiah may lower her overall heart rate and may be beneficial. She will have a 48-hour Holter to assess diurnal variation and heart rate response to activity. An echocardiogram will be done to assess LV function. CBC and basic profile will be checked. I will tentatively see her in 3 months. I would avoid medications which could have a potential tachycardic effect. Phentermine may be one, but she is motivated to try to get her weight under better control and I would continue this for the time. Thank you for asking me to see and make recommendations on Adri Goyal. This report is available to you in the shared medical record. Written and verbal health teaching given to patient, patient verbalizes understanding and agrees with treatment plan. This note was generated using [employer] voice recognition system, and there may be some incorrect words, spellings, and punctuation that were not noted in checking the note before saving. DIAGNOSIS FOR VISIT: Sinus tachycardia Hypertension HISTORY OF PRESENT ILLNESS Adri Goyal is a 56-year-old woman with long-standing history of sinus tachycardia was seen in consultation at the request of Dr. Jimenez. She has chronic hypertension as well. She has been on Norvasc and recently started on lisinopril. According to her previous record, her average heart rate has been in the 95-100 range. She is largely unaware of her heart rate. Occasionally, when it gets above 100 she feels that it is too fast, but is usually not troubled by it. She denies any sensation of irregularity. She has undergone previous stress testing and reports that she also had coronary angiography, but I cannot find record of that. She has no known history of coronary disease. She denies orthopnea. Her exercise tolerance has been stable. She denies TIAs, amaurosis, claudication, syncope. She's had multiple abdominal surgeries for repair of the damage done by necrotizing fasciitis. She has chronic diabetes, hypertension and hyperlipidemia. She has no known thyroid disease. She has long-standing history of type 1 diabetes. ALLERGIES: ALLERGIES Allergen Reactions - Bactrim [Sulfametho* Other: See Comments Cardiac issues, CIPRO IV only - Cipro I.V. [Ciprofl* Hives, Shortness of Breath - Dimetapp [Pseudoeph* Vomiting violently ill when overdosed on it as child - Erythromycin hives ok with zithromax - Keflex [Cephalexin] OK to give zosyn per MD 06-28-06 - Latex Rash rash, breaks out everywhere, n/v , feels weak Can still eat food that is considered for latex allergies No allergic to latex foods per patient isaak 05/07/11 - Tetracycline hives CURRENT OUTPATIENT MEDICATIONS: Phentermine HCl (ADIPEX-P) 37.5 mg capsule Take 1 capsule by mouth once daily for 30 days. metoprolol succinate ER (TOPROL XL) 25 mg 24 hr tablet Take 1 tablet by mouth once daily. clonazePAM (KLONOPIN) 1 mg tablet TAKE ONE TABLET BY MOUTH DAILY AT BEDTIME fluticasone (FLONASE) 50 mcg/actuation nasal spray Use 2 Sprays in each nostril once daily. omeprazole (PRILOSEC) 20 mg capsule Take 1 capsule by mouth twice daily. Diaper,Brief, Adult,Disposable (PREVAIL ADJUST UNDERWEAR KIMBERLEY- ) misc 1 Each as needed. Dx: N36.0, K58.9 aspirin, enteric coated (ASPIRIN, ENTERIC COATED) 81 mg EC tablet Take 1 tablet by mouth once daily. lisinopril (ZESTRIL, PRINIVIL) 10 mg tablet Take 1 tablet by mouth once daily. gabapentin (NEURONTIN) 100 mg capsule 300 mg daily at bedtime zolpidem (AMBIEN) 10 mg tab Take 1 tablet by mouth at bedtime as needed. gabapentin (NEURONTIN) 100 mg capsule Take 1 capsule by mouth once daily. blood sugar diagnostic (ONETOUCH ULTRA TEST) test strip TEST BLOOD SUGAR 6 TO 8 TIMES DAILY Dx: E11.9 Insulin:yes Lancets lancets Use as instructed to test blood sugars 8 times daily E11.9 Blood-Glucose Meter (ONETOUCH ULTRA2) monitoring kit As directed insulin glargine (LANTUS SOLOSTAR) 100 unit/mL (3 mL) inpn 30 u twice daily insulin aspart (NOVOLOG) 100 unit/mL inpn 18 units before meals + 2 u per 50 >150 pen needle, diabetic 33 gauge x 5/32 ndle 1 Each as directed. Use with injections 4x daily E11.9 meloxicam (MOBIC) 15 mg tablet Take 1 tablet by mouth once daily. amLODIPine (NORVASC) 5 mg tablet TAKE TWO TABLETS BY MOUTH DAILY QUEtiapine (SEROQUEL) 100 mg tablet Take 1 tablet by mouth twice daily. DULoxetine (CYMBALTA) 60 mg capsule Take 1 capsule by mouth daily at bedtime. etodolac (LODINE) 300 mg capsule Take 1 capsule by mouth every 8 hours. LANCETS REGULAR MISC 1 Each as directed. Use 6 x daily cholecalciferol, Vitamin D3, (VITAMIN D3) 50,000 unit cap capsule Take 1 capsule by mouth once each week. Take with your largest meal of the day Multivits,CalciumAND Minerals-FA 267 mcg tab Take 1 tablet by mouth twice daily. Centrum Adult Chewables MVI with minerals is preferred; must be chewable Blood Sugar Diagnostic, Disc strp 1 Each as directed. CHECK BLOOD GLUCOSE EIGHT TIMES PER DAY/ estradiol (CLIMARA) 0.025 mg/24 hr Apply 1 Patch as directed once each week. PAST MEDICAL HISTORY Diagnosis Date - Abdominal pain, generalized CHRONIC PAIN MANAGEMENT - Bacterial overgrowth syndrome - Bowel disease - Depressive disorder, not elsewhere classified on cymbalta - Diabetes mellitus (HCC) 1980s on insulin since 1982 - Fracture - GERD (gastroesophageal reflux disease) resolved since 2004 - HTN (hypertension) resolved since 2004 - Incisional hernia without mention of obstruction or gangrene - Irritable bowel syndrome - Necrotizing fasciitis (HCC) - Obesity, unspecified 05-23-10 STATED BMI 35.91 Ht: 70 Wt: 250 lbs - Open wound of abdominal wall, anterior, complicated 1 - PMH - PAST MEDICAL HISTORY OF irritable bowel syndrome, necrotizing fasciitis, hypertension, diabetes, GERD, gastritis, - PMH - PAST MEDICAL HISTORY OF 09/2009 left foot break - RSD lower limb seen by pain management PAST SURGICAL HISTORY Procedure Laterality Date - ARTHROS SHLDR DX W/WO SYNV BX Right 05/03/2017 Right shoulder arthroscopy, glenoid chondroplasty - FEEDING TUBE-SPECIFY J-tube - GASTRIC BYPASS, LION-EN-Y 04/27/11 - HYSTERECTOMY HX 2003 - PAST SURGICAL HISTORY OF colostomy, partial colectomy,OSMAR/BSO, right hand tendon rplaced, fatty tumor excision back and thigh,ulnar nreve surgery bilaterally, tonsillectomy - PAST SURGICAL HISTORY OF 2005 repair of fistulas - PAST SURGICAL HISTORY OF 2005 translupe colostomy - PAST SURGICAL HISTORY OF 2004 debredement due to necratizing fascitis - PAST SURGICAL HISTORY OF 2004 hysterectomy - PAST SURGICAL HISTORY OF STATES > 113 ABDOMINAL SURGERIES - PAST SURGICAL HISTORY OF resversal of colostomy - PAST SURGICAL HISTORY OF 10/2015 hernia repair/abdominal muscle repair - REPAIR COMPL ROTATOR CUFF AVULSN,CHR Right 05/03/2017 Glenoid chondroplasty, labtral debridement, SAD - TONSILLECTOMY HX 1977 FAMILY HISTORY Problem Relation Age of Onset - Bipolar [OTHER] Mother - Diabetes Father Type 2 - Heart Father hypertension - Colon Cancer Paternal Grandfather dx'd age 61? - Hypertension Paternal Grandfather - Diabetes Paternal Grandfather Type 2 - Heart Daughter - Breast Cancer Paternal Aunt - Hypoplastic Left heart [OTHER] Son Social History Marital status: Spouse name: dalia Years of education: 13 Number of children: 4 Occupational History Occupation Employer Comment disabled Social History Main Topics Smoking status: Never Smoker Smokeless status: Never Used Alcohol use: No Drug use: No Sexual activity: Yes Partners with: Male REVIEW OF SYSTEMS: General: No chills, fever, weight loss, night sweats. SHEENT: No change in vision or auditory acuity. Respiratory: No productive cough. Cardiac: As noted above. GI: No melena. : No dysuria. Musculoskeletal: Chronic myalgias. Neurologic: No strokes. Chronic headaches. Psychiatric: No depression. Endocrine: Positive for diabetes. Hematologic: History of anemia. PHYSICAL EXAMINATION: S/he is alert and in no distress VITAL SIGNS: BP 102/76 Pulse 76 Ht 5' 10 (1.78m) Wt 219 lb 11.2 oz (99.7kg) BMI 31.52 kg/(m2). SHEENT: Skin is warm and dry. Pupils are round and reactive. No xanthelasmas appreciated. Pharynx is benign. There is no oral cyanosis. Neck: supple. No adenopathy or thyroid enlargement. Chest: Clear to percussion and auscultation. Trachea is midline. Air entry is equal. There is no chest wall tenderness. Cardiac: Regular rhythm. S1 and S2 are normal. PMI is nondisplaced. There is a soft systolic ejection murmur. No click is heard. Carotids are brisk without bruits. JVP is less than 10 cm. Abdomen: Soft and nontender. There are no pulsatile masses or bruits. No liver enlargement. Bowel sounds are active. : Deferred. Extremities: No edema. Pulses are intact and symmetrical. No clubbing or cyanosis. No femoral bruits. Neurologic: Grossly normal motor and sensory. S/he is alert and oriented x4. Musculoskeletal: No joint deformities. Previous records were reviewed. Echocardiogram was personally reviewed. Left ventricular function is normal. There is no significant valvular disease. EKG shows sinus tachycardia and is otherwise within normal limits. There is no significant change. TSH is normal. There is no recent CBC or basic profile. Electronically Signed: Harrison Stout MD August 16, 2017 2:42 PM CC: LEON JIMENEZ MD CNOV Observed: 08/16/2017 Status: COMPLETED Source: [place] 2:00 PM [facility] REPOSITORY Office Visit (AGCARDWST) ADRI GOYAL ([id number]) 1960 F TPN Date Time Provider Department 08/16/17 2:00 PM HARRISON STOUT AGCARDWSWally During your visit today, we recorded the following information about you: Pulse Blood pressure Weight Height 76/minute 102/76 99.7 kg 1.778 m Harrison Stout MD 08/16/2017 2:55 PM Signed PERTINENT CARDIAC HISTORY Tachycardia DM HTN HL - diet controlled ADHERENCE TO GUIDELINES ARBEN-I or ARB for HF with prior LVEFANDlt;40 (NQF 0081) - N/A ASA or Plavix for ASHD (NQF 0067) - N/A Beta izaiah for ASHD with prior UT or prior LVEFANDlt;40 (NQF 0070) - N/A Beta izaiah for HF with prior LVEFANDlt;40 (NQF 0083) - N/A ARBEN-I or ARB for ASHD with DM or prior LVEFANDlt;40 (NQF 0066) - N/A Statin therapy for ASHD or FHL or DM - N/A BMI documented and plan if ANDgt;25 (NQF 0421) - lifestyle recommendation form Tobacco use screening and referral (NQF 0028) - lifestyle recommendation form Recommendation for whole food, plant based diet - lifestyle recommendation form CLINICAL IMPRESSION/PLAN: Adri Goyal has persistent sinus tachycardia which is likely physiologic. There is no evidence of any active metabolic or physiologic stress. We will check echocardiogram to assess LV function. I recommend weaning her Norvasc and increasing lisinopril as needed for blood pressure control. Small dose of beta izaiah may lower her overall heart rate and may be beneficial. She will have a 48-hour Holter to assess diurnal variation and heart rate response to activity. An echocardiogram will be done to assess LV function. CBC and basic profile will be checked. I will tentatively see her in 3 months. I would avoid medications which could have a potential tachycardic effect. Phentermine may be one, but she is motivated to try to get her weight under better control and I would continue this for the time. Thank you for asking me to see and make recommendations on Adri Goyal. This report is available to you in the shared medical record. Written and verbal health teaching given to patient, patient verbalizes understanding and agrees with treatment plan. This note was generated using [employer] voice recognition system, and there may be some incorrect words, spellings, and punctuation that were not noted in checking the note before saving. DIAGNOSIS FOR VISIT: Sinus tachycardia Hypertension HISTORY OF PRESENT ILLNESS Adri Goyal is a 56-year-old woman with long-standing history of sinus tachycardia was seen in consultation at the request of Dr. Jimenez. She has chronic hypertension as well. She has been on Norvasc and recently started on lisinopril. According to her previous record, her average heart rate has been in the 95-100 range. She is largely unaware of her heart rate. Occasionally, when it gets above 100 she feels that it is too fast, but is usually not troubled by it. She denies any sensation of irregularity. She has undergone previous stress testing and reports that she also had coronary angiography, but I cannot find record of that. She has no known history of coronary disease. She denies orthopnea. Her exercise tolerance has been stable. She denies TIAs, amaurosis, claudication, syncope. She's had multiple abdominal surgeries for repair of the damage done by necrotizing fasciitis. She has chronic diabetes, hypertension and hyperlipidemia. She has no known thyroid disease. She has long-standing history of type 1 diabetes. ALLERGIES: ALLERGIES Allergen Reactions - Bactrim [Sulfametho* Other: See Comments Cardiac issues, CIPRO IV only - Cipro I.V. [Ciprofl* Hives, Shortness of Breath - Dimetapp [Pseudoeph* Vomiting violently ill when overdosed on it as child - Erythromycin hives ok with zithromax - Keflex [Cephalexin] OK to give zosyn per MD 06-28-06 - Latex Rash rash, breaks out everywhere, n/v , feels weak Can still eat food that is considered for latex allergies No allergic to latex foods per patient [facility] 05/07/11 - Tetracycline hives CURRENT OUTPATIENT MEDICATIONS: Phentermine HCl (ADIPEX-P) 37.5 mg capsule Take 1 capsule by mouth once daily for 30 days. metoprolol succinate ER (TOPROL XL) 25 mg 24 hr tablet Take 1 tablet by mouth once daily. clonazePAM (KLONOPIN) 1 mg tablet TAKE ONE TABLET BY MOUTH DAILY AT BEDTIME fluticasone (FLONASE) 50 mcg/actuation nasal spray Use 2 Sprays in each nostril once daily. omeprazole (PRILOSEC) 20 mg capsule Take 1 capsule by mouth twice daily. Diaper,Brief, Adult,Disposable (PREVAIL ADJUST UNDERWEAR KIMBERLEY- ) misc 1 Each as needed. Dx: N36.0, K58.9 aspirin, enteric coated (ASPIRIN, ENTERIC COATED) 81 mg EC tablet Take 1 tablet by mouth once daily. lisinopril (ZESTRIL, PRINIVIL) 10 mg tablet Take 1 tablet by mouth once daily. gabapentin (NEURONTIN) 100 mg capsule 300 mg daily at bedtime zolpidem (AMBIEN) 10 mg tab Take 1 tablet by mouth at bedtime as needed. gabapentin (NEURONTIN) 100 mg capsule Take 1 capsule by mouth once daily. blood sugar diagnostic (ONETOUCH ULTRA TEST) test strip TEST BLOOD SUGAR 6 TO 8 TIMES DAILY Dx: E11.9 Insulin:yes Lancets lancets Use as instructed to test blood sugars 8 times daily E11.9 Blood-Glucose Meter (Budding BiologistTOUCH ULTRA2) monitoring kit As directed insulin glargine (LANTUS SOLOSTAR) 100 unit/mL (3 mL) inpn 30 u twice daily insulin aspart (NOVOLOG) 100 unit/mL inpn 18 units before meals + 2 u per 50 ANDgt;150 pen needle, diabetic 33 gauge x 5/32ANDquot; ndle 1 Each as directed. Use with injections 4x daily E11.9 meloxicam (MOBIC) 15 mg tablet Take 1 tablet by mouth once daily. amLODIPine (NORVASC) 5 mg tablet TAKE TWO TABLETS BY MOUTH DAILY QUEtiapine (SEROQUEL) 100 mg tablet Take 1 tablet by mouth twice daily. DULoxetine (CYMBALTA) 60 mg capsule Take 1 capsule by mouth daily at bedtime. etodolac (LODINE) 300 mg capsule Take 1 capsule by mouth every 8 hours. LANCETS REGULAR MISC 1 Each as directed. Use 6 x daily cholecalciferol, Vitamin D3, (VITAMIN D3) 50,000 unit cap capsule Take 1 capsule by mouth once each week. Take with your largest meal of the day Multivits,CalciumANDamp; Minerals-FA 267 mcg tab Take 1 tablet by mouth twice daily. Centrum Adult Chewables MVI with minerals is preferred; must be chewable Blood Sugar Diagnostic, Disc strp 1 Each as directed. CHECK BLOOD GLUCOSE EIGHT TIMES PER DAY/ estradiol (CLIMARA) 0.025 mg/24 hr Apply 1 Patch as directed once each week. PAST MEDICAL HISTORY Diagnosis Date - Abdominal pain, generalized CHRONIC PAIN MANAGEMENT - Bacterial overgrowth syndrome - Bowel disease - Depressive disorder, not elsewhere classified on cymbalta - Diabetes mellitus (HCC) 1980s on insulin since 1982 - Fracture - GERD (gastroesophageal reflux disease) resolved since 2004 - HTN (hypertension) resolved since 2004 - Incisional hernia without mention of obstruction or gangrene - Irritable bowel syndrome - Necrotizing fasciitis (HCC) - Obesity, unspecified 05-23-10 STATED BMI 35.91 Ht: 70ANDquot; Wt: 250 lbs - Open wound of abdominal wall, anterior, complicated 1 - PMH - PAST MEDICAL HISTORY OF irritable bowel syndrome, necrotizing fasciitis, hypertension, diabetes, GERD, gastritis, - PMH - PAST MEDICAL HISTORY OF 09/2009 left foot break - RSD lower limb seen by pain management PAST SURGICAL HISTORY Procedure Laterality Date - ARTHROS SHLDR DX W/WO SYNV BX Right 05/03/2017 Right shoulder arthroscopy, glenoid chondroplasty - FEEDING TUBE-SPECIFY J-tube - GASTRIC BYPASS, LION-EN-Y 04/27/11 - HYSTERECTOMY HX 2003 - PAST SURGICAL HISTORY OF colostomy, partial colectomy,OSMAR/BSO, right hand tendon rplaced, fatty tumor excision back and thigh,ulnar nreve surgery bilaterally, tonsillectomy - PAST SURGICAL HISTORY OF 2005 repair of fistulas - PAST SURGICAL HISTORY OF 2005 translupe colostomy - PAST SURGICAL HISTORY OF 2004 debredement due to necratizing fascitis - PAST SURGICAL HISTORY OF 2004 hysterectomy - PAST SURGICAL HISTORY OF ANDquot;STATES ANDgt; 113 ABDOMINAL SURGERIESANDquot; - PAST SURGICAL HISTORY OF resversal of colostomy - PAST SURGICAL HISTORY OF 10/2015 hernia repair/abdominal muscle repair - REPAIR COMPL ROTATOR CUFF AVULSN,CHR Right 05/03/2017 Glenoid chondroplasty, labtral debridement, SAD - TONSILLECTOMY HX 1977 FAMILY HISTORY Problem Relation Age of Onset - Bipolar [OTHER] Mother - Diabetes Father Type 2 - Heart Father hypertension - Colon Cancer Paternal Grandfather dx'd age 61? - Hypertension Paternal Grandfather - Diabetes Paternal Grandfather Type 2 - Heart Daughter - Breast Cancer Paternal Aunt - Hypoplastic Left heart [OTHER] Son Social History Marital status: Spouse name: dalia Years of education: 13 Number of children: 4 Occupational History Occupation Employer Comment disabled Social History Main Topics Smoking status: Never Smoker Smokeless status: Never Used Alcohol use: No Drug use: No Sexual activity: Yes Partners with: Male REVIEW OF SYSTEMS: General: No chills, fever, weight loss, night sweats. SHEENT: No change in vision or auditory acuity. Respiratory: No productive cough. Cardiac: As noted above. GI: No melena. : No dysuria. Musculoskeletal: Chronic myalgias. Neurologic: No strokes. Chronic headaches. Psychiatric: No depression. Endocrine: Positive for diabetes. Hematologic: History of anemia. PHYSICAL EXAMINATION: S/he is alert and in no distress VITAL SIGNS: BP 102/76 Pulse 76 Ht 5' 10ANDquot; (1.78m) Wt 219 lb 11.2 oz (99.7kg) BMI 31.52 kg/(m2). SHEENT: Skin is warm and dry. Pupils are round and reactive. No xanthelasmas appreciated. Pharynx is benign. There is no oral cyanosis. Neck: supple. No adenopathy or thyroid enlargement. Chest: Clear to percussion and auscultation. Trachea is midline. Air entry is equal. There is no chest wall tenderness. Cardiac: Regular rhythm. S1 and S2 are normal. PMI is nondisplaced. There is a soft systolic ejection murmur. No click is heard. Carotids are brisk without bruits. JVP is less than 10 cm. Abdomen: Soft and nontender. There are no pulsatile masses or bruits. No liver enlargement. Bowel sounds are active. : Deferred. Extremities: No edema. Pulses are intact and symmetrical. No clubbing or cyanosis. No femoral bruits. Neurologic: Grossly normal motor and sensory. S/he is alert and oriented x4. Musculoskeletal: No joint deformities. Previous records were reviewed. Echocardiogram was personally reviewed. Left ventricular function is normal. There is no significant valvular disease. EKG shows sinus tachycardia and is otherwise within normal limits. There is no significant change. TSH is normal. There is no recent CBC or basic profile. Electronically Signed: Harrison Stout MD August 16, 2017 2:42 PM CC: MD Harrison DELATORRE MD 08/16/2017 2:27 PM Signed LIFESTYLE CHANGE A healthy lifestyle is the most important component of your overall treatment plan. Please give serious thought to the following areas and commit to making travel rn or changes. EAT A WHOLE FOOD, PLANT BASED DIET The nutrition your body gets is more important than the medicine you take. What matters most is the overall way you eat. We encourage you to minimize the use of animal products (which include dairy and all meats except fatty fish) and use whole, unprocessed plant foods to provide your protein, vitamins and other nutrients. We have a lot of information to share with you on this topic. We also hold Shared Medical Appointments, where you can come visit with Dr. Stout in the company of other patients and spend over an hour talking about the challenges of changing the way you eat. This is not a ANDquot;dietANDquot;. It is a way of life that you will keep with you. EXERCISE REGULARLY It is not important to spend hours in the gym, lifting weights and perspiring heavily. A total of 2-3 hours per week of aerobic (causing you to be moderately short of breath) exercise is sufficient to improve your health. Talk to us before you begin a new exercise program, if you have heart disease or experience shortness of breath or chest pain. REDUCE STRESS Chronic emotional and physical stress leads to disease. Ways of reducing stress include meditation, visualization, prayer, yoga and other forms of relaxation therapy. Consistency is the palomo. Find a technique that works for you and do it every day. CULTIVATE RELATIONSHIPS Loneliness and isolation have a major negative impact on health. Seek out others who can love, care for and nurture you. Avoid hurtful relationships. MAINTAIN IDEAL BODY WEIGHT The best way to do this is to do all the things above. Our bodies naturally find the right weight if we keep moving and feed ourselves the right food. If your BMI is greater than 25, we strongly recommend a referral to a weight management program. Please speak to us or your family physician about available programs. AVOID NICOTINE IN ALL FORMS This includes all tobacco products, whether chewed, smoked, vaped, or rubbed on the skin. Smoking cessation programs, which can make use of tobacco substitutes, medications to suppress cravings and behavior management, are available. Please contact your family physician about programs in your area. Referring Provider: HARRISON STOUT [[id number]] Allergies As of Date: 08/16/2017 Noted Allergy Reaction BACTRIM (SULFAMETHOXAZOLE) 08/13/2011 14 - Other: See Comments Comments: Cardiac issues, CIPRO IV only CIPRO I.V. (CIPROFLOXACIN) 06/28/2006 4 - Hives 12 - Shortness of Breath DIMETAPP (PSEUDOEPHEDRINE-DM) 12/04/2005 11 - Vomiting Comments: violently ill when overdosed on it as child ERYTHROMYCIN 11/29/2005 Comments: hives ok with zithromax KEFLEX (CEPHALEXIN) 11/29/2005 Comments: OK to give zosyn per MD 1--07 LATEX 11/29/2005 2 - Rash Comments: rash, breaks out everywhere, n/v , feels weak Can still eat food that is considered for latex allergies No allergic to latex foods per patient isaak 05/07/11 TETRACYCLINE 02/05/2006 Comments: hives Date Reviewed: 08/16/2017 Reviewed by: Yady Sutherland - Fully Assessed Reason for Visit: New Patient [172] Primary Visit Diagnosis:Tachycardia [R00.0] Other Visit Diagnosis:SVT (supraventricular tachycardia) ([facility]) [I47.1] Order(s):CBC [SQCBC] Order #: [id number] FUTURE BASIC METABOLIC PNL [SQBMP] Order #: [id number] FUTURE MAGNESIUM BLD [SQMG1] Order #: [id number] FUTURE EVENT MONITOR [0895917] Order #: [id number]: 1 ECHO [[id number]] Order #: [id number]: 1 FUTURE Prescriptions as of 08/16/2017 Sig: PHENTERMINE 37.5 MG CAPSULE Take 1 capsule by mouth once * METOPROLOL SUCCINATE ER 25 MG* Take 1 tablet by mouth once d* CLONAZEPAM 1 MG TABLET TAKE ONE TABLET BY MOUTH BRIAN* FLUTICASONE 50 MCG/ACTUATION * Use 2 Sprays in each nostril * OMEPRAZOLE 20 MG CAPSULE,JAG* Take 1 capsule by mouth twice* DIAPER,BRIEF,ADULT,DISPOSABLE 1 Each as needed. Dx: N36.0,* ASPIRIN 81 MG TABLET,DELAYED * Take 1 tablet by mouth once d* LISINOPRIL 10 MG TABLET Take 1 tablet by mouth once d* GABAPENTIN 100 MG CAPSULE 300 mg daily at bedtime ZOLPIDEM 10 MG TABLET Take 1 tablet by mouth at bed* GABAPENTIN 100 MG CAPSULE Take 1 capsule by mouth once * BLOOD SUGAR DIAGNOSTIC STRIPS TEST BLOOD SUGAR 6 TO 8 TIMES* LANCETS Use as instructed to test blo* BLOOD-GLUCOSE METER KIT As directed INSULIN GLARGINE (U-100) 100 * 30 u twice daily INSULIN ASPART U-100 100 UNI* 18 units before meals + 2 u p* PEN NEEDLE, DIABETIC 33 GAUGE* 1 Each as directed. Use with * MELOXICAM 15 MG TABLET Take 1 tablet by mouth once d* AMLODIPINE 5 MG TABLET TAKE TWO TABLETS BY MOUTH WILIAN* QUETIAPINE 100 MG TABLET Take 1 tablet by mouth twice * DULOXETINE 60 MG CAPSULE,JAG* Take 1 capsule by mouth daily* ETODOLAC 300 MG CAPSULE Take 1 capsule by mouth every* LANCETS REGULAR MISC 1 Each as directed. Use 6 x d* CHOLECALCIFEROL (VITAMIN D3) * Take 1 capsule by mouth once * MULTIVITAMIN WITH CALCIUM AND* Take 1 tablet by mouth twice * BLOOD SUGAR DIAGNOSTIC, DISC * 1 Each as directed. 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 Essential Hypertension, Benign [I10] INVALID FOR* More... Hyperpotassemia [E87.5] INVALID FOR*04/15/2017 Abdominal pain, left lower quadrant [R10.32] INVALID FOR*04/15/2017 Abdominal pain, right lower quadrant [R10.31] INVALID FOR*04/15/2017 Abdominal Pain, Generalized [R10.84] INVALID FOR* HTN (hypertension) [I10] 04/15/2017 More... GERD (Gastroesophageal Reflux Disease) [K21.9] More... Irritable Bowel Syndrome [K58.9] RSD lower limb [G90.529] 04/15/2017 Open wound of abdominal wall, anterior, complic* 04/15/2017 Depressive disorder, not elsewhere classified [* More... Morbid obesity (HCC) [E66.01] INVALID FOR*12/25/2016 Dietary surveillance and counseling [Z71.3] INVALID FOR*04/15/2017 Gastric bypass status for obesity [Z98.84] INVALID FOR*04/15/2017 More... Nausea AND vomiting [R11.2] INVALID FOR*04/15/2017 Other and unspecified postsurgical nonabsorptio*INVALID FOR*04/15/2017 Osteoporosis [M81.0] INVALID FOR*08/20/2013 On total parenteral nutrition (TPN) [Z78.9] INVALID FOR*04/15/2017 Malabsorption [K90.9] INVALID FOR* Fracture [T14.8XXA] INVALID FOR*04/15/2017 Hernia of abdominal wall [K43.9] INVALID FOR* H/O hyperglycemia [Z86.39] INVALID FOR*04/15/2017 Diarrhea [R19.7] INVALID FOR* Insomnia [G47.00] INVALID FOR* More... Diabetic neuropathy, painful (HCC) [E11.40] INVALID FOR* More... DM (diabetes mellitus) (HCC) [E11.9] INVALID FOR* More... Unspecified intestinal malabsorption [K90.9] INVALID FOR* More... Osteoporosis [M81.0] INVALID FOR* More... Vitamin D deficiency [E55.9] INVALID FOR* More... Post-operative state [Z98.890] INVALID FOR*04/15/2017 Obesity (BMI 30.0-34.9) [E66.9] INVALID FOR* More... Chronic pain in right shoulder [M25.511, G89.29]INVALID FOR* More... Impingement syndrome of right shoulder [M75.41] INVALID FOR* More... Migraines [G43.909] INVALID FOR* DDD (degenerative disc disease), lumbar [M51.36]INVALID FOR* Acute pain of right shoulder [M25.511] INVALID FOR* Other instructions from your clinician: LIFESTYLE CHANGE A healthy lifestyle is the most important component of your overall treatment plan. Please give serious thought to the following areas and commit to making travel rn or changes. EAT A WHOLE FOOD, PLANT BASED DIET The nutrition your body gets is more important than the medicine you take. What matters most is the overall way you eat. We encourage you to minimize the use of animal products (which include dairy and all meats except fatty fish) and use whole, unprocessed plant foods to provide your protein, vitamins and other nutrients. We have a lot of information to share with you on this topic. We also hold Shared Medical Appointments, where you can come visit with Dr. Stout in the company of other patients and spend over an hour talking about the challenges of changing the way you eat. This is not a diet. It is a way of life that you will keep with you. EXERCISE REGULARLY It is not important to spend hours in the gym, lifting weights and perspiring heavily. A total of 2-3 hours per week of aerobic (causing you to be moderately short of breath) exercise is sufficient to improve your health. Talk to us before you begin a new exercise program, if you have heart disease or experience shortness of breath or chest pain. REDUCE STRESS Chronic emotional and physical stress leads to disease. Ways of reducing stress include meditation, visualization, prayer, yoga and other forms of relaxation therapy. Consistency is the palomo. Find a technique that works for you and do it every day. CULTIVATE RELATIONSHIPS Loneliness and isolation have a major negative impact on health. Seek out others who can love, care for and nurture you. Avoid hurtful relationships. MAINTAIN IDEAL BODY WEIGHT The best way to do this is to do all the things above. Our bodies naturally find the right weight if we keep moving and feed ourselves the right food. If your BMI is greater than 25, we strongly recommend a referral to a weight management program. Please speak to us or your family physician about available programs. AVOID NICOTINE IN ALL FORMS This includes all tobacco products, whether chewed, smoked, vaped, or rubbed on the skin. Smoking cessation programs, which can make use of tobacco substitutes, medications to suppress cravings and behavior management, are available. Please contact your family physician about programs in your area. Medications Discontinued During This Encounter zolpidem (AMBIEN) 10 mg tab 30 t* 3 05/29/2017 08/16/2017 Class: Print RX Sig: TAKE ONE TABLET BY MOUTH AT BEDTIME NEEDED Disc: Reason for discontinue is not on file. Follow-up and Disposition History Recorded Encounter Status:Closed by HARRISON STOUT MD on 08/16/17 PROGRESS Observed: 08/02/2017 Status: COMPLETED Source: [place] 12:54 PM [facility] REPOSITORY HNO ID: [id number] Author: Ibrahima Sarkra Service: (none) Author Type: Nurse Practitioner Type: Progress Notes Filed: 08/02/2017 1:24 PM Note Text: CC: Adri Goyal is a 56 year old female who presents for weight loss medication follow up. HPI Currently taking Adipex. Starting July 27, 2017 Denies: Any new or worsening abdominal pain, nausea, vomiting, diarrhea, fevers, constipation, headache, change in urination, lightheadedness, weakness, numbness or tingling to arms or legs, edema, palpitations, sleep disturbances, impairment of concentration/attention, difficulty with memory, speech or language problems (particularly word-finding difficulties). Reports: initially feeling hyper but has since mellowed out. Reports x2 episodes of hypoglycemia with readings of 32 and 48. Patient has been in contact with her County Judge who is aware she has started Adipex. Patient has now started dosing her insulin after meals. Since adjusting insulin timing no further hypoglycemic events. DIET Serving of fruits:1-2 Servings of vegetables:1-2 Servings of protein:3-5 Fluid intake:Coffee/tea: 1-2 glasses per day she is struggling with cutting out coffee Water: 8 glasses per day Do you Skip meals:YES, combination of breakfast and lunch depending on what time she gets up and dinner at 5pm Which meals do you tend to skip? Breakfast Food Behaviors: Meals are eaten at home Eating away from home:NO Nutrition consult placed Yes Exercise routine: YES Frequency: 6 times per week Weight/BMI Last 1 Encounter Wt Readings: Date: Wt: 08/02/17 99.3kg (219lb) BMI 31.42 kg/(m2) Last visit Wt: 102.5 kg (226 lb) BMI: 32.43 kg/(m2) Weight change since last visit: How much: 7lbs, How lon days ROS as above, otherwise non-contributory. Reviewed PMHx, PSHx, social Hx, medications and allergies. PHYSICAL EXAM There were no vitals taken for this visit. General Appearance: well appearing, in no acute distress, alert Pysch: mood and affect broad and appropriate Skin: Skin color, texture, turgor normal for age; Head: normocephalic, atraumatic Lungs: Lungs clear to auscultation. No wheezing, rhonchi, rales Heart: RRR without murmur, gallop, or rubs. No ectopy ASSESSMENT/PLAN: 1. Weight loss counseling, encounter for - ICD9: V65.3, ICD10: Z71.3 - One week follow up on Adipex. Patient tolerating well with +weight loss. Patient started new antihypertensive medication, then started Adipex 2 days later- has been taking full dose since initiating treatment - CONSULT TO NUTRITION THERAPY both for weight management and diabetes management. Patient only eating ~2 meals per day, which do not appear to be well balanced - Healthy Snack alternatives have been discussed and will attempt more fruits and vegetables. - encouraged 3 to 5 small meals a day - Continueexercise or meaningful activity for 20 minutes at lest 3 times a day - reviewed SE, medication expectations, required weight loss of 5%, monthly monitoring and medication duration of use (3 months on 6 months off) - Follow up in 1 month Prescription instructions reviewed with patient as applicable. Potential red flag symptoms discussed with the patient. Reviewed appropriate action plan to take if red flag symptoms occur. Patient agreeable to treatment plan. Ibrahima Sarkar CNP ALBUMIN/CREAT RATIO Collected: 07/25/2017 Status: F Source: [place] 11:23 AM [facility] REPOSITORY TYPE CODE TESTS RESULT OUT OF REFERENCE UNITS RANGE LAB UCRR 20-300 mg/dL 127.7 Creatinine,Ur ine,Ran LAB UALBR 0.0-23.0 mg/L <12.0 Albumin Urine Random LAB UALBCR 0-30 mg/g Not Albumin/Creat calculated Ratio Performed By: #### UACR #### [facility] [address] [address] LIPID PANEL, BASIC Collected: 07/25/2017 Status: F Source: [place] 11:04 [facility] REPOSITORY TYPE CODE TESTS RESULT OUT OF REFERENCE UNITS RANGE LAB CHOL <200 mg/dL Cholesterol 177 Result Comment: <200 mg/dL, Desirable 200-239 mg/dL, Borderline high >239 mg/dL, High LAB TRIGLY <150 mg/dL Triglyceride High 310 Result Comment: <150 mg/dL, Normal 150-199 mg/dL, Borderline high 200-499 mg/dL, High >499 mg/dL, Very high LAB HDL >39 mg/dL HDL-Cholesterol 49 Result Comment: 40-59 mg/dL, Acceptable >59 mg/dL, High: Negative risk factor for coronary heart disease <40 mg/dL, Low: Positive risk factor for coronary heart disease LAB LDL <100 mg/dL LDL-Cholesterol 66 Result Comment: <100 mg/dL, Optimal 100-129 mg/dL, Near optimal/above optimal 130-159 mg/dL, Borderline high 160-189 mg/dL, High >189 mg/dL, Very high Secondary prevention optimal LDL Cholesterol levels are recommended to be < 70 mg/dL LAB NONHDL <130 mg/dL Non HDL Cholesterol 128 Result Comment: <130 mg/dL, Optimal 130-159 mg/dL, Near optimal/above optimal 160-189 mg/dL, Borderline high 190-219 mg/dL, High >219 mg/dL, Very high Secondary prevention optimal non HDL Cholesterol levels are recommended to be < 100 mg/dL LAB FT hrs Fasting Time 16 LAB VLDL <30 mg/dL High VLDL Cholesterol 62 LAB TCHDL <5.10 TC:HDL Ratio 3.61 LAB LDLHDL <2.54 LDL:HDL Ratio 1.35 Result Comment: Reference: 1. National Cholesterol Education Program ATP III Guideline At-A-Glance Quick Desk Reference: National Heart, Lung, and Blood [place]. National Institutes of Health. 2001: NIH Publication No. 01-3305. 2. An International Atherosclerosis Society position paper: global recommendations for the management of dyslipidemia: executive summary, Atherosclerosis. 2014: 232(2):410-413. Performed By: #### LIPB #### [facility] [address] [place] [address] FREE T4 Collected: 07/25/2017 Status: F Source: [place] 11:04 AM [facility] REPOSITORY TYPE CODE TESTS RESULT OUT OF RANGE REFERENCE UNITS LAB FT4 0.9-1.7 ng/dL Free T4 1.0 Performed By: #### FT4, T3, TSH #### [facility] [address] [address] T3 Collected: 07/25/2017 Status: F Source: [facility] 11:04 AM [facility] REPOSITORY TYPE CODE TESTS RESULT OUT OF RANGE REFERENCE UNITS LAB T3 79-165 ng/dL T3 101 Performed By: #### FT4, T3, TSH #### [facility] [address] [address] TSH Collected: 07/25/2017 Status: F Source: [place] 11:04 AM [facility] REPOSITORY TYPE CODE TESTS RESULT OUT OF RANGE REFERENCE UNITS LAB TSH 0.400-5.500 uU/mL TSH 2.570 Performed By: #### FT4, T3, TSH #### [facility] [address] [place], [place] [address] PROGRESS Observed: 07/25/2017 Status: COMPLETED Source: [place] 10:15 AM [facility] REPOSITORY HNO ID: [id number] Author: Leon Jimenez Service: (none) Author Type: Physician Type: Progress Notes Filed: 07/25/2017 11:59 AM Note Text: Reason for Visit Patient presents with: Established Patient: 1 month follow up-weight Adri Goyal is a 56 year old female who presents here today for Above Complaints.. Health Maintenance HPV EVERY 5 YEARS DILATED RETINAL EXAM HPI Her blood pressure is good today she would like to start on adipex. Did not fill her previous one. Gained weight since the last visit . Her heart rate is Usually in the range of 90, tsh is normal will recheck it. Does not take any otc herbal supplements etc. Has had echo and ekg in the past , her ekgs all the way up to 2010 and beyond showed tachy cardia. She does not feel any palpitations Her fasting sugars are in the range of 140, not had recent low sugars. She has failed to make her endo apt but promised she will call her endo today and update them on numbers. No problem-specific Assessment AND Plan notes found for this encounter. PAST MEDICAL HISTORY Diagnosis Date - Abdominal pain, generalized CHRONIC PAIN MANAGEMENT - Bacterial overgrowth syndrome - Bowel disease - Depressive disorder, not elsewhere classified on cymbalta - Diabetes mellitus (HCC) 1980s on insulin since 1982 - Fracture - GERD (gastroesophageal reflux disease) resolved since 2004 - HTN (hypertension) resolved since 2004 - Incisional hernia without mention of obstruction or gangrene - Irritable bowel syndrome - Necrotizing fasciitis (HCC) - Obesity, unspecified 05-23-10 STATED BMI 35.91 Ht: 70 Wt: 250 lbs - Open wound of abdominal wall, anterior, complicated 1 - PMH - PAST MEDICAL HISTORY OF irritable bowel syndrome, necrotizing fasciitis, hypertension, diabetes, GERD, gastritis, - PMH - PAST MEDICAL HISTORY OF 09/2009 left foot break - RSD lower limb seen by pain management PAST SURGICAL HISTORY Procedure Laterality Date - ARTHROS SHLDR DX W/WO SYNV BX Right 05/03/2017 Right shoulder arthroscopy, glenoid chondroplasty - FEEDING TUBE-SPECIFY J-tube - GASTRIC BYPASS, LION-EN-Y 04/27/11 - PAST SURGICAL HISTORY OF colostomy, partial colectomy,OSMAR/BSO, right hand tendon rplaced, fatty tumor excision back and thigh,ulnar nreve surgery bilaterally, tonsillectomy - PAST SURGICAL HISTORY OF 2005 repair of fistulas - PAST SURGICAL HISTORY OF 2005 translupe colostomy - PAST SURGICAL HISTORY OF 2004 debredement due to necratizing fascitis - PAST SURGICAL HISTORY OF 2004 hysterectomy - PAST SURGICAL HISTORY OF STATES > 113 ABDOMINAL SURGERIES - PAST SURGICAL HISTORY OF resversal of colostomy - PAST SURGICAL HISTORY OF 10/2015 hernia repair/abdominal muscle repair - REPAIR COMPL ROTATOR CUFF AVULSN,CHR Right 05/03/2017 Glenoid chondroplasty, labtral debridement, SAD FAMILY HISTORY Problem Relation Age of Onset - Bipolar [OTHER] Mother - Diabetes Father Type 2 - Heart Father hypertension - Colon Cancer Paternal Grandfather dx'd age 61? - Hypertension Paternal Grandfather - Diabetes Paternal Grandfather Type 2 - Breast Cancer Paternal Aunt Social History Substance Use Topics - Smoking status: Never Smoker - Smokeless tobacco: Never Used - Alcohol use No Past medical history, appointments, medications, allergies reviewed. Pertinent Lab/Diagnostic Studies are reviewed and discussed today Current Outpatient Prescriptions: - clonazePAM (KLONOPIN) 1 mg tablet - fluticasone (FLONASE) 50 mcg/actuation nasal spray - omeprazole (PRILOSEC) 20 mg capsule - Diaper,Brief, Adult,Disposable (PREVAIL ADJUST UNDERWEAR JETT) misc - aspirin, enteric coated (ASPIRIN, ENTERIC COATED) 81 mg EC tablet - lisinopril (ZESTRIL, PRINIVIL) 10 mg tablet - Phentermine HCl (ADIPEX-P) 37.5 mg capsule - gabapentin (NEURONTIN) 100 mg capsule - zolpidem (AMBIEN) 10 mg tab - zolpidem (AMBIEN) 10 mg tab - estradiol (CLIMARA) 0.025 mg/24 hr - gabapentin (NEURONTIN) 100 mg capsule - blood sugar diagnostic (ONETOUCH ULTRA TEST) test strip - Lancets lancets - Blood-Glucose Meter (ONETOUCH ULTRA2) monitoring kit - insulin glargine (LANTUS SOLOSTAR) 100 unit/mL (3 mL) inpn - insulin aspart (NOVOLOG) 100 unit/mL inpn - pen needle, diabetic 33 gauge x 5/32 ndle - meloxicam (MOBIC) 15 mg tablet - amLODIPine (NORVASC) 5 mg tablet - QUEtiapine (SEROQUEL) 100 mg tablet - DULoxetine (CYMBALTA) 60 mg capsule - etodolac (LODINE) 300 mg capsule - LANCETS REGULAR MISC - cholecalciferol, Vitamin D3, (VITAMIN D3) 50,000 unit cap capsule - Multivits,CalciumAND Minerals-FA 267 mcg tab - Blood Sugar Diagnostic, Disc strp Review of Systems CONSTITUTIONAL: No fevers, chills night sweats, unintended weight loss CARDIOVASCULAR: No chest pain, dyspnea, palpitations, orthopnea, PND, ankle edema. PULM: No dyspnea, unexplained cough. GI: No dysphagia/odynophagia, problematic reflux, constipation, diarrhea, changes in stool habits, hematochezia, melena. : No new urinary complaints, including dysuria, gross hematuria or pyuria. NEURO: No new balance problems, peripheral weakness/paresthesias or numbness of concern. Physical Exam BP 116/70 (BP Site: Left Arm, BP Position: Sitting, BP Cuff Size: Large Adult) Pulse 98 Resp 12 Ht 177.8 cm (5' 10) Wt 102.5 kg (226 lb) SpO2 98% BMI 32.43 kg/m2 General appearance: Well appearing, alert, in no acute distress, well nourished. Skin: Skin color, texture, turgor normal, no suspicious rashes or lesions Head: Normocephalic, no masses, lesions, tenderness or abnormalities Eyes: Anicteric sclera. Pupils are equally round and reactive to light. Extraocular movements are intact. Lungs: Lungs clear to auscultation. No wheezing, rhonchi, rales Heart: RRR without murmur, gallop, or rubs. ASSESSMENT/PLAN: 1. Essential hypertension, benign - ICD9: 401.1, ICD10: I10 (primary diagnosis) - good control - Recommended regular aerobic exercise. - Recommend home blood pressure monitoring, to bring results in on next visit - Goal of BP <130/80 - PHENTERMINE 37.5 MG CAPSULE 2. Class 1 obesity without serious comorbidity with body mass index (BMI) of 31.0 to 31.9 in adult, unspecified obesity type - ICD9: 278.00, V85.31, ICD10: E66.9, Z68.31 Negative for all the following :Hypersensitivity or idiosyncrasy to phentermine or other sympathomimetic amines or any component of the formulation; history of cardiovascular disease (arrhythmias, congestive heart failure, coronary artery disease, stroke, uncontrolled hypertension); hyperthyroidism, glaucoma, agitated states, history of drug abuse; use during or within 14 days following MAO inhibitor therapy; , breast-feeding Discussed in detail that phentermine could make her heart beat faster and if she feels palpitations at any point she should stop the medication, we will review her in a week. She really wants to try the medication. Start the pill at half dose and if hr is less 100 then go up on the medication In 1 week rto - PHENTERMINE 37.5 MG CAPSULE To be watchful about the sugars 3. Obesity (BMI 30.0-34.9) - ICD9: 278.00, ICD10: E66.9 Negative for all the following :Hypersensitivity or idiosyncrasy to phentermine or other sympathomimetic amines or any component of the formulation; history of cardiovascular disease (arrhythmias, congestive heart failure, coronary artery disease, stroke, uncontrolled hypertension); hyperthyroidism, glaucoma, agitated states, history of drug abuse; use during or within 14 days following MAO inhibitor therapy; , breast-feeding - PHENTERMINE 37.5 MG CAPSULE 4. Tachycardia - ICD9: 785.0, ICD10: R00.0 Starting her on small dose of metoprolol - CONSULT TO CARDIOLOGY - TSH BLD - T3 BLD - T4 FREE/FREE THYROX LEON JIMENEZ MD PROGRESS Observed: 06/27/2017 Status: COMPLETED Source: [place] 2:33 PM [facility] REPOSITORY HNO ID: [id number] Author: Sarai Carrera) Jack Service: (none) Author Type: Physical Therapist Type: Progress Notes Filed: 06/27/2017 2:35 PM Note Text: Episode Visit Count: 2 Therapist That Will Oversee The Plan Of Care: Sarai Santiago Plan of Care Certification Date: 06/13/17 [facility] PHYSICAL THERAPY TREATMENT NOTE ASSESSMENT: Adri Goyal demonstrated improvements in ROM and form with exs. Progressed with ac, wand extension/ adduction and scapular retraction The patient will continue to benefit from continued skilled physical therapy for progression of exs PLAN FOR NEXT VISIT: Will add isometric RTC, and cross body adduction SUBJECTIVE: Pt reports that she is pretty sore with the exs but notes that she is doing them Pain Score: 2/10 Pain Location: Shoulder - Right Description: Aching Frequency: Continuous Post Treatment Pain Score: 3/10 Post Treatment Pain Description: Aching OBJECTIVE MEASURES WITH LEVEL OF FUNCTION: UE AROM R Shoulder Flex: 120 Degrees ( supine assisted) UE PROM R Shoulder Flex: 120 Degrees R Shoulder External Rotation: 60 Degrees TREATMENT: Therapeutic Exercise: 1: pendulums CW and CCW 1x10 2: supine self assisted flexion 1x10 3: supine wand assisted ER 1x10 4: active scapular retraction 1x10 5: passive ER in supine 1x10 6: shoulder ac for elevation 1x10 7: wand extension 1x10 8: wand assisted extension / adduction 1x10 Skilled Intervention: Patient was educated in proper exercise technique and purpose for exercises. Skilled judgment was provided in selection of appropriate interventions. Provided written instruction for home exercise program to facilitate proper performance and compliance. Correct performance of therapeutic exercises was facilitated with verbal and visual cuing. Billing: [facility]: Therapeutic Exercise (68157): 1:1 time: 30 minutes (2 units: 23-37 mins) Total time: 30 minutes Sarai Santiago PT CNTHERAPY Observed: 06/27/2017 Status: COMPLETED Source: [place] 2:00 PM [facility] REPOSITORY OT/PT/Speech Visit (PTWS) ADRI GOYAL ([id number]) 1960 F TPN Date Time Provider Department 06/27/17 2:00 PM SARAI SANTIAGO (PT) PTWS Date Time Provider Department Center 06/27/2017 2:00 PM [id number], LISA (PT) PTWS [facility] Reason for Visit: Physical Therapy [503] PT Discharge [752] Reason For Visit History Recorded Primary Visit Diagnosis:Acute pain of right shoulder [M25.511] Allergies As of Date: 06/27/2017 Noted Allergy Reaction BACTRIM (SULFAMETHOXAZOLE) 08/13/2011 14 - Other: See Comments Comments: Cardiac issues, CIPRO IV only CIPRO I.V. (CIPROFLOXACIN) 06/28/2006 4 - Hives 12 - Shortness of Breath DIMETAPP (PSEUDOEPHEDRINE-DM) 12/04/2005 11 - Vomiting Comments: violently ill when overdosed on it as child ERYTHROMYCIN 11/29/2005 Comments: hives ok with zithromax KEFLEX (CEPHALEXIN) 11/29/2005 Comments: OK to give zosyn per MD 1--07 LATEX 11/29/2005 2 - Rash Comments: rash, breaks out everywhere, n/v , feels weak Can still eat food that is considered for latex allergies No allergic to latex foods per patient isaak 05/07/11 TETRACYCLINE 02/05/2006 Comments: hives Date Reviewed: 06/26/2017 Reviewed by: Karey Colunga LPN - Fully Assessed Prescriptions as of 06/27/2017 Sig: DIAPER,BRIEF,ADULT,DISPOSABLE 1 Each as needed. Dx: N36.0,* ASPIRIN 81 MG TABLET,DELAYED * Take 1 tablet by mouth once d* LISINOPRIL 10 MG TABLET Take 1 tablet by mouth once d* X PHENTERMINE 37.5 MG CAPSULE Take 1 capsule by mouth once * GABAPENTIN 100 MG CAPSULE 300 mg daily at bedtime ZOLPIDEM 10 MG TABLET Take 1 tablet by mouth at bed* X ZOLPIDEM 10 MG TABLET TAKE ONE TABLET BY MOUTH AT B* ESTRADIOL 0.025 MG/24 HR WEEK* Apply 1 Patch as directed onc* GABAPENTIN 100 MG CAPSULE Take 1 capsule by mouth once * BLOOD SUGAR DIAGNOSTIC STRIPS TEST BLOOD SUGAR 6 TO 8 TIMES* LANCETS Use as instructed to test blo* BLOOD-GLUCOSE METER KIT As directed INSULIN GLARGINE (U-100) 100 * 30 u twice daily INSULIN ASPART U-100 100 UNI* 18 units before meals + 2 u p* PEN NEEDLE, DIABETIC 33 GAUGE* 1 Each as directed. Use with * MELOXICAM 15 MG TABLET Take 1 tablet by mouth once d* AMLODIPINE 5 MG TABLET TAKE TWO TABLETS BY MOUTH WILIAN* X OMEPRAZOLE 20 MG CAPSULE,JAG* TAKE ONE CAPSULE BY MOUTH TWI* QUETIAPINE 100 MG TABLET Take 1 tablet by mouth twice * X CLONAZEPAM 1 MG TABLET Take 1 tablet by mouth daily * DULOXETINE 60 MG CAPSULE,JAG* Take 1 capsule by mouth daily* X FLUTICASONE 50 MCG/ACTUATION * Use 2 Sprays in each nostril * ETODOLAC 300 MG CAPSULE Take 1 capsule by mouth every* LANCETS REGULAR MISC 1 Each as directed. Use 6 x d* CHOLECALCIFEROL (VITAMIN D3) * Take 1 capsule by mouth once * MULTIVITAMIN WITH CALCIUM AND* Take 1 tablet by mouth twice * BLOOD SUGAR DIAGNOSTIC, DISC * 1 Each as directed. CHECK BLO* Progress Notes: Sarai Santiago, PT 06/27/2017 2:35 PM Signed Episode Visit Count: 2 Therapist That Will Oversee The Plan Of Care: Sarai Santiago Plan of Care Certification Date: 06/13/17 REHABIL[facility]ATION AND SPORTS THERAPY PHYSICAL THERAPY TREATMENT NOTE ASSESSMENT: Adri Goyal demonstrated improvements in ROM and form with exs. Progressed with ac, wand extension/ adduction and scapular retraction The patient will continue to benefit from continued skilled physical therapy for progression of exs PLAN FOR NEXT VISIT: Will add isometric RTC, and cross body adduction SUBJECTIVE: Pt reports that she is pretty sore with the exs but notes that she is doing them Pain Score: 2/10 Pain Location: Shoulder - Right Description: Aching Frequency: Continuous Post Treatment Pain Score: 3/10 Post Treatment Pain Description: Aching OBJECTIVE MEASURES WITH LEVEL OF FUNCTION: UE AROM R Shoulder Flex: 120 Degrees ( supine assisted) UE PROM R Shoulder Flex: 120 Degrees R Shoulder External Rotation: 60 Degrees TREATMENT: Therapeutic Exercise: 1: pendulums CW and CCW 1x10 2: supine self assisted flexion 1x10 3: supine wand assisted ER 1x10 4: active scapular retraction 1x10 5: passive ER in supine 1x10 6: shoulder ac for elevation 1x10 7: wand extension 1x10 8: wand assisted extension / adduction 1x10 Skilled Intervention: Patient was educated in proper exercise technique and purpose for exercises. Skilled judgment was provided in selection of appropriate interventions. Provided written instruction for home exercise program to facilitate proper performance and compliance. Correct performance of therapeutic exercises was facilitated with verbal and visual cuing. Billing: [facility]: Therapeutic Exercise ([id number]): 1:1 time: 30 minutes (2 units: 23-37 mins) Total time: 30 minutes Sarai Santiago PT Sarai Santiago PT 08/19/2017 6:50 PM Signed [facility] REHABILITATION AND SPORTS THERAPY PHYSICAL THERAPY DISCONTINUANCE OF CARE Plan of Care Period: First Visit 06/13/2018 Last Visit Date:06/27/2017 Therapy Program: Patient did not return for follow up care as planned. Please refer to last visit note for interventions provided for this episode of care. Assessment: Unable to formally assess goal achievement due to non-compliance with therapy plan of care. Reason for Discontinuation of Care: Patient has not returned to therapy or scheduled additional follow-up appointments. Sarai Santiago PT ALLERGIES ALLERGIES DATE TYPE / CODE NAME / CODE REACTION SEVERITY SOURCE 10/11/19 Drug phenylpropanolamine Hives Unknown [place] 16 Allergy/008018147 HCl/[id number](RXNORM) [facility] (SNOMED CT) Hospital Repository 10/11/19 Drug amoxicillin Hives Unknown [place] 16 Allergy/664612469 trihydrate/B857929098( [facility] (OMED CT) RXNORM) Hospital Repository 10/11/19 Drug potassium Hives Unknown [place] 16 Allergy/284892662 clavulanate/[id number] [facility] (OMED CT) (RXNORM) Hospital Repository 10/11/19 Drug brompheniramine Hives Unknown [place] 16 Allergy/526861670 maleate/Z558643398(RXN [facility] (SNOMED CT) OR) Hospital Repository 10/11/19 Drug ciprofloxacin Other Unknown [place] 16 Allergy/426865619 HCl/A064850257(RXNORM) [facility] (SNOMED CT) Hospital Repository 10/11/19 Drug cephalexin Hives Unknown [place] 16 Allergy/925696331 monohydrate/K072120768 [facility] (SNOMED CT) (RXNORM) Hospital Repository 10/11/19 Drug Tetracyclines/K5439803 Hives Unknown [place] 16 Allergy/183706946 78(RXNORM) [facility] (SNOMED CT) Hospital Repository 10/11/19 Drug sulfamethoxazole/F0060 Other Unknown [place] 16 Allergy/769167633 07752(RXNORM) [facility] (SNOMED CT) Hospital Repository 10/11/19 Drug trimethoprim/I35014470 Other Unknown [place] 16 Allergy/471071756 3(RXNORM) [facility] (SNOMED CT) Hospital Repository 10/11/19 Drug ciprofloxacin/G2639383 Other Unknown [place] [facility] Allergy/326513995 82(RXNORM) [facility] (SNOMED CT) Hospital Repository 10/11/19 Drug latex/W546202899(RXNOR Anaphylaxis Unknown [place] [facility] Allergy/222230187 M) [facility] (SNOMED CT) Hospital Repository 08/13/19 DRUG SULFAMETHOXAZOLE OTHER: SEE [facility] [place] [facility]/184686875 Clinic Other (SNOMED CT) [place] Repository 06/28/19 DRUG CIPROFLOXACIN HIVES [place] [facility]I/881134912 Clinic Other (SNOMED CT) [place] Repository 02/06/20 DRUG TETRACYCLINE [place] [facility]I/674843040 Clinic Other (SNOMED CT) [place] Repository 12/05/19 DRUG/830515628(SN PSEUDOEPHEDRINE-DM Vomiting [place] [address]) Clinic Other [place] Repository 11/30/19 DRUG/327758193(SN ERYTHROMYCIN [place] [address]) Clinic Other [place] Repository 11/30/19 DRUG CEPHALEXIN [place] [facility] INGREDI/125501964 Clinic Other (SNOMED CT) [place] Repository 11/30/19 DRUG LATEX RASH [place] 06 INGREDI/969290825 Clinic Other (SNOMED CT) [place] Repository Drug PENICILLINS Moderate [place] [place] Allergy/131940463 (CLASS)/67824395(RXNOR ([facility] ([facility]) M) Modifier) [facility] (Qualifier Repository Value) Drug CEPHALEXIN/20557575(RX Moderate [facility] [place] Allergy/203962872 NORM) ([facility] (SNOMED [facility]) Modifier) Hospital (Qualifier Repository Value) Drug TETRACYCLINE/37283519( TETRACYCLINE, Moderate [facility] [place] Allergy/387801468 RXNORM) DIMETAPP, ([facility] (SNOMED CT) LATEX, CIPRO, Modifier) Hospital (Qualifier Repository Value) Drug ERYTHROMYCIN/21337809( Moderate [facility] [place] Allergy/363375618 RXNORM) ([facility] (SNOMED [facility]) Modifier) Hospital (Qualifier Repository Value) Drug PSEUDOEPHEDRINE/501225 Moderate [facility] [place] Allergy/552658467 37(RXNORM) ([facility] (SNOMED [facility]) Modifier) Hospital (Qualifier Repository Value) Drug CIPROFLOXACIN/26763288 Moderate [facility] [place] Allergy/303258556 (RXNORM) ([facility] (SNOMED CT) Modifier) Hospital (Qualifier Repository Value) Environmental LATEX Moderate [facility] [place] Allergy/312539112 ([facility] ([facility] Modifier) Hospital (Qualifier Repository Value) Drug AUGMENTIN/38463746(RXN Moderate [facility] [place] Allergy/473689761 ORM) ([facility] (SNOMED CT) Modifier) Hospital (Qualifier Repository Value) Miscellaneous UNKNOWN GFC CODE - Moderate [facility] [place] Allergy/328885955 84386150 - DIMET - ([facility] (SNOMED [facility]) [employer]et[employer] Modifier) Hospital (Qualifier Repository Value) NG/408370436(SNOM SULFAMETHOXAZOLE [facility]) [facility] Repository NG/732562580(SNOM CIPROFLOXACIN [facility]) Health System Repository NG/396541988(SNOM PSEUDOEPHEDRINE-DM [facility]) [facility] System Repository NG/337812441(SNOM ERYTHROMYCIN [facility]) [facility] System Repository NG/453120126(SNOM CEPHALEXIN [facility]) [facility] System Repository NG/788758068(SNOM LATEX [facility]) [facility] System Repository NG/136023311(SNOM TETRACYCLINE [facility]) Health System Repository ENCOUNTERS ENCOUNTERS ADMIT/DISCHARGE ACCOUNT NUMBER ADMITTING ENCOUNTER LOCATION SOURCE CLASS 07/11/2018/07/11/19 [id number] Ambulatory [address] Repository 07/04/2018 [id number] Ambulatory [facility] ding:[facility]SPEC Repository 07/04/2018/07/04/19 [id number] [facility]ulatory [facility] [place] Repository 07/02/2018/07/02/19 [id number] [facility]ulatory [facility] [place] Repository 06/26/2018/06/27/19 [id number] Ambulatory [facility] [place] Repository 06/20/2018/06/23/19 [id number] Ambulatory [facility] [place] Repository 06/16/2018/06/16/20 [id number] Ambulatory [facility] [place] Repository 06/13/2018/06/16/20 [id number] Ambulatory [facility] [place] Repository 06/09/2018 [id number] Ambulatory [facility] ding:[facility]SPEC Repository 06/09/2018/06/09/20 [id number] Ambulatory [facility] [place] Repository 06/06/2018/06/06/20 [id number] Emergency [facility] [place] Repository 06/03/2018/06/04/20 [id number] Ambulatory [facility] [place] Repository 06/02/2018/06/03/20 [id number] Ambulatory [facility] [place] Repository 05/27/2018/05/27/20 [id number] Ambulatory [facility] [place] Repository 05/21/2018/05/31/20 [id number] DALIA JONES Inpatient [facility] [place] Repository 05/01/2018/05/01/20 [id number] Ambulatory [facility] [place] Repository 04/29/2018/04/29/20 [id number] Ambulatory [facility] [place] Repository 04/29/2018/04/29/20 [id number] Ambulatory [facility] [place] Repository 04/29/2018/04/29/20 [id number] Ambulatory [facility] [place] Repository 04/29/2018/04/29/20 [id number] Ambulatory [facility] [place] Repository 04/29/2018/04/29/20 [id number] Ambulatory [facility] [place] Repository 04/29/2018/04/29/20 [id number] Ambulatory [facility] [place] Repository 04/09/2018/04/10/20 [id number] Ambulatory [facility] [place] Repository 04/09/2018/04/09/20 [id number] Ambulatory [facility] [place] Repository 03/24/2018/03/24/20 [id number] [facility] [place] Repository 03/13/2018/03/19/20 [id number] [facility] [place] Repository 01/24/2018 [id number] Ambulatory [facility] ding:CT Repository 01/21/2018/01/22/20 [id number] [facility] [place] Repository 01/15/2018/01/16/20 [id number] Ambulatory [facility] Main [place] Repository 01/14/2018/01/15/20 [id number] Ambulatory [facility] Main [place] Repository 01/14/2018 [id number] Ambulatory [facility] Main [place] Repository 01/14/2018/01/16/20 [id number] Ambulatory [facility] Main [place] Repository 01/07/2018/01/08/20 [id number] Ambulatory [facility] Main [place] Repository 01/07/2018/01/10/20 [id number] Ambulatory [address] Main [place] Repository 11/19/2017/11/20/19 [id number] DALIA ORTEGA [facility] [place] [address] Room: ERBed: [facility] Repository 11/18/2017 [id number] Ambulatory [facility] MEDICAL Repository CENTERBuildi ng:CAGWS 11/08/2017/11/13/19 [id number] Ambulatory [facility] Main [place] Repository 10/18/2017/10/23/19 [id number] Ambulatory [address] Main [place] Repository 10/16/2017/10/17/19 [id number] Ambulatory [facility] Main [place] Repository 10/15/2017/10/16/19 [id number] Ambulatory [facility] Main [place] Repository 09/19/2017/09/20/19 [id number] Ambulatory [address] Main [place] Repository 09/03/2017/09/04/19 [id number] Ambulatory [facility] Main [place] Repository 08/30/2017/08/31/19 [id number] Ambulatory [address] Main [place] Repository 08/19/2017/08/21/19 [id number] Ambulatory [address] Main [place] Repository 08/16/2017/08/17/19 [id number] Ambulatory [address] Repository 08/16/2017/08/17/19 [id number] Ambulatory [address] Repository 08/16/2017/08/17/19 [id number] Ambulatory [address] MEDICAL Repository CENTERBuildi ng:CAGWS 08/16/2017/08/17/19 [id number] Ambulatory [address] Repository 08/16/2017/08/17/19 [id number] Ambulatory [address] MEDICAL Repository CENTERBuildi ng:CAGWS 08/02/2017/08/05/19 [id number] Ambulatory [address] Repository 07/25/2017/07/25/19 [id number] Ambulatory [address] Repository 07/25/2017/07/25/19 [id number] Ambulatory [address] Repository 06/27/2017/06/30/19 [id number] Ambulatory [address] Repository PAYERS PAYERS ENCOUNTER GUARANTOR PAYER SUBSCRIBER SOURCE 07/04/2018 ADRI D Primary ADRI D [place] [id number] [facility] BPolicy Number: [id number] Health Care CenterF33[place] [id number] Repository [place], [place] [address]Npy: Date:2018-07-04 () 07/04/2018 Secondary ADRI D [place] Insurance:[facility]ICAIDPolCar[facility]ing[facility] HospitalB: [facility] cy Number: [id number] Hospital [id number] Repository Date:2018-07-04 07/04/2018 Tertiary NOT GIVENUNK [place] Insurance:SELF PAY [facility] Number: Effective Repository Date:2018-07-04 06/09/2018 ADRI D Primary ADRI D [place] [id number] Insurance[facility] BPolicy Number: [id number] Hospital [id number] Repository [place], [place] [address]Bun: Date:2018-06-09 () 06/09/2018 Secondary ADRI D [place] Insurance:MEDICAIDPoli WINKLERDOB: Community cy Number: [id number] Hospital [id number] Repository Date:2018-06-09 06/09/2018 Tertiary NOT GIVENUNK [place] Insurance:SELF PAY [facility] Number: Effective Repository Date:2018-06-09 01/24/2018 Adri D Primary Adri D [place] [id number] Insurance:MEDICARE WinklerDOB: [facility] PART A BPolicy Number: [id number] Hospital [id number] Repository , [place] [address]Fwg: Date:2018-01-14 () 01/24/2018 Secondary Adri D [place] Insurance:MEDICAIDPoli WinklerDOB: [facility] cy Number: [id number] Hospital [id number] Repository Date:2018-01-14 01/24/2018 Tertiary NOT GIVENUNK [place] Insurance:SELF PAY [facility] Number: Effective Repository Date:2018-01-14 11/19/2017 ADRI D Primary Insurance:500 ADRI D [place]c [place] WINKLERDOB: MEDICARE WINKLERDOB: [facility] [id number]03-18[facility] [address] Number: BOX Repository [facility] [id number] [place], Date:Plan Name: [id number] [place] [id number]: () 11/19/2017 Secondary ADRI D Jc [place] Insurance:100 MEDICAID WINKLERDOB: [facility] [id number] Hospital Number: BOX Repository [id number] [facility] [place] Date: [address] 11/19/2017 Tertiary ADRI D Jc [place] Insurance:MEDICARE WINKLERDOB: [address] Number: BOX Repository [id number] [place] Date:Plan Name: [id number] 11/18/2017 ADRI D Primary ADRI D [facility] WINKLERDOB: Insurance:MEDICARE [facility] [address]: [facility] AND BPolicy Number: [id number] Repository [address] [id number], Date: [place] [address]Tcm: () 11/18/2017 Secondary ADRI D [facility] Insurance:[facility]: [facility] MEDICAIDPolicy Number: [id number] Repository [id number] Date: 08/16/2017 ADRI D Primary ADRI D [facility] WINERDOB: Insurance:[facility]ICARE [facility]: [facility] AND BPolicy Number: [id number] Repository [address] [id number], Date: [place] [address]Iwy: () 08/16/2017 Secondary ADRI D [facility] Insurance:[facility]: [facility] MEDICAIDPolicy Number: [id number] Repository [id number] Date: 08/16/2017 ADRI D Primary ADRI D [facility] WINERDOB: Insurance:[facility]IC[facility]: [facility] AND BPolicy Number: [id number] Repository [address] [id number], Date: [place] [address]Rgy: () 08/16/2017 Secondary ADRI D [facility] Insurance:[facility]: [facility] MEDICAIDPolicy Number: [id number] Repository [id number] Date:
== END ==
PROVIDERS: PCP Internal Medicine; Visit Provider Internal Medicine
DX: I26.99 Other pulmonary embolism without acute cor pulmonale (principal)
CPT/HCPCS: 85610

== ENCOUNTER → 2018-07-25 13:56 | Outpatient (CLI) | payer MEDICARE, MEDICAID, SELFPAY | PROVIDERS: Family Provider Internal Medicine; PCP Internal Medicine; Referring Provider Internal Medicine; Visit Provider Internal Medicine | DX: I26.99 Other pulmonary embolism without acute cor pulmonale (principal) ==

== ENCOUNTER 2019-02-12 19:44 | Inpatient (IN) | payer MEDICARE, MEDICAID, SELFPAY ==
[2019-02-12 19:45] VITALS: BP 143/79; PULSE 87; RESP 16; TEMP 36.6; O2SAT 96; BMI 33.0
--- NOTE | 2019-02-12 20:14 | CT_ITS ---
STUDY: CT ABDOMEN AND PELVIS WITHOUT CONTRAST REASON FOR EXAM: Female, 58 years old. Right flank pain today RADIATION DOSAGE (If Supplied By Facility): CTDIvol = ( 17.48 ) mGy, DLP = ( 952.10 ) mGycm TECHNIQUE: Transaxial images were obtained from the dome of the diaphragm to the symphysis pubis without oral contrast, and without intravenous contrast. Sagittal and coronal images were reconstructed. Individualized dose optimization techniques were used for this CT. COMPARISON: Abdomen and pelvis January 24, 2018 FINDINGS: The visualized lung bases are unremarkable. Trace pericardial effusion. Normal liver. Normal gallbladder and extrahepatic biliary system. Normal spleen. Normal pancreas. Normal bilateral adrenal glands. Moderate right hydronephrosis due to a 5 to 6 mm ureterolith at the ureteral pelvic junction. Multiple nonobstructing nephroliths are noted on the right. Normal left kidney. Postsurgical changes consistent with gastric bypass. Normal small intestine. Anastomotic sutures rectosigmoid junction. The appendix is not identified. Normal abdominal aorta. Normal inferior vena cava. Normal retroperitoneum. Normal urinary bladder. Subcutaneous induration or fluid collection suprapubic region measuring 2 x 5.4 cm in AP and transverse dimensions. Surgical clips in the pelvis. Normal osseous structures. CT/Abdomen/Pelvis without Cont IMPRESSION: Moderate right hydronephrosis due to a 5 to 6 mm ureterolith at the ureteropelvic junction. Multiple nonobstructing nephroliths on the right. The pubic subcutaneous induration or fluid collection. Electronically Signed: Donald Brooks MD at 21:12 EDT , Service support ,
--- NOTE | 2019-02-12 20:19 | ED.VIS.GEN ---
History of Present Illness Chief Complaint: Complaint Informant: Patient Onset: Weeks Current Severity: Moderate Maximum Severity: Moderate Narrative: Patient has had symptoms of UTI for the past 2 weeks. She was initially seen at [facility] hospital and given Macrobid for 3 days. When this did not improve her symptoms she went to urgent care last week. Urine still appeared to be infected and she was switched to Cipro. Although patient has an allergy listed to Cipro, she states she can take the oral form, but not the IV form. She completed the course of Cipro yesterday. Today she had fevers, suprapubic cramping and pain, and right flank pain. She feels like she needs to urinate but cannot. Past Medical History - Allergies and Home Meds Allergies/Adverse Reactions: Allergies amoxicillin trihydrate [From Augmentin] Allergy (Verified 02/12/19 19:48) Hives brompheniramine maleate [From Dimetapp (brompheniramine-PPA)] Allergy (Verified 02/12/19 19:48) Hives cephalexin monohydrate [From Keflex] Allergy (Verified 02/12/19 19:48) Hives latex Allergy (Verified 02/12/19 19:48) Anaphylaxis phenylpropanolamine HCl [From Dimetapp (brompheniramine-PPA)] Allergy (Verified 02/12/19 19:48) Hives potassium clavulanate [From Augmentin] Allergy (Verified 02/12/19 19:48) Hives ciprofloxacin [From Cipro] Adverse Reaction (Verified 02/12/19 19:48) Other ciprofloxacin HCl [From Cipro] Adverse Reaction (Verified 02/12/19 19:48) Other sulfamethoxazole [From Bactrim] Adverse Reaction (Verified 02/12/19 19:48) Other Tetracyclines Adverse Reaction (Verified 02/12/19 19:48) Hives trimethoprim [From Bactrim] Adverse Reaction (Verified 02/12/19 19:48) Other Primary Care Physician: Mary Ellen Urrutia MD [Primary Care Provider] - Prior records reviewed: Yes Past Medical History: - - Reviewed Surgical History: appendectomy, cholecystectomy, gastric bypass - and reversal., hysterectomy, - - BL elbow ulnar nerve resection. Several abdominal surgeries, 39 total started with hysterectomy w/ bowel perforation and resection with subsequent nec fasc. Smoking Status: Never smoker - Family History Maternal Family History: Reports: No pertinent history Paternal Family History: Reports: Diabetes, Hypertension Review of Systems General: Reports: Chills, Fever Eyes: Denies: Visual changes - bilaterally ENT: Denies: Bilateral ear pain Cardiovascular: Denies: Chest pain Respiratory: Denies: Dyspnea Gastrointestinal: Reports: Abdominal pain, Nausea, Vomiting Genitourinary: Reports: Dysuria Musculoskeletal: Reports: Back pain - Flank pain Skin: Denies: Rash Neurological: Denies: Headache Hematologic: Denies: Easy bruising Allergy: Denies: Uticaria Physical Exam Vital Signs/Narrative: Vital Signs Temp Pulse Resp BP Pulse Ox 02/12/19 19:45 98 F 87 16 143/79 H 96 Inital Vital Signs reviewed: Yes General: Well nourished, Well developed ENT: Moist mucous membranes Neck: Supple Cardiovascular: Regular rate, Regular rhythm Respiratory: No distress, CTA bilaterally Abdomen: Soft, Tender - Right-sided abdominal tenderness.. Negative for: Guarding, Rebound tenderness Back: CVA tenderness - Right CVA tenderness Extremities: Nontender Skin: Normal color Neurological: Alert, Oriented x3 Psychological: Normal affect Diagnostic/Tx/Re-eval Impressions Abdomen/Pelvis CT 02/12/19 20:14 IMPRESSION: Moderate right hydronephrosis due to a 5 to 6 mm ureterolith at the ureteropelvic junction. Multiple nonobstructing nephroliths on the right. The pubic subcutaneous induration or fluid collection. Electronically Signed: Donald Brooks MD at 21:12 EDT , Service support , 02/12/19 20:14 Abdomen/Pelvis without Cont [CT] Stat Laboratory Results 02/12/19 02/12/19 02/12/19 20:32 20:32 20:32 WBC 6.7 RBC 4.44 Hgb 12.1 Hct 37.1 MCV 83.6 MCH 27.3 MCHC 32.6 RDW Std Deviation 43.3 RDW Coeff of Lucas 14.3 Plt Count 261 MPV 9.8 Immature Gran % (Auto) 0.800 Neut % (Auto) 75.1 H Lymph % (Auto) 17.0 L Finney % (Auto) 4.2 Eos % (Auto) 2.4 Baso % (Auto) 0.5 Absolute Neuts (auto) 5.0 Absolute Lymphs (auto) 1.13 Nucleated RBC % 0 PT 13.0 INR 1.0 Sodium 142 Potassium 4.3 Chloride 109 H Carbon Dioxide 27.0 Anion Gap 6 BUN 16 Creatinine 0.89 Estim Creat Clear Calc 76.32 Est GFR (MDRD) Af Amer 84 Est GFR (MDRD) Non-Af 70 BUN/Creatinine Ratio 18.0 Glucose 165 H Lactic Acid Calcium 8.8 Total Bilirubin 0.90 Direct Bilirubin 0.22 AST 20 ALT 25 Alkaline Phosphatase 120 H Total Protein 7.0 Albumin 3.5 Globulin 3.5 Urine Color Urine Clarity Urine pH Ur Specific [place] Urine Protein Urine Glucose (UA) Urine Ketones Urine Occult Blood Urine Nitrite Urine Bilirubin Urine Urobilinogen Ur Leukocyte Esterase Urine RBC Urine WBC Ur Squamous Epith Cells Calcium Oxalate Crystal Urine Bacteria Urine Mucus 02/12/19 02/12/19 20:45 21:42 WBC RBC Hgb Hct MCV MCH MCHC RDW Std Deviation RDW Coeff of Lucas Plt Count MPV Immature Gran % (Auto) Neut % (Auto) Lymph % (Auto) Finney % (Auto) Eos % (Auto) Baso % (Auto) Absolute Neuts (auto) Absolute Lymphs (auto) Nucleated RBC % PT INR Sodium Potassium Chloride Carbon Dioxide Anion Gap BUN Creatinine Estim Creat Clear Calc Est GFR (MDRD) Af Amer Est GFR (MDRD) Non-Af BUN/Creatinine Ratio Glucose Lactic Acid 1.9 Calcium Total Bilirubin Direct Bilirubin AST ALT Alkaline Phosphatase Total Protein Albumin Globulin Urine Color Yellow Urine Clarity Sl. Cloudy Urine pH 6.0 Ur Specific [place] 1.020 Urine Protein 30 H Urine Glucose (UA) Normal Urine Ketones Negative Urine Occult Blood 250 H Urine Nitrite Negative Urine Bilirubin Negative Urine Urobilinogen Normal Ur Leukocyte Esterase 25 H Urine RBC > 100 SEEN Urine WBC 5-10 SEEN Ur Squamous Epith Cells 0-5 SEEN Calcium Oxalate Crystal 1+ Urine Bacteria 0 SEEN Urine Mucus 0 SEEN - Medical Decision Making Patient was given morphine and Zofran along with IV fluids. Bladder scan only revealed 154 cc of urine. Test results are discussed with the patient. At this time it does appear her urine infection is improved, but she does now have evidence of a 6 mm proximal right ureter stone. Patient has been discussed with Dr. Barton. Patient be admitted overnight. If she does not pass the stone he will anticipate doing surgery tomorrow. ED Disposition - Plan for ED Patient: Disposition: Acute Care Hospital [facility] Diagnosis: Ureterolithiasis Referrals: Mary Ellen Urrutia MD [Primary Care Provider] -
[2019-02-12] MEDS: 0.9% Normal Saline 1,000 ML 150 ML IV (20:36)
[2019-02-12] MEDS: Ondansetron 4 MG/2 ML Vial IV (20:36)
[2019-02-12] MEDS: Morphine 4 MG/ML Syringe IV (20:36)
[2019-02-12 20:45] LABS: Absolute Lymphocyte Count 1.13 X10^3/uL (0.83-4.51); Basophil# 0.03 X10^3/uL; Basophil% 0.5 % (0-1); Eosinophil# 0.16 X10^3/uL; Eosinophils% 2.4 % (0-5); Hematocrit 37.1 % (37-47); Hemoglobin 12.1 g/dL (12.0-15.0); Lymphocyte # 1.13 X10^3/ul (4.0); Mean Corp Hgb Conc 32.6 g/dL (32-36); Mean Corpuscular Hgb 27.3 pg (27.0-32.0); Mean Corpuscular Volume 83.6 fL (81-99); Mean Platelet Vol. 9.8 fl (6.2-12.0); Monocyte# 0.28 X10^3/uL; Monocyte% 4.2 % (0-10); NRBC Flagged by Analyzer 0 % (0-5); Neutrophil # 5.01 X10^3/uL (2.7-7.7); Neutrophil % 75.1 % (47-70); Platelet Count 261 K/mm3 (150-450); RBC Distribution Width CV 14.3 % (11.6-14.6); RBC Distribution Width SD 43.3 fl (35.1-43.9); Red Blood Count 4.44 M/mm3 (4.2-5.4); White Blood Count 6.7 K/mm3 (4.4-11.0)
[2019-02-12 20:57] LABS: AST(SGOT) 20 U/L (15-37); Alanine Aminotransfer ALT/SGPT 25 U/L (13-56); Albumin, Serum 3.5 g/dL (3.2-5.0); Alkaline Phosphatase 120 U/L (45-117); Anion Gap 6 (5-15); BUN 16 mg/dL (7-18); Bilirubin, Direct 0.22 mg/dL (0.00-0.30); Calcium,Total 8.8 mg/dL (8.5-10.1); Chloride 109 mmol/L (98-107); Creatinine, Serum 0.89 mg/dL (0.55-1.02); EST Glomerular Filtration Rate 70 mL/min (>60); Est Glom Filt Rate - Afr Amer 84 mL/min (>60); Estimated Creatinine Clearance 76.32 ml/min; Globulin 3.5 g/dL (2.2-4.2); Glucose 165 mg/dL (74-106); Potassium 4.3 mmol/L (3.5-5.1); Sodium Level 142 mmol/L (136-145)
[2019-02-12 21:20] LABS: Lactic Acid 1.9 mmol/L (0.4-2.0)
[2019-02-12 21:49] VITALS: BP 144/78; PULSE 68; RESP 15; TEMP 36.9; O2SAT 98
[2019-02-12 21:53] LABS: Bacteria 0 SEEN /hpf (None Seen); Mucous, Urine 0 SEEN /hpf (<or=2+)
[2019-02-12 21:55] LABS: Color, Urine Yellow (Yellow); Glucose, Dipstick Normal (Normal); Ketone-Dipstick Negative (Negative); Leukocyte Esterase-Dipstick 25 /ul (Negative); Nitrite-Dipstick Negative (Negative); Occult Blood-Urine 250 /ul (Negative); Protein-Dipstick 30 mg/dl (Negative); Urine Bilirubin Dipstick Negative (Negative); Urine Clarity Sl. Cloudy (Clear); Urine Urobilinogen Normal (Normal)
[2019-02-12 22:03] LABS: Calcium Oxalate Crystals Ur 1+ /hpf (<or=2+); Red Blood Cells-Urine > 100 SEEN /hpf (0-5); Squamous Epithelial Cells - UA 0-5 SEEN /hpf (5-10); White Blood Cells 5-10 SEEN /hpf (0-5)
[2019-02-12 23:22] VITALS: RESP 16
[2019-02-12 23:28] VITALS: BMI 33.3
[2019-02-12 23:31] VITALS: BP 143/71; PULSE 68; RESP 18; TEMP 37.2; O2SAT 97
[2019-02-12 23:43] VITALS: BMI 33.4
[2019-02-13] VITALS (8 sets, daily range): BP systolic 118–144; BP diastolic 72–84; PULSE 68–75; RESP 14–16; TEMP 36.3–37; O2SAT 92–97; BMI 33.0
[2019-02-13] MEDS: Morphine 2 MG/ML Syringe IV ×5 (00:30→16:08)
[2019-02-13 02:31] LABS: Bedside Glucose 135 mg/dL (70-110)
[2019-02-13] MEDS: 0.9% Normal Saline 1,000 ML 90 ML IV ×2 (02:44→13:38)
[2019-02-13] MEDS: 0.9% NaCl Peripheral Flush Adult/Peds IV ×6 (04:48→16:07)
[2019-02-13] MEDS: Ondansetron 4 MG/2 ML Vial IV ×2 (04:48→13:43)
[2019-02-13] MEDS: Ketorolac 15 MG/ML Vial IV ×2 (05:58→12:22)
--- NOTE | 2019-02-13 06:00 | EKG12_ITS ---
Test Reason : PRE-OP Blood Pressure : / mmHG Vent. Rate : 070 BPM Atrial Rate : 070 BPM P-R Int : 146 ms QRS Dur : 082 ms QT Int : 414 ms P-R-T Axes : 058 -08 -19 degrees QTc Int : 447 ms Normal sinus rhythm Nonspecific T wave abnormality Abnormal ECG Confirmed by THEODORE LARA, LEMUEL ([id number]), tape editor AVIS HARDIN ([id number]) on 02/19/2019 12:15:42 PM Referred By: Kaden Barton Confirmed By:JEROME JAIMES MD
[2019-02-13 07:06] LABS: Bedside Glucose 129 mg/dL (70-110)
[2019-02-13 07:32] LABS: Hemoglobin A1c 7.5 % (4.2-6.3)
--- NOTE | 2019-02-13 09:45 | CASEMGMT ---
RN CLARK Face to Face with patient for initial transition planning/care coordination assessment. RN CM introduced self and role at [facility]. Patient lying in bed, alert and oriented. Patient willing to participate in assessment and is able to answer all questions appropriately. Care providers, pharmacy, and demographics verified. Patient wishes to discharge home, denies need for home health at this time. Patient states he has no further needs or concerns at this time. CM to follow for discharge planning needs that may arise. PCP: Renan Specialists: None [facility] Benefit: yes Living Will/HPOA: yes, Santosh Rogers LNOK: Living Arrangements: Patient lives with in first floor apartment. assists patient with dressing. Transportation: self/ DME/HHC: Patient denies any DME. Declines need for HHC. Disposition Plan: Patient to discharge home with family support and follow-up plans in place. Sara MONTES, RN, CM
--- NOTE | 2019-02-13 10:56 | HP.PCM_ITS ---
Problem List (1) Ureterolithiasis Status: Acute History of Present Illness Date of Admission: 02/13/19 Chief Complaint: right proximal ureteral calculi with high grade obstruction The patient is a 58 year old female presented to the hospital with with a stone in the proximal right ureter also stone in the kidney plan for admission to the hospital possible urinary tract infection so today we did place a stent in the operating room. Patient be admitted she is n.p.o. for the procedure. Past Medical History Past Medical History (Chronic Problems): Chronic Problems Hypertension (Chronic) History of uterine cancer (Chronic) Chronic pain syndrome (Chronic) History of cervical cancer (Chronic) Anxiety and depression (Chronic) Chronic diarrhea (Chronic) Allergies amoxicillin trihydrate [From Augmentin] Allergy (Verified 02/12/19 19:48) Hives brompheniramine maleate [From Dimetapp (brompheniramine-PPA)] Allergy (Verified 02/12/19 19:48) Hives cephalexin monohydrate [From Keflex] Allergy (Verified 02/12/19 19:48) Hives latex Allergy (Verified 02/12/19 19:48) Anaphylaxis phenylpropanolamine HCl [From Dimetapp (brompheniramine-PPA)] Allergy (Verified 02/12/19 19:48) Hives potassium clavulanate [From Augmentin] Allergy (Verified 02/12/19 19:48) Hives ciprofloxacin [From Cipro] Adverse Reaction (Verified 02/12/19 19:48) Other ciprofloxacin HCl [From Cipro] Adverse Reaction (Verified 02/12/19 19:48) Other sulfamethoxazole [From Bactrim] Adverse Reaction (Verified 02/12/19 19:48) Other Tetracyclines Adverse Reaction (Verified 02/12/19 19:48) Hives trimethoprim [From Bactrim] Adverse Reaction (Verified 02/12/19 19:48) Other Home Medications: Ambulatory Orders Medication Instructions Recorded Clonazepam [Klonopin] 1 mg PO QHS 11/02/13 Duloxetine Hcl [Cymbalta] 60 mg PO QHS 11/02/13 Quetiapine Fumarate [Seroquel] 100 mg PO QHS 11/02/13 Nflcnduh-Muvx-Gq 0.25 mg/ml 1 tab PO DAILY 04/07/14 Cholecalciferol (Vitamin D3) 50,000 unit PO FR 10/27/16 [Vitamin D3] Insulin Aspart [Novolog Flexpen] 18 units SC 0800,1200,1700 10/27/16 Insulin Glargine [Lantus SoloStar 9 units SC BID 10/27/16 Pen] Gabapentin [Neurontin] 300 mg PO QHS 02/12/19 Insulin Aspart [Novolog Flexpen 2 units SUBCUT PRN PRN 02/12/19 (BKC)] Losartan Potassium [Cozaar] 50 mg PO QHS 02/12/19 Meloxicam 15 mg PO QHS 02/12/19 Metoprolol Succinate [Toprol Xl] 25 mg PO QHS 02/12/19 Ondansetron [Zofran Odt] 4 mg PO Q8H PRN PRN 02/12/19 Pantoprazole Sodium [Protonix] 40 mg PO BIDCM 02/12/19 Potassium Chloride [K-Dur] 10 meq PO BID 02/12/19 Zolpidem Tartrate 10 mg PO QHS PRN PRN 02/12/19 Surgical History: appendectomy, cholecystectomy, gastric bypass - and reversal., hysterectomy, - - BL elbow ulnar nerve resection. Several abdominal surgeries, 39 total started with hysterectomy w/ bowel perforation and resection with subsequent nec fasc. 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 Lives: Alone Smoking Status: Never smoker Tobacco Use: Non-smoker Alcohol: None Drugs: None - *Family History Maternal History Items: No pertinent history Paternal History Items: Diabetes, Hypertension Review of Systems Constitutional: Denies: Chills, Fever, Weight Change HEENT: Denies: Head Aches, Sinus Congestion, Sinus Drainage Cardiovascular: Denies: Chest Pain, Palpitations Respiratory: Denies: Cough, Shortness of breath at rest, Sputum production Gastrointestinal: Denies: Abdominal Pain, Nausea, Vomiting Genitourinary: Denies: Dysuria Musculoskeletal: Denies: Joint Pain, Joint Tenderness Skin: Denies: Rash, Wounds Neurological: Denies: Numbness, Tingling, Focal weakness Psychiatric: Denies: Anxiety, Depression, Homicidal Ideations, Suicidal Ideations Hematologic/ Lymphatic: Denies: Easy Bruising, Easy Bleeding VTE Information - Inpt Only VTE Present on Admission: No VTE Mechan Device Prophylaxis: SCD's Patient Problems: Active and Suspected Problems Ureterolithiasis (Acute) - Physical Exam General: Alert, Oriented x3, Cooperative HEENT: Atraumatic, PERRLA, EOMI, Normocephalic Neck: Supple, No JVD, Negative Carotid Bruits Lungs: Clear to auscultation, Normal air movement Cardiovascular: Regular rate, No murmurs Abdomen: Bowel Sounds Present, Soft, Non Tender Extremities: No edema, Capillary Refill Less than 3 Seconds Skin: No rashes, No breakdown Musculoskeletal: No Tenderness to Palpation of Joints or Extremities Neurological: Cranial nerves II-XII grossly intact Psych/Mental Status: Normal Affect, Appropriate Vital Signs Temp Pulse Resp BP Pulse Ox 98.6 F 68 14 138/81 H 95 02/13/19 10:09 02/13/19 10:09 02/13/19 10:09 02/13/19 10:09 02/13/19 10:09 Oxygen Delivery Method Room Air Weight: 104.5 kg Body Mass Index (BMI) 33.0 Intake and Output for Last 24 Hours 02/11/19 02/12/19 02/13/19 23:59 23:59 23:59 Intake Total 1214 / 1214 Output Total 675 / 675 Balance 539 / 539 Laboratory Tests Past 24 Hrs 02/12/19 02/12/19 02/12/19 20:32 20:32 20:32 WBC 6.7 RBC 4.44 Hgb 12.1 Hct 37.1 MCV 83.6 MCH 27.3 MCHC 32.6 RDW Std Deviation 43.3 RDW Coeff of Lucas 14.3 Plt Count 261 MPV 9.8 Immature Gran % (Auto) 0.800 Neut % (Auto) 75.1 H Lymph % (Auto) 17.0 L Cata[place] % (Auto) 4.2 Eos % (Auto) 2.4 Baso % (Auto) 0.5 Absolute Neuts (auto) 5.0 Absolute Lymphs (auto) 1.13 Nucleated RBC % 0 PT 13.0 INR 1.0 Sodium 142 Potassium 4.3 Chloride 109 H Carbon Dioxide 27.0 Anion Gap 6 BUN 16 Creatinine 0.89 Estim Creat Clear Calc 76.32 Est GFR (MDRD) Af Amer 84 Est GFR (MDRD) Non-Af 70 BUN/Creatinine Ratio 18.0 Glucose 165 H Hemoglobin A1c Lactic Acid Calcium 8.8 Total Bilirubin 0.90 Direct Bilirubin 0.22 AST 20 ALT 25 Alkaline Phosphatase 120 H Total Protein 7.0 Albumin 3.5 Globulin 3.5 Urine Color Urine Clarity Urine pH Ur Specific [place] Urine Protein Urine Glucose (UA) Urine Ketones Urine Occult Blood Urine Nitrite Urine Bilirubin Urine Urobilinogen Ur Leukocyte Esterase Urine RBC Urine WBC Ur Squamous Epith Cells Calcium Oxalate Crystal Urine Bacteria Urine Mucus 02/12/19 02/12/19 02/12/19 20:32 20:45 21:42 WBC RBC Hgb Hct MCV MCH MCHC RDW Std Deviation RDW Coeff of Lucas Plt Count MPV Immature Gran % (Auto) Neut % (Auto) Lymph % (Auto) Cataño % (Auto) Eos % (Auto) Baso % (Auto) Absolute Neuts (auto) Absolute Lymphs (auto) Nucleated RBC % PT INR Sodium Potassium Chloride Carbon Dioxide Anion Gap BUN Creatinine Estim Creat Clear Calc Est GFR (MDRD) Af Amer Est GFR (MDRD) Non-Af BUN/Creatinine Ratio Glucose Hemoglobin A1c 7.5 H Lactic Acid 1.9 Calcium Total Bilirubin Direct Bilirubin AST ALT Alkaline Phosphatase Total Protein Albumin Globulin Urine Color Yellow Urine Clarity Sl. Cloudy Urine pH 6.0 Ur Specific [place] 1.020 Urine Protein 30 H Urine Glucose (UA) Normal Urine Ketones Negative Urine Occult Blood 250 H Urine Nitrite Negative Urine Bilirubin Negative Urine Urobilinogen Normal Ur Leukocyte Esterase 25 H Urine RBC > 100 SEEN Urine WBC 5-10 SEEN Ur Squamous Epith Cells 0-5 SEEN Calcium Oxalate Crystal 1+ Urine Bacteria 0 SEEN Urine Mucus 0 SEEN POC Glucose 02/13/19 02/13/19 06:03 01:10 POC Glucose 129 H 135 H Assessment/Plan All Active Problems Ureterolithiasis (Acute) 58-year-old female with a proximal stone in the right ureter causing right hydronephrosis also stone in the right kidney n.p.o. for today plan for cystoscopy right stent placement.
[2019-02-13 12:36] LABS: Bedside Glucose 151 mg/dL (70-110)
[2019-02-13 13:14] LABS: Hematocrit 34.1 % (37-47); Hemoglobin 11.2 g/dL (12.0-15.0); Mean Corp Hgb Conc 32.8 g/dL (32-36); Mean Corpuscular Hgb 26.9 pg (27.0-32.0); Mean Platelet Vol. 9.4 fl (6.2-12.0); Platelet Count 188 K/mm3 (150-450); RBC Distribution Width CV 14.4 % (11.6-14.6); RBC Distribution Width SD 42.4 fl (35.1-43.9); Red Blood Count 4.16 M/mm3 (4.2-5.4); White Blood Count 4.3 K/mm3 (4.4-11.0)
[2019-02-13 13:26] LABS: Anion Gap 6 (5-15); BUN 11 mg/dL (7-18); BUN/Creat Ratio 14.8 RATIO (10-20); Calcium,Total 8.1 mg/dL (8.5-10.1); Chloride 109 mmol/L (98-107); Creatinine, Serum 0.74 mg/dL (0.55-1.02); EST Glomerular Filtration Rate 86 mL/min (>60); Est Glom Filt Rate - Afr Amer 104 mL/min (>60); Glucose 156 mg/dL (74-106); Potassium 3.5 mmol/L (3.5-5.1); Sodium Level 143 mmol/L (136-145)
--- NOTE | 2019-02-13 13:47 | NURSING ---
pt off unit via bed for surgery
--- NOTE | 2019-02-13 14:49 | DCINST_ITS ---
Discharge Diet: Light diet - advance as tolerated Discharge Activity: Return to Normal Activity Call your doctor if your incision/area has: Continuous Slow Oozing, Sudden Increased Bleeding, Increased Pain/ Swelling, Increased Redness, Foul Smelling Discharge, Swelling at the incision site Suture Line Care: Avoid Pulling/Pushing, Avoid Pinching/Bending Allergies/Adverse Reactions: Allergies amoxicillin trihydrate [From Augmentin] Allergy (Verified 02/12/19 19:48) Hives brompheniramine maleate [From Dimetapp (brompheniramine-PPA)] Allergy (Verified 02/12/19 19:48) Hives cephalexin monohydrate [From Keflex] Allergy (Verified 02/12/19 19:48) Hives latex Allergy (Verified 02/12/19 19:48) Anaphylaxis phenylpropanolamine HCl [From Dimetapp (brompheniramine-PPA)] Allergy (Verified 02/12/19 19:48) Hives potassium clavulanate [From Augmentin] Allergy (Verified 02/12/19 19:48) Hives ciprofloxacin [From Cipro] Adverse Reaction (Verified 02/12/19 19:48) Other ciprofloxacin HCl [From Cipro] Adverse Reaction (Verified 02/12/19 19:48) Other sulfamethoxazole [From Bactrim] Adverse Reaction (Verified 02/12/19 19:48) Other Tetracyclines Adverse Reaction (Verified 02/12/19 19:48) Hives trimethoprim [From Bactrim] Adverse Reaction (Verified 02/12/19 19:48) Other Medications to take at Discharge Clonazepam [Klonopin] 1 mg PO QHS 11/02/13 Duloxetine Hcl [Cymbalta] 60 mg PO QHS 11/02/13 Quetiapine Fumarate [Seroquel] 100 mg PO QHS 11/02/13 Wkzcifgo-Vwho-Os 0.25 mg/ml 1 tab PO DAILY 04/07/14 Cholecalciferol (Vitamin D3) [Vitamin D3] 50,000 unit PO FR 10/27/16 Insulin Aspart [Novolog Flexpen] 18 units SC 0800,1200,1700 10/27/16 Insulin Glargine [Lantus SoloStar Pen] 9 units SC BID 10/27/16 Gabapentin [Neurontin] 300 mg PO QHS 02/12/19 Insulin Aspart [Novolog Flexpen (BKC)] 2 units SUBCUT PRN PRN 02/12/19 Losartan Potassium [Cozaar] 50 mg PO QHS 02/12/19 Meloxicam 15 mg PO QHS 02/12/19 Metoprolol Succinate [Toprol Xl] 25 mg PO QHS 02/12/19 Ondansetron [Zofran Odt] 4 mg PO Q8H PRN PRN 02/12/19 Pantoprazole Sodium [Protonix] 40 mg PO BIDCM 02/12/19 Potassium Chloride [K-Dur] 10 meq PO BID 02/12/19 Zolpidem Tartrate 10 mg PO QHS PRN PRN 02/12/19 Ciprofloxacin [Cipro] 500 mg PO BID #6 tab 02/13/19 Oxycodone HCl/Acetaminophen [Percocet 5/325] 1 tab PO Q4H PRN PRN 5 Days #20 tab 02/13/19 The following prescriptions were given: Ciprofloxacin [Cipro] 500 mg PO BID #6 tab Prescription Printed Oxycodone HCl/Acetaminophen [Percocet 5/325] 1 tab PO Q4H PRN PRN 5 Days #20 tab PRN Reason: Pain Prescription Printed Primary Care Physician: Mary Ellen Urrutia MD [Primary Care Provider] - Test Results: Test results from this visit will be discussed in further detail at your follow- up appointment, if applicable. Please Follow Up With: Kaden Barton MD When: call to get set up for stone treatment.
[2019-02-13] MEDS: Lidocaine Jelly 2% 20 ML Syringe (URO-JET) 20 APPLIC (14:53)
[2019-02-13] MEDS: Lubricating Jelly 60 GM Tube 30 GM TOPICAL (14:53)
--- NOTE | 2019-02-13 15:03 | OP.PCM_ITS ---
Problem List (1) Ureterolithiasis Status: Acute Report of Operation Date of Procedure: 02/13/19 Pre-Operative Diagnosis: Obstructing right renal calculi and ureteral calculi Post-Operative Diagnosis: Same Surgery/Procedure Performed:: Cystoscopy, right retrograde pyelogram interpretation of fluoroscopic images, and right stent placement Description of Surgical Findings:: 58-year-old female was admitted to the hospital with severe right renal colic. She failed outpatient management was admitted to the hospital directly from the emergency room. Today were taken to surgery to place a stent on the right side to alleviate the obstruction. 58-year-old female taken back to the operating room at the smooth induction of anesthesia she was placed supine on the table in dorsolithotomy position the urethra and vaginal area were prepped and draped in usual sterile fashion went to the bladder with a 21 [place] rigid cystourethroscope, into the bladder there are no tumors or stones, identified the trigone, identified the right and left ureteral orifice, cannulated the right ureteral orifice with a wire and a Pollack catheter performed a retrograde pyelogram interpreted the fluoroscopic images look to the contrast going of the kidneys could see the stones in the kidney and then over the wire advanced a stent, once a stent was in good position I pulled the wire the stent coiled in the kidney bladder good position at the string of the stent and trimmed it so that is a little bit of the string was hanging out the urethra plan is to set up for shockwave lithotripsy at the next available day. Type of Anesthesia:: General Drains: stent - Admit VTE Documentation VTE Present on Admission: No VTE Mechan Device Prophylaxis: SCD's
--- NOTE | 2019-02-17 10:26 | CASEMGMT ---
FERNIE CM Discharge Follow-up Phone Call: ABIODUN: Beba Strata: 3 Call Date: 02/17/19 Discharge Date: 02/13/19 Time of Call: 1020 Duration: 3 minutes ? Admitting Diagnosis: Rt ureteral calculi with obs Follow-up discharge call made. Pt states she is the same. Describes this as being in continued pain and with urine output only in drops. States she had just got off the phone with Dr. Barton's office and notified them of the same. Dr. Barton's office staff were getting a hold of Dr. Barton per patient. Pt states she has been taking the Percocet which helps some. States she has not been able to eat as much but understands the importance of taking in fluids. Reinforced the need for fluid intake. Pt states she also has a follow-up appointment with her PCP Dr. Urrutia on 03/04/19. Pt declined any additional questions or needs at this time. Encouraged pt to continue to follow-up with Dr. Barton regarding her continued complaints. Enedelia Negron RN
== END 2019-02-13 18:40 | disposition home or self-care (01) | DRG 661 ==
LOC: ED 23:05 → MS3 23:10
PROVIDERS: Anesthesiology; Admitting Provider Urology; Emergency Provider Emergency Medicine; Family Provider Internal Medicine; PCP Internal Medicine; Referring Provider Urology; Visit Provider Urology
PROC: 0T768DZ Dilation of Right Ureter with Intraluminal Device, Via Natural or Artificial Opening Endoscopic (ICD-10-PCS; principal; 2019-02-13 16:15)
DX: N13.2 Hydronephrosis with renal and ureteral calculous obstruction (principal); I10 Essential (primary) hypertension; Z85.42 Personal history of malignant neoplasm of other parts of uterus; Z90.710 Acquired absence of both cervix and uterus
CPT/HCPCS: 36415; 74176; 76000; 80048; 80076; 81001; 82962; 83036; 83605; 85025; 85027; 85610; 93005; 99285; J7030; A4216; C1769; C2617; J2405

== ENCOUNTER → 2019-02-24 14:11 | Outpatient (CLI) | payer MEDICARE, MEDICAID, SELFPAY ==
[2019-02-13 13:35] VITALS: BMI 33.0
--- NOTE | 2019-02-24 14:15 | RAD_ITS ---
STUDY: X-RAY - ABDOMEN/PELVIS REASON FOR EXAM: Female, 58 years old. Pain. Right renal stone. Stent. TECHNIQUE: Single AP view of the abdomen / pelvis. COMPARISON: CT scan 02/12/2019. FINDINGS: Right ureteral stent in satisfactory position. Possible calcifications in the lower pole of the right kidney although exam is very limited by overlying fecal material and bowel contents. No definite stones along the course of the ureter. There is an unremarkable bowel gas pattern. There is no demonstrated free abdominal air. The visualized liver, spleen and kidneys are grossly normal in size and morphology. There are calcified phleboliths in the pelvis. Normal visualized osseous structures. RAD/Abdomen Single View IMPRESSION: Grossly satisfactory appearance of right ureteral stent. Possible right lower pole renal stones. Electronically Signed: Gil Pierre MD at 16:12 EDT , Service support ,
== END ==
PROVIDERS: Family Provider Internal Medicine; PCP Internal Medicine; Referring Provider Nurse Practitioner Adult Health; Visit Provider Nurse Practitioner Adult Health
DX: N20.0 Calculus of kidney (principal); R82.998 Other abnormal findings in urine
CPT/HCPCS: 74018; 87086; 87088; 87106

== ENCOUNTER → 2019-04-07 15:26 | Outpatient (CLI) | payer MEDICARE, MEDICAID, SELFPAY ==
[2019-02-13 13:35] VITALS: BMI 33.0
--- NOTE | 2019-04-07 15:30 | RAD_ITS ---
STUDY: X-RAY - ABDOMEN/PELVIS REASON FOR EXAM: Female, 58 years old. Right-sided kidney stones, status post lithotripsy 6 weeks ago TECHNIQUE: Two AP supine views of the abdomen and pelvis. COMPARISON: Prior study of 02/24/2019 FINDINGS: Normal visualized lung bases. There is an unremarkable bowel gas pattern. There is no demonstrated free abdominal air. The visualized liver, spleen and kidneys are grossly normal in size and morphology. Surgical clips are seen in the pelvis. There is a phlebolith of the lower right pelvis. There has been interval removal of a right ureteral stent seen previously. Normal visualized osseous structures. RAD/Abdomen Single View IMPRESSION: No abnormal intra-abdominal or intrapelvic calcifications are seen at this time. There has been interval removal of a right ureteral stent noted on the prior study. Electronically Signed: Korey Mathew MD at 23:40 EDT , Service support ,
== END ==
PROVIDERS: Family Provider Internal Medicine; PCP Internal Medicine; Referring Provider Urology; Visit Provider Urology
DX: N20.0 Calculus of kidney (principal)
CPT/HCPCS: 74018

== ENCOUNTER 2019-08-16 13:55 | Emergency (ER) | payer MEDICARE, MEDICAID, SELFPAY ==
[2019-02-13 13:35] VITALS: BMI 33.0
[2019-08-16 13:56] VITALS: BP 153/82; PULSE 95; RESP 20; TEMP 36.6; O2SAT 96; BMI 31.5
--- NOTE | 2019-08-16 14:11 | CT_ITS ---
STUDY: CT ABDOMEN AND PELVIS WITH CONTRAST REASON FOR EXAM: Female, 58 years old. FALL X3 DAYS AGO --right flank pain. Bruising. Hematuria. Uterine and cervical CA. RADIATION DOSAGE (If Supplied By Facility): CTDIvol = ( 13.36 ) mGy, DLP = ( 1306.10 ) mGycm TECHNIQUE: Transaxial images were obtained from the dome of the diaphragm to the symphysis pubis without oral contrast. IV 100mL Isovue-300 was administered. Sagittal and coronal images were reconstructed. Individualized dose optimization techniques were used for this CT. COMPARISON: 02/12/2019. FINDINGS: Stable mild scarring in both lung bases. There is decreased attenuation of the liver consistent with steatosis. Stable hepatomegaly. Previous cholecystectomy. Stable moderate distention of the common bile duct. Atrophy of the pancreas. Stable mild splenomegaly. Normal adrenal glands. Both kidneys within normal limits. Evaluation of the GI tract is limited without oral contrast. There has been gastric bypass. The Cristobal-en-Y portion of the gastric bypass appears dilated as it was previously. Partial obstruction not excluded. No other dilated loops of small bowel or evidence for small bowel obstruction. Large bowel shows moderate to marked diffuse fecal retention. Appendix not definitely seen. Stable postsurgical changes in the sigmoid and rectum. Normal abdominal aorta. Normal inferior vena cava. Normal retroperitoneum. Normal urinary bladder. There is absence of the uterus consistent with a prior hysterectomy. No adenopathy is seen Normal abdominal wall. Normal osseous structures. CT/Abdomen/Pelvis WITH Contrast IMPRESSION: Distention of the Cristobal-en-Y portion of a gastric bypass. Partial obstruction is not excluded. The appearance is stable. Stable hepatomegaly. Stable mild splenomegaly. Electronically Signed: Gil Pierre MD at 16:25 EST , Service support ,
--- NOTE | 2019-08-16 14:12 | ED.VIS.INJ ---
History of Present Illness Chief Complaint: Back Informant: Patient, Significant Other Onset: Days - Patient fell August 13 getting out of the bathtub. She struck the edge of the sink. She complains of pain that she localizes to the right flank region. She also reports brown-red urine Mechanism/Context: Blunt Injury, Fall Quality of Pain: Dull, Aching Location: Flank and right upper quadrant Current Severity: Mild Maximum Severity: Severe Worsened by: Movement Relieved by: Nothing Associated Symptoms: Negative for: Parasthesias, Weakness, Loss of function, Inability to ambulate, Loss of consciousness, Amnesia Narrative: Patient is a 58-year-old woman with history of type 1 diabetes, hypertension who states she slipped getting out of bathtub on . She fell striking the right flank area on the edge of the sink. She has noted brown to dark red urine since fall. States is not as dark. She denies fever, chills night sweats. She states it hurts to breathe or move. She also complains of pain in the right upper quadrant. She denies allergies to pain medicine. She is not on an anticoagulant. She denies neck pain. She denies paresthesia, anesthesia or motor weakness. Tetanus Immunization: 5-10 years Prior similar symptoms: No Recent Illness/Hospitalization: No - Past Medical History (1) Type 1 diabetes mellitus Status: Chronic (2) Anxiety and depression Status: Chronic (3) History of cervical cancer Status: Chronic (4) History of uterine cancer Status: Chronic (5) Hypertension Status: Chronic Past Medical History - Allergies and Home Meds Allergies/Adverse Reactions: Allergies amoxicillin trihydrate [From Augmentin] Allergy (Verified 08/16/19 13:58) Hives brompheniramine maleate [From Dimetapp (brompheniramine-PPA)] Allergy (Verified 08/16/19 13:58) Hives cephalexin monohydrate [From Keflex] Allergy (Verified 08/16/19 13:58) Hives latex Allergy (Verified 08/16/19 13:58) Anaphylaxis phenylpropanolamine HCl [From Dimetapp (brompheniramine-PPA)] Allergy (Verified 08/16/19 13:58) Hives potassium clavulanate [From Augmentin] Allergy (Verified 08/16/19 13:58) Hives ciprofloxacin [From Cipro] Adverse Reaction (Verified 08/16/19 13:58) Other ciprofloxacin HCl [From Cipro] Adverse Reaction (Verified 08/16/19 13:58) Other sulfamethoxazole [From Bactrim] Adverse Reaction (Verified 08/16/19 13:58) Other Tetracyclines Adverse Reaction (Verified 08/16/19 13:58) Hives trimethoprim [From Bactrim] Adverse Reaction (Verified 08/16/19 13:58) Other Primary Care Physician: Mary Ellen Urrutia MD [Primary Care Provider] - Prior records reviewed: Yes Surgical History: appendectomy, cholecystectomy, gastric bypass - and reversal., hysterectomy, - - BL elbow ulnar nerve resection. Several abdominal surgeries, 39 total started with hysterectomy w/ bowel perforation and resection with subsequent nec fasc. Lives: Spouse/ Significant Other Smoking Status: Never smoker Alcohol: None Drugs: None - Family History Maternal Family History: Reports: No pertinent history Paternal Family History: Reports: Diabetes, Hypertension Review of Systems General: Denies: Chills, Fever Eyes: Denies: Visual changes - bilaterally, Blurred Vision - bilaterally ENT: Denies: Rhinorrhea, Sore throat Cardiovascular: Denies: Chest pain, Palpitations Respiratory: Denies: Dyspnea, Cough, Dyspnea on exertion Gastrointestinal: Reports: Abdominal pain, Nausea. Denies: Vomiting, Diarrhea, Constipation, Melena, Hematochezia Genitourinary: Reports: Hematuria. Denies: Dysuria, Frequency Musculoskeletal: Reports: Back pain. Denies: Myalgias, Arthralgias, Neck pain, Swelling, Extremity Pain Skin: Reports: -. Denies: Rash, Wounds Neurological: Denies: Headache, Weakness, Parasthesia Hematologic: Denies: Easy bruising, Easy bleeding Allergy: Denies: Uticaria Physical Exam Vital Signs/Narrative: Vital Signs Temp Pulse Resp BP Pulse Ox 08/16/19 13:56 97.9 F 95 20 H 153/82 H 96 Inital Vital Signs reviewed: Yes General: Well nourished, Well developed, Obese Head: Normocephalic, Atraumatic. Negative for: Trauma, Tenderness Eyes: Perrl, EOMI. Negative for: Pale conjunctiva, Scleral icterus ENT: TM's clear, No hemotympanum or drainage, No trauma Neck: Nontender, Full ROM. Negative for: Spinal Tenderness, Paraspinal Tenderness Cardiovascular: Regular rate, Regular rhythm, No murmurs Respiratory: No distress, CTA bilaterally, Decreased Air Movement - On the right. Negative for: Chest nontender Abdomen: Soft, Nondistended, Normal bowel sounds, No masses, Tender - Right upper quadrant with mild guarding, Guarding. Negative for: Nontender, Rebound tenderness Rectal: Deferred Back: CVA Tenderness - Right, Paraspinal Tenderness. Negative for: Nontender, CVA Tenderness - Left, Spinal Tenderness Skin: Normal color, No rash, Trauma - Contusion noted right lower ribs medial of the posterior axillary line there is no crepitus or subcutaneous air noted. Neurological: Alert, Oriented x3, Cranial nerves II-XII grossly intact, Normal Strength, Normal Sensation, Normal DTR Psychological: Normal affect - Glascow Coma Scale Eye Opening: Spontaneous Motor: Obeys Commands Verbal: Oriented Coma Scale Total: 15 Diagnostic/Tx/Re-eval 08/16/19 14:11 Abdomen/Pelvis WITH Contrast [CT] Stat Laboratory Results 08/16/19 08/16/19 08/16/19 14:50 14:50 14:50 WBC 7.0 RBC 4.88 Hgb 13.3 Hct 40.9 MCV 83.8 MCH 27.3 MCHC 32.5 RDW Std Deviation 47.0 H RDW Coeff of Lucas 15.5 H Plt Count 233 MPV 9.6 Immature Gran % (Auto) 0.400 Neut % (Auto) 77.8 H Lymph % (Auto) 15.1 L [place] % (Auto) 4.4 Eos % (Auto) 2.0 Baso % (Auto) 0.3 Absolute Neuts (auto) 5.5 Absolute Lymphs (auto) 1.06 Nucleated RBC % 0 PT 12.5 INR 1.0 APTT 27.7 Sodium 141 Potassium 4.0 Chloride 108 H Carbon Dioxide 26.0 Anion Gap 7 BUN 24 H Creatinine 0.95 Estim Creat Clear Calc 71.50 Est GFR (MDRD) Af Amer 78 Est GFR (MDRD) Non-Af 65 BUN/Creatinine Ratio 25.3 H Glucose 213 H Calcium 9.0 Urine Color Urine Clarity Urine pH Ur Specific [place] Urine Protein Urine Glucose (UA) Urine Ketones Urine Occult Blood Urine Nitrite Urine Bilirubin Urine Urobilinogen Ur Leukocyte Esterase Urine RBC Urine WBC Ur Squamous Epith Cells Urine Bacteria Urine Mucus 08/16/19 14:50 WBC RBC Hgb Hct MCV MCH MCHC RDW Std Deviation RDW Coeff of Lucas Plt Count MPV Immature Gran % (Auto) Neut % (Auto) Lymph % (Auto) [place] % (Auto) Eos % (Auto) Baso % (Auto) Absolute Neuts (auto) Absolute Lymphs (auto) Nucleated RBC % PT INR APTT Sodium Potassium Chloride Carbon Dioxide Anion Gap BUN Creatinine Estim Creat Clear Calc Est GFR (MDRD) Af Amer Est GFR (MDRD) Non-Af BUN/Creatinine Ratio Glucose Calcium Urine Color Yellow Urine Clarity Sl. Cloudy Urine pH 5.0 Ur Specific [place] 1.025 Urine Protein Negative Urine Glucose (UA) 250 H Urine Ketones Negative Urine Occult Blood Negative Urine Nitrite Positive H Urine Bilirubin Negative Urine Urobilinogen Normal Ur Leukocyte Esterase Negative Urine RBC 0 SEEN Urine WBC 0 SEEN Ur Squamous Epith Cells 0-5 SEEN Urine Bacteria 1+ Urine Mucus 0 SEEN Urine reveals bacteria but not hematuria. Negative leukoesterase. Positive glucose. Negative occult blood on macro. Blood sugar is 213 with a normal CO2 and anion gap. Renal functions normal. CBC is unremarkable. CT of the abdomen pelvis is pending. Case was turned over to Dr. Trung Norris. Plan is to discharge with prescription for Percocet for pain management. - Medical Decision Making With history of trauma gross hematuria and right upper quadrant pain with tenderness over the lower ribs need to evaluate for hepatic injury. There is a 13 to 50% incidence of hepatic injury with lower rib fractures. Also need to evaluate for extent of renal contusion since patient reports urinating dark red-brown urine. Trauma order set was initiated. She was medicated with morphine for her pain and Zofran for the nausea. CT of the abdomen pelvis IV contrast was ordered. This will evaluate the lower right lung field as well as lower ribs to determine if there is a fracture or even small pneumothorax or hemothorax. Furthermore this will evaluate for any injury to the liver as well. ED Disposition - Plan for ED Patient: Diagnosis: Minor contusion of right kidney, initial encounter, Contusion of flank and back Referrals: Mary Ellen Urrutia MD [Primary Care Provider] -
[2019-08-16] MEDS: 0.9% Normal Saline 1,000 ML 999 ML IV (14:52)
[2019-08-16] MEDS: morphine 8 MG/ML Syringe IV (14:53)
[2019-08-16] MEDS: Ondansetron 4 MG/2 ML Vial IV (14:53)
[2019-08-16 14:55] VITALS: BP 132/82; PULSE 85; RESP 15; O2SAT 95
[2019-08-16 15:04] LABS: Mucous, Urine 0 SEEN /hpf (<or=2+); Red Blood Cells-Urine 0 SEEN /hpf (0-5); White Blood Cells 0 SEEN /hpf (0-5)
[2019-08-16 15:06] LABS: Absolute Lymphocyte Count 1.06 X10^3/uL (0.83-4.51); Absolute Neutrophil Count 5.5 X10^3/uL (2.0-7.7); Basophil# 0.02 X10^3/uL; Basophil% 0.3 % (0-1); Eosinophil# 0.14 X10^3/uL; Hematocrit 40.9 % (37-47); Hemoglobin 13.3 g/dL (12.0-15.0); Lymphocyte # 1.06 X10^3/ul (4.0); Lymphocyte % 15.1 % (19-41); Mean Corp Hgb Conc 32.5 g/dL (32-36); Mean Corpuscular Hgb 27.3 pg (27.0-32.0); Mean Corpuscular Volume 83.8 fL (81-99); Mean Platelet Vol. 9.6 fl (6.2-12.0); Monocyte# 0.31 X10^3/uL; Monocyte% 4.4 % (0-10); NRBC Flagged by Analyzer 0 % (0-5); Neutrophil # 5.47 X10^3/uL (2.7-7.7); Neutrophil % 77.8 % (47-70); Platelet Count 233 K/mm3 (150-450); RBC Distribution Width CV 15.5 % (11.6-14.6); Red Blood Count 4.88 M/mm3 (4.2-5.4)
[2019-08-16 15:07] LABS: Color, Urine Yellow (Yellow); Glucose, Dipstick 250 mg/dl (Normal); Ketone-Dipstick Negative (Negative); Leukocyte Esterase-Dipstick Negative /ul (Negative); Nitrite-Dipstick Positive (Negative); Occult Blood-Urine Negative /ul (Negative); Protein-Dipstick Negative (Negative); Specific Gravity, Urine 1.025 (1.002-1.030); Urine Bilirubin Dipstick Negative (Negative); Urine Clarity Sl. Cloudy (Clear); Urine Urobilinogen Normal (Normal)
[2019-08-16 15:13] LABS: Bacteria 1+ /hpf (None Seen); Squamous Epithelial Cells - UA 0-5 SEEN /hpf (5-10)
[2019-08-16 15:14] LABS: Prothrombin Time (Protime)PT. 12.5 SECONDS (11.7-14.9)
[2019-08-16 15:15] LABS: Partial Thromboplast Time 27.7 Seconds (24.1-36.2)
[2019-08-16 15:20] LABS: Anion Gap 7 (5-15); BUN 24 mg/dL (7-18); BUN/Creat Ratio 25.3 RATIO (10-20); Chloride 108 mmol/L (98-107); Creatinine, Serum 0.95 mg/dL (0.55-1.02); EST Glomerular Filtration Rate 65 mL/min (>60); Est Glom Filt Rate - Afr Amer 78 mL/min (>60); Glucose 213 mg/dL (74-106); Sodium Level 141 mmol/L (136-145)
[2019-08-16 16:33] VITALS: BP 140/85; PULSE 88; RESP 19; O2SAT 97
--- NOTE | 2019-08-16 16:42 | ED.DCSUM_ITS ---
- ER Visit Summary Date of Service: 08/16/19 This patient was checked out to me by Dr. Babin with a CT pending. Test Results: Clinical Impression(s) from Imaging Studies Abdomen/Pelvis CT 08/16/19 14:11 IMPRESSION: Distention of the Cristobal-en-Y portion of a gastric bypass. Partial obstruction is not excluded. The appearance is stable. Stable hepatomegaly. Stable mild splenomegaly. Electronically Signed: Gil Pierre MD at 16:25 EST , Service support , Emergency Department Course and Treatment: Patient is resting comfortably. Treatment Plan: Patient will be discharged home with Percocet and Zofran. Instructed to follow-up with her primary care physician in 3 to 5 days if not improving. Return to the emergency department for any worsening symptoms. Disposition: To home in improved and stable condition. Impression: 1. Hematuria s/p post fall. This note was generated with [employer] dictation software. It may contain incorrect words, spelling, and punctuation that were not noted in review of the chart prior to signing ED Disposition - Plan for ED Patient: Diagnosis: Minor contusion of right kidney, initial encounter, Contusion of flank and back Instructions: Back Sprain/Strain Prescriptions: Oxycodone HCl/Acetaminophen [Percocet 5/325] 1 tablet PO Q6H PRN PRN 5 Days #20 tablet PRN Reason: Pain Score 6-10/10 Ondansetron [Zofran Odt] 4 mg PO Q8H PRN PRN #10 tablet PRN Reason: Nausea Referrals: Mary Ellen Urrutia MD [Primary Care Provider] - 3-5 Days if not improving
[2019-08-16 16:59] VITALS: BP 140/85; PULSE 89; RESP 18; O2SAT 94
== END 2019-08-16 17:11 | disposition home or self-care (01) ==
LOC: ED 14:26
PROVIDERS: Emergency Provider Emergency Medicine; PCP Internal Medicine
DX: S37.011A Minor contusion of right kidney, initial encounter (principal); S30.1XXA Contusion of abdominal wall, initial encounter; R16.2 Hepatomegaly with splenomegaly, not elsewhere classified; E66.9 Obesity, unspecified; W18.2XXA Fall in (into) shower or empty bathtub, initial encounter; Y93.9 Activity, unspecified; Y92.9 Unspecified place or not applicable; I10 Essential (primary) hypertension; E10.9 Type 1 diabetes mellitus without complications; F32.9 Major depressive disorder, single episode, unspecified; F41.9 Anxiety disorder, unspecified; Z85.41 Personal history of malignant neoplasm of cervix uteri; Z85.42 Personal history of malignant neoplasm of other parts of uterus; Z98.84 Bariatric surgery status; Z79.4 Long term (current) use of insulin; Z79.899 Other long term (current) drug therapy
CPT/HCPCS: 74177; 80048; 81001; 85025; 85610; 85730; 96361; 96374; 96375; 99283; J7030; Q9967; A4216; J2405

== ENCOUNTER 2020-07-19 12:19 | Emergency (ER) | payer MEDICARE, MEDICAID, SELFPAY ==
[2020-07-19 12:20] VITALS: BP 132/62; PULSE 86; RESP 16; TEMP 36.6; O2SAT 100; BMI 27.0
--- NOTE | 2020-07-19 12:30 | CT_ITS ---
STUDY: CT ABDOMEN AND PELVIS WITH CONTRAST REASON FOR EXAM: Female, 59 years old. UTI,HEMATOMA ON RT SIDE RADIATION DOSAGE (If Supplied By Facility): CTDIvol = ( 14.78 ) mGy, DLP = ( 870.10 ) mGycm TECHNIQUE: Transaxial images were obtained from the dome of the diaphragm to the symphysis pubis without oral contrast. IV 100mL Isovue-300 was administered. Sagittal and coronal images were reconstructed. Individualized dose optimization techniques were used for this CT. COMPARISON: Comparison is made with prior study dated 08/16/2019. FINDINGS: The visualized lung bases are unremarkable. The visualized portions of the heart are within normal limits. There is decreased attenuation of the liver consistent with steatosis. Mild hepatomegaly. The patient is status post cholecystectomy. There is mild splenomegaly. Normal pancreas. Normal bilateral adrenal glands. Normal right kidney. Normal left kidney. There is evidence of prior subtotal gastrectomy. Normal small intestine. Surgical anastomosis seen at the rectosigmoid junction. The appendix is visualized and appears normal. Normal abdominal aorta. Normal inferior vena cava. Normal retroperitoneum. Normal urinary bladder. There is absence of the uterus consistent with a prior hysterectomy. There is a 5.4 cm x 5.7 cm x 6.1 cm fluid collection in the anterior abdominal wall at the level of the mid abdomen. Mild degree of increased markings are seen in the surrounding tissues suggestive of a postoperative seroma if the patient has a history of recent anterior abdominal wall intervention. Normal osseous structures. CT/Abdomen/Pelvis W IV Cont ONLY IMPRESSION: Findings suggestive of a fluid collection in the anterior abdominal wall in the midline most likely secondary to recent postsurgical intervention and seroma collection. Mild splenomegaly. Fatty infiltration of the liver. Electronically Signed: Jose Cohn MD at 14:03 EST , Service support ,
--- NOTE | 2020-07-19 12:33 | ED.VIS.GEN ---
History of Present Illness Chief Complaint: Complaint Informant: Patient Onset: Days Narrative: Patient presents with worsening right flank pain for the past 3 or 4 days. She had a fall in August 2019. She had had problems with right flank pain since that time. She had been seen at [facility] and had multiple CT scans. Patient states she was recently told that she had a hematoma on the right side of her abdomen and they believe this was the cause of her right-sided pain. When pain worsened again 3 or 4 days ago she went back to urgent care today. She states the urinalysis showed a small amount of blood in her urine. Because they were unable to get a CT scan she was advised to come to the emergency room. She denies fever or chills. She denies dysuria frequency. She states has not been able to sleep the last 3 nights because of pain. - Past Medical History (1) Ureterolithiasis Status: Chronic (2) Anxiety and depression Status: Chronic (3) Chronic pain syndrome Status: Chronic (4) History of cervical cancer Status: Chronic (5) History of uterine cancer Status: Chronic (6) Hypertension Status: Chronic (7) Type 1 diabetes mellitus Status: Chronic Past Medical History - Allergies and Home Meds Allergies/Adverse Reactions: Allergies amoxicillin trihydrate [From Augmentin] Allergy (Verified 07/19/20 12:22) Hives brompheniramine maleate [From Dimetapp (brompheniramine-PPA)] Allergy (Verified 07/19/20 12:22) Hives cephalexin monohydrate [From Keflex] Allergy (Verified 07/19/20 12:22) Hives latex Allergy (Verified 07/19/20 12:22) Anaphylaxis phenylpropanolamine HCl [From Dimetapp (brompheniramine-PPA)] Allergy (Verified 07/19/20 12:22) Hives potassium clavulanate [From Augmentin] Allergy (Verified 07/19/20 12:22) Hives ciprofloxacin [From Cipro] Adverse Reaction (Verified 07/19/20 12:22) Other ciprofloxacin HCl [From Cipro] Adverse Reaction (Verified 07/19/20 12:22) Other sulfamethoxazole [From Bactrim] Adverse Reaction (Verified 07/19/20 12:22) Other Tetracyclines Adverse Reaction (Verified 07/19/20 12:22) Hives trimethoprim [From Bactrim] Adverse Reaction (Verified 07/19/20 12:22) Other Primary Care Physician: Mary Ellen Urrutia MD [Primary Care Provider] - Prior records reviewed: Yes Surgical History: appendectomy, cholecystectomy, gastric bypass - and reversal., hysterectomy, - - BL elbow ulnar nerve resection. Several abdominal surgeries, 39 total started with hysterectomy w/ bowel perforation and resection with subsequent nec fasc. Lives: Spouse/ Significant Other Smoking Status: Never smoker - Family History Maternal Family History: Reports: No pertinent history Paternal Family History: Reports: Diabetes, Hypertension Review of Systems General: Denies: Chills, Fever Eyes: Denies: Visual changes - bilaterally ENT: Denies: Bilateral ear pain Cardiovascular: Denies: Chest pain Respiratory: Denies: Dyspnea, Cough Gastrointestinal: Reports: Abdominal pain. Denies: Vomiting, Diarrhea Genitourinary: Denies: Dysuria Musculoskeletal: Reports: Back pain - Right flank Neurological: Denies: Headache Hematologic: Denies: Easy bruising, Easy bleeding Allergy: Denies: Uticaria Physical Exam Vital Signs/Narrative: Vital Signs Temp Pulse Resp BP Pulse Ox 07/19/20 12:20 97.9 F 86 16 132/62 H 100 Inital Vital Signs reviewed: Yes General: Well nourished, Well developed Head: Normocephalic ENT: Moist mucous membranes Neck: Supple Cardiovascular: Regular rate, Regular rhythm Respiratory: No distress, CTA bilaterally Abdomen: Soft, Tender - Right-sided abdominal tenderness to palpation. No guarding or rebound. No ecchymosis or overlying skin change. Extremities: Nontender Skin: Normal color Neurological: Alert, Oriented x3 Psychological: Normal affect Diagnostic/Tx/Re-eval Impressions Abdomen/Pelvis CT 07/19/20 12:30 IMPRESSION: Findings suggestive of a fluid collection in the anterior abdominal wall in the midline most likely secondary to recent postsurgical intervention and seroma collection. Mild splenomegaly. Fatty infiltration of the liver. Electronically Signed: Jose Cohn MD at 14:03 EST , Service support , 07/19/20 12:30 Abdomen/Pelvis W IV Cont ONLY [CT] Stat Laboratory Results 07/19/20 07/19/20 07/19/20 12:44 12:44 13:22 WBC 5.5 RBC 4.47 Hgb 12.8 Hct 39.3 MCV 87.9 MCH 28.6 MCHC 32.6 RDW Std Deviation 45.0 H RDW Coeff of Lucas 14.0 Plt Count 229 MPV 9.6 Immature Gran % (Auto) 0.400 Neut % (Auto) 66.8 Lymph % (Auto) 25.2 [place] % (Auto) 4.7 Eos % (Auto) 2.2 Baso % (Auto) 0.7 Absolute Neuts (auto) 3.7 Absolute Lymphs (auto) 1.39 Nucleated RBC % 0 Sodium 139 Potassium 3.6 Chloride 108 H Carbon Dioxide 26.0 Anion Gap 5 BUN 19 H Creatinine 0.87 Estim Creat Clear Calc 77.15 Est GFR (MDRD) Af Amer 86 Est GFR (MDRD) Non-Af 71 BUN/Creatinine Ratio 21.9 H Glucose 170 H Calcium 8.7 Urine Color Yellow Urine Clarity Clear Urine pH 5.0 Ur Specific [place] 1.015 Urine Protein Negative Urine Glucose (UA) Normal Urine Ketones Negative Urine Occult Blood Negative Urine Nitrite Negative Urine Bilirubin Negative Urine Urobilinogen Normal Ur Leukocyte Esterase 25 H Urine RBC 0 SEEN Urine WBC 0-5 SEEN Ur Squamous Epith Cells 0-5 SEEN Urine Bacteria RARE Urine Mucus 0 SEEN - Medical Decision Making Patient was given morphine and Zofran for pain control. Blood work is unremarkable. CT scan today does reveal a fluid collection measuring 5.4 x 5.7 x 6.1 cm. I was able to find 2 prior CTs. On August 152019 she had a CT here that revealed a normal abdominal wall. On 05/10/2020 she had a large fluid collection in the anterior abdominal wall measuring 1.9 x 7[address] states that this could be postop fluid collection, however patient states she has not had any abdominal surgeries in 2 years. She had previously been seen by a specialist at [facility] for mesh placement and reconstruction. She will contact him for further evaluation to see if the fluid can be drained. In the meantime she will be covered with analgesics to help control her symptoms. Addendum: Prior to the patient leaving the emergency room received a phone call from [facility] in [place] that they did not have [place] available. Nurse was able to verify with the pharmacy staff that was accurate. That prescription was canceled and a new prescription was sent to [facility] in [place] after discussion with the patient. ED Disposition - Plan for ED Patient: Disposition: Home or Assisted Living Diagnosis: Abdominal wall fluid collections Prescriptions: Hydrocodone Bitart/Apap 5-325 [[place] 5MG-325MG] 1 tablet PO Q6H PRN PRN 3 Days #10 tablet PRN Reason: Pain Transmission Status: Sent to [id number] Referrals: Mary Ellen Urrutia MD [Primary Care Provider] - Additional Instructions: As discussed, your CT scan reveals a continued fluid collection in the abdominal wall. Please follow-up with your surgeon to see if this can be drained to help your symptoms.
[2020-07-19 12:57] LABS: Absolute Lymphocyte Count 1.39 X10^3/uL (0.83-4.51); Absolute Neutrophil Count 3.7 X10^3/uL (2.0-7.7); Basophil# 0.04 X10^3/uL; Basophil% 0.7 % (0-1); Eosinophil# 0.12 X10^3/uL; Eosinophils% 2.2 % (0-5); Hematocrit 39.3 % (37-47); Hemoglobin 12.8 g/dL (12.0-15.0); Lymphocyte # 1.39 X10^3/ul (4.0); Lymphocyte % 25.2 % (19-41); Mean Corp Hgb Conc 32.6 g/dL (32-36); Mean Corpuscular Hgb 28.6 pg (27.0-32.0); Mean Corpuscular Volume 87.9 fL (81-99); Mean Platelet Vol. 9.6 fl (6.2-12.0); Monocyte# 0.26 X10^3/uL; Monocyte% 4.7 % (0-10); NRBC Flagged by Analyzer 0 % (0-5); Neutrophil # 3.69 X10^3/uL (2.7-7.7); Neutrophil % 66.8 % (47-70); Platelet Count 229 K/mm3 (150-450); Red Blood Count 4.47 M/mm3 (4.2-5.4); White Blood Count 5.5 K/mm3 (4.4-11.0)
[2020-07-19 13:03] LABS: Anion Gap 5 (5-15); BUN 19 mg/dL (7-18); BUN/Creat Ratio 21.9 RATIO (10-20); Calcium,Total 8.7 mg/dL (8.5-10.1); Chloride 108 mmol/L (98-107); Creatinine, Serum 0.87 mg/dL (0.55-1.02); EST Glomerular Filtration Rate 71 mL/min (>60); Est Glom Filt Rate - Afr Amer 86 mL/min (>60); Estimated Creatinine Clearance 77.15 ml/min; Glucose 170 mg/dL (74-106); Potassium 3.6 mmol/L (3.5-5.1); Sodium Level 139 mmol/L (136-145)
[2020-07-19 13:08] VITALS: BP 139/84; PULSE 76; RESP 15; O2SAT 99
[2020-07-19] MEDS: 0.9% Normal Saline 1,000 ML 150 ML IV (13:18)
[2020-07-19] MEDS: Morphine 4 MG/ML Syringe IV (13:18)
[2020-07-19] MEDS: Ondansetron 4 MG/2 ML Vial IV (13:18)
[2020-07-19 13:29] LABS: Mucous, Urine 0 SEEN /hpf (<or=2+); Red Blood Cells-Urine 0 SEEN /hpf (0-5)
[2020-07-19 13:33] LABS: Color, Urine Yellow (Yellow); Glucose, Dipstick Normal (Normal); Ketone-Dipstick Negative (Negative); Leukocyte Esterase-Dipstick 25 /ul (Negative); Nitrite-Dipstick Negative (Negative); Occult Blood-Urine Negative /ul (Negative); Protein-Dipstick Negative (Negative); Specific Gravity, Urine 1.015 (1.002-1.030); Urine Bilirubin Dipstick Negative (Negative); Urine Clarity Clear (Clear); Urine Urobilinogen Normal (Normal)
[2020-07-19 13:45] LABS: Bacteria RARE /hpf (None Seen); Squamous Epithelial Cells - UA 0-5 SEEN /hpf (5-10); White Blood Cells 0-5 SEEN /hpf (0-5)
[2020-07-19 15:15] VITALS: BP 122/87; PULSE 66; RESP 17; O2SAT 98
== END 2020-07-19 15:17 | disposition home or self-care (01) ==
PROVIDERS: Emergency Provider Emergency Medicine; PCP Internal Medicine
DX: R18.8 Other ascites (principal); I10 Essential (primary) hypertension; G89.4 Chronic pain syndrome; F41.9 Anxiety disorder, unspecified; F32.9 Major depressive disorder, single episode, unspecified; E10.9 Type 1 diabetes mellitus without complications; Z85.41 Personal history of malignant neoplasm of cervix uteri; Z85.42 Personal history of malignant neoplasm of other parts of uterus; Z87.442 Personal history of urinary calculi; Z98.84 Bariatric surgery status; Z79.4 Long term (current) use of insulin; Z79.899 Other long term (current) drug therapy
CPT/HCPCS: 74177; 80048; 81001; 85025; 96361; 96374; 96375; 99284; J7030; Q9967; A4216; J2405

== ENCOUNTER 2020-08-12 13:17 | Emergency (ER) | payer MEDICARE, MEDICAID, SELFPAY ==
[2020-08-12 13:18] VITALS: BP 135/87; PULSE 86; RESP 15; TEMP 36.5; O2SAT 99; BMI 26.5
--- NOTE | 2020-08-12 13:55 | CT_ITS ---
STUDY: CT BRAIN WITHOUT CONTRAST REASON FOR EXAM: Female, 59 years old. Fall, headache, mental status change RADIATION DOSAGE (If Supplied By Facility): CTDIvol = ( 44.99 ) mGy, DLP = ( 779.24 ) mGycm TECHNIQUE: Transaxial CT imaging of the brain was performed without administration of intravenous contrast material. Individualized dose optimization techniques were used for this CT. COMPARISON: No relevant priors. FINDINGS: Normal soft tissue structures. Normal calvarium. Normal size ventricles and extra-axial spaces for the patient''s age. Normal white matter tracts of the cerebral hemispheres. Normal basal ganglia and thalami. Normal brainstem. Normal cerebellum. There is no intracranial hemorrhage. There are no findings of an acute ischemic infarction. Partial opacification of the left ethmoid sinus. CT/Brain/Head without Contrast IMPRESSION: Normal unenhanced CT scan of the brain. Partial opacification of the left ethmoid sinus. Electronically Signed: Jose Cohn MD at 14:25 EST , Service support ,
--- NOTE | 2020-08-12 13:55 | CT_ITS ---
STUDY: CT FACIAL BONES WITHOUT CONTRAST REASON FOR EXAM: Female, 59 years old. Trauma RADIATION DOSAGE (If Supplied By Facility): CTDIvol = ( 29.38 ) mGy, DLP = ( 620.92 ) mGycm TECHNIQUE: The patient was scanned in a multi detector CT scanner. Sagittal and coronal images were reconstructed. Individualized dose optimization techniques were used for this CT. COMPARISON: None. FINDINGS: Normal soft tissue structures. Normal orbital moralez and orbital contents. Normal nasal bones and anterior nasal spine. Normal facial bones. There is no demonstrated fracture. Partial opacification of the left ethmoid sinus. CT/Sinus/Facial Bone IMPRESSION: Partial opacification of the left ethmoid sinus. Electronically Signed: Jose Cohn MD at 14:27 EST , Service support ,
--- NOTE | 2020-08-12 14:00 | ED.DCSUM_ITS ---
History of Present Illness Chief Complaint: Fall Informant: Patient Onset: Days - 2 Context: Gradual Onset - after hitting head Timing: Continuous Quality: see below Current Severity: Moderate Maximum Severity: Moderate Worsened by: light Relieved by: nothing Associated Symptoms: headache, n/v, memory loss intermittently Narrative: Patient states she was going down a flight of stairs 2 days ago when her foot got caught on a reflector or light on the step, causing her to fall down the flight into a wood pile versus her head. She states there were nails coming out of boards that she had to physically removed from her scalp. She was seen after the injury at the emergency department in [place], where she had a CT of the brain, facial bones, and x-ray of her knee all of which were read as negative. Since then she has been having concussion symptoms with some memory problems, nausea, headache, photophobia. She received a call yesterday from the radiology department at that hospital saying that there were errors in the interpretations, namely showing a patella fracture, a nasal bone fracture, and a right orbital fracture. She saw her doctor today who according to the patient sent her to the emergency department to get all of her imaging repeated. - Past Medical History (1) Anxiety and depression Status: Chronic (2) Chronic diarrhea Status: Chronic (3) Chronic pain syndrome Status: Chronic (4) History of cervical cancer Status: Chronic (5) History of uterine cancer Status: Chronic (6) Hypertension Status: Chronic (7) Type 1 diabetes mellitus Status: Chronic (8) Ureterolithiasis Status: Chronic Past Medical History - Allergies and Home Meds Allergies/Adverse Reactions: Allergies amoxicillin trihydrate [From Augmentin] Allergy (Verified 08/12/20 13:18) Hives brompheniramine maleate [From Dimetapp (brompheniramine-PPA)] Allergy (Verified 08/12/20 13:18) Hives cephalexin monohydrate [From Keflex] Allergy (Verified 08/12/20 13:18) Hives latex Allergy (Verified 08/12/20 13:18) Anaphylaxis phenylpropanolamine HCl [From Dimetapp (brompheniramine-PPA)] Allergy (Verified 08/12/20 13:18) Hives potassium clavulanate [From Augmentin] Allergy (Verified 08/12/20 13:18) Hives ciprofloxacin [From Cipro] Adverse Reaction (Verified 02/26/21 13:18) Other ciprofloxacin HCl [From Cipro] Adverse Reaction (Verified 08/12/20 13:18) Other sulfamethoxazole [From Bactrim] Adverse Reaction (Verified 08/12/20 13:18) Other Tetracyclines Adverse Reaction (Verified 08/12/20 13:18) Hives trimethoprim [From Bactrim] Adverse Reaction (Verified 08/12/20 13:18) Other Primary Care Physician: Mary Ellen Urrutia MD [Primary Care Provider] - Surgical History: appendectomy, cholecystectomy, gastric bypass - and reversal., hysterectomy, - - BL elbow ulnar nerve resection. Several abdominal surgeries, 39 total started with hysterectomy w/ bowel perforation and resection with subsequent nec fasc. Smoking Status: Never smoker - Family History Maternal Family History: Reports: No pertinent history Paternal Family History: Reports: Diabetes, Hypertension Review of Systems General: Denies: Chills, Fever, Sweats Eyes: Denies: Visual changes - bilaterally, Diplopia ENT: Denies: Bilateral ear pain, Rhinorrhea, Sore throat Cardiovascular: Denies: Chest pain, Palpitations Respiratory: Denies: Dyspnea, Cough, Dyspnea on exertion Gastrointestinal: Reports: Nausea, Vomiting. Denies: Abdominal pain, Diarrhea, Melena, Hematochezia Genitourinary: Denies: Dysuria, Hematuria, Frequency Musculoskeletal: Reports: Extremity Pain - Left knee. Denies: Neck pain, Back pain Skin: Reports: Abrasions. Denies: Rash, Wounds Neurological: Reports: Headache. Denies: Weakness, Numbness Physical Exam Vital Signs/Narrative: Vital Signs Temp Pulse Resp BP Pulse Ox 08/12/20 13:18 97.7 F L 86 15 135/87 H 99 Inital Vital Signs reviewed: Yes General: Well nourished, Well developed, No Acute Distress Head: Normocephalic, Trauma - Several areas right parietal scalp that are tender without crepitance or depression. In viewing scalp through patient's hair, no signs of any areas of infection., Tenderness - Right periorbital area without deformity or crepitance. Eyes: Perrl, EOMI - No entrapment but patient has pain in right eye with looking to the right ENT: Moist mucous membranes, No rhinorrhea, TM's clear - Without otorrhea or hemotympanum. Negative spear sign. Midface stable., - - No infraorbital hypoesthesia Neck: Supple, Nontender Cardiovascular: Regular rate, Regular rhythm, No murmurs Respiratory: No distress, CTA bilaterally, Chest nontender Abdomen: Soft, Nontender, Nondistended, Normal bowel sounds Back: Nontender, Normal Inspection Extremities: No edema, Tenderness - Left patella with abrasion, in addition to lateral knee joint line and tibial tuberosity. Limited ability to extend fully. Limited range of motion due to pain. No effusion. Skin: Normal color, No rash, Trauma - Abrasions left knee, face, scalp. Neurological: Alert, Oriented x3, Cranial nerves II-XII grossly intact, Normal Strength, Normal Sensation, Normal Gait - Except antalgic due to left lower extremity Psychological: Normal affect, Normal Mood Diagnostic/Tx/Re-eval Clinical Impression(s) from Imaging Studies Brain CT 08/12/20 13:55 IMPRESSION: Normal unenhanced CT scan of the brain. Partial opacification of the left ethmoid sinus. Electronically Signed: Jose Cohn MD at 14:25 EST , Service support , Facial/Sinus 08/12/20 13:55 IMPRESSION: Partial opacification of the left ethmoid sinus. Electronically Signed: Jose Cohn MD at 14:27 EST , Service support , Knee X-Ray 08/12/20 14:10 IMPRESSION: Normal x-ray examination of the knee. Electronically Signed: Jose Cohn MD at 14:28 EST , Service support , - Medical Decision Making Per request, patient imaging was repeated. Her knee shows no evidence of a patellar fracture on my interpretation, 4 views, and radiology is in agreement. Her head CT and facial CT are as above, they show no acute traumatic injuries. With the pain she is having with extraocular movements, and visual acuity is performed, she is 20/40 throughout. Attempted to discuss with ophthalmology, but was not able to get a call back from the on-call physician. Patient is okay following up as an outpatient. She was also given a prescription for Reglan since the Zofran she has at home is only helping partially with her nausea, as this may also help with her headaches. ED Disposition - Plan for ED Patient: Disposition: Home or Assisted Living Diagnosis: Concussion without loss of consciousness, Facial contusion, Contusion of left knee Instructions: ED Concussion Prescriptions: Metoclopramide [Reglan] 10 mg PO Q6H PRN #16 tab PRN Reason: Nausea Transmission Status: Pending to [id number] Referrals: Ethan Card MD [STAFF PHYSICIAN] - (call for eye appt) Mary Ellen Urrutia MD [Primary Care Provider] - 1 Week if not improving
--- NOTE | 2020-08-12 14:10 | RAD_ITS ---
STUDY: X-RAY - LEFT KNEE REASON FOR EXAM: Female, 59 years old. Injury TECHNIQUE: 4 view(s) of the knee. COMPARISON: None. FINDINGS: Normal visualized distal femur. Normal visualized proximal tibia and fibula. Normal proximal tibiofibular articulation. Normal medial femorotibial compartment. Normal lateral femorotibial compartment. Normal patellofemoral articulation. The soft tissue structures are unremarkable. RAD/Knee 4 or More Views IMPRESSION: Normal x-ray examination of the knee. Electronically Signed: Jose Cohn MD at 14:28 EST , Service support ,
== END 2020-08-12 16:58 | disposition home or self-care (01) ==
PROVIDERS: Emergency Provider Emergency Medicine; PCP Internal Medicine
DX: S06.0X0A Concussion without loss of consciousness, initial encounter (principal); S80.02XA Contusion of left knee, initial encounter; S00.01XA Abrasion of scalp, initial encounter; S00.81XA Abrasion of other part of head, initial encounter; S00.83XA Contusion of other part of head, initial encounter; W10.9XXA Fall (on) (from) unspecified stairs and steps, initial encounter; Y93.9 Activity, unspecified; Y92.9 Unspecified place or not applicable; F41.9 Anxiety disorder, unspecified; F32.9 Major depressive disorder, single episode, unspecified; G89.4 Chronic pain syndrome; I10 Essential (primary) hypertension; E10.9 Type 1 diabetes mellitus without complications; Z85.42 Personal history of malignant neoplasm of other parts of uterus; Z85.41 Personal history of malignant neoplasm of cervix uteri; Z87.442 Personal history of urinary calculi; Z98.84 Bariatric surgery status; Z79.4 Long term (current) use of insulin; Z79.899 Other long term (current) drug therapy
CPT/HCPCS: 70450; 70486; 73564; 99283

== ENCOUNTER 2021-04-18 20:05 | Emergency (ER) | payer MEDICARE, MEDICAID, SELFPAY ==
[2021-04-18 20:06] VITALS: BP 171/86; PULSE 92; RESP 15; TEMP 36; O2SAT 100; BMI 24.3
--- NOTE | 2021-04-18 20:12 | RAD_ITS ---
STUDY: X-RAY - LEFT WRIST REASON FOR EXAM: Female, 60 years old. INJURY TECHNIQUE: 3 view(s) of the wrist were obtained. COMPARISON: None. FINDINGS: Normal visualized distal radius and ulna. Normal radiocarpal articulation. Normal distal radioulnar articulation. Normal carpal bones. Normal carpal articulations. Normal carpometacarpal articulation of the thumb. Normal second through fifth carpometacarpal articulations. Normal visualized metacarpal bones. The soft tissue structures are unremarkable. RAD/Wrist min 3 Views IMPRESSION: Intact wrist Electronically Signed: Macario Mallory MD at 20:29 EDT Tel , Service support ,
--- NOTE | 2021-04-18 21:26 | EDS_ITS ---
HPI History of Present Illness Chief Complaint: Upper Extremity Injury Informant: patient Occured/Mechanism Mechanism/Context: Yes same level fall Onset/Context/Timing Onset: Today Timing: Continuous Quality of Pain: Aching and Throbbing Current Severity: Mild Maximum Severity: Moderate Narrative Narrative: Patient presents with a left wrist injury. She states she tripped over her dog earlier today and fell backwards. She put her left hand behind her to catch herself and now has pain to the left wrist. She denies pain in her elbow or shoulder. She denies any other injury from her fall. [facility] Medical History Anxiety and depression History of cervical cancer History of uterine cancer Hypertension Type 1 diabetes mellitus Ureterolithiasis Home Medications clonazepam [Klonopin] 1 mg PO QHS 11/02/13 [History Last Taken 02/11/19] duloxetine 60 mg PO QHS 11/02/13 [History Last Taken 02/11/19 60 mg] quetiapine 100 mg PO QHS 11/02/13 [History Last Taken 02/11/19] Xlkcunsz-Zkjk-Qf 0.25 mg/ml 1 tab PO DAILY 04/07/14 [History Last Taken 02/12/19] cholecalciferol (vitamin D3) 50,000 unit PO FR 10/27/16 [History Last Taken 02/06/19] insulin aspart U-100 [Novolog Flexpen U-100 Insulin] 18 units SUBCUT 0800,1200,1700 10/27/16 [History Last Taken Unknown] insulin glargine [Lantus SoloStar Pen] 9 units SUBCUT BID 10/27/16 [History Last Taken 02/12/19] gabapentin 300 mg PO QHS 02/12/19 [History Last Taken 02/11/19] insulin aspart U-100 2 units SUBCUT PRN PRN 02/12/19 [History Last Taken Unknown] losartan 50 mg PO QHS 02/12/19 [History Last Taken 02/11/19] meloxicam 15 mg PO QHS 02/12/19 [History Last Taken 02/11/19] metoprolol succinate 25 mg PO QHS 02/12/19 [History Last Taken 02/11/19] ondansetron 4 mg PO Q8H PRN PRN 02/12/19 [History Last Taken Unknown] pantoprazole 40 mg PO BIDCM 02/12/19 [History Last Taken 02/12/19] potassium chloride 10 meq PO BID 02/12/19 [History Last Taken 02/12/19] zolpidem 10 mg PO QHS PRN PRN 02/12/19 [History Last Taken 02/11/19] ciprofloxacin HCl 500 mg PO BID #6 tab 02/13/19 [Rx Last Taken Unknown] ondansetron 4 mg PO Q8H PRN PRN #10 tab 08/16/19 [Rx Last Taken Unknown] metoclopramide HCl 10 mg PO Q6H PRN #16 tab 08/12/20 [Rx Last Taken Unknown] Allergy/AdvReac Type Severity Reaction Status Date / Time amoxicillin trihydrate Allergy Hives Verified 04/18/21 20:05 [From Augmentin] brompheniramine maleate Allergy Hives Verified 04/18/21 20:05 [From Dimetapp (brompheniramine-PPA)] cephalexin monohydrate Allergy Hives Verified 04/18/21 20:05 [From Keflex] latex Allergy Anaphylaxis Verified 04/18/21 20:05 phenylpropanolamine HCl Allergy Hives Verified 04/18/21 20:05 [From Dimetapp (brompheniramine-PPA)] potassium clavulanate Allergy Hives Verified 04/18/21 20:05 [From Augmentin] ciprofloxacin [From Cipro] AdvReac Other Verified 04/18/21 20:05 ciprofloxacin HCl AdvReac Other Verified 04/18/21 20:05 [From Cipro] sulfamethoxazole AdvReac Other Verified 04/18/21 20:05 [From Bactrim] Tetracyclines AdvReac Hives Verified 04/18/21 20:05 trimethoprim [From Bactrim] AdvReac Other Verified 04/18/21 20:05 Social History Smoking Status: Never smoker ROS ROS ED Constitutional Constitutional ED: Denies chills or fever(s) Eyes Eyes: Denies change in vision ENT ENT ED: Denies sore throat Cardiovascular Cardiovascular: Denies chest pain Respiratory/Chest Respiratory/Chest: Denies cough or dyspnea Gastrointestinal Gastrointestinal: Denies abdominal pain, diarrhea, nausea or vomiting Genitourinary Genitourinary ED: Denies dysuria Musculoskeletal Musculoskeletal: Reports other Details: Left wrist pain ; Denies back pain Integumentary Denies rash Neurologic Neurologic: Denies headache(s), paresthesias or weakness Allergic/Immunologic Allergic/Immunologic ED: Denies urticaria EXAM Physical Exam Const Vital Signs: 04/18/21 20:06 Temperature 96.8 F L Temperature Source Temporal Pulse Rate 92 Respiratory Rate 15 Blood Pressure 171/86 H Blood Pressure Mean 114 Pulse Ox 100 Oxygen Delivery Method Room Air Positive well nourished and well developed General Appearance ED: well developed HEENT Reports moist mucous membranes Neck full ROM and supple Neck Narrative: No C-spine tenderness Resp normal respiratory effort and clear to auscultation bilaterally Cardio regular rate and regular rhythm GI non-tender Auscultation: normoactive bowel sounds Palpation: soft Extremity Extremity Narrative: Tenderness palpation along the radial aspect of the right wrist and proximal fourth metacarpal. No obvious deformity. No edema. No tenderness of the elbow or shoulder. Good cap refill distally and normal sensation. Neuro oriented x3 Sensorium / Orientation: alert Psych mental status grossly normal MDM MDM MDM Narrative Medical decision making narrative: Left wrist x-rays obtained per nursing protocol. Radiography Diagnostic Testing: Clinical Impression(s) from Imaging Studies Wrist X-Ray 04/18/21 20:12 IMPRESSION: Intact wrist Electronically Signed: Macario Mallory MD at 20:29 EDT Tel , Service support , Treatment and Re-Evaluation Comments:: X-ray reveals no acute bony abnormality. She declined anything for pain. She is given a Velcro wrist splint with instructions to come out of this several times a day to work on range of motion. She is to follow-up with her PCP in 1 week if not improved and would need repeat x-rays at that time. Discharge Plan Triage Chief Complaint: Upper Extremity Injury ED Provider: Shantel Diez Dx/Rx/DC Orders Clinical Impression: Left wrist sprain Instructions: ED Wrist Sprain Prescriptions: No Action clonazepam [Klonopin] 1 MG tablet 1 mg PO QHS RF: 0 quetiapine 100 MG tablet 100 mg PO QHS RF: 0 duloxetine 30 MG capsule 60 mg PO QHS RF: 0 Ghflvnzj-Fmzp-Rb 0.25 mg/ml tablet 1 tab PO DAILY RF: 0 cholecalciferol (vitamin D3) 10,000 UNIT capsule 50,000 unit PO FR RF: 0 insulin aspart U-100 [Novolog Flexpen U-100 Insulin] 100 UNITS/ML insulin pen 18 units subcut 0800,1200,1700 RF: 0 Lantus Solostar U-100 Insulin 100 UNITS/ML insulin pen 9 units subcut BID RF: 0 losartan 50 MG tablet 50 mg PO QHS RF: 0 meloxicam 15 MG tablet 15 mg PO QHS RF: 0 pantoprazole 40 MG tablet 40 mg PO BIDCM RF: 0 gabapentin 100 MG capsule 300 mg PO QHS RF: 0 metoprolol succinate 25 MG tablet extended release 24 hr 25 mg PO QHS RF: 0 zolpidem 10 MG tablet 10 mg PO QHS PRN PRN (Reason: Insomnia) RF: 0 ondansetron 4 MG tablet 4 mg PO Q8H PRN PRN (Reason: Nausea) RF: 0 insulin aspart U-100 100 UNITS/ML insulin pen 2 units subcut PRN PRN (Reason: Hyperglycemica) RF: 0 potassium chloride 10 MEQ tablet 10 meq PO BID RF: 0 ciprofloxacin HCl 500 MG tablet 500 mg PO BID Qty: 6 RF: 0 ondansetron 4 MG tablet 4 mg PO Q8H PRN PRN (Reason: Nausea) Qty: 10 RF: 0 metoclopramide HCl 10 MG tablet 10 mg PO Q6H PRN (Reason: Nausea) Qty: 16 RF: 0 Primary Care Provider: Mary Ellen Urrutia Referrals: Mary Ellen Urrutia MD [Primary Care Provider] - 1 Week if not improving Disposition Disposition: Home, Self Care Discharge Date/Time: 04/18/21 21:38
[2021-04-18 21:37] VITALS: RESP 16
== END 2021-04-18 21:38 | disposition home or self-care (01) ==
PROVIDERS: Emergency Provider Emergency Medicine; PCP Internal Medicine
DX: S63.502A Unspecified sprain of left wrist, initial encounter (principal); W01.0XXA Fall on same level from slipping, tripping and stumbling without subsequent striking against object, initial encounter; Y93.9 Activity, unspecified; Y92.9 Unspecified place or not applicable; I10 Essential (primary) hypertension; E10.9 Type 1 diabetes mellitus without complications; F32.A Depression, unspecified; F41.9 Anxiety disorder, unspecified; Z85.42 Personal history of malignant neoplasm of other parts of uterus; Z85.41 Personal history of malignant neoplasm of cervix uteri; Z87.442 Personal history of urinary calculi; Z79.4 Long term (current) use of insulin; Z79.899 Other long term (current) drug therapy
CPT/HCPCS: 73110; 99282

== ENCOUNTER 2021-11-27 15:36 | Emergency (ER) | payer MEDICARE, MEDICAID, SELFPAY ==
[2021-11-27 15:54] VITALS: BP 148/92; PULSE 89; RESP 16; TEMP 36.1; O2SAT 99; BMI 27.2
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
[2021-11-27] MEDS: HYDROcodone Bitartrate/Apap 5/325 Tablet PO (16:21)
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
--- NOTE | 2021-11-27 16:25 | RAD_ITS ---
EXAM: XR LUMBOSACRAL SPINE, 2 OR 3 VIEWS CLINICAL INDICATION: Injury/Pain TECHNIQUE: Frontal and lateral views of the lumbar spine and sacrum. This report was created using [employer] report [employer] technology. COMPARISON: None. FINDINGS: VERTEBRAE: Unremarkable. Preserved vertebral body height. No fracture. No spondylolisthesis. Preservation of the normal lumbar lordosis. No significant facet arthropathy. DISC SPACES: No acute findings. Disc spaces are maintained. GASTROINTESTINAL TRACT: Unremarkable as visualized. Included bowel gas pattern is non-obstructive. RAD/Lumbar Spine 2 or 3 Views IMPRESSION: No evidence of lumbar spinal fracture or spondylolisthesis. 4 Electronically Signed: Abelino Obrien MD at 16:51 EDT ,
[2021-11-27 16:26] LABS: Bedside Glucose 181 mg/dL (74-106)
== END 2021-11-27 17:25 | disposition home or self-care (01) ==
PROVIDERS: Emergency Provider Emergency Medicine; PCP Internal Medicine; Visit Provider Emergency Medicine
DX: S16.1XXA Strain of muscle, fascia and tendon at neck level, initial encounter (principal); E10.9 Type 1 diabetes mellitus without complications; Z79.4 Long term (current) use of insulin; S39.012A Strain of muscle, fascia and tendon of lower back, initial encounter; S20.213A Contusion of bilateral front wall of thorax, initial encounter; I10 Essential (primary) hypertension; V43.62XA Car passenger injured in collision with other type car in traffic accident, initial encounter; F41.9 Anxiety disorder, unspecified; F32.A Depression, unspecified; Z85.41 Personal history of malignant neoplasm of cervix uteri; Z85.42 Personal history of malignant neoplasm of other parts of uterus; Z87.442 Personal history of urinary calculi; Z79.899 Other long term (current) drug therapy; E66.9 Obesity, unspecified; Z68.27 Body mass index [BMI] 27.0-27.9, adult; Z90.710 Acquired absence of both cervix and uterus
CPT/HCPCS: 71046; 72040; 72100; 82962; 99284

== ENCOUNTER → 2022-11-30 | Outpatient (CLI) | payer MEDICARE, MEDICAID, SELFPAY ==
--- NOTE | 2022-11-30 09:30 | CALC_PTH ---
PATIENT: RIVERA GOYAL LOC: [facility] U#:[id number] AGE/SX: 62/F ROOM: RE11/30/[address]: Dr. Kaden Barton MD : 1960 BED: DIS: 11/30/2022 SPEC #: [id number] RECD: 12/03/22 08:45 STATUS: VIKAS REToro #: [id number] AUGUSTINE: 11/30/22 09:[address]: Kaden Barton DEPT: SURGICAL PATHOLOGY RECD BY: Jessica Hurt ENTERED: 12/03/22 08:45 SP TYPE: Calculi OTHR DR: Dr. Mary Ellen Urrutia MD [facility] Tissues: CALCULI Procedures: Surgery Specimen Level I HEADER OPERATION: Left ureteroscopy PRE-OP DIAGNOSIS: Calculus of left ureter TISSUE SUBMITTED: Calculus of left ureter GROSS DIAGNOSIS Calculus of left ureter, removal: Unremarkable calculus (gross diagnosis only). AM:sathya 12/04/2022 COMMENT If chemical analysis is requested on this specimen, please notify the laboratory. GROSS DESCRIPTION Received without fixative labeled with the patient's name and designated left ureteral calculi. The specimen consists of a single dark mcrae calculus measuring 0.6 x 0.5 x 0.4 cm. The entire specimen is saved if stone analysis is requested. / AM:sathya 12/03/2022 CPT: 41497
== END | disposition home or self-care (01) ==
LOC: LABSPEC 15:34
PROVIDERS: PCP Internal Medicine; Visit Provider Urology
DX: N20.1 Calculus of ureter (principal)
CPT/HCPCS: 88300

== ENCOUNTER → 2022-12-06 | Outpatient (CLI) | payer MEDICARE, MEDICAID, SELFPAY ==
[2022-12-12 14:38] LABS: Source LEFT URETER
== END | disposition home or self-care (01) ==
LOC: LABSPEC 11:33
PROVIDERS: PCP Internal Medicine; Referring Provider Urology; Visit Provider Urology
DX: N20.1 Calculus of ureter (principal)
CPT/HCPCS: 82360

== ENCOUNTER → 2023-01-10 | Outpatient (CLI) | payer MEDICARE, MEDICAID, SELFPAY | END | disposition home or self-care (01) | LOC: LABSPEC 16:16 | PROVIDERS: PCP Internal Medicine; Referring Provider Urology; Visit Provider Urology | DX: R31.9 Hematuria, unspecified (principal) | CPT/HCPCS: 87077; 87086; 87088; 87186 ==